=== PATIENT | male | born 1960 | race African-American/Black ===

== ENCOUNTER 2018-07-08 19:48 | Inpatient (IN) | payer OTHER ==
[~2018-07-08] VITALS: Ht 180.3 cm; Wt 84.8 kg
[2018-07-08 19:50] VITALS: BP 160/102
[2018-07-08] MEDS ORDERED: UNOBMED (19:56)
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
[2018-07-08 20:30] LABS: EOSINOPHILS % (AUTO) 2.3 % (0.0-3.0); HEMATOCRIT 28.1 % (42.0-52.0); HEMOGLOBIN 9.2 G/DL (14.2-18.0); LYMPHOCYTES % (AUTO) 11.8 % (20.0-45.0); MEAN CORPUSCULAR VOLUME 101 FL (80-99); MONOCYTES % (AUTO) 8.7 % (1.0-10.0); NEUTROPHILS % (AUTO) 74.2 % (45.0-75.0); PLATELET COUNT 239 K/UL (150-450); RED BLOOD COUNT 2.78 M/UL (4.70-6.10); RED CELL DISTRIBUTION WIDTH 12.7 % (11.6-14.8)
[2018-07-08] MEDS ORDERED: Nitroglycerin 2% oint pkt TOPIC ONE (21:00)
[2018-07-08 21:02] LABS: ANION GAP 20 mmol/L (5-15); BLOOD UREA NITROGEN 91 mg/dL (7-18); CALCIUM 7.4 MG/DL (8.5-10.1); CARBON DIOXIDE 20 MMOL/L (21-32); CHLORIDE 98 MMOL/L (98-107); CREATININE 9.3 MG/DL (0.55-1.30); SODIUM 138 MMOL/L (136-145)
[2018-07-08 21:15] LABS: ALANINE AMINOTRANSFERASE 42 U/L (12-78); ALBUMIN 3.6 G/DL (3.4-5.0); ALBUMIN/GLOBULIN RATIO 0.9 (1.0-2.7); ALKALINE PHOSPHATASE 101 U/L (46-116); ASPARTATE AMINO TRANSFERASE 35 U/L (15-37); BILIRUBIN,TOTAL 0.2 MG/DL (0.2-1.0); CREATINE KINASE 1287 U/L (26-308)
[2018-07-08] MEDS ORDERED: Enoxaparin 60mg Inj SUBQ ONE (21:30)
[2018-07-08] MEDS ORDERED: Aspirin Baby 81mg ORAL ONE (22:00)
[2018-07-08 22:39] VITALS: BP 150/129
[2018-07-08] MEDS ORDERED: Heparin 5000 units/ml inj IV SCH (23:15)
[2018-07-08] MEDS ORDERED: Heparin 25,000u/D5W 500ml 500 ML IV SCH (23:15)
[2018-07-08 23:48] LABS: INR 0.9 (0.9-1.1)
[2018-07-09] VITALS: BP 151/99
[2018-07-09] MEDS ORDERED: Heparin 5000 units/ml inj IV SCH
[2018-07-09 07:13] LABS: EOSINOPHILS % (AUTO) 4.4 % (0.0-3.0); HEMATOCRIT 26.8 % (42.0-52.0); HEMOGLOBIN 8.7 G/DL (14.2-18.0); LYMPHOCYTES % (AUTO) 16.6 % (20.0-45.0); MEAN CORPUSCULAR VOLUME 102 FL (80-99); PLATELET COUNT 237 K/UL (150-450); RED BLOOD COUNT 2.64 M/UL (4.70-6.10); RED CELL DISTRIBUTION WIDTH 12.4 % (11.6-14.8); WHITE BLOOD COUNT 5.7 K/UL (4.8-10.8)
[2018-07-09 07:28] LABS: ANION GAP 16 mmol/L (5-15); BLOOD UREA NITROGEN 88 mg/dL (7-18); CALCIUM 6.9 MG/DL (8.5-10.1); CARBON DIOXIDE 21 MMOL/L (21-32); CHLORIDE 99 MMOL/L (98-107); CHOLESTEROL 144 MG/DL (< 200); CREATININE 9.4 MG/DL (0.55-1.30); HDL CHOLESTEROL 89 MG/DL (40-60); POTASSIUM 2.9 MMOL/L (3.5-5.1); SODIUM 136 MMOL/L (136-145); TRIGLYCERIDES 64 MG/DL (30-150)
[2018-07-09 08:00] VITALS: BP 175/117
--- NOTE | 2018-07-09 09:03 | History and Physical ---
History & Physical (DB) History & Physical History & Physical DICT # [id number] Edgard Webb MD Jul 09, 2018 09:03
[2018-07-09] MEDS ORDERED: Heparin 25,000u/D5W 500ml 500 ML IV SCH ×2 (09:25)
--- NOTE | 2018-07-09 10:19 | Cardiac Electrophysiology PN ---
Subjective Subjective [id number] Objective Last 24 Hour Vital Signs Date Time Temp Pulse Resp B/P (MAP) Pulse Ox O2 Delivery O2 Flow Rate FiO2 07/09/18 04:00 111 07/09/18 00:00 98.0 115 22 151/99 (116) 96 07/09/18 00:00 111 07/08/18 23:34 Room Air 07/08/18 23:00 98.4 113 17 150/129 97 Room Air 07/08/18 22:39 98.4 113 17 150/129 97 Room Air 07/08/18 22:10 165/89 07/08/18 21:44 107 18 Room Air 07/08/18 21:13 165/89 07/08/18 19:51 98.6 107 18 177/95 97 Room Air 07/08/18 19:50 98.4 112 21 160/102 95 Room Air Intake and Output 07/08/18 07/09/18 19:00 07:00 Intake Total 17 ml Output Total 500 ml Balance -483 ml IV Total 17 ml Output Urine Total 500 ml # Voids 4 Laboratory Tests Test 07/08/18 20:20 07/08/18 20:30 07/09/18 01:05 07/09/18 04:00 White Blood Count 6.0 K/UL (4.8-10.8) 5.7 K/UL (4.8-10.8) Red Blood Count 2.78 M/UL (4.70-6.10) L 2.64 M/UL (4.70-6.10) L Hemoglobin 9.2 G/DL (14.2-18.0) L 8.7 G/DL (14.2-18.0) L Hematocrit 28.1 % (42.0-52.0) L 26.8 % (42.0-52.0) L Mean Corpuscular Volume 101 FL (80-99) H 102 FL (80-99) H Mean Corpuscular Hemoglobin 33.2 PG (27.0-31.0) H 32.8 PG (27.0-31.0) H Mean Corpuscular Hemoglobin Concent 32.8 G/DL (32.0-36.0) 32.3 G/DL (32.0-36.0) Red Cell Distribution Width 12.7 % (11.6-14.8) 12.4 % (11.6-14.8) Platelet Count 239 K/UL (150-450) 237 K/UL (150-450) Mean Platelet Volume 7.9 FL (6.5-10.1) 7.6 FL (6.5-10.1) Neutrophils (%) (Auto) 74.2 % (45.0-75.0) 65.0 % (45.0-75.0) Lymphocytes (%) (Auto) 11.8 % (20.0-45.0) L 16.6 % (20.0-45.0) L Monocytes (%) (Auto) 8.7 % (1.0-10.0) 12.0 % (1.0-10.0) H Eosinophils (%) (Auto) 2.3 % (0.0-3.0) 4.4 % (0.0-3.0) H Basophils (%) (Auto) 3.0 % (0.0-2.0) H 2.0 % (0.0-2.0) Sodium Level 138 MMOL/L (136-145) 136 MMOL/L (136-145) Potassium Level 3.0 MMOL/L (3.5-5.1) L 2.9 MMOL/L (3.5-5.1) L Chloride Level 98 MMOL/L (98-107) 99 MMOL/L (98-107) Carbon Dioxide Level 20 MMOL/L (21-32) L 21 MMOL/L (21-32) Anion Gap 20 mmol/L (5-15) H 16 mmol/L (5-15) H Blood Urea Nitrogen 91 mg/dL (7-18) H 88 mg/dL (7-18) H Creatinine 9.3 MG/DL (0.55-1.30) H 9.4 MG/DL (0.55-1.30) H Estimat Glomerular Filtration Rate 5.9 mL/min (>60) 7.0 mL/min (>60) Glucose Level 129 MG/DL (74-106) H 142 MG/DL (74-106) H Calcium Level 7.4 MG/DL (8.5-10.1) L 6.9 MG/DL (8.5-10.1) L Total Bilirubin 0.2 MG/DL (0.2-1.0) Aspartate Amino Transf (AST/SGOT) 35 U/L (15-37) Alanine Aminotransferase (ALT/SGPT) 42 U/L (12-78) Alkaline Phosphatase 101 U/L (46-116) Total Creatine Kinase 1287 U/L (26-308) H Creatine Kinase MB 5.0 NG/ML (0.0-3.6) H Creatine Kinase MB Relative Index 0.3 Troponin I 0.197 ng/mL (0.000-0.056) 0.222 ng/mL (0.000-0.056) Pro-B-Type Natriuretic Peptide > 63161 pg/mL (0-125) H Total Protein 7.4 G/DL (6.4-8.2) Albumin 3.6 G/DL (3.4-5.0) Globulin 3.8 g/dL Albumin/Globulin Ratio 0.9 (1.0-2.7) L Lipase 585 U/L (73-393) H Prothrombin Time 10.0 SEC (9.30-11.50) Prothromb Time International Ratio 0.9 (0.9-1.1) Activated Partial Thromboplast Time 30 SEC (23-33) Hemoglobin A1c 5.2 % (4.3-6.0) Thyroid Stimulating Hormone (TSH) 1.540 uiU/mL (0.358-3.740) Urine Opiates Screen Negative (NEGATIVE) Urine Barbiturates Screen Negative (NEGATIVE) Phencyclidine (PCP) Screen Negative (NEGATIVE) Urine Amphetamines Screen Negative (NEGATIVE) Urine Benzodiazepines Screen Negative (NEGATIVE) Urine Cocaine Screen Positive (NEGATIVE) H Urine Marijuana (THC) Screen Negative (NEGATIVE) Triglycerides Level 64 MG/DL (30-150) Cholesterol Level 144 MG/DL (< 200) LDL Cholesterol 51 mg/dL (<100) HDL Cholesterol 89 MG/DL (40-60) H Cholesterol/HDL Ratio 1.6 (3.3-4.4) L Test 07/09/18 07:20 Activated Partial Thromboplast Time 32 SEC (23-33) Troponin I 0.243 ng/mL (0.000-0.056) Microbiology Date/Time Source Procedure Growth Status 07/08/18 22:00 Rectum Received German Gray MD Jul 09, 2018 10:19
[2018-07-09] MEDS: Aspirin Baby 81mg ORAL SCH (10:25)
--- NOTE | 2018-07-09 10:35 | Consultation ---
Consult Note Consult Note asked to eval for renal failure Chief Complaint: Dyspnea/Respdistress Patient present with complaints of shortness of breath Patient reports that he was discharged from [facility] However comes here as he continues to feel short of breath patient reports that he has'kidney problems' Reports that he was supposed to be getting dialysis Also reports CHF Patient reports she also had a recent walking pneumonia diagnosed Patient reports recent epistaxis Denies any vomiting or diarrhea Complains of exertional dyspnea No Known Allergies (Unverified , 07/08/18) Past Medical History: No History, Except For Hx Cardiac Problems: Yes - CHF Hx Hypertension: Yes Hx COPD: Yes Hx Diabetes: No - RENAL FAILURE examined data reviewed discussed with publications distribution clerk/Plan Acute on Chronic renal failure Anemia Elevated troponin Hypertensive renal and heart disease Cocaine abuse Cardiomyopathy Simpson IV fluid 2D Echo BRIDGETT kidneys monitor renal parameters BP control Avoid nephrotoxics Richar Cm MD Jul 09, 2018 10:35
[2018-07-09 11:26] LABS: CREATINE KINASE 1044 U/L (26-308)
[2018-07-09 11:27] LABS: FERRITIN 221 NG/ML (8-388)
[2018-07-09] MEDS: Pantoprazole Inj IVP SCH (11:31)
--- NOTE | 2018-07-09 11:34 | Diagnostic Imaging Report ---
Indication: Chest pain Technique: XRAY Chest 1v Comparison: None Findings: Heart is enlarged. Mediastinal contours appear sharp. There is minimal likely atelectasis at the left base. Otherwise no definite focal airspace consolidation. No significant pleural effusion. No evidence of pneumothorax. No acute osseous abnormality. Impression: Cardiomegaly. Very mild left basilar likely subsegmental atelectasis
[2018-07-09] MEDS: Albuterol/Ipratropium 3ml neb HHN PRN ×3 (12:40→21:55)
--- NOTE | 2018-07-09 12:58 | Diagnostic Imaging Report ---
Indication: Abnormal renal function Technique: US Renal Comp Comparison: None Findings: Right kidney measures 9.1 cm in length. Left kidney measures 9.3 cm in length. Both kidneys demonstrate normal echogenicity. Mild fullness of the bilateral renal collecting systems noted. No sonographically appreciable renal stones. Simple appearing renal cysts are noted bilaterally. Bladder is mildly distended. Ureteral jets are noted bilaterally. There is mild bladder wall thickening. Imaged portions of the liver and inferior vena cava are grossly unremarkable. Bilateral pleural effusions incidentally identified. Impression: * Mild fullness of the bilateral renal collecting systems without radiographically appreciable stone and observed bilateral ureteral jets. Findings may be related to mild bladder distention. Consider repeat exam after bladder decompression. * Renal echogenicity appears within normal limits bilaterally. * Simple appearing renal cysts noted bilaterally. * Incidental note made of bilateral pleural effusions.
[2018-07-09 13:41] LABS: IRON 51 ug/dL (50-175); TOTAL IRON BINDING CAPACITY 227 ug/dL (250-450)
[2018-07-09 13:42] LABS: % IRON SATURATION 22 % (15-50)
--- NOTE | 2018-07-09 15:30 | History and Physical Report ---
DATE OF ADMISSION: 07/08/2018 REASON FOR ADMISSION: Shortness of breath. HISTORY OF PRESENT ILLNESS: The patient is a 58-year-old male with history of cocaine abuse, heart failure and renal insufficiency, recently discharged from [facility] with pneumonia and CHF. He was told that he needs dialysis, now presenting with shortness of breath and epistaxis in the setting of recent cocaine use. Upon arrival to the ER, he has been afebrile, but had sinus tachycardia and hypertensive urgency. He has been saturating well on room air. He has had elevated cardiac biomarkers and was started on Lovenox in the ER. His U-tox was positive for cocaine. Chest x-ray in the ER, per report, was consistent with heart failure, but is not available for review. PAST MEDICAL HISTORY: 1. CHF. 2. Renal disease. 3. Cocaine use. 4. Hypertension. PAST SURGICAL HISTORY: He denies. ALLERGIES: No known drug allergies. MEDICATIONS: Prior to admission medications, none. SOCIAL HISTORY: Tobacco and cocaine use. No alcohol. FAMILY HISTORY: Noncontributory. REVIEW OF SYSTEMS: Negative other than history of present illness. PHYSICAL EXAMINATION: VITAL SIGNS: Temperature 98, pulse 115, blood pressure 151/99, and respiratory rate 22. Saturating 96% on room air. GENERAL: He is a frail male, in no acute distress HEENT: Normocephalic and atraumatic. Oropharynx with moist mucous membranes. NECK: Supple without lymphadenopathy or JVD. CHEST: Clear with bibasilar rales. HEART: Regular rate and rhythm. ABDOMEN: Soft, nontender, and nondistended. EXTREMITIES: No cyanosis or clubbing. There is trace edema. ANCILLARY DATA: White count 5.7, hemoglobin 8.7, and platelet count 237. INR 0.9. Sodium 136, potassium 2.9, chloride 99, bicarb 21, BUN 98, and creatinine 9.4. Glucose 142. Calcium 6.9. A1c 5.2. Troponin 0.197, 0.222, 0.243. Total cholesterol 144, LDL 51, HDL 89. TSH 1.5. Urine toxicology is positive for cocaine. Chest x-ray per report, no acute findings but pending. ASSESSMENT: The patient is a 58-year-old male with history of cocaine and tobacco abuse, congestive heart failure, and renal impairment, presenting with decompensated heart failure and abnormal renal function with marked uremia. He has previously been told he needs dialysis. He is now being admitted for acute coronary syndrome and likely need for dialysis. PROBLEM LIST: 1. Congestive heart failure with acute decompensated heart failure. 2. Abnormal renal function, likely cardiorenal syndrome. 3. History of cocaine abuse with current positive tox screen. 4. Anemia. 5. Hypertension with hypertensive urgency. 6. Acute coronary syndrome/non-ST elevation myocardial infarction. TREATMENT PLAN: 1. Admit to telemetry. 2. Start IV unfractionated heparin. 3. Monitor for further bleeding. 4. Aspirin. 5. Nitroglycerin drip. 6. Lasix 40 mg IV daily for now and assess response. 7. Replete potassium. 8. Renal evaluation. 9. Likely will need dialysis. 10. Cardiology evaluation. 11. Echocardiogram. 12. Followup chest x-ray. 13. Cardiac diet. Edgard Webb M.D. DR: HANK JOB#: [id number] CC:
--- NOTE | 2018-07-09 15:45 | Consultation ---
DATE OF CONSULTATION: 07/09/2018 CARDIOLOGY CONSULTATION CONSULTING PHYSICIAN: German Gray M.D. REFERRING PHYSICIAN: Dr. Edgard Webb. REASON FOR CONSULTATION: Elevated troponin. HISTORY OF PRESENT ILLNESS: The patient is a 58-year-old gentleman with history of active cocaine use, was brought to the emergency room for shortness of breath. The patient apparently was recently discharged from [facility]. The patient continues to be short of breath. He also says he has kidney problems and he was supposed to get dialysis. The patient was admitted and a Cardiology consultation was requested. The patient also has had epistaxis and he admits to using cocaine. REVIEW OF SYSTEMS: Negative other than what was mentioned in the history of present illness. PAST MEDICAL HISTORY: 1. Hypertension. 2. Congestive heart failure. 3. COPD. 4. Chronic kidney disease. FAMILY HISTORY: Noncontributory. SOCIAL HISTORY: He continues to use cocaine actively. PHYSICAL EXAMINATION: VITAL SIGNS: Blood pressure 151/99, pulse 111, respirations 22, and temperature 98 degrees. HEAD AND NECK: Shows no JVD. LUNGS: Decreased breath sounds. CARDIOVASCULAR: Shows regular S1 and S2 with no gallop or murmur. ABDOMEN: Soft. EXTREMITIES: No pitting edema. LABORATORY AND DIAGNOSTIC DATA: His EKG showed sinus tachycardia at rate of 109 with nonspecific T-wave abnormalities. His labs show white count 5.7, hemoglobin 8.7, hematocrit 26.8, and platelet count 237,000. Sodium 136, potassium 2.9, BUN 88, and creatinine 9.4. Troponin 0.19, 0.22, and 0.24. ASSESSMENT AND PLAN: 1. Non-ST elevation myocardial infarction, likely type 2 in the setting of active cocaine use and renal failure. Troponin levels are flat at 0.2, 0.2 and 0.2. We will avoid beta-pablo in view of active cocaine use. Use aspirin and add Lipitor to his medical regimen. We will also get an echocardiogram to evaluate for ejection fraction and wall motion abnormality. 2. Hypertension. The patient is on Lasix 40 mg IV daily, likely will need dialysis under management Dr. Cm. Avoid ARMAND inhibitor and angiotensin-receptor pablo. Add Norvasc 5 mg daily to his medical regimen. 3. End-stage renal disease, has not been started on hemodialysis. Further evaluation by Dr. Fouladian. 4. Substance use with cocaine. Avoid beta-blockers. 5. Recent pneumonia. 6. Questionable congestive heart failure. Echocardiogram is pending. Thank you very much for allowing me to participate in the care of this patient. Please do not hesitate to contact me for any questions regarding my evaluation. German Gray M.D. DR: FEDERICO JOB#: [id number] CC:
[2018-07-09 16:00] VITALS: BP 183/123
[2018-07-09] MEDS: Docusate 100mg cap ORAL SCH (19:41)
[2018-07-09 20:00] VITALS: BP 161/102
[2018-07-10] VITALS: BP 162/104
[2018-07-10 04:00] VITALS: BP 173/107
[2018-07-10] MEDS: Albuterol/Ipratropium 3ml neb HHN PRN ×3 (05:10→18:51)
[2018-07-10 05:56] LABS: HEMATOCRIT 24.5 % (42.0-52.0); HEMOGLOBIN 7.9 G/DL (14.2-18.0); MEAN CORPUSCULAR VOLUME 103 FL (80-99); PLATELET COUNT 192 K/UL (150-450); RED BLOOD COUNT 2.39 M/UL (4.70-6.10); RED CELL DISTRIBUTION WIDTH 12.5 % (11.6-14.8); WHITE BLOOD COUNT 4.7 K/UL (4.8-10.8)
[2018-07-10 06:38] LABS: ALANINE AMINOTRANSFERASE 38 U/L (12-78); ALBUMIN/GLOBULIN RATIO 0.9 (1.0-2.7); ALKALINE PHOSPHATASE 82 U/L (46-116); ANION GAP 15 mmol/L (5-15); ASPARTATE AMINO TRANSFERASE 22 U/L (15-37); BILIRUBIN,TOTAL 0.2 MG/DL (0.2-1.0); BLOOD UREA NITROGEN 88 mg/dL (7-18); CALCIUM 6.6 MG/DL (8.5-10.1); CARBON DIOXIDE 20 MMOL/L (21-32); CHLORIDE 102 MMOL/L (98-107); CHOLESTEROL 135 MG/DL (< 200); CREATININE 8.9 MG/DL (0.55-1.30); HDL CHOLESTEROL 94 MG/DL (40-60); SODIUM 137 MMOL/L (136-145); TRIGLYCERIDES 28 MG/DL (30-150)
[2018-07-10 06:39] LABS: PHOSPHORUS 5.8 MG/DL (2.5-4.9)
[2018-07-10 08:00] VITALS: BP 167/100
[2018-07-10] MEDS: Docusate 100mg cap ORAL SCH ×3 (09:00→17:22)
[2018-07-10 10:28] LABS: CREATINE KINASE 790 U/L (26-308)
[2018-07-10] MEDS: Pantoprazole Inj IVP SCH (10:31)
[2018-07-10] MEDS: Aspirin Baby 81mg ORAL SCH (10:33)
[2018-07-10 12:00] VITALS: BP 181/105
--- NOTE | 2018-07-10 12:07 | Cardiac Electrophysiology PN ---
Assessment/Plan Assessment/Plan 1. Non-ST elevation myocardial infarction, likely type 2 in the setting of active cocaine use and renal failure. Troponin levels are flat at 0.2, 0.2 and 0.2.Avoid beta-pablo in view of active cocaine use. Use aspirin and Lipitor to his medical regimen. EF 45% 2. Hypertension. On Norvasc 5 mg bid and Clonidine patch Avoid ARMAND inhibitor and angiotensin-receptor pablo. 3. End-stage renal disease, has not been started on hemodialysis. Cr 8.[address] Cm. 4. Substance use with cocaine. Avoid beta-blockers. 5. Recent pneumonia. 6. Congestive heart failure. Echocardiogram EF 45% Subjective Subjective In sinus tach diuresing well on IV Lasix Objective Last 24 Hour Vital Signs Date Time Temp Pulse Resp B/P (MAP) Pulse Ox O2 Delivery O2 Flow Rate FiO2 07/10/18 11:19 99 22 100 Room Air 21 07/10/18 11:15 98 24 Room Air 07/10/18 11:14 98 24 99 Room Air 07/10/18 10:31 103 173/107 07/10/18 09:00 Room Air 07/10/18 08:00 102 07/10/18 08:00 96.8 102 20 167/100 (122) 98 07/10/18 05:25 103 20 100 Room Air 21 07/10/18 05:25 21 07/10/18 05:21 173/107 07/10/18 05:10 100 20 96 Room Air 21 07/10/18 04:00 104 07/10/18 04:00 98.0 19 173/107 (129) 95 07/10/18 00:00 104 07/10/18 00:00 98.0 98 19 162/104 (123) 97 07/09/18 22:05 99 20 99 Room Air 21 07/09/18 22:04 21 07/09/18 21:55 98 20 95 Room Air 21 07/09/18 21:00 Room Air 07/09/18 20:22 98 20 Room Air 21 07/09/18 20:08 181/114 07/09/18 20:00 97.9 100 20 161/102 (121) 96 07/09/18 20:00 101 07/09/18 19:43 102 181/114 12/27/18 16:18 183/123 07/09/18 16:00 107 07/09/18 16:00 98.8 105 22 183/123 (143) 92 07/09/18 15:56 101 20 100 Room Air 21 07/09/18 15:45 100 20 93 Room Air 21 07/09/18 15:45 21 07/09/18 12:49 100 20 100 Room Air 21 07/09/18 12:41 104 20 100 Room Air 21 07/09/18 12:41 21 Intake and Output 07/09/18 07/10/18 19:00 07:00 Intake Total 1340 ml Balance 1340 ml Intake Oral 1340 ml # Voids 8 3 # Bowel Movements 1 Laboratory Tests Test 07/09/18 15:34 07/09/18 15:42 07/10/18 01:14 07/10/18 04:00 C-Reactive Protein, Quantitative 1.7 mg/dL (0.00-0.90) H Activated Partial Thromboplast Time 30 SEC (23-33) Troponin I 0.150 ng/mL (0.000-0.056) 0.101 ng/mL (0.000-0.056) Total Creatine Kinase 790 U/L (26-308) H White Blood Count 4.7 K/UL (4.8-10.8) L Red Blood Count 2.39 M/UL (4.70-6.10) L Hemoglobin 7.9 G/DL (14.2-18.0) L Hematocrit 24.5 % (42.0-52.0) L Mean Corpuscular Volume 103 FL (80-99) H Mean Corpuscular Hemoglobin 33.2 PG (27.0-31.0) H Mean Corpuscular Hemoglobin Concent 32.4 G/DL (32.0-36.0) Red Cell Distribution Width 12.5 % (11.6-14.8) Platelet Count 192 K/UL (150-450) Mean Platelet Volume 7.0 FL (6.5-10.1) Neutrophils (%) (Auto) % (45.0-75.0) Lymphocytes (%) (Auto) % (20.0-45.0) Monocytes (%) (Auto) % (1.0-10.0) Eosinophils (%) (Auto) % (0.0-3.0) Basophils (%) (Auto) % (0.0-2.0) Erythrocyte Sedimentation Rate 81 MM/HR (0-20) H Urine Eosinophils Pending Sodium Level 137 MMOL/L (136-145) Potassium Level 4.0 MMOL/L (3.5-5.1) Chloride Level 102 MMOL/L (98-107) Carbon Dioxide Level 20 MMOL/L (21-32) L Anion Gap 15 mmol/L (5-15) Blood Urea Nitrogen 88 mg/dL (7-18) H Creatinine 8.9 MG/DL (0.55-1.30) H Estimat Glomerular Filtration Rate 7.5 mL/min (>60) Glucose Level 155 MG/DL (74-106) H Uric Acid 9.0 MG/DL (2.6-7.2) H Calcium Level 6.6 MG/DL (8.5-10.1) L Phosphorus Level 5.8 MG/DL (2.5-4.9) H Magnesium Level 1.6 MG/DL (1.8-2.4) L Total Bilirubin 0.2 MG/DL (0.2-1.0) Aspartate Amino Transf (AST/SGOT) 22 U/L (15-37) Alanine Aminotransferase (ALT/SGPT) 38 U/L (12-78) Alkaline Phosphatase 82 U/L (46-116) Pro-B-Type Natriuretic Peptide 50776 pg/mL (0-125) H Total Protein 6.4 G/DL (6.4-8.2) Albumin 3.0 G/DL (3.4-5.0) L Globulin 3.4 g/dL Albumin/Globulin Ratio 0.9 (1.0-2.7) L Triglycerides Level 28 MG/DL (30-150) L Cholesterol Level 135 MG/DL (< 200) LDL Cholesterol 48 mg/dL (<100) HDL Cholesterol 94 MG/DL (40-60) H Cholesterol/HDL Ratio 1.4 (3.3-4.4) L Test 07/10/18 09:10 Troponin I 0.090 ng/mL (0.000-0.056) Microbiology Date/Time Source Procedure Growth Status 07/08/18 22:00 Rectum - Preliminary Resulted 07/08/18 22:00 Rectum Received Objective HEAD AND NECK: No JVD. LUNGS: Decreased breath sounds. CARDIOVASCULAR: Regular S1 and S2 with no gallop or murmur. ABDOMEN: Soft. EXTREMITIES: No pitting edema. German Gray MD Jul 10, 2018 12:07
--- NOTE | 2018-07-10 12:56 | Nephrology Progress Note ---
Assessment/Plan Problem List: (1) ARF (acute renal failure) (2) Cocaine abuse (3) Acute exacerbation of CHF (congestive heart failure) (4) Hypertensive cardiomegaly with heart failure Assessment Acute on Chronic renal failure Anemia Elevated troponin Hypertensive renal and heart disease Cocaine abuse Cardiomyopathy Plan Simpson IV fluid slow BP control 2D Echo LV Hypokinesis 45% EJ Fx BRIDGETT kidneys * Mild fullness of the bilateral renal collecting systems without radiographically appreciable stone and observed bilateral ureteral jets. Findings may be related to mild bladder distention. Consider repeat exam after bladder decompression. monitor renal parameters Avoid nephrotoxics renal diet flomax Subjective ROS Limited/Unobtainable: No Constitutional: Reports: malaise Objective Objective Last 24 Hour Vital Signs Date Time Temp Pulse Resp B/P (MAP) Pulse Ox O2 Delivery O2 Flow Rate FiO2 07/10/18 11:19 99 22 100 Room Air 21 07/10/18 11:15 98 24 Room Air 21 07/10/18 11:14 98 24 99 Room Air 07/10/18 10:31 103 173/107 07/10/18 09:00 Room Air 07/10/18 08:00 102 07/10/18 08:00 96.8 102 20 167/100 (122) 98 07/10/18 05:25 103 20 100 Room Air 21 07/10/18 05:25 21 07/10/18 05:21 173/107 07/10/18 05:10 100 20 96 Room Air 21 07/10/18 04:00 104 07/10/18 04:00 98.0 19 173/107 (129) 95 07/10/18 00:00 104 07/10/18 00:00 98.0 98 19 162/104 (123) 97 07/09/18 22:05 99 20 99 Room Air 21 07/09/18 22:04 21 07/09/18 21:55 98 20 95 Room Air 21 07/09/18 21:00 Room Air 07/09/18 20:22 98 20 Room Air 21 07/09/18 20:08 181/114 07/09/18 20:00 97.9 100 20 161/102 (121) 96 07/09/18 20:00 101 07/09/18 19:43 102 181/114 07/09/18 16:18 183/123 12/27/18 16:00 107 07/09/18 16:00 98.8 105 22 183/123 (143) 92 07/09/18 15:56 101 20 100 Room Air 21 07/09/18 15:45 100 20 93 Room Air 21 07/09/18 15:45 21 Intake and Output 07/09/18 07/10/18 19:00 07:00 Intake Total 1340 ml Balance 1340 ml Intake Oral 1340 ml # Voids 8 3 # Bowel Movements 1 Laboratory Tests 07/09/18 15:34: C-Reactive Protein, Quantitative 1.7H 07/09/18 15:42: Activated Partial Thromboplast Time 30, Troponin I 0.150H 07/10/18 01:14: Troponin I 0.101H, Total Creatine Kinase 790H 07/10/18 04:00: White Blood Count 4.7L, Red Blood Count 2.39L, Hemoglobin 7.9L, Hematocrit 24.5L , Mean Corpuscular Volume 103H, Mean Corpuscular Hemoglobin 33.2H, Mean Corpuscular Hemoglobin Concent 32.4, Red Cell Distribution Width 12.5, Platelet Count 192, Mean Platelet Volume 7.0, Neutrophils (%) (Auto) , Lymphocytes (%) ( Auto) , Monocytes (%) (Auto) , Eosinophils (%) (Auto) , Basophils (%) (Auto) , Erythrocyte Sedimentation Rate 81H, Urine Eosinophils [Pending], Sodium Level 137, Potassium Level 4.0, Chloride Level 102, Carbon Dioxide Level 20L, Anion Gap 15, Blood Urea Nitrogen 88H, Creatinine 8.9H, Estimat Glomerular Filtration Rate 7.5, Glucose Level 155H, Uric Acid 9.0H, Calcium Level 6.6L, Phosphorus Level 5.8H, Magnesium Level 1.6L, Total Bilirubin 0.2, Aspartate Amino Transf ( AST/SGOT) 22, Alanine Aminotransferase (ALT/SGPT) 38, Alkaline Phosphatase 82, Pro-B-Type Natriuretic Peptide 52165P, Total Protein 6.4, Albumin 3.0L, Globulin 3.4, Albumin/Globulin Ratio 0.9L, Triglycerides Level 28L, Cholesterol Level 135, LDL Cholesterol 48, HDL Cholesterol 94H, Cholesterol/HDL Ratio 1.4L 07/10/18 09:10: Troponin I 0.090H Height (Feet): 5 Height (Inches): 11.00 Weight (Pounds): 162 General Appearance: no apparent distress Cardiovascular: tachycardia Respiratory/Chest: decreased breath sounds Abdomen: soft Richar Cm MD Jul 10, 2018 12:56
[2018-07-10] MEDS: Tamsulosin 0.4mg cap ORAL SCH ×2 (13:12→17:22)
[2018-07-10 16:00] VITALS: BP 174/114
--- NOTE | 2018-07-10 16:57 | Pulmonology Progress Note ---
Assessment/Plan Problems: (1) Epistaxis (2) Acute exacerbation of CHF (congestive heart failure) (3) Hypertensive cardiomegaly with heart failure (4) ACS (acute coronary syndrome) (5) Cocaine abuse (6) ARF (acute renal failure) Assessment/Plan ASSESSMENT: The patient is a 58-year-old male with history of cocaine and tobacco abuse, congestive heart failure, and renal impairment, presenting with decompensated heart failure and abnormal renal function with marked uremia. He has previously been told he needs dialysis. He is now being admitted for acute coronary syndrome and likely need for dialysis. PROBLEM LIST: 1. Congestive heart failure with acute decompensated heart failure. 2. Abnormal renal function, likely cardiorenal syndrome. 3. History of cocaine abuse with current positive tox screen. 4. Anemia. 5. Hypertension with hypertensive urgency. 6. Acute coronary syndrome/non-ST elevation myocardial infarction. TREATMENT PLAN: -Telemetry -Diuresis as able -BP recs -F/U cards and renal recs -Heparin held 2/2 bleeding -Cardiac diet -Needs OP cards F/U -Monitor HH, IV PPI, F/U FOBT, heme eval, should have GI eval at some point Subjective Allergies: Coded Allergies: No Known Allergies (Unverified , 07/08/18) Subjective AFVSS BP elevated on RA feels better still with epistaxis LVEF 45% Objective Last 24 Hour Vital Signs Date Time Temp Pulse Resp B/P (MAP) Pulse Ox O2 Delivery O2 Flow Rate FiO2 07/10/18 16:19 174/114 07/10/18 16:00 102 07/10/18 16:00 96.8 107 20 174/114 (134) 99 07/10/18 13:14 173/107 07/10/18 12:00 97.3 99 20 181/105 (130) 99 07/10/18 12:00 99 07/10/18 11:19 99 22 100 Room Air 21 07/10/18 11:15 98 24 Room Air 21 07/10/18 11:14 98 24 99 Room Air 21 07/10/18 10:31 103 173/107 07/10/18 09:00 Room Air 07/10/18 08:00 102 07/10/18 08:00 96.8 102 20 167/100 (122) 98 07/10/18 05:25 103 20 100 Room Air 21 07/10/18 05:25 21 07/10/18 05:21 173/107 07/10/18 05:10 100 20 96 Room Air 21 07/10/18 04:00 104 07/10/18 04:00 98.0 19 173/107 (129) 95 07/10/18 00:00 104 07/10/18 00:00 98.0 98 19 162/104 (123) 97 07/09/18 22:05 99 20 99 Room Air 21 07/09/18 22:04 21 07/09/18 21:55 98 20 95 Room Air 21 07/09/18 21:00 Room Air 07/09/18 20:22 98 20 Room Air 21 07/09/18 20:08 181/114 07/09/18 20:00 97.9 100 20 161/102 (121) 96 07/09/18 20:00 101 07/09/18 19:43 102 181/114 Intake and Output 07/09/18 07/10/18 19:00 07:00 Intake Total 1340 ml Balance 1340 ml Intake Oral 1340 ml # Voids 8 3 # Bowel Movements 1 General Appearance: WD/WN, no acute distress HEENT: normocephalic, atraumatic, anicteric, mucous membranes moist Respiratory/Chest: chest wall non-tender, lungs clear - but decreased @ bases, normal breath sounds, no respiratory distress Cardiovascular: normal peripheral pulses, normal rate, regular rhythm Abdomen: normal bowel sounds, soft, non tender, no organomegaly, non distended , no mass Extremities: no cyanosis, no clubbing, no edema Microbiology Date/Time Source Procedure Growth Status 07/08/18 22:00 Rectum - Preliminary Resulted 07/08/18 22:00 Rectum Received Laboratory Tests 07/10/18 01:14: Total Creatine Kinase 790H, Troponin I 0.101H 07/10/18 04:00: White Blood Count 4.7L, Red Blood Count 2.39L, Hemoglobin 7.9L, Hematocrit 24.5L , Mean Corpuscular Volume 103H, Mean Corpuscular Hemoglobin 33.2H, Mean Corpuscular Hemoglobin Concent 32.4, Red Cell Distribution Width 12.5, Platelet Count 192, Mean Platelet Volume 7.0, Neutrophils (%) (Auto) , Lymphocytes (%) ( Auto) , Monocytes (%) (Auto) , Eosinophils (%) (Auto) , Basophils (%) (Auto) , Erythrocyte Sedimentation Rate 81H, Urine Eosinophils [Pending], Sodium Level 137, Potassium Level 4.0, Chloride Level 102, Carbon Dioxide Level 20L, Anion Gap 15, Blood Urea Nitrogen 88H, Creatinine 8.9H, Estimat Glomerular Filtration Rate 7.5, Glucose Level 155H, Uric Acid 9.0H, Calcium Level 6.6L, Phosphorus Level 5.8H, Magnesium Level 1.6L, Total Bilirubin 0.2, Aspartate Amino Transf ( AST/SGOT) 22, Alanine Aminotransferase (ALT/SGPT) 38, Alkaline Phosphatase 82, Pro-B-Type Natriuretic Peptide 94062O, Total Protein 6.4, Albumin 3.0L, Globulin 3.4, Albumin/Globulin Ratio 0.9L, Triglycerides Level 28L, Cholesterol Level 135, LDL Cholesterol 48, HDL Cholesterol 94H, Cholesterol/HDL Ratio 1.4L 07/10/18 09:10: Troponin I 0.090H Current Medications Medications (Trade) Dose Ordered Sig/Harish Route PRN Reason Start Time Stop Time Status Last Admin Dose Admin Acetaminophen (Tylenol) 650 mg Q4H PRN ORAL Mild Pain/Temp > 100.5 07/08/18 23:15 08/07/18 23:14 07/10/18 00:43 Albuterol/ Ipratropium (Albuterol/ Ipratropium) 3 ml Q4H PRN HHN Shortness of Breath 07/09/18 12:30 07/14/18 12:29 07/10/18 11:12 Amlodipine Besylate (Norvasc) 5 mg BID ORAL 07/09/18 18:00 08/09/18 08:59 07/10/18 10:31 Aspirin (ASA) 81 mg DAILY ORAL 07/09/18 09:00 08/08/18 08:59 07/10/18 10:33 Clonidine HCl (Catapres Tab) 0.1 mg EVERY 8 HOURS ORAL 07/10/18 14:00 08/09/18 13:59 07/10/18 13:14 Clonidine HCl (Catapres Tab) 0.1 mg Q4H PRN ORAL BP over 165 syst 07/09/18 10:46 08/08/18 10:45 07/10/18 16:19 Dextrose (Dextrose 50%) 25 ml Q30M PRN IV Hypoglycemia 07/08/18 23:15 08/07/18 23:14 Dextrose (Dextrose 50%) 50 ml Q30M PRN IV Hypoglycemia 07/08/18 23:15 08/07/18 23:14 Diphenhydramine HCl (Benadryl) 25 mg Q6H PRN ORAL Itching/Pruritis 07/08/18 23:15 08/07/18 23:14 07/10/18 00:42 Docusate Sodium (Colace) 100 mg THREE TIMES A DAY ORAL 07/09/18 18:00 08/08/18 17:59 07/10/18 13:12 Pantoprazole (Protonix) 40 mg DAILY IVP 07/09/18 10:45 08/08/18 10:44 07/10/18 10:31 Sevelamer Carbonate (Renvela) 800 mg THREE TIMES A DAY ORAL 07/09/18 18:00 08/08/18 17:59 07/10/18 13:12 Sodium Chloride 1,000 ml @ 75 mls/hr [id number] IV 07/09/18 10:45 08/08/18 10:44 07/10/18 04:25 Tamsulosin HCl (Flomax) 0.4 mg BID ORAL 07/10/18 12:53 08/09/18 12:52 07/10/18 13:12 Edgard Webb MD Jul 10, 2018 16:57
[2018-07-10] MEDS ORDERED: HYDRALAZINE HCL50 MG ORAL (18:39)
[2018-07-10] MEDS ORDERED: FUROSEMIDE40 MG/5 ML ORAL (18:39)
[2018-07-10 20:00] VITALS: BP 174/110
[2018-07-11] VITALS (7 sets, daily range): BP systolic 136–185; BP diastolic 68–113
[2018-07-11] MEDS: Albuterol/Ipratropium 3ml neb HHN PRN ×4 (03:37→22:35)
--- NOTE | 2018-07-11 07:09 | Cardiology Report ---
APPROVED REPORT EXAM: Two-dimensional and M-mode echocardiogram with Doppler and color Doppler. INDICATION Chest Pain M-Mode DIMENSIONS IVSd0.9 (0.7-1.1cm)Left Atrium (MM)4.6 (1.6-4.0cm) LVDd5.1 (3.5-5.6cm)Aortic Root3.6 (2.0-3.7cm) PWd1.7 (0.7-1.1cm)Aortic Cusp Exc.2.1 (1.5-2.0cm) IVSs1.4 cm LVDs3.7 (2.5-4.0cm) PWs1.8 cm Normal left ventricular chamber size . Left ventricular ejection fraction estimated to be 55%. Mild left ventricular hypertrophy by 2-D. Trivial pericardial effusion . Mild bi-atrial enlargement. Right ventricular chamber sizes is within normal limits. Mild focal aortic valve sclerosis with adequate cusp excursion. Mildly thickened mitral valve leaflets with normal excursion. Mild mitral annulus and aortic root calcification. Pulmonic valve not well visualized. Normal tricuspid valve structure. IVC dilated at 2.7 cm with slightly physiologic collapse suggestive of increased RA pressure. A color flow and spectral Doppler study was performed and revealed: No aortic inssufiency . Moderate mitral regurgitation. Mitral inflow indicates restrictive pattern, implying severely elevated left atrial pressure (Grade III ). Mild tricuspid regurgitation. Tricuspid systolic velocities suggests peak right ventricular systolic pressure of 23 mmHg.
[2018-07-11] MEDS: Pantoprazole Inj IVP SCH (08:49)
[2018-07-11] MEDS: Tamsulosin 0.4mg cap ORAL SCH ×2 (08:50→17:09)
[2018-07-11] MEDS: Docusate 100mg cap ORAL SCH ×3 (08:51→17:15)
[2018-07-11] MEDS: Aspirin Baby 81mg ORAL SCH (08:51)
[2018-07-11 09:56] LABS: HEMATOCRIT 22.7 % (42.0-52.0); HEMOGLOBIN 7.3 G/DL (14.2-18.0); MEAN CORPUSCULAR VOLUME 102 FL (80-99); PLATELET COUNT 183 K/UL (150-450); RED BLOOD COUNT 2.24 M/UL (4.70-6.10); RED CELL DISTRIBUTION WIDTH 12.3 % (11.6-14.8); WHITE BLOOD COUNT 5.9 K/UL (4.8-10.8)
[2018-07-11 10:04] LABS: ANION GAP 14 mmol/L (5-15); BLOOD UREA NITROGEN 86 mg/dL (7-18); CALCIUM 7.4 MG/DL (8.5-10.1); CARBON DIOXIDE 19 MMOL/L (21-32); CHLORIDE 104 MMOL/L (98-107); CREATININE 8.4 MG/DL (0.55-1.30); POTASSIUM 4.1 MMOL/L (3.5-5.1); SODIUM 137 MMOL/L (136-145)
[2018-07-11 10:08] LABS: ALANINE AMINOTRANSFERASE 27 U/L (12-78); ALBUMIN 2.8 G/DL (3.4-5.0); ALBUMIN/GLOBULIN RATIO 0.8 (1.0-2.7); ALKALINE PHOSPHATASE 78 U/L (46-116); ASPARTATE AMINO TRANSFERASE 17 U/L (15-37); BILIRUBIN,TOTAL 0.2 MG/DL (0.2-1.0); PHOSPHORUS 5.2 MG/DL (2.5-4.9)
[2018-07-11] MEDS ORDERED: Allopurinol 100mg Tab ORAL SCH (13:45)
[2018-07-11] MEDS ORDERED: Minoxidil 2.5mg tab ORAL PRN (13:45)
[2018-07-11] MEDS ORDERED: Imdur 30mg tab ORAL SCH (13:45)
--- NOTE | 2018-07-11 13:49 | Nephrology Progress Note ---
Assessment/Plan Problem List: (1) ARF (acute renal failure) (2) Cocaine abuse (3) Acute exacerbation of CHF (congestive heart failure) (4) Hypertensive cardiomegaly with heart failure Assessment Acute on Chronic renal failure Anemia Elevated troponin Hypertensive renal and heart disease Cocaine abuse Cardiomyopathy Plan Simpson IV fluid slow BP control- adjust BP meds 2D Echo 55% ej fx BRIDGETT kidneys * Mild fullness of the bilateral renal collecting systems without radiographically appreciable stone and observed bilateral ureteral jets. Findings may be related to mild bladder distention. Consider repeat exam after bladder decompression. monitor renal parameters Avoid nephrotoxics renal diet flomax Subjective ROS Limited/Unobtainable: No Constitutional: Reports: malaise, weakness Objective Objective Last 24 Hour Vital Signs Date Time Temp Pulse Resp B/P (MAP) Pulse Ox O2 Delivery O2 Flow Rate FiO2 07/11/18 11:47 181/112 07/11/18 09:16 95 20 100 Room Air 21 07/11/18 09:10 98 24 98 Room Air 21 07/11/18 09:00 Nasal Cannula 2.0 07/11/18 08:50 105 183/113 07/11/18 08:00 97.3 103 18 185/113 (137) 98 07/11/18 08:00 105 07/11/18 07:42 88 18 Nasal Cannula 2.0 07/11/18 05:43 97.2 106 18 179/110 (133) 100 07/11/18 05:23 184/109 07/11/18 04:00 97.2 106 18 179/110 (133) 100 07/11/18 04:00 107 07/11/18 03:48 103 20 99 Nasal Cannula 28 07/11/18 03:39 101 24 97 Nasal Cannula 28 07/11/18 00:00 106 07/11/18 00:00 97.4 103 18 136/68 (90) 97 07/10/18 22:37 159/105 07/10/18 21:00 Nasal Cannula 2.0 07/10/18 20:00 104 07/10/18 20:00 97.7 108 20 174/110 (131) 96 07/10/18 19:09 84 18 Nasal Cannula 28 07/10/18 19:05 84 18 99 Nasal Cannula 28 07/10/18 18:54 80 22 98 Nasal Cannula 28 07/10/18 17:22 102 174/114 07/10/18 16:19 174/114 07/10/18 16:00 102 07/10/18 16:00 96.8 107 20 174/114 (134) 99 Intake and Output 07/10/18 07/11/18 19:00 07:00 Intake Total 1605 ml 945 ml Output Total 750 ml Balance 855 ml 945 ml Intake Oral 1230 ml IV Total 375 ml 945 ml Output Urine Total 750 ml # Voids 1 Laboratory Tests 07/10/18 16:54: Troponin I 0.078H 07/11/18 06:00: Urine Eosinophils None seen 07/11/18 09:20: White Blood Count 5.9, Red Blood Count 2.24L, Hemoglobin 7.3L, Hematocrit 22.7L , Mean Corpuscular Volume 102H, Mean Corpuscular Hemoglobin 32.4H, Mean Corpuscular Hemoglobin Concent 31.9L, Red Cell Distribution Width 12.3, Platelet Count 183, Mean Platelet Volume 7.3, Neutrophils (%) (Auto) , Lymphocytes (%) (Auto) , Monocytes (%) (Auto) , Eosinophils (%) (Auto) , Basophils (%) (Auto) , Differential Total Cells Counted 100, Neutrophils % ( Manual) 78H, Lymphocytes % (Manual) 8L, Monocytes % (Manual) 8, Eosinophils % ( Manual) 5H, Basophils % (Manual) 1, Band Neutrophils 0, Platelet Estimate Adequate, Platelet Morphology Normal, Red Blood Cell Morphology Normal, Sodium Level 137, Potassium Level 4.1, Chloride Level 104, Carbon Dioxide Level 19L, Anion Gap 14, Blood Urea Nitrogen 86H, Creatinine 8.4H, Estimat Glomerular Filtration Rate 8.0, Glucose Level 145H, Uric Acid 7.9H, Calcium Level 7.4L, Phosphorus Level 5.2H, Magnesium Level 1.7L, Total Bilirubin 0.2, Aspartate Amino Transf (AST/SGOT) 17, Alanine Aminotransferase (ALT/SGPT) 27, Alkaline Phosphatase 78, Pro-B-Type Natriuretic Peptide [id number], Total Protein 6.1L, Albumin 2.8L, Globulin 3.3, Albumin/Globulin Ratio 0.8L Height (Feet): 5 Height (Inches): 11.00 Weight (Pounds): 186 General Appearance: no apparent distress Cardiovascular: tachycardia Respiratory/Chest: decreased breath sounds Abdomen: distended Objective no change Richar Cm MD Jul 11, 2018 13:49
--- NOTE | 2018-07-11 14:21 | Cardiac Electrophysiology PN ---
Assessment/Plan Assessment/Plan 1. Non-ST elevation myocardial infarction, likely type 2 in the setting of active cocaine use and renal failure. Troponin levels are flat at 0.2, 0.2 and 0.2.Avoid beta-pablo in view of active cocaine use. Use aspirin and Lipitor to his medical regimen. EF 45% 2. Hypertension. On Norvasc 5 mg bid and Clonidine patch. Avoid beta- blockers. Avoid ARMAND inhibitor and angiotensin-receptor pablo. 3. End-stage renal disease, has not been started on hemodialysis. Cr 8.[address] Cm.Refusing HD! 4. Substance use with cocaine. Avoid beta-blockers. 5. Recent pneumonia. 6. Congestive heart failure. Echocardiogram EF 45% Subjective Subjective Diuresing well on IV Lasix. Still refusing HD Objective Last 24 Hour Vital Signs Date Time Temp Pulse Resp B/P (MAP) Pulse Ox O2 Delivery O2 Flow Rate FiO2 07/11/18 12:00 97.7 105 18 160/107 (124) 98 07/11/18 11:47 181/112 07/11/18 09:16 95 20 100 Room Air 21 07/11/18 09:10 98 24 98 Room Air 21 07/11/18 09:00 Nasal Cannula 2.0 07/11/18 08:50 105 183/113 07/11/18 08:00 97.3 103 18 185/113 (137) 98 07/11/18 08:00 105 07/11/18 07:42 88 18 Nasal Cannula 2.0 07/11/18 05:43 97.2 106 18 179/110 (133) 100 07/11/18 05:23 184/109 07/11/18 04:00 97.2 106 18 179/110 (133) 100 07/11/18 04:00 107 07/11/18 03:48 103 20 99 Nasal Cannula 28 07/11/18 03:39 101 24 97 Nasal Cannula 28 07/11/18 00:00 106 07/11/18 00:00 97.4 103 18 136/68 (90) 97 07/10/18 22:37 159/105 07/10/18 21:00 Nasal Cannula 2.0 07/10/18 20:00 104 07/10/18 20:00 97.7 108 20 174/110 (131) 96 07/10/18 19:09 84 18 Nasal Cannula 28 07/10/18 19:05 84 18 99 Nasal Cannula 28 07/10/18 18:54 80 22 98 Nasal Cannula 28 07/10/18 17:22 102 174/114 07/10/18 16:19 174/114 07/10/18 16:00 102 07/10/18 16:00 96.8 107 20 174/114 (134) 99 Intake and Output 07/10/18 07/11/18 19:00 07:00 Intake Total 1605 ml 945 ml Output Total 750 ml Balance 855 ml 945 ml Intake Oral 1230 ml IV Total 375 ml 945 ml Output Urine Total 750 ml # Voids 1 Laboratory Tests Test 07/10/18 16:54 07/11/18 06:00 07/11/18 09:20 Troponin I 0.078 ng/mL (0.000-0.056) Urine Eosinophils None seen (NONE SEEN) White Blood Count 5.9 K/UL (4.8-10.8) Red Blood Count 2.24 M/UL (4.70-6.10) L Hemoglobin 7.3 G/DL (14.2-18.0) L Hematocrit 22.7 % (42.0-52.0) L Mean Corpuscular Volume 102 FL (80-99) H Mean Corpuscular Hemoglobin 32.4 PG (27.0-31.0) H Mean Corpuscular Hemoglobin Concent 31.9 G/DL (32.0-36.0) L Red Cell Distribution Width 12.3 % (11.6-14.8) Platelet Count 183 K/UL (150-450) Mean Platelet Volume 7.3 FL (6.5-10.1) Neutrophils (%) (Auto) % (45.0-75.0) Lymphocytes (%) (Auto) % (20.0-45.0) Monocytes (%) (Auto) % (1.0-10.0) Eosinophils (%) (Auto) % (0.0-3.0) Basophils (%) (Auto) % (0.0-2.0) Differential Total Cells Counted 100 Neutrophils % (Manual) 78 % (45-75) H Lymphocytes % (Manual) 8 % (20-45) L Monocytes % (Manual) 8 % (1-10) Eosinophils % (Manual) 5 % (0-3) H Basophils % (Manual) 1 % (0-2) Band Neutrophils 0 % (0-8) Platelet Estimate Adequate Platelet Morphology Normal Red Blood Cell Morphology Normal Sodium Level 137 MMOL/L (136-145) Potassium Level 4.1 MMOL/L (3.5-5.1) Chloride Level 104 MMOL/L (98-107) Carbon Dioxide Level 19 MMOL/L (21-32) L Anion Gap 14 mmol/L (5-15) Blood Urea Nitrogen 86 mg/dL (7-18) H Creatinine 8.4 MG/DL (0.55-1.30) H Estimat Glomerular Filtration Rate 8.0 mL/min (>60) Glucose Level 145 MG/DL (74-106) H Uric Acid 7.9 MG/DL (2.6-7.2) H Calcium Level 7.4 MG/DL (8.5-10.1) L Phosphorus Level 5.2 MG/DL (2.5-4.9) H Magnesium Level 1.7 MG/DL (1.8-2.4) L Total Bilirubin 0.2 MG/DL (0.2-1.0) Aspartate Amino Transf (AST/SGOT) 17 U/L (15-37) Alanine Aminotransferase (ALT/SGPT) 27 U/L (12-78) Alkaline Phosphatase 78 U/L (46-116) C-Reactive Protein, Quantitative 1.8 mg/dL (0.00-0.90) H Pro-B-Type Natriuretic Peptide 91594 pg/mL (0-125) H Total Protein 6.1 G/DL (6.4-8.2) L Albumin 2.8 G/DL (3.4-5.0) L Globulin 3.3 g/dL Albumin/Globulin Ratio 0.8 (1.0-2.7) L Microbiology Date/Time Source Procedure Growth Status 07/08/18 22:00 Nose MRSA Culture - Final NO METHICILLIN RESISTANT STAPH AUREUS... Complete 07/08/18 22:00 Rectum - Final NO CARBAPENEM-RESISTANT ENTEROBACTERI... Complete 07/08/18 22:00 Rectum VRE Culture - Final NO VANCOMYCIN RESISTANT ENTEROCOCCUS ... Complete Objective HEAD AND NECK: No JVD. LUNGS: Decreased breath sounds. CARDIOVASCULAR: Regular S1 and S2 with no gallop or murmur. ABDOMEN: Soft. EXTREMITIES: 1 plus pitting edema. German Gray MD Jul 11, 2018 14:21
--- NOTE | 2018-07-11 14:30 | Consultation ---
Consult Note Consult Note HEMATOLOGY-ONCOLOGY CONSULTATION REFERRING PHYSICIAN: Edgard Webb REASON FOR CONSULT: Anemia DATE OF CONSULT: 07/11/2018 HISTORY OF PRESENT ILLNESS: The patient is a 58-year-old male with history of cocaine abuse, heart failure and renal insufficiency, recently discharged from [facility] with pneumonia and CHF. He was told that he needs dialysis, now presenting with shortness of breath and epistaxis in the setting of recent cocaine use. Upon arrival to the ER, he has been afebrile, but had sinus tachycardia and hypertensive urgency. He has been saturating well on room air. He has had elevated cardiac biomarkers and was started on Lovenox in the ER. His U-tox was positive for cocaine. Chest x-ray in the ER, per report, was consistent with heart failure, but is not available for review. Hematology service consutled for the evaluation of anemia. Current Hgb at 7.3. Anemia w/u has been ordered. PAST MEDICAL HISTORY: CHF, renal disease, cocaine use, hypertension. PAST SURGICAL HISTORY: He denies. ALLERGIES: No known drug allergies. MEDICATIONS: Prior to admission medications, none. SOCIAL HISTORY: Tobacco and cocaine use. No alcohol. FAMILY HISTORY: Noncontributory. REVIEW OF SYSTEMS: Negative other than history of present illness. PHYSICAL EXAMINATION: VITAL SIGNS: Have been reviewed GENERAL: He is a frail male, in no acute distress HEENT: Normocephalic and atraumatic. Oropharynx with moist mucous membranes. NECK: Supple without lymphadenopathy or JVD. CHEST: Clear with bibasilar rales. HEART: Regular rate and rhythm. ABDOMEN: Soft, nontender, and nondistended. EXTREMITIES: No cyanosis or clubbing. There is trace edema. LABS: White count 5.7, hemoglobin 8.7, and platelet count 237. INR 0.9. Sodium 136, potassium 2.9, chloride 99, bicarb 21, BUN 98, and creatinine 9.4. Glucose 142. Calcium 6.9. A1c 5.2. Troponin 0.197, 0.222, 0.243. Total cholesterol 144, LDL 51, HDL 89. TSH 1.5. Urine toxicology is positive for cocaine. Chest x-ray per report, no acute findings but pending. ASSESSMENT AND RECOMMENDATIONS # Anemia of chronic disease (or of iron deficiency) due to underlying chronic medical issues, multifactorial --> Anemia w/u has been ordered --> No evidence of hemolysis is noted, peripheral smear has been reviewed. --> Hgb goal >7. Transfuse prn. --> Epogen or iron at this time is not particularly indicated --> bone marrow biopsy is not indicated given the other more likely causes # Congestive heart failure with acute decompensated heart failure. --> In tele unit # Abnormal renal function, likely cardiorenal syndrome. --> Nephrology is following appreciate recs # History of cocaine abuse with current positive tox screen. # Hypertension with hypertensive urgency. # Acute coronary syndrome/non-ST elevation myocardial infarction. GREATLY APPRECIATE CONSULTATION. Date and time note entered does not reflect time and date patient was seen. Shane Mary MD Jul 11, 2018 14:29
[2018-07-11] MEDS: cloNIDine 0.2mg Tab ORAL SCH ×2 (14:33→22:33)
[2018-07-11] MEDS ORDERED: Iron Sucrose 200 MG in NS 110 ML IV ONE (16:00)
--- NOTE | 2018-07-11 19:59 | Pulmonology Progress Note ---
Assessment/Plan Assessment/Plan PROBLEM LIST: 1. Congestive heart failure with acute decompensated heart failure. 2. Abnormal renal function, likely cardiorenal syndrome. 3. History of cocaine abuse with current positive tox screen. 4. Anemia. 5. Hypertension with hypertensive urgency. 6. Acute coronary syndrome/non-ST elevation myocardial infarction. 7. pain back TREATMENT PLAN: -Telemetry -Diuresis as able -BP recs -cards recommendations reviewed -PRBC if less than 7 -Heparin held 2/2 bleeding -Cardiac diet -Needs OP cards F/U -IV PPI, F/U FOBT, heme eval, Subjective ROS Limited/Unobtainable: No Constitutional: Reports: no symptoms HEENT: Repors: visual change Respiratory: Reports: shortness of breath Cardiovascular: Reports: no symptoms Gastrointestinal/Abdominal: Reports: no symptoms Genitourinary: Reports: no symptoms Allergies: Coded Allergies: No Known Allergies (Unverified , 07/08/18) Subjective still wtih sob no cp nv or bleeding no fever not getting oob no nv noted complains of pain and meds not working Objective Last 24 Hour Vital Signs Date Time Temp Pulse Resp B/P (MAP) Pulse Ox O2 Delivery O2 Flow Rate FiO2 07/11/18 17:09 109 159/111 07/11/18 16:00 111 07/11/18 16:00 97.5 109 20 159/111 (127) 94 07/11/18 15:19 92 22 100 Room Air 21 07/11/18 15:10 88 22 97 Room Air 21 07/11/18 14:33 160/107 07/11/18 14:25 160/107 07/11/18 12:00 97.7 105 18 160/107 (124) 98 07/11/18 12:00 108 07/11/18 11:47 181/112 07/11/18 09:16 95 20 100 Room Air 21 07/11/18 09:10 98 24 98 Room Air 21 07/11/18 09:00 Nasal Cannula 2.0 07/11/18 08:50 105 183/113 07/11/18 08:00 97.3 103 18 185/113 (137) 98 07/11/18 08:00 105 07/11/18 07:42 88 18 Nasal Cannula 2.0 28 07/11/18 05:43 97.2 106 18 179/110 (133) 100 07/11/18 05:23 184/109 07/11/18 04:00 97.2 106 18 179/110 (133) 100 07/11/18 04:00 107 07/11/18 03:48 103 20 99 Nasal Cannula 28 07/11/18 03:39 101 24 97 Nasal Cannula 28 07/11/18 00:00 106 07/11/18 00:00 97.4 103 18 136/68 (90) 97 07/10/18 22:37 159/105 07/10/18 21:00 Nasal Cannula 2.0 07/10/18 20:00 104 07/10/18 20:00 97.7 108 20 174/110 (131) 96 Intake and Output 07/10/18 07/11/18 19:00 07:00 Intake Total 1605 ml 945 ml Output Total 750 ml Balance 855 ml 945 ml Intake Oral 1230 ml IV Total 375 ml 945 ml Output Urine Total 750 ml # Voids 1 General Appearance: cachetic HEENT: other - right eye occluded Respiratory/Chest: crackles/rales Cardiovascular: normal rate, regular rhythm Abdomen: soft, non tender, no organomegaly Neurologic/Psychiatric: alert, responsive Microbiology Date/Time Source Procedure Growth Status 07/08/18 22:00 Nose MRSA Culture - Final NO METHICILLIN RESISTANT STAPH AUREUS... Complete 07/08/18 22:00 Rectum - Final NO CARBAPENEM-RESISTANT ENTEROBACTERI... Complete 07/08/18 22:00 Rectum VRE Culture - Final NO VANCOMYCIN RESISTANT ENTEROCOCCUS ... Complete Laboratory Tests 07/11/18 06:00: Urine Eosinophils None seen 07/11/18 09:20: White Blood Count 5.9, Red Blood Count 2.24L, Hemoglobin 7.3L, Hematocrit 22.7L , Mean Corpuscular Volume 102H, Mean Corpuscular Hemoglobin 32.4H, Mean Corpuscular Hemoglobin Concent 31.9L, Red Cell Distribution Width 12.3, Platelet Count 183, Mean Platelet Volume 7.3, Neutrophils (%) (Auto) , Lymphocytes (%) (Auto) , Monocytes (%) (Auto) , Eosinophils (%) (Auto) , Basophils (%) (Auto) , Differential Total Cells Counted 100, Neutrophils % ( Manual) 78H, Lymphocytes % (Manual) 8L, Monocytes % (Manual) 8, Eosinophils % ( Manual) 5H, Basophils % (Manual) 1, Band Neutrophils 0, Platelet Estimate Adequate, Platelet Morphology Normal, Red Blood Cell Morphology Normal, Sodium Level 137, Potassium Level 4.1, Chloride Level 104, Carbon Dioxide Level 19L, Anion Gap 14, Blood Urea Nitrogen 86H, Creatinine 8.4H, Estimat Glomerular Filtration Rate 8.0, Glucose Level 145H, Uric Acid 7.9H, Calcium Level 7.4L, Phosphorus Level 5.2H, Magnesium Level 1.7L, Total Bilirubin 0.2, Aspartate Amino Transf (AST/SGOT) 17, Alanine Aminotransferase (ALT/SGPT) 27, Alkaline Phosphatase 78, C-Reactive Protein, Quantitative 1.8H, Pro-B-Type Natriuretic Peptide 76226V, Total Protein 6.1L, Albumin 2.8L, Globulin 3.3, Albumin/ Globulin Ratio 0.8L Current Medications Medications (Trade) Dose Ordered Sig/Harish Route PRN Reason Start Time Stop Time Status Last Admin Dose Admin Acetaminophen (Tylenol) 650 mg Q4H PRN ORAL Mild Pain/Temp > 100.5 07/08/18 23:15 08/07/18 23:14 07/10/18 00:43 Albuterol/ Ipratropium (Albuterol/ Ipratropium) 3 ml Q4H PRN HHN Shortness of Breath 07/09/18 12:30 07/14/18 12:29 07/11/18 15:19 Allopurinol (Zyloprim) 100 mg DAILY ORAL 07/12/18 09:00 08/11/18 08:59 Amlodipine Besylate (Norvasc) 5 mg BID ORAL 07/09/18 18:00 08/09/18 08:59 07/11/18 17:09 Aspirin (ASA) 81 mg DAILY ORAL 07/09/18 09:00 08/08/18 08:59 07/10/18 10:33 Clonidine HCl (Catapres tab) 0.2 mg EVERY 8 HOURS ORAL 07/11/18 14:00 08/09/18 13:59 07/11/18 14:33 Dextrose (Dextrose 50%) 25 ml Q30M PRN IV Hypoglycemia 07/08/18 23:15 08/07/18 23:14 Dextrose (Dextrose 50%) 50 ml Q30M PRN IV Hypoglycemia 07/08/18 23:15 08/07/18 23:14 Diphenhydramine HCl (Benadryl) 25 mg Q6H PRN ORAL Itching/Pruritis 07/08/18 23:15 08/07/18 23:14 07/10/18 22:37 Docusate Sodium (Colace) 100 mg THREE TIMES A DAY ORAL 07/09/18 18:00 08/08/18 17:59 07/10/18 17:22 Epoetin Juan Pablo (Procrit (for non ESRD use)) 10,000 units FRI-FRI-FRI SUBQ 07/13/18 21:00 08/12/18 20:59 Isosorbide Mononitrate (Imdur) 30 mg DAILY ORAL 07/12/18 09:00 08/11/18 08:59 Minoxidil (Loniten) 2.5 mg Q4H PRN ORAL bp over 165 syst 07/11/18 13:45 08/10/18 13:44 Pantoprazole (Protonix) 40 mg EVERY 12 HOURS ORAL 07/11/18 21:00 08/10/18 20:59 Sevelamer Carbonate (Renvela) 800 mg THREE TIMES A DAY ORAL 07/09/18 18:00 08/08/18 17:59 07/11/18 17:09 Sodium Chloride 1,000 ml @ 75 mls/hr [id number] IV 07/09/18 10:45 08/08/18 10:44 07/11/18 16:25 Tamsulosin HCl (Flomax) 0.4 mg BID ORAL 07/10/18 12:53 08/09/18 12:52 07/11/18 17:09 Diane Fink DO Jul 11, 2018 19:59
[2018-07-11] MEDS: Norco 5mg/325mg tab ORAL PRN (22:31)
[2018-07-12 00:47] VITALS: BP 163/115
[2018-07-12 04:00] VITALS: BP 155/99
[2018-07-12] MEDS: cloNIDine 0.2mg Tab ORAL SCH ×3 (06:17→21:31)
[2018-07-12] MEDS: Norco 5mg/325mg tab ORAL PRN ×2 (06:37→17:29)
[2018-07-12] MEDS: Albuterol/Ipratropium 3ml neb HHN PRN ×2 (06:46→17:42)
[2018-07-12 07:48] LABS: HEMATOCRIT 24.3 % (42.0-52.0); HEMOGLOBIN 7.8 G/DL (14.2-18.0); MEAN CORPUSCULAR VOLUME 101 FL (80-99); PLATELET COUNT 208 K/UL (150-450); RED BLOOD COUNT 2.41 M/UL (4.70-6.10); RED CELL DISTRIBUTION WIDTH 13.2 % (11.6-14.8); WHITE BLOOD COUNT 8.9 K/UL (4.8-10.8)
[2018-07-12 08:00] VITALS: BP 159/111
[2018-07-12 08:40] LABS: ALANINE AMINOTRANSFERASE 36 U/L (12-78); ALBUMIN 3.2 G/DL (3.4-5.0); ALBUMIN/GLOBULIN RATIO 0.8 (1.0-2.7); ALKALINE PHOSPHATASE 85 U/L (46-116); ANION GAP 14 mmol/L (5-15); ASPARTATE AMINO TRANSFERASE 20 U/L (15-37); BILIRUBIN,TOTAL 0.2 MG/DL (0.2-1.0); BLOOD UREA NITROGEN 91 mg/dL (7-18); CALCIUM 8.5 MG/DL (8.5-10.1); CARBON DIOXIDE 17 MMOL/L (21-32); CHLORIDE 105 MMOL/L (98-107); CREATINE KINASE 303 U/L (26-308); CREATININE 8.1 MG/DL (0.55-1.30); GAMMA GLUTAMYL TRANSPEPTIDASE 104 U/L (5-85); PHOSPHORUS 5.2 MG/DL (2.5-4.9); POTASSIUM 4.4 MMOL/L (3.5-5.1); SODIUM 136 MMOL/L (136-145)
[2018-07-12] MEDS: Docusate 100mg cap ORAL SCH ×3 (09:00→17:50)
[2018-07-12] MEDS: Tamsulosin 0.4mg cap ORAL SCH ×2 (09:24→17:49)
[2018-07-12] MEDS: Imdur 30mg tab ORAL SCH (09:24)
[2018-07-12] MEDS: Allopurinol 100mg Tab ORAL SCH (09:25)
[2018-07-12] MEDS: Aspirin Baby 81mg ORAL SCH (09:27)
--- NOTE | 2018-07-12 11:03 | Nephrology Progress Note ---
Assessment/Plan Problem List: (1) ARF (acute renal failure) (2) Cocaine abuse (3) Acute exacerbation of CHF (congestive heart failure) (4) Hypertensive cardiomegaly with heart failure Assessment Acute on Chronic renal failure Anemia Elevated troponin Hypertensive renal and heart disease Cocaine abuse Cardiomyopathy Plan Simpson IV fluid slow BP control- adjust BP meds add hydralazine 2D Echo 55% ej fx BRIDGETT kidneys * Mild fullness of the bilateral renal collecting systems without radiographically appreciable stone and observed bilateral ureteral jets. Findings may be related to mild bladder distention. Consider repeat exam after bladder decompression. monitor renal parameters Avoid nephrotoxics renal diet flomax Subjective ROS Limited/Unobtainable: No Constitutional: Reports: malaise Objective Objective Last 24 Hour Vital Signs Date Time Temp Pulse Resp B/P (MAP) Pulse Ox O2 Delivery O2 Flow Rate FiO2 07/12/18 09:24 159/117 07/12/18 09:24 107 159/117 07/12/18 09:00 Nasal Cannula 2.0 07/12/18 08:00 97.7 107 20 159/111 (127) 95 07/12/18 07:10 97.9 07/12/18 06:46 114 20 91 Nasal Cannula 2.0 28 07/12/18 06:45 114 20 Nasal Cannula 2.0 28 07/12/18 06:17 184/119 07/12/18 04:00 109 07/12/18 04:00 97.9 119 18 155/99 (117) 96 07/12/18 00:47 97.4 115 20 163/115 (131) 95 07/12/18 00:00 118 07/11/18 22:54 113 22 98 Room Air 21 07/11/18 22:35 113 24 Nasal Cannula 2.0 28 07/11/18 22:35 113 22 95 Room Air 21 07/11/18 22:33 193/121 07/11/18 21:00 Nasal Cannula 2.0 07/11/18 20:00 98.0 109 19 177/110 (132) 95 07/11/18 20:00 110 07/11/18 17:09 109 159/111 07/11/18 16:00 111 07/11/18 16:00 97.5 109 20 159/111 (127) 94 07/11/18 15:19 92 22 100 Room Air 21 07/11/18 15:10 88 22 97 Room Air 21 07/11/18 14:33 160/107 07/11/18 14:25 160/107 07/11/18 12:00 97.7 105 18 160/107 (124) 98 07/11/18 12:00 108 07/11/18 11:47 181/112 Intake and Output 07/11/18 07/12/18 19:00 07:00 Intake Total 800 ml 1035 ml Output Total 3400 ml Balance -2600 ml 1035 ml Intake Oral 800 ml 360 ml IV Total 675 ml Output Urine Total 3400 ml # Voids 12 5 Laboratory Tests 07/12/18 06:50: White Blood Count 8.9#, Red Blood Count 2.41L, Hemoglobin 7.8L, Hematocrit 24.3L , Mean Corpuscular Volume 101H, Mean Corpuscular Hemoglobin 32.5H, Mean Corpuscular Hemoglobin Concent 32.2, Red Cell Distribution Width 13.2, Platelet Count 208, Mean Platelet Volume 6.9, Neutrophils (%) (Auto) , Lymphocytes (%) ( Auto) , Monocytes (%) (Auto) , Eosinophils (%) (Auto) , Basophils (%) (Auto) , Differential Total Cells Counted 100, Neutrophils % (Manual) 89H, Lymphocytes % (Manual) 5L, Monocytes % (Manual) 4, Eosinophils % (Manual) 2, Basophils % ( Manual) 0, Band Neutrophils 0, Platelet Estimate DecreasedL, Platelet Morphology Normal, Hypochromasia 1+, Anisocytosis 1+, Macrocytosis 1+, Sodium Level 136, Potassium Level 4.4, Chloride Level 105, Carbon Dioxide Level 17L, Anion Gap 14, Blood Urea Nitrogen 91H, Creatinine 8.1H, Estimat Glomerular Filtration Rate 8.4, Glucose Level 109H, Uric Acid 7.1, Calcium Level 8.5, Phosphorus Level 5.2H, Magnesium Level 2.1, Total Bilirubin 0.2, Gamma Glutamyl Transpeptidase 104H, Aspartate Amino Transf (AST/SGOT) 20, Alanine Aminotransferase (ALT/SGPT) 36, Alkaline Phosphatase 85, Total Creatine Kinase 303, Troponin I 0.060H, Pro-B-Type Natriuretic Peptide [id number], Total Protein 7.1 , Albumin 3.2L, Globulin 3.9, Albumin/Globulin Ratio 0.8L 07/12/18 08:00: Urine Eosinophils None seen Height (Feet): 5 Height (Inches): 11.00 Weight (Pounds): 194 General Appearance: no apparent distress Cardiovascular: tachycardia Respiratory/Chest: decreased breath sounds Abdomen: soft, distended Objective no change Richar Cm MD Jul 12, 2018 11:03
[2018-07-12 12:00] VITALS: BP 156/109
--- NOTE | 2018-07-12 13:00 | General Progress Note ---
Assessment/Plan Assessment/Plan ASSESSMENT AND RECOMMENDATIONS # Anemia of chronic disease, multifactorial, grace on ckd --> Anemia w/u has been reviewed --> No evidence of hemolysis is noted, peripheral smear has been reviewed. --> Hgb goal >7. Transfuse prn. --> continue on epo # Congestive heart failure with acute decompensated heart failure. --> per cards management --> In tele unit # Abnormal renal function, likely cardiorenal syndrome. --> Nephrology is following appreciate recs # History of cocaine abuse with current positive tox screen. # Hypertension with hypertensive urgency. # Acute coronary syndrome/non-ST elevation myocardial infarction. GREATLY APPRECIATE CONSULTATION. Date and time note entered does not reflect time and date patient was seen. Subjective Constitutional: Denies: no symptoms, chills, diaphoresis, fever, malaise, weakness, other HEENT: Denies: no symptoms, eye pain, blurred vision, tearing, double vision, ear pain, ear discharge, nose pain, nose congestion, throat pain, throat swelling, mouth pain, mouth swelling, other Cardiovascular: Denies: no symptoms, chest pain, edema, irregular heart rate, lightheadedness, palpitations, syncope, other Respiratory: Denies: no symptoms, cough, orthopnea, shortness of breath, SOB with excertion, SOB at rest, sputum, stridor, wheezing, other Genitourinary: Denies: no symptoms, burning, discharge, frequency, flank pain, hematuria, incontinence, pain, urgency, other Neurologic/Psychiatric: Denies: no symptoms, anxiety, depressed, emotional problems, headache, numbness, paresthesia, pre-existing deficit, seizure, tingling, tremors, weakness, other Endocrine: Denies: no symptoms, excessive sweating, flushing, intolerance to cold, intolerance to heat, increased hunger, increased thirst, increased urine, unexplained weight gain, unexplained weight loss, other Hematologic/Lymphatic: Denies: no symptoms, anemia, easy bleeding, easy bruising, other Allergies: Coded Allergies: No Known Allergies (Unverified , 07/08/18) Subjective 07/12: no events, cr trending, h/h stable, on epo Objective Last 24 Hour Vital Signs Date Time Temp Pulse Resp B/P (MAP) Pulse Ox O2 Delivery O2 Flow Rate FiO2 07/12/18 09:24 159/117 07/12/18 09:24 107 159/117 07/12/18 09:00 Nasal Cannula 2.0 07/12/18 08:00 114 07/12/18 08:00 97.7 107 20 159/111 (127) 95 07/12/18 07:10 97.9 07/12/18 06:46 114 20 91 Nasal Cannula 2.0 28 07/12/18 06:45 114 20 Nasal Cannula 2.0 28 07/12/18 06:17 184/119 07/12/18 04:00 109 07/12/18 04:00 97.9 119 18 155/99 (117) 96 07/12/18 00:47 97.4 115 20 163/115 (131) 95 07/12/18 00:00 118 07/11/18 22:54 113 22 98 Room Air 21 07/11/18 22:35 113 24 Nasal Cannula 2.0 28 07/11/18 22:35 113 22 95 Room Air 21 07/11/18 22:33 193/121 07/11/18 21:00 Nasal Cannula 2.0 07/11/18 20:00 98.0 109 19 177/110 (132) 95 07/11/18 20:00 110 07/11/18 17:09 109 159/111 07/11/18 16:00 111 07/11/18 16:00 97.5 109 20 159/111 (127) 94 07/11/18 15:19 92 22 100 Room Air 07/11/18 15:10 88 22 97 Room Air 21 07/11/18 14:33 160/107 07/11/18 14:25 160/107 Intake and Output 07/11/18 07/12/18 19:00 07:00 Intake Total 800 ml 1035 ml Output Total 3400 ml Balance -2600 ml 1035 ml Intake Oral 800 ml 360 ml IV Total 675 ml Output Urine Total 3400 ml # Voids 12 5 Laboratory Tests 07/12/18 06:50: White Blood Count 8.9#, Red Blood Count 2.41L, Hemoglobin 7.8L, Hematocrit 24.3L , Mean Corpuscular Volume 101H, Mean Corpuscular Hemoglobin 32.5H, Mean Corpuscular Hemoglobin Concent 32.2, Red Cell Distribution Width 13.2, Platelet Count 208, Mean Platelet Volume 6.9, Neutrophils (%) (Auto) , Lymphocytes (%) ( Auto) , Monocytes (%) (Auto) , Eosinophils (%) (Auto) , Basophils (%) (Auto) , Differential Total Cells Counted 100, Neutrophils % (Manual) 89H, Lymphocytes % (Manual) 5L, Monocytes % (Manual) 4, Eosinophils % (Manual) 2, Basophils % ( Manual) 0, Band Neutrophils 0, Platelet Estimate DecreasedL, Platelet Morphology Normal, Hypochromasia 1+, Anisocytosis 1+, Macrocytosis 1+, Sodium Level 136, Potassium Level 4.4, Chloride Level 105, Carbon Dioxide Level 17L, Anion Gap 14, Blood Urea Nitrogen 91H, Creatinine 8.1H, Estimat Glomerular Filtration Rate 8.4, Glucose Level 109H, Uric Acid 7.1, Calcium Level 8.5, Phosphorus Level 5.2H, Magnesium Level 2.1, Total Bilirubin 0.2, Gamma Glutamyl Transpeptidase 104H, Aspartate Amino Transf (AST/SGOT) 20, Alanine Aminotransferase (ALT/SGPT) 36, Alkaline Phosphatase 85, Total Creatine Kinase 303, Troponin I 0.060H, C-Reactive Protein, Quantitative [Pending], Pro-B-Type Natriuretic Peptide 10136Q, Total Protein 7.1, Albumin 3.2L, Globulin 3.9, Albumin/Globulin Ratio 0.8L 07/12/18 08:00: Urine Eosinophils None seen Height (Feet): 5 Height (Inches): 11.00 Weight (Pounds): 194 Neck: normal alignment Cardiovascular: regular rhythm Abdomen: no organomegaly Extremities: normal range of motion Neurologic: alert Skin: warm/dry Shane Mary MD Jul 12, 2018 12:59
[2018-07-12] MEDS: HydrALAZINE 25mg tab ORAL SCH ×2 (13:38→21:30)
[2018-07-12] MEDS: Sodium Citrate 30ml ORAL SCH ×3 (13:39→23:18)
[2018-07-12 16:00] VITALS: BP 159/109
--- NOTE | 2018-07-12 18:32 | Pulmonology Progress Note ---
Assessment/Plan Assessment/Plan PROBLEM LIST: 1. Congestive heart failure with acute decompensated heart failure. 2. Abnormal renal function, likely cardiorenal syndrome. Cr 8.9 refusing HD 3. History of cocaine abuse with current positive tox screen. 4. Anemia. 5. Hypertension with hypertensive urgency. 6. Acute coronary syndrome/non-ST elevation myocardial infarction. 7. pain back TREATMENT PLAN: -Telemetry -Diuresis as able -BP recs -cards recommendations reviewed -FU wtih renal recs declining HD -PRBC if less than 7 -Heparin held 2/2 bleeding -Cardiac diet -Needs OP cards F/U - PPI Subjective Constitutional: Reports: no symptoms HEENT: Repors: no symptoms Cardiovascular: Reports: no symptoms Gastrointestinal/Abdominal: Reports: no symptoms Genitourinary: Reports: no symptoms Neurologic: Reports: no symptoms Allergies: Coded Allergies: No Known Allergies (Unverified , 07/08/18) Subjective states shortness of breath is associated with anxiety as well no cp nv or bleeding no fever not getting oob no nv noted pain better controlled today tolerating po Objective Last 24 Hour Vital Signs Date Time Temp Pulse Resp B/P (MAP) Pulse Ox O2 Delivery O2 Flow Rate FiO2 07/12/18 17:42 111 22 94 Nasal Cannula 2.0 28 07/12/18 17:29 110 159/109 07/12/18 16:00 97.0 111 20 159/109 (126) 95 07/12/18 16:00 109 07/12/18 13:38 156/109 07/12/18 13:38 156/109 07/12/18 12:00 105 07/12/18 12:00 97.2 105 20 156/109 (125) 95 07/12/18 09:24 159/117 07/12/18 09:24 107 159/117 07/12/18 09:00 Nasal Cannula 2.0 07/12/18 08:00 114 07/12/18 08:00 97.7 107 20 159/111 (127) 95 07/12/18 07:10 97.9 07/12/18 06:46 114 20 91 Nasal Cannula 2.0 28 07/12/18 06:45 114 20 Nasal Cannula 2.0 28 07/12/18 06:17 184/119 07/12/18 04:00 109 07/12/18 04:00 97.9 119 18 155/99 (117) 96 07/12/18 00:47 97.4 115 20 163/115 (131) 95 07/12/18 00:00 118 07/11/18 22:54 113 22 98 Room Air 21 07/11/18 22:35 113 24 Nasal Cannula 2.0 28 07/11/18 22:35 113 22 95 Room Air 21 07/11/18 22:33 193/121 07/11/18 21:00 Nasal Cannula 2.0 07/11/18 20:00 98.0 109 19 177/110 (132) 95 07/11/18 20:00 110 Intake and Output 07/11/18 07/12/18 18:59 06:59 Intake Total 875 ml 1035 ml Output Total 3400 ml Balance -2525 ml 1035 ml Intake Oral 800 ml 360 ml IV Total 75 ml 675 ml Output Urine Total 3400 ml # Voids 12 5 General Appearance: WD/WN Respiratory/Chest: rhonchi Cardiovascular: regular rhythm, murmur systolic, edema Abdomen: soft, non tender, no organomegaly Neurologic/Psychiatric: abnormal gait, oriented x 3, responsive Laboratory Tests 07/12/18 06:50: White Blood Count 8.9#, Red Blood Count 2.41L, Hemoglobin 7.8L, Hematocrit 24.3L , Mean Corpuscular Volume 101H, Mean Corpuscular Hemoglobin 32.5H, Mean Corpuscular Hemoglobin Concent 32.2, Red Cell Distribution Width 13.2, Platelet Count 208, Mean Platelet Volume 6.9, Neutrophils (%) (Auto) , Lymphocytes (%) ( Auto) , Monocytes (%) (Auto) , Eosinophils (%) (Auto) , Basophils (%) (Auto) , Differential Total Cells Counted 100, Neutrophils % (Manual) 89H, Lymphocytes % (Manual) 5L, Monocytes % (Manual) 4, Eosinophils % (Manual) 2, Basophils % ( Manual) 0, Band Neutrophils 0, Platelet Estimate DecreasedL, Platelet Morphology Normal, Hypochromasia 1+, Anisocytosis 1+, Macrocytosis 1+, Sodium Level 136, Potassium Level 4.4, Chloride Level 105, Carbon Dioxide Level 17L, Anion Gap 14, Blood Urea Nitrogen 91H, Creatinine 8.1H, Estimat Glomerular Filtration Rate 8.4, Glucose Level 109H, Uric Acid 7.1, Calcium Level 8.5, Phosphorus Level 5.2H, Magnesium Level 2.1, Total Bilirubin 0.2, Gamma Glutamyl Transpeptidase 104H, Aspartate Amino Transf (AST/SGOT) 20, Alanine Aminotransferase (ALT/SGPT) 36, Alkaline Phosphatase 85, Total Creatine Kinase 303, Troponin I 0.060H, C-Reactive Protein, Quantitative 4.2H, Pro-B-Type Natriuretic Peptide [id number], Total Protein 7.1, Albumin 3.2L, Globulin 3.9, Albumin/Globulin Ratio 0.8L 07/12/18 08:00: Urine Eosinophils None seen Current Medications Medications (Trade) Dose Ordered Sig/Harish Route PRN Reason Start Time Stop Time Status Last Admin Dose Admin Acetaminophen (Tylenol) 650 mg Q4H PRN ORAL Mild Pain/Temp > 100.5 07/08/18 23:15 08/07/18 23:14 07/11/18 20:02 Acetaminophen/ Hydrocodone Bitart ([place] 5/325) 1 tab Q4H PRN ORAL Moderate Pain (Pain Scale 4-6) 07/11/18 22:15 07/18/18 22:14 07/12/18 17:29 Albuterol/ Ipratropium (Albuterol/ Ipratropium) 3 ml Q4H PRN HHN Shortness of Breath 07/09/18 12:30 07/14/18 12:29 07/12/18 17:42 Allopurinol (Zyloprim) 100 mg DAILY ORAL 07/12/18 09:00 08/11/18 08:59 07/12/18 09:25 Amlodipine Besylate (Norvasc) 5 mg BID ORAL 07/09/18 18:00 08/09/18 08:59 07/12/18 17:29 Aspirin (ASA) 81 mg DAILY ORAL 07/09/18 09:00 08/08/18 08:59 07/12/18 09:27 Clonidine HCl (Catapres tab) 0.2 mg EVERY 8 HOURS ORAL 07/11/18 14:00 08/09/18 13:59 07/12/18 13:38 Dextrose (Dextrose 50%) 25 ml Q30M PRN IV Hypoglycemia 07/08/18 23:15 08/07/18 23:14 Dextrose (Dextrose 50%) 50 ml Q30M PRN IV Hypoglycemia 07/08/18 23:15 08/07/18 23:14 Diphenhydramine HCl (Benadryl) 25 mg Q6H PRN ORAL Itching/Pruritis 07/08/18 23:15 08/07/18 23:14 07/11/18 21:04 Docusate Sodium (Colace) 100 mg THREE TIMES A DAY ORAL 07/09/18 18:00 08/08/18 17:59 07/10/18 17:22 Epoetin Juan Pablo (Procrit (for non ESRD use)) 10,000 units FRI- SUBQ 07/13/18 21:00 08/12/18 20:59 Hydralazine HCl (Apresoline) 25 mg Q8HR ORAL 07/12/18 14:00 08/11/18 13:59 07/12/18 13:38 Isosorbide Mononitrate (Imdur) 30 mg DAILY ORAL 07/12/18 09:00 08/11/18 08:59 07/12/18 09:24 Minoxidil (Loniten) 2.5 mg Q4H PRN ORAL bp over 165 syst 07/11/18 13:45 08/10/18 13:44 Pantoprazole (Protonix) 40 mg EVERY 12 HOURS ORAL 07/11/18 21:00 08/10/18 20:59 07/12/18 09:23 Sevelamer Carbonate (Renvela) 800 mg THREE TIMES A DAY ORAL 07/09/18 18:00 08/08/18 17:59 07/12/18 17:27 Sodium Chloride 1,000 ml @ 75 mls/hr [id number] IV 07/09/18 10:45 08/08/18 10:44 07/12/18 05:21 Sodium Citrate (Bicitra) 30 ml EVERY 6 HOURS ORAL 07/12/18 12:00 08/11/18 11:59 07/12/18 17:27 Tamsulosin HCl (Flomax) 0.4 mg BID ORAL 07/10/18 12:53 08/09/18 12:52 07/12/18 17:49 Diane Fink DO Jul 12, 2018 18:32
[2018-07-12 20:00] VITALS: BP 152/100
[2018-07-13] VITALS (7 sets, daily range): BP systolic 137–165; BP diastolic 92–105
[2018-07-13] MEDS: Albuterol/Ipratropium 3ml neb HHN PRN ×4 (02:23→20:45)
[2018-07-13 05:42] LABS: HEMATOCRIT 23.4 % (42.0-52.0); HEMOGLOBIN 7.5 G/DL (14.2-18.0); MEAN CORPUSCULAR VOLUME 101 FL (80-99); PLATELET COUNT 184 K/UL (150-450); RED BLOOD COUNT 2.31 M/UL (4.70-6.10); RED CELL DISTRIBUTION WIDTH 13.2 % (11.6-14.8); WHITE BLOOD COUNT 6.1 K/UL (4.8-10.8)
[2018-07-13 06:10] LABS: ALANINE AMINOTRANSFERASE 27 U/L (12-78); ALBUMIN 2.9 G/DL (3.4-5.0); ALBUMIN/GLOBULIN RATIO 0.8 (1.0-2.7); ALKALINE PHOSPHATASE 79 U/L (46-116); ANION GAP 15 mmol/L (5-15); ASPARTATE AMINO TRANSFERASE 15 U/L (15-37); BILIRUBIN,TOTAL 0.3 MG/DL (0.2-1.0); BLOOD UREA NITROGEN 83 mg/dL (7-18); CALCIUM 8.4 MG/DL (8.5-10.1); CARBON DIOXIDE 18 MMOL/L (21-32); CHLORIDE 105 MMOL/L (98-107); CREATININE 7.9 MG/DL (0.55-1.30); PHOSPHORUS 5.8 MG/DL (2.5-4.9); POTASSIUM 4.8 MMOL/L (3.5-5.1); SODIUM 138 MMOL/L (136-145)
[2018-07-13] MEDS: Sodium Citrate 30ml ORAL SCH ×3 (06:33→17:48)
[2018-07-13] MEDS: HydrALAZINE 25mg tab ORAL SCH ×3 (06:33→20:50)
[2018-07-13] MEDS: cloNIDine 0.2mg Tab ORAL SCH ×3 (06:33→22:08)
[2018-07-13] MEDS: Norco 5mg/325mg tab ORAL PRN ×2 (06:37→20:55)
[2018-07-13] MEDS: Docusate 100mg cap ORAL SCH ×3 (09:00→17:43)
[2018-07-13] MEDS: Tamsulosin 0.4mg cap ORAL SCH ×2 (09:29→17:47)
[2018-07-13] MEDS: Aspirin Baby 81mg ORAL SCH (09:29)
[2018-07-13] MEDS: Imdur 30mg tab ORAL SCH (09:33)
[2018-07-13] MEDS: Allopurinol 100mg Tab ORAL SCH (09:33)
--- NOTE | 2018-07-13 10:16 | Cardiac Electrophysiology PN ---
Assessment/Plan Assessment/Plan 1. Non-ST elevation myocardial infarction, likely type 2 in the setting of active cocaine use and renal failure. Troponin levels are flat at 0.2, 0.2 and 0.2. Avoid beta-pablo in view of active cocaine use. Use aspirin and Lipitor to his medical regimen. EF 45% 2. Hypertension. On Norvasc 5 mg bid, Hydralazine,Imdur and Clonidine patch. Avoid beta-blockers. Off ARMAND inhibitor and angiotensin-receptor pablo. 3. End-stage renal disease, has not been started on hemodialysis. Cr 8.[address] Cm.Refusing HD! 4. Substance use with cocaine. Avoid beta-blockers. 5. Recent pneumonia. 6. Congestive heart failure. Echocardiogram EF 45% 7. Severe anemia getting PRBC today DW RN Subjective Subjective Diuresing on IV Lasix. Still refusing HD. No CP or SOB Objective Last 24 Hour Vital Signs Date Time Temp Pulse Resp B/P (MAP) Pulse Ox O2 Delivery O2 Flow Rate FiO2 07/13/18 09:59 Nasal Cannula 2.0 07/13/18 09:33 143/95 07/13/18 09:32 110 158/111 07/13/18 09:00 110 24 Nasal Cannula 2.0 28 07/13/18 09:00 110 24 96 Nasal Cannula 2.0 28 07/13/18 08:00 98.2 110 19 152/100 (117) 96 07/13/18 07:07 97.6 07/13/18 06:33 143/95 07/13/18 06:33 143/95 07/13/18 04:00 107 07/13/18 04:00 97.6 110 19 143/95 (111) 96 07/13/18 02:32 105 20 100 Nasal Cannula 28 07/13/18 02:23 109 22 94 Nasal Cannula 2.0 28 07/13/18 00:00 95 07/13/18 00:00 98.3 107 18 137/96 (110) 96 07/12/18 21:31 152/100 07/12/18 21:30 152/100 07/12/18 21:00 Nasal Cannula 2.0 07/12/18 20:00 97.7 110 19 152/100 (117) 95 07/12/18 19:30 109 20 Nasal Cannula 2.0 28 07/12/18 17:42 111 22 94 Nasal Cannula 2.0 28 07/12/18 17:29 110 159/109 07/12/18 16:00 97.0 111 20 159/109 (126) 95 07/12/18 16:00 109 07/12/18 13:38 156/109 07/12/18 13:38 156/109 07/12/18 12:00 105 07/12/18 12:00 97.2 105 20 156/109 (125) 95 Intake and Output 07/12/18 07/13/18 18:59 06:59 Intake Total 600 ml Output Total 1300 ml Balance -700 ml Intake Oral 600 ml Output Urine Total 1300 ml Laboratory Tests Test 07/13/18 04:00 White Blood Count 6.1 K/UL (4.8-10.8) Red Blood Count 2.31 M/UL (4.70-6.10) L Hemoglobin 7.5 G/DL (14.2-18.0) L Hematocrit 23.4 % (42.0-52.0) L Mean Corpuscular Volume 101 FL (80-99) H Mean Corpuscular Hemoglobin 32.4 PG (27.0-31.0) H Mean Corpuscular Hemoglobin Concent 32.0 G/DL (32.0-36.0) Red Cell Distribution Width 13.2 % (11.6-14.8) Platelet Count 184 K/UL (150-450) Mean Platelet Volume 6.9 FL (6.5-10.1) Neutrophils (%) (Auto) % (45.0-75.0) Lymphocytes (%) (Auto) % (20.0-45.0) Monocytes (%) (Auto) % (1.0-10.0) Eosinophils (%) (Auto) % (0.0-3.0) Basophils (%) (Auto) % (0.0-2.0) Sodium Level 138 MMOL/L (136-145) Potassium Level 4.8 MMOL/L (3.5-5.1) Chloride Level 105 MMOL/L (98-107) Carbon Dioxide Level 18 MMOL/L (21-32) L Anion Gap 15 mmol/L (5-15) Blood Urea Nitrogen 83 mg/dL (7-18) H Creatinine 7.9 MG/DL (0.55-1.30) H Estimat Glomerular Filtration Rate 8.6 mL/min (>60) Glucose Level 109 MG/DL (74-106) H Uric Acid 6.9 MG/DL (2.6-7.2) Calcium Level 8.4 MG/DL (8.5-10.1) L Phosphorus Level 5.8 MG/DL (2.5-4.9) H Magnesium Level 2.0 MG/DL (1.8-2.4) Total Bilirubin 0.3 MG/DL (0.2-1.0) Aspartate Amino Transf (AST/SGOT) 15 U/L (15-37) Alanine Aminotransferase (ALT/SGPT) 27 U/L (12-78) Alkaline Phosphatase 79 U/L (46-116) Troponin I 0.041 ng/mL (0.000-0.056) Pro-B-Type Natriuretic Peptide 50769 pg/mL (0-125) H Total Protein 6.6 G/DL (6.4-8.2) Albumin 2.9 G/DL (3.4-5.0) L Globulin 3.7 g/dL Albumin/Globulin Ratio 0.8 (1.0-2.7) L Objective HEAD AND NECK: No JVD. LUNGS: Decreased breath sounds. CARDIOVASCULAR: Regular S1 and S2 with no gallop or murmur. ABDOMEN: Soft. EXTREMITIES: 1 plus pitting edema. German Gray MD Jul 13, 2018 10:16
--- NOTE | 2018-07-13 10:46 | Nephrology Progress Note ---
Assessment/Plan Problem List: (1) ARF (acute renal failure) (2) Cocaine abuse (3) Acute exacerbation of CHF (congestive heart failure) (4) Hypertensive cardiomegaly with heart failure Assessment Acute on Chronic renal failure Anemia Elevated troponin Hypertensive renal and heart disease Cocaine abuse Cardiomyopathy Plan refused Simpson transfuse one unit today add cardura to bp meds IV fluid slow BP control- adjust BP meds add hydralazine 2D Echo 55% ej fx BRIDGETT kidneys * Mild fullness of the bilateral renal collecting systems without radiographically appreciable stone and observed bilateral ureteral jets. Findings may be related to mild bladder distention. Consider repeat exam after bladder decompression. monitor renal parameters Avoid nephrotoxics renal diet flomax Subjective ROS Limited/Unobtainable: No Constitutional: Reports: malaise, weakness Objective Objective Last 24 Hour Vital Signs Date Time Temp Pulse Resp B/P (MAP) Pulse Ox O2 Delivery O2 Flow Rate FiO2 07/13/18 09:59 Nasal Cannula 2.0 07/13/18 09:33 143/95 07/13/18 09:32 110 158/111 07/13/18 09:00 110 24 Nasal Cannula 2.0 28 07/13/18 09:00 110 24 96 Nasal Cannula 2.0 28 07/13/18 08:00 98.2 110 19 152/100 (117) 96 07/13/18 07:07 97.6 07/13/18 06:33 143/95 07/13/18 06:33 143/95 07/13/18 04:00 107 07/13/18 04:00 97.6 110 19 143/95 (111) 96 07/13/18 02:32 105 20 100 Nasal Cannula 28 07/13/18 02:23 109 22 94 Nasal Cannula 2.0 28 07/13/18 00:00 95 07/13/18 00:00 98.3 107 18 137/96 (110) 96 07/12/18 21:31 152/100 07/12/18 21:30 152/100 07/12/18 21:00 Nasal Cannula 2.0 07/12/18 20:00 97.7 110 19 152/100 (117) 95 07/12/18 19:30 109 20 Nasal Cannula 2.0 28 07/12/18 17:42 111 22 94 Nasal Cannula 2.0 28 12/30/18 17:29 110 159/109 07/12/18 16:00 97.0 111 20 159/109 (126) 95 07/12/18 16:00 109 07/12/18 13:38 156/109 07/12/18 13:38 156/109 07/12/18 12:00 105 07/12/18 12:00 97.2 105 20 156/109 (125) 95 Intake and Output 07/12/18 07/13/18 18:59 06:59 Intake Total 600 ml Output Total 1300 ml Balance -700 ml Intake Oral 600 ml Output Urine Total 1300 ml Laboratory Tests 07/13/18 04:00: White Blood Count 6.1, Red Blood Count 2.31L, Hemoglobin 7.5L, Hematocrit 23.4L , Mean Corpuscular Volume 101H, Mean Corpuscular Hemoglobin 32.4H, Mean Corpuscular Hemoglobin Concent 32.0, Red Cell Distribution Width 13.2, Platelet Count 184, Mean Platelet Volume 6.9, Neutrophils (%) (Auto) , Lymphocytes (%) ( Auto) , Monocytes (%) (Auto) , Eosinophils (%) (Auto) , Basophils (%) (Auto) , Sodium Level 138, Potassium Level 4.8, Chloride Level 105, Carbon Dioxide Level 18L, Anion Gap 15, Blood Urea Nitrogen 83H, Creatinine 7.9H, Estimat Glomerular Filtration Rate 8.6, Glucose Level 109H, Uric Acid 6.9, Calcium Level 8.4L, Phosphorus Level 5.8H, Magnesium Level 2.0, Total Bilirubin 0.3, Aspartate Amino Transf (AST/SGOT) 15, Alanine Aminotransferase (ALT/SGPT) 27, Alkaline Phosphatase 79, Troponin I 0.041, Pro-B-Type Natriuretic Peptide [id number], Total Protein 6.6, Albumin 2.9L, Globulin 3.7, Albumin/Globulin Ratio 0.8L Height (Feet): 5 Height (Inches): 11.00 Weight (Pounds): 200 General Appearance: no apparent distress Cardiovascular: tachycardia Respiratory/Chest: decreased breath sounds Abdomen: soft, distended Objective no change Richar Cm MD Jul 13, 2018 10:46
--- NOTE | 2018-07-13 10:49 | Pulmonology Progress Note ---
Assessment/Plan Assessment/Plan Pulmonary Progress Note Assessment/Plan Assessment/Plan PROBLEM LIST: 1. Congestive heart failure with acute decompensated heart failure. 2. Abnormal renal function, likely cardiorenal syndrome. 3. History of cocaine abuse with current positive tox screen. 4. Anemia. 5. Hypertension with hypertensive urgency. 6. Acute coronary syndrome/non-ST elevation myocardial infarction. 7. pain back TREATMENT PLAN: -Telemetry -Diuresis as able -BP recs -cards recommendations reviewed -PRBC if less than 7 -Heparin held 2/2 bleeding -Cardiac diet -Needs OP cards F/U -IV PPI, F/U FOBT, heme eval, Subjective ROS Limited/Unobtainable: No Constitutional: Reports: no symptoms HEENT: Repors: visual change Respiratory: Reports: shortness of breath Cardiovascular: Reports: no symptoms Gastrointestinal/Abdominal: Reports: no symptoms Genitourinary: Reports: no symptoms Allergies: Coded Allergies: No Known Allergies (Unverified , 07/08/18) Subjective still wtih sob no cp nv or bleeding no fever not getting oob no nv noted complains of pain and meds not working Objective Vital Signs Noted General Appearance: cachetic HEENT: other - right eye occluded Respiratory/Chest: crackles/rales Cardiovascular: normal rate, regular rhythm Abdomen: soft, non tender, no organomegaly Neurologic/Psychiatric: alert, responsive Microbiology Date/Time Source Procedure Growth Status 07/08/18 22:00 Nose MRSA Culture - Final NO METHICILLIN RESISTANT STAPH AUREUS... Complete 07/08/18 22:00 Rectum - Final NO CARBAPENEM-RESISTANT ENTEROBACTERI... Complete 07/08/18 22:00 Rectum VRE Culture - Final NO VANCOMYCIN RESISTANT ENTEROCOCCUS ... Complete Laboratory Tests 07/11/18 06:00: Urine Eosinophils None seen 07/11/18 09:20: White Blood Count 5.9, Red Blood Count 2.24L, Hemoglobin 7.3L, Hematocrit 22.7L , Mean Corpuscular Volume 102H, Mean Corpuscular Hemoglobin 32.4H, Mean Corpuscular Hemoglobin Concent 31.9L, Red Cell Distribution Width 12.3, Platelet Count 183, Mean Platelet Volume 7.3, Neutrophils (%) (Auto) , Lymphocytes (%) (Auto) , Monocytes (%) (Auto) , Eosinophils (%) (Auto) , Basophils (%) (Auto) , Differential Total Cells Counted 100, Neutrophils % ( Manual) 78H, Lymphocytes % (Manual) 8L, Monocytes % (Manual) 8, Eosinophils % ( Manual) 5H, Basophils % (Manual) 1, Band Neutrophils 0, Platelet Estimate Adequate, Platelet Morphology Normal, Red Blood Cell Morphology Normal, Sodium Level 137, Potassium Level 4.1, Chloride Level 104, Carbon Dioxide Level 19L, Anion Gap 14, Blood Urea Nitrogen 86H, Creatinine 8.4H, Estimat Glomerular Filtration Rate 8.0, Glucose Level 145H, Uric Acid 7.9H, Calcium Level 7.4L, Phosphorus Level 5.2H, Magnesium Level 1.7L, Total Bilirubin 0.2, Aspartate Amino Transf (AST/SGOT) 17, Alanine Aminotransferase (ALT/SGPT) 27, Alkaline Phosphatase 78, C-Reactive Protein, Quantitative 1.8H, Pro-B-Type Natriuretic Peptide [id number], Total Protein 6.1L, Albumin 2.8L, Globulin 3.3, Albumin/ Globulin Ratio 0.8L Current Medications Medications (Trade) Dose Ordered Sig/Harish Route PRN Reason Start Time Stop Time Status Last Admin Dose Admin Acetaminophen (Tylenol) 650 mg Q4H PRN ORAL Mild Pain/Temp > 100.5 07/08/18 23:15 08/07/18 23:14 07/10/18 00:43 Albuterol/ Ipratropium (Albuterol/ Ipratropium) 3 ml Q4H PRN HHN Shortness of Breath 07/09/18 12:30 07/14/18 12:29 07/11/18 15:19 Allopurinol (Zyloprim) 100 mg DAILY ORAL 07/12/18 09:00 08/11/18 08:59 Amlodipine Besylate (Norvasc) 5 mg BID ORAL 07/09/18 18:00 08/09/18 08:59 07/11/18 17:09 Aspirin (ASA) 81 mg DAILY ORAL 07/09/18 09:00 08/08/18 08:59 07/10/18 10:33 Clonidine HCl (Catapres tab) 0.2 mg EVERY 8 HOURS ORAL 07/11/18 14:00 08/09/18 13:59 07/11/18 14:33 Dextrose (Dextrose 50%) 25 ml Q30M PRN IV Hypoglycemia 07/08/18 23:15 08/07/18 23:14 Dextrose (Dextrose 50%) 50 ml Q30M PRN IV Hypoglycemia 07/08/18 23:15 08/07/18 23:14 Diphenhydramine HCl (Benadryl) 25 mg Q6H PRN ORAL Itching/Pruritis 07/08/18 23:15 08/07/18 23:14 07/10/18 22:37 Docusate Sodium (Colace) 100 mg THREE TIMES A DAY ORAL 07/09/18 18:00 08/08/18 17:59 07/10/18 17:22 Epoetin Juan Pablo (Procrit (for non ESRD use)) 10,000 units FRI-FRI-FRI SUBQ 07/13/18 21:00 08/12/18 20:59 Isosorbide Mononitrate (Imdur) 30 mg DAILY ORAL 07/12/18 09:00 08/11/18 08:59 Minoxidil (Loniten) 2.5 mg Q4H PRN ORAL bp over 165 syst 07/11/18 13:45 08/10/18 13:44 Pantoprazole (Protonix) 40 mg EVERY 12 HOURS ORAL 07/11/18 21:00 08/10/18 20:59 Sevelamer Carbonate (Renvela) 800 mg THREE TIMES A DAY ORAL 07/09/18 18:00 08/08/18 17:59 07/11/18 17:09 Sodium Chloride 1,000 ml @ 75 mls/hr [id number] IV 07/09/18 10:45 08/08/18 10:44 07/11/18 16:25 Tamsulosin HCl (Flomax) 0.4 mg BID ORAL 07/10/18 12:53 08/09/18 12:52 07/11/18 17:09 Subjective ROS Limited/Unobtainable: No Allergies: Coded Allergies: No Known Allergies (Unverified , 07/08/18) Objective Last 24 Hour Vital Signs Date Time Temp Pulse Resp B/P (MAP) Pulse Ox O2 Delivery O2 Flow Rate FiO2 07/13/18 09:59 Nasal Cannula 2.0 07/13/18 09:33 143/95 07/13/18 09:32 110 158/111 07/13/18 09:00 110 24 Nasal Cannula 2.0 28 07/13/18 09:00 110 24 96 Nasal Cannula 2.0 28 07/13/18 08:00 98.2 110 19 152/100 (117) 96 07/13/18 07:07 97.6 07/13/18 06:33 143/95 07/13/18 06:33 143/95 07/13/18 04:00 107 07/13/18 04:00 97.6 110 19 143/95 (111) 96 07/13/18 02:32 105 20 100 Nasal Cannula 28 07/13/18 02:23 109 22 94 Nasal Cannula 2.0 28 07/13/18 00:00 95 07/13/18 00:00 98.3 107 18 137/96 (110) 96 07/12/18 21:31 152/100 07/12/18 21:30 152/100 07/12/18 21:00 Nasal Cannula 2.0 07/12/18 20:00 97.7 110 19 152/100 (117) 95 07/12/18 19:30 109 20 Nasal Cannula 2.0 28 07/12/18 17:42 111 22 94 Nasal Cannula 2.0 28 07/12/18 17:29 110 159/109 07/12/18 16:00 97.0 111 20 159/109 (126) 95 07/12/18 16:00 109 07/12/18 13:38 156/109 07/12/18 13:38 156/109 07/12/18 12:00 105 07/12/18 12:00 97.2 105 20 156/109 (125) 95 Intake and Output 07/12/18 07/13/18 18:59 06:59 Intake Total 600 ml Output Total 1300 ml Balance -700 ml Intake Oral 600 ml Output Urine Total 1300 ml Laboratory Tests 07/13/18 04:00: White Blood Count 6.1, Red Blood Count 2.31L, Hemoglobin 7.5L, Hematocrit 23.4L , Mean Corpuscular Volume 101H, Mean Corpuscular Hemoglobin 32.4H, Mean Corpuscular Hemoglobin Concent 32.0, Red Cell Distribution Width 13.2, Platelet Count 184, Mean Platelet Volume 6.9, Neutrophils (%) (Auto) , Lymphocytes (%) ( Auto) , Monocytes (%) (Auto) , Eosinophils (%) (Auto) , Basophils (%) (Auto) , Sodium Level 138, Potassium Level 4.8, Chloride Level 105, Carbon Dioxide Level 18L, Anion Gap 15, Blood Urea Nitrogen 83H, Creatinine 7.9H, Estimat Glomerular Filtration Rate 8.6, Glucose Level 109H, Uric Acid 6.9, Calcium Level 8.4L, Phosphorus Level 5.8H, Magnesium Level 2.0, Total Bilirubin 0.3, Aspartate Amino Transf (AST/SGOT) 15, Alanine Aminotransferase (ALT/SGPT) 27, Alkaline Phosphatase 79, Troponin I 0.041, Pro-B-Type Natriuretic Peptide 23522O, Total Protein 6.6, Albumin 2.9L, Globulin 3.7, Albumin/Globulin Ratio 0.8L Current Medications Medications (Trade) Dose Ordered Sig/Harish Route PRN Reason Start Time Stop Time Status Last Admin Dose Admin Acetaminophen (Tylenol) 650 mg Q4H PRN ORAL Mild Pain/Temp > 100.5 07/08/18 23:15 08/07/18 23:14 07/11/18 20:02 Acetaminophen/ Hydrocodone Bitart ([place] 5/325) 1 tab Q4H PRN ORAL Moderate Pain (Pain Scale 4-6) 07/11/18 22:15 07/18/18 22:14 07/13/18 06:37 Albuterol/ Ipratropium (Albuterol/ Ipratropium) 3 ml Q4H PRN HHN Shortness of Breath 07/09/18 12:30 07/14/18 12:29 07/13/18 09:01 Allopurinol (Zyloprim) 100 mg DAILY ORAL 07/12/18 09:00 08/11/18 08:59 07/13/18 09:33 Amlodipine Besylate (Norvasc) 5 mg BID ORAL 07/09/18 18:00 08/09/18 08:59 07/13/18 09:32 Aspirin (ASA) 81 mg DAILY ORAL 07/09/18 09:00 08/08/18 08:59 07/13/18 09:29 Clonidine HCl (Catapres tab) 0.2 mg EVERY 8 HOURS ORAL 07/11/18 14:00 08/09/18 13:59 07/13/18 06:33 Dextrose (Dextrose 50%) 25 ml Q30M PRN IV Hypoglycemia 07/08/18 23:15 08/07/18 23:14 Dextrose (Dextrose 50%) 50 ml Q30M PRN IV Hypoglycemia 07/08/18 23:15 08/07/18 23:14 Diphenhydramine HCl (Benadryl) 25 mg Q6H PRN ORAL Itching/Pruritis 07/08/18 23:15 08/07/18 23:14 07/12/18 23:18 Docusate Sodium (Colace) 100 mg THREE TIMES A DAY ORAL 07/09/18 18:00 08/08/18 17:59 07/10/18 17:22 Doxazosin Mesylate (Cardura) 1 mg TID ORAL 07/13/18 10:45 08/12/18 10:44 UNV Epoetin Juan Pablo (Procrit (for non ESRD use)) 10,000 units FRI-FRI-FRI SUBQ 07/13/18 21:00 08/12/18 20:59 Hydralazine HCl (Apresoline) 25 mg Q8HR ORAL 07/12/18 14:00 08/11/18 13:59 07/13/18 06:33 Isosorbide Mononitrate (Imdur) 30 mg DAILY ORAL 07/12/18 09:00 08/11/18 08:59 07/13/18 09:33 Minoxidil (Loniten) 2.5 mg Q4H PRN ORAL bp over 165 syst 07/11/18 13:45 08/10/18 13:44 Pantoprazole (Protonix) 40 mg EVERY 12 HOURS ORAL 07/11/18 21:00 08/10/18 20:59 07/13/18 09:29 Sevelamer Carbonate (Renvela) 1,600 mg THREE TIMES A DAY ORAL 07/13/18 09:00 08/08/18 17:59 07/13/18 09:29 Sodium Chloride 1,000 ml @ 75 mls/hr [id number] IV 07/09/18 10:45 08/08/18 10:44 07/13/18 09:34 Sodium Citrate (Bicitra) 30 ml EVERY 6 HOURS ORAL 07/12/18 12:00 08/11/18 11:59 07/13/18 06:33 Tamsulosin HCl (Flomax) 0.4 mg BID ORAL 07/10/18 12:53 08/09/18 12:52 07/13/18 09:29 Pablito Mac MD Jul 13, 2018 10:49
[2018-07-13] MEDS ORDERED: Doxazosin 1mg Tab ORAL SCH (11:00)
[2018-07-13] MEDS: Doxazosin 1mg Tab ORAL SCH ×2 (13:00→17:48)
[2018-07-13 13:25] LABS: APPEARANCE,URINE CLEAR; BILIRUBIN, URINE NEGATIVE (NEGATIVE); COLOR,URINE PALE YELLOW; GLUCOSE, URINE (UA) NEGATIVE (NEGATIVE); KETONES,URINE NEGATIVE (NEGATIVE); LEUKOCYTE ESTERASE ,URINE NEGATIVE (NEGATIVE); NITRITE,URINE NEGATIVE (NEGATIVE); PH,URINE 5 (4.5-8.0); PROTEIN,URINE 3+ (NEGATIVE); UROBILINOGEN,URINE NORMAL MG/DL (0.0-1.0)
[2018-07-13] MEDS: Epogen (for non ESRD use) SUBQ SCH (20:48)
[2018-07-14] VITALS: BP 144/99
[2018-07-14] MEDS: Sodium Citrate 30ml ORAL SCH ×4 (00:05→18:19)
[2018-07-14] MEDS: Albuterol/Ipratropium 3ml neb HHN PRN ×2 (01:21→05:51)
[2018-07-14 04:00] VITALS: BP 147/95
[2018-07-14] MEDS: cloNIDine 0.2mg Tab ORAL SCH ×3 (06:49→21:37)
[2018-07-14] MEDS: HydrALAZINE 25mg tab ORAL SCH (06:50)
[2018-07-14 06:58] LABS: HEMATOCRIT 23.6 % (42.0-52.0); HEMOGLOBIN 7.8 G/DL (14.2-18.0); MEAN CORPUSCULAR VOLUME 100 FL (80-99); PLATELET COUNT 200 K/UL (150-450); RED BLOOD COUNT 2.37 M/UL (4.70-6.10); RED CELL DISTRIBUTION WIDTH 13.1 % (11.6-14.8); WHITE BLOOD COUNT 7.4 K/UL (4.8-10.8)
[2018-07-14 07:03] LABS: ALANINE AMINOTRANSFERASE 24 U/L (12-78); ALBUMIN 2.8 G/DL (3.4-5.0); ALBUMIN/GLOBULIN RATIO 0.7 (1.0-2.7); ALKALINE PHOSPHATASE 87 U/L (46-116); ANION GAP 15 mmol/L (5-15); ASPARTATE AMINO TRANSFERASE 15 U/L (15-37); BILIRUBIN,TOTAL 0.3 MG/DL (0.2-1.0); BLOOD UREA NITROGEN 89 mg/dL (7-18); CALCIUM 8.9 MG/DL (8.5-10.1); CARBON DIOXIDE 20 MMOL/L (21-32); CHLORIDE 103 MMOL/L (98-107); CREATININE 7.5 MG/DL (0.55-1.30); PHOSPHORUS 6.6 MG/DL (2.5-4.9); POTASSIUM 4.8 MMOL/L (3.5-5.1); SODIUM 138 MMOL/L (136-145)
[2018-07-14 08:00] VITALS: BP 150/102
[2018-07-14] MEDS: Tamsulosin 0.4mg cap ORAL SCH ×2 (09:17→18:20)
[2018-07-14] MEDS: Allopurinol 100mg Tab ORAL SCH (09:18)
[2018-07-14] MEDS: Imdur 30mg tab ORAL SCH (09:18)
[2018-07-14] MEDS: Aspirin Baby 81mg ORAL SCH (09:18)
[2018-07-14] MEDS: Docusate 100mg cap ORAL SCH ×3 (09:18→18:00)
[2018-07-14] MEDS: Doxazosin 1mg Tab ORAL SCH ×3 (09:18→18:19)
[2018-07-14] MEDS: Albuterol/Ipratropium 3ml neb HHN SCH ×4 (10:10→23:53)
[2018-07-14 12:00] VITALS: BP 156/99
--- NOTE | 2018-07-14 12:17 | Nephrology Progress Note ---
Assessment/Plan Problem List: (1) ARF (acute renal failure) (2) Cocaine abuse (3) Acute exacerbation of CHF (congestive heart failure) (4) Hypertensive cardiomegaly with heart failure Assessment Acute on Chronic renal failure Anemia Elevated troponin Hypertensive renal and heart disease Cocaine abuse Cardiomyopathy Plan refused Simpson stop IV fluid transfuse one unit 07/13 100mg Lasix and 10 mg Zaroxylin up cardura to bp meds IV fluid slow BP control- adjust BP meds up hydralazine 2D Echo 55% ej fx BRIDGETT kidneys * Mild fullness of the bilateral renal collecting systems without radiographically appreciable stone and observed bilateral ureteral jets. Findings may be related to mild bladder distention. Consider repeat exam after bladder decompression. monitor renal parameters Avoid nephrotoxics renal diet flomax Subjective ROS Limited/Unobtainable: No Objective Objective Last 24 Hour Vital Signs Date Time Temp Pulse Resp B/P (MAP) Pulse Ox O2 Delivery O2 Flow Rate FiO2 07/14/18 11:28 165/109 07/14/18 09:19 112 150/102 07/14/18 09:18 150/102 07/14/18 08:00 96.4 112 20 150/102 (118) 98 07/14/18 06:50 147/95 07/14/18 06:49 147/95 07/14/18 06:00 110 22 99 Nasal Cannula 2.0 28 07/14/18 05:51 105 22 95 Nasal Cannula 2.0 28 07/14/18 04:00 98.2 113 20 147/95 (112) 95 07/14/18 03:49 109 07/14/18 01:30 112 22 100 Nasal Cannula 2.0 28 07/14/18 01:20 111 22 95 Nasal Cannula 2.0 28 07/14/18 00:00 98.0 114 20 144/99 (114) 95 07/13/18 23:44 113 07/13/18 22:08 153/104 07/13/18 22:06 113 153/104 (120) 07/13/18 21:00 Nasal Cannula 2.0 07/13/18 20:54 105 22 99 Nasal Cannula 2.0 28 07/13/18 20:50 165/105 07/13/18 20:45 109 22 94 Nasal Cannula 2.0 28 07/13/18 20:00 98.0 116 19 165/105 (125) 96 07/13/18 19:41 106 22 Nasal Cannula 2.0 28 07/13/18 19:03 113 07/13/18 17:48 111 148/92 07/13/18 16:00 111 07/13/18 16:00 97.5 110 19 148/92 (110) 96 07/13/18 15:27 119 24 100 Nasal Cannula 2.0 28 07/13/18 15:17 114 23 94 Nasal Cannula 2.0 28 07/13/18 14:41 143/98 07/13/18 14:41 143/98 Intake and Output 07/13/18 07/14/18 18:59 06:59 Intake Total 720 ml 720 ml Output Total 120 ml 1000 ml Balance 600 ml -280 ml Other 720 ml 720 ml Output Urine Total 120 ml 1000 ml Laboratory Tests 07/13/18 13:00: Urine Color Pale yellow, Urine Appearance Clear, Urine pH 5, Urine Specific [place] 1.010, Urine Protein 3+H, Urine Glucose (UA) Negative, Urine Ketones Negative, Urine Blood 1+H, Urine Nitrite Negative, Urine Bilirubin Negative, Urine Urobilinogen Normal, Urine Leukocyte Esterase Negative, Urine RBC 0-2H, Urine WBC 0-2, Urine Squamous Epithelial Cells Occasional, Urine Bacteria Occasional, Urine Eosinophils None seen 07/14/18 05:40: White Blood Count 7.4, Red Blood Count 2.37L, Hemoglobin 7.8L, Hematocrit 23.6L , Mean Corpuscular Volume 100H, Mean Corpuscular Hemoglobin 32.9H, Mean Corpuscular Hemoglobin Concent 33.0, Red Cell Distribution Width 13.1, Platelet Count 200, Mean Platelet Volume 8.3, Neutrophils (%) (Auto) , Lymphocytes (%) ( Auto) , Monocytes (%) (Auto) , Eosinophils (%) (Auto) , Basophils (%) (Auto) , Differential Total Cells Counted 100, Neutrophils % (Manual) 78H, Lymphocytes % (Manual) 8L, Monocytes % (Manual) 13H, Eosinophils % (Manual) 1, Basophils % ( Manual) 0, Band Neutrophils 0, Platelet Estimate Adequate, Platelet Morphology Normal, Hypochromasia 1+, Sodium Level 138, Potassium Level 4.8, Chloride Level 103, Carbon Dioxide Level 20L, Anion Gap 15, Blood Urea Nitrogen 89H, Creatinine 7.5H, Estimat Glomerular Filtration Rate 9.1, Glucose Level 145H, Calcium Level 8.9, Phosphorus Level 6.6H, Magnesium Level 2.1, Total Bilirubin 0.3, Aspartate Amino Transf (AST/SGOT) 15, Alanine Aminotransferase (ALT/SGPT) 24, Alkaline Phosphatase 87, Pro-B-Type Natriuretic Peptide 77057G, Total Protein 6.6, Albumin 2.8L, Globulin 3.8, Albumin/Globulin Ratio 0.7L 07/14/18 10:55: Arterial Blood pH 7.357, Arterial Blood Partial Pressure CO2 33.2L, Arterial Blood Partial Pressure O2 81.4, Arterial Blood HCO3 18.2L, Arterial Blood Oxygen Saturation 94.8L, Arterial Blood Base Excess -6.6L, Enzo Test Positive Height (Feet): 5 Height (Inches): 11.00 Weight (Pounds): 206 General Appearance: mild distress Cardiovascular: tachycardia Respiratory/Chest: decreased breath sounds Abdomen: distended Objective no change Richar Cm MD Jul 14, 2018 12:17
[2018-07-14] MEDS ORDERED: HydrALAZINE 25mg tab ORAL SCH (14:00)
--- NOTE | 2018-07-14 15:35 | Cardiac Electrophysiology PN ---
Assessment/Plan Assessment/Plan 1. Non-ST elevation myocardial infarction, likely type 2 in the setting of active cocaine use and renal failure. Troponin levels are flat at 0.2, 0.2 and 0.2. Avoid beta-pablo in view of active cocaine use. Use aspirin and Lipitor to his medical regimen. EF 45% 2. Hypertension. On Norvasc 5 mg bid, Hydralazine,Imdur and Clonidine patch. Avoid beta-blockers. Off ARMAND inhibitor and angiotensin-receptor pablo. 3. End-stage renal disease, has not been started on hemodialysis. Cr 8.[address] Cm.Refusing HD! Iv fluid DCed and got Lasix 100 mg iv 4. Substance use with cocaine. Avoid beta-blockers. 5. Recent pneumonia. 6. Congestive heart failure. Echocardiogram EF 45% 7. Severe anemia s/p PRBC yesterday and today. JEANA RN Subjective Subjective Diuresing on IV Lasix. Still refusing HD. No CP or SOB. Getting blood transfusion Objective Last 24 Hour Vital Signs Date Time Temp Pulse Resp B/P (MAP) Pulse Ox O2 Delivery O2 Flow Rate FiO2 07/14/18 14:45 108 22 99 Nasal Cannula 2.0 28 07/14/18 14:36 113 22 94 Nasal Cannula 2.0 28 07/14/18 14:33 156/99 07/14/18 14:32 156/99 07/14/18 12:00 96.8 111 26 156/99 (118) 99 07/14/18 11:28 165/109 07/14/18 09:19 112 150/102 07/14/18 09:18 150/102 07/14/18 08:00 96.4 112 20 150/102 (118) 98 07/14/18 06:50 147/95 07/14/18 06:49 147/95 07/14/18 06:00 110 22 99 Nasal Cannula 2.0 28 07/14/18 05:51 105 22 95 Nasal Cannula 2.0 28 07/14/18 04:00 98.2 113 20 147/95 (112) 95 07/14/18 03:49 109 07/14/18 01:30 112 22 100 Nasal Cannula 2.0 28 07/14/18 01:20 111 22 95 Nasal Cannula 2.0 28 07/14/18 00:00 98.0 114 20 144/99 (114) 95 07/13/18 23:44 113 07/13/18 22:08 153/104 07/13/18 22:06 113 153/104 (120) 07/13/18 21:00 Nasal Cannula 2.0 07/13/18 20:54 105 22 99 Nasal Cannula 2.0 28 07/13/18 20:50 165/105 07/13/18 20:45 109 22 94 Nasal Cannula 2.0 28 07/13/18 20:00 98.0 116 19 165/105 (125) 96 07/13/18 19:41 106 22 Nasal Cannula 2.0 28 07/13/18 19:03 113 07/13/18 17:48 111 148/92 07/13/18 16:00 111 07/13/18 16:00 97.5 110 19 148/92 (110) 96 Intake and Output 07/13/18 07/14/18 18:59 06:59 Intake Total 720 ml 720 ml Output Total 120 ml 1000 ml Balance 600 ml -280 ml Other 720 ml 720 ml Output Urine Total 120 ml 1000 ml Laboratory Tests Test 07/14/18 05:10 07/14/18 05:40 07/14/18 10:55 C-Reactive Protein, Quantitative 8.1 mg/dL (0.00-0.90) H White Blood Count 7.4 K/UL (4.8-10.8) Red Blood Count 2.37 M/UL (4.70-6.10) L Hemoglobin 7.8 G/DL (14.2-18.0) L Hematocrit 23.6 % (42.0-52.0) L Mean Corpuscular Volume 100 FL (80-99) H Mean Corpuscular Hemoglobin 32.9 PG (27.0-31.0) H Mean Corpuscular Hemoglobin Concent 33.0 G/DL (32.0-36.0) Red Cell Distribution Width 13.1 % (11.6-14.8) Platelet Count 200 K/UL (150-450) Mean Platelet Volume 8.3 FL (6.5-10.1) Neutrophils (%) (Auto) % (45.0-75.0) Lymphocytes (%) (Auto) % (20.0-45.0) Monocytes (%) (Auto) % (1.0-10.0) Eosinophils (%) (Auto) % (0.0-3.0) Basophils (%) (Auto) % (0.0-2.0) Differential Total Cells Counted 100 Neutrophils % (Manual) 78 % (45-75) H Lymphocytes % (Manual) 8 % (20-45) L Monocytes % (Manual) 13 % (1-10) H Eosinophils % (Manual) 1 % (0-3) Basophils % (Manual) 0 % (0-2) Band Neutrophils 0 % (0-8) Platelet Estimate Adequate Platelet Morphology Normal Hypochromasia 1+ Sodium Level 138 MMOL/L (136-145) Potassium Level 4.8 MMOL/L (3.5-5.1) Chloride Level 103 MMOL/L (98-107) Carbon Dioxide Level 20 MMOL/L (21-32) L Anion Gap 15 mmol/L (5-15) Blood Urea Nitrogen 89 mg/dL (7-18) H Creatinine 7.5 MG/DL (0.55-1.30) H Estimat Glomerular Filtration Rate 9.1 mL/min (>60) Glucose Level 145 MG/DL (74-106) H Calcium Level 8.9 MG/DL (8.5-10.1) Phosphorus Level 6.6 MG/DL (2.5-4.9) H Magnesium Level 2.1 MG/DL (1.8-2.4) Total Bilirubin 0.3 MG/DL (0.2-1.0) Aspartate Amino Transf (AST/SGOT) 15 U/L (15-37) Alanine Aminotransferase (ALT/SGPT) 24 U/L (12-78) Alkaline Phosphatase 87 U/L (46-116) Pro-B-Type Natriuretic Peptide 65029 pg/mL (0-125) H Total Protein 6.6 G/DL (6.4-8.2) Albumin 2.8 G/DL (3.4-5.0) L Globulin 3.8 g/dL Albumin/Globulin Ratio 0.7 (1.0-2.7) L Arterial Blood pH 7.357 (7.350-7.450) Arterial Blood Partial Pressure CO2 33.2 mmHg (35.0-45.0) L Arterial Blood Partial Pressure O2 81.4 mmHg (75.0-100.0) Arterial Blood HCO3 18.2 mmol/L (22.0-26.0) L Arterial Blood Oxygen Saturation 94.8 % (95-100) L Arterial Blood Base Excess -6.6 (-2-2) L Enzo Test Positive Objective HEAD AND NECK: No JVD. LUNGS: Decreased breath sounds. CARDIOVASCULAR: Regular S1 and S2 with no gallop or murmur. ABDOMEN: Soft. EXTREMITIES: 1 plus pitting edema. German Gray MD Jul 14, 2018 15:35
[2018-07-14 16:00] VITALS: BP 149/99
--- NOTE | 2018-07-14 16:50 | Pulmonology Progress Note ---
Assessment/Plan Assessment/Plan Pulmonary Progress Note Assessment/Plan Assessment/Plan PROBLEM LIST: 1. Congestive heart failure with acute decompensated heart failure. 2. Abnormal renal function, likely cardiorenal syndrome. 3. History of cocaine abuse with current positive tox screen. 4. Anemia. 5. Hypertension with hypertensive urgency. 6. Acute coronary syndrome/non-ST elevation myocardial infarction. 7. pain back TREATMENT PLAN: -Telemetry -Diuresis as able -BP recs -cards recommendations reviewed -PRBC if less than 7 -Heparin held 2/2 bleeding -Cardiac diet -Needs OP cards F/U -IV PPI, F/U FOBT, heme eval, Subjective ROS Limited/Unobtainable: No Constitutional: Reports: no symptoms HEENT: Repors: visual change Respiratory: Reports: shortness of breath Cardiovascular: Reports: no symptoms Gastrointestinal/Abdominal: Reports: no symptoms Genitourinary: Reports: no symptoms Allergies: Coded Allergies: No Known Allergies (Unverified , 07/08/18) Subjective still wtih sob no cp nv or bleeding no fever not getting oob no nv noted complains of pain and meds not working Objective Vital Signs Noted General Appearance: cachetic HEENT: other - right eye occluded Respiratory/Chest: crackles/rales Cardiovascular: normal rate, regular rhythm Abdomen: soft, non tender, no organomegaly Neurologic/Psychiatric: alert, responsive Microbiology Date/Time Source Procedure Growth Status 07/08/18 22:00 Nose MRSA Culture - Final NO METHICILLIN RESISTANT STAPH AUREUS... Complete 07/08/18 22:00 Rectum - Final NO CARBAPENEM-RESISTANT ENTEROBACTERI... Complete 07/08/18 22:00 Rectum VRE Culture - Final NO VANCOMYCIN RESISTANT ENTEROCOCCUS ... Complete Laboratory Tests 07/11/18 06:00: Urine Eosinophils None seen 07/11/18 09:20: White Blood Count 5.9, Red Blood Count 2.24L, Hemoglobin 7.3L, Hematocrit 22.7L , Mean Corpuscular Volume 102H, Mean Corpuscular Hemoglobin 32.4H, Mean Corpuscular Hemoglobin Concent 31.9L, Red Cell Distribution Width 12.3, Platelet Count 183, Mean Platelet Volume 7.3, Neutrophils (%) (Auto) , Lymphocytes (%) (Auto) , Monocytes (%) (Auto) , Eosinophils (%) (Auto) , Basophils (%) (Auto) , Differential Total Cells Counted 100, Neutrophils % ( Manual) 78H, Lymphocytes % (Manual) 8L, Monocytes % (Manual) 8, Eosinophils % ( Manual) 5H, Basophils % (Manual) 1, Band Neutrophils 0, Platelet Estimate Adequate, Platelet Morphology Normal, Red Blood Cell Morphology Normal, Sodium Level 137, Potassium Level 4.1, Chloride Level 104, Carbon Dioxide Level 19L, Anion Gap 14, Blood Urea Nitrogen 86H, Creatinine 8.4H, Estimat Glomerular Filtration Rate 8.0, Glucose Level 145H, Uric Acid 7.9H, Calcium Level 7.4L, Phosphorus Level 5.2H, Magnesium Level 1.7L, Total Bilirubin 0.2, Aspartate Amino Transf (AST/SGOT) 17, Alanine Aminotransferase (ALT/SGPT) 27, Alkaline Phosphatase 78, C-Reactive Protein, Quantitative 1.8H, Pro-B-Type Natriuretic Peptide 65956M, Total Protein 6.1L, Albumin 2.8L, Globulin 3.3, Albumin/ Globulin Ratio 0.8L Current Medications Medications (Trade) Dose Ordered Sig/Harish Route PRN Reason Start Time Stop Time Status Last Admin Dose Admin Acetaminophen (Tylenol) 650 mg Q4H PRN ORAL Mild Pain/Temp > 100.5 07/08/18 23:15 08/07/18 23:14 07/10/18 00:43 Albuterol/ Ipratropium (Albuterol/ Ipratropium) 3 ml Q4H PRN HHN Shortness of Breath 07/09/18 12:30 07/14/18 12:29 07/11/18 15:19 Allopurinol (Zyloprim) 100 mg DAILY ORAL 07/12/18 09:00 08/11/18 08:59 Amlodipine Besylate (Norvasc) 5 mg BID ORAL 07/09/18 18:00 08/09/18 08:59 07/11/18 17:09 Aspirin (ASA) 81 mg DAILY ORAL 07/09/18 09:00 08/08/18 08:59 07/10/18 10:33 Clonidine HCl (Catapres tab) 0.2 mg EVERY 8 HOURS ORAL 07/11/18 14:00 08/09/18 13:59 07/11/18 14:33 Dextrose (Dextrose 50%) 25 ml Q30M PRN IV Hypoglycemia 07/08/18 23:15 08/07/18 23:14 Dextrose (Dextrose 50%) 50 ml Q30M PRN IV Hypoglycemia 07/08/18 23:15 08/07/18 23:14 Diphenhydramine HCl (Benadryl) 25 mg Q6H PRN ORAL Itching/Pruritis 07/08/18 23:15 08/07/18 23:14 07/10/18 22:37 Docusate Sodium (Colace) 100 mg THREE TIMES A DAY ORAL 07/09/18 18:00 08/08/18 17:59 07/10/18 17:22 Epoetin Juan Pablo (Procrit (for non ESRD use)) 10,000 units FRI-FRI-FRI SUBQ 07/13/18 21:00 08/12/18 20:59 Isosorbide Mononitrate (Imdur) 30 mg DAILY ORAL 07/12/18 09:00 08/11/18 08:59 Minoxidil (Loniten) 2.5 mg Q4H PRN ORAL bp over 165 syst 07/11/18 13:45 08/10/18 13:44 Pantoprazole (Protonix) 40 mg EVERY 12 HOURS ORAL 07/11/18 21:00 08/10/18 20:59 Sevelamer Carbonate (Renvela) 800 mg THREE TIMES A DAY ORAL 07/09/18 18:00 08/08/18 17:59 07/11/18 17:09 Sodium Chloride 1,000 ml @ 75 mls/hr [id number] IV 07/09/18 10:45 08/08/18 10:44 07/11/18 16:25 Tamsulosin HCl (Flomax) 0.4 mg BID ORAL 07/10/18 12:53 08/09/18 12:52 07/11/18 17:09 Subjective ROS Limited/Unobtainable: No Allergies: Coded Allergies: No Known Allergies (Unverified , 07/08/18) Objective Last 24 Hour Vital Signs Date Time Temp Pulse Resp B/P (MAP) Pulse Ox O2 Delivery O2 Flow Rate FiO2 07/14/18 14:45 108 22 99 Nasal Cannula 2.0 28 07/14/18 14:36 113 22 94 Nasal Cannula 2.0 28 07/14/18 14:33 156/99 07/14/18 14:32 156/99 07/14/18 12:00 96.8 111 26 156/99 (118) 99 07/14/18 11:52 114 07/14/18 11:28 165/109 07/14/18 09:19 112 150/102 07/14/18 09:18 150/102 07/14/18 08:30 Nasal Cannula 2.0 07/14/18 08:09 112 07/14/18 08:00 96.4 112 20 150/102 (118) 98 07/14/18 06:50 147/95 07/14/18 06:49 147/95 07/14/18 06:00 110 22 99 Nasal Cannula 2.0 28 07/14/18 05:51 105 22 95 Nasal Cannula 2.0 28 07/14/18 04:00 98.2 113 20 147/95 (112) 95 07/14/18 03:49 109 07/14/18 01:30 112 22 100 Nasal Cannula 2.0 28 07/14/18 01:20 111 22 95 Nasal Cannula 2.0 28 07/14/18 00:00 98.0 114 20 144/99 (114) 95 07/13/18 23:44 113 07/13/18 22:08 153/104 07/13/18 22:06 113 153/104 (120) 07/13/18 21:00 Nasal Cannula 2.0 07/13/18 20:54 105 22 99 Nasal Cannula 2.0 28 07/13/18 20:50 165/105 07/13/18 20:45 109 22 94 Nasal Cannula 2.0 28 07/13/18 20:00 98.0 116 19 165/105 (125) 96 07/13/18 19:41 106 22 Nasal Cannula 2.0 28 07/13/18 19:03 113 07/13/18 17:48 111 148/92 Intake and Output 07/13/18 07/14/18 19:00 07:00 Intake Total 720 ml 720 ml Output Total 120 ml 1000 ml Balance 600 ml -280 ml Other 720 ml 720 ml Output Urine Total 120 ml 1000 ml Laboratory Tests 07/14/18 05:10: C-Reactive Protein, Quantitative 8.1H 07/14/18 05:40: White Blood Count 7.4, Red Blood Count 2.37L, Hemoglobin 7.8L, Hematocrit 23.6L , Mean Corpuscular Volume 100H, Mean Corpuscular Hemoglobin 32.9H, Mean Corpuscular Hemoglobin Concent 33.0, Red Cell Distribution Width 13.1, Platelet Count 200, Mean Platelet Volume 8.3, Neutrophils (%) (Auto) , Lymphocytes (%) ( Auto) , Monocytes (%) (Auto) , Eosinophils (%) (Auto) , Basophils (%) (Auto) , Differential Total Cells Counted 100, Neutrophils % (Manual) 78H, Lymphocytes % (Manual) 8L, Monocytes % (Manual) 13H, Eosinophils % (Manual) 1, Basophils % ( Manual) 0, Band Neutrophils 0, Platelet Estimate Adequate, Platelet Morphology Normal, Hypochromasia 1+, Sodium Level 138, Potassium Level 4.8, Chloride Level 103, Carbon Dioxide Level 20L, Anion Gap 15, Blood Urea Nitrogen 89H, Creatinine 7.5H, Estimat Glomerular Filtration Rate 9.1, Glucose Level 145H, Calcium Level 8.9, Phosphorus Level 6.6H, Magnesium Level 2.1, Total Bilirubin 0.3, Aspartate Amino Transf (AST/SGOT) 15, Alanine Aminotransferase (ALT/SGPT) 24, Alkaline Phosphatase 87, Pro-B-Type Natriuretic Peptide 13760U, Total Protein 6.6, Albumin 2.8L, Globulin 3.8, Albumin/Globulin Ratio 0.7L 07/14/18 10:55: Arterial Blood pH 7.357, Arterial Blood Partial Pressure CO2 33.2L, Arterial Blood Partial Pressure O2 81.4, Arterial Blood HCO3 18.2L, Arterial Blood Oxygen Saturation 94.8L, Arterial Blood Base Excess -6.6L, Enzo Test Positive Current Medications Medications (Trade) Dose Ordered Sig/Harish Route PRN Reason Start Time Stop Time Status Last Admin Dose Admin Acetaminophen (Tylenol) 650 mg Q4H PRN ORAL Mild Pain/Temp > 100.5 07/08/18 23:15 08/07/18 23:14 07/11/18 20:02 Acetaminophen/ Hydrocodone Bitart ([place] 5/325) 1 tab Q4H PRN ORAL Moderate Pain (Pain Scale 4-6) 07/11/18 22:15 07/18/18 22:14 07/13/18 20:55 Albuterol/ Ipratropium (Albuterol/ Ipratropium) 3 ml Q4HRT HHN 07/14/18 11:00 07/19/18 10:59 07/14/18 14:35 Allopurinol (Zyloprim) 100 mg DAILY ORAL 07/12/18 09:00 08/11/18 08:59 07/14/18 09:18 Amlodipine Besylate (Norvasc) 5 mg BID ORAL 07/09/18 18:00 08/09/18 08:59 07/14/18 09:19 Aspirin (ASA) 81 mg DAILY ORAL 07/09/18 09:00 08/08/18 08:59 07/14/18 09:18 Clonidine HCl (Catapres tab) 0.2 mg EVERY 8 HOURS ORAL 07/11/18 14:00 08/09/18 13:59 07/14/18 14:33 Dextrose (Dextrose 50%) 25 ml Q30M PRN IV Hypoglycemia 07/08/18 23:15 08/07/18 23:14 Dextrose (Dextrose 50%) 50 ml Q30M PRN IV Hypoglycemia 07/08/18 23:15 08/07/18 23:14 Diphenhydramine HCl (Benadryl) 25 mg Q6H PRN ORAL Itching/Pruritis 07/08/18 23:15 08/07/18 23:14 07/14/18 00:08 Docusate Sodium (Colace) 100 mg THREE TIMES A DAY ORAL 07/09/18 18:00 08/08/18 17:59 07/14/18 09:18 Doxazosin Mesylate (Cardura) 2 mg TID ORAL 07/14/18 13:00 08/12/18 12:59 07/14/18 14:32 Epoetin Juan Pablo (Procrit (for non ESRD use)) 10,000 units FRI-FRI-FRI SUBQ 07/13/18 21:00 08/12/18 20:59 07/13/18 20:48 Hydralazine HCl (Apresoline) 50 mg Q8HR ORAL 07/14/18 14:00 08/11/18 13:59 07/14/18 14:32 Isosorbide Mononitrate (Imdur) 60 mg DAILY ORAL 07/15/18 09:00 08/11/18 08:59 Minoxidil (Loniten) 2.5 mg Q4H PRN ORAL bp over 165 syst 07/11/18 13:45 08/10/18 13:44 07/14/18 11:28 Pantoprazole (Protonix) 40 mg EVERY 12 HOURS ORAL 07/11/18 21:00 08/10/18 20:59 07/14/18 09:17 Sevelamer Carbonate (Renvela) 2,400 mg THREE TIMES A DAY ORAL 07/14/18 13:00 08/08/18 17:59 07/14/18 14:56 Sodium Citrate (Bicitra) 30 ml EVERY 6 HOURS ORAL 07/12/18 12:00 08/11/18 11:59 07/14/18 11:29 Tamsulosin HCl (Flomax) 0.4 mg BID ORAL 07/10/18 12:53 08/09/18 12:52 07/14/18 09:17 Pablito Mac MD Jul 14, 2018 16:50
[2018-07-14 20:00] VITALS: BP 142/93
--- NOTE | 2018-07-14 20:51 | General Progress Note ---
Assessment/Plan Assessment/Plan ASSESSMENT AND RECS # Anemia of chronic disease, multifactorial, grace on ckd --> Anemia w/u has been reviewed --> No evidence of hemolysis is noted, peripheral smear has been reviewed. --> Hgb goal >7. Transfuse prn. --> continue on epo # Congestive heart failure with acute decompensated heart failure. --> per cards management --> In tele unit --> on diuresis # Abnormal renal function, likely cardiorenal syndrome. --> Nephrology is following appreciate recs # History of cocaine abuse with current positive tox screen. # Hypertension with hypertensive urgency. # Acute coronary syndrome/non-ST elevation myocardial infarction. GREATLY APPRECIATE CONSULTATION. Date and time note entered does not reflect time and date patient was seen. Subjective Constitutional: Denies: no symptoms, chills, diaphoresis, fever, malaise, weakness, other HEENT: Denies: no symptoms, eye pain, blurred vision, tearing, double vision, ear pain, ear discharge, nose pain, nose congestion, throat pain, throat swelling, mouth pain, mouth swelling, other Cardiovascular: Denies: no symptoms, chest pain, edema, irregular heart rate, lightheadedness, palpitations, syncope, other Genitourinary: Denies: no symptoms, burning, discharge, frequency, flank pain, hematuria, incontinence, pain, urgency, other Endocrine: Denies: no symptoms, excessive sweating, flushing, intolerance to cold, intolerance to heat, increased hunger, increased thirst, increased urine, unexplained weight gain, unexplained weight loss, other Hematologic/Lymphatic: Denies: no symptoms, anemia, easy bleeding, easy bruising, other Allergies: Coded Allergies: No Known Allergies (Unverified , 07/08/18) Subjective 07/12: no events, cr trending, h/h stable, on epo 07/14: transfuse one unit 07/13, diruresed, refused mendez, seen by cards, bp better Objective Last 24 Hour Vital Signs Date Time Temp Pulse Resp B/P (MAP) Pulse Ox O2 Delivery O2 Flow Rate FiO2 07/14/18 19:44 111 24 98 Nasal Cannula 2.0 28 07/14/18 19:33 115 24 96 Nasal Cannula 2.0 28 07/14/18 19:31 113 24 Nasal Cannula 2.0 28 07/14/18 18:20 113 149/99 1/1/19 16:00 96.7 113 24 149/99 (116) 99 07/14/18 15:49 109 07/14/18 14:45 108 22 99 Nasal Cannula 2.0 28 07/14/18 14:36 113 22 94 Nasal Cannula 2.0 28 07/14/18 14:33 156/99 07/14/18 14:32 156/99 07/14/18 12:00 96.8 111 26 156/99 (118) 99 07/14/18 11:52 114 07/14/18 11:28 165/109 07/14/18 09:19 112 150/102 07/14/18 09:18 150/102 07/14/18 08:30 Nasal Cannula 2.0 07/14/18 08:09 112 07/14/18 08:00 96.4 112 20 150/102 (118) 98 07/14/18 06:50 147/95 07/14/18 06:49 147/95 07/14/18 06:00 110 22 99 Nasal Cannula 2.0 28 07/14/18 05:51 105 22 95 Nasal Cannula 2.0 28 07/14/18 04:00 98.2 113 20 147/95 (112) 95 07/14/18 03:49 109 07/14/18 01:30 112 22 100 Nasal Cannula 2.0 28 07/14/18 01:20 111 22 95 Nasal Cannula 2.0 28 07/14/18 00:00 98.0 114 20 144/99 (114) 95 07/13/18 23:44 113 07/13/18 22:08 153/104 07/13/18 22:06 113 153/104 (120) 07/13/18 21:00 Nasal Cannula 2.0 07/13/18 20:54 105 22 99 Nasal Cannula 2.0 28 07/13/18 20:50 165/105 Intake and Output 07/13/18 07/14/18 19:00 07:00 Intake Total 720 ml 720 ml Output Total 120 ml 1000 ml Balance 600 ml -280 ml Other 720 ml 720 ml Output Urine Total 120 ml 1000 ml Laboratory Tests 07/14/18 05:10: C-Reactive Protein, Quantitative 8.1H 07/14/18 05:40: White Blood Count 7.4, Red Blood Count 2.37L, Hemoglobin 7.8L, Hematocrit 23.6L , Mean Corpuscular Volume 100H, Mean Corpuscular Hemoglobin 32.9H, Mean Corpuscular Hemoglobin Concent 33.0, Red Cell Distribution Width 13.1, Platelet Count 200, Mean Platelet Volume 8.3, Neutrophils (%) (Auto) , Lymphocytes (%) ( Auto) , Monocytes (%) (Auto) , Eosinophils (%) (Auto) , Basophils (%) (Auto) , Differential Total Cells Counted 100, Neutrophils % (Manual) 78H, Lymphocytes % (Manual) 8L, Monocytes % (Manual) 13H, Eosinophils % (Manual) 1, Basophils % ( Manual) 0, Band Neutrophils 0, Platelet Estimate Adequate, Platelet Morphology Normal, Hypochromasia 1+, Sodium Level 138, Potassium Level 4.8, Chloride Level 103, Carbon Dioxide Level 20L, Anion Gap 15, Blood Urea Nitrogen 89H, Creatinine 7.5H, Estimat Glomerular Filtration Rate 9.1, Glucose Level 145H, Calcium Level 8.9, Phosphorus Level 6.6H, Magnesium Level 2.1, Total Bilirubin 0.3, Aspartate Amino Transf (AST/SGOT) 15, Alanine Aminotransferase (ALT/SGPT) 24, Alkaline Phosphatase 87, Pro-B-Type Natriuretic Peptide [id number], Total Protein 6.6, Albumin 2.8L, Globulin 3.8, Albumin/Globulin Ratio 0.7L 07/14/18 10:55: Arterial Blood pH 7.357, Arterial Blood Partial Pressure CO2 33.2L, Arterial Blood Partial Pressure O2 81.4, Arterial Blood HCO3 18.2L, Arterial Blood Oxygen Saturation 94.8L, Arterial Blood Base Excess -6.6L, Enzo Test Positive Height (Feet): 5 Height (Inches): 11.00 Weight (Pounds): 206 General Appearance: lethargic EENT: pharynx normal Neck: supple Cardiovascular: regular rhythm Respiratory/Chest: no accessory muscle use Abdomen: no mass Extremities: non-tender Edema: mild edema Neurologic: alert Skin: normal pigmentation Shane Mary MD Jul 14, 2018 20:50
[2018-07-14] MEDS: HydrALAZINE 50mg tab ORAL SCH (21:49)
[2018-07-15] VITALS: BP 120/62
[2018-07-15] MEDS: Sodium Citrate 30ml ORAL SCH ×4 (00:03→17:27)
[2018-07-15 04:00] VITALS: BP 141/85
[2018-07-15] MEDS: cloNIDine 0.2mg Tab ORAL SCH ×3 (05:46→21:49)
[2018-07-15] MEDS: HydrALAZINE 50mg tab ORAL SCH (05:47)
[2018-07-15] MEDS: Albuterol/Ipratropium 3ml neb HHN SCH ×5 (05:54→20:26)
[2018-07-15 06:55] LABS: EOSINOPHILS % (AUTO) 3.7 % (0.0-3.0); HEMATOCRIT 24.7 % (42.0-52.0); HEMOGLOBIN 8.1 G/DL (14.2-18.0); LYMPHOCYTES % (AUTO) 7.2 % (20.0-45.0); MEAN CORPUSCULAR VOLUME 99 FL (80-99); MONOCYTES % (AUTO) 14.7 % (1.0-10.0); NEUTROPHILS % (AUTO) 72.4 % (45.0-75.0); PLATELET COUNT 203 K/UL (150-450); WHITE BLOOD COUNT 7.3 K/UL (4.8-10.8)
[2018-07-15 07:06] LABS: INR 0.9 (0.9-1.1)
[2018-07-15 07:26] LABS: ALANINE AMINOTRANSFERASE 25 U/L (12-78); ALBUMIN 2.9 G/DL (3.4-5.0); ALBUMIN/GLOBULIN RATIO 0.9 (1.0-2.7); ALKALINE PHOSPHATASE 95 U/L (46-116); ANION GAP 15 mmol/L (5-15); ASPARTATE AMINO TRANSFERASE 16 U/L (15-37); BILIRUBIN,TOTAL 0.3 MG/DL (0.2-1.0); BLOOD UREA NITROGEN 102 mg/dL (7-18); CALCIUM 8.5 MG/DL (8.5-10.1); CARBON DIOXIDE 20 MMOL/L (21-32); CHLORIDE 103 MMOL/L (98-107); CREATININE 7.7 MG/DL (0.55-1.30); POTASSIUM 5.1 MMOL/L (3.5-5.1); SODIUM 138 MMOL/L (136-145)
[2018-07-15 08:00] VITALS: BP 148/95
[2018-07-15] MEDS: Tamsulosin 0.4mg cap ORAL SCH ×2 (08:15→17:27)
[2018-07-15] MEDS: Imdur 30mg tab ORAL SCH (08:16)
[2018-07-15] MEDS: Aspirin Baby 81mg ORAL SCH (08:17)
[2018-07-15] MEDS: Allopurinol 100mg Tab ORAL SCH (08:17)
[2018-07-15] MEDS: Doxazosin 1mg Tab ORAL SCH (08:17)
[2018-07-15] MEDS: Docusate 100mg cap ORAL SCH ×3 (08:18→17:28)
--- NOTE | 2018-07-15 10:44 | Pulmonology Progress Note ---
Assessment/Plan Problems: (1) Epistaxis (2) Acute exacerbation of CHF (congestive heart failure) (3) Hypertensive cardiomegaly with heart failure (4) ACS (acute coronary syndrome) (5) Cocaine abuse (6) ARF (acute renal failure) Assessment/Plan ASSESSMENT: The patient is a 58-year-old male with history of cocaine and tobacco abuse, congestive heart failure, and renal impairment, presenting with decompensated heart failure and abnormal renal function with marked uremia. He has previously been told he needs dialysis. He is now being admitted for acute coronary syndrome and likely need for dialysis. PROBLEM LIST: 1. Congestive heart failure with acute decompensated heart failure. 2. Abnormal renal function, likely cardiorenal syndrome. 3. History of cocaine abuse with current positive tox screen. 4. Anemia. 5. Hypertension with hypertensive urgency. 6. Acute coronary syndrome/non-ST elevation myocardial infarction. TREATMENT PLAN: -Telemetry -Trial at diuresis per renal -Continue to decline HD -Control BP -F/U cards and renal recs -Cardiac diet -F/U heme recs, needs GI eval at some point but currently unstable for endoscopy -DVT Px: hep SQ Subjective Allergies: Coded Allergies: No Known Allergies (Unverified , 07/08/18) Subjective AFVSS BP elevated on 2L Refused HD S/P trial of diuretics Renal function worse + SOB no cough no wheezing no F/C Objective Last 24 Hour Vital Signs Date Time Temp Pulse Resp B/P (MAP) Pulse Ox O2 Delivery O2 Flow Rate FiO2 07/15/18 08:18 110 148/95 07/15/18 08:16 148/95 07/15/18 08:00 108 07/15/18 08:00 98.1 108 21 148/95 (112) 97 07/15/18 07:36 98 20 Nasal Cannula 2.0 07/15/18 07:27 Nasal Cannula 2.0 28 07/15/18 07:27 Nasal Cannula 2.0 07/15/18 05:47 141/85 07/15/18 05:46 141/85 07/15/18 04:00 108 07/15/18 04:00 99.0 112 23 141/85 (103) 95 07/15/18 03:28 Nasal Cannula 2.0 07/15/18 03:25 108 24 97 Nasal Cannula 2.0 07/15/18 03:15 110 24 95 Nasal Cannula 2.0 28 07/15/18 00:00 106 24 97 Nasal Cannula 2.0 28 07/15/18 00:00 110 07/15/18 00:00 97.0 62 20 120/62 (81) 98 07/14/18 23:51 111 24 95 Nasal Cannula 2.0 28 07/14/18 21:49 142/93 07/14/18 21:37 142/93 07/14/18 21:00 Nasal Cannula 2.0 07/14/18 20:00 112 07/14/18 20:00 97.2 111 20 142/93 (109) 98 07/14/18 19:44 111 24 98 Nasal Cannula 2.0 28 07/14/18 19:33 115 24 96 Nasal Cannula 2.0 28 07/14/18 19:31 113 24 Nasal Cannula 2.0 28 07/14/18 18:20 113 149/99 07/14/18 16:00 96.7 113 24 149/99 (116) 99 07/14/18 15:49 109 07/14/18 14:45 108 22 99 Nasal Cannula 2.0 28 07/14/18 14:36 113 22 94 Nasal Cannula 2.0 28 07/14/18 14:33 156/99 07/14/18 14:32 156/99 07/14/18 12:00 96.8 111 26 156/99 (118) 99 07/14/18 11:52 114 07/14/18 11:28 165/109 Intake and Output 07/14/18 07/15/18 19:00 07:00 Intake Total 890 ml 1270 ml Output Total 1300 ml 1050 ml Balance -410 ml 220 ml Intake Oral 890 ml 550 ml Other 720 ml Output Urine Total 1300 ml 1050 ml # Voids 2 # Bowel Movements 1 General Appearance: cachetic HEENT: normocephalic, atraumatic, anicteric, mucous membranes moist Respiratory/Chest: crackles/rales Cardiovascular: normal peripheral pulses, regular rhythm, tachycardia Abdomen: normal bowel sounds, soft, non tender, no organomegaly, non distended , no mass Extremities: no cyanosis, no clubbing, other - 1+ edema Laboratory Tests 07/14/18 10:55: Arterial Blood pH 7.357, Arterial Blood Partial Pressure CO2 33.2L, Arterial Blood Partial Pressure O2 81.4, Arterial Blood HCO3 18.2L, Arterial Blood Oxygen Saturation 94.8L, Arterial Blood Base Excess -6.6L, Enzo Test Positive 07/15/18 05:39: White Blood Count 7.3, Red Blood Count 2.50L, Hemoglobin 8.1L, Hematocrit 24.7L , Mean Corpuscular Volume 99, Mean Corpuscular Hemoglobin 32.6H, Mean Corpuscular Hemoglobin Concent 33.0, Red Cell Distribution Width 14.0, Platelet Count 203, Mean Platelet Volume 6.8, Neutrophils (%) (Auto) 72.4, Lymphocytes (% ) (Auto) 7.2L, Monocytes (%) (Auto) 14.7H, Eosinophils (%) (Auto) 3.7H, Basophils (%) (Auto) 2.0, Prothrombin Time 10.0, Prothromb Time International Ratio 0.9, Activated Partial Thromboplast Time 32, Sodium Level 138, Potassium Level 5.1, Chloride Level 103, Carbon Dioxide Level 20L, Anion Gap 15, Blood Urea Nitrogen 102H, Creatinine 7.7H, Estimat Glomerular Filtration Rate 8.8, Glucose Level 106, Uric Acid 7.0, Calcium Level 8.5, Phosphorus Level 7.0H, Magnesium Level 2.1, Total Bilirubin 0.3, Aspartate Amino Transf (AST/SGOT) 16, Alanine Aminotransferase (ALT/SGPT) 25, Alkaline Phosphatase 95, Troponin I 0.062H, Pro-B-Type Natriuretic Peptide [id number], Total Protein 6.0L, Albumin 2.9L , Globulin 3.1, Albumin/Globulin Ratio 0.9L Current Medications Medications (Trade) Dose Ordered Sig/Harish Route PRN Reason Start Time Stop Time Status Last Admin Dose Admin Acetaminophen (Tylenol) 650 mg Q4H PRN ORAL Mild Pain/Temp > 100.5 07/08/18 23:15 08/07/18 23:14 07/11/18 20:02 Acetaminophen/ Hydrocodone Bitart ([place] 5/325) 1 tab Q4H PRN ORAL Moderate Pain (Pain Scale 4-6) 07/11/18 22:15 07/18/18 22:14 07/13/18 20:55 Albuterol/ Ipratropium (Albuterol/ Ipratropium) 3 ml Q4HRT HHN 07/14/18 11:00 07/19/18 10:59 07/15/18 05:54 Allopurinol (Zyloprim) 100 mg DAILY ORAL 07/12/18 09:00 08/11/18 08:59 07/15/18 08:17 Amlodipine Besylate (Norvasc) 5 mg BID ORAL 07/09/18 18:00 08/09/18 08:59 07/15/18 08:18 Aspirin (ASA) 81 mg DAILY ORAL 07/09/18 09:00 08/08/18 08:59 07/15/18 08:17 Clonidine HCl (Catapres tab) 0.2 mg EVERY 8 HOURS ORAL 07/11/18 14:00 08/09/18 13:59 07/15/18 05:46 Dextrose (Dextrose 50%) 25 ml Q30M PRN IV Hypoglycemia 07/08/18 23:15 08/07/18 23:14 Dextrose (Dextrose 50%) 50 ml Q30M PRN IV Hypoglycemia 07/08/18 23:15 08/07/18 23:14 Diphenhydramine HCl (Benadryl) 25 mg Q6H PRN ORAL Itching/Pruritis 07/08/18 23:15 08/07/18 23:14 07/14/18 22:08 Docusate Sodium (Colace) 100 mg THREE TIMES A DAY ORAL 07/09/18 18:00 08/08/18 17:59 07/15/18 08:18 Doxazosin Mesylate (Cardura) 2 mg TID ORAL 07/14/18 13:00 08/12/18 12:59 07/15/18 08:17 Epoetin Juan Pablo (Procrit (for non ESRD use)) 10,000 units FRI-FRI-FRI SUBQ 07/13/18 21:00 08/12/18 20:59 07/13/18 20:48 Hydralazine HCl (Apresoline) 50 mg Q8HR ORAL 07/14/18 22:00 08/11/18 13:59 07/15/18 05:47 Isosorbide Mononitrate (Imdur) 60 mg DAILY ORAL 07/15/18 09:00 08/11/18 08:59 07/15/18 08:16 Minoxidil (Loniten) 2.5 mg Q4H PRN ORAL bp over 165 syst 07/11/18 13:45 08/10/18 13:44 07/14/18 11:28 Pantoprazole (Protonix) 40 mg EVERY 12 HOURS ORAL 07/11/18 21:00 08/10/18 20:59 07/15/18 08:14 Sevelamer Carbonate (Renvela) 2,400 mg THREE TIMES A DAY ORAL 07/14/18 13:00 08/08/18 17:59 07/15/18 08:15 Sodium Citrate (Bicitra) 30 ml EVERY 6 HOURS ORAL 07/12/18 12:00 08/11/18 11:59 07/15/18 05:46 Tamsulosin HCl (Flomax) 0.4 mg BID ORAL 07/10/18 12:53 08/09/18 12:52 07/15/18 08:15 Edgard Webb MD Jul 15, 2018 10:44
[2018-07-15 12:00] VITALS: BP 136/87
--- NOTE | 2018-07-15 12:14 | Consultation ---
History of Present Illness General Chief Complaint: Dyspnea/Respdistress Present Illness HPI 58-year-old male with history of depression, anxiety and cocaine and tobacco abuse, congestive heart failure, htn presenting with dyspnea and abnormal renal function. the pt was angry and irritable. the pt yelled at his nurse earlier. the pt stated that he does not want to go on dalasis yet. he stated "i would like to think about it another day. people fast on this sh*t" the pt was able to understand, process and appreciate the info given to him. the pt has capacity. He is reluctant to take psychotropic meds. Allergies: Coded Allergies: No Known Allergies (Unverified , 07/08/18) Medication History Scheduled Furosemide (Furosemide), 80 MG ORAL DAILY, (Reported) Hydralazine Hcl* (Hydralazine Hcl*), 50 MG ORAL EVERY 8 HOURS, (Reported) Miscellaneous Medications Unable to Obtain Medications (Unable To Obtain Meds), (Reported) Patient History History Provided By: Patient, Medical Record, PMD Healthcare decision maker N Resuscitation status Full Code Advanced Directive on File Past Medical/Surgical History Past Medical/Surgical History: (1) ARF (acute renal failure) (2) Cocaine abuse (3) Acute exacerbation of CHF (congestive heart failure) (4) Hypertensive cardiomegaly with heart failure (5) Epistaxis (6) ACS (acute coronary syndrome) Review of Systems Psychiatric: Reports: prior hx, anxiety, depressed feelings, emotional problems Physical Exam General Appearance: alert, moderate distress, agitated Neurologic: oriented x 3, responsive, depressed affect Last 24 Hour Vital Signs Date Time Temp Pulse Resp B/P (MAP) Pulse Ox O2 Delivery O2 Flow Rate FiO2 07/15/18 10:58 104 26 97 Nasal Cannula 2.0 07/15/18 10:52 109 22 96 Nasal Cannula 2.0 28 07/15/18 08:18 110 148/95 07/15/18 08:16 148/95 07/15/18 08:00 108 07/15/18 08:00 98.1 108 21 148/95 (112) 97 07/15/18 07:36 98 20 Nasal Cannula 2.0 28 07/15/18 07:27 Nasal Cannula 2.0 28 07/15/18 07:27 Nasal Cannula 2.0 28 07/15/18 05:47 141/85 07/15/18 05:46 141/85 07/15/18 04:00 108 07/15/18 04:00 99.0 112 23 141/85 (103) 95 07/15/18 03:28 Nasal Cannula 2.0 28 07/15/18 03:25 108 24 97 Nasal Cannula 2.0 28 07/15/18 03:15 110 24 95 Nasal Cannula 2.0 28 07/15/18 00:00 106 24 97 Nasal Cannula 2.0 28 07/15/18 00:00 110 07/15/18 00:00 97.0 62 20 120/62 (81) 98 07/14/18 23:51 111 24 95 Nasal Cannula 2.0 28 07/14/18 21:49 142/93 07/14/18 21:37 142/93 07/14/18 21:00 Nasal Cannula 2.0 07/14/18 20:00 112 07/14/18 20:00 97.2 111 20 142/93 (109) 98 07/14/18 19:44 111 24 98 Nasal Cannula 2.0 28 07/14/18 19:33 115 24 96 Nasal Cannula 2.0 28 07/14/18 19:31 113 24 Nasal Cannula 2.0 28 07/14/18 18:20 113 149/99 07/14/18 16:00 96.7 113 24 149/99 (116) 99 07/14/18 15:49 109 07/14/18 14:45 108 22 99 Nasal Cannula 2.0 28 07/14/18 14:36 113 22 94 Nasal Cannula 2.0 28 07/14/18 14:33 156/99 07/14/18 14:32 156/99 Intake and Output 07/14/18 07/15/18 19:00 07:00 Intake Total 890 ml 1270 ml Output Total 1300 ml 1050 ml Balance -410 ml 220 ml Intake Oral 890 ml 550 ml Other 720 ml Output Urine Total 1300 ml 1050 ml # Voids 2 # Bowel Movements 1 Laboratory Tests Test 07/15/18 05:39 White Blood Count 7.3 K/UL (4.8-10.8) Red Blood Count 2.50 M/UL (4.70-6.10) L Hemoglobin 8.1 G/DL (14.2-18.0) L Hematocrit 24.7 % (42.0-52.0) L Mean Corpuscular Volume 99 FL (80-99) Mean Corpuscular Hemoglobin 32.6 PG (27.0-31.0) H Mean Corpuscular Hemoglobin Concent 33.0 G/DL (32.0-36.0) Red Cell Distribution Width 14.0 % (11.6-14.8) Platelet Count 203 K/UL (150-450) Mean Platelet Volume 6.8 FL (6.5-10.1) Neutrophils (%) (Auto) 72.4 % (45.0-75.0) Lymphocytes (%) (Auto) 7.2 % (20.0-45.0) L Monocytes (%) (Auto) 14.7 % (1.0-10.0) H Eosinophils (%) (Auto) 3.7 % (0.0-3.0) H Basophils (%) (Auto) 2.0 % (0.0-2.0) Prothrombin Time 10.0 SEC (9.30-11.50) Prothromb Time International Ratio 0.9 (0.9-1.1) Activated Partial Thromboplast Time 32 SEC (23-33) Sodium Level 138 MMOL/L (136-145) Potassium Level 5.1 MMOL/L (3.5-5.1) Chloride Level 103 MMOL/L (98-107) Carbon Dioxide Level 20 MMOL/L (21-32) L Anion Gap 15 mmol/L (5-15) Blood Urea Nitrogen 102 mg/dL (7-18) H Creatinine 7.7 MG/DL (0.55-1.30) H Estimat Glomerular Filtration Rate 8.8 mL/min (>60) Glucose Level 106 MG/DL (74-106) Uric Acid 7.0 MG/DL (2.6-7.2) Calcium Level 8.5 MG/DL (8.5-10.1) Phosphorus Level 7.0 MG/DL (2.5-4.9) H Magnesium Level 2.1 MG/DL (1.8-2.4) Total Bilirubin 0.3 MG/DL (0.2-1.0) Aspartate Amino Transf (AST/SGOT) 16 U/L (15-37) Alanine Aminotransferase (ALT/SGPT) 25 U/L (12-78) Alkaline Phosphatase 95 U/L (46-116) Troponin I 0.062 ng/mL (0.000-0.056) Pro-B-Type Natriuretic Peptide 16538 pg/mL (0-125) H Total Protein 6.0 G/DL (6.4-8.2) L Albumin 2.9 G/DL (3.4-5.0) L Globulin 3.1 g/dL Albumin/Globulin Ratio 0.9 (1.0-2.7) L Height (Feet): 5 Height (Inches): 11.00 Weight (Pounds): 205 Medications Current Medications Medications (Trade) Dose Ordered Sig/Harish Route PRN Reason Start Time Stop Time Status Last Admin Dose Admin Acetaminophen (Tylenol) 650 mg Q4H PRN ORAL Mild Pain/Temp > 100.5 07/08/18 23:15 08/07/18 23:14 07/11/18 20:02 Acetaminophen/ Hydrocodone Bitart ([place] 5/325) 1 tab Q4H PRN ORAL Moderate Pain (Pain Scale 4-6) 07/11/18 22:15 07/18/18 22:14 07/13/18 20:55 Albuterol/ Ipratropium (Albuterol/ Ipratropium) 3 ml Q4HRT HHN 07/14/18 11:00 07/19/18 10:59 07/15/18 10:58 Allopurinol (Zyloprim) 100 mg DAILY ORAL 07/12/18 09:00 08/11/18 08:59 07/15/18 08:17 Amlodipine Besylate (Norvasc) 5 mg BID ORAL 07/09/18 18:00 08/09/18 08:59 07/15/18 08:18 Aspirin (ASA) 81 mg DAILY ORAL 07/09/18 09:00 08/08/18 08:59 07/15/18 08:17 Clonidine HCl (Catapres tab) 0.2 mg EVERY 8 HOURS ORAL 07/11/18 14:00 08/09/18 13:59 07/15/18 05:46 Dextrose (Dextrose 50%) 25 ml Q30M PRN IV Hypoglycemia 07/08/18 23:15 08/07/18 23:14 Dextrose (Dextrose 50%) 50 ml Q30M PRN IV Hypoglycemia 07/08/18 23:15 08/07/18 23:14 Diphenhydramine HCl (Benadryl) 25 mg Q6H PRN ORAL Itching/Pruritis 07/08/18 23:15 08/07/18 23:14 07/14/18 22:08 Docusate Sodium (Colace) 100 mg THREE TIMES A DAY ORAL 07/09/18 18:00 08/08/18 17:59 07/15/18 08:18 Doxazosin Mesylate (Cardura) 2 mg TID ORAL 07/14/18 13:00 08/12/18 12:59 07/15/18 08:17 Epoetin Juan Pablo (Procrit (for non ESRD use)) 10,000 units FRI-FRI-FRI SUBQ 07/13/18 21:00 08/12/18 20:59 07/13/18 20:48 Heparin Sodium (Porcine) (Heparin 5000 units/ml) 5,000 units EVERY 12 HOURS SUBQ 07/15/18 21:00 08/14/18 20:59 Hydralazine HCl (Apresoline) 50 mg Q8HR ORAL 07/14/18 22:00 08/11/18 13:59 07/15/18 05:47 Isosorbide Mononitrate (Imdur) 60 mg DAILY ORAL 07/15/18 09:00 08/11/18 08:59 07/15/18 08:16 Minoxidil (Loniten) 2.5 mg Q4H PRN ORAL bp over 165 syst 07/11/18 13:45 08/10/18 13:44 07/14/18 11:28 Pantoprazole (Protonix) 40 mg EVERY 12 HOURS ORAL 07/11/18 21:00 08/10/18 20:59 07/15/18 08:14 Sevelamer Carbonate (Renvela) 2,400 mg THREE TIMES A DAY ORAL 07/14/18 13:00 08/08/18 17:59 07/15/18 08:15 Sodium Citrate (Bicitra) 30 ml EVERY 6 HOURS ORAL 07/12/18 12:00 08/11/18 11:59 07/15/18 05:46 Tamsulosin HCl (Flomax) 0.4 mg BID ORAL 07/10/18 12:53 08/09/18 12:52 07/15/18 08:15 Assessment/Plan Problem List: (1) Cocaine abuse ICD Codes: F14.10 - Cocaine abuse, uncomplicated SNOMED: 23293686 (2) MDD (major depressive disorder) ICD Codes: F32.9 - Major depressive disorder, single episode, unspecified SNOMED: 271363634 (3) Cluster B personality disorder ICD Codes: F60.9 - Personality disorder, unspecified SNOMED: 4951218 Status: stable Assessment/Plan the pt has capacity to refuse meds the pt may leave ama the pt refuses meds the pt refuses dialysis Jakob Trent MD Jul 15, 2018 12:14
--- NOTE | 2018-07-15 12:39 | Nephrology Progress Note ---
Assessment/Plan Problem List: (1) ARF (acute renal failure) (2) Cocaine abuse (3) Acute exacerbation of CHF (congestive heart failure) (4) Hypertensive cardiomegaly with heart failure Assessment Acute on Chronic renal failure Anemia Elevated troponin Hypertensive renal and heart disease Cocaine abuse Cardiomyopathy Plan refused Simpson refuses HD today despite of long discussion with sister yesterday who was agreeable off IV fluid transfuse one unit 07/13 10 mg Zaroxylin today Estiven Skinner, [place] coreg BP control- adjust BP meds up hydralazine attempt to get dialysis consent 2D Echo 55% ej fx BRIDGETT kidneys * Mild fullness of the bilateral renal collecting systems without radiographically appreciable stone and observed bilateral ureteral jets. Findings may be related to mild bladder distention. Consider repeat exam after bladder decompression. monitor renal parameters Avoid nephrotoxics renal diet flomax Subjective ROS Limited/Unobtainable: No Objective Objective Last 24 Hour Vital Signs Date Time Temp Pulse Resp B/P (MAP) Pulse Ox O2 Delivery O2 Flow Rate FiO2 07/15/18 10:58 104 26 97 Nasal Cannula 2.0 07/15/18 10:52 109 22 96 Nasal Cannula 2.0 07/15/18 08:18 110 148/95 07/15/18 08:16 148/95 07/15/18 08:00 108 07/15/18 08:00 98.1 108 21 148/95 (112) 97 07/15/18 07:36 98 20 Nasal Cannula 2.0 28 07/15/18 07:27 Nasal Cannula 2.0 28 07/15/18 07:27 Nasal Cannula 2.0 07/15/18 05:47 141/85 07/15/18 05:46 141/85 07/15/18 04:00 108 07/15/18 04:00 99.0 112 23 141/85 (103) 95 07/15/18 03:28 Nasal Cannula 2.0 07/15/18 03:25 108 24 97 Nasal Cannula 2.0 07/15/18 03:15 110 24 95 Nasal Cannula 2.0 07/15/18 00:00 106 24 97 Nasal Cannula 2.0 07/15/18 00:00 110 07/15/18 00:00 97.0 62 20 120/62 (81) 98 07/14/18 23:51 111 24 95 Nasal Cannula 2.0 28 07/14/18 21:49 142/93 07/14/18 21:37 142/93 07/14/18 21:00 Nasal Cannula 2.0 07/14/18 20:00 112 07/14/18 20:00 97.2 111 20 142/93 (109) 98 07/14/18 19:44 111 24 98 Nasal Cannula 2.0 28 07/14/18 19:33 115 24 96 Nasal Cannula 2.0 28 07/14/18 19:31 113 24 Nasal Cannula 2.0 28 07/14/18 18:20 113 149/99 07/14/18 16:00 96.7 113 24 149/99 (116) 99 07/14/18 15:49 109 07/14/18 14:45 108 22 99 Nasal Cannula 2.0 28 07/14/18 14:36 113 22 94 Nasal Cannula 2.0 28 07/14/18 14:33 156/99 07/14/18 14:32 156/99 Intake and Output 07/14/18 07/15/18 18:59 06:59 Intake Total 890 ml 1270 ml Output Total 1300 ml 1050 ml Balance -410 ml 220 ml Intake Oral 890 ml 550 ml Other 720 ml Output Urine Total 1300 ml 1050 ml # Voids 2 # Bowel Movements 1 Laboratory Tests 07/15/18 05:39: White Blood Count 7.3, Red Blood Count 2.50L, Hemoglobin 8.1L, Hematocrit 24.7L , Mean Corpuscular Volume 99, Mean Corpuscular Hemoglobin 32.6H, Mean Corpuscular Hemoglobin Concent 33.0, Red Cell Distribution Width 14.0, Platelet Count 203, Mean Platelet Volume 6.8, Neutrophils (%) (Auto) 72.4, Lymphocytes (% ) (Auto) 7.2L, Monocytes (%) (Auto) 14.7H, Eosinophils (%) (Auto) 3.7H, Basophils (%) (Auto) 2.0, Prothrombin Time 10.0, Prothromb Time International Ratio 0.9, Activated Partial Thromboplast Time 32, Sodium Level 138, Potassium Level 5.1, Chloride Level 103, Carbon Dioxide Level 20L, Anion Gap 15, Blood Urea Nitrogen 102H, Creatinine 7.7H, Estimat Glomerular Filtration Rate 8.8, Glucose Level 106, Uric Acid 7.0, Calcium Level 8.5, Phosphorus Level 7.0H, Magnesium Level 2.1, Total Bilirubin 0.3, Aspartate Amino Transf (AST/SGOT) 16, Alanine Aminotransferase (ALT/SGPT) 25, Alkaline Phosphatase 95, Troponin I 0.062H, Pro-B-Type Natriuretic Peptide [id number], Total Protein 6.0L, Albumin 2.9L , Globulin 3.1, Albumin/Globulin Ratio 0.9L Height (Feet): 5 Height (Inches): 11.00 Weight (Pounds): 205 General Appearance: no apparent distress, lethargic Cardiovascular: tachycardia Respiratory/Chest: decreased breath sounds Abdomen: distended Objective no change Richar Cm MD Jul 15, 2018 12:39
[2018-07-15] MEDS ORDERED: Carvedilol 12.5mg tab ORAL SCH (12:45)
--- NOTE | 2018-07-15 12:51 | Cardiac Electrophysiology PN ---
Assessment/Plan Assessment/Plan 1. Non-ST elevation myocardial infarction, likely type 2 in the setting of active cocaine use and renal failure. Troponin levels are flat at 0.2, 0.2 and 0.2. Avoid beta-pablo in view of active cocaine use. Use aspirin and Lipitor to his medical regimen. EF 45% 2. Hypertension. On Norvasc 5 mg bid, Hydralazine,Imdur and Clonidine patch. Avoid beta-blockers. Off ARMAND inhibitor and angiotensin-receptor pablo. 3. End-stage renal disease, has not been started on hemodialysis. Cr 8.[address] Cm.Still refusing HD! 4. Substance use with cocaine. Avoid beta-blockers. 5. Recent pneumonia. 6. Congestive heart failure. Echocardiogram EF 45% 7. Severe anemia s/p PRBCs . 8. Nopncomliant, removing the monitor patches. DC tele DW RN Subjective Subjective Diuresing on IV Lasix. No CP or SOB. S/P blood transfusion. Still refusing HD. Removed the telemetry. Objective Last 24 Hour Vital Signs Date Time Temp Pulse Resp B/P (MAP) Pulse Ox O2 Delivery O2 Flow Rate FiO2 07/15/18 12:46 155/82 07/15/18 10:58 104 26 97 Nasal Cannula 2.0 07/15/18 10:52 109 22 96 Nasal Cannula 2.0 07/15/18 08:18 110 148/95 07/15/18 08:16 148/95 07/15/18 08:00 108 07/15/18 08:00 98.1 108 21 148/95 (112) 97 07/15/18 07:36 98 20 Nasal Cannula 2.0 07/15/18 07:27 Nasal Cannula 2.0 07/15/18 07:27 Nasal Cannula 2.0 07/15/18 05:47 141/85 07/15/18 05:46 141/85 07/15/18 04:00 108 07/15/18 04:00 99.0 112 23 141/85 (103) 95 07/15/18 03:28 Nasal Cannula 2.0 07/15/18 03:25 108 24 97 Nasal Cannula 2.0 07/15/18 03:15 110 24 95 Nasal Cannula 2.0 07/15/18 00:00 106 24 97 Nasal Cannula 2.0 28 07/15/18 00:00 110 07/15/18 00:00 97.0 62 20 120/62 (81) 98 07/14/18 23:51 111 24 95 Nasal Cannula 2.0 28 07/14/18 21:49 142/93 07/14/18 21:37 142/93 07/14/18 21:00 Nasal Cannula 2.0 07/14/18 20:00 112 07/14/18 20:00 97.2 111 20 142/93 (109) 98 07/14/18 19:44 111 24 98 Nasal Cannula 2.0 28 07/14/18 19:33 115 24 96 Nasal Cannula 2.0 28 07/14/18 19:31 113 24 Nasal Cannula 2.0 28 07/14/18 18:20 113 149/99 07/14/18 16:00 96.7 113 24 149/99 (116) 99 07/14/18 15:49 109 07/14/18 14:45 108 22 99 Nasal Cannula 2.0 28 07/14/18 14:36 113 22 94 Nasal Cannula 2.0 28 07/14/18 14:33 156/99 07/14/18 14:32 156/99 Intake and Output 07/14/18 07/15/18 18:59 06:59 Intake Total 890 ml 1270 ml Output Total 1300 ml 1050 ml Balance -410 ml 220 ml Intake Oral 890 ml 550 ml Other 720 ml Output Urine Total 1300 ml 1050 ml # Voids 2 # Bowel Movements 1 Laboratory Tests Test 07/15/18 05:39 White Blood Count 7.3 K/UL (4.8-10.8) Red Blood Count 2.50 M/UL (4.70-6.10) L Hemoglobin 8.1 G/DL (14.2-18.0) L Hematocrit 24.7 % (42.0-52.0) L Mean Corpuscular Volume 99 FL (80-99) Mean Corpuscular Hemoglobin 32.6 PG (27.0-31.0) H Mean Corpuscular Hemoglobin Concent 33.0 G/DL (32.0-36.0) Red Cell Distribution Width 14.0 % (11.6-14.8) Platelet Count 203 K/UL (150-450) Mean Platelet Volume 6.8 FL (6.5-10.1) Neutrophils (%) (Auto) 72.4 % (45.0-75.0) Lymphocytes (%) (Auto) 7.2 % (20.0-45.0) L Monocytes (%) (Auto) 14.7 % (1.0-10.0) H Eosinophils (%) (Auto) 3.7 % (0.0-3.0) H Basophils (%) (Auto) 2.0 % (0.0-2.0) Prothrombin Time 10.0 SEC (9.30-11.50) Prothromb Time International Ratio 0.9 (0.9-1.1) Activated Partial Thromboplast Time 32 SEC (23-33) Sodium Level 138 MMOL/L (136-145) Potassium Level 5.1 MMOL/L (3.5-5.1) Chloride Level 103 MMOL/L (98-107) Carbon Dioxide Level 20 MMOL/L (21-32) L Anion Gap 15 mmol/L (5-15) Blood Urea Nitrogen 102 mg/dL (7-18) H Creatinine 7.7 MG/DL (0.55-1.30) H Estimat Glomerular Filtration Rate 8.8 mL/min (>60) Glucose Level 106 MG/DL (74-106) Uric Acid 7.0 MG/DL (2.6-7.2) Calcium Level 8.5 MG/DL (8.5-10.1) Phosphorus Level 7.0 MG/DL (2.5-4.9) H Magnesium Level 2.1 MG/DL (1.8-2.4) Total Bilirubin 0.3 MG/DL (0.2-1.0) Aspartate Amino Transf (AST/SGOT) 16 U/L (15-37) Alanine Aminotransferase (ALT/SGPT) 25 U/L (12-78) Alkaline Phosphatase 95 U/L (46-116) Troponin I 0.062 ng/mL (0.000-0.056) Pro-B-Type Natriuretic Peptide 42595 pg/mL (0-125) H Total Protein 6.0 G/DL (6.4-8.2) L Albumin 2.9 G/DL (3.4-5.0) L Globulin 3.1 g/dL Albumin/Globulin Ratio 0.9 (1.0-2.7) L Objective HEAD AND NECK: No JVD. LUNGS: Decreased breath sounds. CARDIOVASCULAR: Regular S1 and S2 with no gallop or murmur. ABDOMEN: Soft. EXTREMITIES: 1 plus pitting edema. German Gray MD Jul 15, 2018 12:51
[2018-07-15] MEDS ORDERED: Minoxidil 2.5mg tab ORAL PRN (13:45)
[2018-07-15] MEDS: HydrALAZINE 25mg tab ORAL SCH ×2 (15:40→21:49)
[2018-07-15 16:00] VITALS: BP 148/96
[2018-07-15 20:00] VITALS: BP 143/91
[2018-07-15] MEDS: Heparin 5000 units/ml inj SUBQ SCH ×2 (21:00→21:51)
--- NOTE | 2018-07-15 21:49 | General Progress Note ---
Assessment/Plan Assessment/Plan ASSESSMENT AND RECS # Anemia of chronic disease, multifactorial, grace on ckd --> Anemia w/u has been reviewed --> No evidence of hemolysis is noted, peripheral smear has been reviewed. --> Hgb goal >7. Transfuse prn. --> continue on epo # Congestive heart failure with acute decompensated heart failure. --> per cards management --> In tele unit --> on diuresis # Abnormal renal function, likely cardiorenal syndrome. --> Nephrology is following appreciate recs # History of cocaine abuse with current positive tox screen. # Hypertension with hypertensive urgency. # Acute coronary syndrome/non-ST elevation myocardial infarction. GREATLY APPRECIATE CONSULTATION. Date and time note entered does not reflect time and date patient was seen. Subjective HEENT: Denies: no symptoms, eye pain, blurred vision, tearing, double vision, ear pain, ear discharge, nose pain, nose congestion, throat pain, throat swelling, mouth pain, mouth swelling, other Cardiovascular: Denies: no symptoms, chest pain, edema, irregular heart rate, lightheadedness, palpitations, syncope, other Respiratory: Denies: no symptoms, cough, orthopnea, shortness of breath, SOB with excertion, SOB at rest, sputum, stridor, wheezing, other Gastrointestinal/Abdominal: Denies: no symptoms, abdomen distended, abdominal pain, black stools, tarry stools, blood in stool, constipated, diarrhea, difficulty swallowing, nausea, poor appetite, poor fluid intake, rectal bleeding , vomiting, other Genitourinary: Denies: no symptoms, burning, discharge, frequency, flank pain, hematuria, incontinence, pain, urgency, other Neurologic/Psychiatric: Denies: no symptoms, anxiety, depressed, emotional problems, headache, numbness, paresthesia, pre-existing deficit, seizure, tingling, tremors, weakness, other Endocrine: Denies: no symptoms, excessive sweating, flushing, intolerance to cold, intolerance to heat, increased hunger, increased thirst, increased urine, unexplained weight gain, unexplained weight loss, other Hematologic/Lymphatic: Denies: no symptoms, anemia, easy bleeding, easy bruising, other Allergies: Coded Allergies: No Known Allergies (Unverified , 07/08/18) Subjective 07/12: no events, cr trending, h/h stable, on epo 07/14: transfuse one unit 07/13, diruresed, refused mendez, seen by cards, bp better 07/15 : Pt is seen in the room, awake and alert, S/P blood transfusion, refusing HD Objective Last 24 Hour Vital Signs Date Time Temp Pulse Resp B/P (MAP) Pulse Ox O2 Delivery O2 Flow Rate FiO2 07/15/18 20:26 110 22 21 07/15/18 20:26 110 22 91 Room Air 07/15/18 17:28 110 155/82 07/15/18 16:00 97.9 101 20 148/96 (113) 95 07/15/18 16:00 106 07/15/18 15:40 155/82 07/15/18 15:29 Nasal Cannula 2.0 07/15/18 15:29 Nasal Cannula 2.0 07/15/18 12:46 155/82 07/15/18 12:00 98.1 110 20 136/87 (103) 94 07/15/18 10:58 104 26 97 Nasal Cannula 2.0 07/15/18 10:52 109 22 96 Nasal Cannula 2.0 07/15/18 09:00 Nasal Cannula 2.0 07/15/18 08:18 110 148/95 07/15/18 08:16 148/95 07/15/18 08:00 108 07/15/18 08:00 98.1 108 21 148/95 (112) 97 07/15/18 07:36 98 20 Nasal Cannula 2.0 07/15/18 07:27 Nasal Cannula 2.0 07/15/18 07:27 Nasal Cannula 2.0 07/15/18 05:47 141/85 07/15/18 05:46 141/85 07/15/18 04:00 108 07/15/18 04:00 99.0 112 23 141/85 (103) 95 07/15/18 03:28 Nasal Cannula 2.0 07/15/18 03:25 108 24 97 Nasal Cannula 2.0 07/15/18 03:15 110 24 95 Nasal Cannula 2.0 07/15/18 00:00 106 24 97 Nasal Cannula 2.0 07/15/18 00:00 110 07/15/18 00:00 97.0 62 20 120/62 (81) 98 07/14/18 23:51 111 24 95 Nasal Cannula 2.0 28 07/14/18 21:49 142/93 Intake and Output 07/14/18 07/15/18 19:00 07:00 Intake Total 890 ml 1270 ml Output Total 1300 ml 1050 ml Balance -410 ml 220 ml Intake Oral 890 ml 550 ml Other 720 ml Output Urine Total 1300 ml 1050 ml # Voids 2 # Bowel Movements 1 Laboratory Tests 07/15/18 05:39: White Blood Count 7.3, Red Blood Count 2.50L, Hemoglobin 8.1L, Hematocrit 24.7L , Mean Corpuscular Volume 99, Mean Corpuscular Hemoglobin 32.6H, Mean Corpuscular Hemoglobin Concent 33.0, Red Cell Distribution Width 14.0, Platelet Count 203, Mean Platelet Volume 6.8, Neutrophils (%) (Auto) 72.4, Lymphocytes (% ) (Auto) 7.2L, Monocytes (%) (Auto) 14.7H, Eosinophils (%) (Auto) 3.7H, Basophils (%) (Auto) 2.0, Prothrombin Time 10.0, Prothromb Time International Ratio 0.9, Activated Partial Thromboplast Time 32, Sodium Level 138, Potassium Level 5.1, Chloride Level 103, Carbon Dioxide Level 20L, Anion Gap 15, Blood Urea Nitrogen 102H, Creatinine 7.7H, Estimat Glomerular Filtration Rate 8.8, Glucose Level 106, Uric Acid 7.0, Calcium Level 8.5, Phosphorus Level 7.0H, Magnesium Level 2.1, Total Bilirubin 0.3, Aspartate Amino Transf (AST/SGOT) 16, Alanine Aminotransferase (ALT/SGPT) 25, Alkaline Phosphatase 95, Troponin I 0.062H, Pro-B-Type Natriuretic Peptide 08528C, Total Protein 6.0L, Albumin 2.9L , Globulin 3.1, Albumin/Globulin Ratio 0.9L Height (Feet): 5 Height (Inches): 11.00 Weight (Pounds): 205 Shane Mary MD Jul 15, 2018 21:49
[2018-07-15] MEDS: Epogen (for non ESRD use) SUBQ SCH (21:50)
[2018-07-15] MEDS: Carvedilol 12.5mg tab ORAL SCH (22:11)
[2018-07-16] VITALS: BP 145/89
[2018-07-16] MEDS: Sodium Citrate 30ml ORAL SCH ×4 (00:04→18:44)
[2018-07-16] MEDS: Albuterol/Ipratropium 3ml neb HHN SCH ×7 (00:31→23:16)
[2018-07-16 04:00] VITALS: BP 145/77
[2018-07-16] MEDS: HydrALAZINE 25mg tab ORAL SCH ×3 (05:36→22:58)
[2018-07-16] MEDS: cloNIDine 0.2mg Tab ORAL SCH ×3 (05:36→22:58)
[2018-07-16 06:38] LABS: EOSINOPHILS % (AUTO) 5.1 % (0.0-3.0); HEMATOCRIT 24.6 % (42.0-52.0); HEMOGLOBIN 8.2 G/DL (14.2-18.0); LYMPHOCYTES % (AUTO) 8.1 % (20.0-45.0); MEAN CORPUSCULAR VOLUME 97 FL (80-99); MONOCYTES % (AUTO) 13.7 % (1.0-10.0); NEUTROPHILS % (AUTO) 71.1 % (45.0-75.0); PLATELET COUNT 222 K/UL (150-450); RED BLOOD COUNT 2.52 M/UL (4.70-6.10); RED CELL DISTRIBUTION WIDTH 13.2 % (11.6-14.8)
[2018-07-16 07:05] LABS: ALANINE AMINOTRANSFERASE 23 U/L (12-78); ALBUMIN 2.8 G/DL (3.4-5.0); ALBUMIN/GLOBULIN RATIO 0.7 (1.0-2.7); ALKALINE PHOSPHATASE 98 U/L (46-116); ANION GAP 13 mmol/L (5-15); ASPARTATE AMINO TRANSFERASE 16 U/L (15-37); BILIRUBIN,TOTAL 0.2 MG/DL (0.2-1.0); BLOOD UREA NITROGEN 103 mg/dL (7-18); CALCIUM 8.8 MG/DL (8.5-10.1); CARBON DIOXIDE 23 MMOL/L (21-32); CHLORIDE 102 MMOL/L (98-107); CREATININE 7.6 MG/DL (0.55-1.30); PHOSPHORUS 6.2 MG/DL (2.5-4.9); POTASSIUM 4.7 MMOL/L (3.5-5.1); SODIUM 138 MMOL/L (136-145)
[2018-07-16 08:00] VITALS: BP 141/87
[2018-07-16] MEDS: Aspirin Baby 81mg ORAL SCH (08:36)
[2018-07-16] MEDS: Imdur 30mg tab ORAL SCH (08:36)
[2018-07-16] MEDS: Carvedilol 12.5mg tab ORAL SCH ×2 (08:36→21:09)
[2018-07-16] MEDS: Docusate 100mg cap ORAL SCH ×3 (08:38→18:45)
[2018-07-16] MEDS: Allopurinol 100mg Tab ORAL SCH (08:38)
[2018-07-16] MEDS: Tamsulosin 0.4mg cap ORAL SCH ×2 (08:38→18:44)
[2018-07-16] MEDS: Heparin 5000 units/ml inj SUBQ SCH ×3 (08:40→21:10)
--- NOTE | 2018-07-16 10:37 | Cardiac Electrophysiology PN ---
Assessment/Plan Assessment/Plan 1. Non-ST elevation myocardial infarction, likely type 2 in the setting of active cocaine use and renal failure. Troponin levels are flat at 0.2, 0.2 and 0.2. Avoid beta-pablo in view of active cocaine use. Use aspirin and Lipitor to his medical regimen. EF 45% 2. Hypertension. On Norvasc 5 mg bid, Hydralazine,Imdur and Clonidine patch. Avoid beta-blockers. Off ARMAND inhibitor and angiotensin-receptor pablo. 3. End-stage renal disease, has not been started on hemodialysis. Cr 8.[address] Cm.Still debating re HD! 4. Substance use with cocaine. Avoid beta-blockers. 5. Recent pneumonia. 6. Congestive heart failure. Echocardiogram EF 45% 7. Severe anemia s/p PRBCs . 8. Noncompliant, removing the monitor patches. JEANA RN Subjective Subjective No CP or SOB. S/P blood transfusion. Awaiting his sister to make decision re HD. Objective Last 24 Hour Vital Signs Date Time Temp Pulse Resp B/P (MAP) Pulse Ox O2 Delivery O2 Flow Rate FiO2 07/16/18 09:00 Nasal Cannula 2.0 07/16/18 08:39 109 141/87 07/16/18 08:36 109 141/87 07/16/18 08:36 141/87 07/16/18 08:00 111 07/16/18 08:00 97.9 109 21 141/87 (105) 95 07/16/18 07:55 110 22 96 Nasal Cannula 3.0 32 07/16/18 07:43 108 21 95 Nasal Cannula 3.0 32 07/16/18 05:36 145/77 07/16/18 05:36 145/77 07/16/18 04:20 103 24 96 Nasal Cannula 2.0 28 07/16/18 04:00 105 07/16/18 04:00 98.2 83 19 145/77 (99) 94 07/16/18 03:52 105 24 95 Nasal Cannula 2.0 28 07/16/18 00:44 100 24 95 Nasal Cannula 2.0 28 07/16/18 00:39 107 24 96 Nasal Cannula 2.0 28 07/16/18 00:29 101 24 94 Nasal Cannula 2.0 28 07/16/18 00:00 109 07/16/18 00:00 97.7 109 18 145/89 (107) 95 07/15/18 22:11 112 143/89 07/15/18 21:49 143/89 07/15/18 21:49 143/89 07/15/18 21:00 Nasal Cannula 2.0 07/15/18 20:36 114 24 93 Nasal Cannula 2.0 28 07/15/18 20:26 110 22 21 07/15/18 20:26 110 22 91 Room Air 21 07/15/18 20:00 111 07/15/18 20:00 97.0 112 18 143/91 (108) 96 07/15/18 17:28 110 155/82 07/15/18 16:00 97.9 101 20 148/96 (113) 95 07/15/18 16:00 106 07/15/18 15:40 155/82 07/15/18 15:29 Nasal Cannula 2.0 28 07/15/18 15:29 Nasal Cannula 2.0 28 07/15/18 12:46 155/82 07/15/18 12:00 98.1 110 20 136/87 (103) 94 07/15/18 10:58 104 26 97 Nasal Cannula 2.0 28 07/15/18 10:52 109 22 96 Nasal Cannula 2.0 28 Intake and Output 07/15/18 07/16/18 19:00 07:00 Intake Total 700 ml Output Total 1700 ml Balance -1000 ml Intake Oral 700 ml Output Urine Total 1700 ml Laboratory Tests Test 07/16/18 06:00 White Blood Count 7.0 K/UL (4.8-10.8) Red Blood Count 2.52 M/UL (4.70-6.10) L Hemoglobin 8.2 G/DL (14.2-18.0) L Hematocrit 24.6 % (42.0-52.0) L Mean Corpuscular Volume 97 FL (80-99) Mean Corpuscular Hemoglobin 32.4 PG (27.0-31.0) H Mean Corpuscular Hemoglobin Concent 33.2 G/DL (32.0-36.0) Red Cell Distribution Width 13.2 % (11.6-14.8) Platelet Count 222 K/UL (150-450) Mean Platelet Volume 6.9 FL (6.5-10.1) Neutrophils (%) (Auto) 71.1 % (45.0-75.0) Lymphocytes (%) (Auto) 8.1 % (20.0-45.0) L Monocytes (%) (Auto) 13.7 % (1.0-10.0) H Eosinophils (%) (Auto) 5.1 % (0.0-3.0) H Basophils (%) (Auto) 2.0 % (0.0-2.0) Sodium Level 138 MMOL/L (136-145) Potassium Level 4.7 MMOL/L (3.5-5.1) Chloride Level 102 MMOL/L (98-107) Carbon Dioxide Level 23 MMOL/L (21-32) Anion Gap 13 mmol/L (5-15) Blood Urea Nitrogen 103 mg/dL (7-18) H Creatinine 7.6 MG/DL (0.55-1.30) H Estimat Glomerular Filtration Rate 9.0 mL/min (>60) Glucose Level 112 MG/DL (74-106) H Uric Acid 6.9 MG/DL (2.6-7.2) Calcium Level 8.8 MG/DL (8.5-10.1) Phosphorus Level 6.2 MG/DL (2.5-4.9) H Magnesium Level 2.1 MG/DL (1.8-2.4) Total Bilirubin 0.2 MG/DL (0.2-1.0) Aspartate Amino Transf (AST/SGOT) 16 U/L (15-37) Alanine Aminotransferase (ALT/SGPT) 23 U/L (12-78) Alkaline Phosphatase 98 U/L (46-116) Troponin I 0.076 ng/mL (0.000-0.056) C-Reactive Protein, Quantitative 5.1 mg/dL (0.00-0.90) H Pro-B-Type Natriuretic Peptide 54643 pg/mL (0-125) H Total Protein 6.7 G/DL (6.4-8.2) Albumin 2.8 G/DL (3.4-5.0) L Globulin 3.9 g/dL Albumin/Globulin Ratio 0.7 (1.0-2.7) L Objective HEAD AND NECK: No JVD. LUNGS: Decreased breath sounds. CARDIOVASCULAR: Regular S1 and S2 with no gallop or murmur. ABDOMEN: Soft. EXTREMITIES: 1 plus pitting edema. German Gray MD Jul 16, 2018 10:37
[2018-07-16 11:52] VITALS: BP 137/82
--- NOTE | 2018-07-16 13:35 | Nephrology Progress Note ---
Assessment/Plan Problem List: (1) ARF (acute renal failure) (2) Cocaine abuse (3) Acute exacerbation of CHF (congestive heart failure) (4) Hypertensive cardiomegaly with heart failure Assessment Acute on Chronic renal failure Anemia Elevated troponin Hypertensive renal and heart disease Cocaine abuse Cardiomyopathy Plan refused Simpson refuses HD today despite of long discussion with sister 07/14/18who was agreeable off IV fluid transfuse one unit 07/13 10 mg Zaroxylin today Estiven Skinner, Uche coreg BP control- adjust BP meds up hydralazine attempt to get dialysis consent 2D Echo 55% ej fx BRIDGETT kidneys * Mild fullness of the bilateral renal collecting systems without radiographically appreciable stone and observed bilateral ureteral jets. Findings may be related to mild bladder distention. Consider repeat exam after bladder decompression. monitor renal parameters Avoid nephrotoxics renal diet flomax Subjective ROS Limited/Unobtainable: No Constitutional: Reports: malaise Objective Objective Last 24 Hour Vital Signs Date Time Temp Pulse Resp B/P (MAP) Pulse Ox O2 Delivery O2 Flow Rate FiO2 07/16/18 12:00 98 07/16/18 11:52 97.5 100 20 137/82 (100) 95 07/16/18 09:00 Nasal Cannula 2.0 07/16/18 08:39 109 141/87 07/16/18 08:36 109 141/87 07/16/18 08:36 141/87 07/16/18 08:00 111 07/16/18 08:00 97.9 109 21 141/87 (105) 95 07/16/18 07:55 110 22 96 Nasal Cannula 3.0 32 07/16/18 07:43 108 21 95 Nasal Cannula 3.0 32 07/16/18 05:36 145/77 07/16/18 05:36 145/77 07/16/18 04:20 103 24 96 Nasal Cannula 2.0 28 07/16/18 04:00 105 07/16/18 04:00 98.2 83 19 145/77 (99) 94 07/16/18 03:52 105 24 95 Nasal Cannula 2.0 28 07/16/18 00:44 100 24 95 Nasal Cannula 2.0 28 07/16/18 00:39 107 24 96 Nasal Cannula 2.0 28 07/16/18 00:29 101 24 94 Nasal Cannula 2.0 28 07/16/18 00:00 109 07/16/18 00:00 97.7 109 18 145/89 (107) 95 07/15/18 22:11 112 143/89 07/15/18 21:49 143/89 07/15/18 21:49 143/89 07/15/18 21:00 Nasal Cannula 2.0 07/15/18 20:36 114 24 93 Nasal Cannula 2.0 28 07/15/18 20:26 110 22 21 07/15/18 20:26 110 22 91 Room Air 21 07/15/18 20:00 111 07/15/18 20:00 97.0 112 18 143/91 (108) 96 07/15/18 17:28 110 155/82 07/15/18 16:00 97.9 101 20 148/96 (113) 95 07/15/18 16:00 106 07/15/18 15:40 155/82 07/15/18 15:29 Nasal Cannula 2.0 28 07/15/18 15:29 Nasal Cannula 2.0 28 Intake and Output 07/15/18 07/16/18 19:00 07:00 Intake Total 700 ml Output Total 1700 ml Balance -1000 ml Intake Oral 700 ml Output Urine Total 1700 ml Laboratory Tests 07/16/18 06:00: White Blood Count 7.0, Red Blood Count 2.52L, Hemoglobin 8.2L, Hematocrit 24.6L , Mean Corpuscular Volume 97, Mean Corpuscular Hemoglobin 32.4H, Mean Corpuscular Hemoglobin Concent 33.2, Red Cell Distribution Width 13.2, Platelet Count 222, Mean Platelet Volume 6.9, Neutrophils (%) (Auto) 71.1, Lymphocytes (% ) (Auto) 8.1L, Monocytes (%) (Auto) 13.7H, Eosinophils (%) (Auto) 5.1H, Basophils (%) (Auto) 2.0, Sodium Level 138, Potassium Level 4.7, Chloride Level 102, Carbon Dioxide Level 23, Anion Gap 13, Blood Urea Nitrogen 103H, Creatinine 7.6H, Estimat Glomerular Filtration Rate 9.0, Glucose Level 112H, Uric Acid 6.9, Calcium Level 8.8, Phosphorus Level 6.2H, Magnesium Level 2.1, Total Bilirubin 0.2, Aspartate Amino Transf (AST/SGOT) 16, Alanine Aminotransferase (ALT/SGPT) 23, Alkaline Phosphatase 98, Troponin I 0.076H, C- Reactive Protein, Quantitative 5.1H, Pro-B-Type Natriuretic Peptide 12523Y, Total Protein 6.7, Albumin 2.8L, Globulin 3.9, Albumin/Globulin Ratio 0.7L Height (Feet): 5 Height (Inches): 11.00 Weight (Pounds): 210 General Appearance: no apparent distress Objective no change Richar Cm MD Jul 16, 2018 13:35
--- NOTE | 2018-07-16 14:17 | Pulmonology Progress Note ---
Assessment/Plan Problems: (1) Epistaxis (2) Acute exacerbation of CHF (congestive heart failure) (3) Hypertensive cardiomegaly with heart failure (4) ACS (acute coronary syndrome) (5) Cocaine abuse (6) ARF (acute renal failure) Assessment/Plan ASSESSMENT: The patient is a 58-year-old male with history of cocaine and tobacco abuse, congestive heart failure, and renal impairment, presenting with decompensated heart failure and abnormal renal function with marked uremia. He has previously been told he needs dialysis. He is now being admitted for acute coronary syndrome and likely need for dialysis. PROBLEM LIST: 1. Congestive heart failure with acute decompensated heart failure. 2. Abnormal renal function, likely cardiorenal syndrome. 3. History of cocaine abuse with current positive tox screen. 4. Anemia. 5. Hypertension with hypertensive urgency. 6. Acute coronary syndrome/non-ST elevation myocardial infarction. TREATMENT PLAN: -D/C Telemetry -Continue to decline HD -Control BP -F/U cards and renal recs -Cardiac diet -F/U heme recs, needs GI eval at some point but currently unstable for endoscopy -DVT Px: hep SQ -Appreciate psych eval, has capacity, F/U recs -SW assistance in placement Subjective Allergies: Coded Allergies: No Known Allergies (Unverified , 07/08/18) Subjective AFVSS on 2L Refusing HD Seen by psych, has capacity Renal function worse + SOB no cough no wheezing no F/C Objective Last 24 Hour Vital Signs Date Time Temp Pulse Resp B/P (MAP) Pulse Ox O2 Delivery O2 Flow Rate FiO2 07/16/18 12:00 98 07/16/18 11:52 97.5 100 20 137/82 (100) 95 07/16/18 09:00 Nasal Cannula 2.0 07/16/18 08:39 109 141/87 07/16/18 08:36 109 141/87 07/16/18 08:36 141/87 07/16/18 08:00 111 07/16/18 08:00 97.9 109 21 141/87 (105) 95 07/16/18 07:55 110 22 96 Nasal Cannula 3.0 32 07/16/18 07:43 108 21 95 Nasal Cannula 3.0 32 07/16/18 05:36 145/77 07/16/18 05:36 145/77 07/16/18 04:20 103 24 96 Nasal Cannula 2.0 28 07/16/18 04:00 105 07/16/18 04:00 98.2 83 19 145/77 (99) 94 07/16/18 03:52 105 24 95 Nasal Cannula 2.0 28 07/16/18 00:44 100 24 95 Nasal Cannula 2.0 28 07/16/18 00:39 107 24 96 Nasal Cannula 2.0 28 07/16/18 00:29 101 24 94 Nasal Cannula 2.0 28 07/16/18 00:00 109 07/16/18 00:00 97.7 109 18 145/89 (107) 95 07/15/18 22:11 112 143/89 07/15/18 21:49 143/89 07/15/18 21:49 143/89 07/15/18 21:00 Nasal Cannula 2.0 07/15/18 20:36 114 24 93 Nasal Cannula 2.0 28 07/15/18 20:26 110 22 21 07/15/18 20:26 110 22 91 Room Air 07/15/18 20:00 111 07/15/18 20:00 97.0 112 18 143/91 (108) 96 07/15/18 17:28 110 155/82 07/15/18 16:00 97.9 101 20 148/96 (113) 95 07/15/18 16:00 106 07/15/18 15:40 155/82 07/15/18 15:29 Nasal Cannula 2.0 28 07/15/18 15:29 Nasal Cannula 2.0 28 Intake and Output 07/15/18 07/16/18 19:00 07:00 Intake Total 700 ml Output Total 1700 ml Balance -1000 ml Intake Oral 700 ml Output Urine Total 1700 ml General Appearance: no acute distress, cachetic HEENT: normocephalic, atraumatic, anicteric, mucous membranes moist Respiratory/Chest: lungs clear, crackles/rales - at base Cardiovascular: normal peripheral pulses, normal rate, regular rhythm Abdomen: normal bowel sounds, soft, non tender, no organomegaly, non distended , no mass Extremities: no cyanosis, no clubbing, no edema Laboratory Tests 07/16/18 06:00: White Blood Count 7.0, Red Blood Count 2.52L, Hemoglobin 8.2L, Hematocrit 24.6L , Mean Corpuscular Volume 97, Mean Corpuscular Hemoglobin 32.4H, Mean Corpuscular Hemoglobin Concent 33.2, Red Cell Distribution Width 13.2, Platelet Count 222, Mean Platelet Volume 6.9, Neutrophils (%) (Auto) 71.1, Lymphocytes (% ) (Auto) 8.1L, Monocytes (%) (Auto) 13.7H, Eosinophils (%) (Auto) 5.1H, Basophils (%) (Auto) 2.0, Sodium Level 138, Potassium Level 4.7, Chloride Level 102, Carbon Dioxide Level 23, Anion Gap 13, Blood Urea Nitrogen 103H, Creatinine 7.6H, Estimat Glomerular Filtration Rate 9.0, Glucose Level 112H, Uric Acid 6.9, Calcium Level 8.8, Phosphorus Level 6.2H, Magnesium Level 2.1, Total Bilirubin 0.2, Aspartate Amino Transf (AST/SGOT) 16, Alanine Aminotransferase (ALT/SGPT) 23, Alkaline Phosphatase 98, Troponin I 0.076H, C- Reactive Protein, Quantitative 5.1H, Pro-B-Type Natriuretic Peptide 73941A, Total Protein 6.7, Albumin 2.8L, Globulin 3.9, Albumin/Globulin Ratio 0.7L Current Medications Medications (Trade) Dose Ordered Sig/Harish Route PRN Reason Start Time Stop Time Status Last Admin Dose Admin Acetaminophen (Tylenol) 650 mg Q4H PRN ORAL Mild Pain/Temp > 100.5 07/08/18 23:15 08/07/18 23:14 07/11/18 20:02 Acetaminophen/ Hydrocodone Bitart (Polaris 5/325) 1 tab Q4H PRN ORAL Moderate Pain (Pain Scale 4-6) 07/11/18 22:15 07/18/18 22:14 07/13/18 20:55 Albuterol/ Ipratropium (Albuterol/ Ipratropium) 3 ml Q4HRT HHN 07/14/18 11:00 07/19/18 10:59 07/16/18 12:04 Allopurinol (Zyloprim) 200 mg DAILY ORAL 07/16/18 09:00 08/11/18 08:59 07/16/18 08:38 Amlodipine Besylate (Norvasc) 5 mg BID ORAL 07/09/18 18:00 08/09/18 08:59 07/16/18 08:39 Aspirin (ASA) 81 mg DAILY ORAL 07/09/18 09:00 08/08/18 08:59 07/16/18 08:36 Carvedilol (Coreg) 12.5 mg EVERY 12 HOURS ORAL 07/15/18 21:00 08/14/18 20:59 07/16/18 08:36 Clonidine HCl (Catapres tab) 0.2 mg EVERY 8 HOURS ORAL 07/11/18 14:00 08/09/18 13:59 07/16/18 05:36 Dextrose (Dextrose 50%) 25 ml Q30M PRN IV Hypoglycemia 07/08/18 23:15 08/07/18 23:14 Dextrose (Dextrose 50%) 50 ml Q30M PRN IV Hypoglycemia 07/08/18 23:15 08/07/18 23:14 Diphenhydramine HCl (Benadryl) 25 mg Q6H PRN ORAL Itching/Pruritis 07/08/18 23:15 08/07/18 23:14 07/16/18 00:04 Docusate Sodium (Colace) 100 mg THREE TIMES A DAY ORAL 07/09/18 18:00 08/08/18 17:59 07/16/18 12:54 Epoetin Juan Pablo (Procrit (for non ESRD use)) 10,000 units FRI-FRI-FRI SUBQ 07/13/18 21:00 08/12/18 20:59 07/15/18 21:50 Heparin Sodium (Porcine) (Heparin 5000 units/ml) 5,000 units EVERY 12 HOURS SUBQ 07/15/18 21:00 08/14/18 20:59 07/16/18 08:40 Hydralazine HCl (Apresoline) 75 mg Q8HR ORAL 07/15/18 14:00 08/11/18 13:59 07/16/18 05:36 Isosorbide Mononitrate (Imdur) 60 mg DAILY ORAL 07/15/18 09:00 08/11/18 08:59 07/16/18 08:36 Metolazone (Zaroxolyn) 10 mg DAILY ORAL 07/17/18 09:00 08/16/18 08:59 Metolazone (Zaroxolyn) 10 mg ONCE ORAL 07/16/18 14:00 07/16/18 15:00 Minoxidil (Loniten) 5 mg Q4H PRN ORAL bp over 165 syst 07/15/18 13:45 08/10/18 13:44 Pantoprazole (Protonix) 40 mg EVERY 12 HOURS ORAL 07/11/18 21:00 08/10/18 20:59 07/16/18 08:36 Sevelamer Carbonate (Renvela) 2,400 mg THREE TIMES A DAY ORAL 07/14/18 13:00 08/08/18 17:59 07/16/18 12:53 Sodium Citrate (Bicitra) 30 ml EVERY 6 HOURS ORAL 07/12/18 12:00 08/11/18 11:59 07/16/18 12:54 Tamsulosin HCl (Flomax) 0.4 mg BID ORAL 07/10/18 12:53 08/09/18 12:52 07/16/18 08:38 Edgard Webb MD Jul 16, 2018 14:17
[2018-07-16] MEDS: Norco 5mg/325mg tab ORAL PRN (15:16)
[2018-07-16 16:00] VITALS: BP 146/93
[2018-07-16] MEDS: HYDROcodone/Acetamin 10/325 tab ORAL PRN ×2 (18:45→22:57)
[2018-07-16 20:00] VITALS: BP 157/92
--- NOTE | 2018-07-16 23:09 | General Progress Note ---
Assessment/Plan Assessment/Plan ASSESSMENT AND RECS # Anemia of chronic disease, multifactorial, grace on ckd --> Anemia w/u has been reviewed --> No evidence of hemolysis is noted, peripheral smear has been reviewed. --> Hgb goal >7. Transfuse prn. --> continue on epo # Congestive heart failure with acute decompensated heart failure. --> per cards management --> In tele unit --> on diuresis # Abnormal renal function, likely cardiorenal syndrome. --> Nephrology is following appreciate recs # History of cocaine abuse with current positive tox screen. # Hypertension with hypertensive urgency. # Acute coronary syndrome/non-ST elevation myocardial infarction. GREATLY APPRECIATE CONSULTATION. Date and time note entered does not reflect time and date patient was seen. Subjective Constitutional: Denies: no symptoms, chills, diaphoresis, fever, malaise, weakness, other HEENT: Denies: no symptoms, eye pain, blurred vision, tearing, double vision, ear pain, ear discharge, nose pain, nose congestion, throat pain, throat swelling, mouth pain, mouth swelling, other Cardiovascular: Denies: no symptoms, chest pain, edema, irregular heart rate, lightheadedness, palpitations, syncope, other Respiratory: Denies: no symptoms, cough, orthopnea, shortness of breath, SOB with excertion, SOB at rest, sputum, stridor, wheezing, other Gastrointestinal/Abdominal: Denies: no symptoms, abdomen distended, abdominal pain, black stools, tarry stools, blood in stool, constipated, diarrhea, difficulty swallowing, nausea, poor appetite, poor fluid intake, rectal bleeding , vomiting, other Genitourinary: Denies: no symptoms, burning, discharge, frequency, flank pain, hematuria, incontinence, pain, urgency, other Neurologic/Psychiatric: Denies: no symptoms, anxiety, depressed, emotional problems, headache, numbness, paresthesia, pre-existing deficit, seizure, tingling, tremors, weakness, other Endocrine: Denies: no symptoms, excessive sweating, flushing, intolerance to cold, intolerance to heat, increased hunger, increased thirst, increased urine, unexplained weight gain, unexplained weight loss, other Hematologic/Lymphatic: Denies: no symptoms, anemia, easy bleeding, easy bruising, other Allergies: Coded Allergies: No Known Allergies (Unverified , 07/08/18) Subjective 07/12: no events, cr trending, h/h stable, on epo 07/14: transfuse one unit 07/13, diruresed, refused mendez, seen by cards, bp better 07/15 : Pt is seen in the room, awake and alert, S/P blood transfusion, refusing HD 07/16 : Pt is awake and resting in bed. waiting on sister to make HD decision, no events Objective Last 24 Hour Vital Signs Date Time Temp Pulse Resp B/P (MAP) Pulse Ox O2 Delivery O2 Flow Rate FiO2 07/16/18 22:58 155/89 07/16/18 22:58 155/89 07/16/18 21:09 108 157/92 07/16/18 20:07 106 20 94 Nasal Cannula 2.0 28 07/16/18 19:57 105 16 93 Nasal Cannula 2.0 28 07/16/18 18:44 107 146/93 07/16/18 16:00 109 07/16/18 16:00 107 18 96 Nasal Cannula 2.0 28 07/16/18 16:00 97.5 106 19 146/93 (110) 95 07/16/18 15:46 97.5 07/16/18 15:42 105 18 97 Nasal Cannula 3.0 32 07/16/18 14:21 128/83 07/16/18 14:00 128/83 07/16/18 12:20 111 22 99 Nasal Cannula 3.0 32 07/16/18 12:04 110 16 97 Nasal Cannula 3.0 32 07/16/18 12:00 98 07/16/18 11:52 97.5 100 20 137/82 (100) 95 07/16/18 09:00 Nasal Cannula 2.0 07/16/18 08:39 109 141/87 07/16/18 08:36 109 141/87 07/16/18 08:36 141/87 07/16/18 08:00 111 07/16/18 08:00 97.9 109 21 141/87 (105) 95 07/16/18 07:55 110 22 96 Nasal Cannula 3.0 32 07/16/18 07:43 108 21 95 Nasal Cannula 3.0 32 07/16/18 05:36 145/77 07/16/18 05:36 145/77 07/16/18 04:20 103 24 96 Nasal Cannula 2.0 28 07/16/18 04:00 105 07/16/18 04:00 98.2 83 19 145/77 (99) 94 07/16/18 03:52 105 24 95 Nasal Cannula 2.0 28 07/16/18 00:44 100 24 95 Nasal Cannula 2.0 28 07/16/18 00:39 107 24 96 Nasal Cannula 2.0 28 07/16/18 00:29 101 24 94 Nasal Cannula 2.0 28 07/16/18 00:00 109 07/16/18 00:00 97.7 109 18 145/89 (107) 95 Intake and Output 07/15/18 07/16/18 19:00 07:00 Intake Total 700 ml Output Total 1700 ml Balance -1000 ml Intake Oral 700 ml Output Urine Total 1700 ml Laboratory Tests 07/16/18 06:00: White Blood Count 7.0, Red Blood Count 2.52L, Hemoglobin 8.2L, Hematocrit 24.6L , Mean Corpuscular Volume 97, Mean Corpuscular Hemoglobin 32.4H, Mean Corpuscular Hemoglobin Concent 33.2, Red Cell Distribution Width 13.2, Platelet Count 222, Mean Platelet Volume 6.9, Neutrophils (%) (Auto) 71.1, Lymphocytes (% ) (Auto) 8.1L, Monocytes (%) (Auto) 13.7H, Eosinophils (%) (Auto) 5.1H, Basophils (%) (Auto) 2.0, Sodium Level 138, Potassium Level 4.7, Chloride Level 102, Carbon Dioxide Level 23, Anion Gap 13, Blood Urea Nitrogen 103H, Creatinine 7.6H, Estimat Glomerular Filtration Rate 9.0, Glucose Level 112H, Uric Acid 6.9, Calcium Level 8.8, Phosphorus Level 6.2H, Magnesium Level 2.1, Total Bilirubin 0.2, Aspartate Amino Transf (AST/SGOT) 16, Alanine Aminotransferase (ALT/SGPT) 23, Alkaline Phosphatase 98, Troponin I 0.076H, C- Reactive Protein, Quantitative 5.1H, Pro-B-Type Natriuretic Peptide 49208T, Total Protein 6.7, Albumin 2.8L, Globulin 3.9, Albumin/Globulin Ratio 0.7L Height (Feet): 5 Height (Inches): 11.00 Weight (Pounds): 210 Shane Mary MD Jul 16, 2018 23:09
[2018-07-17] VITALS (14 sets, daily range): BP systolic 134–155; BP diastolic 76–101
--- NOTE | 2018-07-17 00:17 | General Progress Note ---
Assessment/Plan Problem List: (1) Cocaine abuse ICD Codes: F14.10 - Cocaine abuse, uncomplicated SNOMED: 88760356 (2) MDD (major depressive disorder) ICD Codes: F32.9 - Major depressive disorder, single episode, unspecified SNOMED: 851405805 (3) Cluster B personality disorder ICD Codes: F60.9 - Personality disorder, unspecified SNOMED: 6353118 Status: stable Assessment/Plan the pt has capacity to refuse meds the pt may leave ama the pt refuses psych meds the pt refuses dialysis Subjective Date patient seen: Jul 16, 2018 Neurologic/Psychiatric: Reports: anxiety, depressed Allergies: Coded Allergies: No Known Allergies (Unverified , 07/08/18) Subjective the pt was educated in regards to hd the pt cont to refuse the pt understands the risks. he has dw family Objective Last 24 Hour Vital Signs Date Time Temp Pulse Resp B/P (MAP) Pulse Ox O2 Delivery O2 Flow Rate FiO2 07/16/18 23:26 110 20 96 Nasal Cannula 2.0 28 07/16/18 23:16 110 20 32 Nasal Cannula 2.0 28 07/16/18 22:58 155/89 07/16/18 22:58 155/89 07/16/18 21:09 108 157/92 07/16/18 21:00 Nasal Cannula 2.0 07/16/18 20:07 106 20 94 Nasal Cannula 2.0 28 07/16/18 19:57 105 16 93 Nasal Cannula 2.0 28 07/16/18 18:44 107 146/93 07/16/18 16:00 109 07/16/18 16:00 107 18 96 Nasal Cannula 2.0 28 07/16/18 16:00 97.5 106 19 146/93 (110) 95 07/16/18 15:46 97.5 07/16/18 15:42 105 18 97 Nasal Cannula 3.0 32 07/16/18 14:21 128/83 07/16/18 14:00 128/83 07/16/18 12:20 111 22 99 Nasal Cannula 3.0 32 07/16/18 12:04 110 16 97 Nasal Cannula 3.0 32 07/16/18 12:00 98 07/16/18 11:52 97.5 100 20 137/82 (100) 95 07/16/18 09:00 Nasal Cannula 2.0 07/16/18 08:39 109 141/87 07/16/18 08:36 109 141/87 07/16/18 08:36 141/87 07/16/18 08:00 111 07/16/18 08:00 97.9 109 21 141/87 (105) 95 07/16/18 07:55 110 22 96 Nasal Cannula 3.0 32 07/16/18 07:43 108 21 95 Nasal Cannula 3.0 32 07/16/18 05:36 145/77 07/16/18 05:36 145/77 07/16/18 04:20 103 24 96 Nasal Cannula 2.0 28 07/16/18 04:00 105 07/16/18 04:00 98.2 83 19 145/77 (99) 94 07/16/18 03:52 105 24 95 Nasal Cannula 2.0 28 07/16/18 00:44 100 24 95 Nasal Cannula 2.0 28 07/16/18 00:39 107 24 96 Nasal Cannula 2.0 28 07/16/18 00:29 101 24 94 Nasal Cannula 2.0 28 Intake and Output 07/16/18 07/17/18 19:00 07:00 Intake Total 800 ml Output Total 625 ml Balance 175 ml Intake Oral 800 ml Output Urine Total 625 ml Laboratory Tests 07/16/18 06:00: White Blood Count 7.0, Red Blood Count 2.52L, Hemoglobin 8.2L, Hematocrit 24.6L , Mean Corpuscular Volume 97, Mean Corpuscular Hemoglobin 32.4H, Mean Corpuscular Hemoglobin Concent 33.2, Red Cell Distribution Width 13.2, Platelet Count 222, Mean Platelet Volume 6.9, Neutrophils (%) (Auto) 71.1, Lymphocytes (% ) (Auto) 8.1L, Monocytes (%) (Auto) 13.7H, Eosinophils (%) (Auto) 5.1H, Basophils (%) (Auto) 2.0, Sodium Level 138, Potassium Level 4.7, Chloride Level 102, Carbon Dioxide Level 23, Anion Gap 13, Blood Urea Nitrogen 103H, Creatinine 7.6H, Estimat Glomerular Filtration Rate 9.0, Glucose Level 112H, Uric Acid 6.9, Calcium Level 8.8, Phosphorus Level 6.2H, Magnesium Level 2.1, Total Bilirubin 0.2, Aspartate Amino Transf (AST/SGOT) 16, Alanine Aminotransferase (ALT/SGPT) 23, Alkaline Phosphatase 98, Troponin I 0.076H, C- Reactive Protein, Quantitative 5.1H, Pro-B-Type Natriuretic Peptide 22355L, Total Protein 6.7, Albumin 2.8L, Globulin 3.9, Albumin/Globulin Ratio 0.7L Height (Feet): 5 Height (Inches): 11.00 Weight (Pounds): 210 General Appearance: no apparent distress, alert Neurologic: oriented x 3, responsive Jakob Trent MD Jul 17, 2018 00:17
[2018-07-17] MEDS: Sodium Citrate 30ml ORAL SCH ×4 (00:33→17:28)
[2018-07-17] MEDS: Albuterol/Ipratropium 3ml neb HHN SCH ×6 (02:00→19:49)
[2018-07-17] MEDS: HYDROcodone/Acetamin 10/325 tab ORAL PRN ×5 (04:29→23:19)
[2018-07-17] MEDS: HydrALAZINE 25mg tab ORAL SCH ×3 (06:04→22:21)
[2018-07-17] MEDS: cloNIDine 0.2mg Tab ORAL SCH ×3 (06:04→22:22)
[2018-07-17] MEDS: Heparin 5000 units/ml inj SUBQ SCH ×3 (09:00→22:31)
[2018-07-17] MEDS: Aspirin Baby 81mg ORAL SCH (09:00)
[2018-07-17] MEDS: Docusate 100mg cap ORAL SCH ×3 (10:32→17:28)
[2018-07-17] MEDS: Imdur 30mg tab ORAL SCH (10:32)
[2018-07-17] MEDS: Allopurinol 100mg Tab ORAL SCH (10:33)
[2018-07-17] MEDS: Tamsulosin 0.4mg cap ORAL SCH ×2 (10:33→17:28)
[2018-07-17] MEDS: Carvedilol 12.5mg tab ORAL SCH (10:33)
[2018-07-17] MEDS ORDERED: Heparin Sod 1000 units/ml 10ml INJ SCH (12:15)
[2018-07-17] MEDS ORDERED: Heparin 2000 units/Ns 1000ml INJ SCH (12:15)
[2018-07-17] MEDS ORDERED: Lidocaine 2% 20mg/ml/Epi 0.005mg/ml 20ml vial INJ SCH (12:15)
--- NOTE | 2018-07-17 13:17 | Pre-Procedure Note/Attestation ---
Pre-Procedure Note/Attestation Complete Prior to Procedure Planned Procedure: right Procedure Narrative: right jugular permacath placement for renal failure, requirement of hemodialysis Indications for Procedure Pre-Operative Diagnosis: renal failure Attestation I attest that I discussed the nature of the procedure; its benefits; risks and complications; and alternatives (and the risks and benefits of such alternatives ), prior to the procedure, with the patient (or the patient's legal liability claims representative). I attest that, if there was a reasonable possibility of needing a blood transfusion, the patient (or the patient's legal liability claims representative) was given the [facility] standardized written summary, pursuant to the Jarvis Nguyen Blood Safety Act ([place] Health and Safety Code # 1645, as amended). I attest that I re-evaluated the patient just prior to the surgery and that there has been no change in the patient's H&P, except as documented below: Hemanth Gomes MD Jul 17, 2018 13:17
--- NOTE | 2018-07-17 13:26 | Nephrology Progress Note ---
Assessment/Plan Problem List: (1) ARF (acute renal failure) (2) Cocaine abuse (3) Acute exacerbation of CHF (congestive heart failure) (4) Hypertensive cardiomegaly with heart failure Assessment Acute on Chronic renal failure Anemia Elevated troponin Hypertensive renal and heart disease Cocaine abuse Cardiomyopathy Plan appears to be agreeable for placement of dialysis cath and dialysis now ! orders given transfuse one unit 07/13 10 mg Zaroxylin today Dc Cardura, Add coreg BP control- adjust BP meds up hydralazine attempt to get dialysis consent 2D Echo 55% ej fx BRIDGETT kidneys * Mild fullness of the bilateral renal collecting systems without radiographically appreciable stone and observed bilateral ureteral jets. Findings may be related to mild bladder distention. Consider repeat exam after bladder decompression. monitor renal parameters Avoid nephrotoxics renal diet flomax Subjective ROS Limited/Unobtainable: No Constitutional: Reports: malaise Objective Objective Last 24 Hour Vital Signs Date Time Temp Pulse Resp B/P (MAP) Pulse Ox O2 Delivery O2 Flow Rate FiO2 07/17/18 12:33 102 22 4.0 07/17/18 12:00 98.4 100 20 141/87 (105) 94 07/17/18 10:33 99 134/83 07/17/18 10:32 134/83 07/17/18 10:31 99 134/83 07/17/18 09:37 99 18 97 Nasal Cannula 2.0 28 07/17/18 09:27 104 20 92 Nasal Cannula 2.0 28 07/17/18 09:00 Nasal Cannula 2.0 07/17/18 08:00 111 07/17/18 08:00 98.1 83 20 134/83 (100) 95 07/17/18 06:04 158/95 07/17/18 06:04 158/95 07/17/18 04:00 105 07/17/18 04:00 99.0 104 18 143/85 (104) 98 07/17/18 02:08 105 18 95 Nasal Cannula 2.0 28 07/17/18 02:00 105 20 93 Nasal Cannula 2.0 28 07/17/18 00:00 110 07/17/18 00:00 98.6 110 20 155/89 (111) 95 07/16/18 23:26 110 20 96 Nasal Cannula 2.0 28 07/16/18 23:16 110 20 92 Nasal Cannula 2.0 28 07/16/18 22:58 155/89 07/16/18 22:58 155/89 07/16/18 21:09 108 157/92 07/16/18 21:00 Nasal Cannula 2.0 07/16/18 20:07 106 20 94 Nasal Cannula 2.0 28 07/16/18 20:00 108 07/16/18 20:00 98.1 108 19 157/92 (113) 93 07/16/18 19:57 105 16 93 Nasal Cannula 2.0 28 07/16/18 18:44 107 146/93 07/16/18 16:00 109 07/16/18 16:00 107 18 96 Nasal Cannula 2.0 28 07/16/18 16:00 97.5 106 19 146/93 (110) 95 07/16/18 15:46 97.5 07/16/18 15:42 105 18 97 Nasal Cannula 3.0 32 07/16/18 14:21 128/83 07/16/18 14:00 128/83 Intake and Output 07/16/18 07/17/18 19:00 07:00 Intake Total 800 ml Output Total 625 ml 700 ml Balance 175 ml -700 ml Intake Oral 800 ml Output Urine Total 625 ml 700 ml Height (Feet): 5 Height (Inches): 11.00 Weight (Pounds): 214 General Appearance: no apparent distress Objective no change Richar Cm MD Jul 17, 2018 13:26
--- NOTE | 2018-07-17 14:19 | Cardiac Electrophysiology PN ---
Assessment/Plan Assessment/Plan 1. Non-ST elevation myocardial infarction, likely type 2 in the setting of active cocaine use and renal failure. Troponin levels are flat at 0.2, 0.2 and 0.2. Avoid beta-pablo in view of active cocaine use. On aspirin and Lipitor EF 45% 2. Hypertension. On Norvasc 5 mg bid, Hydralazine,Imdur and Clonidine patch. Avoid beta-blockers for active cocaine use Off ARMAND inhibitor and angiotensin-receptor pablo. 3. End-stage renal disease, has not been started on hemodialysis. Cr 8.9 Just got his dialysis catheter. HD by Dr. Cm pending 4. Substance use with cocaine. Avoid beta-blockers. 5. Recent pneumonia. 6. Congestive heart failure. Echocardiogram EF 45% 7. Severe anemia s/p PRBCs . 8. Noncompliant, removing the monitor patches.Off tele DW RN Subjective Subjective No CP or SOB. OFF tle as refusing the monitor. Objective Last 24 Hour Vital Signs Date Time Temp Pulse Resp B/P (MAP) Pulse Ox O2 Delivery O2 Flow Rate FiO2 07/17/18 13:50 103 22 143/101 (115) 93 07/17/18 13:45 102 22 141/98 (112) 93 07/17/18 13:40 103 22 150/95 (113) 93 07/17/18 13:35 102 22 148/96 (113) 93 07/17/18 13:30 102 22 150/100 (117) 95 07/17/18 13:25 101 22 151/98 (115) 97 07/17/18 12:33 102 22 4.0 07/17/18 12:00 98.4 100 20 141/87 (105) 94 07/17/18 10:33 99 134/83 07/17/18 10:32 134/83 07/17/18 10:31 99 134/83 07/17/18 09:37 99 18 97 Nasal Cannula 2.0 28 07/17/18 09:27 104 20 92 Nasal Cannula 2.0 28 07/17/18 09:00 Nasal Cannula 2.0 07/17/18 08:00 111 07/17/18 08:00 98.1 83 20 134/83 (100) 95 07/17/18 06:04 158/95 07/17/18 06:04 158/95 07/17/18 04:00 105 07/17/18 04:00 99.0 104 18 143/85 (104) 98 07/17/18 02:08 105 18 95 Nasal Cannula 2.0 28 07/17/18 02:00 105 20 93 Nasal Cannula 2.0 28 07/17/18 00:00 110 07/17/18 00:00 98.6 110 20 155/89 (111) 95 07/16/18 23:26 110 20 96 Nasal Cannula 2.0 28 07/16/18 23:16 110 20 92 Nasal Cannula 2.0 28 07/16/18 22:58 155/89 07/16/18 22:58 155/89 07/16/18 21:09 108 157/92 07/16/18 21:00 Nasal Cannula 2.0 07/16/18 20:07 106 20 94 Nasal Cannula 2.0 28 07/16/18 20:00 108 07/16/18 20:00 98.1 108 19 157/92 (113) 93 07/16/18 19:57 105 16 93 Nasal Cannula 2.0 28 07/16/18 18:44 107 146/93 07/16/18 16:00 109 07/16/18 16:00 107 18 96 Nasal Cannula 2.0 28 07/16/18 16:00 97.5 106 19 146/93 (110) 95 07/16/18 15:46 97.5 07/16/18 15:42 105 18 97 Nasal Cannula 3.0 32 07/16/18 14:21 128/83 Intake and Output 07/16/18 07/17/18 19:00 07:00 Intake Total 800 ml Output Total 625 ml 700 ml Balance 175 ml -700 ml Intake Oral 800 ml Output Urine Total 625 ml 700 ml Objective HEAD AND NECK: No JVD. LUNGS: Decreased breath sounds. CARDIOVASCULAR: Regular S1 and S2 with no gallop or murmur. ABDOMEN: Soft. EXTREMITIES: 1 plus pitting edema. German Gray MD Jul 17, 2018 14:19
--- NOTE | 2018-07-17 17:58 | Pulmonology Progress Note ---
Assessment/Plan Problems: (1) Epistaxis (2) Acute exacerbation of CHF (congestive heart failure) (3) Hypertensive cardiomegaly with heart failure (4) ACS (acute coronary syndrome) (5) Cocaine abuse (6) ARF (acute renal failure) Assessment/Plan ASSESSMENT: The patient is a 58-year-old male with history of cocaine and tobacco abuse, congestive heart failure, and renal impairment, presenting with decompensated heart failure and abnormal renal function with marked uremia. He has previously been told he needs dialysis. He is now being admitted for acute coronary syndrome and likely need for dialysis. PROBLEM LIST: 1. Congestive heart failure with acute decompensated heart failure. 2. Abnormal renal function, likely cardiorenal syndrome. 3. History of cocaine abuse with current positive tox screen. 4. Anemia. 5. Hypertension with hypertensive urgency. 6. Acute coronary syndrome/non-ST elevation myocardial infarction. TREATMENT PLAN: -HD per renal - to start this evening -Control BP -F/U cards and renal recs -Cardiac diet -F/U heme recs, needs GI eval at some point but currently unstable for endoscopy -DVT Px: hep SQ -Pain control/supportive care -Appreciate psych eval, has capacity, F/U recs -SW assistance in placement Subjective Allergies: Coded Allergies: No Known Allergies (Unverified , 07/08/18) Subjective AFVSS on 2L S/P HD cath, awaiting start of HD Feels swollen + chronic back pain, feels muscles are tight No SOB, no CP, no F/C Objective Last 24 Hour Vital Signs Date Time Temp Pulse Resp B/P (MAP) Pulse Ox O2 Delivery O2 Flow Rate FiO2 07/17/18 17:28 104 148/95 07/17/18 16:00 97.5 104 20 148/95 (112) 94 07/17/18 15:26 98.4 07/17/18 15:07 98 18 97 Nasal Cannula 2.0 28 07/17/18 14:59 98 20 95 Nasal Cannula 2.0 28 07/17/18 14:56 147/99 07/17/18 14:56 147/99 07/17/18 14:54 104 147/99 (115) 07/17/18 13:50 103 22 143/101 (115) 93 07/17/18 13:45 102 22 141/98 (112) 93 07/17/18 13:40 103 22 150/95 (113) 93 07/17/18 13:35 102 22 148/96 (113) 93 07/17/18 13:30 102 22 150/100 (117) 95 07/17/18 13:25 101 22 151/98 (115) 97 07/17/18 12:33 102 22 4.0 07/17/18 12:00 98.4 100 20 141/87 (105) 94 07/17/18 10:33 99 134/83 07/17/18 10:32 134/83 07/17/18 10:31 99 134/83 07/17/18 09:37 99 18 97 Nasal Cannula 2.0 28 07/17/18 09:27 104 20 92 Nasal Cannula 2.0 28 07/17/18 09:00 Nasal Cannula 2.0 07/17/18 08:00 111 07/17/18 08:00 98.1 83 20 134/83 (100) 95 07/17/18 06:04 158/95 07/17/18 06:04 158/95 07/17/18 04:00 105 07/17/18 04:00 99.0 104 18 143/85 (104) 98 07/17/18 02:08 105 18 95 Nasal Cannula 2.0 28 07/17/18 02:00 105 20 93 Nasal Cannula 2.0 28 07/17/18 00:00 110 07/17/18 00:00 98.6 110 20 155/89 (111) 95 07/16/18 23:26 110 20 96 Nasal Cannula 2.0 28 07/16/18 23:16 110 20 92 Nasal Cannula 2.0 28 07/16/18 22:58 155/89 07/16/18 22:58 155/89 07/16/18 21:09 108 157/92 07/16/18 21:00 Nasal Cannula 2.0 07/16/18 20:07 106 20 94 Nasal Cannula 2.0 28 07/16/18 20:00 108 07/16/18 20:00 98.1 108 19 157/92 (113) 93 07/16/18 19:57 105 16 93 Nasal Cannula 2.0 28 07/16/18 18:44 107 146/93 Intake and Output 07/16/18 07/17/18 19:00 07:00 Intake Total 800 ml Output Total 625 ml 700 ml Balance 175 ml -700 ml Intake Oral 800 ml Output Urine Total 625 ml 700 ml General Appearance: no acute distress, cachetic HEENT: normocephalic, atraumatic, anicteric, mucous membranes moist Respiratory/Chest: chest wall non-tender, lungs clear, normal breath sounds, crackles/rales - BiB, other - HD cath Cardiovascular: normal peripheral pulses, normal rate, regular rhythm Abdomen: normal bowel sounds, soft, non tender, no organomegaly, non distended , no mass Extremities: no cyanosis, no clubbing, other - 1+ edema x 4 Laboratory Tests 07/17/18 17:40: Hepatitis B Surface Antigen [Pending], Hepatitis B Surface Antibody, Quant [ Pending], Hepatitis C Antibody [Pending] Current Medications Medications (Trade) Dose Ordered Sig/Harish Route PRN Reason Start Time Stop Time Status Last Admin Dose Admin Acetaminophen (Tylenol) 650 mg Q4H PRN ORAL Mild Pain/Temp > 100.5 07/08/18 23:15 08/07/18 23:14 07/17/18 06:04 Acetaminophen/ Hydrocodone Bitart ([place] 10/325) 1 tab Q4H PRN ORAL Severe Pain (Pain Scale 7-10) 07/16/18 18:45 07/23/18 18:44 07/17/18 14:56 Albuterol/ Ipratropium (Albuterol/ Ipratropium) 3 ml Q4HRT HHN 07/14/18 11:00 07/19/18 10:59 07/17/18 15:00 Allopurinol (Zyloprim) 200 mg DAILY ORAL 07/16/18 09:00 08/11/18 08:59 07/17/18 10:33 Amlodipine Besylate (Norvasc) 5 mg BID ORAL 07/09/18 18:00 08/09/18 08:59 07/17/18 17:28 Aspirin (ASA) 81 mg DAILY ORAL 07/09/18 09:00 08/08/18 08:59 07/16/18 08:36 Clonidine HCl (Catapres tab) 0.2 mg EVERY 8 HOURS ORAL 07/11/18 14:00 08/09/18 13:59 07/17/18 14:56 Dextrose (Dextrose 50%) 25 ml Q30M PRN IV Hypoglycemia 07/08/18 23:15 08/07/18 23:14 Dextrose (Dextrose 50%) 50 ml Q30M PRN IV Hypoglycemia 07/08/18 23:15 08/07/18 23:14 Diphenhydramine HCl (Benadryl) 25 mg Q6H PRN ORAL Itching/Pruritis 07/08/18 23:15 08/07/18 23:14 07/16/18 22:57 Docusate Sodium (Colace) 100 mg THREE TIMES A DAY ORAL 07/09/18 18:00 08/08/18 17:59 07/17/18 17:28 Epoetin Juan Pablo (Procrit (for non ESRD use)) 10,000 units FRI-FRI-FRI SUBQ 07/13/18 21:00 08/12/18 20:59 07/15/18 21:50 Heparin Sodium (Porcine) (Heparin 5000 units/ml) 5,000 units EVERY 12 HOURS SUBQ 07/15/18 21:00 08/14/18 20:59 07/16/18 08:40 Heparin Sodium (Porcine) (Heparin Sod 1000 units/ml 10ml) 2,000 unit ONCE INJ 07/17/18 12:15 07/19/18 12:14 Heparin Sodium/ Sodium Chloride (Heparin 2000 units/Ns 1000ml premix) 2,000 unit ONCE INJ 07/17/18 12:15 07/19/18 12:14 Hydralazine HCl (Apresoline) 75 mg Q8HR ORAL 07/15/18 14:00 08/11/18 13:59 07/17/18 14:56 Isosorbide Mononitrate (Imdur) 60 mg DAILY ORAL 07/15/18 09:00 08/11/18 08:59 07/17/18 10:32 Lidocaine/ Epinephrine (Xylocaine 2%/ Epi MPF) 40 ml ONCE INJ 07/17/18 12:15 07/19/18 12:14 Metolazone (Zaroxolyn) 10 mg DAILY ORAL 07/17/18 09:00 08/16/18 08:59 07/17/18 10:41 Minoxidil (Loniten) 5 mg Q4H PRN ORAL bp over 165 syst 07/15/18 13:45 08/10/18 13:44 Pantoprazole (Protonix) 40 mg EVERY 12 HOURS ORAL 07/11/18 21:00 08/10/18 20:59 07/17/18 10:33 Sevelamer Carbonate (Renvela) 2,400 mg THREE TIMES A DAY ORAL 07/14/18 13:00 08/08/18 17:59 07/17/18 17:28 Sodium Citrate (Bicitra) 30 ml EVERY 6 HOURS ORAL 07/12/18 12:00 08/11/18 11:59 07/17/18 17:28 Tamsulosin HCl (Flomax) 0.4 mg BID ORAL 07/10/18 12:53 08/09/18 12:52 07/17/18 17:28 Edgard Webb MD Jul 17, 2018 17:58
[2018-07-17] MEDS ORDERED: Cyclobenzaprine 10mg Tab ORAL PRN (18:00)
[2018-07-17] MEDS ORDERED: Heparin 2000 units/Ns 1000ml INJ ONE (21:00)
[2018-07-17] MEDS ORDERED: Heparin Sod 1000 units/ml 10ml INJ ONE (21:00)
[2018-07-17] MEDS ORDERED: Lidocaine 2% 20mg/ml/Epi 0.005mg/ml 20ml vial INJ ONE (21:00)
[2018-07-17] MEDS ORDERED: Minoxidil 2.5mg tab ORAL PRN (21:45)
--- NOTE | 2018-07-17 22:11 | General Progress Note ---
Assessment/Plan Problem List: (1) Cocaine abuse ICD Codes: F14.10 - Cocaine abuse, uncomplicated SNOMED: 10375601 (2) MDD (major depressive disorder) ICD Codes: F32.9 - Major depressive disorder, single episode, unspecified SNOMED: 593267534 (3) Cluster B personality disorder ICD Codes: F60.9 - Personality disorder, unspecified SNOMED: 9723692 Status: unchanged Assessment/Plan the pt has capacity to refuse meds the pt may leave ama the pt refuses psych meds the pt refuses dialysis Subjective Neurologic/Psychiatric: Reports: anxiety, depressed Allergies: Coded Allergies: No Known Allergies (Unverified , 07/08/18) Subjective the pt is irritable. inappropriate outburst of anger. rude to staff. borderline personality. ambivalent about hd Objective Last 24 Hour Vital Signs Date Time Temp Pulse Resp B/P (MAP) Pulse Ox O2 Delivery O2 Flow Rate FiO2 07/17/18 21:00 Nasal Cannula 2.0 07/17/18 20:00 98.3 100 18 135/76 (95) 94 07/17/18 19:58 101 20 97 Nasal Cannula 2.0 28 07/17/18 19:47 100 20 97 Nasal Cannula 2.0 28 07/17/18 17:28 104 148/95 07/17/18 16:00 97.5 104 20 148/95 (112) 94 07/17/18 15:26 98.4 07/17/18 15:07 98 18 97 Nasal Cannula 2.0 28 07/17/18 14:59 98 20 95 Nasal Cannula 2.0 28 07/17/18 14:56 147/99 07/17/18 14:56 147/99 07/17/18 14:54 104 147/99 (115) 07/17/18 13:50 103 22 143/101 (115) 93 07/17/18 13:45 102 22 141/98 (112) 93 07/17/18 13:40 103 22 150/95 (113) 93 07/17/18 13:35 102 22 148/96 (113) 93 07/17/18 13:30 102 22 150/100 (117) 95 07/17/18 13:25 101 22 151/98 (115) 97 07/17/18 12:33 102 22 4.0 07/17/18 12:00 98.4 100 20 141/87 (105) 94 07/17/18 10:33 99 134/83 07/17/18 10:32 134/83 07/17/18 10:31 99 134/83 07/17/18 09:37 99 18 97 Nasal Cannula 2.0 28 07/17/18 09:27 104 20 92 Nasal Cannula 2.0 28 07/17/18 09:00 Nasal Cannula 2.0 07/17/18 08:00 111 07/17/18 08:00 98.1 83 20 134/83 (100) 95 07/17/18 06:04 158/95 07/17/18 06:04 158/95 07/17/18 04:00 105 07/17/18 04:00 99.0 104 18 143/85 (104) 98 07/17/18 02:08 105 18 95 Nasal Cannula 2.0 28 07/17/18 02:00 105 20 93 Nasal Cannula 2.0 28 07/17/18 00:00 110 07/17/18 00:00 98.6 110 20 155/89 (111) 95 07/16/18 23:26 110 20 96 Nasal Cannula 2.0 28 07/16/18 23:16 110 20 92 Nasal Cannula 2.0 28 07/16/18 22:58 155/89 07/16/18 22:58 155/89 Intake and Output 07/16/18 07/17/18 18:59 06:59 Intake Total 800 ml Output Total 625 ml 700 ml Balance 175 ml -700 ml Intake Oral 800 ml Output Urine Total 625 ml 700 ml Laboratory Tests 07/17/18 17:40: Hepatitis B Surface Antigen [Pending], Hepatitis B Surface Antibody, Quant [ Pending], Hepatitis C Antibody [Pending] Height (Feet): 5 Height (Inches): 11.00 Weight (Pounds): 214 General Appearance: alert, agitated Neurologic: oriented x 3, responsive, depressed affect Jakob Trent MD Jul 17, 2018 22:11
[2018-07-17] MEDS: Epogen (for non ESRD use) SUBQ SCH (22:30)
--- NOTE | 2018-07-17 23:00 | General Progress Note ---
Assessment/Plan Assessment/Plan ASSESSMENT AND RECS # Anemia of chronic disease, multifactorial, grace on ckd --> Anemia w/u has been reviewed --> No evidence of hemolysis is noted, peripheral smear has been reviewed. --> Hgb goal >7. Transfuse prn. --> continue on epo # Congestive heart failure with acute decompensated heart failure. --> per cards management --> In tele unit --> on diuresis # Abnormal renal function, likely cardiorenal syndrome. --> Nephrology is following appreciate recs # History of cocaine abuse with current positive tox screen. # Hypertension with hypertensive urgency. --> On Norvasc 5 mg bid, Hydralazine,Imdur and Clonidine patch. Avoid beta-blockers for active cocaine use Off ARMAND inhibitor and angiotensin-receptor pablo. # Acute coronary syndrome/non-ST elevation myocardial infarction. GREATLY APPRECIATE CONSULTATION. Date and time note entered does not reflect time and date patient was seen. Subjective Constitutional: Denies: no symptoms, chills, diaphoresis, fever, malaise, weakness, other HEENT: Denies: no symptoms, eye pain, blurred vision, tearing, double vision, ear pain, ear discharge, nose pain, nose congestion, throat pain, throat swelling, mouth pain, mouth swelling, other Cardiovascular: Denies: no symptoms, chest pain, edema, irregular heart rate, lightheadedness, palpitations, syncope, other Respiratory: Denies: no symptoms, cough, orthopnea, shortness of breath, SOB with excertion, SOB at rest, sputum, stridor, wheezing, other Gastrointestinal/Abdominal: Denies: no symptoms, abdomen distended, abdominal pain, black stools, tarry stools, blood in stool, constipated, diarrhea, difficulty swallowing, nausea, poor appetite, poor fluid intake, rectal bleeding , vomiting, other Genitourinary: Denies: no symptoms, burning, discharge, frequency, flank pain, hematuria, incontinence, pain, urgency, other Neurologic/Psychiatric: Denies: no symptoms, anxiety, depressed, emotional problems, headache, numbness, paresthesia, pre-existing deficit, seizure, tingling, tremors, weakness, other Endocrine: Denies: no symptoms, excessive sweating, flushing, intolerance to cold, intolerance to heat, increased hunger, increased thirst, increased urine, unexplained weight gain, unexplained weight loss, other Hematologic/Lymphatic: Denies: no symptoms, anemia, easy bleeding, easy bruising, other Allergies: Coded Allergies: No Known Allergies (Unverified , 07/08/18) Subjective 07/12: no events, cr trending, h/h stable, on epo 07/14: transfuse one unit 07/13, diruresed, refused mendez, seen by cards, bp better 07/15 : Pt is seen in the room, awake and alert, S/P blood transfusion, refusing HD 07/16 : Pt is awake and resting in bed. waiting on sister to make HD decision, no events 07/17 Pt is seen in the room,awake and alert, appears to be agreeable for placement of dialysis cath and dialysis . Objective Last 24 Hour Vital Signs Date Time Temp Pulse Resp B/P (MAP) Pulse Ox O2 Delivery O2 Flow Rate FiO2 07/17/18 22:22 147/86 07/17/18 22:21 147/86 07/17/18 21:00 Nasal Cannula 2.0 07/17/18 20:00 98.3 100 18 135/76 (95) 94 07/17/18 19:58 101 20 97 Nasal Cannula 2.0 28 07/17/18 19:47 100 20 97 Nasal Cannula 2.0 28 07/17/18 17:28 104 148/95 07/17/18 16:00 97.5 104 20 148/95 (112) 94 07/17/18 15:26 98.4 07/17/18 15:07 98 18 97 Nasal Cannula 2.0 28 07/17/18 14:59 98 20 95 Nasal Cannula 2.0 28 07/17/18 14:56 147/99 07/17/18 14:56 147/99 07/17/18 14:54 104 147/99 (115) 07/17/18 13:50 103 22 143/101 (115) 93 07/17/18 13:45 102 22 141/98 (112) 93 07/17/18 13:40 103 22 150/95 (113) 93 07/17/18 13:35 102 22 148/96 (113) 93 07/17/18 13:30 102 22 150/100 (117) 95 07/17/18 13:25 101 22 151/98 (115) 97 07/17/18 12:33 102 22 4.0 07/17/18 12:00 98.4 100 20 141/87 (105) 94 07/17/18 10:33 99 134/83 07/17/18 10:32 134/83 07/17/18 10:31 99 134/83 07/17/18 09:37 99 18 97 Nasal Cannula 2.0 28 07/17/18 09:27 104 20 92 Nasal Cannula 2.0 28 07/17/18 09:00 Nasal Cannula 2.0 07/17/18 08:00 111 07/17/18 08:00 98.1 83 20 134/83 (100) 95 07/17/18 06:04 158/95 07/17/18 06:04 158/95 07/17/18 04:00 105 07/17/18 04:00 99.0 104 18 143/85 (104) 98 07/17/18 02:08 105 18 95 Nasal Cannula 2.0 28 07/17/18 02:00 105 20 93 Nasal Cannula 2.0 28 07/17/18 00:00 110 07/17/18 00:00 98.6 110 20 155/89 (111) 95 07/16/18 23:26 110 20 96 Nasal Cannula 2.0 28 07/16/18 23:16 110 20 92 Nasal Cannula 2.0 28 07/16/18 22:58 155/89 07/16/18 22:58 155/89 Intake and Output 07/16/18 07/17/18 18:59 06:59 Intake Total 800 ml Output Total 625 ml 700 ml Balance 175 ml -700 ml Intake Oral 800 ml Output Urine Total 625 ml 700 ml Laboratory Tests 07/17/18 17:40: Hepatitis B Surface Antigen [Pending], Hepatitis B Surface Antibody, Quant [ Pending], Hepatitis C Antibody [Pending] Height (Feet): 5 Height (Inches): 11.00 Weight (Pounds): 214 Shane Mary MD Jul 17, 2018 23:00
[2018-07-18] VITALS: BP 147/96
[2018-07-18] MEDS: Sodium Citrate 30ml ORAL SCH ×3 (00:13→12:24)
[2018-07-18] MEDS: Albuterol/Ipratropium 3ml neb HHN SCH ×7 (00:18→23:46)
[2018-07-18] MEDS: HYDROcodone/Acetamin 10/325 tab ORAL PRN ×4 (03:23→20:55)
[2018-07-18 04:00] VITALS: BP 134/76
[2018-07-18 05:40] LABS: BASOPHILS % (AUTO) 2.1 % (0.0-2.0); EOSINOPHILS % (AUTO) 2.8 % (0.0-3.0); HEMATOCRIT 25.6 % (42.0-52.0); HEMOGLOBIN 8.3 G/DL (14.2-18.0); LYMPHOCYTES % (AUTO) 7.8 % (20.0-45.0); MEAN CORPUSCULAR VOLUME 99 FL (80-99); MONOCYTES % (AUTO) 15.9 % (1.0-10.0); NEUTROPHILS % (AUTO) 71.4 % (45.0-75.0); PLATELET COUNT 248 K/UL (150-450); RED BLOOD COUNT 2.58 M/UL (4.70-6.10); RED CELL DISTRIBUTION WIDTH 13.4 % (11.6-14.8); WHITE BLOOD COUNT 8.3 K/UL (4.8-10.8)
[2018-07-18 06:02] LABS: % IRON SATURATION 6 % (15-50); IRON 13 ug/dL (50-175); TOTAL IRON BINDING CAPACITY 231 ug/dL (250-450)
[2018-07-18 06:16] LABS: ALANINE AMINOTRANSFERASE 21 U/L (12-78); ALBUMIN 2.9 G/DL (3.4-5.0); ALBUMIN/GLOBULIN RATIO 0.7 (1.0-2.7); ALKALINE PHOSPHATASE 86 U/L (46-116); ANION GAP 14 mmol/L (5-15); ASPARTATE AMINO TRANSFERASE 12 U/L (15-37); BILIRUBIN,TOTAL 0.2 MG/DL (0.2-1.0); BLOOD UREA NITROGEN 113 mg/dL (7-18); CALCIUM 9.1 MG/DL (8.5-10.1); CARBON DIOXIDE 26 MMOL/L (21-32); CHLORIDE 98 MMOL/L (98-107); CREATININE 8.1 MG/DL (0.55-1.30); FERRITIN 285 NG/ML (8-388); GAMMA GLUTAMYL TRANSPEPTIDASE 79 U/L (5-85); PHOSPHORUS 6.8 MG/DL (2.5-4.9); POTASSIUM 4.2 MMOL/L (3.5-5.1); SODIUM 138 MMOL/L (136-145)
[2018-07-18] MEDS: cloNIDine 0.2mg Tab ORAL SCH ×3 (07:34→22:16)
[2018-07-18] MEDS: HydrALAZINE 25mg tab ORAL SCH ×3 (07:34→22:17)
[2018-07-18 08:00] VITALS: BP 152/95
[2018-07-18] MEDS: Docusate 100mg cap ORAL SCH ×3 (08:23→17:14)
[2018-07-18] MEDS: Aspirin Baby 81mg ORAL SCH (08:24)
[2018-07-18] MEDS: Imdur 30mg tab ORAL SCH (08:24)
[2018-07-18] MEDS: Allopurinol 100mg Tab ORAL SCH (08:26)
[2018-07-18] MEDS: Heparin 5000 units/ml inj SUBQ SCH ×2 (08:28→20:54)
[2018-07-18] MEDS ORDERED: Tamsulosin 0.4mg cap ORAL SCH (09:00)
--- NOTE | 2018-07-18 10:44 | Pulmonology Progress Note ---
Assessment/Plan Problems: (1) Epistaxis (2) Acute exacerbation of CHF (congestive heart failure) (3) Hypertensive cardiomegaly with heart failure (4) ACS (acute coronary syndrome) (5) Cocaine abuse (6) ARF (acute renal failure) Assessment/Plan ASSESSMENT: The patient is a 58-year-old male with history of cocaine and tobacco abuse, congestive heart failure, and renal impairment, presenting with decompensated heart failure and abnormal renal function with marked uremia. He has previously been told he needs dialysis. He is now being admitted for acute coronary syndrome and likely need for dialysis. PROBLEM LIST: 1. Congestive heart failure with acute decompensated heart failure. 2. Abnormal renal function, likely cardiorenal syndrome. 3. History of cocaine abuse with current positive tox screen. 4. Anemia. 5. Hypertension with hypertensive urgency. 6. Acute coronary syndrome/non-ST elevation myocardial infarction. 7. Acute on chronic LBP with radiculopathy TREATMENT PLAN: -HD per renal -Control BP -F/U cards and renal recs -Cardiac diet -F/U heme recs, needs GI eval at some point but currently unstable for endoscopy -DVT Px: hep SQ -Pain control/supportive care -MRI LS no contrast -Pain management evaluation -Appreciate psych eval, has capacity, F/U recs -SW assistance in placement Subjective Allergies: Coded Allergies: No Known Allergies (Unverified , 07/08/18) Subjective AFVSS stable O2 needs Starting HD Feels swollen + chronic back pain, feels muscles are tight No SOB, no CP, no F/C Objective Last 24 Hour Vital Signs Date Time Temp Pulse Resp B/P (MAP) Pulse Ox O2 Delivery O2 Flow Rate FiO2 07/18/18 09:00 Nasal Cannula 2.0 07/18/18 08:25 100 152/95 07/18/18 08:24 152/95 07/18/18 08:00 98.4 100 19 152/95 (114) 98 07/18/18 07:39 104 18 98 Nasal Cannula 2.0 28 07/18/18 07:34 147/96 07/18/18 07:34 141/89 07/18/18 07:25 103 18 96 Nasal Cannula 2.0 28 07/18/18 04:13 98 20 98 Nasal Cannula 2.0 28 07/18/18 04:01 103 20 96 Nasal Cannula 2.0 28 07/18/18 04:00 97.3 99 20 134/76 (95) 97 07/18/18 03:53 97.7 07/18/18 00:20 104 20 96 Nasal Cannula 2.0 28 07/18/18 00:16 103 20 93 Nasal Cannula 2.0 28 07/18/18 00:00 97.7 102 20 147/96 (113) 98 07/17/18 22:22 147/86 07/17/18 22:21 147/86 07/17/18 21:00 Nasal Cannula 2.0 07/17/18 20:00 98.3 100 18 135/76 (95) 94 07/17/18 19:58 101 20 97 Nasal Cannula 2.0 28 07/17/18 19:47 100 20 97 Nasal Cannula 2.0 28 07/17/18 17:28 104 148/95 07/17/18 16:00 97.5 104 20 148/95 (112) 94 07/17/18 15:26 98.4 07/17/18 15:07 98 18 97 Nasal Cannula 2.0 28 07/17/18 14:59 98 20 95 Nasal Cannula 2.0 28 07/17/18 14:56 147/99 07/17/18 14:56 147/99 07/17/18 14:54 104 147/99 (115) 07/17/18 13:50 103 22 143/101 (115) 93 07/17/18 13:45 102 22 141/98 (112) 93 07/17/18 13:40 103 22 150/95 (113) 93 07/17/18 13:35 102 22 148/96 (113) 93 07/17/18 13:30 102 22 150/100 (117) 95 07/17/18 13:25 101 22 151/98 (115) 97 07/17/18 12:33 102 22 4.0 07/17/18 12:00 98.4 100 20 141/87 (105) 94 Intake and Output 07/17/18 07/18/18 19:00 07:00 Intake Total 600 ml 360 ml Output Total 600 ml Balance 0 ml 360 ml Intake Oral 600 ml 360 ml Output Urine Total 600 ml General Appearance: no acute distress, cachetic HEENT: normocephalic, atraumatic, anicteric, mucous membranes moist, other - opacified eye Respiratory/Chest: chest wall non-tender, lungs clear, normal breath sounds, no respiratory distress, other - HD cath Cardiovascular: normal peripheral pulses, normal rate, regular rhythm Abdomen: normal bowel sounds, soft, non tender, no organomegaly, non distended , no mass Extremities: no cyanosis, no clubbing, other - 1+ edema Skin: other - burn on chest and trunk Laboratory Tests 07/17/18 17:40: Hepatitis B Surface Antigen [Pending], Hepatitis B Surface Antibody, Quant [ Pending], Hepatitis C Antibody [Pending] 07/18/18 05:10: White Blood Count 8.3, Red Blood Count 2.58L, Hemoglobin 8.3L, Hematocrit 25.6L , Mean Corpuscular Volume 99, Mean Corpuscular Hemoglobin 32.3H, Mean Corpuscular Hemoglobin Concent 32.6, Red Cell Distribution Width 13.4, Platelet Count 248, Mean Platelet Volume 7.0, Neutrophils (%) (Auto) 71.4, Lymphocytes (% ) (Auto) 7.8L, Monocytes (%) (Auto) 15.9H, Eosinophils (%) (Auto) 2.8, Basophils (%) (Auto) 2.1H, Sodium Level 138, Potassium Level 4.2, Chloride Level 98, Carbon Dioxide Level 26, Anion Gap 14, Blood Urea Nitrogen 113H, Creatinine 8.1H, Estimat Glomerular Filtration Rate 8.4, Glucose Level 139H, Calcium Level 9.1, Phosphorus Level 6.8H, Magnesium Level 1.9, Iron Level 13L, Total Iron Binding Capacity 231L, Percent Iron Saturation 6L, Unsaturated Iron Binding 218, Ferritin 285, Total Bilirubin 0.2, Gamma Glutamyl Transpeptidase 79 , Aspartate Amino Transf (AST/SGOT) 12L, Alanine Aminotransferase (ALT/SGPT) 21 , Alkaline Phosphatase 86, C-Reactive Protein, Quantitative 18.0H, Pro-B-Type Natriuretic Peptide 86471T, Total Protein 7.1, Albumin 2.9L, Globulin 4.2, Albumin/Globulin Ratio 0.7L Current Medications Medications (Trade) Dose Ordered Sig/Harish Route PRN Reason Start Time Stop Time Status Last Admin Dose Admin Acetaminophen (Tylenol) 650 mg Q4H PRN ORAL Mild Pain/Temp > 100.5 07/17/18 23:15 08/07/18 23:14 Acetaminophen/ Hydrocodone Bitart ([place] 10/325) 1 tab Q4H PRN ORAL Severe Pain (Pain Scale 7-10) 07/17/18 22:45 07/23/18 18:44 07/18/18 08:25 Albuterol/ Ipratropium (Albuterol/ Ipratropium) 3 ml Q4HRT HHN 07/17/18 23:00 07/19/18 10:59 07/18/18 07:25 Allopurinol (Zyloprim) 200 mg DAILY ORAL 07/18/18 09:00 08/11/18 08:59 07/18/18 08:26 Amlodipine Besylate (Norvasc) 5 mg BID ORAL 07/18/18 09:00 08/09/18 08:59 07/18/18 08:25 Aspirin (ASA) 81 mg DAILY ORAL 07/18/18 09:00 08/08/18 08:59 07/18/18 08:24 Clonidine HCl (Catapres tab) 0.2 mg EVERY 8 HOURS ORAL 07/17/18 22:00 08/09/18 13:59 07/18/18 07:34 Cyclobenzaprine HCl (Flexeril) 10 mg TIDPRN PRN ORAL Muscle Spasm 07/18/18 18:00 08/16/18 17:59 Dextrose (Dextrose 50%) 25 ml Q30M PRN IV Hypoglycemia 07/17/18 21:15 08/07/18 23:14 Dextrose (Dextrose 50%) 50 ml Q30M PRN IV Hypoglycemia 07/17/18 21:15 08/07/18 23:14 Diphenhydramine HCl (Benadryl) 25 mg Q6H PRN ORAL Itching/Pruritis 07/17/18 23:15 08/07/18 23:14 07/18/18 01:40 Docusate Sodium (Colace) 100 mg THREE TIMES A DAY ORAL 07/18/18 09:00 08/08/18 17:59 07/18/18 08:23 Epoetin Juan Pablo (Procrit (for non ESRD use)) 10,000 units FRI-WED-FRI SUBQ 07/17/18 22:00 08/12/18 21:59 07/17/18 22:30 Heparin Sodium (Porcine) (Heparin 5000 units/ml) 5,000 units EVERY 12 HOURS SUBQ 07/17/18 22:00 08/14/18 21:59 07/18/18 08:28 Hydralazine HCl (Apresoline) 75 mg Q8HR ORAL 07/17/18 22:00 08/11/18 13:59 07/18/18 07:34 Isosorbide Mononitrate (Imdur) 60 mg DAILY ORAL 07/18/18 09:00 08/11/18 08:59 07/18/18 08:24 Metolazone (Zaroxolyn) 10 mg DAILY ORAL 07/18/18 09:00 08/16/18 08:59 07/18/18 08:37 Minoxidil (Loniten) 5 mg Q4H PRN ORAL bp over 165 syst 07/17/18 21:45 08/10/18 13:44 Pantoprazole (Protonix) 40 mg EVERY 12 HOURS ORAL 07/17/18 22:00 08/10/18 21:59 07/18/18 08:24 Sevelamer Carbonate (Renvela) 2,400 mg THREE TIMES A DAY ORAL 07/18/18 09:00 08/08/18 17:59 07/18/18 08:23 Sodium Citrate (Bicitra) 30 ml EVERY 6 HOURS ORAL 07/18/18 00:00 08/11/18 11:59 07/18/18 07:33 Tamsulosin HCl (Flomax) 0.4 mg BID ORAL 07/18/18 09:00 08/09/18 12:52 07/18/18 08:24 Edgard Webb MD Jul 18, 2018 10:44
[2018-07-18 12:02] VITALS: BP 110/70
[2018-07-18] MEDS: Cyclobenzaprine 10mg Tab ORAL PRN (12:25)
--- NOTE | 2018-07-18 13:14 | Nephrology Progress Note ---
Assessment/Plan Problem List: (1) ARF (acute renal failure) (2) Cocaine abuse (3) Acute exacerbation of CHF (congestive heart failure) (4) Hypertensive cardiomegaly with heart failure Assessment Acute on Chronic renal failure Anemia Elevated troponin Hypertensive renal and heart disease Cocaine abuse Cardiomyopathy Plan currently on HD via left chest permacath transfuse one unit 07/13 Add coreg BP control- adjust BP meds up hydralazine attempt to get dialysis consent discussed with Dr Moura 2D Echo 55% ej fx BRIDGETT kidneys * Mild fullness of the bilateral renal collecting systems without radiographically appreciable stone and observed bilateral ureteral jets. Findings may be related to mild bladder distention. Consider repeat exam after bladder decompression. monitor renal parameters Avoid nephrotoxics renal diet flomax Subjective ROS Limited/Unobtainable: No Constitutional: Reports: malaise Objective Objective Last 24 Hour Vital Signs Date Time Temp Pulse Resp B/P (MAP) Pulse Ox O2 Delivery O2 Flow Rate FiO2 07/18/18 13:02 Nasal Cannula 2.0 07/18/18 12:57 Nasal Cannula 2.0 07/18/18 12:55 97.6 07/18/18 12:02 97.6 98 18 110/70 (83) 98 07/18/18 11:39 101 18 97 Nasal Cannula 2.0 28 07/18/18 11:31 89 18 95 Nasal Cannula 2.0 28 07/18/18 09:00 Nasal Cannula 2.0 07/18/18 08:55 97.3 07/18/18 08:25 100 152/95 07/18/18 08:24 152/95 07/18/18 08:00 98.4 100 19 152/95 (114) 98 07/18/18 07:39 104 18 98 Nasal Cannula 2.0 28 07/18/18 07:34 147/96 07/18/18 07:34 141/89 07/18/18 07:25 103 18 96 Nasal Cannula 2.0 28 07/18/18 04:13 98 20 98 Nasal Cannula 2.0 28 07/18/18 04:01 103 20 96 Nasal Cannula 2.0 28 07/18/18 04:00 97.3 99 20 134/76 (95) 97 07/18/18 00:20 104 20 96 Nasal Cannula 2.0 28 07/18/18 00:16 103 20 93 Nasal Cannula 2.0 28 07/18/18 00:00 97.7 102 20 147/96 (113) 98 07/17/18 22:22 147/86 07/17/18 22:21 147/86 07/17/18 21:00 Nasal Cannula 2.0 07/17/18 20:00 98.3 100 18 135/76 (95) 94 07/17/18 19:58 101 20 97 Nasal Cannula 2.0 28 07/17/18 19:47 100 20 97 Nasal Cannula 2.0 28 07/17/18 17:28 104 148/95 07/17/18 16:00 97.5 104 20 148/95 (112) 94 07/17/18 15:26 98.4 07/17/18 15:07 98 18 97 Nasal Cannula 2.0 28 07/17/18 14:59 98 20 95 Nasal Cannula 2.0 28 07/17/18 14:56 147/99 07/17/18 14:56 147/99 07/17/18 14:54 104 147/99 (115) 07/17/18 13:50 103 22 143/101 (115) 93 07/17/18 13:45 102 22 141/98 (112) 93 07/17/18 13:40 103 22 150/95 (113) 93 07/17/18 13:35 102 22 148/96 (113) 93 07/17/18 13:30 102 22 150/100 (117) 95 07/17/18 13:25 101 22 151/98 (115) 97 Intake and Output 07/17/18 07/18/18 19:00 07:00 Intake Total 600 ml 360 ml Output Total 600 ml Balance 0 ml 360 ml Intake Oral 600 ml 360 ml Output Urine Total 600 ml Laboratory Tests 07/17/18 17:40: Hepatitis B Surface Antigen [Pending], Hepatitis B Surface Antibody, Quant [ Pending], Hepatitis C Antibody [Pending] 07/18/18 05:10: White Blood Count 8.3, Red Blood Count 2.58L, Hemoglobin 8.3L, Hematocrit 25.6L , Mean Corpuscular Volume 99, Mean Corpuscular Hemoglobin 32.3H, Mean Corpuscular Hemoglobin Concent 32.6, Red Cell Distribution Width 13.4, Platelet Count 248, Mean Platelet Volume 7.0, Neutrophils (%) (Auto) 71.4, Lymphocytes (% ) (Auto) 7.8L, Monocytes (%) (Auto) 15.9H, Eosinophils (%) (Auto) 2.8, Basophils (%) (Auto) 2.1H, Sodium Level 138, Potassium Level 4.2, Chloride Level 98, Carbon Dioxide Level 26, Anion Gap 14, Blood Urea Nitrogen 113H, Creatinine 8.1H, Estimat Glomerular Filtration Rate 8.4, Glucose Level 139H, Calcium Level 9.1, Phosphorus Level 6.8H, Magnesium Level 1.9, Iron Level 13L, Total Iron Binding Capacity 231L, Percent Iron Saturation 6L, Unsaturated Iron Binding 218, Ferritin 285, Total Bilirubin 0.2, Gamma Glutamyl Transpeptidase 79 , Aspartate Amino Transf (AST/SGOT) 12L, Alanine Aminotransferase (ALT/SGPT) 21 , Alkaline Phosphatase 86, C-Reactive Protein, Quantitative 18.0H, Pro-B-Type Natriuretic Peptide 26059Z, Total Protein 7.1, Albumin 2.9L, Globulin 4.2, Albumin/Globulin Ratio 0.7L Height (Feet): 5 Height (Inches): 11.00 Weight (Pounds): 223 General Appearance: no apparent distress Cardiovascular: tachycardia Respiratory/Chest: decreased breath sounds Abdomen: soft Objective no change Richar Cm MD Jul 18, 2018 13:14
[2018-07-18] MEDS ORDERED: Carvedilol 6.25mg Tab ORAL SCH ×2 (13:15→21:00)
--- NOTE | 2018-07-18 13:33 | Cardiac Electrophysiology PN ---
Assessment/Plan Assessment/Plan 1. Non-ST elevation myocardial infarction, likely type 2 in the setting of active cocaine use and renal failure. Troponin levels are flat at 0.2, 0.2 and 0.2. Avoid beta-pablo in view of active cocaine use. On aspirin and Lipitor EF 45% 2. Hypertension. On Norvasc 5 mg bid, Hydralazine,Imdur and Clonidine patch. Avoid custodial beta-blockers for active cocaine use OK to use Coreg 6.25 bid now while in hospital since last use was more than 10 days ago. Off ARMAND inhibitor and angiotensin-receptor pablo for renal failure. 3. End-stage renal disease, has not been started on hemodialysis. Cr 8.9 Just got his dialysis catheter. HD by Dr. Cm today 4. Substance use with cocaine. Avoid beta-blockers. 5. Recent pneumonia. 6. Congestive heart failure. Echocardiogram EF 45% 7. Severe anemia s/p PRBCs . DW RN and Dr Cm Subjective Subjective No CP or SOB. Had HD today. Objective Last 24 Hour Vital Signs Date Time Temp Pulse Resp B/P (MAP) Pulse Ox O2 Delivery O2 Flow Rate FiO2 07/18/18 13:02 Nasal Cannula 2.0 07/18/18 12:57 Nasal Cannula 2.0 07/18/18 12:55 97.6 07/18/18 12:02 97.6 98 18 110/70 (83) 98 07/18/18 11:39 101 18 97 Nasal Cannula 2.0 28 07/18/18 11:31 89 18 95 Nasal Cannula 2.0 28 07/18/18 09:00 Nasal Cannula 2.0 07/18/18 08:55 97.3 07/18/18 08:25 100 152/95 07/18/18 08:24 152/95 07/18/18 08:00 98.4 100 19 152/95 (114) 98 07/18/18 07:39 104 18 98 Nasal Cannula 2.0 28 07/18/18 07:34 147/96 07/18/18 07:34 141/89 07/18/18 07:25 103 18 96 Nasal Cannula 2.0 28 07/18/18 04:13 98 20 98 Nasal Cannula 2.0 28 07/18/18 04:01 103 20 96 Nasal Cannula 2.0 28 07/18/18 04:00 97.3 99 20 134/76 (95) 97 07/18/18 00:20 104 20 96 Nasal Cannula 2.0 28 07/18/18 00:16 103 20 93 Nasal Cannula 2.0 28 07/18/18 00:00 97.7 102 20 147/96 (113) 98 07/17/18 22:22 147/86 07/17/18 22:21 147/86 07/17/18 21:00 Nasal Cannula 2.0 07/17/18 20:00 98.3 100 18 135/76 (95) 94 07/17/18 19:58 101 20 97 Nasal Cannula 2.0 28 07/17/18 19:47 100 20 97 Nasal Cannula 2.0 28 07/17/18 17:28 104 148/95 07/17/18 16:00 97.5 104 20 148/95 (112) 94 07/17/18 15:26 98.4 07/17/18 15:07 98 18 97 Nasal Cannula 2.0 28 07/17/18 14:59 98 20 95 Nasal Cannula 2.0 28 07/17/18 14:56 147/99 07/17/18 14:56 147/99 07/17/18 14:54 104 147/99 (115) 07/17/18 13:50 103 22 143/101 (115) 93 07/17/18 13:45 102 22 141/98 (112) 93 07/17/18 13:40 103 22 150/95 (113) 93 07/17/18 13:35 102 22 148/96 (113) 93 07/17/18 13:30 102 22 150/100 (117) 95 Intake and Output 07/17/18 07/18/18 19:00 07:00 Intake Total 600 ml 360 ml Output Total 600 ml Balance 0 ml 360 ml Intake Oral 600 ml 360 ml Output Urine Total 600 ml Laboratory Tests Test 07/17/18 17:40 07/18/18 05:10 Hepatitis B Surface Antigen Pending Hepatitis B Surface Antibody, Quant Pending Hepatitis C Antibody Pending White Blood Count 8.3 K/UL (4.8-10.8) Red Blood Count 2.58 M/UL (4.70-6.10) L Hemoglobin 8.3 G/DL (14.2-18.0) L Hematocrit 25.6 % (42.0-52.0) L Mean Corpuscular Volume 99 FL (80-99) Mean Corpuscular Hemoglobin 32.3 PG (27.0-31.0) H Mean Corpuscular Hemoglobin Concent 32.6 G/DL (32.0-36.0) Red Cell Distribution Width 13.4 % (11.6-14.8) Platelet Count 248 K/UL (150-450) Mean Platelet Volume 7.0 FL (6.5-10.1) Neutrophils (%) (Auto) 71.4 % (45.0-75.0) Lymphocytes (%) (Auto) 7.8 % (20.0-45.0) L Monocytes (%) (Auto) 15.9 % (1.0-10.0) H Eosinophils (%) (Auto) 2.8 % (0.0-3.0) Basophils (%) (Auto) 2.1 % (0.0-2.0) H Sodium Level 138 MMOL/L (136-145) Potassium Level 4.2 MMOL/L (3.5-5.1) Chloride Level 98 MMOL/L (98-107) Carbon Dioxide Level 26 MMOL/L (21-32) Anion Gap 14 mmol/L (5-15) Blood Urea Nitrogen 113 mg/dL (7-18) H Creatinine 8.1 MG/DL (0.55-1.30) H Estimat Glomerular Filtration Rate 8.4 mL/min (>60) Glucose Level 139 MG/DL (74-106) H Calcium Level 9.1 MG/DL (8.5-10.1) Phosphorus Level 6.8 MG/DL (2.5-4.9) H Magnesium Level 1.9 MG/DL (1.8-2.4) Iron Level 13 ug/dL (50-175) L Total Iron Binding Capacity 231 ug/dL (250-450) L Percent Iron Saturation 6 % (15-50) L Unsaturated Iron Binding 218 ug/dL (112-346) Ferritin 285 NG/ML (8-388) Total Bilirubin 0.2 MG/DL (0.2-1.0) Gamma Glutamyl Transpeptidase 79 U/L (5-85) Aspartate Amino Transf (AST/SGOT) 12 U/L (15-37) L Alanine Aminotransferase (ALT/SGPT) 21 U/L (12-78) Alkaline Phosphatase 86 U/L (46-116) C-Reactive Protein, Quantitative 18.0 mg/dL (0.00-0.90) H Pro-B-Type Natriuretic Peptide 57096 pg/mL (0-125) H Total Protein 7.1 G/DL (6.4-8.2) Albumin 2.9 G/DL (3.4-5.0) L Globulin 4.2 g/dL Albumin/Globulin Ratio 0.7 (1.0-2.7) L Objective HEAD AND NECK: No JVD. LUNGS: Decreased breath sounds.Right IJ PermCath in place CARDIOVASCULAR: Regular S1 and S2 with no gallop or murmur. ABDOMEN: Soft. EXTREMITIES: 1 plus pitting edema. German Gray MD Jul 18, 2018 13:33
[2018-07-18] MEDS ORDERED: Iron Sucrose 200 MG in NS 110 ML IV SCH (14:00)
--- NOTE | 2018-07-18 15:49 | Cardiology Report ---
APPROVED REPORT EKG Measurement Heart [id number] [id number] Sinus tachycardia LVH by voltage Possible Left atrial enlargement Abnormal ECG
--- NOTE | 2018-07-18 15:49 | Diagnostic Imaging Report ---
Indication: Patient requires long-term hemodialysis. Findings: After the indications, procedure, risks, complications, and alternatives of the procedure were explained, written informed consent was obtained. Patient was brought to the angio-fluoroscopic suite and placed supine on the table. All elements of maximum sterile barrier technique were followed including use of a cap and mask, sterile gown, sterile gloves, and a large sterile sheet. Alcohol used to prep the skin. 1% lidocaine was used to anesthetize the skin and subcutaneous tissue. Sonographic evaluation of the the right jugular vein was performed demonstrating a patent and compressible vein. Access using an 18 gauge needle was obtained under real-time ultrasound guidance and digital image was saved in archive. An 035 wire was then advanced into the vein and negotiated fluoroscopically into the inferior vena cava. Lidocaine infiltration of the right anterior chest wall was then performed followed by dermatotomy. A tunnel of lidocaine was then made between this site and the venous puncture site. A 14.5 [place] 23 cm dual-lumen catheter was then tunneled through the tract. The wire within the jugular vein was then exchanged for a dilator. Serial dilatations were performed. The catheter was then inserted into the last dilator/peel-away sheath such that the tip resides in the SVC. The dilator/peel-away sheath and wire were removed and the catheter was completely buried under the skin. Proximal portion of the catheter was secured to the skin using 2-0 Prolene suture. Both ports aspirate and flush easily. Both dermatotomy sites were closed with Dermabond. Total fluoroscopic time: 87 seconds Impression: Successful placement of tunneled right jugular hemodialysis catheter. No complications.
--- NOTE | 2018-07-18 15:50 | Cardiology Report ---
APPROVED REPORT EKG Measurement Heart [id number] Sinus tachycardia Possible Left atrial enlargement Nonspecific T wave abnormality Abnormal ECG
--- NOTE | 2018-07-18 15:50 | Cardiology Report ---
APPROVED REPORT EKG Measurement Heart [id number] ID [id number] Sinus tachycardia Biatrial enlargement Abnormal ECG
[2018-07-18 15:53] VITALS: BP 143/90
[2018-07-18 20:00] VITALS: BP 134/94
[2018-07-18] MEDS ORDERED: Albuterol/Ipratropium 3ml neb ONE (20:37)
[2018-07-18] MEDS: Tamsulosin 0.4mg cap ORAL SCH (20:54)
--- NOTE | 2018-07-18 21:17 | General Progress Note ---
Assessment/Plan Assessment/Plan ASSESSMENT AND RECS # Anemia of chronic disease, multifactorial, grace on ckd --> Anemia w/u has been reviewed --> No evidence of hemolysis is noted, peripheral smear has been reviewed. --> Hgb goal >7. Transfuse prn. --> continue on epo # Congestive heart failure with acute decompensated heart failure. --> per cards management --> In tele unit --> on diuresis # Abnormal renal function, likely cardiorenal syndrome. --> Nephrology is following appreciate recs -->BRIDGETT kidneys * Mild fullness of the bilateral renal collecting systems without radiographically appreciable stone and observed bilateral ureteral jets. Findings may be related to mild bladder distention. Consider repeat exam after bladder decompression. # History of cocaine abuse with current positive tox screen. # Hypertension with hypertensive urgency. --> On Norvasc 5 mg bid, Hydralazine,Imdur and Clonidine patch. Avoid beta-blockers for active cocaine use Off ARMAND inhibitor and angiotensin-receptor pablo. # Acute coronary syndrome/non-ST elevation myocardial infarction. GREATLY APPRECIATE CONSULTATION. Date and time note entered does not reflect time and date patient was seen. Subjective Constitutional: Denies: no symptoms, chills, diaphoresis, fever, malaise, weakness, other HEENT: Denies: no symptoms, eye pain, blurred vision, tearing, double vision, ear pain, ear discharge, nose pain, nose congestion, throat pain, throat swelling, mouth pain, mouth swelling, other Cardiovascular: Denies: no symptoms, chest pain, edema, irregular heart rate, lightheadedness, palpitations, syncope, other Respiratory: Denies: no symptoms, cough, orthopnea, shortness of breath, SOB with excertion, SOB at rest, sputum, stridor, wheezing, other Gastrointestinal/Abdominal: Denies: no symptoms, abdomen distended, abdominal pain, black stools, tarry stools, blood in stool, constipated, diarrhea, difficulty swallowing, nausea, poor appetite, poor fluid intake, rectal bleeding , vomiting, other Genitourinary: Denies: no symptoms, burning, discharge, frequency, flank pain, hematuria, incontinence, pain, urgency, other Neurologic/Psychiatric: Denies: no symptoms, anxiety, depressed, emotional problems, headache, numbness, paresthesia, pre-existing deficit, seizure, tingling, tremors, weakness, other Hematologic/Lymphatic: Denies: no symptoms, anemia, easy bleeding, easy bruising, other Allergies: Coded Allergies: No Known Allergies (Unverified , 07/08/18) Subjective 07/12: no events, cr trending, h/h stable, on epo 07/14: transfuse one unit 07/13, diruresed, refused mendez, seen by cards, bp better 07/15 : Pt is seen in the room, awake and alert, S/P blood transfusion, refusing HD 07/16 : Pt is awake and resting in bed. waiting on sister to make HD decision, no events 07/17 Pt is seen in the room,awake and alert, appears to be agreeable for placement of dialysis cath and dialysis . 07/18: Pt is seen in the room, No CP or SOB. Had HD today. Objective Last 24 Hour Vital Signs Date Time Temp Pulse Resp B/P (MAP) Pulse Ox O2 Delivery O2 Flow Rate FiO2 07/18/18 20:59 96 18 95 Nasal Cannula 3.0 32 07/18/18 20:53 98 134/94 07/18/18 20:50 91 20 94 Nasal Cannula 3.0 32 07/18/18 20:00 98.0 98 20 134/94 (107) 96 07/18/18 16:52 97.6 07/18/18 16:20 99 18 98 Nasal Cannula 2.0 28 07/18/18 16:10 92 18 96 Nasal Cannula 2.0 28 07/18/18 15:53 97.6 98 19 143/90 (107) 96 07/18/18 14:59 98 149/91 07/18/18 14:47 149/91 07/18/18 14:47 149/91 07/18/18 13:02 Nasal Cannula 2.0 07/18/18 12:57 Nasal Cannula 2.0 07/18/18 12:55 97.6 07/18/18 12:02 97.6 98 18 110/70 (83) 98 07/18/18 11:39 101 18 97 Nasal Cannula 2.0 28 07/18/18 11:31 89 18 95 Nasal Cannula 2.0 28 07/18/18 09:00 Nasal Cannula 2.0 07/18/18 08:25 100 152/95 07/18/18 08:24 152/95 07/18/18 08:00 98.4 100 19 152/95 (114) 98 07/18/18 07:39 104 18 98 Nasal Cannula 2.0 28 07/18/18 07:34 147/96 07/18/18 07:34 141/89 07/18/18 07:25 103 18 96 Nasal Cannula 2.0 28 07/18/18 04:13 98 20 98 Nasal Cannula 2.0 28 07/18/18 04:01 103 20 96 Nasal Cannula 2.0 28 07/18/18 04:00 97.3 99 20 134/76 (95) 97 07/18/18 00:20 104 20 96 Nasal Cannula 2.0 28 07/18/18 00:16 103 20 93 Nasal Cannula 2.0 28 07/18/18 00:00 97.7 102 20 147/96 (113) 98 07/17/18 22:22 147/86 07/17/18 22:21 147/86 Intake and Output 07/17/18 07/18/18 19:00 07:00 Intake Total 600 ml 360 ml Output Total 600 ml Balance 0 ml 360 ml Intake Oral 600 ml 360 ml Output Urine Total 600 ml Laboratory Tests 07/18/18 05:10: White Blood Count 8.3, Red Blood Count 2.58L, Hemoglobin 8.3L, Hematocrit 25.6L , Mean Corpuscular Volume 99, Mean Corpuscular Hemoglobin 32.3H, Mean Corpuscular Hemoglobin Concent 32.6, Red Cell Distribution Width 13.4, Platelet Count 248, Mean Platelet Volume 7.0, Neutrophils (%) (Auto) 71.4, Lymphocytes (% ) (Auto) 7.8L, Monocytes (%) (Auto) 15.9H, Eosinophils (%) (Auto) 2.8, Basophils (%) (Auto) 2.1H, Sodium Level 138, Potassium Level 4.2, Chloride Level 98, Carbon Dioxide Level 26, Anion Gap 14, Blood Urea Nitrogen 113H, Creatinine 8.1H, Estimat Glomerular Filtration Rate 8.4, Glucose Level 139H, Calcium Level 9.1, Phosphorus Level 6.8H, Magnesium Level 1.9, Iron Level 13L, Total Iron Binding Capacity 231L, Percent Iron Saturation 6L, Unsaturated Iron Binding 218, Ferritin 285, Total Bilirubin 0.2, Gamma Glutamyl Transpeptidase 79 , Aspartate Amino Transf (AST/SGOT) 12L, Alanine Aminotransferase (ALT/SGPT) 21 , Alkaline Phosphatase 86, C-Reactive Protein, Quantitative 18.0H, Pro-B-Type Natriuretic Peptide 77654K, Total Protein 7.1, Albumin 2.9L, Globulin 4.2, Albumin/Globulin Ratio 0.7L Height (Feet): 5 Height (Inches): 11.00 Weight (Pounds): 223 Shane Mary MD Jul 18, 2018 21:17
[2018-07-19] VITALS: BP 137/89
[2018-07-19] MEDS: HYDROcodone/Acetamin 10/325 tab ORAL PRN ×3 (02:37→22:19)
[2018-07-19] MEDS: Albuterol/Ipratropium 3ml neb HHN SCH ×2 (02:54→07:52)
[2018-07-19 04:00] VITALS: BP 139/92
[2018-07-19] MEDS: HydrALAZINE 25mg tab ORAL SCH (05:56)
[2018-07-19] MEDS: cloNIDine 0.2mg Tab ORAL SCH ×3 (05:56→22:18)
[2018-07-19 08:00] VITALS: BP 143/90
[2018-07-19] MEDS: Imdur 30mg tab ORAL SCH (08:41)
[2018-07-19] MEDS: Cyclobenzaprine 10mg Tab ORAL PRN (08:41)
[2018-07-19] MEDS: Allopurinol 100mg Tab ORAL SCH (08:42)
[2018-07-19] MEDS: Docusate 100mg cap ORAL SCH ×3 (08:42→17:39)
[2018-07-19] MEDS: Aspirin Baby 81mg ORAL SCH (08:42)
[2018-07-19] MEDS: Heparin 5000 units/ml inj SUBQ SCH ×2 (08:47→20:59)
[2018-07-19] MEDS: Carvedilol 12.5mg tab ORAL SCH ×2 (08:48→20:58)
--- NOTE | 2018-07-19 10:57 | Nephrology Progress Note ---
Assessment/Plan Problem List: (1) ARF (acute renal failure) (2) Cocaine abuse (3) Acute exacerbation of CHF (congestive heart failure) (4) Hypertensive cardiomegaly with heart failure Assessment Acute on Chronic renal failure Anemia Elevated troponin Hypertensive renal and heart disease Cocaine abuse Cardiomyopathy Plan dialysed 07/18 next HD 07/20 aim to UF 3 liters transfuse one unit 07/13 adjust coreg dose BP control- adjust BP meds DC hydralazine add Zestril discussed with Dr Moura 2D Echo 55% ej fx BRIDGETT kidneys * Mild fullness of the bilateral renal collecting systems without radiographically appreciable stone and observed bilateral ureteral jets. Findings may be related to mild bladder distention. Consider repeat exam after bladder decompression. monitor renal parameters Avoid nephrotoxics renal diet flomax Subjective ROS Limited/Unobtainable: No Objective Objective Last 24 Hour Vital Signs Date Time Temp Pulse Resp B/P (MAP) Pulse Ox O2 Delivery O2 Flow Rate FiO2 07/19/18 09:11 98.1 07/19/18 08:56 Nasal Cannula 2.0 07/19/18 08:48 93 143/90 07/19/18 08:41 143/90 07/19/18 08:39 93 143/90 07/19/18 08:00 97.1 93 19 143/90 (107) 97 07/19/18 08:00 92 18 99 Nasal Cannula 2.0 28 07/19/18 07:50 94 20 97 Nasal Cannula 3.0 32 07/19/18 05:56 139/92 07/19/18 05:56 139/92 07/19/18 04:00 98.1 96 19 139/92 (108) 95 07/19/18 03:04 100 18 96 Nasal Cannula 3.0 32 07/19/18 02:54 99 22 96 Nasal Cannula 3.0 32 07/19/18 00:00 98.2 94 19 137/89 (105) 96 07/18/18 23:55 101 18 98 Nasal Cannula 3.0 32 07/18/18 23:46 100 20 96 Nasal Cannula 3.0 32 07/18/18 22:17 137/91 07/18/18 22:16 137/91 07/18/18 21:00 Nasal Cannula 2.0 07/18/18 20:59 96 18 95 Nasal Cannula 3.0 32 07/18/18 20:53 98 134/94 07/18/18 20:50 91 20 94 Nasal Cannula 3.0 32 07/18/18 20:00 98.0 98 20 134/94 (107) 96 07/18/18 16:52 97.6 07/18/18 16:20 99 18 98 Nasal Cannula 2.0 28 07/18/18 16:10 92 18 96 Nasal Cannula 2.0 28 07/18/18 15:53 97.6 98 19 143/90 (107) 96 07/18/18 14:59 98 149/91 07/18/18 14:47 149/91 07/18/18 14:47 149/91 07/18/18 13:02 Nasal Cannula 2.0 07/18/18 12:57 Nasal Cannula 2.0 07/18/18 12:02 97.6 98 18 110/70 (83) 98 07/18/18 11:39 101 18 97 Nasal Cannula 2.0 28 07/18/18 11:31 89 18 95 Nasal Cannula 2.0 28 Intake and Output 07/18/18 07/19/18 19:00 07:00 Intake Total 360 ml 1000 ml Output Total 1000 ml 200 ml Balance -640 ml 800 ml Intake Oral 120 ml 1000 ml IV Total 240 ml Output Urine Total 200 ml Hemodialysis UF 1000 ml # Voids 6 # Bowel Movements 1 Laboratory Tests 07/19/18 10:35: C-Reactive Protein, Quantitative [Pending] Height (Feet): 5 Height (Inches): 11.00 Weight (Pounds): 216 General Appearance: no apparent distress Cardiovascular: normal rate Respiratory/Chest: decreased breath sounds Abdomen: soft Extremities: other - 3+ edema Objective no change Richar Cm MD Jul 19, 2018 10:57
[2018-07-19] MEDS ORDERED: Lisinopril 10mg tab ORAL SCH (11:00)
--- NOTE | 2018-07-19 11:06 | Pulmonology Progress Note ---
Assessment/Plan Problems: (1) Epistaxis (2) Acute exacerbation of CHF (congestive heart failure) (3) Hypertensive cardiomegaly with heart failure (4) ACS (acute coronary syndrome) (5) Cocaine abuse (6) ARF (acute renal failure) Assessment/Plan ASSESSMENT: The patient is a 58-year-old male with history of cocaine and tobacco abuse, congestive heart failure, and renal impairment, presenting with decompensated heart failure and abnormal renal function with marked uremia. He has previously been told he needs dialysis. He is now being admitted for acute coronary syndrome and likely need for dialysis. PROBLEM LIST: 1. Congestive heart failure with acute decompensated heart failure. 2. Abnormal renal function, likely cardiorenal syndrome. 3. History of cocaine abuse with current positive tox screen. 4. Anemia. 5. Hypertension with hypertensive urgency. 6. Acute coronary syndrome/non-ST elevation myocardial infarction. 7. Acute on chronic LBP with radiculopathy TREATMENT PLAN: -HD per renal, increase UF as able -F/U Duplex -Control BP -F/U cards and renal recs -Cardiac diet -F/U heme recs, needs GI eval at some point but currently unstable for endoscopy -DVT Px: hep SQ -Pain control/supportive care -MRI LS no contrast -Pain management evaluation -Appreciate psych eval, has capacity, F/U recs -SW assistance in placement Subjective Allergies: Coded Allergies: No Known Allergies (Unverified , 07/08/18) Subjective AFVSS stable O2 needs S/P HD - 1L Still swollen No change in chronic back pain, feels muscles are tight No SOB, no CP, no F/C Objective Last 24 Hour Vital Signs Date Time Temp Pulse Resp B/P (MAP) Pulse Ox O2 Delivery O2 Flow Rate FiO2 07/19/18 09:11 98.1 07/19/18 08:56 Nasal Cannula 2.0 07/19/18 08:48 93 143/90 07/19/18 08:41 143/90 07/19/18 08:39 93 143/90 07/19/18 08:00 97.1 93 19 143/90 (107) 97 07/19/18 08:00 92 18 99 Nasal Cannula 2.0 28 07/19/18 07:50 94 20 97 Nasal Cannula 3.0 32 07/19/18 05:56 139/92 07/19/18 05:56 139/92 07/19/18 04:00 98.1 96 19 139/92 (108) 95 07/19/18 03:04 100 18 96 Nasal Cannula 3.0 32 07/19/18 02:54 99 22 96 Nasal Cannula 3.0 32 07/19/18 00:00 98.2 94 19 137/89 (105) 96 07/18/18 23:55 101 18 98 Nasal Cannula 3.0 32 07/18/18 23:46 100 20 96 Nasal Cannula 3.0 32 07/18/18 22:17 137/91 07/18/18 22:16 137/91 07/18/18 21:00 Nasal Cannula 2.0 07/18/18 20:59 96 18 95 Nasal Cannula 3.0 32 07/18/18 20:53 98 134/94 07/18/18 20:50 91 20 94 Nasal Cannula 3.0 32 07/18/18 20:00 98.0 98 20 134/94 (107) 96 07/18/18 16:52 97.6 07/18/18 16:20 99 18 98 Nasal Cannula 2.0 28 07/18/18 16:10 92 18 96 Nasal Cannula 2.0 28 07/18/18 15:53 97.6 98 19 143/90 (107) 96 07/18/18 14:59 98 149/91 07/18/18 14:47 149/91 07/18/18 14:47 149/91 07/18/18 13:02 Nasal Cannula 2.0 07/18/18 12:57 Nasal Cannula 2.0 07/18/18 12:02 97.6 98 18 110/70 (83) 98 07/18/18 11:39 101 18 97 Nasal Cannula 2.0 28 07/18/18 11:31 89 18 95 Nasal Cannula 2.0 28 Intake and Output 07/18/18 07/19/18 19:00 07:00 Intake Total 360 ml 1000 ml Output Total 1000 ml 200 ml Balance -640 ml 800 ml Intake Oral 120 ml 1000 ml IV Total 240 ml Output Urine Total 200 ml Hemodialysis UF 1000 ml # Voids 6 # Bowel Movements 1 General Appearance: WD/WN, no acute distress HEENT: normocephalic, atraumatic, anicteric, mucous membranes moist Respiratory/Chest: chest wall non-tender, lungs clear - with BiB rales, no respiratory distress, no accessory muscle use Cardiovascular: normal peripheral pulses, normal rate, regular rhythm Abdomen: normal bowel sounds, soft, non tender, no organomegaly, non distended , no mass Extremities: no cyanosis, no clubbing, other - 1-2+ edema Laboratory Tests 07/19/18 10:35: C-Reactive Protein, Quantitative [Pending] Current Medications Medications (Trade) Dose Ordered Sig/Harish Route PRN Reason Start Time Stop Time Status Last Admin Dose Admin Acetaminophen (Tylenol) 650 mg Q4H PRN ORAL Mild Pain/Temp > 100.5 07/17/18 23:15 08/07/18 23:14 07/19/18 05:02 Acetaminophen/ Hydrocodone Bitart (Magnolia 10/325) 1 tab Q4H PRN ORAL Severe Pain (Pain Scale 7-10) 07/17/18 22:45 07/23/18 18:44 07/19/18 06:42 Allopurinol (Zyloprim) 200 mg DAILY ORAL 07/18/18 09:00 08/11/18 08:59 07/19/18 08:42 Amlodipine Besylate (Norvasc) 10 mg DAILY ORAL 07/19/18 09:00 08/18/18 08:59 07/19/18 08:39 Aspirin (ASA) 81 mg DAILY ORAL 07/18/18 09:00 08/08/18 08:59 07/19/18 08:42 Carvedilol (Coreg) 12.5 mg EVERY 12 HOURS ORAL 07/19/18 09:00 08/17/18 20:59 07/19/18 08:48 Clonidine HCl (Catapres tab) 0.2 mg EVERY 8 HOURS ORAL 07/17/18 22:00 08/09/18 13:59 07/19/18 05:56 Cyclobenzaprine HCl (Flexeril) 10 mg TIDPRN PRN ORAL Muscle Spasm 07/18/18 12:15 08/16/18 12:14 07/19/18 08:41 Dextrose (Dextrose 50%) 25 ml Q30M PRN IV Hypoglycemia 07/17/18 21:15 08/07/18 23:14 Dextrose (Dextrose 50%) 50 ml Q30M PRN IV Hypoglycemia 07/17/18 21:15 08/07/18 23:14 Diphenhydramine HCl (Benadryl) 25 mg Q6H PRN ORAL Itching/Pruritis 07/17/18 23:15 08/07/18 23:14 07/18/18 01:40 Docusate Sodium (Colace) 100 mg THREE TIMES A DAY ORAL 07/18/18 09:00 08/08/18 17:59 07/19/18 08:42 Epoetin Juan Pablo (Procrit (for non ESRD use)) 10,000 units FRI-FRI-FRI SUBQ 07/17/18 22:00 08/12/18 21:59 07/17/18 22:30 Gabapentin (Neurontin) 200 mg THREE TIMES A DAY ORAL 07/18/18 18:00 08/17/18 17:59 07/19/18 08:41 Heparin Sodium (Porcine) (Heparin 5000 units/ml) 5,000 units EVERY 12 HOURS SUBQ 07/17/18 22:00 08/14/18 21:59 07/19/18 08:47 Isosorbide Mononitrate (Imdur) 60 mg DAILY ORAL 07/18/18 09:00 08/11/18 08:59 07/19/18 08:41 Lisinopril (Zestril) 10 mg DAILY ORAL 07/20/18 09:00 08/19/18 08:59 Lisinopril (Zestril) 10 mg ONCE ORAL 07/19/18 11:00 07/19/18 12:00 Minoxidil (Loniten) 5 mg Q4H PRN ORAL bp over 165 syst 07/17/18 21:45 08/10/18 13:44 Pantoprazole (Protonix) 40 mg EVERY 12 HOURS ORAL 07/17/18 22:00 08/10/18 21:59 07/19/18 08:42 Sevelamer Carbonate (Renvela) 2,400 mg THREE TIMES A DAY ORAL 07/18/18 09:00 08/08/18 17:59 07/19/18 08:42 Tamsulosin HCl (Flomax) 0.4 mg QHS ORAL 07/18/18 21:00 08/09/18 12:52 07/18/18 20:54 Edgard Webb MD Jul 19, 2018 11:06
--- NOTE | 2018-07-19 11:27 | Consultation ---
History of Present Illness General Date patient seen: Jul 19, 2018 Chief Complaint: Present Illness Allergies: Coded Allergies: No Known Allergies (Unverified , 07/08/18) Medication History Scheduled Furosemide (Furosemide), 80 MG ORAL DAILY, (Reported) Hydralazine Hcl* (Hydralazine Hcl*), 50 MG ORAL EVERY 8 HOURS, (Reported) Miscellaneous Medications Unable to Obtain Medications (Unable To Obtain Meds), (Reported) Patient History Healthcare decision maker N Resuscitation status Full Code Advanced Directive on File Physical Exam Last 24 Hour Vital Signs Date Time Temp Pulse Resp B/P (MAP) Pulse Ox O2 Delivery O2 Flow Rate FiO2 07/19/18 09:11 98.1 07/19/18 08:56 Nasal Cannula 2.0 07/19/18 08:48 93 143/90 07/19/18 08:41 143/90 07/19/18 08:39 93 143/90 07/19/18 08:00 97.1 93 19 143/90 (107) 97 07/19/18 08:00 92 18 99 Nasal Cannula 2.0 28 07/19/18 07:50 94 20 97 Nasal Cannula 3.0 32 07/19/18 05:56 139/92 07/19/18 05:56 139/92 07/19/18 04:00 98.1 96 19 139/92 (108) 95 07/19/18 03:04 100 18 96 Nasal Cannula 3.0 32 07/19/18 02:54 99 22 96 Nasal Cannula 3.0 32 07/19/18 00:00 98.2 94 19 137/89 (105) 96 07/18/18 23:55 101 18 98 Nasal Cannula 3.0 32 07/18/18 23:46 100 20 96 Nasal Cannula 3.0 32 07/18/18 22:17 137/91 07/18/18 22:16 137/91 07/18/18 21:00 Nasal Cannula 2.0 07/18/18 20:59 96 18 95 Nasal Cannula 3.0 32 07/18/18 20:53 98 134/94 07/18/18 20:50 91 20 94 Nasal Cannula 3.0 32 07/18/18 20:00 98.0 98 20 134/94 (107) 96 07/18/18 16:52 97.6 07/18/18 16:20 99 18 98 Nasal Cannula 2.0 28 07/18/18 16:10 92 18 96 Nasal Cannula 2.0 28 07/18/18 15:53 97.6 98 19 143/90 (107) 96 07/18/18 14:59 98 149/91 07/18/18 14:47 149/91 07/18/18 14:47 149/91 07/18/18 13:02 Nasal Cannula 2.0 07/18/18 12:57 Nasal Cannula 2.0 07/18/18 12:02 97.6 98 18 110/70 (83) 98 07/18/18 11:39 101 18 97 Nasal Cannula 2.0 28 07/18/18 11:31 89 18 95 Nasal Cannula 2.0 28 Intake and Output 07/18/18 07/19/18 19:00 07:00 Intake Total 360 ml 1000 ml Output Total 1000 ml 200 ml Balance -640 ml 800 ml Intake Oral 120 ml 1000 ml IV Total 240 ml Output Urine Total 200 ml Hemodialysis UF 1000 ml # Voids 6 # Bowel Movements 1 Laboratory Tests Test 07/19/18 10:35 C-Reactive Protein, Quantitative 18.0 mg/dL (0.00-0.90) H Height (Feet): 5 Height (Inches): 11.00 Weight (Pounds): 216 Medications Current Medications Medications (Trade) Dose Ordered Sig/Harish Route PRN Reason Start Time Stop Time Status Last Admin Dose Admin Acetaminophen (Tylenol) 650 mg Q4H PRN ORAL Mild Pain/Temp > 100.5 07/17/18 23:15 08/07/18 23:14 07/19/18 05:02 Acetaminophen/ Hydrocodone Bitart (Ruth 10/325) 1 tab Q4H PRN ORAL Severe Pain (Pain Scale 7-10) 07/17/18 22:45 07/23/18 18:44 07/19/18 06:42 Allopurinol (Zyloprim) 200 mg DAILY ORAL 07/18/18 09:00 08/11/18 08:59 07/19/18 08:42 Amlodipine Besylate (Norvasc) 10 mg DAILY ORAL 07/19/18 09:00 08/18/18 08:59 07/19/18 08:39 Aspirin (ASA) 81 mg DAILY ORAL 07/18/18 09:00 08/08/18 08:59 07/19/18 08:42 Carvedilol (Coreg) 12.5 mg EVERY 12 HOURS ORAL 07/19/18 09:00 08/17/18 20:59 07/19/18 08:48 Clonidine HCl (Catapres tab) 0.2 mg EVERY 8 HOURS ORAL 07/17/18 22:00 08/09/18 13:59 07/19/18 05:56 Cyclobenzaprine HCl (Flexeril) 10 mg TIDPRN PRN ORAL Muscle Spasm 07/18/18 12:15 08/16/18 12:14 07/19/18 08:41 Dextrose (Dextrose 50%) 25 ml Q30M PRN IV Hypoglycemia 07/17/18 21:15 08/07/18 23:14 Dextrose (Dextrose 50%) 50 ml Q30M PRN IV Hypoglycemia 07/17/18 21:15 08/07/18 23:14 Diphenhydramine HCl (Benadryl) 25 mg Q6H PRN ORAL Itching/Pruritis 07/17/18 23:15 08/07/18 23:14 07/18/18 01:40 Docusate Sodium (Colace) 100 mg THREE TIMES A DAY ORAL 07/18/18 09:00 08/08/18 17:59 07/19/18 08:42 Epoetin Juan Pablo (Procrit (for non ESRD use)) 10,000 units -FRI SUBQ 07/17/18 22:00 08/12/18 21:59 07/17/18 22:30 Gabapentin (Neurontin) 200 mg THREE TIMES A DAY ORAL 07/18/18 18:00 08/17/18 17:59 07/19/18 08:41 Heparin Sodium (Porcine) (Heparin 5000 units/ml) 5,000 units EVERY 12 HOURS SUBQ 07/17/18 22:00 08/14/18 21:59 07/19/18 08:47 Isosorbide Mononitrate (Imdur) 60 mg DAILY ORAL 07/18/18 09:00 08/11/18 08:59 07/19/18 08:41 Lisinopril (Zestril) 10 mg DAILY ORAL 07/20/18 09:00 08/19/18 08:59 Lisinopril (Zestril) 10 mg ONCE ORAL 07/19/18 11:00 07/19/18 12:00 Minoxidil (Loniten) 5 mg Q4H PRN ORAL bp over 165 syst 07/17/18 21:45 08/10/18 13:44 Pantoprazole (Protonix) 40 mg EVERY 12 HOURS ORAL 07/17/18 22:00 08/10/18 21:59 07/19/18 08:42 Sevelamer Carbonate (Renvela) 2,400 mg THREE TIMES A DAY ORAL 07/18/18 09:00 08/08/18 17:59 07/19/18 08:42 Tamsulosin HCl (Flomax) 0.4 mg QHS ORAL 07/18/18 21:00 08/09/18 12:52 07/18/18 20:54 Assessment/Plan Assessment/Plan (1) Lumbar DDD (2) Lumbar Spondylosis (3) Cocaine Abuse seen dictated James Ramirez Jul 19, 2018 11:27
[2018-07-19 12:00] VITALS: BP 137/73
--- NOTE | 2018-07-19 12:38 | Diagnostic Imaging Report ---
EXAM: US Duplex Bilateral Lower Extremity Veins CLINICAL HISTORY: Bilateral lower extremity swelling. TECHNIQUE: Real-time duplex ultrasound scan of the bilateral lower extremity veins integrating B-mode two-dimensional vascular structure, Doppler spectral analysis, color flow Doppler imaging and compression. COMPARISON: No relevant prior studies available. FINDINGS: Right deep veins: Unremarkable. No DVT in the right common femoral, femoral, proximal deep femoral or popliteal veins. The veins demonstrate normal color flow, are normally compressible, with normal phasic flow and/or augmentation response. Right superficial veins: Unremarkable. No thrombus in the visualized right great saphenous vein. Left deep veins: Unremarkable. No DVT in the left common femoral, femoral, proximal deep femoral or popliteal veins. The veins demonstrate normal color flow, are normally compressible, with normal phasic flow and/or augmentation response. Left superficial veins: Unremarkable. No thrombus in the visualized left great saphenous vein. Soft tissues: No popliteal cyst. IMPRESSION: Unremarkable bilateral lower extremity duplex venous ultrasound.
--- NOTE | 2018-07-19 13:00 | Consultation ---
DATE OF CONSULTATION: 07/19/2018 PAIN MANAGEMENT CONSULTATION CONSULTING PHYSICIAN: Jazzy Rosado M.D. REFERRING PHYSICIAN: dEgard Webb M.D. PHYSICIAN ASSOCIATE MUSIC PROFESSOR: Kaya Stone CHIEF COMPLAINT: Low back pain. HISTORY OF PRESENT ILLNESS: This is a 58-year-old male, who is being seen on the Med/Surg floor of [facility] for initial pain management consultation. The patient has been having pain in his lower back for the past year. It is a chronic, constant, aching, throbbing pain in his lower back, which he rates at 10/10, which gets worse with movement, and has been reduced with Dover 10/325. Upon admission, found to have cocaine in his urine and at this time, Pt will be getting MRI of lumbar spine as per registered nurse bone marrow transplant. We were consulted so that the patient would have adequate pain control while here in the hospital. PAST MEDICAL HISTORY: CHF, renal disease, cocaine use, and hypertension. PAST SURGICAL HISTORY: Denies. SOCIAL HISTORY: He is a smoker of tobacco and cocaine use. Denies alcohol abuse and no IV drug abuse. ALLERGIES: No known drug allergies. MEDICATIONS: Furosemide and hydralazine. REVIEW OF SYSTEMS: Denies rash, fever, chills, sweating, dizziness, drowsiness, blurred vision, or change in weight. No shortness of breath or chest pain. No nausea, vomiting, diarrhea, or blood in the stool or urine. No bowel or bladder incontinence. He is complaining of low back pain. PHYSICAL EXAMINATION: GENERAL: Alert, awake, and oriented. VITAL SIGNS: Blood pressure 143/90, heart rate 93, oxygen saturation 97%, respiratory rate 19, and temperature is 98.1 degrees Fahrenheit. 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 NECK: Range of motion is decreased due to the patient's condition. No tenderness. No adenopathy. LUNGS: Decreased breath sounds bilaterally. HEART: S1 and S2 regular. ABDOMEN: Soft, nontender. BACK: Range of motion is decreased in flexion and extension with tenderness to paraspinal muscles. No tenderness to trapezius or rhomboid muscles. EXTREMITIES: Upper and lower extremity motion is decreased due to the patient's condition. Sensory is reduced. Reflexes are not obtainable. No adenopathy. ASSESSMENT AND PLAN: This is a 58-year-old male with lumbar degenerative disc disease, lumbar spondylosis, cocaine abuse. The patient will continue on Dover 10/325 one tablet every four hours as needed for severe pain. MRI of lumbar spine pending results. The patient was discussed with Dr. Rosado and Dr. Rosado concurred. We will follow the patient. Thank you very much for the courtesy of this consultation. Jazzy Rosado M.D. ROSE MARIE Stone DR: AMY JOB#: [id number] CC: WING
[2018-07-19] MEDS ORDERED: HydrALAZINE 50mg tab ORAL SCH (14:00)
[2018-07-19 15:57] VITALS: BP 135/93
--- NOTE | 2018-07-19 16:04 | Cardiac Electrophysiology PN ---
Assessment/Plan Assessment/Plan 1. Non-ST elevation myocardial infarction, likely type 2 in the setting of active cocaine use and renal failure. Troponin levels are flat at 0.2, 0.2 and 0.2. Avoid beta-pablo in view of active cocaine use. On aspirin and Lipitor EF 45% 2. Hypertension. On Norvasc 5 mg bid, Hydralazine,Imdur and Clonidine patch and HD now Avoid half-way beta-blockers for active cocaine use OK to use Coreg 6.25 bid now while in hospital since last use was more than 10 days ago. Off ARMAND inhibitor and angiotensin-receptor pablo for renal failure. 3. End-stage renal disease, has not been started on hemodialysis. Cr 8.9 Just got his dialysis catheter. HD by Dr. Cm today 4. Substance use with cocaine. Avoid beta-blockers. 5. Recent pneumonia. 6. Congestive heart failure. Echocardiogram EF 45% 7. Severe anemia s/p PRBCs . JEANA RN and Dr Cm Subjective Subjective No CP or SOB. Had HD yesterday. Walking in his room. Objective Last 24 Hour Vital Signs Date Time Temp Pulse Resp B/P (MAP) Pulse Ox O2 Delivery O2 Flow Rate FiO2 07/19/18 15:57 97.3 91 20 135/93 (107) 99 07/19/18 15:15 139/92 07/19/18 12:56 137/73 07/19/18 12:00 98.3 81 18 137/73 (94) 97 07/19/18 09:11 98.1 07/19/18 08:56 Nasal Cannula 2.0 07/19/18 08:48 93 143/90 07/19/18 08:41 143/90 07/19/18 08:39 93 143/90 07/19/18 08:00 97.1 93 19 143/90 (107) 97 07/19/18 08:00 92 18 99 Nasal Cannula 2.0 28 07/19/18 07:50 94 20 97 Nasal Cannula 3.0 32 07/19/18 05:56 139/92 07/19/18 05:56 139/92 07/19/18 04:00 98.1 96 19 139/92 (108) 95 07/19/18 03:04 100 18 96 Nasal Cannula 3.0 32 07/19/18 02:54 99 22 96 Nasal Cannula 3.0 32 07/19/18 00:00 98.2 94 19 137/89 (105) 96 07/18/18 23:55 101 18 98 Nasal Cannula 3.0 32 07/18/18 23:46 100 20 96 Nasal Cannula 3.0 32 07/18/18 22:17 137/91 07/18/18 22:16 137/91 07/18/18 21:00 Nasal Cannula 2.0 07/18/18 20:59 96 18 95 Nasal Cannula 3.0 32 07/18/18 20:53 98 134/94 07/18/18 20:50 91 20 94 Nasal Cannula 3.0 32 07/18/18 20:00 98.0 98 20 134/94 (107) 96 07/18/18 16:52 97.6 07/18/18 16:20 99 18 98 Nasal Cannula 2.0 28 07/18/18 16:10 92 18 96 Nasal Cannula 2.0 28 Intake and Output 07/18/18 07/19/18 19:00 07:00 Intake Total 360 ml 1000 ml Output Total 1000 ml 200 ml Balance -640 ml 800 ml Intake Oral 120 ml 1000 ml IV Total 240 ml Output Urine Total 200 ml Hemodialysis UF 1000 ml # Voids 6 # Bowel Movements 1 Laboratory Tests Test 07/19/18 10:35 C-Reactive Protein, Quantitative 18.0 mg/dL (0.00-0.90) H Objective HEAD AND NECK: No JVD. LUNGS: Decreased breath sounds.Right IJ PermCath in place CARDIOVASCULAR: Regular S1 and S2 with no gallop or murmur. ABDOMEN: Soft. EXTREMITIES: 1 plus pitting edema. German Gray MD Jul 19, 2018 16:04
[2018-07-19 20:00] VITALS: BP 146/87
[2018-07-19] MEDS: Tamsulosin 0.4mg cap ORAL SCH (20:58)
--- NOTE | 2018-07-19 21:51 | General Progress Note ---
Assessment/Plan Assessment/Plan ASSESSMENT AND RECS # Anemia of chronic disease, multifactorial, grace on ckd --> Anemia w/u has been reviewed --> No evidence of hemolysis is noted, peripheral smear has been reviewed. --> Hgb goal >7. Transfuse prn. --> continue on epo # Congestive heart failure with acute decompensated heart failure. --> per cards management --> In tele unit --> on diuresis # Abnormal renal function, likely cardiorenal syndrome. --> Nephrology is following appreciate recs -->BRIDGETT kidneys * Mild fullness of the bilateral renal collecting systems without radiographically appreciable stone and observed bilateral ureteral jets. Findings may be related to mild bladder distention. Consider repeat exam after bladder decompression. # History of cocaine abuse with current positive tox screen. # Hypertension with hypertensive urgency. --> On Norvasc 5 mg bid, Hydralazine,Imdur and Clonidine patch. Avoid beta-blockers for active cocaine use Off ARMAND inhibitor and angiotensin-receptor pablo. # Acute coronary syndrome/non-ST elevation myocardial infarction. GREATLY APPRECIATE CONSULTATION. Date and time note entered does not reflect time and date patient was seen. Subjective Constitutional: Denies: no symptoms, chills, diaphoresis, fever, malaise, weakness, other HEENT: Denies: no symptoms, eye pain, blurred vision, tearing, double vision, ear pain, ear discharge, nose pain, nose congestion, throat pain, throat swelling, mouth pain, mouth swelling, other Cardiovascular: Denies: no symptoms, chest pain, edema, irregular heart rate, lightheadedness, palpitations, syncope, other Respiratory: Denies: no symptoms, cough, orthopnea, shortness of breath, SOB with excertion, SOB at rest, sputum, stridor, wheezing, other Gastrointestinal/Abdominal: Denies: no symptoms, abdomen distended, abdominal pain, black stools, tarry stools, blood in stool, constipated, diarrhea, difficulty swallowing, nausea, poor appetite, poor fluid intake, rectal bleeding , vomiting, other Genitourinary: Denies: no symptoms, burning, discharge, frequency, flank pain, hematuria, incontinence, pain, urgency, other Neurologic/Psychiatric: Denies: no symptoms, anxiety, depressed, emotional problems, headache, numbness, paresthesia, pre-existing deficit, seizure, tingling, tremors, weakness, other Endocrine: Denies: no symptoms, excessive sweating, flushing, intolerance to cold, intolerance to heat, increased hunger, increased thirst, increased urine, unexplained weight gain, unexplained weight loss, other Hematologic/Lymphatic: Denies: no symptoms, anemia, easy bleeding, easy bruising, other Allergies: Coded Allergies: No Known Allergies (Unverified , 07/08/18) Subjective 07/12: no events, cr trending, h/h stable, on epo 07/14: transfuse one unit 07/13, diruresed, refused mendez, seen by cards, bp better 07/15 : Pt is seen in the room, awake and alert, S/P blood transfusion, refusing HD 07/16 : Pt is awake and resting in bed. waiting on sister to make HD decision, no events 07/17 Pt is seen in the room,awake and alert, appears to be agreeable for placement of dialysis cath and dialysis . 07/18: Pt is seen in the room, No CP or SOB. Had HD today. 07/19: Pt is awake and resting in bed. Denies pain, SOB or fevers and chills. Has HD scheduled for 07/20/18, currently stable. Objective Last 24 Hour Vital Signs Date Time Temp Pulse Resp B/P (MAP) Pulse Ox O2 Delivery O2 Flow Rate FiO2 07/19/18 20:58 104 146/87 07/19/18 15:57 97.3 91 20 135/93 (107) 99 07/19/18 15:15 139/92 07/19/18 12:56 137/73 07/19/18 12:00 98.3 81 18 137/73 (94) 97 07/19/18 09:11 98.1 07/19/18 08:56 Nasal Cannula 2.0 07/19/18 08:48 93 143/90 07/19/18 08:41 143/90 07/19/18 08:39 93 143/90 07/19/18 08:00 97.1 93 19 143/90 (107) 97 07/19/18 08:00 92 18 99 Nasal Cannula 2.0 28 07/19/18 07:50 94 20 97 Nasal Cannula 3.0 32 07/19/18 05:56 139/92 07/19/18 05:56 139/92 07/19/18 04:00 98.1 96 19 139/92 (108) 95 07/19/18 03:04 100 18 96 Nasal Cannula 3.0 32 07/19/18 02:54 99 22 96 Nasal Cannula 3.0 32 07/19/18 00:00 98.2 94 19 137/89 (105) 96 07/18/18 23:55 101 18 98 Nasal Cannula 3.0 32 07/18/18 23:46 100 20 96 Nasal Cannula 3.0 32 07/18/18 22:17 137/91 07/18/18 22:16 137/91 Intake and Output 07/18/18 07/19/18 19:00 07:00 Intake Total 360 ml 1000 ml Output Total 1000 ml 200 ml Balance -640 ml 800 ml Intake Oral 120 ml 1000 ml IV Total 240 ml Output Urine Total 200 ml Hemodialysis UF 1000 ml # Voids 6 # Bowel Movements 1 Laboratory Tests 07/19/18 10:35: C-Reactive Protein, Quantitative 18.0H Height (Feet): 5 Height (Inches): 11.00 Weight (Pounds): 216 Objective Physical Exam General Appearance: A+O x2 NAD HEENT: normocephalic, atraumatic Neck: non-tender, normal alignment Respiratory/Chest: chest wall non-tender, lungs clear Cardiovascular/Chest: normal peripheral pulses, normal rate Abdomen: normal bowel sounds, non tender Extremities: normal range of motion Shane Mary MD Jul 19, 2018 21:51
[2018-07-20] VITALS: BP 127/81
[2018-07-20] MEDS: Albuterol/Ipratropium 3ml neb HHN SCH ×6 (00:58→23:55)
[2018-07-20 04:00] VITALS: BP 133/79
[2018-07-20] MEDS: HYDROcodone/Acetamin 10/325 tab ORAL PRN ×2 (05:33→15:37)
[2018-07-20] MEDS: cloNIDine 0.2mg Tab ORAL SCH (05:34)
[2018-07-20 06:32] LABS: HEMATOCRIT 24.3 % (42.0-52.0); HEMOGLOBIN 7.7 G/DL (14.2-18.0); MEAN CORPUSCULAR VOLUME 100 FL (80-99); PLATELET COUNT 254 K/UL (150-450); RED BLOOD COUNT 2.44 M/UL (4.70-6.10); RED CELL DISTRIBUTION WIDTH 13.2 % (11.6-14.8); WHITE BLOOD COUNT 6.8 K/UL (4.8-10.8)
[2018-07-20 07:11] LABS: ALANINE AMINOTRANSFERASE 14 U/L (12-78); ALBUMIN 2.4 G/DL (3.4-5.0); ALBUMIN/GLOBULIN RATIO 0.6 (1.0-2.7); ALKALINE PHOSPHATASE 79 U/L (46-116); ANION GAP 11 mmol/L (5-15); ASPARTATE AMINO TRANSFERASE 9 U/L (15-37); BILIRUBIN,TOTAL 0.2 MG/DL (0.2-1.0); BLOOD UREA NITROGEN 79 mg/dL (7-18); CALCIUM 8.6 MG/DL (8.5-10.1); CARBON DIOXIDE 27 MMOL/L (21-32); CHLORIDE 97 MMOL/L (98-107); CREATININE 6.7 MG/DL (0.55-1.30); PHOSPHORUS 5.8 MG/DL (2.5-4.9); POTASSIUM 3.8 MMOL/L (3.5-5.1); SODIUM 135 MMOL/L (136-145)
[2018-07-20 08:00] VITALS: BP 130/91
--- NOTE | 2018-07-20 08:14 | General Progress Note ---
Assessment/Plan Assessment/Plan # Anemia of chronic disease, multifactorial, grace on ckd --> Anemia w/u has been reviewed --> No evidence of hemolysis is noted, peripheral smear has been reviewed. --> Hgb goal >7. Transfuse prn. --> continue on epo sq # Congestive heart failure with acute decompensated heart failure. --> per cards management --> In tele unit --> on diuresis # Abnormal renal function, likely cardiorenal syndrome. --> Nephrology is following appreciate recs --> BRIDGETT kidneys with minimal fullness, seen by renal, echogenicity is wnl # History of cocaine abuse with current positive tox screen. --> recommend cessation # Hypertension with hypertensive urgency. --> On Norvasc 5 mg bid, Hydralazine,Imdur and Clonidine patch. Avoid beta-blockers for active cocaine use Off ARMAND inhibitor and angiotensin-receptor pablo. # Acute coronary syndrome/non-ST elevation myocardial infarction. GREATLY APPRECIATE CONSULTATION. Date and time note entered does not reflect time and date patient was seen. Subjective Constitutional: Denies: no symptoms, chills, diaphoresis, fever, malaise, weakness, other HEENT: Denies: no symptoms, eye pain, blurred vision, tearing, double vision, ear pain, ear discharge, nose pain, nose congestion, throat pain, throat swelling, mouth pain, mouth swelling, other Cardiovascular: Denies: no symptoms, chest pain, edema, irregular heart rate, lightheadedness, palpitations, syncope, other Respiratory: Denies: no symptoms, cough, orthopnea, shortness of breath, SOB with excertion, SOB at rest, sputum, stridor, wheezing, other Gastrointestinal/Abdominal: Denies: no symptoms, abdomen distended, abdominal pain, black stools, tarry stools, blood in stool, constipated, diarrhea, difficulty swallowing, nausea, poor appetite, poor fluid intake, rectal bleeding , vomiting, other Genitourinary: Denies: no symptoms, burning, discharge, frequency, flank pain, hematuria, incontinence, pain, urgency, other Neurologic/Psychiatric: Denies: no symptoms, anxiety, depressed, emotional problems, headache, numbness, paresthesia, pre-existing deficit, seizure, tingling, tremors, weakness, other Endocrine: Denies: no symptoms, excessive sweating, flushing, intolerance to cold, intolerance to heat, increased hunger, increased thirst, increased urine, unexplained weight gain, unexplained weight loss, other Allergies: Coded Allergies: No Known Allergies (Unverified , 07/08/18) Subjective 07/12: no events, cr trending, h/h stable, on epo 07/14: transfuse one unit 07/13, diruresed, refused mendez, seen by cards, bp better 07/15 : Pt is seen in the room, awake and alert, S/P blood transfusion, refusing HD 07/16 : Pt is awake and resting in bed. waiting on sister to make HD decision, no events 07/17 Pt is seen in the room,awake and alert, appears to be agreeable for placement of dialysis cath and dialysis . 07/18: Pt is seen in the room, No CP or SOB. Had HD today. 07/19: Pt is awake and resting in bed. Denies pain, SOB or fevers and chills. Has HD scheduled for 07/20/18, currently stable. 07/20: received hand held nebulizer, no other events, no f.c Objective Last 24 Hour Vital Signs Date Time Temp Pulse Resp B/P (MAP) Pulse Ox O2 Delivery O2 Flow Rate FiO2 07/20/18 08:03 95 14 100 Nasal Cannula 2.0 28 07/20/18 07:56 97 12 Nasal Cannula 2.0 28 07/20/18 07:56 95 12 100 Nasal Cannula 2.0 28 07/20/18 05:34 133/79 07/20/18 04:00 98.0 99 18 133/79 (97) 98 07/20/18 00:57 92 20 96 Nasal Cannula 2.0 32 07/20/18 00:00 98.0 97 18 127/81 (96) 96 07/19/18 22:18 149/93 07/19/18 21:00 Nasal Cannula 2.0 07/19/18 20:58 104 146/87 07/19/18 20:00 97.4 104 20 146/87 (106) 95 07/19/18 15:57 97.3 91 20 135/93 (107) 99 07/19/18 15:15 139/92 07/19/18 12:56 137/73 07/19/18 12:00 98.3 81 18 137/73 (94) 97 07/19/18 09:11 98.1 07/19/18 08:56 Nasal Cannula 2.0 07/19/18 08:48 93 143/90 07/19/18 08:41 143/90 07/19/18 08:39 93 143/90 Intake and Output 07/19/18 07/20/18 19:00 07:00 Intake Total 720 ml Balance 720 ml Intake Oral 720 ml Laboratory Tests 07/19/18 10:35: C-Reactive Protein, Quantitative 18.0H 07/20/18 04:45: White Blood Count 6.8, Red Blood Count 2.44L, Hemoglobin 7.7L, Hematocrit 24.3L , Mean Corpuscular Volume 100H, Mean Corpuscular Hemoglobin 31.7H, Mean Corpuscular Hemoglobin Concent 31.7L, Red Cell Distribution Width 13.2, Platelet Count 254, Mean Platelet Volume 6.9, Neutrophils (%) (Auto) , Lymphocytes (%) (Auto) , Monocytes (%) (Auto) , Eosinophils (%) (Auto) , Basophils (%) (Auto) , Neutrophils % (Manual) [Pending], Lymphocytes % (Manual) [Pending], Platelet Estimate [Pending], Platelet Morphology [Pending], Sodium Level 135L, Potassium Level 3.8, Chloride Level 97L, Carbon Dioxide Level 27, Anion Gap 11, Blood Urea Nitrogen 79H, Creatinine 6.7H, Estimat Glomerular Filtration Rate 10.4, Glucose Level 132H, Uric Acid 5.2, Calcium Level 8.6, Phosphorus Level 5.8H, Magnesium Level 2.1, Total Bilirubin 0.2, Aspartate Amino Transf (AST/SGOT) 9L, Alanine Aminotransferase (ALT/SGPT) 14, Alkaline Phosphatase 79, Pro-B-Type Natriuretic Peptide 8077H, Total Protein 6.4, Albumin 2.4L, Globulin 4.0, Albumin/Globulin Ratio 0.6L Height (Feet): 5 Height (Inches): 11.00 Weight (Pounds): 223 General Appearance: no apparent distress EENT: TMs normal Neck: supple Cardiovascular: regular rhythm Respiratory/Chest: lungs clear Extremities: normal inspection Neurologic: alert Skin: normal pigmentation Objective Physical Exam General Appearance: A+O x2 NAD HEENT: normocephalic, atraumatic Neck: non-tender, normal alignment Respiratory/Chest: chest wall non-tender, lungs clear Cardiovascular/Chest: normal peripheral pulses, normal rate Abdomen: normal bowel sounds, non tender Extremities: normal range of motion Shane Mary MD Jul 20, 2018 08:14
[2018-07-20] MEDS: Carvedilol 12.5mg tab ORAL SCH (09:06)
[2018-07-20] MEDS: Aspirin Baby 81mg ORAL SCH (09:06)
[2018-07-20] MEDS: Docusate 100mg cap ORAL SCH ×3 (09:07→17:44)
[2018-07-20] MEDS: Lisinopril 10mg tab ORAL SCH (09:07)
[2018-07-20] MEDS: Imdur 30mg tab ORAL SCH (09:07)
[2018-07-20] MEDS: Heparin 5000 units/ml inj SUBQ SCH ×2 (09:12→22:01)
[2018-07-20] MEDS: Allopurinol 100mg Tab ORAL SCH (09:17)
--- NOTE | 2018-07-20 11:20 | Nephrology Progress Note ---
Assessment/Plan Problem List: (1) ARF (acute renal failure) (2) Cocaine abuse (3) Acute exacerbation of CHF (congestive heart failure) (4) Hypertensive cardiomegaly with heart failure Assessment Acute on Chronic renal failure Anemia Elevated troponin Hypertensive renal and heart disease Cocaine abuse Cardiomyopathy Plan dialysed 07/18 next HD 07/20 aim to UF 3 liters adjust bp meds transfuse one unit 07/[address] Moura 2D Echo 55% ej fx BRIDGETT kidneys * Mild fullness of the bilateral renal collecting systems without radiographically appreciable stone and observed bilateral ureteral jets. Findings may be related to mild bladder distention. Consider repeat exam after bladder decompression. monitor renal parameters Avoid nephrotoxics renal diet flomax Subjective ROS Limited/Unobtainable: No Constitutional: Reports: malaise Objective Objective Last 24 Hour Vital Signs Date Time Temp Pulse Resp B/P (MAP) Pulse Ox O2 Delivery O2 Flow Rate FiO2 07/20/18 09:07 133/79 07/20/18 09:07 133/79 07/20/18 09:06 95 133/79 07/20/18 09:06 95 133/79 07/20/18 08:03 95 14 100 Nasal Cannula 2.0 28 07/20/18 08:00 97.2 100 20 130/91 (104) 98 07/20/18 07:56 97 12 Nasal Cannula 2.0 28 07/20/18 07:56 95 12 100 Nasal Cannula 2.0 28 07/20/18 05:34 133/79 07/20/18 04:00 98.0 99 18 133/79 (97) 98 07/20/18 00:57 92 20 96 Nasal Cannula 2.0 32 07/20/18 00:00 98.0 97 18 127/81 (96) 96 07/19/18 22:18 149/93 07/19/18 21:00 Nasal Cannula 2.0 07/19/18 20:58 104 146/87 07/19/18 20:00 97.4 104 20 146/87 (106) 95 07/19/18 15:57 97.3 91 20 135/93 (107) 99 07/19/18 15:15 139/92 07/19/18 12:56 137/73 07/19/18 12:00 98.3 81 18 137/73 (94) 97 Intake and Output 07/19/18 07/20/18 19:00 07:00 Intake Total 720 ml Balance 720 ml Intake Oral 720 ml Laboratory Tests 07/20/18 04:45: White Blood Count 6.8, Red Blood Count 2.44L, Hemoglobin 7.7L, Hematocrit 24.3L , Mean Corpuscular Volume 100H, Mean Corpuscular Hemoglobin 31.7H, Mean Corpuscular Hemoglobin Concent 31.7L, Red Cell Distribution Width 13.2, Platelet Count 254, Mean Platelet Volume 6.9, Neutrophils (%) (Auto) , Lymphocytes (%) (Auto) , Monocytes (%) (Auto) , Eosinophils (%) (Auto) , Basophils (%) (Auto) , Differential Total Cells Counted 100, Neutrophils % ( Manual) 81H, Lymphocytes % (Manual) 7L, Monocytes % (Manual) 10, Eosinophils % ( Manual) 2, Basophils % (Manual) 0, Band Neutrophils 0, Platelet Estimate Adequate, Platelet Morphology Normal, Hypochromasia 1+, Macrocytosis 1+, Sodium Level 135L, Potassium Level 3.8, Chloride Level 97L, Carbon Dioxide Level 27, Anion Gap 11, Blood Urea Nitrogen 79H, Creatinine 6.7H, Estimat Glomerular Filtration Rate 10.4, Glucose Level 132H, Uric Acid 5.2, Calcium Level 8.6, Phosphorus Level 5.8H, Magnesium Level 2.1, Total Bilirubin 0.2, Aspartate Amino Transf (AST/SGOT) 9L, Alanine Aminotransferase (ALT/SGPT) 14, Alkaline Phosphatase 79, Pro-B-Type Natriuretic Peptide 8077H, Total Protein 6.4, Albumin 2.4L, Globulin 4.0, Albumin/Globulin Ratio 0.6L Height (Feet): 5 Height (Inches): 11.00 Weight (Pounds): 223 General Appearance: no apparent distress Objective no change Richar Cm MD Jul 20, 2018 11:19
[2018-07-20 12:00] VITALS: BP 128/70
--- NOTE | 2018-07-20 12:11 | General Progress Note ---
Assessment/Plan Problem List: (1) Cocaine abuse ICD Codes: F14.10 - Cocaine abuse, uncomplicated SNOMED: 91625726 (2) MDD (major depressive disorder) ICD Codes: F32.9 - Major depressive disorder, single episode, unspecified SNOMED: 392329910 (3) Cluster B personality disorder ICD Codes: F60.9 - Personality disorder, unspecified SNOMED: 5818729 Status: stable Assessment/Plan the pt has capacity to refuse meds the pt may leave ama the pt refuses psych meds the pt was provided with ro/st/educate about the compliance Subjective Neurologic/Psychiatric: Reports: anxiety, depressed Allergies: Coded Allergies: No Known Allergies (Unverified , 07/08/18) Subjective the pt is more cooperative no behavioral issues at this time. Objective Last 24 Hour Vital Signs Date Time Temp Pulse Resp B/P (MAP) Pulse Ox O2 Delivery O2 Flow Rate FiO2 07/20/18 09:07 133/79 07/20/18 09:07 133/79 07/20/18 09:06 95 133/79 07/20/18 09:06 95 133/79 07/20/18 09:00 Nasal Cannula 2.0 07/20/18 08:03 95 14 100 Nasal Cannula 2.0 28 07/20/18 08:00 97.2 100 20 130/91 (104) 98 07/20/18 07:56 97 12 Nasal Cannula 2.0 28 07/20/18 07:56 95 12 100 Nasal Cannula 2.0 28 07/20/18 05:34 133/79 07/20/18 04:00 98.0 99 18 133/79 (97) 98 07/20/18 00:57 92 20 96 Nasal Cannula 2.0 32 07/20/18 00:00 98.0 97 18 127/81 (96) 96 07/19/18 22:18 149/93 07/19/18 21:00 Nasal Cannula 2.0 07/19/18 20:58 104 146/87 07/19/18 20:00 97.4 104 20 146/87 (106) 95 07/19/18 15:57 97.3 91 20 135/93 (107) 99 07/19/18 15:15 139/92 07/19/18 12:56 137/73 Intake and Output 07/19/18 07/20/18 19:00 07:00 Intake Total 720 ml Balance 720 ml Intake Oral 720 ml Laboratory Tests 07/20/18 04:45: White Blood Count 6.8, Red Blood Count 2.44L, Hemoglobin 7.7L, Hematocrit 24.3L , Mean Corpuscular Volume 100H, Mean Corpuscular Hemoglobin 31.7H, Mean Corpuscular Hemoglobin Concent 31.7L, Red Cell Distribution Width 13.2, Platelet Count 254, Mean Platelet Volume 6.9, Neutrophils (%) (Auto) , Lymphocytes (%) (Auto) , Monocytes (%) (Auto) , Eosinophils (%) (Auto) , Basophils (%) (Auto) , Differential Total Cells Counted 100, Neutrophils % ( Manual) 81H, Lymphocytes % (Manual) 7L, Monocytes % (Manual) 10, Eosinophils % ( Manual) 2, Basophils % (Manual) 0, Band Neutrophils 0, Platelet Estimate Adequate, Platelet Morphology Normal, Hypochromasia 1+, Macrocytosis 1+, Sodium Level 135L, Potassium Level 3.8, Chloride Level 97L, Carbon Dioxide Level 27, Anion Gap 11, Blood Urea Nitrogen 79H, Creatinine 6.7H, Estimat Glomerular Filtration Rate 10.4, Glucose Level 132H, Uric Acid 5.2, Calcium Level 8.6, Phosphorus Level 5.8H, Magnesium Level 2.1, Total Bilirubin 0.2, Aspartate Amino Transf (AST/SGOT) 9L, Alanine Aminotransferase (ALT/SGPT) 14, Alkaline Phosphatase 79, C-Reactive Protein, Quantitative 14.3H, Pro-B-Type Natriuretic Peptide 8077H, Total Protein 6.4, Albumin 2.4L, Globulin 4.0, Albumin/Globulin Ratio 0.6L Height (Feet): 5 Height (Inches): 11.00 Weight (Pounds): 223 General Appearance: no apparent distress, alert Neurologic: oriented x 3, responsive, depressed affect Jakob Trent MD Jul 20, 2018 12:11
--- NOTE | 2018-07-20 13:29 | Pulmonology Progress Note ---
Assessment/Plan Problems: (1) Epistaxis (2) Acute exacerbation of CHF (congestive heart failure) (3) Hypertensive cardiomegaly with heart failure (4) ACS (acute coronary syndrome) (5) Cocaine abuse (6) ARF (acute renal failure) Assessment/Plan ASSESSMENT: The patient is a 58-year-old male with history of cocaine and tobacco abuse, congestive heart failure, and renal impairment, presenting with decompensated heart failure and abnormal renal function with marked uremia. He has previously been told he needs dialysis. He is now being admitted for acute coronary syndrome and likely need for dialysis. PROBLEM LIST: 1. Congestive heart failure with acute decompensated heart failure. 2. Abnormal renal function, likely cardiorenal syndrome. 3. History of cocaine abuse with current positive tox screen. 4. Anemia. 5. Hypertension with hypertensive urgency. 6. Acute coronary syndrome/non-ST elevation myocardial infarction. 7. Acute on chronic LBP with radiculopathy TREATMENT PLAN: -HD per renal, increase UF as able -F/U Duplex -Control BP -F/U cards and renal recs -Cardiac diet -F/U heme recs, needs GI eval at some point but currently unstable for endoscopy -DVT Px: hep SQ -Pain control/supportive care -MRI LS no contrast - RESULTS PENDING -F/U pain management recs -Appreciate psych eval, has capacity, F/U recs -SW assistance in placement Subjective Allergies: Coded Allergies: No Known Allergies (Unverified , 07/08/18) Subjective AFVSS stable O2 needs Still swollen No change in chronic back pain, feels muscles are tight No SOB, no CP, no F/C Objective Last 24 Hour Vital Signs Date Time Temp Pulse Resp B/P (MAP) Pulse Ox O2 Delivery O2 Flow Rate FiO2 07/20/18 12:00 98.1 90 20 128/70 (89) 98 07/20/18 09:07 133/79 07/20/18 09:07 133/79 07/20/18 09:06 95 133/79 07/20/18 09:06 95 133/79 07/20/18 09:00 Nasal Cannula 2.0 07/20/18 08:03 95 14 100 Nasal Cannula 2.0 28 07/20/18 08:00 97.2 100 20 130/91 (104) 98 07/20/18 07:56 97 12 Nasal Cannula 2.0 28 07/20/18 07:56 95 12 100 Nasal Cannula 2.0 28 07/20/18 05:34 133/79 07/20/18 04:00 98.0 99 18 133/79 (97) 98 07/20/18 00:57 92 20 96 Nasal Cannula 2.0 32 07/20/18 00:00 98.0 97 18 127/81 (96) 96 07/19/18 22:18 149/93 07/19/18 21:00 Nasal Cannula 2.0 07/19/18 20:58 104 146/87 07/19/18 20:00 97.4 104 20 146/87 (106) 95 07/19/18 15:57 97.3 91 20 135/93 (107) 99 07/19/18 15:15 139/92 Intake and Output 07/19/18 07/20/18 19:00 07:00 Intake Total 720 ml Balance 720 ml Intake Oral 720 ml General Appearance: no acute distress, cachetic HEENT: normocephalic, atraumatic, anicteric, mucous membranes moist Respiratory/Chest: chest wall non-tender, lungs clear, normal breath sounds, no respiratory distress, no accessory muscle use Cardiovascular: normal peripheral pulses, normal rate, regular rhythm Abdomen: normal bowel sounds, soft, non tender, no organomegaly, non distended , no mass Extremities: no cyanosis, no clubbing, no edema Laboratory Tests 07/20/18 04:45: White Blood Count 6.8, Red Blood Count 2.44L, Hemoglobin 7.7L, Hematocrit 24.3L , Mean Corpuscular Volume 100H, Mean Corpuscular Hemoglobin 31.7H, Mean Corpuscular Hemoglobin Concent 31.7L, Red Cell Distribution Width 13.2, Platelet Count 254, Mean Platelet Volume 6.9, Neutrophils (%) (Auto) , Lymphocytes (%) (Auto) , Monocytes (%) (Auto) , Eosinophils (%) (Auto) , Basophils (%) (Auto) , Differential Total Cells Counted 100, Neutrophils % ( Manual) 81H, Lymphocytes % (Manual) 7L, Monocytes % (Manual) 10, Eosinophils % ( Manual) 2, Basophils % (Manual) 0, Band Neutrophils 0, Platelet Estimate Adequate, Platelet Morphology Normal, Hypochromasia 1+, Macrocytosis 1+, Sodium Level 135L, Potassium Level 3.8, Chloride Level 97L, Carbon Dioxide Level 27, Anion Gap 11, Blood Urea Nitrogen 79H, Creatinine 6.7H, Estimat Glomerular Filtration Rate 10.4, Glucose Level 132H, Uric Acid 5.2, Calcium Level 8.6, Phosphorus Level 5.8H, Magnesium Level 2.1, Total Bilirubin 0.2, Aspartate Amino Transf (AST/SGOT) 9L, Alanine Aminotransferase (ALT/SGPT) 14, Alkaline Phosphatase 79, C-Reactive Protein, Quantitative 14.3H, Pro-B-Type Natriuretic Peptide 8077H, Total Protein 6.4, Albumin 2.4L, Globulin 4.0, Albumin/Globulin Ratio 0.6L Current Medications Medications (Trade) Dose Ordered Sig/Harish Route PRN Reason Start Time Stop Time Status Last Admin Dose Admin Acetaminophen (Tylenol) 650 mg Q4H PRN ORAL Mild Pain/Temp > 100.5 07/17/18 23:15 08/07/18 23:14 07/20/18 09:17 Acetaminophen/ Hydrocodone Bitart ([place] 10/325) 1 tab Q4H PRN ORAL Severe Pain (Pain Scale 7-10) 07/17/18 22:45 07/23/18 18:44 07/20/18 05:33 Albuterol/ Ipratropium (Albuterol/ Ipratropium) 3 ml Q4HRT HHN 07/19/18 23:00 07/24/18 22:59 07/20/18 07:56 Allopurinol (Zyloprim) 200 mg DAILY ORAL 07/18/18 09:00 08/11/18 08:59 07/20/18 09:17 Amlodipine Besylate (Norvasc) 10 mg DAILY ORAL 07/19/18 09:00 08/18/18 08:59 07/20/18 09:06 Aspirin (ASA) 81 mg DAILY ORAL 07/18/18 09:00 08/08/18 08:59 07/20/18 09:06 Carvedilol (Coreg) 25 mg EVERY 12 HOURS ORAL 07/20/18 21:00 08/19/18 20:59 Clonidine HCl (Catapres Tab) 0.1 mg Q8HR ORAL 07/20/18 14:00 08/19/18 13:59 Cyclobenzaprine HCl (Flexeril) 10 mg TIDPRN PRN ORAL Muscle Spasm 07/18/18 12:15 08/16/18 12:14 07/19/18 08:41 Dextrose (Dextrose 50%) 25 ml Q30M PRN IV Hypoglycemia 07/17/18 21:15 08/07/18 23:14 Dextrose (Dextrose 50%) 50 ml Q30M PRN IV Hypoglycemia 07/17/18 21:15 08/07/18 23:14 Diphenhydramine HCl (Benadryl) 25 mg Q6H PRN ORAL Itching/Pruritis 07/17/18 23:15 08/07/18 23:14 07/18/18 01:40 Docusate Sodium (Colace) 100 mg THREE TIMES A DAY ORAL 07/18/18 09:00 08/08/18 17:59 07/20/18 09:07 Epoetin [place] (Procrit (for non ESRD use)) 10,000 units FRI-FRI-FRI SUBQ 07/17/18 22:00 08/12/18 21:59 07/17/18 22:30 Gabapentin (Neurontin) 200 mg THREE TIMES A DAY ORAL 07/18/18 18:00 08/17/18 17:59 07/20/18 09:07 Heparin Sodium (Porcine) (Heparin 5000 units/ml) 5,000 units EVERY 12 HOURS SUBQ 07/17/18 22:00 08/14/18 21:59 07/20/18 09:12 Iron Sucrose 200 mg/Sodium Chloride 120 ml @ 240 mls/hr ONCE IV 07/20/18 21:00 07/20/18 22:00 Isosorbide Mononitrate (Imdur) 60 mg DAILY ORAL 07/18/18 09:00 08/11/18 08:59 07/20/18 09:07 Lisinopril (Zestril) 10 mg DAILY ORAL 07/20/18 09:00 08/19/18 08:59 07/20/18 09:07 Minoxidil (Loniten) 5 mg Q4H PRN ORAL bp over 165 syst 07/17/18 21:45 08/10/18 13:44 Pantoprazole (Protonix) 40 mg EVERY 12 HOURS ORAL 07/17/18 22:00 08/10/18 21:59 07/20/18 09:06 Sevelamer Carbonate (Renvela) 2,400 mg THREE TIMES A DAY ORAL 07/18/18 09:00 08/08/18 17:59 07/20/18 09:05 Tamsulosin HCl (Flomax) 0.4 mg QHS ORAL 07/18/18 21:00 08/09/18 12:52 07/19/18 20:58 Edgard Webb MD Jul 20, 2018 13:29
[2018-07-20 16:00] VITALS: BP 140/80
--- NOTE | 2018-07-20 16:16 | Cardiac Electrophysiology PN ---
Assessment/Plan Assessment/Plan 1. Non-ST elevation myocardial infarction, likely type 2 in the setting of active cocaine use and renal failure. Troponin levels are flat at 0.2, 0.2 and 0.2. Avoid beta-pablo in view of active cocaine use. On aspirin and Lipitor EF 45% 2. Hypertension. On Norvasc 10 daily, Imdur 60, Lisinopril 10 daily, Clonidine 0.1 tid and HD Avoid m[facility]p beta-blockers for active cocaine use 3. End-stage renal disease, has not been started on hemodialysis. Cr 8.9 Just got his dialysis catheter. HD by Dr. Cm today 4. Substance use with cocaine. Avoid beta-blockers. 5. Recent pneumonia. 6. Congestive heart failure. Echocardiogram EF 45% 7. Severe anemia s/p PRBCs . JEANA RN and Dr Cm Subjective Subjective No CP or SOB. Had HD today again. Objective Last 24 Hour Vital Signs Date Time Temp Pulse Resp B/P (MAP) Pulse Ox O2 Delivery O2 Flow Rate FiO2 07/20/18 14:00 128/70 07/20/18 12:00 98.1 90 20 128/70 (89) 98 07/20/18 09:07 133/79 07/20/18 09:07 133/79 07/20/18 09:06 95 133/79 07/20/18 09:06 95 133/79 07/20/18 09:00 Nasal Cannula 2.0 07/20/18 08:03 95 14 100 Nasal Cannula 2.0 28 07/20/18 08:00 97.2 100 20 130/91 (104) 98 07/20/18 07:56 97 12 Nasal Cannula 2.0 28 07/20/18 07:56 95 12 100 Nasal Cannula 2.0 28 07/20/18 05:34 133/79 07/20/18 04:00 98.0 99 18 133/79 (97) 98 07/20/18 00:57 92 20 96 Nasal Cannula 2.0 32 07/20/18 00:00 98.0 97 18 127/81 (96) 96 07/19/18 22:18 149/93 07/19/18 21:00 Nasal Cannula 2.0 07/19/18 20:58 104 146/87 07/19/18 20:00 97.4 104 20 146/87 (106) 95 Intake and Output 07/19/18 07/20/18 19:00 07:00 Intake Total 720 ml Balance 720 ml Intake Oral 720 ml Laboratory Tests Test 07/20/18 04:45 White Blood Count 6.8 K/UL (4.8-10.8) Red Blood Count 2.44 M/UL (4.70-6.10) L Hemoglobin 7.7 G/DL (14.2-18.0) L Hematocrit 24.3 % (42.0-52.0) L Mean Corpuscular Volume 100 FL (80-99) H Mean Corpuscular Hemoglobin 31.7 PG (27.0-31.0) H Mean Corpuscular Hemoglobin Concent 31.7 G/DL (32.0-36.0) L Red Cell Distribution Width 13.2 % (11.6-14.8) Platelet Count 254 K/UL (150-450) Mean Platelet Volume 6.9 FL (6.5-10.1) Neutrophils (%) (Auto) % (45.0-75.0) Lymphocytes (%) (Auto) % (20.0-45.0) Monocytes (%) (Auto) % (1.0-10.0) Eosinophils (%) (Auto) % (0.0-3.0) Basophils (%) (Auto) % (0.0-2.0) Differential Total Cells Counted 100 Neutrophils % (Manual) 81 % (45-75) H Lymphocytes % (Manual) 7 % (20-45) L Monocytes % (Manual) 10 % (1-10) Eosinophils % (Manual) 2 % (0-3) Basophils % (Manual) 0 % (0-2) Band Neutrophils 0 % (0-8) Platelet Estimate Adequate Platelet Morphology Normal Hypochromasia 1+ Macrocytosis 1+ Sodium Level 135 MMOL/L (136-145) L Potassium Level 3.8 MMOL/L (3.5-5.1) Chloride Level 97 MMOL/L (98-107) L Carbon Dioxide Level 27 MMOL/L (21-32) Anion Gap 11 mmol/L (5-15) Blood Urea Nitrogen 79 mg/dL (7-18) H Creatinine 6.7 MG/DL (0.55-1.30) H Estimat Glomerular Filtration Rate 10.4 mL/min (>60) Glucose Level 132 MG/DL (74-106) H Uric Acid 5.2 MG/DL (2.6-7.2) Calcium Level 8.6 MG/DL (8.5-10.1) Phosphorus Level 5.8 MG/DL (2.5-4.9) H Magnesium Level 2.1 MG/DL (1.8-2.4) Total Bilirubin 0.2 MG/DL (0.2-1.0) Aspartate Amino Transf (AST/SGOT) 9 U/L (15-37) L Alanine Aminotransferase (ALT/SGPT) 14 U/L (12-78) Alkaline Phosphatase 79 U/L (46-116) C-Reactive Protein, Quantitative 14.3 mg/dL (0.00-0.90) H Pro-B-Type Natriuretic Peptide 8077 pg/mL (0-125) H Total Protein 6.4 G/DL (6.4-8.2) Albumin 2.4 G/DL (3.4-5.0) L Globulin 4.0 g/dL Albumin/Globulin Ratio 0.6 (1.0-2.7) L Objective HEAD AND NECK: No JVD. LUNGS: Decreased breath sounds.Right IJ PermCath in place CARDIOVASCULAR: Regular S1 and S2 with no gallop or murmur. ABDOMEN: Soft. EXTREMITIES: 1 plus pitting edema. German Gray MD Jul 20, 2018 16:16
--- NOTE | 2018-07-20 16:34 | Diagnostic Imaging Report ---
Indication: Low back pain with radiculopathy Technique: Sagittal T1 and T2 fast spin echo, sagittal STIR, axial T1 and T2 fast spin-echo images of the lumbar spine Comparison: none Findings: Images are somewhat degraded due to considerable image noise. Bony alignment is normal. Vertebral body heights are preserved. There is increased T1 and T2 signal within the bilateral L4 pedicles, increased T2 signal and T1 signal within the bilateral L5 pedicles. Suspected this represents reactive change related to adjacent facet arthrosis. Vertebral body marrow signal is otherwise normal. The conus medullaris terminates at the L1 level. At L3-4, there is mild circumferential annular bulge which does not significant compromise the spinal canal. May result in slight compromise of the bilateral neural foramina. The disc space is preserved. At L4-5, there is mild degenerative disc narrowing. There is circumferential annular bulge, which, in combination with facet and ligament flavum hypertrophy results in moderate narrowing of the spinal canal. There is also mild to moderate narrowing of the bilateral neural foramina, due to the bulging disc as well as to facet hypertrophy. There is facet arthrosis with some fluid within the facets bilaterally. And L5-S1, there is circumferential annular bulge which does not significantly compromise the spinal canal. The bulging disc and facet hypertrophy does result in mild to moderate bilateral neural foraminal stenosis. There is facet arthrosis with some fluid within the bilateral facets. At the remaining disc levels, no significant disc bulge or protrusion, spinal stenosis, or neural foraminal stenosis. The included extra spinal soft tissues are unremarkable. Impression: Degenerative changes as detailed on a level by level basis above, including moderate spinal stenosis at L4-5 and multilevel neural foraminal stenosis No acute abnormality
--- NOTE | 2018-07-20 17:46 | General Progress Note ---
Assessment/Plan Assessment/Plan (1) Lumbar DDD (2) Lumbar Spondylosis (3) Cocaine Abuse Patient will be continued on [place] as needed. D/w Dr. Rosado and he concurred. Subjective Date patient seen: Jul 20, 2018 Time patient seen: 05:30 - pm Allergies: Coded Allergies: No Known Allergies (Unverified , 07/08/18) Subjective REVIEW OF SYSTEMS: Denies rash, fever, chills, sweating, dizziness, drowsiness, blurred vision, or change in weight. No shortness of breath or chest pain. No nausea, vomiting, diarrhea, or blood in the stool or urine. No bowel or bladder incontinence. He is complaining of low back pain. SUBJECTIVE: Patient is in bed and showing no signs of pain or distress. Pain has been well tolerated on the [place]. MRI was reviewed. He has no new complaints at this time. Objective Last 24 Hour Vital Signs Date Time Temp Pulse Resp B/P (MAP) Pulse Ox O2 Delivery O2 Flow Rate FiO2 07/20/18 14:00 128/70 07/20/18 12:00 98.1 90 20 128/70 (89) 98 07/20/18 09:07 133/79 07/20/18 09:07 133/79 07/20/18 09:06 95 133/79 07/20/18 09:06 95 133/79 07/20/18 09:00 Nasal Cannula 2.0 07/20/18 08:03 95 14 100 Nasal Cannula 2.0 28 07/20/18 08:00 97.2 100 20 130/91 (104) 98 07/20/18 07:56 97 12 Nasal Cannula 2.0 28 07/20/18 07:56 95 12 100 Nasal Cannula 2.0 28 07/20/18 05:34 133/79 07/20/18 04:00 98.0 99 18 133/79 (97) 98 07/20/18 00:57 92 20 96 Nasal Cannula 2.0 32 07/20/18 00:00 98.0 97 18 127/81 (96) 96 07/19/18 22:18 149/93 07/19/18 21:00 Nasal Cannula 2.0 07/19/18 20:58 104 146/87 07/19/18 20:00 97.4 104 20 146/87 (106) 95 Intake and Output 07/19/18 07/20/18 19:00 07:00 Intake Total 720 ml Balance 720 ml Intake Oral 720 ml Laboratory Tests 07/20/18 04:45: White Blood Count 6.8, Red Blood Count 2.44L, Hemoglobin 7.7L, Hematocrit 24.3L , Mean Corpuscular Volume 100H, Mean Corpuscular Hemoglobin 31.7H, Mean Corpuscular Hemoglobin Concent 31.7L, Red Cell Distribution Width 13.2, Platelet Count 254, Mean Platelet Volume 6.9, Neutrophils (%) (Auto) , Lymphocytes (%) (Auto) , Monocytes (%) (Auto) , Eosinophils (%) (Auto) , Basophils (%) (Auto) , Differential Total Cells Counted 100, Neutrophils % ( Manual) 81H, Lymphocytes % (Manual) 7L, Monocytes % (Manual) 10, Eosinophils % ( Manual) 2, Basophils % (Manual) 0, Band Neutrophils 0, Platelet Estimate Adequate, Platelet Morphology Normal, Hypochromasia 1+, Macrocytosis 1+, Sodium Level 135L, Potassium Level 3.8, Chloride Level 97L, Carbon Dioxide Level 27, Anion Gap 11, Blood Urea Nitrogen 79H, Creatinine 6.7H, Estimat Glomerular Filtration Rate 10.4, Glucose Level 132H, Uric Acid 5.2, Calcium Level 8.6, Phosphorus Level 5.8H, Magnesium Level 2.1, Total Bilirubin 0.2, Aspartate Amino Transf (AST/SGOT) 9L, Alanine Aminotransferase (ALT/SGPT) 14, Alkaline Phosphatase 79, C-Reactive Protein, Quantitative 14.3H, Pro-B-Type Natriuretic Peptide 8077H, Total Protein 6.4, Albumin 2.4L, Globulin 4.0, Albumin/Globulin Ratio 0.6L Height (Feet): 5 Height (Inches): 11.00 Weight (Pounds): 223 Objective GENERAL: Alert, awake, and oriented. LUNGS: Decreased breath sounds bilaterally. HEART: S1 and S2 regular. ABDOMEN: Soft, nontender. EXTREMITIES: No CCE NEURO: No changes. Procedure: MRI L Spine no Contrast Indication: Low back pain with radiculopathy Bony alignment is normal. Vertebral body heights are preserved. There is increased T1 and T2 signal within the bilateral L4 pedicles, increased T2 signal and T1 signal within the bilateral L5 pedicles. Suspected this represents reactive change related to adjacent facet arthrosis. Vertebral body marrow signal is otherwise normal. The conus medullaris terminates at the L1 level. At L3-4, there is mild circumferential annular bulge which does not significant compromise the spinal canal. May result in slight compromise of the bilateral neural foramina. The disc space is preserved. At L4-5, there is mild degenerative disc narrowing. There is circumferential annular bulge, which, in combination with facet and ligament flavum hypertrophy results in moderate narrowing of the spinal canal. There is also mild to moderate narrowing of the bilateral neural foramina, due to the bulging disc as well as to facet hypertrophy. There is facet arthrosis with some fluid within the facets bilaterally. And L5-S1, there is circumferential annular bulge which does not significantly compromise the spinal canal. The bulging disc and facet hypertrophy does result in mild to moderate bilateral neural foraminal stenosis. There is facet arthrosis with some fluid within the bilateral facets. At the remaining disc levels, no significant disc bulge or protrusion, spinal stenosis, or neural foraminal stenosis. The included extra spinal soft tissues are unremarkable. Impression: Degenerative changes as detailed on a level by level basis above, including moderate spinal stenosis at L4-5 and multilevel neural foraminal stenosis No acute abnormality James Ramirez Jul 20, 2018 17:46
[2018-07-20] MEDS: Cyclobenzaprine 10mg Tab ORAL PRN (17:55)
[2018-07-20 20:00] VITALS: BP 141/95
[2018-07-20] MEDS ORDERED: Iron Sucrose 200 MG in NS 110 ML IV SCH (21:00)
[2018-07-20] MEDS: Tamsulosin 0.4mg cap ORAL SCH (21:58)
[2018-07-20] MEDS: Epogen (for non ESRD use) SUBQ SCH (21:58)
[2018-07-20] MEDS: Carvedilol 25mg Tab ORAL SCH (21:58)
[2018-07-21] VITALS: BP 147/84
[2018-07-21] MEDS: Albuterol/Ipratropium 3ml neb HHN SCH ×6 (03:00→23:11)
[2018-07-21 04:00] VITALS: BP 142/67
[2018-07-21 06:13] LABS: BASOPHILS % (AUTO) 1.3 % (0.0-2.0); EOSINOPHILS % (AUTO) 4.9 % (0.0-3.0); HEMATOCRIT 26.2 % (42.0-52.0); HEMOGLOBIN 8.3 G/DL (14.2-18.0); LYMPHOCYTES % (AUTO) 4.3 % (20.0-45.0); MEAN CORPUSCULAR VOLUME 100 FL (80-99); NEUTROPHILS % (AUTO) 74.4 % (45.0-75.0); PLATELET COUNT 266 K/UL (150-450); RED BLOOD COUNT 2.63 M/UL (4.70-6.10); RED CELL DISTRIBUTION WIDTH 13.2 % (11.6-14.8); WHITE BLOOD COUNT 5.7 K/UL (4.8-10.8)
[2018-07-21 07:04] LABS: ALANINE AMINOTRANSFERASE 14 U/L (12-78); ALBUMIN 2.5 G/DL (3.4-5.0); ALBUMIN/GLOBULIN RATIO 0.6 (1.0-2.7); ALKALINE PHOSPHATASE 79 U/L (46-116); ANION GAP 9 mmol/L (5-15); ASPARTATE AMINO TRANSFERASE 10 U/L (15-37); BILIRUBIN,TOTAL 0.2 MG/DL (0.2-1.0); BLOOD UREA NITROGEN 54 mg/dL (7-18); CALCIUM 8.5 MG/DL (8.5-10.1); CARBON DIOXIDE 28 MMOL/L (21-32); CHLORIDE 100 MMOL/L (98-107); CREATININE 5.4 MG/DL (0.55-1.30); PHOSPHORUS 4.3 MG/DL (2.5-4.9); POTASSIUM 4.1 MMOL/L (3.5-5.1); SODIUM 137 MMOL/L (136-145)
[2018-07-21 08:00] VITALS: BP 132/80
[2018-07-21] MEDS: Docusate 100mg cap ORAL SCH ×3 (08:21→18:00)
[2018-07-21] MEDS: Allopurinol 100mg Tab ORAL SCH (08:22)
[2018-07-21] MEDS: Imdur 30mg tab ORAL SCH (08:22)
[2018-07-21] MEDS: Lisinopril 10mg tab ORAL SCH (08:23)
[2018-07-21] MEDS: Carvedilol 25mg Tab ORAL SCH ×2 (08:23→20:42)
[2018-07-21] MEDS: Aspirin Baby 81mg ORAL SCH (08:23)
[2018-07-21] MEDS: Heparin 5000 units/ml inj SUBQ SCH ×2 (08:25→20:45)
--- NOTE | 2018-07-21 08:44 | General Progress Note ---
Assessment/Plan Assessment/Plan (1) Lumbar DDD (2) Lumbar Spondylosis (3) Cocaine Abuse Patient will be continued on [place] as needed. D/w Dr. Rosado and he concurred. Subjective Date patient seen: Jul 21, 2018 Time patient seen: 07:15 - am Allergies: Coded Allergies: No Known Allergies (Unverified , 07/08/18) Subjective REVIEW OF SYSTEMS: Denies rash, fever, chills, sweating, dizziness, drowsiness, blurred vision, or change in weight. No shortness of breath or chest pain. No nausea, vomiting, diarrhea, or blood in the stool or urine. No bowel or bladder incontinence. He is complaining of low back pain. SUBJECTIVE: Patient is in bed reports that the pain is reducing and has been tolerated on the [place]. He has no new complaints. Objective Last 24 Hour Vital Signs Date Time Temp Pulse Resp B/P (MAP) Pulse Ox O2 Delivery O2 Flow Rate FiO2 07/21/18 08:23 106 132/80 07/21/18 08:23 132/80 07/21/18 08:23 106 132/80 07/21/18 08:22 132/80 07/21/18 08:00 96.7 106 18 132/80 (97) 97 07/21/18 07:38 107 16 95 Room Air 21 07/21/18 06:28 142/67 07/21/18 04:05 Nasal Cannula 2.0 28 07/21/18 04:00 96.7 87 18 142/67 (92) 94 07/21/18 04:00 Nasal Cannula 2.0 28 07/21/18 00:00 96.4 104 17 147/84 (105) 94 07/20/18 23:57 92 18 98 Nasal Cannula 2.0 28 07/20/18 23:40 90 18 94 Nasal Cannula 2.0 28 07/20/18 21:58 141/95 07/20/18 21:58 103 141/95 07/20/18 21:00 Nasal Cannula 2.0 07/20/18 20:00 96 Nasal Cannula 2.0 28 07/20/18 20:00 Nasal Cannula 2.0 28 07/20/18 20:00 96.8 103 18 141/95 (110) 94 07/20/18 16:00 97.7 52 20 140/80 (100) 97 07/20/18 14:00 128/70 07/20/18 12:00 98.1 90 20 128/70 (89) 98 07/20/18 09:07 133/79 07/20/18 09:07 133/79 07/20/18 09:06 95 133/79 07/20/18 09:06 95 133/79 07/20/18 09:00 Nasal Cannula 2.0 Intake and Output 07/20/18 07/21/18 18:59 06:59 Intake Total 1550 ml Output Total 6301 ml 1000 ml Balance -4751 ml -1000 ml Intake Oral 1550 ml Output Urine Total 5300 ml 1000 ml Stool Total 1 ml Hemodialysis UF 1000 ml Laboratory Tests 07/21/18 05:36: White Blood Count 5.7, Red Blood Count 2.63L, Hemoglobin 8.3L, Hematocrit 26.2L , Mean Corpuscular Volume 100H, Mean Corpuscular Hemoglobin 31.6H, Mean Corpuscular Hemoglobin Concent 31.7L, Red Cell Distribution Width 13.2, Platelet Count 266, Mean Platelet Volume 7.0, Neutrophils (%) (Auto) 74.4, Lymphocytes (%) (Auto) 4.3L, Monocytes (%) (Auto) 15.0H, Eosinophils (%) (Auto) 4.9H, Basophils (%) (Auto) 1.3, Sodium Level 137, Potassium Level 4.1, Chloride Level 100, Carbon Dioxide Level 28, Anion Gap 9, Blood Urea Nitrogen 54H, Creatinine 5.4H, Estimat Glomerular Filtration Rate 13.3, Glucose Level 133H, Uric Acid 4.1, Calcium Level 8.5, Phosphorus Level 4.3, Total Bilirubin 0.2, Aspartate Amino Transf (AST/SGOT) 10L, Alanine Aminotransferase (ALT/SGPT) 14, Alkaline Phosphatase 79, Pro-B-Type Natriuretic Peptide 9762H, Total Protein 6.5 , Albumin 2.5L, Globulin 4.0, Albumin/Globulin Ratio 0.6L Height (Feet): 5 Height (Inches): 11.00 Weight (Pounds): 222 Objective GENERAL: Alert, awake, and oriented. LUNGS: Decreased breath sounds bilaterally. HEART: S1 and S2 regular. ABDOMEN: Soft, nontender. EXTREMITIES: No CCE NEURO: No changes. James Ramirez Jul 21, 2018 08:44
--- NOTE | 2018-07-21 11:23 | Cardiac Electrophysiology PN ---
Assessment/Plan Assessment/Plan 1. Non-ST elevation myocardial infarction, likely type 2 in the setting of active cocaine use and renal failure. Troponin levels are flat at 0.2, 0.2 and 0.2. Avoid beta-pablo in view of active cocaine use. On aspirin and Lipitor EF 45%. No CP 2. Hypertension. On Norvasc 10 daily, Imdur 60, Lisinopril 10 daily, Clonidine 0.1 tid and HD per Dr Cm Avoid buttermaker beta-blockers for active cocaine use 3. End-stage renal disease, has not been started on hemodialysis. Cr 8.9 Just got his dialysis catheter. HD by Dr. Cm 4. Substance use with cocaine. Avoid beta-blockers. 5. Recent pneumonia. 6. Congestive heart failure. Echocardiogram EF 45% 7. Severe anemia s/p PRBCs . JEANA RN Subjective Subjective No CP or SOB. Had HD yesterday. Objective Last 24 Hour Vital Signs Date Time Temp Pulse Resp B/P (MAP) Pulse Ox O2 Delivery O2 Flow Rate FiO2 07/21/18 09:00 Nasal Cannula 2.0 07/21/18 08:23 106 132/80 07/21/18 08:23 132/80 07/21/18 08:23 106 132/80 07/21/18 08:22 132/80 07/21/18 08:00 96.7 106 18 132/80 (97) 97 07/21/18 07:48 93 16 97 Room Air 21 07/21/18 07:38 107 16 95 Room Air 21 07/21/18 06:28 142/67 07/21/18 04:05 Nasal Cannula 2.0 28 07/21/18 04:00 96.7 87 18 142/67 (92) 94 07/21/18 04:00 Nasal Cannula 2.0 28 07/21/18 00:00 96.4 104 17 147/84 (105) 94 07/20/18 23:57 92 18 98 Nasal Cannula 2.0 28 07/20/18 23:40 90 18 94 Nasal Cannula 2.0 28 07/20/18 21:58 141/95 07/20/18 21:58 103 141/95 07/20/18 21:00 Nasal Cannula 2.0 07/20/18 20:00 96 Nasal Cannula 2.0 28 07/20/18 20:00 Nasal Cannula 2.0 28 07/20/18 20:00 96.8 103 18 141/95 (110) 94 07/20/18 16:00 97.7 52 20 140/80 (100) 97 07/20/18 14:00 128/70 07/20/18 12:00 98.1 90 20 128/70 (89) 98 Intake and Output 07/20/18 07/21/18 18:59 06:59 Intake Total 1550 ml Output Total 6301 ml 1000 ml Balance -4751 ml -1000 ml Intake Oral 1550 ml Output Urine Total 5300 ml 1000 ml Stool Total 1 ml Hemodialysis UF 1000 ml Laboratory Tests Test 07/21/18 05:36 White Blood Count 5.7 K/UL (4.8-10.8) Red Blood Count 2.63 M/UL (4.70-6.10) L Hemoglobin 8.3 G/DL (14.2-18.0) L Hematocrit 26.2 % (42.0-52.0) L Mean Corpuscular Volume 100 FL (80-99) H Mean Corpuscular Hemoglobin 31.6 PG (27.0-31.0) H Mean Corpuscular Hemoglobin Concent 31.7 G/DL (32.0-36.0) L Red Cell Distribution Width 13.2 % (11.6-14.8) Platelet Count 266 K/UL (150-450) Mean Platelet Volume 7.0 FL (6.5-10.1) Neutrophils (%) (Auto) 74.4 % (45.0-75.0) Lymphocytes (%) (Auto) 4.3 % (20.0-45.0) L Monocytes (%) (Auto) 15.0 % (1.0-10.0) H Eosinophils (%) (Auto) 4.9 % (0.0-3.0) H Basophils (%) (Auto) 1.3 % (0.0-2.0) Sodium Level 137 MMOL/L (136-145) Potassium Level 4.1 MMOL/L (3.5-5.1) Chloride Level 100 MMOL/L (98-107) Carbon Dioxide Level 28 MMOL/L (21-32) Anion Gap 9 mmol/L (5-15) Blood Urea Nitrogen 54 mg/dL (7-18) H Creatinine 5.4 MG/DL (0.55-1.30) H Estimat Glomerular Filtration Rate 13.3 mL/min (>60) Glucose Level 133 MG/DL (74-106) H Uric Acid 4.1 MG/DL (2.6-7.2) Calcium Level 8.5 MG/DL (8.5-10.1) Phosphorus Level 4.3 MG/DL (2.5-4.9) Total Bilirubin 0.2 MG/DL (0.2-1.0) Aspartate Amino Transf (AST/SGOT) 10 U/L (15-37) L Alanine Aminotransferase (ALT/SGPT) 14 U/L (12-78) Alkaline Phosphatase 79 U/L (46-116) Pro-B-Type Natriuretic Peptide 9762 pg/mL (0-125) H Total Protein 6.5 G/DL (6.4-8.2) Albumin 2.5 G/DL (3.4-5.0) L Globulin 4.0 g/dL Albumin/Globulin Ratio 0.6 (1.0-2.7) L Objective HEAD AND NECK: No JVD. LUNGS: Decreased breath sounds.Right IJ PermCath in place CARDIOVASCULAR: Regular S1 and S2 with no gallop or murmur. ABDOMEN: Soft. EXTREMITIES: 1 plus pitting edema. German Gray MD Jul 21, 2018 11:23
--- NOTE | 2018-07-21 11:48 | General Progress Note ---
Assessment/Plan Problem List: (1) Cocaine abuse ICD Codes: F14.10 - Cocaine abuse, uncomplicated SNOMED: 75391582 (2) MDD (major depressive disorder) ICD Codes: F32.9 - Major depressive disorder, single episode, unspecified SNOMED: 486788534 (3) Cluster B personality disorder ICD Codes: F60.9 - Personality disorder, unspecified SNOMED: 3447859 Assessment/Plan the pt has capacity to refuse meds the pt may leave ama the pt is reluctant to take psych meds the pt was provided with ro/st/educate about the compliance Subjective Neurologic/Psychiatric: Reports: anxiety, depressed Allergies: Coded Allergies: No Known Allergies (Unverified , 07/08/18) Subjective the pt is more cooperative agreeing to HD and compliant with meds Objective Last 24 Hour Vital Signs Date Time Temp Pulse Resp B/P (MAP) Pulse Ox O2 Delivery O2 Flow Rate FiO2 07/21/18 09:00 Nasal Cannula 2.0 07/21/18 08:23 106 132/80 07/21/18 08:23 132/80 07/21/18 08:23 106 132/80 07/21/18 08:22 132/80 07/21/18 08:00 96.7 106 18 132/80 (97) 97 07/21/18 07:48 93 16 97 Room Air 21 07/21/18 07:38 107 16 95 Room Air 21 07/21/18 06:28 142/67 07/21/18 04:05 Nasal Cannula 2.0 28 07/21/18 04:00 96.7 87 18 142/67 (92) 94 07/21/18 04:00 Nasal Cannula 2.0 28 07/21/18 00:00 96.4 104 17 147/84 (105) 94 07/20/18 23:57 92 18 98 Nasal Cannula 2.0 28 07/20/18 23:40 90 18 94 Nasal Cannula 2.0 28 07/20/18 21:58 141/95 07/20/18 21:58 103 141/95 07/20/18 21:00 Nasal Cannula 2.0 07/20/18 20:00 96 Nasal Cannula 2.0 28 07/20/18 20:00 Nasal Cannula 2.0 28 07/20/18 20:00 96.8 103 18 141/95 (110) 94 07/20/18 16:00 97.7 52 20 140/80 (100) 97 07/20/18 14:00 128/70 07/20/18 12:00 98.1 90 20 128/70 (89) 98 Intake and Output 07/20/18 07/21/18 19:00 07:00 Intake Total 1550 ml Output Total 6301 ml 1000 ml Balance -4751 ml -1000 ml Intake Oral 1550 ml Output Urine Total 5300 ml 1000 ml Stool Total 1 ml Hemodialysis UF 1000 ml Laboratory Tests 07/21/18 05:36: White Blood Count 5.7, Red Blood Count 2.63L, Hemoglobin 8.3L, Hematocrit 26.2L , Mean Corpuscular Volume 100H, Mean Corpuscular Hemoglobin 31.6H, Mean Corpuscular Hemoglobin Concent 31.7L, Red Cell Distribution Width 13.2, Platelet Count 266, Mean Platelet Volume 7.0, Neutrophils (%) (Auto) 74.4, Lymphocytes (%) (Auto) 4.3L, Monocytes (%) (Auto) 15.0H, Eosinophils (%) (Auto) 4.9H, Basophils (%) (Auto) 1.3, Sodium Level 137, Potassium Level 4.1, Chloride Level 100, Carbon Dioxide Level 28, Anion Gap 9, Blood Urea Nitrogen 54H, Creatinine 5.4H, Estimat Glomerular Filtration Rate 13.3, Glucose Level 133H, Uric Acid 4.1, Calcium Level 8.5, Phosphorus Level 4.3, Total Bilirubin 0.2, Aspartate Amino Transf (AST/SGOT) 10L, Alanine Aminotransferase (ALT/SGPT) 14, Alkaline Phosphatase 79, Pro-B-Type Natriuretic Peptide 9762H, Total Protein 6.5 , Albumin 2.5L, Globulin 4.0, Albumin/Globulin Ratio 0.6L Height (Feet): 5 Height (Inches): 11.00 Weight (Pounds): 222 General Appearance: alert Neurologic: oriented x 3, responsive, depressed affect Jakob Trent MD Jul 21, 2018 11:48
[2018-07-21 12:00] VITALS: BP 137/78
--- NOTE | 2018-07-21 13:17 | Nephrology Progress Note ---
Assessment/Plan Problem List: (1) ARF (acute renal failure) (2) Cocaine abuse (3) Acute exacerbation of CHF (congestive heart failure) (4) Hypertensive cardiomegaly with heart failure Assessment Acute on Chronic renal failure Anemia Elevated troponin Hypertensive renal and heart disease Cocaine abuse Cardiomyopathy Plan dialysed 07/18 next HD 07/22 aim to UF 3 liters adjust bp meds transfuse one unit 07/[address] Moura 2D Echo 55% ej fx BRIDGETT kidneys * Mild fullness of the bilateral renal collecting systems without radiographically appreciable stone and observed bilateral ureteral jets. Findings may be related to mild bladder distention. Consider repeat exam after bladder decompression. monitor renal parameters Avoid nephrotoxics renal diet flomax Subjective ROS Limited/Unobtainable: No Constitutional: Reports: malaise Objective Objective Last 24 Hour Vital Signs Date Time Temp Pulse Resp B/P (MAP) Pulse Ox O2 Delivery O2 Flow Rate FiO2 07/21/18 12:01 90 20 Nasal Cannula 2.0 28 07/21/18 12:01 95 Nasal Cannula 2.0 28 07/21/18 12:01 Nasal Cannula 2.0 28 07/21/18 12:00 98.2 70 18 137/78 (97) 97 07/21/18 11:58 90 18 95 Nasal Cannula 2.0 28 07/21/18 09:00 Nasal Cannula 2.0 07/21/18 08:23 106 132/80 07/21/18 08:23 132/80 07/21/18 08:23 106 132/80 07/21/18 08:22 132/80 07/21/18 08:00 96.7 106 18 132/80 (97) 97 07/21/18 07:48 93 16 97 Room Air 21 07/21/18 07:38 107 16 95 Room Air 21 07/21/18 06:28 142/67 07/21/18 04:05 Nasal Cannula 2.0 28 07/21/18 04:00 96.7 87 18 142/67 (92) 94 07/21/18 04:00 Nasal Cannula 2.0 28 07/21/18 00:00 96.4 104 17 147/84 (105) 94 07/20/18 23:57 92 18 98 Nasal Cannula 2.0 28 07/20/18 23:40 90 18 94 Nasal Cannula 2.0 28 07/20/18 21:58 141/95 07/20/18 21:58 103 141/95 07/20/18 21:00 Nasal Cannula 2.0 07/20/18 20:00 96 Nasal Cannula 2.0 28 07/20/18 20:00 Nasal Cannula 2.0 28 07/20/18 20:00 96.8 103 18 141/95 (110) 94 07/20/18 16:00 97.7 52 20 140/80 (100) 97 07/20/18 14:00 128/70 Intake and Output 07/20/18 07/21/18 19:00 07:00 Intake Total 1550 ml Output Total 6301 ml 1000 ml Balance -4751 ml -1000 ml Intake Oral 1550 ml Output Urine Total 5300 ml 1000 ml Stool Total 1 ml Hemodialysis UF 1000 ml Current Medications Medications (Trade) Dose Ordered Sig/Harish Route PRN Reason Start Time Stop Time Status Last Admin Dose Admin Acetaminophen (Tylenol) 650 mg Q4H PRN ORAL Mild Pain/Temp > 100.5 07/17/18 23:15 08/07/18 23:14 07/20/18 09:17 Acetaminophen/ Hydrocodone Bitart ([place] 10/325) 1 tab Q4H PRN ORAL Severe Pain (Pain Scale 7-10) 07/21/18 08:54 07/27/18 08:53 Albuterol/ Ipratropium (Albuterol/ Ipratropium) 3 ml Q4HRT HHN 07/19/18 23:00 07/24/18 22:59 07/21/18 11:57 Allopurinol (Zyloprim) 200 mg DAILY ORAL 07/18/18 09:00 08/11/18 08:59 07/21/18 08:22 Amlodipine Besylate (Norvasc) 10 mg DAILY ORAL 07/19/18 09:00 08/18/18 08:59 07/21/18 08:23 Aspirin (ASA) 81 mg DAILY ORAL 07/18/18 09:00 08/08/18 08:59 07/21/18 08:23 Carvedilol (Coreg) 25 mg EVERY 12 HOURS ORAL 07/20/18 21:00 08/19/18 20:59 07/21/18 08:23 Clonidine HCl (Catapres Tab) 0.1 mg Q8HR ORAL 07/20/18 14:00 08/19/18 13:59 07/21/18 06:28 Cyclobenzaprine HCl (Flexeril) 10 mg TIDPRN PRN ORAL Muscle Spasm 07/18/18 12:15 08/16/18 12:14 07/20/18 17:55 Dextrose (Dextrose 50%) 25 ml Q30M PRN IV Hypoglycemia 07/17/18 21:15 08/07/18 23:14 Dextrose (Dextrose 50%) 50 ml Q30M PRN IV Hypoglycemia 07/17/18 21:15 08/07/18 23:14 Diphenhydramine HCl (Benadryl) 25 mg Q6H PRN ORAL Itching/Pruritis 07/17/18 23:15 08/07/18 23:14 07/18/18 01:40 Docusate Sodium (Colace) 100 mg THREE TIMES A DAY ORAL 07/18/18 09:00 08/08/18 17:59 07/20/18 17:44 Epoetin Juan Pablo (Procrit (for non ESRD use)) 10,000 units FRI-FRI-FRI SUBQ 07/17/18 22:00 08/12/18 21:59 07/20/18 21:58 Gabapentin (Neurontin) 200 mg THREE TIMES A DAY ORAL 07/18/18 18:00 08/17/18 17:59 07/21/18 08:23 Heparin Sodium (Porcine) (Heparin 5000 units/ml) 5,000 units EVERY 12 HOURS SUBQ 07/17/18 22:00 08/14/18 21:59 07/21/18 08:25 Isosorbide Mononitrate (Imdur) 60 mg DAILY ORAL 07/18/18 09:00 08/11/18 08:59 07/21/18 08:22 Lisinopril (Zestril) 10 mg DAILY ORAL 07/20/18 09:00 08/19/18 08:59 07/21/18 08:23 Minoxidil (Loniten) 5 mg Q4H PRN ORAL bp over 165 syst 07/17/18 21:45 08/10/18 13:44 Pantoprazole (Protonix) 40 mg EVERY 12 HOURS ORAL 07/17/18 22:00 08/10/18 21:59 07/21/18 08:23 Sevelamer Carbonate (Renvela) 2,400 mg THREE TIMES A DAY ORAL 07/18/18 09:00 08/08/18 17:59 07/21/18 08:22 Tamsulosin HCl (Flomax) 0.4 mg QHS ORAL 07/18/18 21:00 08/09/18 12:52 07/20/18 21:58 Laboratory Tests 07/21/18 05:36: White Blood Count 5.7, Red Blood Count 2.63L, Hemoglobin 8.3L, Hematocrit 26.2L , Mean Corpuscular Volume 100H, Mean Corpuscular Hemoglobin 31.6H, Mean Corpuscular Hemoglobin Concent 31.7L, Red Cell Distribution Width 13.2, Platelet Count 266, Mean Platelet Volume 7.0, Neutrophils (%) (Auto) 74.4, Lymphocytes (%) (Auto) 4.3L, Monocytes (%) (Auto) 15.0H, Eosinophils (%) (Auto) 4.9H, Basophils (%) (Auto) 1.3, Sodium Level 137, Potassium Level 4.1, Chloride Level 100, Carbon Dioxide Level 28, Anion Gap 9, Blood Urea Nitrogen 54H, Creatinine 5.4H, Estimat Glomerular Filtration Rate 13.3, Glucose Level 133H, Uric Acid 4.1, Calcium Level 8.5, Phosphorus Level 4.3, Total Bilirubin 0.2, Aspartate Amino Transf (AST/SGOT) 10L, Alanine Aminotransferase (ALT/SGPT) 14, Alkaline Phosphatase 79, Pro-B-Type Natriuretic Peptide 9762H, Total Protein 6.5 , Albumin 2.5L, Globulin 4.0, Albumin/Globulin Ratio 0.6L Height (Feet): 5 Height (Inches): 11.00 Weight (Pounds): 222 General Appearance: no apparent distress Cardiovascular: normal rate Respiratory/Chest: lungs clear Abdomen: soft Objective no change Richar Cm MD Jul 21, 2018 13:17
[2018-07-21] MEDS: HYDROcodone/Acetamin 10/325 tab ORAL PRN (14:26)
--- NOTE | 2018-07-21 14:52 | Pulmonology Progress Note ---
Assessment/Plan Problems: (1) Epistaxis (2) Acute exacerbation of CHF (congestive heart failure) (3) Hypertensive cardiomegaly with heart failure (4) ACS (acute coronary syndrome) (5) Cocaine abuse (6) ARF (acute renal failure) (7) DDD (degenerative disc disease) Assessment/Plan ASSESSMENT: The patient is a 58-year-old male with history of cocaine and tobacco abuse, congestive heart failure, and renal impairment, presenting with decompensated heart failure and abnormal renal function with marked uremia. He has previously been told he needs dialysis. He is now being admitted for acute coronary syndrome and likely need for dialysis. PROBLEM LIST: 1. Congestive heart failure with acute decompensated heart failure. 2. Abnormal renal function, likely cardiorenal syndrome. 3. History of cocaine abuse with current positive tox screen. 4. Anemia. 5. Hypertension with hypertensive urgency. 6. Acute coronary syndrome/non-ST elevation myocardial infarction. 7. Acute on chronic LBP with radiculopathy ---> DDD/SS TREATMENT PLAN: -HD per renal, increase UF as able -Control BP -F/U cards and renal recs -Cardiac diet -F/U heme recs -GI eval -DVT Px: hep SQ -Pain control/supportive care -F/U pain management recs -Appreciate psych eval, has capacity, F/U recs -SW assistance in placement Subjective Allergies: Coded Allergies: No Known Allergies (Unverified , 07/08/18) Subjective AFVSS stable O2 needs Edema better Bleeding @ permacath site, resolved No change in chronic back pain, feels muscles are tight No SOB, no CP, no F/C MRI DONE: Impression: Degenerative changes as detailed on a level by level basis above, including moderate spinal stenosis at L4-5 and multilevel neural foraminal stenosis Objective Last 24 Hour Vital Signs Date Time Temp Pulse Resp B/P (MAP) Pulse Ox O2 Delivery O2 Flow Rate FiO2 07/21/18 14:26 137/78 07/21/18 12:01 90 20 Nasal Cannula 2.0 28 07/21/18 12:01 95 Nasal Cannula 2.0 28 07/21/18 12:01 Nasal Cannula 2.0 28 07/21/18 12:00 98.2 70 18 137/78 (97) 97 07/21/18 11:58 90 18 95 Nasal Cannula 2.0 28 07/21/18 09:00 Nasal Cannula 2.0 07/21/18 08:23 106 132/80 07/21/18 08:23 132/80 07/21/18 08:23 106 132/80 07/21/18 08:22 132/80 07/21/18 08:00 96.7 106 18 132/80 (97) 97 07/21/18 07:48 93 16 97 Room Air 21 07/21/18 07:38 107 16 95 Room Air 21 07/21/18 06:28 142/67 07/21/18 04:05 Nasal Cannula 2.0 28 07/21/18 04:00 96.7 87 18 142/67 (92) 94 07/21/18 04:00 Nasal Cannula 2.0 28 07/21/18 00:00 96.4 104 17 147/84 (105) 94 07/20/18 23:57 92 18 98 Nasal Cannula 2.0 28 07/20/18 23:40 90 18 94 Nasal Cannula 2.0 28 07/20/18 21:58 141/95 07/20/18 21:58 103 141/95 07/20/18 21:00 Nasal Cannula 2.0 07/20/18 20:00 96 Nasal Cannula 2.0 28 07/20/18 20:00 Nasal Cannula 2.0 28 07/20/18 20:00 96.8 103 18 141/95 (110) 94 07/20/18 16:00 97.7 52 20 140/80 (100) 97 Intake and Output 07/20/18 07/21/18 19:00 07:00 Intake Total 1550 ml Output Total 6301 ml 1000 ml Balance -4751 ml -1000 ml Intake Oral 1550 ml Output Urine Total 5300 ml 1000 ml Stool Total 1 ml Hemodialysis UF 1000 ml General Appearance: no acute distress, cachetic HEENT: normocephalic, atraumatic, anicteric, mucous membranes moist Respiratory/Chest: chest wall non-tender, lungs clear, normal breath sounds, no respiratory distress, no accessory muscle use Cardiovascular: normal peripheral pulses, normal rate, regular rhythm Abdomen: normal bowel sounds, soft, non tender, no organomegaly, non distended , no mass Extremities: no cyanosis, no clubbing, no edema Laboratory Tests 07/21/18 05:36: White Blood Count 5.7, Red Blood Count 2.63L, Hemoglobin 8.3L, Hematocrit 26.2L , Mean Corpuscular Volume 100H, Mean Corpuscular Hemoglobin 31.6H, Mean Corpuscular Hemoglobin Concent 31.7L, Red Cell Distribution Width 13.2, Platelet Count 266, Mean Platelet Volume 7.0, Neutrophils (%) (Auto) 74.4, Lymphocytes (%) (Auto) 4.3L, Monocytes (%) (Auto) 15.0H, Eosinophils (%) (Auto) 4.9H, Basophils (%) (Auto) 1.3, Sodium Level 137, Potassium Level 4.1, Chloride Level 100, Carbon Dioxide Level 28, Anion Gap 9, Blood Urea Nitrogen 54H, Creatinine 5.4H, Estimat Glomerular Filtration Rate 13.3, Glucose Level 133H, Uric Acid 4.1, Calcium Level 8.5, Phosphorus Level 4.3, Total Bilirubin 0.2, Aspartate Amino Transf (AST/SGOT) 10L, Alanine Aminotransferase (ALT/SGPT) 14, Alkaline Phosphatase 79, Pro-B-Type Natriuretic Peptide 9762H, Total Protein 6.5 , Albumin 2.5L, Globulin 4.0, Albumin/Globulin Ratio 0.6L Current Medications Medications (Trade) Dose Ordered Sig/Harish Route PRN Reason Start Time Stop Time Status Last Admin Dose Admin Acetaminophen (Tylenol) 650 mg Q4H PRN ORAL Mild Pain/Temp > 100.5 07/17/18 23:15 08/07/18 23:14 07/20/18 09:17 Acetaminophen/ Hydrocodone Bitart ([place] 10/325) 1 tab Q4H PRN ORAL Severe Pain (Pain Scale 7-10) 07/21/18 08:54 07/27/18 08:53 07/21/18 14:26 Albuterol/ Ipratropium (Albuterol/ Ipratropium) 3 ml Q4HRT HHN 07/19/18 23:00 07/24/18 22:59 07/21/18 11:57 Allopurinol (Zyloprim) 200 mg DAILY ORAL 07/18/18 09:00 08/11/18 08:59 07/21/18 08:22 Amlodipine Besylate (Norvasc) 10 mg DAILY ORAL 07/19/18 09:00 2/5/19 08:59 07/21/18 08:23 Aspirin (ASA) 81 mg DAILY ORAL 07/18/18 09:00 08/08/18 08:59 07/21/18 08:23 Carvedilol (Coreg) 25 mg EVERY 12 HOURS ORAL 07/20/18 21:00 08/19/18 20:59 07/21/18 08:23 Clonidine HCl (Catapres Tab) 0.1 mg Q8HR ORAL 07/20/18 14:00 08/19/18 13:59 07/21/18 14:26 Cyclobenzaprine HCl (Flexeril) 10 mg TIDPRN PRN ORAL Muscle Spasm 07/18/18 12:15 08/16/18 12:14 07/20/18 17:55 Dextrose (Dextrose 50%) 25 ml Q30M PRN IV Hypoglycemia 07/17/18 21:15 08/07/18 23:14 Dextrose (Dextrose 50%) 50 ml Q30M PRN IV Hypoglycemia 07/17/18 21:15 08/07/18 23:14 Diphenhydramine HCl (Benadryl) 25 mg Q6H PRN ORAL Itching/Pruritis 07/17/18 23:15 08/07/18 23:14 07/18/18 01:40 Docusate Sodium (Colace) 100 mg THREE TIMES A DAY ORAL 07/18/18 09:00 08/08/18 17:59 07/20/18 17:44 Epoetin [place] (Procrit (for non ESRD use)) 10,000 units FRI-FRI-FRI SUBQ 07/17/18 22:00 08/12/18 21:59 07/20/18 21:58 Gabapentin (Neurontin) 200 mg THREE TIMES A DAY ORAL 07/18/18 18:00 08/17/18 17:59 07/21/18 14:26 Heparin Sodium (Porcine) (Heparin 5000 units/ml) 5,000 units EVERY 12 HOURS SUBQ 07/17/18 22:00 08/14/18 21:59 07/21/18 08:25 Isosorbide Mononitrate (Imdur) 60 mg DAILY ORAL 07/18/18 09:00 08/11/18 08:59 07/21/18 08:22 Lisinopril (Zestril) 10 mg DAILY ORAL 07/20/18 09:00 2/6/19 08:59 07/21/18 08:23 Minoxidil (Loniten) 5 mg Q4H PRN ORAL bp over 165 syst 07/17/18 21:45 08/10/18 13:44 Pantoprazole (Protonix) 40 mg EVERY 12 HOURS ORAL 07/17/18 22:00 08/10/18 21:59 07/21/18 08:23 Sevelamer Carbonate (Renvela) 2,400 mg THREE TIMES A DAY ORAL 07/18/18 09:00 08/08/18 17:59 07/21/18 14:26 Tamsulosin HCl (Flomax) 0.4 mg QHS ORAL 07/18/18 21:00 08/09/18 12:52 07/20/18 21:58 Edgard Webb MD Jul 21, 2018 14:52
[2018-07-21 16:00] VITALS: BP 139/78
--- NOTE | 2018-07-21 17:13 | GI Initial Consult Note ---
History of Present Illness General Date patient seen: Jul 21, 2018 Time patient seen: 17:06 Reason for Hospitalization: Dyspnea/Respdistress Referring physician: SILVIA BOBBY Reason for Consultation: Anemia Present Illness HPI The patient is a 58-year-old male with history of cocaine and tobacco abuse, congestive heart failure, and renal impairment, presenting with decompensated heart failure and abnormal renal function with marked uremia. He has previously been told he needs dialysis. He is now being admitted for acute coronary syndrome and likely need for dialysis. GI consulted for anemia. ROS limited, the patient was seen to be very lethargic. Was able to answer questions, however would fall in and out of sleep. The patient complained of constipation, stating that he had a small bowel movement yesterday. The patient denied any history of endoscopic or colonoscopy. It was difficult to obtain any other information from the patient. Labs reviewed; the patient presents today with microcytic anemia, history of iron deficiency, end-stage renal disease. Patient is currently on a renal diet, no reported signs of aspiration. Hepatitis panel is pending. Home Meds Reported Medications Hydralazine Hcl* (HYDRALAZINE HCL*) 50 Mg Tablet, 50 MG ORAL EVERY 8 HOURS, TAB 07/10/18 Furosemide (FUROSEMIDE) 40 Mg/5 Ml Solution, 80 MG ORAL DAILY, ML 07/10/18 Unable to Obtain Medications (UNABLE TO OBTAIN MEDS) 1 Ea Ea 07/08/18 Med list reviewed/reconciled: Yes Allergies: Coded Allergies: No Known Allergies (Unverified , 07/08/18) Patient History Limited by: medical condition History Provided By: Patient, Medical Record Review of Systems All Other Systems: limited Physical Exam Vital Signs Date Time Temp Pulse Resp B/P (MAP) Pulse Ox O2 Delivery O2 Flow Rate FiO2 07/17/18 08:00 98.1 83 20 134/83 (100) 95 07/17/18 09:00 Nasal Cannula 2.0 07/17/18 09:27 28 Sp02 EP Interpretation: reviewed, normal Labs Laboratory Tests Test 07/21/18 05:36 White Blood Count 5.7 K/UL (4.8-10.8) Red Blood Count 2.63 M/UL (4.70-6.10) L Hemoglobin 8.3 G/DL (14.2-18.0) L Hematocrit 26.2 % (42.0-52.0) L Mean Corpuscular Volume 100 FL (80-99) H Mean Corpuscular Hemoglobin 31.6 PG (27.0-31.0) H Mean Corpuscular Hemoglobin Concent 31.7 G/DL (32.0-36.0) L Red Cell Distribution Width 13.2 % (11.6-14.8) Platelet Count 266 K/UL (150-450) Mean Platelet Volume 7.0 FL (6.5-10.1) Neutrophils (%) (Auto) 74.4 % (45.0-75.0) Lymphocytes (%) (Auto) 4.3 % (20.0-45.0) L Monocytes (%) (Auto) 15.0 % (1.0-10.0) H Eosinophils (%) (Auto) 4.9 % (0.0-3.0) H Basophils (%) (Auto) 1.3 % (0.0-2.0) Sodium Level 137 MMOL/L (136-145) Potassium Level 4.1 MMOL/L (3.5-5.1) Chloride Level 100 MMOL/L (98-107) Carbon Dioxide Level 28 MMOL/L (21-32) Anion Gap 9 mmol/L (5-15) Blood Urea Nitrogen 54 mg/dL (7-18) H Creatinine 5.4 MG/DL (0.55-1.30) H Estimat Glomerular Filtration Rate 13.3 mL/min (>60) Glucose Level 133 MG/DL (74-106) H Uric Acid 4.1 MG/DL (2.6-7.2) Calcium Level 8.5 MG/DL (8.5-10.1) Phosphorus Level 4.3 MG/DL (2.5-4.9) Total Bilirubin 0.2 MG/DL (0.2-1.0) Aspartate Amino Transf (AST/SGOT) 10 U/L (15-37) L Alanine Aminotransferase (ALT/SGPT) 14 U/L (12-78) Alkaline Phosphatase 79 U/L (46-116) Pro-B-Type Natriuretic Peptide 9762 pg/mL (0-125) H Total Protein 6.5 G/DL (6.4-8.2) Albumin 2.5 G/DL (3.4-5.0) L Globulin 4.0 g/dL Albumin/Globulin Ratio 0.6 (1.0-2.7) L General Appearance: well appearing, no apparent distress, alert Head: normocephalic EENT: PERRL/EOMI, normal ENT inspection Neck: supple Respiratory: normal breath sounds, no respiratory distress Cardiovascular: normal rate Gastrointestinal: normal inspection, non tender, soft, normal bowel sounds, non -distended Rectal: deferred Genitourinary: deferred Musculoskeletal: normal inspection, back normal Neurologic: alert, responsive Skin: normal inspection, normal color, no rash, warm/dry, palpation normal, well hydrated Lymphatic: normal inspection, no adenopathy Current Medications Current Medications Medications (Trade) Dose Ordered Sig/Harish Route PRN Reason Start Time Stop Time Status Last Admin Dose Admin Acetaminophen (Tylenol) 650 mg Q4H PRN ORAL Mild Pain/Temp > 100.5 07/17/18 23:15 08/07/18 23:14 07/20/18 09:17 Acetaminophen/ Hydrocodone Bitart ([place] 10/325) 1 tab Q4H PRN ORAL Severe Pain (Pain Scale 7-10) 07/21/18 08:54 07/27/18 08:53 07/21/18 14:26 Albuterol/ Ipratropium (Albuterol/ Ipratropium) 3 ml Q4HRT HHN 07/19/18 23:00 07/24/18 22:59 07/21/18 15:00 Allopurinol (Zyloprim) 200 mg DAILY ORAL 07/18/18 09:00 08/11/18 08:59 07/21/18 08:22 Amlodipine Besylate (Norvasc) 10 mg DAILY ORAL 07/19/18 09:00 08/18/18 08:59 07/21/18 08:23 Aspirin (ASA) 81 mg DAILY ORAL 07/18/18 09:00 08/08/18 08:59 07/21/18 08:23 Carvedilol (Coreg) 25 mg EVERY 12 HOURS ORAL 07/20/18 21:00 08/19/18 20:59 07/21/18 08:23 Clonidine HCl (Catapres Tab) 0.1 mg Q8HR ORAL 07/20/18 14:00 08/19/18 13:59 07/21/18 14:26 Cyclobenzaprine HCl (Flexeril) 10 mg TIDPRN PRN ORAL Muscle Spasm 07/18/18 12:15 08/16/18 12:14 07/20/18 17:55 Dextrose (Dextrose 50%) 25 ml Q30M PRN IV Hypoglycemia 07/17/18 21:15 08/07/18 23:14 Dextrose (Dextrose 50%) 50 ml Q30M PRN IV Hypoglycemia 07/17/18 21:15 08/07/18 23:14 Diphenhydramine HCl (Benadryl) 25 mg Q6H PRN ORAL Itching/Pruritis 07/17/18 23:15 08/07/18 23:14 07/18/18 01:40 Docusate Sodium (Colace) 100 mg THREE TIMES A DAY ORAL 07/18/18 09:00 08/08/18 17:59 07/20/18 17:44 Epoetin Juan Pablo (Procrit (for non ESRD use)) 10,000 units FRI-FRI-FRI SUBQ 07/17/18 22:00 08/12/18 21:59 07/20/18 21:58 Gabapentin (Neurontin) 200 mg THREE TIMES A DAY ORAL 07/18/18 18:00 08/17/18 17:59 07/21/18 14:26 Heparin Sodium (Porcine) (Heparin 5000 units/ml) 5,000 units EVERY 12 HOURS SUBQ 07/17/18 22:00 08/14/18 21:59 07/21/18 08:25 Isosorbide Mononitrate (Imdur) 60 mg DAILY ORAL 07/18/18 09:00 08/11/18 08:59 07/21/18 08:22 Lisinopril (Zestril) 10 mg DAILY ORAL 07/20/18 09:00 08/19/18 08:59 07/21/18 08:23 Minoxidil (Loniten) 5 mg Q4H PRN ORAL bp over 165 syst 07/17/18 21:45 08/10/18 13:44 Pantoprazole (Protonix) 40 mg EVERY 12 HOURS ORAL 07/17/18 22:00 08/10/18 21:59 07/21/18 08:23 Sevelamer Carbonate (Renvela) 2,400 mg THREE TIMES A DAY ORAL 07/18/18 09:00 08/08/18 17:59 07/21/18 14:26 Tamsulosin HCl (Flomax) 0.4 mg QHS ORAL 07/18/18 21:00 08/09/18 12:52 07/20/18 21:58 GI: Plan Problems: (1) Iron deficiency (2) Macrocytic anemia (3) Constipation (4) Cocaine abuse (5) Pancreatitis Plan Patient will require cardiac clearance prior to any GI procedures anemia work up OB stool r/o GI bleed monitor H&H, prn transfusions bowel regime ppi venofer renal diet fu labs, lipase levels, hepatitis panel Discussed with Dr. Shea. Thank you for this patient referral, we will follow. The patient was seen and examined at bedside and all new and available data was reviewed in the patients chart. I agree with the above findings, impression and plan. (Patient seen earlier today. Signature stamp does not reflect patient encounter time.). - MD Collette Nelson AnhJose KENNEDY Jul 21, 2018 17:13
--- NOTE | 2018-07-21 17:35 | General Progress Note ---
Assessment/Plan Assessment/Plan # Anemia of chronic disease, multifactorial, grace on ckd --> Anemia w/u has been reviewed --> No evidence of hemolysis is noted, peripheral smear has been reviewed. --> Hgb goal >7. Transfuse prn. --> continue on epo sq # Congestive heart failure with acute decompensated heart failure. --> per cards management --> In tele unit --> on diuresis # Abnormal renal function, likely cardiorenal syndrome. --> Nephrology is following appreciate recs --> BRIDGETT kidneys with minimal fullness, seen by renal, echogenicity is wnl # History of cocaine abuse with current positive tox screen. --> recommend cessation # Hypertension with hypertensive urgency. --> On Norvasc 5 mg bid, Hydralazine,Imdur and Clonidine patch. Avoid beta-blockers for active cocaine use Off ARMAND inhibitor and angiotensin-receptor pablo. # Acute coronary syndrome/non-ST elevation myocardial infarction. GREATLY APPRECIATE CONSULTATION. Date and time note entered does not reflect time and date patient was seen. Subjective Constitutional: Denies: no symptoms, chills, diaphoresis, fever, malaise, weakness, other HEENT: Denies: no symptoms, eye pain, blurred vision, tearing, double vision, ear pain, ear discharge, nose pain, nose congestion, throat pain, throat swelling, mouth pain, mouth swelling, other Cardiovascular: Denies: no symptoms, chest pain, edema, irregular heart rate, lightheadedness, palpitations, syncope, other Respiratory: Denies: no symptoms, cough, orthopnea, shortness of breath, SOB with excertion, SOB at rest, sputum, stridor, wheezing, other Gastrointestinal/Abdominal: Denies: no symptoms, abdomen distended, abdominal pain, black stools, tarry stools, blood in stool, constipated, diarrhea, difficulty swallowing, nausea, poor appetite, poor fluid intake, rectal bleeding , vomiting, other Genitourinary: Denies: no symptoms, burning, discharge, frequency, flank pain, hematuria, incontinence, pain, urgency, other Neurologic/Psychiatric: Denies: no symptoms, anxiety, depressed, emotional problems, headache, numbness, paresthesia, pre-existing deficit, seizure, tingling, tremors, weakness, other Hematologic/Lymphatic: Denies: no symptoms, anemia, easy bleeding, easy bruising, other Allergies: Coded Allergies: No Known Allergies (Unverified , 07/08/18) Subjective 07/12: no events, cr trending, h/h stable, on epo 07/14: transfuse one unit 07/13, diruresed, refused mendez, seen by cards, bp better 07/15 : Pt is seen in the room, awake and alert, S/P blood transfusion, refusing HD 07/16 : Pt is awake and resting in bed. waiting on sister to make HD decision, no events 07/17 Pt is seen in the room,awake and alert, appears to be agreeable for placement of dialysis cath and dialysis . 07/18: Pt is seen in the room, No CP or SOB. Had HD today. 07/19: Pt is awake and resting in bed. Denies pain, SOB or fevers and chills. Has HD scheduled for 07/20/18, currently stable. 07/20: received hand held nebulizer, no other events, no f.c 07/21 : Pt seen by bedside, continues on breathing treatment, HD 07/22/18, no events Objective Last 24 Hour Vital Signs Date Time Temp Pulse Resp B/P (MAP) Pulse Ox O2 Delivery O2 Flow Rate FiO2 07/21/18 16:00 98.7 100 18 139/78 (98) 97 07/21/18 15:08 Nasal Cannula 2.0 28 07/21/18 15:05 105 16 93 Nasal Cannula 2.0 28 07/21/18 14:26 137/78 07/21/18 12:09 92 18 95 Nasal Cannula 2.0 28 07/21/18 12:01 90 20 Nasal Cannula 2.0 28 07/21/18 12:01 95 Nasal Cannula 2.0 28 07/21/18 12:01 Nasal Cannula 2.0 28 07/21/18 12:00 98.2 70 18 137/78 (97) 97 07/21/18 11:58 90 18 95 Nasal Cannula 2.0 28 07/21/18 09:00 Nasal Cannula 2.0 07/21/18 08:23 106 132/80 07/21/18 08:23 132/80 07/21/18 08:23 106 132/80 07/21/18 08:22 132/80 07/21/18 08:00 96.7 106 18 132/80 (97) 97 07/21/18 07:48 93 16 97 Room Air 21 07/21/18 07:38 107 16 95 Room Air 21 07/21/18 06:28 142/67 07/21/18 04:05 Nasal Cannula 2.0 28 07/21/18 04:00 96.7 87 18 142/67 (92) 94 07/21/18 04:00 Nasal Cannula 2.0 28 07/21/18 00:00 96.4 104 17 147/84 (105) 94 07/20/18 23:57 92 18 98 Nasal Cannula 2.0 28 07/20/18 23:40 90 18 94 Nasal Cannula 2.0 28 07/20/18 21:58 141/95 07/20/18 21:58 103 141/95 07/20/18 21:00 Nasal Cannula 2.0 07/20/18 20:00 96 Nasal Cannula 2.0 28 07/20/18 20:00 Nasal Cannula 2.0 28 07/20/18 20:00 96.8 103 18 141/95 (110) 94 Intake and Output 07/20/18 07/21/18 19:00 07:00 Intake Total 1550 ml Output Total 6301 ml 1000 ml Balance -4751 ml -1000 ml Intake Oral 1550 ml Output Urine Total 5300 ml 1000 ml Stool Total 1 ml Hemodialysis UF 1000 ml Laboratory Tests 07/21/18 05:36: White Blood Count 5.7, Red Blood Count 2.63L, Hemoglobin 8.3L, Hematocrit 26.2L , Mean Corpuscular Volume 100H, Mean Corpuscular Hemoglobin 31.6H, Mean Corpuscular Hemoglobin Concent 31.7L, Red Cell Distribution Width 13.2, Platelet Count 266, Mean Platelet Volume 7.0, Neutrophils (%) (Auto) 74.4, Lymphocytes (%) (Auto) 4.3L, Monocytes (%) (Auto) 15.0H, Eosinophils (%) (Auto) 4.9H, Basophils (%) (Auto) 1.3, Sodium Level 137, Potassium Level 4.1, Chloride Level 100, Carbon Dioxide Level 28, Anion Gap 9, Blood Urea Nitrogen 54H, Creatinine 5.4H, Estimat Glomerular Filtration Rate 13.3, Glucose Level 133H, Uric Acid 4.1, Calcium Level 8.5, Phosphorus Level 4.3, Total Bilirubin 0.2, Aspartate Amino Transf (AST/SGOT) 10L, Alanine Aminotransferase (ALT/SGPT) 14, Alkaline Phosphatase 79, Pro-B-Type Natriuretic Peptide 9762H, Total Protein 6.5 , Albumin 2.5L, Globulin 4.0, Albumin/Globulin Ratio 0.6L Height (Feet): 5 Height (Inches): 11.00 Weight (Pounds): 222 Objective Physical Exam General Appearance: A+O x2 NAD HEENT: normocephalic, atraumatic Neck: non-tender, normal alignment Respiratory/Chest: chest wall non-tender, lungs clear Cardiovascular/Chest: normal peripheral pulses, normal rate Abdomen: normal bowel sounds, non tender Extremities: normal range of motion Shane Mary MD Jul 21, 2018 17:35
[2018-07-21 20:00] VITALS: BP 140/88
[2018-07-21] MEDS: Miralax 17gm pkt ORAL SCH (20:43)
[2018-07-21] MEDS: Tamsulosin 0.4mg cap ORAL SCH (22:02)
[2018-07-22] VITALS (8 sets, daily range): BP systolic 114–167; BP diastolic 61–113
[2018-07-22] MEDS: Albuterol/Ipratropium 3ml neb HHN SCH ×6 (02:46→23:28)
[2018-07-22] MEDS: Aspirin Baby 81mg ORAL SCH (08:48)
--- NOTE | 2018-07-22 08:48 | General Progress Note ---
Assessment/Plan Assessment/Plan (1) Lumbar DDD (2) Lumbar Spondylosis (3) Cocaine Abuse Patient will be continued on [place] as needed. D/w Dr. Rosado and he concurred. Subjective Date patient seen: Jul 22, 2018 Time patient seen: 07:15 - am Allergies: Coded Allergies: No Known Allergies (Unverified , 07/08/18) Subjective REVIEW OF SYSTEMS: Denies rash, fever, chills, sweating, dizziness, drowsiness, blurred vision, or change in weight. No shortness of breath or chest pain. No nausea, vomiting, diarrhea, or blood in the stool or urine. No bowel or bladder incontinence. He is complaining of low back pain. SUBJECTIVE: Patient is in bed he has continued pain which has been tolerated on the Stedman. Objective Last 24 Hour Vital Signs Date Time Temp Pulse Resp B/P (MAP) Pulse Ox O2 Delivery O2 Flow Rate FiO2 07/22/18 08:00 110 22 95 Nasal Cannula 2.0 28 07/22/18 07:50 Room Air 07/22/18 07:50 115 18 90 Room Air 21 07/22/18 07:50 90 Room Air 21 07/22/18 06:00 98.7 110 19 140/93 (109) 91 07/22/18 05:55 165/97 07/22/18 04:00 98.7 114 19 165/97 (119) 96 07/22/18 02:56 116 20 96 Nasal Cannula 2.0 28 07/22/18 02:46 115 18 94 Nasal Cannula 2.0 28 07/22/18 00:00 99.1 110 19 164/106 (125) 97 07/21/18 23:21 113 18 96 Nasal Cannula 2.0 28 07/21/18 23:11 111 20 94 Nasal Cannula 2.0 28 07/21/18 22:03 139/78 07/21/18 21:00 Nasal Cannula 2.0 07/21/18 20:42 106 139/78 07/21/18 20:00 98.5 105 19 140/88 (105) 98 07/21/18 19:59 104 18 95 Nasal Cannula 2.0 28 07/21/18 19:59 Nasal Cannula 2.0 28 07/21/18 19:59 95 Nasal Cannula 2.0 28 07/21/18 19:59 106 20 97 Nasal Cannula 2.0 28 07/21/18 16:00 98.7 100 18 139/78 (98) 97 07/21/18 15:08 Nasal Cannula 2.0 28 07/21/18 15:05 105 16 93 Nasal Cannula 2.0 28 07/21/18 14:26 137/78 07/21/18 12:09 92 18 95 Nasal Cannula 2.0 28 07/21/18 12:01 90 20 Nasal Cannula 2.0 28 07/21/18 12:01 95 Nasal Cannula 2.0 28 07/21/18 12:01 Nasal Cannula 2.0 28 07/21/18 12:00 98.2 70 18 137/78 (97) 97 07/21/18 11:58 90 18 95 Nasal Cannula 2.0 28 07/21/18 09:00 Nasal Cannula 2.0 Intake and Output 07/21/18 07/22/18 18:59 06:59 Intake Total 1200 ml 400 ml Output Total 1100 ml Balance 1200 ml -700 ml Intake Oral 1200 ml 400 ml Output Urine Total 1100 ml Height (Feet): 5 Height (Inches): 11.00 Weight (Pounds): 188 Objective GENERAL: Alert, awake, and oriented. LUNGS: Decreased breath sounds bilaterally. HEART: S1 and S2 regular. ABDOMEN: Soft, nontender. EXTREMITIES: No CCE NEURO: No changes. James Ramirez Jul 22, 2018 08:48
[2018-07-22] MEDS: Allopurinol 100mg Tab ORAL SCH (08:49)
[2018-07-22] MEDS: Carvedilol 25mg Tab ORAL SCH ×2 (08:49→21:00)
[2018-07-22] MEDS: Lisinopril 10mg tab ORAL SCH (08:50)
[2018-07-22] MEDS: Docusate 100mg cap ORAL SCH ×3 (08:51→18:20)
[2018-07-22] MEDS: Imdur 30mg tab ORAL SCH (08:51)
[2018-07-22] MEDS: HYDROcodone/Acetamin 10/325 tab ORAL PRN ×2 (08:52→18:26)
[2018-07-22] MEDS: Heparin 5000 units/ml inj SUBQ SCH ×2 (08:54→21:00)
[2018-07-22 09:00] LABS: BASOPHILS % (AUTO) 2.6 % (0.0-2.0); EOSINOPHILS % (AUTO) 8.3 % (0.0-3.0); HEMATOCRIT 27.5 % (42.0-52.0); HEMOGLOBIN 8.5 G/DL (14.2-18.0); LYMPHOCYTES % (AUTO) 8.6 % (20.0-45.0); MEAN CORPUSCULAR VOLUME 101 FL (80-99); MONOCYTES % (AUTO) 13.3 % (1.0-10.0); NEUTROPHILS % (AUTO) 67.2 % (45.0-75.0); PLATELET COUNT 263 K/UL (150-450); RED BLOOD COUNT 2.73 M/UL (4.70-6.10); RED CELL DISTRIBUTION WIDTH 13.7 % (11.6-14.8); WHITE BLOOD COUNT 6.6 K/UL (4.8-10.8)
[2018-07-22 09:25] LABS: ANION GAP 9 mmol/L (5-15); BLOOD UREA NITROGEN 57 mg/dL (7-18); CALCIUM 8.7 MG/DL (8.5-10.1); CARBON DIOXIDE 28 MMOL/L (21-32); CHLORIDE 98 MMOL/L (98-107); CREATININE 6.4 MG/DL (0.55-1.30); PHOSPHORUS 3.4 MG/DL (2.5-4.9); POTASSIUM 4.5 MMOL/L (3.5-5.1); SODIUM 135 MMOL/L (136-145)
--- NOTE | 2018-07-22 11:30 | GI Progress Note ---
Assessment/Plan Problems: (1) Macrocytic anemia ICD Codes: D53.9 - Nutritional anemia, unspecified SNOMED: 01696320 (2) Iron deficiency ICD Codes: E61.1 - Iron deficiency SNOMED: 60438894 (3) Constipation ICD Codes: K59.00 - Constipation, unspecified SNOMED: 08465242 (4) Cocaine abuse ICD Codes: F14.10 - Cocaine abuse, uncomplicated SNOMED: 41853530 (5) Pancreatitis ICD Codes: K85.90 - Acute pancreatitis without necrosis or infection, unspecified SNOMED: 39589862 Status: stable Status Narrative Discussed with Dr. Shea Assessment/Plan Pancreatitis now resolved Hepatitis panel still pending Patient will require cardiac clearance prior to any GI procedures OB stool r/o GI bleed monitor H&H, prn transfusions bowel regime ppi venofer renal diet fu labs Outpatient GI procedures The patient was seen and examined at bedside and all new and available data was reviewed in the patients chart. I agree with the above findings, impression and plan. (Patient seen earlier today. Signature stamp does not reflect patient encounter time.). - Nikolas Shea MD Subjective Gastrointestinal/Abdominal: Reports: no symptoms Subjective Stated he had a bowel movement yesterday Objective Last 24 Hour Vital Signs Date Time Temp Pulse Resp B/P (MAP) Pulse Ox O2 Delivery O2 Flow Rate FiO2 07/22/18 09:30 98.2 108 20 114/61 (78) 92 07/22/18 09:00 Nasal Cannula 2.0 07/22/18 08:51 167/113 07/22/18 08:50 167/113 07/22/18 08:49 116 167/113 07/22/18 08:49 116 167/113 07/22/18 08:00 100.3 116 23 167/113 (131) 93 07/22/18 08:00 110 22 95 Nasal Cannula 2.0 28 07/22/18 07:50 Room Air 21 07/22/18 07:50 115 18 90 Room Air 21 07/22/18 07:50 90 Room Air 21 07/22/18 06:00 98.7 110 19 140/93 (109) 91 07/22/18 05:55 165/97 07/22/18 04:00 98.7 114 19 165/97 (119) 96 07/22/18 02:56 116 20 96 Nasal Cannula 2.0 28 07/22/18 02:46 115 18 94 Nasal Cannula 2.0 28 07/22/18 00:00 99.1 110 19 164/106 (125) 97 07/21/18 23:21 113 18 96 Nasal Cannula 2.0 28 07/21/18 23:11 111 20 94 Nasal Cannula 2.0 28 07/21/18 22:03 139/78 07/21/18 21:00 Nasal Cannula 2.0 07/21/18 20:42 106 139/78 07/21/18 20:00 98.5 105 19 140/88 (105) 98 07/21/18 19:59 104 18 95 Nasal Cannula 2.0 28 07/21/18 19:59 Nasal Cannula 2.0 28 07/21/18 19:59 95 Nasal Cannula 2.0 28 07/21/18 19:59 106 20 97 Nasal Cannula 2.0 28 07/21/18 16:00 98.7 100 18 139/78 (98) 97 07/21/18 15:08 Nasal Cannula 2.0 28 07/21/18 15:05 105 16 93 Nasal Cannula 2.0 28 07/21/18 14:26 137/78 07/21/18 12:09 92 18 95 Nasal Cannula 2.0 28 07/21/18 12:01 90 20 Nasal Cannula 2.0 28 07/21/18 12:01 95 Nasal Cannula 2.0 28 07/21/18 12:01 Nasal Cannula 2.0 28 07/21/18 12:00 98.2 70 18 137/78 (97) 97 07/21/18 11:58 90 18 95 Nasal Cannula 2.0 28 Intake and Output 07/21/18 07/22/18 18:59 06:59 Intake Total 1200 ml 400 ml Output Total 1100 ml Balance 1200 ml -700 ml Intake Oral 1200 ml 400 ml Output Urine Total 1100 ml Laboratory Tests Test 07/22/18 08:25 White Blood Count 6.6 K/UL (4.8-10.8) Red Blood Count 2.73 M/UL (4.70-6.10) L Hemoglobin 8.5 G/DL (14.2-18.0) L Hematocrit 27.5 % (42.0-52.0) L Mean Corpuscular Volume 101 FL (80-99) H Mean Corpuscular Hemoglobin 31.0 PG (27.0-31.0) Mean Corpuscular Hemoglobin Concent 30.7 G/DL (32.0-36.0) L Red Cell Distribution Width 13.7 % (11.6-14.8) Platelet Count 263 K/UL (150-450) Mean Platelet Volume 6.7 FL (6.5-10.1) Neutrophils (%) (Auto) 67.2 % (45.0-75.0) Lymphocytes (%) (Auto) 8.6 % (20.0-45.0) L Monocytes (%) (Auto) 13.3 % (1.0-10.0) H Eosinophils (%) (Auto) 8.3 % (0.0-3.0) H Basophils (%) (Auto) 2.6 % (0.0-2.0) H Sodium Level 135 MMOL/L (136-145) L Potassium Level 4.5 MMOL/L (3.5-5.1) Chloride Level 98 MMOL/L (98-107) Carbon Dioxide Level 28 MMOL/L (21-32) Anion Gap 9 mmol/L (5-15) Blood Urea Nitrogen 57 mg/dL (7-18) H Creatinine 6.4 MG/DL (0.55-1.30) H Estimat Glomerular Filtration Rate 10.9 mL/min (>60) Glucose Level 137 MG/DL (74-106) H Calcium Level 8.7 MG/DL (8.5-10.1) Phosphorus Level 3.4 MG/DL (2.5-4.9) Magnesium Level 1.7 MG/DL (1.8-2.4) L Lipase 124 U/L (73-393) Height (Feet): 5 Height (Inches): 11.00 Weight (Pounds): 188 General Appearance: WD/WN, no apparent distress, alert Cardiovascular: normal rate Respiratory/Chest: normal breath sounds, no respiratory distress Abdominal Exam: normal bowel sounds, non tender, soft Extremities: normal range of motion, non-tender Daja Murdock NP Jul 22, 2018 11:30
--- NOTE | 2018-07-22 12:59 | Diagnostic Imaging Report ---
APPROVED REPORT CPT Code: 34939 Present Symptoms Comments: Swelling LEFT UPPER EXTREMY: Venous imaging reveals patency of the internal jugular, subclavian, axillary and brachial veins. The cephalic and basilic veins are also patent. Doppler indicates normal spontaneous flow within these venous segments.
--- NOTE | 2018-07-22 15:31 | Nephrology Progress Note ---
Assessment/Plan Problem List: (1) ARF (acute renal failure) (2) Cocaine abuse (3) Acute exacerbation of CHF (congestive heart failure) (4) Hypertensive cardiomegaly with heart failure Assessment Acute on Chronic renal failure Anemia Elevated troponin Hypertensive renal and heart disease Cocaine abuse Cardiomyopathy Plan next HD 07/22 aim to UF 3 liters adjust bp meds Dc planning transfuse one unit 07/[address] Moura 2D Echo 55% ej fx BRIDGETT kidneys * Mild fullness of the bilateral renal collecting systems without radiographically appreciable stone and observed bilateral ureteral jets. Findings may be related to mild bladder distention. Consider repeat exam after bladder decompression. monitor renal parameters Avoid nephrotoxics renal diet flomax Subjective ROS Limited/Unobtainable: No Constitutional: Reports: malaise Objective Objective Last 24 Hour Vital Signs Date Time Temp Pulse Resp B/P (MAP) Pulse Ox O2 Delivery O2 Flow Rate FiO2 07/22/18 13:46 115/65 07/22/18 12:00 97.9 108 20 115/65 (82) 95 07/22/18 11:40 109 21 97 Nasal Cannula 2.0 28 07/22/18 11:27 112 22 91 Room Air 21 07/22/18 09:30 98.2 108 20 114/61 (78) 92 07/22/18 09:00 Nasal Cannula 2.0 07/22/18 08:51 167/113 07/22/18 08:50 167/113 07/22/18 08:49 116 167/113 07/22/18 08:49 116 167/113 07/22/18 08:00 100.3 116 23 167/113 (131) 93 07/22/18 08:00 110 22 95 Nasal Cannula 2.0 28 07/22/18 07:50 Room Air 21 07/22/18 07:50 115 18 90 Room Air 21 07/22/18 07:50 90 Room Air 21 07/22/18 06:00 98.7 110 19 140/93 (109) 91 07/22/18 05:55 165/97 07/22/18 04:00 98.7 114 19 165/97 (119) 96 07/22/18 02:56 116 20 96 Nasal Cannula 2.0 28 07/22/18 02:46 115 18 94 Nasal Cannula 2.0 28 07/22/18 00:00 99.1 110 19 164/106 (125) 97 07/21/18 23:21 113 18 96 Nasal Cannula 2.0 28 07/21/18 23:11 111 20 94 Nasal Cannula 2.0 28 07/21/18 22:03 139/78 07/21/18 21:00 Nasal Cannula 2.0 07/21/18 20:42 106 139/78 07/21/18 20:00 98.5 105 19 140/88 (105) 98 07/21/18 19:59 104 18 95 Nasal Cannula 2.0 28 07/21/18 19:59 Nasal Cannula 2.0 28 07/21/18 19:59 95 Nasal Cannula 2.0 28 07/21/18 19:59 106 20 97 Nasal Cannula 2.0 28 07/21/18 16:00 98.7 100 18 139/78 (98) 97 Intake and Output 07/21/18 07/22/18 19:00 07:00 Intake Total 1200 ml 400 ml Output Total 1100 ml Balance 1200 ml -700 ml Intake Oral 1200 ml 400 ml Output Urine Total 1100 ml Laboratory Tests 07/22/18 08:25: White Blood Count 6.6, Red Blood Count 2.73L, Hemoglobin 8.5L, Hematocrit 27.5L , Mean Corpuscular Volume 101H, Mean Corpuscular Hemoglobin 31.0, Mean Corpuscular Hemoglobin Concent 30.7L, Red Cell Distribution Width 13.7, Platelet Count 263, Mean Platelet Volume 6.7, Neutrophils (%) (Auto) 67.2, Lymphocytes (%) (Auto) 8.6L, Monocytes (%) (Auto) 13.3H, Eosinophils (%) (Auto) 8.3H, Basophils (%) (Auto) 2.6H, Sodium Level 135L, Potassium Level 4.5, Chloride Level 98, Carbon Dioxide Level 28, Anion Gap 9, Blood Urea Nitrogen 57H , Creatinine 6.4H, Estimat Glomerular Filtration Rate 10.9, Glucose Level 137H, Calcium Level 8.7, Phosphorus Level 3.4, Magnesium Level 1.7L, Lipase 124 Height (Feet): 5 Height (Inches): 11.00 Weight (Pounds): 188 General Appearance: no apparent distress Extremities: other - 3+ edema Objective no change Richar Cm MD Jul 22, 2018 15:31
--- NOTE | 2018-07-22 17:31 | Cardiac Electrophysiology PN ---
Assessment/Plan Assessment/Plan 1. Troponin leak in the setting of active cocaine use and renal failure. Troponin levels are flat at 0.2, 0.2 and 0.2. Avoid beta-pablo in view of active cocaine use. On aspirin and Lipitor EF 45%. No CP 2. Hypertension. On Norvasc 10 daily, Imdur 60, Lisinopril 10 daily, Clonidine 0.1 tid and HD per Dr Cm Avoid [facility] beta-blockers for active cocaine use 3. End-stage renal disease, has not been started on hemodialysis. Cr 8.[address] Cm 4. Substance use with cocaine. Avoid beta-blockers. 5. Recent pneumonia. 6. Congestive heart failure. Echocardiogram EF 45% 7. Severe anemia s/p PRBCs . DW RN Subjective Subjective No CP or SOB. Had HD Objective Last 24 Hour Vital Signs Date Time Temp Pulse Resp B/P (MAP) Pulse Ox O2 Delivery O2 Flow Rate FiO2 07/22/18 15:45 99 20 100 Nasal Cannula 2.0 28 07/22/18 15:33 98 20 96 Nasal Cannula 2.0 28 07/22/18 13:46 115/65 07/22/18 12:00 97.9 108 20 115/65 (82) 95 07/22/18 11:40 109 21 97 Nasal Cannula 2.0 28 07/22/18 11:27 112 22 91 Room Air 21 07/22/18 09:30 98.2 108 20 114/61 (78) 92 07/22/18 09:00 Nasal Cannula 2.0 07/22/18 08:51 167/113 07/22/18 08:50 167/113 07/22/18 08:49 116 167/113 07/22/18 08:49 116 167/113 07/22/18 08:00 100.3 116 23 167/113 (131) 93 07/22/18 08:00 110 22 95 Nasal Cannula 2.0 28 07/22/18 07:50 Room Air 21 07/22/18 07:50 115 18 90 Room Air 21 07/22/18 07:50 90 Room Air 21 07/22/18 06:00 98.7 110 19 140/93 (109) 91 07/22/18 05:55 165/97 07/22/18 04:00 98.7 114 19 165/97 (119) 96 1/9/19 02:56 116 20 96 Nasal Cannula 2.0 28 07/22/18 02:46 115 18 94 Nasal Cannula 2.0 28 07/22/18 00:00 99.1 110 19 164/106 (125) 97 07/21/18 23:21 113 18 96 Nasal Cannula 2.0 28 07/21/18 23:11 111 20 94 Nasal Cannula 2.0 28 07/21/18 22:03 139/78 07/21/18 21:00 Nasal Cannula 2.0 07/21/18 20:42 106 139/78 07/21/18 20:00 98.5 105 19 140/88 (105) 98 07/21/18 19:59 104 18 95 Nasal Cannula 2.0 28 07/21/18 19:59 Nasal Cannula 2.0 28 07/21/18 19:59 95 Nasal Cannula 2.0 28 07/21/18 19:59 106 20 97 Nasal Cannula 2.0 28 Intake and Output 07/21/18 07/22/18 19:00 07:00 Intake Total 1200 ml 400 ml Output Total 1100 ml Balance 1200 ml -700 ml Intake Oral 1200 ml 400 ml Output Urine Total 1100 ml Laboratory Tests Test 07/22/18 08:25 White Blood Count 6.6 K/UL (4.8-10.8) Red Blood Count 2.73 M/UL (4.70-6.10) L Hemoglobin 8.5 G/DL (14.2-18.0) L Hematocrit 27.5 % (42.0-52.0) L Mean Corpuscular Volume 101 FL (80-99) H Mean Corpuscular Hemoglobin 31.0 PG (27.0-31.0) Mean Corpuscular Hemoglobin Concent 30.7 G/DL (32.0-36.0) L Red Cell Distribution Width 13.7 % (11.6-14.8) Platelet Count 263 K/UL (150-450) Mean Platelet Volume 6.7 FL (6.5-10.1) Neutrophils (%) (Auto) 67.2 % (45.0-75.0) Lymphocytes (%) (Auto) 8.6 % (20.0-45.0) L Monocytes (%) (Auto) 13.3 % (1.0-10.0) H Eosinophils (%) (Auto) 8.3 % (0.0-3.0) H Basophils (%) (Auto) 2.6 % (0.0-2.0) H Sodium Level 135 MMOL/L (136-145) L Potassium Level 4.5 MMOL/L (3.5-5.1) Chloride Level 98 MMOL/L (98-107) Carbon Dioxide Level 28 MMOL/L (21-32) Anion Gap 9 mmol/L (5-15) Blood Urea Nitrogen 57 mg/dL (7-18) H Creatinine 6.4 MG/DL (0.55-1.30) H Estimat Glomerular Filtration Rate 10.9 mL/min (>60) Glucose Level 137 MG/DL (74-106) H Calcium Level 8.7 MG/DL (8.5-10.1) Phosphorus Level 3.4 MG/DL (2.5-4.9) Magnesium Level 1.7 MG/DL (1.8-2.4) L Lipase 124 U/L (73-393) Objective HEAD AND NECK: No JVD. LUNGS: Decreased breath sounds.Right IJ PermCath in place CARDIOVASCULAR: Regular S1 and S2 with no gallop or murmur. ABDOMEN: Soft. EXTREMITIES: 1 plus pitting edema. German Gray MD Jul 22, 2018 17:31
[2018-07-22] MEDS ORDERED: Minoxidil 2.5mg tab ORAL PRN (17:45)
--- NOTE | 2018-07-22 19:16 | Pulmonology Progress Note ---
Assessment/Plan Problems: (1) Epistaxis (2) Acute exacerbation of CHF (congestive heart failure) (3) Hypertensive cardiomegaly with heart failure (4) ACS (acute coronary syndrome) (5) Cocaine abuse (6) ARF (acute renal failure) (7) DDD (degenerative disc disease) Assessment/Plan ASSESSMENT: The patient is a 58-year-old male with history of cocaine and tobacco abuse, congestive heart failure, and renal impairment, presenting with decompensated heart failure and abnormal renal function with marked uremia. He has previously been told he needs dialysis. He is now being admitted for acute coronary syndrome and likely need for dialysis. PROBLEM LIST: 1. Congestive heart failure with acute decompensated heart failure. 2. Abnormal renal function, likely cardiorenal syndrome. 3. History of cocaine abuse with current positive tox screen. 4. Anemia. 5. Hypertension with hypertensive urgency. 6. Acute coronary syndrome/non-ST elevation myocardial infarction. 7. Acute on chronic LBP with radiculopathy ---> DDD/SS TREATMENT PLAN: -HD per renal, UF as able -Control BP -F/U cards and renal recs -Cardiac diet -F/U heme recs -F/U GI recs ---> plan for OP EGD/colo -DVT Px: hep SQ -Pain control/supportive care -F/U pain management recs -Appreciate psych eval, has capacity, F/U recs -SW assistance in placement Subjective Allergies: Coded Allergies: No Known Allergies (Unverified , 07/08/18) Subjective AFVSS stable O2 needs Edema better GI eval noted No change in chronic back pain, feels muscles are tight No SOB, no CP, no F/C Objective Last 24 Hour Vital Signs Date Time Temp Pulse Resp B/P (MAP) Pulse Ox O2 Delivery O2 Flow Rate FiO2 07/22/18 16:00 98.1 102 20 137/82 (100) 98 07/22/18 15:45 99 20 100 Nasal Cannula 2.0 28 07/22/18 15:33 98 20 96 Nasal Cannula 2.0 28 07/22/18 13:46 115/65 07/22/18 12:00 97.9 108 20 115/65 (82) 95 07/22/18 11:40 109 21 97 Nasal Cannula 2.0 28 07/22/18 11:27 112 22 91 Room Air 21 07/22/18 09:30 98.2 108 20 114/61 (78) 92 07/22/18 09:00 Nasal Cannula 2.0 07/22/18 08:51 167/113 07/22/18 08:50 167/113 07/22/18 08:49 116 167/113 07/22/18 08:49 116 167/113 07/22/18 08:00 100.3 116 23 167/113 (131) 93 07/22/18 08:00 110 22 95 Nasal Cannula 2.0 28 07/22/18 07:50 Room Air 21 07/22/18 07:50 115 18 90 Room Air 21 07/22/18 07:50 90 Room Air 21 07/22/18 06:00 98.7 110 19 140/93 (109) 91 07/22/18 05:55 165/97 07/22/18 04:00 98.7 114 19 165/97 (119) 96 07/22/18 02:56 116 20 96 Nasal Cannula 2.0 28 07/22/18 02:46 115 18 94 Nasal Cannula 2.0 28 07/22/18 00:00 99.1 110 19 164/106 (125) 97 07/21/18 23:21 113 18 96 Nasal Cannula 2.0 28 07/21/18 23:11 111 20 94 Nasal Cannula 2.0 28 07/21/18 22:03 139/78 07/21/18 21:00 Nasal Cannula 2.0 07/21/18 20:42 106 139/78 07/21/18 20:00 98.5 105 19 140/88 (105) 98 07/21/18 19:59 104 18 95 Nasal Cannula 2.0 28 07/21/18 19:59 Nasal Cannula 2.0 28 07/21/18 19:59 95 Nasal Cannula 2.0 28 07/21/18 19:59 106 20 97 Nasal Cannula 2.0 28 Intake and Output 07/21/18 07/22/18 19:00 07:00 Intake Total 1200 ml 400 ml Output Total 1100 ml Balance 1200 ml -700 ml Intake Oral 1200 ml 400 ml Output Urine Total 1100 ml General Appearance: no acute distress HEENT: normocephalic, atraumatic, anicteric, mucous membranes moist Respiratory/Chest: chest wall non-tender, lungs clear, normal breath sounds, no respiratory distress, no accessory muscle use Cardiovascular: normal peripheral pulses, normal rate, regular rhythm Abdomen: normal bowel sounds, soft, non tender, no organomegaly, non distended , no mass Extremities: no cyanosis, no clubbing, other - 1+ edema Laboratory Tests 07/22/18 08:25: White Blood Count 6.6, Red Blood Count 2.73L, Hemoglobin 8.5L, Hematocrit 27.5L , Mean Corpuscular Volume 101H, Mean Corpuscular Hemoglobin 31.0, Mean Corpuscular Hemoglobin Concent 30.7L, Red Cell Distribution Width 13.7, Platelet Count 263, Mean Platelet Volume 6.7, Neutrophils (%) (Auto) 67.2, Lymphocytes (%) (Auto) 8.6L, Monocytes (%) (Auto) 13.3H, Eosinophils (%) (Auto) 8.3H, Basophils (%) (Auto) 2.6H, Sodium Level 135L, Potassium Level 4.5, Chloride Level 98, Carbon Dioxide Level 28, Anion Gap 9, Blood Urea Nitrogen 57H , Creatinine 6.4H, Estimat Glomerular Filtration Rate 10.9, Glucose Level 137H, Calcium Level 8.7, Phosphorus Level 3.4, Magnesium Level 1.7L, Lipase 124 Current Medications Medications (Trade) Dose Ordered Sig/Harish Route PRN Reason Start Time Stop Time Status Last Admin Dose Admin Acetaminophen (Tylenol) 650 mg Q4H PRN ORAL Mild Pain/Temp > 100.5 07/17/18 23:15 08/07/18 23:14 07/20/18 09:17 Acetaminophen/ Hydrocodone Bitart ([place] 10/325) 1 tab Q4H PRN ORAL Severe Pain (Pain Scale 7-10) 07/21/18 08:54 07/27/18 08:53 07/22/18 18:26 Albuterol/ Ipratropium (Albuterol/ Ipratropium) 3 ml Q4HRT HHN 07/19/18 23:00 07/24/18 22:59 07/22/18 15:33 Allopurinol (Zyloprim) 200 mg DAILY ORAL 07/18/18 09:00 08/11/18 08:59 07/22/18 08:49 Amlodipine Besylate (Norvasc) 2.5 mg DAILY ORAL 07/23/18 09:00 08/18/18 08:59 Aspirin (ASA) 81 mg DAILY ORAL 07/18/18 09:00 08/08/18 08:59 07/22/18 08:48 Carvedilol (Coreg) 25 mg EVERY 12 HOURS ORAL 07/20/18 21:00 08/19/18 20:59 07/22/18 08:49 Clonidine HCl (Catapres Tab) 0.1 mg Q12HR ORAL 07/22/18 21:00 08/19/18 13:59 Dextrose (Dextrose 50%) 25 ml Q30M PRN IV Hypoglycemia 07/17/18 21:15 08/07/18 23:14 Dextrose (Dextrose 50%) 50 ml Q30M PRN IV Hypoglycemia 07/17/18 21:15 08/07/18 23:14 Diphenhydramine HCl (Benadryl) 25 mg Q6H PRN ORAL Itching/Pruritis 07/17/18 23:15 08/07/18 23:14 07/21/18 22:10 Docusate Sodium (Colace) 100 mg THREE TIMES A DAY ORAL 07/21/18 18:00 08/20/18 17:59 07/22/18 18:20 Epoetin [place] (Procrit (for non ESRD use)) 10,000 units FRI-FRI-FRI SUBQ 07/17/18 22:00 08/12/18 21:59 07/20/18 21:58 Gabapentin (Neurontin) 200 mg THREE TIMES A DAY ORAL 07/18/18 18:00 08/17/18 17:59 07/22/18 18:20 Heparin Sodium (Porcine) (Heparin 5000 units/ml) 5,000 units EVERY 12 HOURS SUBQ 07/17/18 22:00 08/14/18 21:59 07/22/18 08:54 Isosorbide Mononitrate (Imdur) 60 mg DAILY ORAL 07/18/18 09:00 08/11/18 08:59 07/22/18 08:51 Lisinopril (Zestril) 10 mg DAILY ORAL 07/20/18 09:00 08/19/18 08:59 07/22/18 08:50 Minoxidil (Loniten) 2.5 mg Q4H PRN ORAL bp over 165 syst 07/22/18 17:45 08/10/18 13:44 Pantoprazole (Protonix) 40 mg DAILY ORAL 07/23/18 09:00 08/10/18 21:59 Polyethylene Glycol (Miralax) 17 gm BEDTIME ORAL 07/21/18 21:00 08/20/18 20:59 07/21/18 20:43 Sevelamer Carbonate (Renvela) 2,400 mg THREE TIMES A DAY ORAL 07/18/18 09:00 08/08/18 17:59 07/22/18 18:20 Tamsulosin HCl (Flomax) 0.4 mg QHS ORAL 07/18/18 21:00 08/09/18 12:52 07/21/18 22:02 Edgard Webb MD Jul 22, 2018 19:16
--- NOTE | 2018-07-22 20:28 | General Progress Note ---
Assessment/Plan Assessment/Plan # Anemia of chronic disease, multifactorial, grace on ckd --> Anemia w/u has been reviewed --> No evidence of hemolysis is noted, peripheral smear has been reviewed. --> Hgb goal >7. Transfuse prn. --> continue on epo sq # Congestive heart failure with acute decompensated heart failure. --> per cards management --> In tele unit --> on diuresis # Abnormal renal function, likely cardiorenal syndrome. --> Nephrology is following appreciate recs --> BRIDGETT kidneys with minimal fullness, seen by renal, echogenicity is wnl # History of cocaine abuse with current positive tox screen. --> recommend cessation # Hypertension with hypertensive urgency. --> On Norvasc 5 mg bid, Hydralazine,Imdur and Clonidine patch. --> Avoid beta-blockers for active cocaine # Acute coronary syndrome/non-ST elevation myocardial infarction. --> per cards GREATLY APPRECIATE CONSULTATION. Date and time note entered does not reflect time and date patient was seen. Subjective Constitutional: Denies: no symptoms, chills, diaphoresis, fever, malaise, weakness, other HEENT: Denies: no symptoms, eye pain, blurred vision, tearing, double vision, ear pain, ear discharge, nose pain, nose congestion, throat pain, throat swelling, mouth pain, mouth swelling, other Cardiovascular: Denies: no symptoms, chest pain, edema, irregular heart rate, lightheadedness, palpitations, syncope, other Respiratory: Denies: no symptoms, cough, orthopnea, shortness of breath, SOB with excertion, SOB at rest, sputum, stridor, wheezing, other Gastrointestinal/Abdominal: Denies: no symptoms, abdomen distended, abdominal pain, black stools, tarry stools, blood in stool, constipated, diarrhea, difficulty swallowing, nausea, poor appetite, poor fluid intake, rectal bleeding , vomiting, other Genitourinary: Denies: no symptoms, burning, discharge, frequency, flank pain, hematuria, incontinence, pain, urgency, other Neurologic/Psychiatric: Denies: no symptoms, anxiety, depressed, emotional problems, headache, numbness, paresthesia, pre-existing deficit, seizure, tingling, tremors, weakness, other Endocrine: Denies: no symptoms, excessive sweating, flushing, intolerance to cold, intolerance to heat, increased hunger, increased thirst, increased urine, unexplained weight gain, unexplained weight loss, other Hematologic/Lymphatic: Denies: no symptoms, anemia, easy bleeding, easy bruising, other Allergies: Coded Allergies: No Known Allergies (Unverified , 07/08/18) Subjective 07/12: no events, cr trending, h/h stable, on epo 07/14: transfuse one unit 07/13, diruresed, refused mendez, seen by cards, bp better 07/15 : Pt is seen in the room, awake and alert, S/P blood transfusion, refusing HD 07/16 : Pt is awake and resting in bed. waiting on sister to make HD decision, no events 07/17 Pt is seen in the room,awake and alert, appears to be agreeable for placement of dialysis cath and dialysis . 07/18: Pt is seen in the room, No CP or SOB. Had HD today. 07/19: Pt is awake and resting in bed. Denies pain, SOB or fevers and chills. Has HD scheduled for 07/20/18, currently stable. 07/20: received hand held nebulizer, no other events, no f.c 07/21 : Pt seen by bedside, continues on breathing treatment, HD 07/22/18, no events 07/22: pending snf placement and outpatient hd Objective Last 24 Hour Vital Signs Date Time Temp Pulse Resp B/P (MAP) Pulse Ox O2 Delivery O2 Flow Rate FiO2 07/22/18 20:09 109 20 99 Nasal Cannula 2.0 28 07/22/18 19:59 94 Nasal Cannula 2.0 28 07/22/18 19:59 106 20 94 Nasal Cannula 2.0 28 07/22/18 19:59 Nasal Cannula 2.0 28 07/22/18 16:00 98.1 102 20 137/82 (100) 98 07/22/18 15:45 99 20 100 Nasal Cannula 2.0 28 07/22/18 15:33 98 20 96 Nasal Cannula 2.0 28 07/22/18 13:46 115/65 07/22/18 12:00 97.9 108 20 115/65 (82) 95 07/22/18 11:40 109 21 97 Nasal Cannula 2.0 28 07/22/18 11:27 112 22 91 Room Air 21 07/22/18 09:30 98.2 108 20 114/61 (78) 92 07/22/18 09:00 Nasal Cannula 2.0 07/22/18 08:51 167/113 07/22/18 08:50 167/113 07/22/18 08:49 116 167/113 07/22/18 08:49 116 167/113 07/22/18 08:00 100.3 116 23 167/113 (131) 93 07/22/18 08:00 110 22 95 Nasal Cannula 2.0 28 07/22/18 07:50 Room Air 21 07/22/18 07:50 115 18 90 Room Air 21 07/22/18 07:50 90 Room Air 21 07/22/18 06:00 98.7 110 19 140/93 (109) 91 07/22/18 05:55 165/97 07/22/18 04:00 98.7 114 19 165/97 (119) 96 07/22/18 02:56 116 20 96 Nasal Cannula 2.0 28 07/22/18 02:46 115 18 94 Nasal Cannula 2.0 28 07/22/18 00:00 99.1 110 19 164/106 (125) 97 07/21/18 23:21 113 18 96 Nasal Cannula 2.0 28 07/21/18 23:11 111 20 94 Nasal Cannula 2.0 28 07/21/18 22:03 139/78 07/21/18 21:00 Nasal Cannula 2.0 07/21/18 20:42 106 139/78 Intake and Output 07/21/18 07/22/18 19:00 07:00 Intake Total 1200 ml 400 ml Output Total 1100 ml Balance 1200 ml -700 ml Intake Oral 1200 ml 400 ml Output Urine Total 1100 ml Laboratory Tests 07/22/18 08:25: White Blood Count 6.6, Red Blood Count 2.73L, Hemoglobin 8.5L, Hematocrit 27.5L , Mean Corpuscular Volume 101H, Mean Corpuscular Hemoglobin 31.0, Mean Corpuscular Hemoglobin Concent 30.7L, Red Cell Distribution Width 13.7, Platelet Count 263, Mean Platelet Volume 6.7, Neutrophils (%) (Auto) 67.2, Lymphocytes (%) (Auto) 8.6L, Monocytes (%) (Auto) 13.3H, Eosinophils (%) (Auto) 8.3H, Basophils (%) (Auto) 2.6H, Sodium Level 135L, Potassium Level 4.5, Chloride Level 98, Carbon Dioxide Level 28, Anion Gap 9, Blood Urea Nitrogen 57H , Creatinine 6.4H, Estimat Glomerular Filtration Rate 10.9, Glucose Level 137H, Calcium Level 8.7, Phosphorus Level 3.4, Magnesium Level 1.7L, Lipase 124 Height (Feet): 5 Height (Inches): 11.00 Weight (Pounds): 188 Objective Physical Exam General Appearance: A+O x2 NAD HEENT: normocephalic, atraumatic Neck: non-tender, normal alignment Respiratory/Chest: chest wall non-tender, lungs clear Cardiovascular/Chest: normal peripheral pulses, normal rate Abdomen: normal bowel sounds, non tender Extremities: normal range of motion Shane Mary MD Jul 22, 2018 20:28
[2018-07-22] MEDS: Epogen (for non ESRD use) SUBQ SCH (21:00)
[2018-07-22] MEDS: Tamsulosin 0.4mg cap ORAL SCH (21:00)
[2018-07-22] MEDS: Miralax 17gm pkt ORAL SCH (21:00)
[2018-07-23] VITALS (8 sets, daily range): BP systolic 124–148; BP diastolic 79–97
[2018-07-23] MEDS: Albuterol/Ipratropium 3ml neb HHN SCH ×4 (03:20→20:04)
[2018-07-23 07:53] LABS: EOSINOPHILS % (AUTO) 10.8 % (0.0-3.0); HEMATOCRIT 28.8 % (42.0-52.0); HEMOGLOBIN 8.8 G/DL (14.2-18.0); LYMPHOCYTES % (AUTO) 14.2 % (20.0-45.0); MEAN CORPUSCULAR VOLUME 100 FL (80-99); MONOCYTES % (AUTO) 13.9 % (1.0-10.0); NEUTROPHILS % (AUTO) 58.1 % (45.0-75.0); PLATELET COUNT 236 K/UL (150-450); RED BLOOD COUNT 2.87 M/UL (4.70-6.10); RED CELL DISTRIBUTION WIDTH 13.7 % (11.6-14.8); WHITE BLOOD COUNT 4.7 K/UL (4.8-10.8)
[2018-07-23 08:30] LABS: ANION GAP 10 mmol/L (5-15); BLOOD UREA NITROGEN 49 mg/dL (7-18); CALCIUM 8.9 MG/DL (8.5-10.1); CARBON DIOXIDE 28 MMOL/L (21-32); CHLORIDE 99 MMOL/L (98-107); CREATININE 5.7 MG/DL (0.55-1.30); POTASSIUM 4.5 MMOL/L (3.5-5.1); SODIUM 137 MMOL/L (136-145)
[2018-07-23] MEDS: Imdur 30mg tab ORAL SCH (08:47)
[2018-07-23] MEDS: Allopurinol 100mg Tab ORAL SCH (08:47)
[2018-07-23] MEDS: Docusate 100mg cap ORAL SCH ×3 (08:48→17:51)
[2018-07-23] MEDS: Lisinopril 10mg tab ORAL SCH ×2 (08:48→17:50)
[2018-07-23] MEDS: Aspirin Baby 81mg ORAL SCH (08:49)
[2018-07-23] MEDS: Carvedilol 25mg Tab ORAL SCH (08:49)
[2018-07-23] MEDS: HYDROcodone/Acetamin 10/325 tab ORAL PRN ×2 (08:50→17:55)
--- NOTE | 2018-07-23 08:50 | General Progress Note ---
Assessment/Plan Assessment/Plan (1) Lumbar DDD (2) Lumbar Spondylosis (3) Cocaine Abuse Patient will be continued on [place] as needed. D/w Dr. Rosado and he concurred. Subjective Date patient seen: Jul 23, 2018 Time patient seen: 07:15 - am Allergies: Coded Allergies: No Known Allergies (Unverified , 07/08/18) Subjective REVIEW OF SYSTEMS: Denies rash, fever, chills, sweating, dizziness, drowsiness, blurred vision, or change in weight. No shortness of breath or chest pain. No nausea, vomiting, diarrhea, or blood in the stool or urine. No bowel or bladder incontinence. He is complaining of low back pain. SUBJECTIVE: Patient has been doing well and reports that the pain has been stable on the [place] 2 doses in the last 24hrs. He has no new complaints at this time. Objective Last 24 Hour Vital Signs Date Time Temp Pulse Resp B/P (MAP) Pulse Ox O2 Delivery O2 Flow Rate FiO2 07/23/18 08:00 98.2 106 20 148/91 (110) 07/23/18 07:13 103 20 99 Nasal Cannula 2.0 28 07/23/18 07:05 105 20 95 Nasal Cannula 2.0 28 07/23/18 07:02 95 Nasal Cannula 2.0 28 07/23/18 07:02 Nasal Cannula 2.0 28 07/23/18 05:19 98.8 110 20 148/97 (114) 07/23/18 04:00 98.8 110 20 148/97 (114) 07/23/18 03:30 111 20 98 Nasal Cannula 2.0 28 07/23/18 03:20 111 20 95 Nasal Cannula 2.0 28 07/23/18 01:17 98.7 102 20 124/84 (97) 100 07/23/18 00:00 97.5 20 140/89 (106) 98 07/22/18 23:40 108 20 98 Nasal Cannula 2.0 28 07/22/18 23:28 108 20 95 Nasal Cannula 2.0 28 07/22/18 21:00 Nasal Cannula 2.0 07/22/18 21:00 140/89 07/22/18 21:00 106 140/89 07/22/18 20:09 109 20 99 Nasal Cannula 2.0 28 07/22/18 20:00 97.5 106 19 140/89 (106) 96 07/22/18 19:59 94 Nasal Cannula 2.0 28 07/22/18 19:59 106 20 94 Nasal Cannula 2.0 28 07/22/18 19:59 Nasal Cannula 2.0 28 07/22/18 16:00 98.1 102 20 137/82 (100) 98 07/22/18 15:45 99 20 100 Nasal Cannula 2.0 28 07/22/18 15:33 98 20 96 Nasal Cannula 2.0 28 07/22/18 13:46 115/65 07/22/18 12:00 97.9 108 20 115/65 (82) 95 07/22/18 11:40 109 21 97 Nasal Cannula 2.0 28 07/22/18 11:27 112 22 91 Room Air 21 07/22/18 09:30 98.2 108 20 114/61 (78) 92 07/22/18 09:00 Nasal Cannula 2.0 07/22/18 08:51 167/113 Intake and Output 07/22/18 07/23/18 19:00 07:00 Intake Total 1120 ml Output Total 3000 ml 4101 ml Balance -3000 ml -2981 ml Intake Oral 400 ml Other 720 ml Output Urine Total 1100 ml Stool Total 1 ml Hemodialysis UF 3000 ml 3000 ml # Voids 5 # Bowel Movements 1 Laboratory Tests 07/23/18 04:00: Uric Acid [Pending], Phosphorus Level [Pending], Magnesium Level [Pending], Total Bilirubin [Pending], Direct Bilirubin [Pending], Aspartate Amino Transf ( AST/SGOT) [Pending], Alanine Aminotransferase (ALT/SGPT) [Pending], Alkaline Phosphatase [Pending], Total Protein [Pending], Albumin [Pending] 07/23/18 07:27: White Blood Count 4.7L, Red Blood Count 2.87L, Hemoglobin 8.8L, Hematocrit 28.8L , Mean Corpuscular Volume 100H, Mean Corpuscular Hemoglobin 30.8, Mean Corpuscular Hemoglobin Concent 30.6L, Red Cell Distribution Width 13.7, Platelet Count 236, Mean Platelet Volume 6.9, Neutrophils (%) (Auto) 58.1, Lymphocytes (%) (Auto) 14.2L, Monocytes (%) (Auto) 13.9H, Eosinophils (%) (Auto ) 10.8H, Basophils (%) (Auto) 3.0H, Sodium Level 137, Potassium Level 4.5, Chloride Level 99, Carbon Dioxide Level 28, Anion Gap 10, Blood Urea Nitrogen 49H, Creatinine 5.7H, Estimat Glomerular Filtration Rate 12.5, Glucose Level 105 , Calcium Level 8.9 Height (Feet): 5 Height (Inches): 11.00 Weight (Pounds): 188 Objective GENERAL: Alert, awake, and oriented. LUNGS: Decreased breath sounds bilaterally. HEART: S1 and S2 regular. ABDOMEN: Soft, nontender. EXTREMITIES: No CCE NEURO: No changes. James Ramirez Jul 23, 2018 08:50
[2018-07-23 08:54] LABS: ALANINE AMINOTRANSFERASE 23 U/L (12-78); ALBUMIN 2.7 G/DL (3.4-5.0); ALKALINE PHOSPHATASE 113 U/L (46-116); ASPARTATE AMINO TRANSFERASE 19 U/L (15-37); BILIRUBIN,DIRECT < 0.1 MG/DL (0.0-0.3); BILIRUBIN,TOTAL 0.2 MG/DL (0.2-1.0); PHOSPHORUS 3.4 MG/DL (2.5-4.9)
[2018-07-23] MEDS: Heparin 5000 units/ml inj SUBQ SCH ×2 (08:55→21:09)
--- NOTE | 2018-07-23 11:09 | Nephrology Progress Note ---
Assessment/Plan Problem List: (1) ARF (acute renal failure) (2) Cocaine abuse (3) Acute exacerbation of CHF (congestive heart failure) (4) Hypertensive cardiomegaly with heart failure Assessment Acute on Chronic renal failure Anemia Elevated troponin Hypertensive renal and heart disease Cocaine abuse Cardiomyopathy Plan next HD 07/24 aim to UF 3 liters readjust bp meds Dc planning in am after HD transfuse one unit 07/[address] Moura 2D Echo 55% ej fx BRIDGETT kidneys * Mild fullness of the bilateral renal collecting systems without radiographically appreciable stone and observed bilateral ureteral jets. Findings may be related to mild bladder distention. Consider repeat exam after bladder decompression. monitor renal parameters Avoid nephrotoxics renal diet flomax Subjective ROS Limited/Unobtainable: No Constitutional: Reports: malaise Objective Objective Last 24 Hour Vital Signs Date Time Temp Pulse Resp B/P (MAP) Pulse Ox O2 Delivery O2 Flow Rate FiO2 07/23/18 11:02 94 20 100 Nasal Cannula 2.0 28 07/23/18 10:52 99 20 99 Nasal Cannula 2.0 28 07/23/18 09:04 106 148/91 07/23/18 09:00 Nasal Cannula 2.0 07/23/18 08:49 106 148/91 07/23/18 08:48 148/91 07/23/18 08:48 148/91 07/23/18 08:47 148/91 07/23/18 08:00 98.2 106 20 148/91 (110) 07/23/18 07:13 103 20 99 Nasal Cannula 2.0 28 07/23/18 07:05 105 20 95 Nasal Cannula 2.0 28 07/23/18 07:02 95 Nasal Cannula 2.0 28 07/23/18 07:02 Nasal Cannula 2.0 28 07/23/18 05:19 98.8 110 20 148/97 (114) 07/23/18 04:00 98.8 110 20 148/97 (114) 07/23/18 03:30 111 20 98 Nasal Cannula 2.0 28 07/23/18 03:20 111 20 95 Nasal Cannula 2.0 28 07/23/18 01:17 98.7 102 20 124/84 (97) 100 07/23/18 00:00 97.5 20 140/89 (106) 98 07/22/18 23:40 108 20 98 Nasal Cannula 2.0 28 07/22/18 23:28 108 20 95 Nasal Cannula 2.0 28 07/22/18 21:00 Nasal Cannula 2.0 07/22/18 21:00 140/89 07/22/18 21:00 106 140/89 07/22/18 20:09 109 20 99 Nasal Cannula 2.0 28 07/22/18 20:00 97.5 106 19 140/89 (106) 96 07/22/18 19:59 94 Nasal Cannula 2.0 28 07/22/18 19:59 106 20 94 Nasal Cannula 2.0 28 07/22/18 19:59 Nasal Cannula 2.0 28 07/22/18 16:00 98.1 102 20 137/82 (100) 98 07/22/18 15:45 99 20 100 Nasal Cannula 2.0 28 07/22/18 15:33 98 20 96 Nasal Cannula 2.0 28 07/22/18 13:46 115/65 07/22/18 12:00 97.9 108 20 115/65 (82) 95 07/22/18 11:40 109 21 97 Nasal Cannula 2.0 28 07/22/18 11:27 112 22 91 Room Air 21 Intake and Output 07/22/18 07/23/18 19:00 07:00 Intake Total 1120 ml Output Total 3000 ml 4101 ml Balance -3000 ml -2981 ml Intake Oral 400 ml Other 720 ml Output Urine Total 1100 ml Stool Total 1 ml Hemodialysis UF 3000 ml 3000 ml # Voids 5 # Bowel Movements 1 Laboratory Tests 07/23/18 07:27: White Blood Count 4.7L, Red Blood Count 2.87L, Hemoglobin 8.8L, Hematocrit 28.8L , Mean Corpuscular Volume 100H, Mean Corpuscular Hemoglobin 30.8, Mean Corpuscular Hemoglobin Concent 30.6L, Red Cell Distribution Width 13.7, Platelet Count 236, Mean Platelet Volume 6.9, Neutrophils (%) (Auto) 58.1, Lymphocytes (%) (Auto) 14.2L, Monocytes (%) (Auto) 13.9H, Eosinophils (%) (Auto ) 10.8H, Basophils (%) (Auto) 3.0H, Sodium Level 137, Potassium Level 4.5, Chloride Level 99, Carbon Dioxide Level 28, Anion Gap 10, Blood Urea Nitrogen 49H, Creatinine 5.7H, Estimat Glomerular Filtration Rate 12.5, Glucose Level 105 , Uric Acid 4.2, Calcium Level 8.9, Phosphorus Level 3.4, Magnesium Level 1.7L, Total Bilirubin 0.2, Direct Bilirubin < 0.1, Aspartate Amino Transf (AST/SGOT) 19, Alanine Aminotransferase (ALT/SGPT) 23, Alkaline Phosphatase 113, Total Protein 6.4, Albumin 2.7L Height (Feet): 5 Height (Inches): 11.00 Weight (Pounds): 188 General Appearance: no apparent distress Cardiovascular: tachycardia Objective no change Richar Cm MD Jul 23, 2018 11:09
--- NOTE | 2018-07-23 11:30 | GI Progress Note ---
Assessment/Plan Problems: (1) Macrocytic anemia ICD Codes: D53.9 - Nutritional anemia, unspecified SNOMED: 41966296 (2) Iron deficiency ICD Codes: E61.1 - Iron deficiency SNOMED: 46953253 (3) Constipation ICD Codes: K59.00 - Constipation, unspecified SNOMED: 39457542 (4) Cocaine abuse ICD Codes: F14.10 - Cocaine abuse, uncomplicated SNOMED: 45280776 (5) Pancreatitis ICD Codes: K85.90 - Acute pancreatitis without necrosis or infection, unspecified SNOMED: 37834314 Status: stable, unchanged Status Narrative Discussed with Dr. Shea. Assessment/Plan Pancreatitis now resolved Hepatitis panel negative history of hernia repair Patient will require cardiac clearance prior to any GI procedures OB stool r/o GI bleed monitor H&H, prn transfusions bowel regime ppi venofer renal diet fu labs Outpatient GI procedures The patient was seen and examined at bedside and all new and available data was reviewed in the patients chart. I agree with the above findings, impression and plan. (Patient seen earlier today. Signature stamp does not reflect patient encounter time.). - Nikolas Shea MD Subjective Subjective Stated he had a bowel movement yesterday has complaint of lower abdominal pain, believes there is problem with his hernia mesh Objective Last 24 Hour Vital Signs Date Time Temp Pulse Resp B/P (MAP) Pulse Ox O2 Delivery O2 Flow Rate FiO2 07/23/18 11:02 94 20 100 Nasal Cannula 2.0 28 07/23/18 10:52 99 20 99 Nasal Cannula 2.0 28 07/23/18 09:04 106 148/91 07/23/18 09:00 Nasal Cannula 2.0 07/23/18 08:49 106 148/91 07/23/18 08:48 148/91 07/23/18 08:48 148/91 07/23/18 08:47 148/91 07/23/18 08:00 98.2 106 20 148/91 (110) 07/23/18 07:13 103 20 99 Nasal Cannula 2.0 28 07/23/18 07:05 105 20 95 Nasal Cannula 2.0 28 07/23/18 07:02 95 Nasal Cannula 2.0 28 07/23/18 07:02 Nasal Cannula 2.0 28 07/23/18 05:19 98.8 110 20 148/97 (114) 07/23/18 04:00 98.8 110 20 148/97 (114) 07/23/18 03:30 111 20 98 Nasal Cannula 2.0 28 07/23/18 03:20 111 20 95 Nasal Cannula 2.0 28 07/23/18 01:17 98.7 102 20 124/84 (97) 100 07/23/18 00:00 97.5 20 140/89 (106) 98 07/22/18 23:40 108 20 98 Nasal Cannula 2.0 28 07/22/18 23:28 108 20 95 Nasal Cannula 2.0 28 07/22/18 21:00 Nasal Cannula 2.0 07/22/18 21:00 140/89 07/22/18 21:00 106 140/89 07/22/18 20:09 109 20 99 Nasal Cannula 2.0 28 07/22/18 20:00 97.5 106 19 140/89 (106) 96 07/22/18 19:59 94 Nasal Cannula 2.0 28 07/22/18 19:59 106 20 94 Nasal Cannula 2.0 28 07/22/18 19:59 Nasal Cannula 2.0 28 07/22/18 16:00 98.1 102 20 137/82 (100) 98 07/22/18 15:45 99 20 100 Nasal Cannula 2.0 28 07/22/18 15:33 98 20 96 Nasal Cannula 2.0 28 07/22/18 13:46 115/65 07/22/18 12:00 97.9 108 20 115/65 (82) 95 07/22/18 11:40 109 21 97 Nasal Cannula 2.0 28 Intake and Output 07/22/18 07/23/18 19:00 07:00 Intake Total 1120 ml Output Total 3000 ml 4101 ml Balance -3000 ml -2981 ml Intake Oral 400 ml Other 720 ml Output Urine Total 1100 ml Stool Total 1 ml Hemodialysis UF 3000 ml 3000 ml # Voids 5 # Bowel Movements 1 Laboratory Tests Test 07/23/18 07:27 White Blood Count 4.7 K/UL (4.8-10.8) L Red Blood Count 2.87 M/UL (4.70-6.10) L Hemoglobin 8.8 G/DL (14.2-18.0) L Hematocrit 28.8 % (42.0-52.0) L Mean Corpuscular Volume 100 FL (80-99) H Mean Corpuscular Hemoglobin 30.8 PG (27.0-31.0) Mean Corpuscular Hemoglobin Concent 30.6 G/DL (32.0-36.0) L Red Cell Distribution Width 13.7 % (11.6-14.8) Platelet Count 236 K/UL (150-450) Mean Platelet Volume 6.9 FL (6.5-10.1) Neutrophils (%) (Auto) 58.1 % (45.0-75.0) Lymphocytes (%) (Auto) 14.2 % (20.0-45.0) L Monocytes (%) (Auto) 13.9 % (1.0-10.0) H Eosinophils (%) (Auto) 10.8 % (0.0-3.0) H Basophils (%) (Auto) 3.0 % (0.0-2.0) H Sodium Level 137 MMOL/L (136-145) Potassium Level 4.5 MMOL/L (3.5-5.1) Chloride Level 99 MMOL/L (98-107) Carbon Dioxide Level 28 MMOL/L (21-32) Anion Gap 10 mmol/L (5-15) Blood Urea Nitrogen 49 mg/dL (7-18) H Creatinine 5.7 MG/DL (0.55-1.30) H Estimat Glomerular Filtration Rate 12.5 mL/min (>60) Glucose Level 105 MG/DL (74-106) Uric Acid 4.2 MG/DL (2.6-7.2) Calcium Level 8.9 MG/DL (8.5-10.1) Phosphorus Level 3.4 MG/DL (2.5-4.9) Magnesium Level 1.7 MG/DL (1.8-2.4) L Total Bilirubin 0.2 MG/DL (0.2-1.0) Direct Bilirubin < 0.1 MG/DL (0.0-0.3) Aspartate Amino Transf (AST/SGOT) 19 U/L (15-37) Alanine Aminotransferase (ALT/SGPT) 23 U/L (12-78) Alkaline Phosphatase 113 U/L (46-116) C-Reactive Protein, Quantitative Pending Total Protein 6.4 G/DL (6.4-8.2) Albumin 2.7 G/DL (3.4-5.0) L Height (Feet): 5 Height (Inches): 11.00 Weight (Pounds): 188 General Appearance: WD/WN, no apparent distress, alert Cardiovascular: normal rate Respiratory/Chest: normal breath sounds, no respiratory distress Abdominal Exam: normal bowel sounds, non tender, soft Extremities: normal range of motion, non-tender Daja Murdock NP Jul 23, 2018 11:30
[2018-07-23] MEDS ORDERED: Iron Sucrose 200 MG in NS 50 ML IV SCH (13:00)
--- NOTE | 2018-07-23 13:58 | Pulmonology Progress Note ---
Assessment/Plan Problems: (1) Epistaxis (2) Acute exacerbation of CHF (congestive heart failure) (3) Hypertensive cardiomegaly with heart failure (4) ACS (acute coronary syndrome) (5) Cocaine abuse (6) ARF (acute renal failure) (7) DDD (degenerative disc disease) Assessment/Plan ASSESSMENT: The patient is a 58-year-old male with history of cocaine and tobacco abuse, congestive heart failure, and renal impairment, presenting with decompensated heart failure and abnormal renal function with marked uremia. He has previously been told he needs dialysis. He is now being admitted for acute coronary syndrome and likely need for dialysis. PROBLEM LIST: 1. Congestive heart failure with acute decompensated heart failure. 2. Abnormal renal function, likely cardiorenal syndrome. 3. History of cocaine abuse with current positive tox screen. 4. Anemia. 5. Hypertension with hypertensive urgency. 6. Acute coronary syndrome/non-ST elevation myocardial infarction. 7. Acute on chronic LBP with radiculopathy ---> DDD/SS TREATMENT PLAN: -HD per renal, UF as able -Control BP -F/U cards and renal recs -Cardiac diet -F/U heme recs -F/U GI recs ---> plan for OP EGD/colo -DVT Px: hep SQ -Pain control/supportive care -F/U pain management recs -Appreciate psych eval, has capacity, F/U recs -SW assistance in placement Subjective Allergies: Coded Allergies: No Known Allergies (Unverified , 07/08/18) Subjective AFVSS stable O2 needs Edema unchange No change in chronic back pain No SOB, no CP, no F/C Objective Last 24 Hour Vital Signs Date Time Temp Pulse Resp B/P (MAP) Pulse Ox O2 Delivery O2 Flow Rate FiO2 07/23/18 12:00 98.2 93 20 128/82 (97) 95 07/23/18 11:02 94 20 100 Nasal Cannula 2.0 28 07/23/18 10:52 99 20 99 Nasal Cannula 2.0 28 07/23/18 09:04 106 148/91 07/23/18 09:00 Nasal Cannula 2.0 07/23/18 08:49 106 148/91 07/23/18 08:48 148/91 07/23/18 08:48 148/91 07/23/18 08:47 148/91 07/23/18 08:00 98.2 106 20 148/91 (110) 07/23/18 07:13 103 20 99 Nasal Cannula 2.0 28 07/23/18 07:05 105 20 95 Nasal Cannula 2.0 28 07/23/18 07:02 95 Nasal Cannula 2.0 28 07/23/18 07:02 Nasal Cannula 2.0 28 07/23/18 05:19 98.8 110 20 148/97 (114) 07/23/18 04:00 98.8 110 20 148/97 (114) 07/23/18 03:30 111 20 98 Nasal Cannula 2.0 28 07/23/18 03:20 111 20 95 Nasal Cannula 2.0 28 07/23/18 01:17 98.7 102 20 124/84 (97) 100 07/23/18 00:00 97.5 20 140/89 (106) 98 07/22/18 23:40 108 20 98 Nasal Cannula 2.0 28 07/22/18 23:28 108 20 95 Nasal Cannula 2.0 28 07/22/18 21:00 Nasal Cannula 2.0 07/22/18 21:00 140/89 07/22/18 21:00 106 140/89 07/22/18 20:09 109 20 99 Nasal Cannula 2.0 28 07/22/18 20:00 97.5 106 19 140/89 (106) 96 07/22/18 19:59 94 Nasal Cannula 2.0 28 07/22/18 19:59 106 20 94 Nasal Cannula 2.0 28 07/22/18 19:59 Nasal Cannula 2.0 28 07/22/18 16:00 98.1 102 20 137/82 (100) 98 07/22/18 15:45 99 20 100 Nasal Cannula 2.0 28 07/22/18 15:33 98 20 96 Nasal Cannula 2.0 28 Intake and Output 07/22/18 07/23/18 18:59 06:59 Intake Total 1120 ml Output Total 3000 ml 4101 ml Balance -3000 ml -2981 ml Intake Oral 400 ml Other 720 ml Output Urine Total 1100 ml Stool Total 1 ml Hemodialysis UF 3000 ml 3000 ml # Voids 5 # Bowel Movements 1 General Appearance: WD/WN, no acute distress HEENT: normocephalic, atraumatic, anicteric, mucous membranes moist Respiratory/Chest: chest wall non-tender, lungs clear, normal breath sounds, no respiratory distress, no accessory muscle use Cardiovascular: normal peripheral pulses, normal rate, regular rhythm Abdomen: normal bowel sounds, soft, non tender, no organomegaly, non distended , no mass Extremities: no cyanosis, no clubbing, other - 2+ STEPHANI Laboratory Tests 07/23/18 07:27: White Blood Count 4.7L, Red Blood Count 2.87L, Hemoglobin 8.8L, Hematocrit 28.8L , Mean Corpuscular Volume 100H, Mean Corpuscular Hemoglobin 30.8, Mean Corpuscular Hemoglobin Concent 30.6L, Red Cell Distribution Width 13.7, Platelet Count 236, Mean Platelet Volume 6.9, Neutrophils (%) (Auto) 58.1, Lymphocytes (%) (Auto) 14.2L, Monocytes (%) (Auto) 13.9H, Eosinophils (%) (Auto ) 10.8H, Basophils (%) (Auto) 3.0H, Sodium Level 137, Potassium Level 4.5, Chloride Level 99, Carbon Dioxide Level 28, Anion Gap 10, Blood Urea Nitrogen 49H, Creatinine 5.7H, Estimat Glomerular Filtration Rate 12.5, Glucose Level 105 , Uric Acid 4.2, Calcium Level 8.9, Phosphorus Level 3.4, Magnesium Level 1.7L, Total Bilirubin 0.2, Direct Bilirubin < 0.1, Aspartate Amino Transf (AST/SGOT) 19, Alanine Aminotransferase (ALT/SGPT) 23, Alkaline Phosphatase 113, C- Reactive Protein, Quantitative 9.4H, Total Protein 6.4, Albumin 2.7L Current Medications Medications (Trade) Dose Ordered Sig/Harish Route PRN Reason Start Time Stop Time Status Last Admin Dose Admin Acetaminophen (Tylenol) 650 mg Q4H PRN ORAL Mild Pain/Temp > 100.5 07/17/18 23:15 08/07/18 23:14 07/20/18 09:17 Acetaminophen/ Hydrocodone Bitart ([place] 10/325) 1 tab Q4H PRN ORAL Severe Pain (Pain Scale 7-10) 07/21/18 08:54 07/27/18 08:53 07/23/18 08:50 Albuterol/ Ipratropium (Albuterol/ Ipratropium) 3 ml Q4HRT HHN 07/19/18 23:00 1/11/19 22:59 07/23/18 10:51 Amlodipine Besylate (Norvasc) 10 mg DAILY ORAL 07/24/18 09:00 08/18/18 08:59 Aspirin (ASA) 81 mg DAILY ORAL 07/18/18 09:00 08/08/18 08:59 07/23/18 08:49 Clonidine HCl (Catapres Tab) 0.1 mg Q4H PRN ORAL bp over 165 syst 07/23/18 11:15 08/22/18 11:14 Dextrose (Dextrose 50%) 25 ml Q30M PRN IV Hypoglycemia 07/17/18 21:15 08/07/18 23:14 Dextrose (Dextrose 50%) 50 ml Q30M PRN IV Hypoglycemia 07/17/18 21:15 08/07/18 23:14 Diphenhydramine HCl (Benadryl) 25 mg Q6H PRN ORAL Itching/Pruritis 07/17/18 23:15 08/07/18 23:14 07/23/18 03:17 Docusate Sodium (Colace) 100 mg THREE TIMES A DAY ORAL 07/21/18 18:00 08/20/18 17:59 07/23/18 08:48 Epoetin Juan Pablo (Procrit (for non ESRD use)) 10,000 units FRI-FRI-FRI SUBQ 07/17/18 22:00 08/12/18 21:59 07/22/18 21:00 Gabapentin (Neurontin) 200 mg THREE TIMES A DAY ORAL 07/18/18 18:00 08/17/18 17:59 07/23/18 13:35 Heparin Sodium (Porcine) (Heparin 5000 units/ml) 5,000 units EVERY 12 HOURS SUBQ 07/17/18 22:00 08/14/18 21:59 07/23/18 08:55 Iron Sucrose 200 mg/Sodium Chloride 60 ml @ 200 mls/hr ONCE IV 07/23/18 13:00 07/23/18 15:00 07/23/18 13:35 Isosorbide Mononitrate (Imdur) 60 mg DAILY ORAL 07/18/18 09:00 08/11/18 08:59 07/23/18 08:47 Lisinopril (Zestril) 10 mg BID ORAL 07/23/18 18:00 08/19/18 08:59 Metoprolol Tartrate (Lopressor) 50 mg Q12HR ORAL 07/23/18 21:00 08/22/18 20:59 Pantoprazole (Protonix) 40 mg DAILY ORAL 07/23/18 09:00 08/10/18 21:59 07/23/18 08:48 Polyethylene Glycol (Miralax) 17 gm BEDTIME ORAL 07/21/18 21:00 08/20/18 20:59 07/22/18 21:00 Sevelamer Carbonate (Renvela) 800 mg THREE TIMES A DAY ORAL 07/23/18 13:00 08/08/18 17:59 07/23/18 13:35 Tamsulosin HCl (Flomax) 0.4 mg QHS ORAL 07/18/18 21:00 08/09/18 12:52 07/22/18 21:00 Edgard Webb MD Jul 23, 2018 13:58
--- NOTE | 2018-07-23 16:58 | Cardiac Electrophysiology PN ---
Assessment/Plan Assessment/Plan 1. Troponin leak in the setting of active cocaine use and renal failure. Troponin levels are flat at 0.2, 0.2 and 0.2. Avoid beta-pablo in view of active cocaine use. On aspirin and Lipitor EF 45%. No CP 2. Hypertension. On Norvasc 10 daily, Imdur 60, Lisinopril 10 daily, Clonidine 0.1 tid and HD per Dr Cm 3. End-stage renal disease, has not been started on hemodialysis. Cr 8.[address] Cm 4. Substance use with cocaine. Avoid beta-blockers. 5. Recent pneumonia. 6. Congestive heart failure. Echocardiogram EF 45% 7. Severe anemia s/p PRBCs . DW RN Subjective Subjective No CP or SOB. Had HD Objective Last 24 Hour Vital Signs Date Time Temp Pulse Resp B/P (MAP) Pulse Ox O2 Delivery O2 Flow Rate FiO2 07/23/18 12:00 98.2 93 20 128/82 (97) 95 07/23/18 11:02 94 20 100 Nasal Cannula 2.0 28 07/23/18 10:52 99 20 99 Nasal Cannula 2.0 28 07/23/18 09:04 106 148/91 07/23/18 09:00 Nasal Cannula 2.0 07/23/18 08:49 106 148/91 07/23/18 08:48 148/91 07/23/18 08:48 148/91 07/23/18 08:47 148/91 07/23/18 08:00 98.2 106 20 148/91 (110) 07/23/18 07:13 103 20 99 Nasal Cannula 2.0 28 07/23/18 07:05 105 20 95 Nasal Cannula 2.0 28 07/23/18 07:02 95 Nasal Cannula 2.0 28 07/23/18 07:02 Nasal Cannula 2.0 28 07/23/18 05:19 98.8 110 20 148/97 (114) 07/23/18 04:00 98.8 110 20 148/97 (114) 07/23/18 03:30 111 20 98 Nasal Cannula 2.0 28 07/23/18 03:20 111 20 95 Nasal Cannula 2.0 28 07/23/18 01:17 98.7 102 20 124/84 (97) 100 07/23/18 00:00 97.5 20 140/89 (106) 98 07/22/18 23:40 108 20 98 Nasal Cannula 2.0 28 07/22/18 23:28 108 20 95 Nasal Cannula 2.0 28 07/22/18 21:00 Nasal Cannula 2.0 07/22/18 21:00 140/89 07/22/18 21:00 106 140/89 07/22/18 20:09 109 20 99 Nasal Cannula 2.0 28 07/22/18 20:00 97.5 106 19 140/89 (106) 96 07/22/18 19:59 94 Nasal Cannula 2.0 28 07/22/18 19:59 106 20 94 Nasal Cannula 2.0 28 07/22/18 19:59 Nasal Cannula 2.0 28 Intake and Output 07/22/18 07/23/18 18:59 06:59 Intake Total 1120 ml Output Total 3000 ml 4101 ml Balance -3000 ml -2981 ml Intake Oral 400 ml Other 720 ml Output Urine Total 1100 ml Stool Total 1 ml Hemodialysis UF 3000 ml 3000 ml # Voids 5 # Bowel Movements 1 Laboratory Tests Test 07/23/18 07:27 White Blood Count 4.7 K/UL (4.8-10.8) L Red Blood Count 2.87 M/UL (4.70-6.10) L Hemoglobin 8.8 G/DL (14.2-18.0) L Hematocrit 28.8 % (42.0-52.0) L Mean Corpuscular Volume 100 FL (80-99) H Mean Corpuscular Hemoglobin 30.8 PG (27.0-31.0) Mean Corpuscular Hemoglobin Concent 30.6 G/DL (32.0-36.0) L Red Cell Distribution Width 13.7 % (11.6-14.8) Platelet Count 236 K/UL (150-450) Mean Platelet Volume 6.9 FL (6.5-10.1) Neutrophils (%) (Auto) 58.1 % (45.0-75.0) Lymphocytes (%) (Auto) 14.2 % (20.0-45.0) L Monocytes (%) (Auto) 13.9 % (1.0-10.0) H Eosinophils (%) (Auto) 10.8 % (0.0-3.0) H Basophils (%) (Auto) 3.0 % (0.0-2.0) H Sodium Level 137 MMOL/L (136-145) Potassium Level 4.5 MMOL/L (3.5-5.1) Chloride Level 99 MMOL/L (98-107) Carbon Dioxide Level 28 MMOL/L (21-32) Anion Gap 10 mmol/L (5-15) Blood Urea Nitrogen 49 mg/dL (7-18) H Creatinine 5.7 MG/DL (0.55-1.30) H Estimat Glomerular Filtration Rate 12.5 mL/min (>60) Glucose Level 105 MG/DL (74-106) Uric Acid 4.2 MG/DL (2.6-7.2) Calcium Level 8.9 MG/DL (8.5-10.1) Phosphorus Level 3.4 MG/DL (2.5-4.9) Magnesium Level 1.7 MG/DL (1.8-2.4) L Total Bilirubin 0.2 MG/DL (0.2-1.0) Direct Bilirubin < 0.1 MG/DL (0.0-0.3) Aspartate Amino Transf (AST/SGOT) 19 U/L (15-37) Alanine Aminotransferase (ALT/SGPT) 23 U/L (12-78) Alkaline Phosphatase 113 U/L (46-116) C-Reactive Protein, Quantitative 9.4 mg/dL (0.00-0.90) H Total Protein 6.4 G/DL (6.4-8.2) Albumin 2.7 G/DL (3.4-5.0) L Objective HEAD AND NECK: No JVD. LUNGS: Decreased breath sounds. Right IJ PermCath in place CARDIOVASCULAR: Regular S1 and S2 with no gallop or murmur. ABDOMEN: Soft. EXTREMITIES: 1 plus pitting edema. German Gray MD Jul 23, 2018 16:58
--- NOTE | 2018-07-23 20:29 | General Progress Note ---
Assessment/Plan Assessment/Plan # Anemia of chronic disease, multifactorial, grace on ckd --> Anemia w/u has been reviewed --> No evidence of hemolysis is noted, peripheral smear has been reviewed. --> Hgb goal >7. Transfuse prn. --> continue on epo sq # Congestive heart failure with acute decompensated heart failure. --> per cards management --> In tele unit --> on diuresis # Abnormal renal function, likely cardiorenal syndrome. --> Nephrology is following appreciate recs --> BRIDGETT kidneys with minimal fullness, seen by renal, echogenicity is wnl # History of cocaine abuse with current positive tox screen. --> recommend cessation # Hypertension with hypertensive urgency. --> On Norvasc 5 mg bid, Hydralazine,Imdur and Clonidine patch. --> Avoid beta-blockers for active cocaine # Acute coronary syndrome/non-ST elevation myocardial infarction. --> per cards The date and time note entered does not reflect time and date patient was seen. GREATLY APPRECIATE CONSULTATION. Subjective ROS Limited/Unobtainable: No Constitutional: Denies: no symptoms, chills, diaphoresis, fever, malaise, weakness, other HEENT: Denies: no symptoms, eye pain, blurred vision, tearing, double vision, ear pain, ear discharge, nose pain, nose congestion, throat pain, throat swelling, mouth pain, mouth swelling, other Cardiovascular: Denies: no symptoms, chest pain, edema, irregular heart rate, lightheadedness, palpitations, syncope, other Respiratory: Denies: no symptoms, cough, orthopnea, shortness of breath, SOB with excertion, SOB at rest, sputum, stridor, wheezing, other Gastrointestinal/Abdominal: Denies: no symptoms, abdomen distended, abdominal pain, black stools, tarry stools, blood in stool, constipated, diarrhea, difficulty swallowing, nausea, poor appetite, poor fluid intake, rectal bleeding , vomiting, other Genitourinary: Denies: no symptoms, burning, discharge, frequency, flank pain, hematuria, incontinence, pain, urgency, other Endocrine: Denies: no symptoms, excessive sweating, flushing, intolerance to cold, intolerance to heat, increased hunger, increased thirst, increased urine, unexplained weight gain, unexplained weight loss, other Hematologic/Lymphatic: Denies: no symptoms, anemia, easy bleeding, easy bruising, other Allergies: Coded Allergies: No Known Allergies (Unverified , 07/08/18) Subjective 07/12: no events, cr trending, h/h stable, on epo 07/14: transfuse one unit 07/13, diruresed, refused mendez, seen by cards, bp better 07/15 : Pt is seen in the room, awake and alert, S/P blood transfusion, refusing HD 07/16 : Pt is awake and resting in bed. waiting on sister to make HD decision, no events 07/17 Pt is seen in the room,awake and alert, appears to be agreeable for placement of dialysis cath and dialysis . 07/18: Pt is seen in the room, No CP or SOB. Had HD today. 07/19: Pt is awake and resting in bed. Denies pain, SOB or fevers and chills. Has HD scheduled for 07/20/18, currently stable. 07/20: received hand held nebulizer, no other events, no f.c 07/21 : Pt seen by bedside, continues on breathing treatment, HD 07/22/18, no events 07/22: pending snf placement and outpatient hd 07/23: awake and resting in bed. no acute events, waiting placement and outpatient HD Objective Last 24 Hour Vital Signs Date Time Temp Pulse Resp B/P (MAP) Pulse Ox O2 Delivery O2 Flow Rate FiO2 07/23/18 17:50 132/74 07/23/18 16:00 98.4 99 20 142/79 (100) 95 07/23/18 12:00 98.2 93 20 128/82 (97) 95 07/23/18 11:02 94 20 100 Nasal Cannula 2.0 28 07/23/18 10:52 99 20 99 Nasal Cannula 2.0 28 07/23/18 09:04 106 148/91 07/23/18 09:00 Nasal Cannula 2.0 07/23/18 08:49 106 148/91 07/23/18 08:48 148/91 07/23/18 08:48 148/91 07/23/18 08:47 148/91 07/23/18 08:00 98.2 106 20 148/91 (110) 07/23/18 07:13 103 20 99 Nasal Cannula 2.0 28 07/23/18 07:05 105 20 95 Nasal Cannula 2.0 28 07/23/18 07:02 95 Nasal Cannula 2.0 28 07/23/18 07:02 Nasal Cannula 2.0 28 07/23/18 05:19 98.8 110 20 148/97 (114) 07/23/18 04:00 98.8 110 20 148/97 (114) 07/23/18 03:30 111 20 98 Nasal Cannula 2.0 28 07/23/18 03:20 111 20 95 Nasal Cannula 2.0 28 07/23/18 01:17 98.7 102 20 124/84 (97) 100 07/23/18 00:00 97.5 20 140/89 (106) 98 07/22/18 23:40 108 20 98 Nasal Cannula 2.0 28 07/22/18 23:28 108 20 95 Nasal Cannula 2.0 28 07/22/18 21:00 Nasal Cannula 2.0 07/22/18 21:00 140/89 07/22/18 21:00 106 140/89 Intake and Output 07/22/18 07/23/18 19:00 07:00 Intake Total 1120 ml Output Total 3000 ml 4101 ml Balance -3000 ml -2981 ml Intake Oral 400 ml Other 720 ml Output Urine Total 1100 ml Stool Total 1 ml Hemodialysis UF 3000 ml 3000 ml # Voids 5 # Bowel Movements 1 Laboratory Tests 07/23/18 07:27: White Blood Count 4.7L, Red Blood Count 2.87L, Hemoglobin 8.8L, Hematocrit 28.8L , Mean Corpuscular Volume 100H, Mean Corpuscular Hemoglobin 30.8, Mean Corpuscular Hemoglobin Concent 30.6L, Red Cell Distribution Width 13.7, Platelet Count 236, Mean Platelet Volume 6.9, Neutrophils (%) (Auto) 58.1, Lymphocytes (%) (Auto) 14.2L, Monocytes (%) (Auto) 13.9H, Eosinophils (%) (Auto ) 10.8H, Basophils (%) (Auto) 3.0H, Sodium Level 137, Potassium Level 4.5, Chloride Level 99, Carbon Dioxide Level 28, Anion Gap 10, Blood Urea Nitrogen 49H, Creatinine 5.7H, Estimat Glomerular Filtration Rate 12.5, Glucose Level 105 , Uric Acid 4.2, Calcium Level 8.9, Phosphorus Level 3.4, Magnesium Level 1.7L, Total Bilirubin 0.2, Direct Bilirubin < 0.1, Aspartate Amino Transf (AST/SGOT) 19, Alanine Aminotransferase (ALT/SGPT) 23, Alkaline Phosphatase 113, C- Reactive Protein, Quantitative 9.4H, Total Protein 6.4, Albumin 2.7L Height (Feet): 5 Height (Inches): 11.00 Weight (Pounds): 188 Objective Physical Exam General Appearance: A+O x2 NAD HEENT: normocephalic, atraumatic Neck: non-tender, normal alignment Respiratory/Chest: chest wall non-tender, lungs clear Cardiovascular/Chest: normal peripheral pulses, normal rate Abdomen: normal bowel sounds, non tender Extremities: normal range of motion Shane Mary MD Jul 23, 2018 20:29
[2018-07-23] MEDS: Miralax 17gm pkt ORAL SCH (21:04)
[2018-07-23] MEDS: Tamsulosin 0.4mg cap ORAL SCH (21:04)
[2018-07-23] MEDS: Metoprolol Tartrate 50mg tab ORAL SCH (21:05)
--- NOTE | 2018-07-23 23:44 | General Progress Note ---
Assessment/Plan Problem List: (1) Cocaine abuse ICD Codes: F14.10 - Cocaine abuse, uncomplicated SNOMED: 19243675 (2) MDD (major depressive disorder) ICD Codes: F32.9 - Major depressive disorder, single episode, unspecified SNOMED: 923001036 (3) Cluster B personality disorder ICD Codes: F60.9 - Personality disorder, unspecified SNOMED: 8347343 Assessment/Plan the pt has capacity to refuse meds the pt may leave ama the pt is reluctant to take psych meds the pt was provided with ro/st/educate about the compliance Subjective Neurologic/Psychiatric: Reports: anxiety, depressed, emotional problems Allergies: Coded Allergies: No Known Allergies (Unverified , 07/08/18) Subjective the pt is more cooperative agreeing to HD and compliant with meds Objective Last 24 Hour Vital Signs Date Time Temp Pulse Resp B/P (MAP) Pulse Ox O2 Delivery O2 Flow Rate FiO2 07/23/18 21:05 92 138/95 07/23/18 20:14 98 20 99 Nasal Cannula 2.0 28 07/23/18 20:09 97 Nasal Cannula 2.0 28 07/23/18 20:09 Nasal Cannula 2.0 28 07/23/18 20:07 96 20 98 Nasal Cannula 2.0 28 07/23/18 17:50 132/74 07/23/18 16:00 98.4 99 20 142/79 (100) 95 07/23/18 12:00 98.2 93 20 128/82 (97) 95 07/23/18 11:02 94 20 100 Nasal Cannula 2.0 28 07/23/18 10:52 99 20 99 Nasal Cannula 2.0 28 07/23/18 09:04 106 148/91 07/23/18 09:00 Nasal Cannula 2.0 07/23/18 08:49 106 148/91 07/23/18 08:48 148/91 07/23/18 08:48 148/91 07/23/18 08:47 148/91 07/23/18 08:00 98.2 106 20 148/91 (110) 07/23/18 07:13 103 20 99 Nasal Cannula 2.0 28 07/23/18 07:05 105 20 95 Nasal Cannula 2.0 28 07/23/18 07:02 95 Nasal Cannula 2.0 28 07/23/18 07:02 Nasal Cannula 2.0 28 07/23/18 05:19 98.8 110 20 148/97 (114) 07/23/18 04:00 98.8 110 20 148/97 (114) 07/23/18 03:30 111 20 98 Nasal Cannula 2.0 28 07/23/18 03:20 111 20 95 Nasal Cannula 2.0 28 07/23/18 01:17 98.7 102 20 124/84 (97) 100 07/23/18 00:00 97.5 20 140/89 (106) 98 Intake and Output 07/22/18 07/23/18 19:00 07:00 Intake Total 1120 ml Output Total 3000 ml 4101 ml Balance -3000 ml -2981 ml Intake Oral 400 ml Other 720 ml Output Urine Total 1100 ml Stool Total 1 ml Hemodialysis UF 3000 ml 3000 ml # Voids 5 # Bowel Movements 1 Laboratory Tests 07/23/18 07:27: White Blood Count 4.7L, Red Blood Count 2.87L, Hemoglobin 8.8L, Hematocrit 28.8L , Mean Corpuscular Volume 100H, Mean Corpuscular Hemoglobin 30.8, Mean Corpuscular Hemoglobin Concent 30.6L, Red Cell Distribution Width 13.7, Platelet Count 236, Mean Platelet Volume 6.9, Neutrophils (%) (Auto) 58.1, Lymphocytes (%) (Auto) 14.2L, Monocytes (%) (Auto) 13.9H, Eosinophils (%) (Auto ) 10.8H, Basophils (%) (Auto) 3.0H, Sodium Level 137, Potassium Level 4.5, Chloride Level 99, Carbon Dioxide Level 28, Anion Gap 10, Blood Urea Nitrogen 49H, Creatinine 5.7H, Estimat Glomerular Filtration Rate 12.5, Glucose Level 105 , Uric Acid 4.2, Calcium Level 8.9, Phosphorus Level 3.4, Magnesium Level 1.7L, Total Bilirubin 0.2, Direct Bilirubin < 0.1, Aspartate Amino Transf (AST/SGOT) 19, Alanine Aminotransferase (ALT/SGPT) 23, Alkaline Phosphatase 113, C- Reactive Protein, Quantitative 9.4H, Total Protein 6.4, Albumin 2.7L Height (Feet): 5 Height (Inches): 11.00 Weight (Pounds): 188 Jakob Trent MD Jul 23, 2018 23:44
[2018-07-24] VITALS: BP 145/90
[2018-07-24 04:00] VITALS: BP 130/77
[2018-07-24 06:03] LABS: BASOPHILS % (AUTO) 1.8 % (0.0-2.0); EOSINOPHILS % (AUTO) 12.3 % (0.0-3.0); HEMOGLOBIN 9.3 G/DL (14.2-18.0); LYMPHOCYTES % (AUTO) 19.2 % (20.0-45.0); MEAN CORPUSCULAR VOLUME 100 FL (80-99); MONOCYTES % (AUTO) 14.7 % (1.0-10.0); PLATELET COUNT 232 K/UL (150-450); RED CELL DISTRIBUTION WIDTH 13.4 % (11.6-14.8)
[2018-07-24 06:39] LABS: ALANINE AMINOTRANSFERASE 23 U/L (12-78); ALBUMIN 2.7 G/DL (3.4-5.0); ALBUMIN/GLOBULIN RATIO 0.6 (1.0-2.7); ALKALINE PHOSPHATASE 120 U/L (46-116); ANION GAP 7 mmol/L (5-15); ASPARTATE AMINO TRANSFERASE 24 U/L (15-37); BILIRUBIN,TOTAL 0.2 MG/DL (0.2-1.0); BLOOD UREA NITROGEN 57 mg/dL (7-18); CALCIUM 8.9 MG/DL (8.5-10.1); CARBON DIOXIDE 29 MMOL/L (21-32); CHLORIDE 99 MMOL/L (98-107); CREATININE 6.4 MG/DL (0.55-1.30); PHOSPHORUS 3.6 MG/DL (2.5-4.9); SODIUM 135 MMOL/L (136-145)
[2018-07-24] MEDS: Albuterol/Ipratropium 3ml neb HHN SCH ×3 (07:43→21:37)
[2018-07-24 08:00] VITALS: BP 148/88
--- NOTE | 2018-07-24 08:53 | General Progress Note ---
Assessment/Plan Assessment/Plan (1) Lumbar DDD (2) Lumbar Spondylosis (3) Cocaine Abuse Patient will be continued on [place] as needed. D/w Dr. Rosado and he concurred. Subjective Date patient seen: Jul 24, 2018 Time patient seen: 07:00 - am Allergies: Coded Allergies: No Known Allergies (Unverified , 07/08/18) Subjective REVIEW OF SYSTEMS: Denies rash, fever, chills, sweating, dizziness, drowsiness, blurred vision, or change in weight. No shortness of breath or chest pain. No nausea, vomiting, diarrhea, or blood in the stool or urine. No bowel or bladder incontinence. He is complaining of low back pain. SUBJECTIVE: Patient showing no signs of pain or distress. Is in bed and pain is tolerated on the [place] which he has used 4 doses of in the last 24hrs. Objective Last 24 Hour Vital Signs Date Time Temp Pulse Resp B/P (MAP) Pulse Ox O2 Delivery O2 Flow Rate FiO2 07/24/18 07:43 96 Nasal Cannula 2.0 28 07/24/18 07:43 93 22 99 Nasal Cannula 2.0 28 07/24/18 07:43 Nasal Cannula 2.0 28 07/24/18 07:35 97 22 96 Nasal Cannula 2.0 28 07/24/18 04:00 97.1 95 18 130/77 (94) 97 07/24/18 00:00 97.9 88 17 145/90 (108) 95 07/23/18 21:35 Nasal Cannula 2.0 07/23/18 21:05 92 138/95 07/23/18 20:14 98 20 99 Nasal Cannula 2.0 28 07/23/18 20:09 97 Nasal Cannula 2.0 28 07/23/18 20:09 Nasal Cannula 2.0 28 07/23/18 20:07 96 20 98 Nasal Cannula 2.0 28 07/23/18 20:00 98.4 95 19 133/93 (106) 94 07/23/18 17:50 132/74 07/23/18 16:00 98.4 99 20 142/79 (100) 95 07/23/18 12:00 98.2 93 20 128/82 (97) 95 07/23/18 11:02 94 20 100 Nasal Cannula 2.0 28 07/23/18 10:52 99 20 99 Nasal Cannula 2.0 28 07/23/18 09:04 106 148/91 07/23/18 09:00 Nasal Cannula 2.0 Intake and Output 07/23/18 07/24/18 19:00 07:00 Intake Total 720 ml 480 ml Output Total 300 ml 1050 ml Balance 420 ml -570 ml Intake Oral 720 ml 480 ml Output Urine Total 300 ml 1050 ml # Voids 2 Laboratory Tests 07/24/18 04:55: White Blood Count 4.0L, Red Blood Count 3.00L, Hemoglobin 9.3L, Hematocrit 30.0L , Mean Corpuscular Volume 100H, Mean Corpuscular Hemoglobin 31.1H, Mean Corpuscular Hemoglobin Concent 31.1L, Red Cell Distribution Width 13.4, Platelet Count 232, Mean Platelet Volume 6.8, Neutrophils (%) (Auto) 52.0, Lymphocytes (%) (Auto) 19.2L, Monocytes (%) (Auto) 14.7H, Eosinophils (%) (Auto ) 12.3H, Basophils (%) (Auto) 1.8, Sodium Level 135L, Potassium Level 5.0, Chloride Level 99, Carbon Dioxide Level 29, Anion Gap 7, Blood Urea Nitrogen 57H , Creatinine 6.4H, Estimat Glomerular Filtration Rate 10.9, Glucose Level 78, Calcium Level 8.9, Phosphorus Level 3.6, Total Bilirubin 0.2, Aspartate Amino Transf (AST/SGOT) 24, Alanine Aminotransferase (ALT/SGPT) 23, Alkaline Phosphatase 120H, Pro-B-Type Natriuretic Peptide 9162H, Total Protein 7.1, Albumin 2.7L, Globulin 4.4, Albumin/Globulin Ratio 0.6L Height (Feet): 5 Height (Inches): 11.00 Weight (Pounds): 219 Objective GENERAL: Alert, awake, and oriented. LUNGS: Decreased breath sounds bilaterally. HEART: S1 and S2 regular. ABDOMEN: Soft, nontender. EXTREMITIES: No CCE NEURO: No changes. James Ramirez Jul 24, 2018 08:52
[2018-07-24] MEDS: Lisinopril 10mg tab ORAL SCH ×2 (08:56→17:35)
[2018-07-24] MEDS: Aspirin Baby 81mg ORAL SCH (08:57)
[2018-07-24] MEDS: Imdur 30mg tab ORAL SCH (08:57)
[2018-07-24] MEDS: Metoprolol Tartrate 50mg tab ORAL SCH (08:58)
[2018-07-24] MEDS: HYDROcodone/Acetamin 10/325 tab ORAL PRN ×2 (08:58→17:36)
[2018-07-24] MEDS: Docusate 100mg cap ORAL SCH ×3 (09:00→17:36)
[2018-07-24] MEDS: Heparin 5000 units/ml inj SUBQ SCH ×2 (09:05→20:34)
--- NOTE | 2018-07-24 10:28 | Nephrology Progress Note ---
Assessment/Plan Problem List: (1) ARF (acute renal failure) (2) Cocaine abuse (3) Acute exacerbation of CHF (congestive heart failure) (4) Hypertensive cardiomegaly with heart failure Assessment Acute on Chronic renal failure Anemia Elevated troponin Hypertensive renal and heart disease Cocaine abuse Cardiomyopathy Plan next HD 07/24 aim to UF 3 liters readjust bp meds Dc planning in am after HD increase Neurontin transfuse one unit 07/[address] Moura 2D Echo 55% ej fx BRIDGETT kidneys * Mild fullness of the bilateral renal collecting systems without radiographically appreciable stone and observed bilateral ureteral jets. Findings may be related to mild bladder distention. Consider repeat exam after bladder decompression. monitor renal parameters Avoid nephrotoxics renal diet flomax Subjective ROS Limited/Unobtainable: No Constitutional: Reports: other - occ twitching Objective Objective Last 24 Hour Vital Signs Date Time Temp Pulse Resp B/P (MAP) Pulse Ox O2 Delivery O2 Flow Rate FiO2 07/24/18 09:28 97.1 07/24/18 08:59 98 148/88 07/24/18 08:58 98 148/88 07/24/18 08:57 148/88 07/24/18 08:56 148/88 07/24/18 08:00 97.4 98 21 148/88 (108) 96 07/24/18 07:43 96 Nasal Cannula 2.0 28 07/24/18 07:43 93 22 99 Nasal Cannula 2.0 28 07/24/18 07:43 Nasal Cannula 2.0 28 07/24/18 07:35 97 22 96 Nasal Cannula 2.0 28 07/24/18 04:00 97.1 95 18 130/77 (94) 97 07/24/18 00:00 97.9 88 17 145/90 (108) 95 07/23/18 21:35 Nasal Cannula 2.0 07/23/18 21:05 92 138/95 07/23/18 20:14 98 20 99 Nasal Cannula 2.0 28 07/23/18 20:09 97 Nasal Cannula 2.0 28 07/23/18 20:09 Nasal Cannula 2.0 28 07/23/18 20:07 96 20 98 Nasal Cannula 2.0 28 07/23/18 20:00 98.4 95 19 133/93 (106) 94 07/23/18 17:50 132/74 07/23/18 16:00 98.4 99 20 142/79 (100) 95 07/23/18 12:00 98.2 93 20 128/82 (97) 95 07/23/18 11:02 94 20 100 Nasal Cannula 2.0 28 07/23/18 10:52 99 20 99 Nasal Cannula 2.0 28 Intake and Output 07/23/18 07/24/18 19:00 07:00 Intake Total 720 ml 480 ml Output Total 300 ml 1050 ml Balance 420 ml -570 ml Intake Oral 720 ml 480 ml Output Urine Total 300 ml 1050 ml # Voids 2 Current Medications Medications (Trade) Dose Ordered Sig/Harish Route PRN Reason Start Time Stop Time Status Last Admin Dose Admin Acetaminophen (Tylenol) 650 mg Q4H PRN ORAL Mild Pain/Temp > 100.5 07/17/18 23:15 08/07/18 23:14 07/20/18 09:17 Acetaminophen/ Hydrocodone Bitart ([place] 10/325) 1 tab Q4H PRN ORAL Severe Pain (Pain Scale 7-10) 07/21/18 08:54 07/27/18 08:53 07/24/18 08:58 Albuterol/ Ipratropium (Albuterol/ Ipratropium) 3 ml TIDRT HHN 07/23/18 19:00 07/28/18 18:59 07/24/18 07:43 Amlodipine Besylate (Norvasc) 10 mg DAILY ORAL 07/24/18 09:00 08/18/18 08:59 07/24/18 08:59 Aspirin (ASA) 81 mg DAILY ORAL 07/18/18 09:00 08/08/18 08:59 07/24/18 08:57 Clonidine HCl (Catapres Tab) 0.1 mg Q4H PRN ORAL bp over 165 syst 07/23/18 11:15 08/22/18 11:14 Dextrose (Dextrose 50%) 25 ml Q30M PRN IV Hypoglycemia 07/17/18 21:15 08/07/18 23:14 Dextrose (Dextrose 50%) 50 ml Q30M PRN IV Hypoglycemia 07/17/18 21:15 08/07/18 23:14 Diphenhydramine HCl (Benadryl) 25 mg Q6H PRN ORAL Itching/Pruritis 07/17/18 23:15 08/07/18 23:14 07/24/18 00:24 Docusate Sodium (Colace) 100 mg THREE TIMES A DAY ORAL 07/21/18 18:00 08/20/18 17:59 07/23/18 08:48 Epoetin Juan Pablo (Procrit (for non ESRD use)) 10,000 units FRI-FRI-FRI SUBQ 07/17/18 22:00 08/12/18 21:59 07/22/18 21:00 Gabapentin (Neurontin) 200 mg THREE TIMES A DAY ORAL 07/18/18 18:00 08/17/18 17:59 07/24/18 08:58 Heparin Sodium (Porcine) (Heparin 5000 units/ml) 5,000 units EVERY 12 HOURS SUBQ 07/17/18 22:00 08/14/18 21:59 07/24/18 09:05 Isosorbide Mononitrate (Imdur) 60 mg DAILY ORAL 07/18/18 09:00 08/11/18 08:59 07/24/18 08:57 Lisinopril (Zestril) 10 mg BID ORAL 07/23/18 18:00 08/19/18 08:59 07/24/18 08:56 Metoprolol Tartrate (Lopressor) 50 mg Q12HR ORAL 07/23/18 21:00 08/22/18 20:59 07/24/18 08:58 Pantoprazole (Protonix) 40 mg DAILY ORAL 07/23/18 09:00 08/10/18 21:59 07/24/18 08:58 Polyethylene Glycol (Miralax) 17 gm BEDTIME ORAL 07/21/18 21:00 08/20/18 20:59 07/23/18 21:04 Sevelamer Carbonate (Renvela) 800 mg THREE TIMES A DAY ORAL 07/23/18 13:00 08/08/18 17:59 07/24/18 08:59 Tamsulosin HCl (Flomax) 0.4 mg QHS ORAL 07/18/18 21:00 08/09/18 12:52 07/23/18 21:04 Vancomycin HCl 1 gm/Dextrose 275 ml @ 183.708 mls/hr ONCE IVPB 07/24/18 11:00 07/24/18 13:00 Laboratory Tests 07/24/18 04:55: White Blood Count 4.0L, Red Blood Count 3.00L, Hemoglobin 9.3L, Hematocrit 30.0L , Mean Corpuscular Volume 100H, Mean Corpuscular Hemoglobin 31.1H, Mean Corpuscular Hemoglobin Concent 31.1L, Red Cell Distribution Width 13.4, Platelet Count 232, Mean Platelet Volume 6.8, Neutrophils (%) (Auto) 52.0, Lymphocytes (%) (Auto) 19.2L, Monocytes (%) (Auto) 14.7H, Eosinophils (%) (Auto ) 12.3H, Basophils (%) (Auto) 1.8, Sodium Level 135L, Potassium Level 5.0, Chloride Level 99, Carbon Dioxide Level 29, Anion Gap 7, Blood Urea Nitrogen 57H , Creatinine 6.4H, Estimat Glomerular Filtration Rate 10.9, Glucose Level 78, Calcium Level 8.9, Phosphorus Level 3.6, Total Bilirubin 0.2, Aspartate Amino Transf (AST/SGOT) 24, Alanine Aminotransferase (ALT/SGPT) 23, Alkaline Phosphatase 120H, Pro-B-Type Natriuretic Peptide 9162H, Total Protein 7.1, Albumin 2.7L, Globulin 4.4, Albumin/Globulin Ratio 0.6L Height (Feet): 5 Height (Inches): 11.00 Weight (Pounds): 219 General Appearance: no apparent distress Cardiovascular: normal rate Respiratory/Chest: chest wall non-tender Abdomen: soft Extremities: other - 2+ edema Objective no change Richar Cm MD Jul 24, 2018 10:28
[2018-07-24] MEDS ORDERED: Vancomycin 1 GM in D5W 275 ML IVPB SCH (11:00)
[2018-07-24 12:00] VITALS: BP 145/79
--- NOTE | 2018-07-24 13:47 | GI Progress Note ---
Assessment/Plan Problems: (1) Macrocytic anemia ICD Codes: D53.9 - Nutritional anemia, unspecified SNOMED: 24891513 (2) Iron deficiency ICD Codes: E61.1 - Iron deficiency SNOMED: 85046510 (3) Constipation ICD Codes: K59.00 - Constipation, unspecified SNOMED: 08385826 (4) Cocaine abuse ICD Codes: F14.10 - Cocaine abuse, uncomplicated SNOMED: 11040571 (5) Pancreatitis ICD Codes: K85.90 - Acute pancreatitis without necrosis or infection, unspecified SNOMED: 24155019 Status: unchanged Status Narrative Discussed with Dr. Shea. Assessment/Plan Pancreatitis now resolved Hepatitis panel negative history of hernia repair Patient will require cardiac clearance prior to any GI procedures OB stool r/o GI bleed monitor H&H, prn transfusions bowel regime ppi venofer renal diet fu labs Outpatient GI procedures The patient was seen and examined at bedside and all new and available data was reviewed in the patients chart. I agree with the above findings, impression and plan. (Patient seen earlier today. Signature stamp does not reflect patient encounter time.). - Nikolas Shea MD Subjective Subjective Stated he had a bowel movement yesterday has complaint of lower abdominal pain, believes there is problem with his hernia mesh Objective Last 24 Hour Vital Signs Date Time Temp Pulse Resp B/P (MAP) Pulse Ox O2 Delivery O2 Flow Rate FiO2 07/24/18 09:28 97.1 07/24/18 09:00 Nasal Cannula 2.0 07/24/18 08:59 98 148/88 07/24/18 08:58 98 148/88 07/24/18 08:57 148/88 07/24/18 08:56 148/88 07/24/18 08:00 97.4 98 21 148/88 (108) 96 07/24/18 07:43 96 Nasal Cannula 2.0 28 07/24/18 07:43 93 22 99 Nasal Cannula 2.0 28 07/24/18 07:43 Nasal Cannula 2.0 28 07/24/18 07:35 97 22 96 Nasal Cannula 2.0 28 07/24/18 04:00 97.1 95 18 130/77 (94) 97 07/24/18 00:00 97.9 88 17 145/90 (108) 95 07/23/18 21:35 Nasal Cannula 2.0 1/10/19 21:05 92 138/95 07/23/18 20:14 98 20 99 Nasal Cannula 2.0 28 07/23/18 20:09 97 Nasal Cannula 2.0 28 07/23/18 20:09 Nasal Cannula 2.0 28 07/23/18 20:07 96 20 98 Nasal Cannula 2.0 28 07/23/18 20:00 98.4 95 19 133/93 (106) 94 07/23/18 17:50 132/74 07/23/18 16:00 98.4 99 20 142/79 (100) 95 Intake and Output 07/23/18 07/24/18 18:59 06:59 Intake Total 720 ml 480 ml Output Total 300 ml 1050 ml Balance 420 ml -570 ml Intake Oral 720 ml 480 ml Output Urine Total 300 ml 1050 ml # Voids 2 Laboratory Tests Test 07/24/18 04:55 White Blood Count 4.0 K/UL (4.8-10.8) L Red Blood Count 3.00 M/UL (4.70-6.10) L Hemoglobin 9.3 G/DL (14.2-18.0) L Hematocrit 30.0 % (42.0-52.0) L Mean Corpuscular Volume 100 FL (80-99) H Mean Corpuscular Hemoglobin 31.1 PG (27.0-31.0) H Mean Corpuscular Hemoglobin Concent 31.1 G/DL (32.0-36.0) L Red Cell Distribution Width 13.4 % (11.6-14.8) Platelet Count 232 K/UL (150-450) Mean Platelet Volume 6.8 FL (6.5-10.1) Neutrophils (%) (Auto) 52.0 % (45.0-75.0) Lymphocytes (%) (Auto) 19.2 % (20.0-45.0) L Monocytes (%) (Auto) 14.7 % (1.0-10.0) H Eosinophils (%) (Auto) 12.3 % (0.0-3.0) H Basophils (%) (Auto) 1.8 % (0.0-2.0) Sodium Level 135 MMOL/L (136-145) L Potassium Level 5.0 MMOL/L (3.5-5.1) Chloride Level 99 MMOL/L (98-107) Carbon Dioxide Level 29 MMOL/L (21-32) Anion Gap 7 mmol/L (5-15) Blood Urea Nitrogen 57 mg/dL (7-18) H Creatinine 6.4 MG/DL (0.55-1.30) H Estimat Glomerular Filtration Rate 10.9 mL/min (>60) Glucose Level 78 MG/DL (74-106) Calcium Level 8.9 MG/DL (8.5-10.1) Phosphorus Level 3.6 MG/DL (2.5-4.9) Total Bilirubin 0.2 MG/DL (0.2-1.0) Aspartate Amino Transf (AST/SGOT) 24 U/L (15-37) Alanine Aminotransferase (ALT/SGPT) 23 U/L (12-78) Alkaline Phosphatase 120 U/L (46-116) H Pro-B-Type Natriuretic Peptide 9162 pg/mL (0-125) H Total Protein 7.1 G/DL (6.4-8.2) Albumin 2.7 G/DL (3.4-5.0) L Globulin 4.4 g/dL Albumin/Globulin Ratio 0.6 (1.0-2.7) L Height (Feet): 5 Height (Inches): 11.00 Weight (Pounds): 219 General Appearance: WD/WN, no apparent distress, alert Cardiovascular: normal rate Respiratory/Chest: normal breath sounds, no respiratory distress Abdominal Exam: normal bowel sounds, non tender, soft Extremities: non-tender Daja Murdock NP Jul 24, 2018 13:47
--- NOTE | 2018-07-24 14:35 | General Progress Note ---
Assessment/Plan Assessment/Plan # Anemia of chronic disease, multifactorial, grace on ckd --> Anemia w/u has been reviewed, no eric noted --> No evidence of hemolysis is noted, peripheral smear is wnl --> Hgb goal >7. Transfuse prn. --> continue on epo sq # Congestive heart failure with acute decompensated heart failure. --> per cards management --> In tele unit --> on diuresis # Abnormal renal function, likely cardiorenal syndrome. --> Nephrology is following appreciate recs --> BRIDGETT kidneys with minimal fullness, seen by renal, echogenicity is wnl # History of cocaine abuse with current positive tox screen. --> recommend cessation # Hypertension with hypertensive urgency. --> On Norvasc 5 mg bid, Hydralazine,Imdur and Clonidine patch. --> Avoid beta-blockers for active cocaine # Acute coronary syndrome/non-ST elevation myocardial infarction. --> per cards The date and time note entered does not reflect time and date patient was seen. GREATLY APPRECIATE CONSULTATION. Subjective Constitutional: Denies: no symptoms, chills, diaphoresis, fever, malaise, weakness, other HEENT: Denies: no symptoms, eye pain, blurred vision, tearing, double vision, ear pain, ear discharge, nose pain, nose congestion, throat pain, throat swelling, mouth pain, mouth swelling, other Cardiovascular: Denies: no symptoms, chest pain, edema, irregular heart rate, lightheadedness, palpitations, syncope, other Respiratory: Denies: no symptoms, cough, orthopnea, shortness of breath, SOB with excertion, SOB at rest, sputum, stridor, wheezing, other Gastrointestinal/Abdominal: Denies: no symptoms, abdomen distended, abdominal pain, black stools, tarry stools, blood in stool, constipated, diarrhea, difficulty swallowing, nausea, poor appetite, poor fluid intake, rectal bleeding , vomiting, other Genitourinary: Denies: no symptoms, burning, discharge, frequency, flank pain, hematuria, incontinence, pain, urgency, other Neurologic/Psychiatric: Denies: no symptoms, anxiety, depressed, emotional problems, headache, numbness, paresthesia, pre-existing deficit, seizure, tingling, tremors, weakness, other Endocrine: Denies: no symptoms, excessive sweating, flushing, intolerance to cold, intolerance to heat, increased hunger, increased thirst, increased urine, unexplained weight gain, unexplained weight loss, other Allergies: Coded Allergies: No Known Allergies (Unverified , 07/08/18) Subjective 07/12: no events, cr trending, h/h stable, on epo 07/14: transfuse one unit 07/13, diruresed, refused mendez, seen by cards, bp better 07/15 : Pt is seen in the room, awake and alert, S/P blood transfusion, refusing HD 07/16 : Pt is awake and resting in bed. waiting on sister to make HD decision, no events 07/17 Pt is seen in the room,awake and alert, appears to be agreeable for placement of dialysis cath and dialysis . 07/18: Pt is seen in the room, No CP or SOB. Had HD today. 07/19: Pt is awake and resting in bed. Denies pain, SOB or fevers and chills. Has HD scheduled for 07/20/18, currently stable. 07/20: received hand held nebulizer, no other events, no f.c 07/21 : Pt seen by bedside, continues on breathing treatment, HD 07/22/18, no events 07/22: pending snf placement and outpatient hd 07/23: awake and resting in bed. no acute events, waiting placement and outpatient HD 07/24: no major events, waiting placement, seen by gi, recs reviewed, no complaints, on epo Objective Last 24 Hour Vital Signs Date Time Temp Pulse Resp B/P (MAP) Pulse Ox O2 Delivery O2 Flow Rate FiO2 07/24/18 13:30 Nasal Cannula 2.0 28 07/24/18 13:30 Nasal Cannula 2.0 28 07/24/18 09:28 97.1 07/24/18 09:00 Nasal Cannula 2.0 07/24/18 08:59 98 148/88 07/24/18 08:58 98 148/88 07/24/18 08:57 148/88 07/24/18 08:56 148/88 07/24/18 08:00 97.4 98 21 148/88 (108) 96 07/24/18 07:43 96 Nasal Cannula 2.0 28 07/24/18 07:43 93 22 99 Nasal Cannula 2.0 28 07/24/18 07:43 Nasal Cannula 2.0 28 07/24/18 07:35 97 22 96 Nasal Cannula 2.0 28 07/24/18 04:00 97.1 95 18 130/77 (94) 97 07/24/18 00:00 97.9 88 17 145/90 (108) 95 07/23/18 21:35 Nasal Cannula 2.0 07/23/18 21:05 92 138/95 07/23/18 20:14 98 20 99 Nasal Cannula 2.0 28 07/23/18 20:09 97 Nasal Cannula 2.0 28 07/23/18 20:09 Nasal Cannula 2.0 28 07/23/18 20:07 96 20 98 Nasal Cannula 2.0 28 07/23/18 20:00 98.4 95 19 133/93 (106) 94 07/23/18 17:50 132/74 07/23/18 16:00 98.4 99 20 142/79 (100) 95 Intake and Output 07/23/18 07/24/18 18:59 06:59 Intake Total 720 ml 480 ml Output Total 300 ml 1050 ml Balance 420 ml -570 ml Intake Oral 720 ml 480 ml Output Urine Total 300 ml 1050 ml # Voids 2 Laboratory Tests 07/24/18 04:55: White Blood Count 4.0L, Red Blood Count 3.00L, Hemoglobin 9.3L, Hematocrit 30.0L , Mean Corpuscular Volume 100H, Mean Corpuscular Hemoglobin 31.1H, Mean Corpuscular Hemoglobin Concent 31.1L, Red Cell Distribution Width 13.4, Platelet Count 232, Mean Platelet Volume 6.8, Neutrophils (%) (Auto) 52.0, Lymphocytes (%) (Auto) 19.2L, Monocytes (%) (Auto) 14.7H, Eosinophils (%) (Auto ) 12.3H, Basophils (%) (Auto) 1.8, Sodium Level 135L, Potassium Level 5.0, Chloride Level 99, Carbon Dioxide Level 29, Anion Gap 7, Blood Urea Nitrogen 57H , Creatinine 6.4H, Estimat Glomerular Filtration Rate 10.9, Glucose Level 78, Calcium Level 8.9, Phosphorus Level 3.6, Total Bilirubin 0.2, Aspartate Amino Transf (AST/SGOT) 24, Alanine Aminotransferase (ALT/SGPT) 23, Alkaline Phosphatase 120H, Pro-B-Type Natriuretic Peptide 9162H, Total Protein 7.1, Albumin 2.7L, Globulin 4.4, Albumin/Globulin Ratio 0.6L Height (Feet): 5 Height (Inches): 11.00 Weight (Pounds): 219 Objective Physical Exam General Appearance: A+O x2 NAD HEENT: normocephalic, atraumatic Neck: non-tender, normal alignment Respiratory/Chest: chest wall non-tender, lungs clear Cardiovascular/Chest: normal peripheral pulses, normal rate Abdomen: normal bowel sounds, non tender Extremities: normal range of motion Shane Mary MD Jul 24, 2018 14:35
--- NOTE | 2018-07-24 14:38 | Pulmonology Progress Note ---
Assessment/Plan Problems: (1) Epistaxis (2) Acute exacerbation of CHF (congestive heart failure) (3) Hypertensive cardiomegaly with heart failure (4) ACS (acute coronary syndrome) (5) Cocaine abuse (6) ARF (acute renal failure) (7) DDD (degenerative disc disease) Assessment/Plan ASSESSMENT: The patient is a 58-year-old male with history of cocaine and tobacco abuse, congestive heart failure, and renal impairment, presenting with decompensated heart failure and abnormal renal function with marked uremia. He has previously been told he needs dialysis. He is now being admitted for acute coronary syndrome and likely need for dialysis. PROBLEM LIST: 1. Congestive heart failure with acute decompensated heart failure. 2. Abnormal renal function, likely cardiorenal syndrome. 3. History of cocaine abuse with current positive tox screen. 4. Anemia. 5. Hypertension with hypertensive urgency. 6. Acute coronary syndrome/non-ST elevation myocardial infarction. 7. Acute on chronic LBP with radiculopathy ---> DDD/SS TREATMENT PLAN: -HD per renal, UF as able -Control BP -F/U cards and renal recs -Cardiac diet -F/U heme recs -F/U GI recs ---> plan for OP EGD/colo -DVT Px: hep SQ -Pain control/supportive care -F/U pain management recs -Appreciate psych eval, has capacity, F/U recs -SW assistance in placement Subjective Allergies: Coded Allergies: No Known Allergies (Unverified , 07/08/18) Subjective AFVSS stable O2 needs Edema better, S/P HD -6L No change in chronic back pain No SOB, no CP, no F/C Objective Last 24 Hour Vital Signs Date Time Temp Pulse Resp B/P (MAP) Pulse Ox O2 Delivery O2 Flow Rate FiO2 07/24/18 13:30 Nasal Cannula 2.0 28 07/24/18 13:30 Nasal Cannula 2.0 28 07/24/18 09:28 97.1 07/24/18 09:00 Nasal Cannula 2.0 07/24/18 08:59 98 148/88 07/24/18 08:58 98 148/88 07/24/18 08:57 148/88 07/24/18 08:56 148/88 07/24/18 08:00 97.4 98 21 148/88 (108) 96 07/24/18 07:43 96 Nasal Cannula 2.0 28 07/24/18 07:43 93 22 99 Nasal Cannula 2.0 28 07/24/18 07:43 Nasal Cannula 2.0 28 07/24/18 07:35 97 22 96 Nasal Cannula 2.0 28 07/24/18 04:00 97.1 95 18 130/77 (94) 97 07/24/18 00:00 97.9 88 17 145/90 (108) 95 07/23/18 21:35 Nasal Cannula 2.0 07/23/18 21:05 92 138/95 07/23/18 20:14 98 20 99 Nasal Cannula 2.0 28 07/23/18 20:09 97 Nasal Cannula 2.0 28 07/23/18 20:09 Nasal Cannula 2.0 28 07/23/18 20:07 96 20 98 Nasal Cannula 2.0 28 07/23/18 20:00 98.4 95 19 133/93 (106) 94 07/23/18 17:50 132/74 07/23/18 16:00 98.4 99 20 142/79 (100) 95 Intake and Output 07/23/18 07/24/18 18:59 06:59 Intake Total 720 ml 480 ml Output Total 300 ml 1050 ml Balance 420 ml -570 ml Intake Oral 720 ml 480 ml Output Urine Total 300 ml 1050 ml # Voids 2 General Appearance: no acute distress HEENT: normocephalic, atraumatic, anicteric, mucous membranes moist Respiratory/Chest: chest wall non-tender, lungs clear, normal breath sounds, no respiratory distress, no accessory muscle use Cardiovascular: normal peripheral pulses, normal rate, regular rhythm Abdomen: normal bowel sounds, soft, non tender, no organomegaly, non distended , no mass Extremities: no cyanosis, no clubbing, other - trace edema Laboratory Tests 07/24/18 04:55: White Blood Count 4.0L, Red Blood Count 3.00L, Hemoglobin 9.3L, Hematocrit 30.0L , Mean Corpuscular Volume 100H, Mean Corpuscular Hemoglobin 31.1H, Mean Corpuscular Hemoglobin Concent 31.1L, Red Cell Distribution Width 13.4, Platelet Count 232, Mean Platelet Volume 6.8, Neutrophils (%) (Auto) 52.0, Lymphocytes (%) (Auto) 19.2L, Monocytes (%) (Auto) 14.7H, Eosinophils (%) (Auto ) 12.3H, Basophils (%) (Auto) 1.8, Sodium Level 135L, Potassium Level 5.0, Chloride Level 99, Carbon Dioxide Level 29, Anion Gap 7, Blood Urea Nitrogen 57H , Creatinine 6.4H, Estimat Glomerular Filtration Rate 10.9, Glucose Level 78, Calcium Level 8.9, Phosphorus Level 3.6, Total Bilirubin 0.2, Aspartate Amino Transf (AST/SGOT) 24, Alanine Aminotransferase (ALT/SGPT) 23, Alkaline Phosphatase 120H, Pro-B-Type Natriuretic Peptide 9162H, Total Protein 7.1, Albumin 2.7L, Globulin 4.4, Albumin/Globulin Ratio 0.6L Current Medications Medications (Trade) Dose Ordered Sig/Harish Route PRN Reason Start Time Stop Time Status Last Admin Dose Admin Acetaminophen (Tylenol) 650 mg Q4H PRN ORAL Mild Pain/Temp > 100.5 07/17/18 23:15 08/07/18 23:14 07/20/18 09:17 Acetaminophen/ Hydrocodone Bitart ([place] 10/325) 1 tab Q4H PRN ORAL Severe Pain (Pain Scale 7-10) 07/21/18 08:54 07/27/18 08:53 07/24/18 08:58 Albuterol/ Ipratropium (Albuterol/ Ipratropium) 3 ml TIDRT HHN 07/23/18 19:00 07/28/18 18:59 07/24/18 07:43 Amlodipine Besylate (Norvasc) 10 mg DAILY ORAL 07/24/18 09:00 08/18/18 08:59 07/24/18 08:59 Aspirin (ASA) 81 mg DAILY ORAL 07/18/18 09:00 08/08/18 08:59 07/24/18 08:57 Clonidine HCl (Catapres Tab) 0.1 mg Q4H PRN ORAL bp over 165 syst 07/23/18 11:15 08/22/18 11:14 Dextrose (Dextrose 50%) 25 ml Q30M PRN IV Hypoglycemia 07/17/18 21:15 08/07/18 23:14 Dextrose (Dextrose 50%) 50 ml Q30M PRN IV Hypoglycemia 07/17/18 21:15 08/07/18 23:14 Diphenhydramine HCl (Benadryl) 25 mg Q6H PRN ORAL Itching/Pruritis 07/17/18 23:15 08/07/18 23:14 07/24/18 00:24 Docusate Sodium (Colace) 100 mg THREE TIMES A DAY ORAL 07/21/18 18:00 08/20/18 17:59 07/23/18 08:48 Epoetin Juan Pablo (Procrit (for non ESRD use)) 10,000 units FRI-FRI-FRI SUBQ 07/17/18 22:00 08/12/18 21:59 07/22/18 21:00 Gabapentin (Neurontin) 300 mg THREE TIMES A DAY ORAL 07/24/18 13:00 08/17/18 17:59 Heparin Sodium (Porcine) (Heparin 5000 units/ml) 5,000 units EVERY 12 HOURS SUBQ 07/17/18 22:00 08/14/18 21:59 07/24/18 09:05 Isosorbide Mononitrate (Imdur) 60 mg DAILY ORAL 07/18/18 09:00 08/11/18 08:59 07/24/18 08:57 Lisinopril (Zestril) 10 mg BID ORAL 07/23/18 18:00 08/19/18 08:59 07/24/18 08:56 Metoprolol Tartrate (Lopressor) 100 mg Q12HR ORAL 07/24/18 21:00 08/22/18 20:59 Pantoprazole (Protonix) 40 mg DAILY ORAL 07/23/18 09:00 08/10/18 21:59 07/24/18 08:58 Polyethylene Glycol (Miralax) 17 gm BEDTIME ORAL 07/21/18 21:00 08/20/18 20:59 07/23/18 21:04 Sevelamer Carbonate (Renvela) 800 mg THREE TIMES A DAY ORAL 07/23/18 13:00 08/08/18 17:59 07/24/18 08:59 Tamsulosin HCl (Flomax) 0.4 mg QHS ORAL 07/18/18 21:00 08/09/18 12:52 07/23/18 21:04 Edgard Webb MD Jul 24, 2018 14:38
--- NOTE | 2018-07-24 15:15 | Cardiac Electrophysiology PN ---
Assessment/Plan Assessment/Plan 1. Troponin leak in the setting of active cocaine use and renal failure. Levels are flat at 0.2, 0.2 and 0.2. Avoid beta-pablo in view of active cocaine use. On aspirin and Lipitor EF 45%. No CP 2. Hypertension. On Norvasc 10 daily, Imdur 60, Lisinopril 10 daily, Clonidine 0.1 tid and HD per Dr Cm 3. End-stage renal disease, has not been started on hemodialysis. Cr 8.[address] Cm 4. Substance use with cocaine. Avoid beta-blockers. 5. Recent pneumonia. 6. Congestive heart failure. Echocardiogram EF 45% 7. Severe anemia s/p PRBCs . DW RN Subjective Subjective No CP or SOB. Getting HD Objective Last 24 Hour Vital Signs Date Time Temp Pulse Resp B/P (MAP) Pulse Ox O2 Delivery O2 Flow Rate FiO2 07/24/18 14:47 Nasal Cannula 07/24/18 14:45 Nasal Cannula 07/24/18 13:30 Nasal Cannula 2.0 28 07/24/18 13:30 Nasal Cannula 2.0 28 07/24/18 09:28 97.1 07/24/18 09:00 Nasal Cannula 2.0 07/24/18 08:59 98 148/88 07/24/18 08:58 98 148/88 07/24/18 08:57 148/88 07/24/18 08:56 148/88 07/24/18 08:00 97.4 98 21 148/88 (108) 96 07/24/18 07:43 96 Nasal Cannula 2.0 28 07/24/18 07:43 93 22 99 Nasal Cannula 2.0 28 07/24/18 07:43 Nasal Cannula 2.0 28 07/24/18 07:35 97 22 96 Nasal Cannula 2.0 28 07/24/18 04:00 97.1 95 18 130/77 (94) 97 07/24/18 00:00 97.9 88 17 145/90 (108) 95 07/23/18 21:35 Nasal Cannula 2.0 07/23/18 21:05 92 138/95 07/23/18 20:14 98 20 99 Nasal Cannula 2.0 28 07/23/18 20:09 97 Nasal Cannula 2.0 28 1/10/19 20:09 Nasal Cannula 2.0 28 07/23/18 20:07 96 20 98 Nasal Cannula 2.0 28 07/23/18 20:00 98.4 95 19 133/93 (106) 94 07/23/18 17:50 132/74 07/23/18 16:00 98.4 99 20 142/79 (100) 95 Intake and Output 07/23/18 07/24/18 19:00 07:00 Intake Total 720 ml 480 ml Output Total 300 ml 1050 ml Balance 420 ml -570 ml Intake Oral 720 ml 480 ml Output Urine Total 300 ml 1050 ml # Voids 2 Laboratory Tests Test 07/24/18 04:55 White Blood Count 4.0 K/UL (4.8-10.8) L Red Blood Count 3.00 M/UL (4.70-6.10) L Hemoglobin 9.3 G/DL (14.2-18.0) L Hematocrit 30.0 % (42.0-52.0) L Mean Corpuscular Volume 100 FL (80-99) H Mean Corpuscular Hemoglobin 31.1 PG (27.0-31.0) H Mean Corpuscular Hemoglobin Concent 31.1 G/DL (32.0-36.0) L Red Cell Distribution Width 13.4 % (11.6-14.8) Platelet Count 232 K/UL (150-450) Mean Platelet Volume 6.8 FL (6.5-10.1) Neutrophils (%) (Auto) 52.0 % (45.0-75.0) Lymphocytes (%) (Auto) 19.2 % (20.0-45.0) L Monocytes (%) (Auto) 14.7 % (1.0-10.0) H Eosinophils (%) (Auto) 12.3 % (0.0-3.0) H Basophils (%) (Auto) 1.8 % (0.0-2.0) Sodium Level 135 MMOL/L (136-145) L Potassium Level 5.0 MMOL/L (3.5-5.1) Chloride Level 99 MMOL/L (98-107) Carbon Dioxide Level 29 MMOL/L (21-32) Anion Gap 7 mmol/L (5-15) Blood Urea Nitrogen 57 mg/dL (7-18) H Creatinine 6.4 MG/DL (0.55-1.30) H Estimat Glomerular Filtration Rate 10.9 mL/min (>60) Glucose Level 78 MG/DL (74-106) Calcium Level 8.9 MG/DL (8.5-10.1) Phosphorus Level 3.6 MG/DL (2.5-4.9) Total Bilirubin 0.2 MG/DL (0.2-1.0) Aspartate Amino Transf (AST/SGOT) 24 U/L (15-37) Alanine Aminotransferase (ALT/SGPT) 23 U/L (12-78) Alkaline Phosphatase 120 U/L (46-116) H Pro-B-Type Natriuretic Peptide 9162 pg/mL (0-125) H Total Protein 7.1 G/DL (6.4-8.2) Albumin 2.7 G/DL (3.4-5.0) L Globulin 4.4 g/dL Albumin/Globulin Ratio 0.6 (1.0-2.7) L Objective HEAD AND NECK: No JVD. LUNGS: Decreased breath sounds. Right IJ PermCath in place CARDIOVASCULAR: Regular S1 and S2 with no gallop or murmur. ABDOMEN: Soft. EXTREMITIES: 1 plus pitting edema. German Gray MD Jul 24, 2018 15:15
--- NOTE | 2018-07-24 15:28 | General Progress Note ---
Assessment/Plan Problem List: (1) Cocaine abuse ICD Codes: F14.10 - Cocaine abuse, uncomplicated SNOMED: 28779277 (2) MDD (major depressive disorder) ICD Codes: F32.9 - Major depressive disorder, single episode, unspecified SNOMED: 426186201 (3) Cluster B personality disorder ICD Codes: F60.9 - Personality disorder, unspecified SNOMED: 8501267 Status: stable, progressing Assessment/Plan the pt has capacity to refuse meds the pt may leave ama the pt is reluctant to take psych meds the pt was provided with ro/st/educate about the compliance Subjective Neurologic/Psychiatric: Reports: anxiety, depressed, emotional problems Allergies: Coded Allergies: No Known Allergies (Unverified , 07/08/18) Subjective the pt was pleasant and smiling. in denial about the substance use and mental illness Objective Last 24 Hour Vital Signs Date Time Temp Pulse Resp B/P (MAP) Pulse Ox O2 Delivery O2 Flow Rate FiO2 07/24/18 14:47 Nasal Cannula 07/24/18 14:45 Nasal Cannula 07/24/18 13:30 Nasal Cannula 2.0 28 07/24/18 13:30 Nasal Cannula 2.0 28 07/24/18 09:28 97.1 07/24/18 09:00 Nasal Cannula 2.0 07/24/18 08:59 98 148/88 07/24/18 08:58 98 148/88 07/24/18 08:57 148/88 07/24/18 08:56 148/88 07/24/18 08:00 97.4 98 21 148/88 (108) 96 07/24/18 07:43 96 Nasal Cannula 2.0 28 07/24/18 07:43 93 22 99 Nasal Cannula 2.0 28 07/24/18 07:43 Nasal Cannula 2.0 28 07/24/18 07:35 97 22 96 Nasal Cannula 2.0 28 07/24/18 04:00 97.1 95 18 130/77 (94) 97 07/24/18 00:00 97.9 88 17 145/90 (108) 95 07/23/18 21:35 Nasal Cannula 2.0 07/23/18 21:05 92 138/95 07/23/18 20:14 98 20 99 Nasal Cannula 2.0 28 07/23/18 20:09 97 Nasal Cannula 2.0 28 07/23/18 20:09 Nasal Cannula 2.0 28 07/23/18 20:07 96 20 98 Nasal Cannula 2.0 28 07/23/18 20:00 98.4 95 19 133/93 (106) 94 07/23/18 17:50 132/74 07/23/18 16:00 98.4 99 20 142/79 (100) 95 Intake and Output 07/23/18 07/24/18 18:59 06:59 Intake Total 720 ml 480 ml Output Total 300 ml 1050 ml Balance 420 ml -570 ml Intake Oral 720 ml 480 ml Output Urine Total 300 ml 1050 ml # Voids 2 Laboratory Tests 07/24/18 04:55: White Blood Count 4.0L, Red Blood Count 3.00L, Hemoglobin 9.3L, Hematocrit 30.0L , Mean Corpuscular Volume 100H, Mean Corpuscular Hemoglobin 31.1H, Mean Corpuscular Hemoglobin Concent 31.1L, Red Cell Distribution Width 13.4, Platelet Count 232, Mean Platelet Volume 6.8, Neutrophils (%) (Auto) 52.0, Lymphocytes (%) (Auto) 19.2L, Monocytes (%) (Auto) 14.7H, Eosinophils (%) (Auto ) 12.3H, Basophils (%) (Auto) 1.8, Sodium Level 135L, Potassium Level 5.0, Chloride Level 99, Carbon Dioxide Level 29, Anion Gap 7, Blood Urea Nitrogen 57H , Creatinine 6.4H, Estimat Glomerular Filtration Rate 10.9, Glucose Level 78, Calcium Level 8.9, Phosphorus Level 3.6, Total Bilirubin 0.2, Aspartate Amino Transf (AST/SGOT) 24, Alanine Aminotransferase (ALT/SGPT) 23, Alkaline Phosphatase 120H, Pro-B-Type Natriuretic Peptide 9162H, Total Protein 7.1, Albumin 2.7L, Globulin 4.4, Albumin/Globulin Ratio 0.6L Height (Feet): 5 Height (Inches): 11.00 Weight (Pounds): 219 General Appearance: alert Neurologic: oriented x 3, responsive, depressed affect Jakob Trent MD Jul 24, 2018 15:28
[2018-07-24 16:00] VITALS: BP 144/82
[2018-07-24 20:00] VITALS: BP 142/86
[2018-07-24] MEDS: Tamsulosin 0.4mg cap ORAL SCH (20:33)
[2018-07-24] MEDS: Miralax 17gm pkt ORAL SCH (20:34)
[2018-07-24] MEDS: Epogen (for non ESRD use) SUBQ SCH (20:39)
[2018-07-25] VITALS: BP 118/79
[2018-07-25 04:00] VITALS: BP 130/84
[2018-07-25] MEDS: Albuterol/Ipratropium 3ml neb HHN SCH ×3 (07:41→19:57)
[2018-07-25 08:00] VITALS: BP 143/92
[2018-07-25] MEDS: Lisinopril 10mg tab ORAL SCH (08:25)
[2018-07-25] MEDS: Imdur 30mg tab ORAL SCH (08:26)
[2018-07-25] MEDS: Docusate 100mg cap ORAL SCH ×3 (08:27→17:29)
[2018-07-25] MEDS: Aspirin Baby 81mg ORAL SCH (08:27)
[2018-07-25] MEDS: Heparin 5000 units/ml inj SUBQ SCH ×2 (08:34→21:40)
[2018-07-25 08:37] LABS: BASOPHILS % (AUTO) 1.3 % (0.0-2.0); EOSINOPHILS % (AUTO) 10.9 % (0.0-3.0); HEMATOCRIT 28.8 % (42.0-52.0); HEMOGLOBIN 8.9 G/DL (14.2-18.0); LYMPHOCYTES % (AUTO) 16.4 % (20.0-45.0); MEAN CORPUSCULAR VOLUME 102 FL (80-99); MONOCYTES % (AUTO) 13.4 % (1.0-10.0); PLATELET COUNT 225 K/UL (150-450); RED BLOOD COUNT 2.83 M/UL (4.70-6.10); RED CELL DISTRIBUTION WIDTH 13.8 % (11.6-14.8); WHITE BLOOD COUNT 5.4 K/UL (4.8-10.8)
[2018-07-25 09:04] LABS: ANION GAP 9 mmol/L (5-15); BLOOD UREA NITROGEN 45 mg/dL (7-18); CALCIUM 8.8 MG/DL (8.5-10.1); CARBON DIOXIDE 27 MMOL/L (21-32); CHLORIDE 100 MMOL/L (98-107); CREATININE 5.4 MG/DL (0.55-1.30); POTASSIUM 4.9 MMOL/L (3.5-5.1); SODIUM 135 MMOL/L (136-145)
[2018-07-25 12:09] VITALS: BP 144/74
[2018-07-25] MEDS ORDERED: dilTIAZem HCl CD 120mg cap ORAL SCH (12:10)
--- NOTE | 2018-07-25 12:12 | Nephrology Progress Note ---
Assessment/Plan Problem List: (1) ARF (acute renal failure) (2) Cocaine abuse (3) Acute exacerbation of CHF (congestive heart failure) (4) Hypertensive cardiomegaly with heart failure Assessment Acute on Chronic renal failure Anemia Elevated troponin Hypertensive renal and heart disease Cocaine abuse Cardiomyopathy Plan next HD 07/26 aim to UF 3 liters readjust bp meds Dc planning increase Neurontin transfuse one unit 07/[address] Moura 2D Echo 55% ej fx BRIDGETT kidneys * Mild fullness of the bilateral renal collecting systems without radiographically appreciable stone and observed bilateral ureteral jets. Findings may be related to mild bladder distention. Consider repeat exam after bladder decompression. monitor renal parameters Avoid nephrotoxics renal diet flomax Subjective ROS Limited/Unobtainable: No Constitutional: Reports: malaise Objective Objective Last 24 Hour Vital Signs Date Time Temp Pulse Resp B/P (MAP) Pulse Ox O2 Delivery O2 Flow Rate FiO2 07/25/18 12:09 98.2 89 20 144/74 (97) 96 07/25/18 08:27 93 143/92 07/25/18 08:26 93 143/92 07/25/18 08:26 143/92 07/25/18 08:25 143/92 07/25/18 08:00 97.7 93 20 143/92 (109) 92 07/25/18 07:49 94 20 99 Nasal Cannula 2.0 28 07/25/18 07:41 92 18 97 Nasal Cannula 2.0 28 07/25/18 07:41 97 Nasal Cannula 2.0 28 07/25/18 07:41 Nasal Cannula 2.0 28 07/25/18 04:00 97.6 90 20 130/84 (99) 96 07/25/18 00:14 98.6 07/25/18 00:00 97.0 88 20 118/79 (92) 96 07/24/18 21:00 Nasal Cannula 2.0 07/24/18 20:33 97 155/93 07/24/18 20:00 98.6 103 20 142/86 (104) 100 07/24/18 19:25 92 20 99 Nasal Cannula 2.0 28 07/24/18 19:15 95 Nasal Cannula 2.0 28 07/24/18 19:15 Nasal Cannula 2.0 28 07/24/18 19:15 90 18 95 Nasal Cannula 2.0 28 07/24/18 18:06 98.4 07/24/18 17:35 144/82 07/24/18 16:00 98.4 98 20 144/82 (102) 97 07/24/18 14:47 Nasal Cannula 07/24/18 14:45 Nasal Cannula 07/24/18 13:30 Nasal Cannula 2.0 28 07/24/18 13:30 Nasal Cannula 2.0 28 Intake and Output 07/24/18 07/25/18 19:00 07:00 Intake Total 600 ml 720 ml Output Total 4400 ml 700 ml Balance -3800 ml 20 ml Intake Oral 600 ml 720 ml Output Urine Total 1400 ml 700 ml Hemodialysis UF 3000 ml # Bowel Movements 2 Laboratory Tests 07/25/18 07:58: White Blood Count 5.4, Red Blood Count 2.83L, Hemoglobin 8.9L, Hematocrit 28.8L , Mean Corpuscular Volume 102H, Mean Corpuscular Hemoglobin 31.4H, Mean Corpuscular Hemoglobin Concent 30.9L, Red Cell Distribution Width 13.8, Platelet Count 225, Mean Platelet Volume 6.5, Neutrophils (%) (Auto) 58.0, Lymphocytes (%) (Auto) 16.4L, Monocytes (%) (Auto) 13.4H, Eosinophils (%) (Auto ) 10.9H, Basophils (%) (Auto) 1.3, Sodium Level 135L, Potassium Level 4.9, Chloride Level 100, Carbon Dioxide Level 27, Anion Gap 9, Blood Urea Nitrogen 45H, Creatinine 5.4H, Estimat Glomerular Filtration Rate 13.3, Glucose Level 104 , Calcium Level 8.8 Height (Feet): 5 Height (Inches): 11.00 Weight (Pounds): 221 General Appearance: no apparent distress Cardiovascular: tachycardia Respiratory/Chest: decreased breath sounds Abdomen: soft Objective no change Richar Cm MD Jul 25, 2018 12:12
--- NOTE | 2018-07-25 12:37 | Diagnostic Imaging Report ---
EXAM: XR Chest, 1 View CLINICAL HISTORY: Shortness of breath TECHNIQUE: Frontal view of the chest. COMPARISON: Chest x-ray dated 07/08/18 FINDINGS: Lungs: Left lung base/retrocardiac consolidation may represent subsegmental atelectasis versus infiltrate. Diffusely increased interstitial markings, likely representing pulmonary interstitial edema. Pleural space: Small left pleural effusion. No visible pneumothorax. Heart: Cardiomegaly. Mediastinum: Unremarkable. Bones/joints: Unremarkable. Tubes, lines and devices: Interval placement of a right-sided dual- lumen central venous catheter with the tip in the region of the SVC. IMPRESSION: 1. Findings suggesting CHF, with pulmonary interstitial edema, small left pleural effusion, and cardiomegaly. 2. Left lung base/retrocardiac consolidation may represent subsegmental atelectasis versus infiltrate.
--- NOTE | 2018-07-25 13:00 | Cardiac Electrophysiology PN ---
Assessment/Plan Assessment/Plan 1. Troponin leak in the setting of active cocaine use and renal failure. Levels are flat at 0.2, 0.2 and 0.2. Avoid beta-pablo in view of active cocaine use. On aspirin and Lipitor EF 45%. No CP 2. Hypertension. Changed to Cardizem 240 daily,Metoprolol 100 bid, Imdur 60 , Clonidine 0.1 tid, Lisinopril 20 bid and HD per Dr Cm 3. End-stage renal disease, has not been started on hemodialysis. Cr 8.[address] Cm 4. Substance use with cocaine. Avoid beta-blockers. 5. Recent pneumonia. 6. Congestive heart failure. Echocardiogram EF 45% 7. Severe anemia s/p PRBCs . JEANA RN Subjective Subjective No CP or SOB. Had HD yesterday. Has BIPAP on Objective Last 24 Hour Vital Signs Date Time Temp Pulse Resp B/P (MAP) Pulse Ox O2 Delivery O2 Flow Rate FiO2 07/25/18 12:25 89 144/74 07/25/18 12:09 98.2 89 20 144/74 (97) 96 07/25/18 12:00 88 16 100 Facial 40 07/25/18 09:00 Nasal Cannula 2.0 07/25/18 08:27 93 143/92 07/25/18 08:26 93 143/92 07/25/18 08:26 143/92 07/25/18 08:25 143/92 07/25/18 08:00 97.7 93 20 143/92 (109) 92 07/25/18 07:49 94 20 99 Nasal Cannula 2.0 28 07/25/18 07:41 92 18 97 Nasal Cannula 2.0 28 07/25/18 07:41 97 Nasal Cannula 2.0 28 07/25/18 07:41 Nasal Cannula 2.0 28 07/25/18 04:00 97.6 90 20 130/84 (99) 96 07/25/18 00:14 98.6 07/25/18 00:00 97.0 88 20 118/79 (92) 96 07/24/18 21:00 Nasal Cannula 2.0 07/24/18 20:33 97 155/93 07/24/18 20:00 98.6 103 20 142/86 (104) 100 07/24/18 19:25 92 20 99 Nasal Cannula 2.0 28 07/24/18 19:15 95 Nasal Cannula 2.0 28 07/24/18 19:15 Nasal Cannula 2.0 28 07/24/18 19:15 90 18 95 Nasal Cannula 2.0 28 07/24/18 18:06 98.4 07/24/18 17:35 144/82 07/24/18 16:00 98.4 98 20 144/82 (102) 97 07/24/18 14:47 Nasal Cannula 07/24/18 14:45 Nasal Cannula 07/24/18 13:30 Nasal Cannula 2.0 28 07/24/18 13:30 Nasal Cannula 2.0 28 Intake and Output 07/24/18 07/25/18 19:00 07:00 Intake Total 600 ml 720 ml Output Total 4400 ml 700 ml Balance -3800 ml 20 ml Intake Oral 600 ml 720 ml Output Urine Total 1400 ml 700 ml Hemodialysis UF 3000 ml # Bowel Movements 2 Laboratory Tests Test 07/25/18 07:58 White Blood Count 5.4 K/UL (4.8-10.8) Red Blood Count 2.83 M/UL (4.70-6.10) L Hemoglobin 8.9 G/DL (14.2-18.0) L Hematocrit 28.8 % (42.0-52.0) L Mean Corpuscular Volume 102 FL (80-99) H Mean Corpuscular Hemoglobin 31.4 PG (27.0-31.0) H Mean Corpuscular Hemoglobin Concent 30.9 G/DL (32.0-36.0) L Red Cell Distribution Width 13.8 % (11.6-14.8) Platelet Count 225 K/UL (150-450) Mean Platelet Volume 6.5 FL (6.5-10.1) Neutrophils (%) (Auto) 58.0 % (45.0-75.0) Lymphocytes (%) (Auto) 16.4 % (20.0-45.0) L Monocytes (%) (Auto) 13.4 % (1.0-10.0) H Eosinophils (%) (Auto) 10.9 % (0.0-3.0) H Basophils (%) (Auto) 1.3 % (0.0-2.0) Sodium Level 135 MMOL/L (136-145) L Potassium Level 4.9 MMOL/L (3.5-5.1) Chloride Level 100 MMOL/L (98-107) Carbon Dioxide Level 27 MMOL/L (21-32) Anion Gap 9 mmol/L (5-15) Blood Urea Nitrogen 45 mg/dL (7-18) H Creatinine 5.4 MG/DL (0.55-1.30) H Estimat Glomerular Filtration Rate 13.3 mL/min (>60) Glucose Level 104 MG/DL (74-106) Calcium Level 8.8 MG/DL (8.5-10.1) C-Reactive Protein, Quantitative 6.0 mg/dL (0.00-0.90) H Objective HEAD AND NECK: No JVD. LUNGS: Decreased breath sounds. Right IJ PermCath in place CARDIOVASCULAR: Regular S1 and S2 with no gallop or murmur. ABDOMEN: Soft. EXTREMITIES: 1 plus pitting edema. German Gray MD Jul 25, 2018 13:00
--- NOTE | 2018-07-25 15:52 | General Progress Note ---
Assessment/Plan Assessment/Plan # Anemia of chronic disease, multifactorial, grace on ckd --> Anemia w/u has been reviewed, no eric noted --> No evidence of hemolysis is noted, peripheral smear is wnl --> Hgb goal >7. Transfuse prn. --> continue on epo sq --> on iron # Congestive heart failure with acute decompensated heart failure. --> per cards management --> In tele unit --> on diuresis # Abnormal renal function, likely cardiorenal syndrome. --> Nephrology is following appreciate recs --> BRIDGETT kidneys with minimal fullness, seen by renal, echogenicity is wnl # History of cocaine abuse with current positive tox screen. --> recommend cessation # Hypertension with hypertensive urgency. --> On Norvasc 5 mg bid, Hydralazine,Imdur and Clonidine patch as needed --> Avoid beta-blockers for active cocaine us # Acute coronary syndrome/non-ST elevation myocardial infarction. --> per cards The date and time note entered does not reflect time and date patient was seen. GREATLY APPRECIATE CONSULTATION. Subjective Constitutional: Denies: no symptoms, chills, diaphoresis, fever, malaise, weakness, other HEENT: Denies: no symptoms, eye pain, blurred vision, tearing, double vision, ear pain, ear discharge, nose pain, nose congestion, throat pain, throat swelling, mouth pain, mouth swelling, other Cardiovascular: Denies: no symptoms, chest pain, edema, irregular heart rate, lightheadedness, palpitations, syncope, other Respiratory: Denies: no symptoms, cough, orthopnea, shortness of breath, SOB with excertion, SOB at rest, sputum, stridor, wheezing, other Gastrointestinal/Abdominal: Denies: no symptoms, abdomen distended, abdominal pain, black stools, tarry stools, blood in stool, constipated, diarrhea, difficulty swallowing, nausea, poor appetite, poor fluid intake, rectal bleeding , vomiting, other Neurologic/Psychiatric: Denies: no symptoms, anxiety, depressed, emotional problems, headache, numbness, paresthesia, pre-existing deficit, seizure, tingling, tremors, weakness, other Endocrine: Denies: no symptoms, excessive sweating, flushing, intolerance to cold, intolerance to heat, increased hunger, increased thirst, increased urine, unexplained weight gain, unexplained weight loss, other Hematologic/Lymphatic: Denies: no symptoms, anemia, easy bleeding, easy bruising, other Allergies: Coded Allergies: No Known Allergies (Unverified , 07/08/18) Subjective 07/12: no events, cr trending, h/h stable, on epo 07/14: transfuse one unit 07/13, diruresed, refused mendez, seen by cards, bp better 07/15 : Pt is seen in the room, awake and alert, S/P blood transfusion, refusing HD 07/16 : Pt is awake and resting in bed. waiting on sister to make HD decision, no events 07/17 Pt is seen in the room,awake and alert, appears to be agreeable for placement of dialysis cath and dialysis . 07/18: Pt is seen in the room, No CP or SOB. Had HD today. 07/19: Pt is awake and resting in bed. Denies pain, SOB or fevers and chills. Has HD scheduled for 07/20/18, currently stable. 07/20: received hand held nebulizer, no other events, no f.c 07/21 : Pt seen by bedside, continues on breathing treatment, HD 07/22/18, no events 07/22: pending snf placement and outpatient hd 07/23: awake and resting in bed. no acute events, waiting placement and outpatient HD 07/24: no major events, waiting placement, seen by gi, recs reviewed, no complaints, on epo 07/25: CXR for patient c/o sob. O2 2L via NC administered. patient is A/A/Ox4. patient BLE edematous Objective Last 24 Hour Vital Signs Date Time Temp Pulse Resp B/P (MAP) Pulse Ox O2 Delivery O2 Flow Rate FiO2 07/25/18 14:05 82 16 99 Facial 40 07/25/18 12:25 89 144/74 07/25/18 12:09 98.2 89 20 144/74 (97) 96 07/25/18 12:00 88 16 100 Facial 40 07/25/18 11:39 91 20 99 Nasal Cannula 2.0 28 07/25/18 11:29 88 18 96 Nasal Cannula 2.0 28 07/25/18 09:00 Nasal Cannula 2.0 07/25/18 08:27 93 143/92 07/25/18 08:26 93 143/92 07/25/18 08:26 143/92 07/25/18 08:25 143/92 07/25/18 08:00 97.7 93 20 143/92 (109) 92 07/25/18 07:49 94 20 99 Nasal Cannula 2.0 28 07/25/18 07:41 92 18 97 Nasal Cannula 2.0 28 07/25/18 07:41 97 Nasal Cannula 2.0 28 07/25/18 07:41 Nasal Cannula 2.0 28 07/25/18 04:00 97.6 90 20 130/84 (99) 96 07/25/18 00:14 98.6 07/25/18 00:00 97.0 88 20 118/79 (92) 96 07/24/18 21:00 Nasal Cannula 2.0 07/24/18 20:33 97 155/93 07/24/18 20:00 98.6 103 20 142/86 (104) 100 07/24/18 19:25 92 20 99 Nasal Cannula 2.0 28 07/24/18 19:15 95 Nasal Cannula 2.0 28 07/24/18 19:15 Nasal Cannula 2.0 28 07/24/18 19:15 90 18 95 Nasal Cannula 2.0 28 07/24/18 18:06 98.4 07/24/18 17:35 144/82 07/24/18 16:00 98.4 98 20 144/82 (102) 97 Intake and Output 07/24/18 07/25/18 19:00 07:00 Intake Total 600 ml 720 ml Output Total 4400 ml 700 ml Balance -3800 ml 20 ml Intake Oral 600 ml 720 ml Output Urine Total 1400 ml 700 ml Hemodialysis UF 3000 ml # Bowel Movements 2 Laboratory Tests 07/25/18 07:58: White Blood Count 5.4, Red Blood Count 2.83L, Hemoglobin 8.9L, Hematocrit 28.8L , Mean Corpuscular Volume 102H, Mean Corpuscular Hemoglobin 31.4H, Mean Corpuscular Hemoglobin Concent 30.9L, Red Cell Distribution Width 13.8, Platelet Count 225, Mean Platelet Volume 6.5, Neutrophils (%) (Auto) 58.0, Lymphocytes (%) (Auto) 16.4L, Monocytes (%) (Auto) 13.4H, Eosinophils (%) (Auto ) 10.9H, Basophils (%) (Auto) 1.3, Sodium Level 135L, Potassium Level 4.9, Chloride Level 100, Carbon Dioxide Level 27, Anion Gap 9, Blood Urea Nitrogen 45H, Creatinine 5.4H, Estimat Glomerular Filtration Rate 13.3, Glucose Level 104 , Calcium Level 8.8, C-Reactive Protein, Quantitative 6.0H 07/25/18 14:05: Arterial Blood pH 7.346L, Arterial Blood Partial Pressure CO2 50.1H, Arterial Blood Partial Pressure O2 79.3, Arterial Blood HCO3 26.8H, Arterial Blood Oxygen Saturation 95.2, Arterial Blood Base Excess 0.7, Enzo Test Positive Height (Feet): 5 Height (Inches): 11.00 Weight (Pounds): 221 Objective Physical Exam General Appearance: A+O x2 NAD HEENT: normocephalic, atraumatic Neck: non-tender, normal alignment Respiratory/Chest: chest wall non-tender, lungs clear Cardiovascular/Chest: normal peripheral pulses, normal rate Abdomen: normal bowel sounds, non tender Extremities: normal range of motion Shane Mary MD Jul 25, 2018 15:52
[2018-07-25 16:00] VITALS: BP 125/79
--- NOTE | 2018-07-25 16:25 | Pulmonology Progress Note ---
Assessment/Plan Problems: (1) Acute exacerbation of CHF (congestive heart failure) (2) Hypertensive cardiomegaly with heart failure (3) ACS (acute coronary syndrome) (4) Cocaine abuse (5) ARF (acute renal failure) (6) DDD (degenerative disc disease) (7) Epistaxis (8) Hypercapnic respiratory failure Assessment/Plan ASSESSMENT: The patient is a 58-year-old male with history of cocaine and tobacco abuse, congestive heart failure, and renal impairment, presenting with decompensated heart failure and abnormal renal function with marked uremia. He has previously been told he needs dialysis. He is now being admitted for acute coronary syndrome and likely need for dialysis. PROBLEM LIST: 1. Congestive heart failure with acute decompensated heart failure. 2. Abnormal renal function, likely cardiorenal syndrome now on HD 3. History of cocaine abuse with current positive tox screen. 4. Anemia/DARSHANA 5. Hypertension with hypertensive urgency. 6. Acute coronary syndrome/non-ST elevation myocardial infarction. 7. Acute on chronic LBP with radiculopathy ---> DDD/SS TREATMENT PLAN: -Tx to [facility] -NPO -BiPAP 06/17 -Titrate FiO2 -RTC and PRN DUOnebs -HD per renal with UF as able -Control BP -F/U cards and renal recs -F/U heme recs -F/U GI recs ---> plan for outpatient EGD/colo -DVT Px: hep SQ -Pain control/supportive care - minimize narcotics/sedatives -F/U pain management recs -Appreciate psych eval, has capacity, F/U recs -SW assistance in placement Subjective Allergies: Coded Allergies: No Known Allergies (Unverified , 07/08/18) Subjective -3.2L AFVSS inc WOB CXR with PVC 7.36/50/79/26/95 Less edematous Txd to [facility] on BiPAP No change in chronic back pain No SOB, no CP, no F/C Objective Last 24 Hour Vital Signs Date Time Temp Pulse Resp B/P (MAP) Pulse Ox O2 Delivery O2 Flow Rate FiO2 07/25/18 14:05 82 16 99 Facial 40 07/25/18 12:25 89 144/74 07/25/18 12:09 98.2 89 20 144/74 (97) 96 07/25/18 12:00 88 16 100 Facial 40 07/25/18 11:39 91 20 99 Nasal Cannula 2.0 28 07/25/18 11:29 88 18 96 Nasal Cannula 2.0 28 07/25/18 09:00 Nasal Cannula 2.0 07/25/18 08:27 93 143/92 07/25/18 08:26 93 143/92 07/25/18 08:26 143/92 07/25/18 08:25 143/92 07/25/18 08:00 97.7 93 20 143/92 (109) 92 07/25/18 07:49 94 20 99 Nasal Cannula 2.0 28 07/25/18 07:41 92 18 97 Nasal Cannula 2.0 28 07/25/18 07:41 97 Nasal Cannula 2.0 28 07/25/18 07:41 Nasal Cannula 2.0 28 07/25/18 04:00 97.6 90 20 130/84 (99) 96 07/25/18 00:14 98.6 07/25/18 00:00 97.0 88 20 118/79 (92) 96 07/24/18 21:00 Nasal Cannula 2.0 07/24/18 20:33 97 155/93 07/24/18 20:00 98.6 103 20 142/86 (104) 100 07/24/18 19:25 92 20 99 Nasal Cannula 2.0 28 07/24/18 19:15 95 Nasal Cannula 2.0 28 07/24/18 19:15 Nasal Cannula 2.0 28 07/24/18 19:15 90 18 95 Nasal Cannula 2.0 28 07/24/18 18:06 98.4 07/24/18 17:35 144/82 Intake and Output 07/24/18 07/25/18 19:00 07:00 Intake Total 600 ml 720 ml Output Total 4400 ml 700 ml Balance -3800 ml 20 ml Intake Oral 600 ml 720 ml Output Urine Total 1400 ml 700 ml Hemodialysis UF 3000 ml # Bowel Movements 2 General Appearance: other - Inc WOB on BiPAP HEENT: normocephalic, atraumatic, anicteric, mucous membranes moist, other - BiPAP Respiratory/Chest: crackles/rales Cardiovascular: normal peripheral pulses, normal rate, regular rhythm Abdomen: normal bowel sounds, soft, non tender, no organomegaly, non distended , no mass Extremities: no cyanosis, no clubbing, other - 2+ STEPHANI Laboratory Tests 07/25/18 07:58: White Blood Count 5.4, Red Blood Count 2.83L, Hemoglobin 8.9L, Hematocrit 28.8L , Mean Corpuscular Volume 102H, Mean Corpuscular Hemoglobin 31.4H, Mean Corpuscular Hemoglobin Concent 30.9L, Red Cell Distribution Width 13.8, Platelet Count 225, Mean Platelet Volume 6.5, Neutrophils (%) (Auto) 58.0, Lymphocytes (%) (Auto) 16.4L, Monocytes (%) (Auto) 13.4H, Eosinophils (%) (Auto ) 10.9H, Basophils (%) (Auto) 1.3, Sodium Level 135L, Potassium Level 4.9, Chloride Level 100, Carbon Dioxide Level 27, Anion Gap 9, Blood Urea Nitrogen 45H, Creatinine 5.4H, Estimat Glomerular Filtration Rate 13.3, Glucose Level 104 , Calcium Level 8.8, C-Reactive Protein, Quantitative 6.0H 07/25/18 14:05: Arterial Blood pH 7.346L, Arterial Blood Partial Pressure CO2 50.1H, Arterial Blood Partial Pressure O2 79.3, Arterial Blood HCO3 26.8H, Arterial Blood Oxygen Saturation 95.2, Arterial Blood Base Excess 0.7, Enzo Test Positive Current Medications Medications (Trade) Dose Ordered Sig/Harish Route PRN Reason Start Time Stop Time Status Last Admin Dose Admin Acetaminophen (Tylenol) 650 mg Q4H PRN ORAL Mild Pain/Temp > 100.5 07/17/18 23:15 08/07/18 23:14 07/24/18 23:44 Acetaminophen/ Hydrocodone Bitart ([place] 10/325) 1 tab Q4H PRN ORAL Severe Pain (Pain Scale 7-10) 07/21/18 08:54 07/27/18 08:53 07/24/18 17:36 Albuterol/ Ipratropium (Albuterol/ Ipratropium) 3 ml TIDRT HHN 07/23/18 19:00 07/28/18 18:59 07/25/18 11:29 Aspirin (ASA) 81 mg DAILY ORAL 07/18/18 09:00 08/08/18 08:59 07/25/18 08:27 Clonidine HCl (Catapres Tab) 0.1 mg Q4H PRN ORAL bp over 165 syst 07/23/18 11:15 08/22/18 11:14 Dextrose (Dextrose 50%) 25 ml Q30M PRN IV Hypoglycemia 07/17/18 21:15 08/07/18 23:14 Dextrose (Dextrose 50%) 50 ml Q30M PRN IV Hypoglycemia 07/17/18 21:15 08/07/18 23:14 Diltiazem HCl (Cardizem CD) 240 mg DAILY ORAL 07/26/18 09:00 08/25/18 08:59 Diphenhydramine HCl (Benadryl) 25 mg Q6H PRN ORAL Itching/Pruritis 07/17/18 23:15 08/07/18 23:14 07/24/18 23:43 Docusate Sodium (Colace) 100 mg THREE TIMES A DAY ORAL 07/21/18 18:00 08/20/18 17:59 07/23/18 08:48 Epoetin Juan Pablo (Procrit (for non ESRD use)) 10,000 units FRI-FRI-FRI SUBQ 07/17/18 22:00 08/12/18 21:59 07/24/18 20:39 Gabapentin (Neurontin) 300 mg THREE TIMES A DAY ORAL 07/24/18 13:00 08/17/18 17:59 07/25/18 12:26 Heparin Sodium (Porcine) (Heparin 5000 units/ml) 5,000 units EVERY 12 HOURS SUBQ 07/17/18 22:00 08/14/18 21:59 07/25/18 08:34 Isosorbide Mononitrate (Imdur) 60 mg DAILY ORAL 07/18/18 09:00 08/11/18 08:59 07/25/18 08:26 Lisinopril (Prinivil) 20 mg BID ORAL 07/25/18 18:00 08/19/18 08:59 Metoprolol Tartrate (Lopressor) 100 mg Q12HR ORAL 07/24/18 21:00 08/22/18 20:59 07/25/18 08:26 Pantoprazole (Protonix) 40 mg DAILY ORAL 07/23/18 09:00 08/10/18 21:59 07/25/18 08:26 Polyethylene Glycol (Miralax) 17 gm BEDTIME ORAL 07/21/18 21:00 08/20/18 20:59 07/23/18 21:04 Sevelamer Carbonate (Renvela) 800 mg THREE TIMES A DAY ORAL 07/23/18 13:00 08/08/18 17:59 07/25/18 12:26 Tamsulosin HCl (Flomax) 0.4 mg QHS ORAL 07/18/18 21:00 08/09/18 12:52 07/24/18 20:33 Edgard Webb MD Jul 25, 2018 16:25
[2018-07-25] MEDS ORDERED: Albuterol/Ipratropium 3ml neb HHN PRN (16:30)
[2018-07-25] MEDS: Lisinopril 20mg tab ORAL SCH (17:32)
[2018-07-25] MEDS: HYDROcodone/Acetamin 10/325 tab ORAL PRN ×2 (17:41→21:33)
[2018-07-25] MEDS ORDERED: Lisinopril 20mg tab ORAL SCH (18:00)
[2018-07-25 20:00] VITALS: BP 143/90
[2018-07-25] MEDS: Tamsulosin 0.4mg cap ORAL SCH (21:33)
[2018-07-25] MEDS: Miralax 17gm pkt ORAL SCH (21:47)
[2018-07-26] VITALS (7 sets, daily range): BP systolic 128–157; BP diastolic 83–95
[2018-07-26 05:37] LABS: BASOPHILS % (AUTO) 0.5 % (0.0-2.0); EOSINOPHILS % (AUTO) 6.6 % (0.0-3.0); HEMATOCRIT 28.6 % (42.0-52.0); HEMOGLOBIN 8.7 G/DL (14.2-18.0); LYMPHOCYTES % (AUTO) 19.6 % (20.0-45.0); MEAN CORPUSCULAR VOLUME 101 FL (80-99); MONOCYTES % (AUTO) 12.2 % (1.0-10.0); NEUTROPHILS % (AUTO) 61.1 % (45.0-75.0); PLATELET COUNT 240 K/UL (150-450); RED BLOOD COUNT 2.83 M/UL (4.70-6.10); RED CELL DISTRIBUTION WIDTH 13.7 % (11.6-14.8); WHITE BLOOD COUNT 4.9 K/UL (4.8-10.8)
[2018-07-26 06:06] LABS: ALANINE AMINOTRANSFERASE 37 U/L (12-78); ALBUMIN 2.6 G/DL (3.4-5.0); ALBUMIN/GLOBULIN RATIO 0.6 (1.0-2.7); ALKALINE PHOSPHATASE 153 U/L (46-116); ANION GAP 7 mmol/L (5-15); ASPARTATE AMINO TRANSFERASE 25 U/L (15-37); BILIRUBIN,TOTAL 0.2 MG/DL (0.2-1.0); BLOOD UREA NITROGEN 52 mg/dL (7-18); CALCIUM 8.8 MG/DL (8.5-10.1); CARBON DIOXIDE 28 MMOL/L (21-32); CHLORIDE 102 MMOL/L (98-107); CREATININE 6.3 MG/DL (0.55-1.30); GAMMA GLUTAMYL TRANSPEPTIDASE 118 U/L (5-85); PHOSPHORUS 3.9 MG/DL (2.5-4.9); SODIUM 137 MMOL/L (136-145)
[2018-07-26] MEDS: Albuterol/Ipratropium 3ml neb HHN SCH ×3 (07:06→20:59)
[2018-07-26] MEDS: Lisinopril 20mg tab ORAL SCH ×2 (08:19→17:17)
[2018-07-26] MEDS: Heparin 5000 units/ml inj SUBQ SCH ×2 (08:22→20:23)
[2018-07-26] MEDS: Docusate 100mg cap ORAL SCH ×3 (08:23→17:17)
[2018-07-26] MEDS: HYDROcodone/Acetamin 10/325 tab ORAL PRN ×2 (08:30→20:24)
[2018-07-26] MEDS ORDERED: dilTIAZem HCl CD 240mg cap ORAL SCH ×2 (09:00)
[2018-07-26] MEDS ORDERED: Imdur 30mg tab ORAL SCH (09:00)
[2018-07-26] MEDS ORDERED: Aspirin Baby 81mg ORAL SCH (09:00)
--- NOTE | 2018-07-26 12:41 | General Progress Note ---
Assessment/Plan Assessment/Plan (1) Lumbar DDD (2) Lumbar Spondylosis (3) Cocaine Abuse Patient will be continued on [place] as needed. D/w Dr. Rosado and he concurred. Subjective Date patient seen: Jul 26, 2018 Time patient seen: 11:30 - am Allergies: Coded Allergies: No Known Allergies (Unverified , 07/08/18) Subjective REVIEW OF SYSTEMS: Denies rash, fever, chills, sweating, dizziness, drowsiness, blurred vision, or change in weight. No chest pain. No nausea, vomiting, diarrhea, or blood in the stool or urine. No bowel or bladder incontinence. He is complaining of low back pain. SUBJECTIVE: Patient was transferred to [facility] started on Bipap. At this time in bed eating and conversing. Pain is tolerated on the [place]. He has no new complaints. Objective Last 24 Hour Vital Signs Date Time Temp Pulse Resp B/P (MAP) Pulse Ox O2 Delivery O2 Flow Rate FiO2 07/26/18 12:00 Nasal Cannula 3.0 07/26/18 09:00 Nasal Cannula 3.0 07/26/18 08:18 97.8 88 21 154/95 (114) 93 07/26/18 07:37 85 07/26/18 07:18 80 20 99 Nasal Cannula 2.0 28 07/26/18 07:08 88 18 96 Nasal Cannula 2.0 28 07/26/18 07:08 Nasal Cannula 2.0 28 07/26/18 07:08 97 Nasal Cannula 2.0 28 07/26/18 07:06 88 20 Nasal Cannula 2.0 28 07/26/18 05:12 80 18 98 Facial 40 07/26/18 04:00 98.2 80 16 144/91 (108) 100 07/26/18 03:14 84 18 98 Facial 40 07/26/18 01:51 80 23 96 Facial 40 07/26/18 00:00 98.9 87 18 128/83 (98) 100 07/25/18 22:33 87 18 98 Facial 40 07/25/18 21:45 87 125/79 07/25/18 21:00 Nasal Cannula 3.0 07/25/18 20:10 87 16 98 Bi-pap 40 07/25/18 20:00 97.9 87 16 143/90 (107) 99 07/25/18 19:57 Bi-pap 40 07/25/18 19:57 98 Bi-pap 40 07/25/18 19:57 83 16 98 Facial 40 07/25/18 19:57 83 21 98 Bi-pap 40 07/25/18 17:32 125/79 07/25/18 16:30 Nasal Cannula 3.0 07/25/18 16:00 98.4 86 20 125/79 (94) 93 07/25/18 15:55 86 07/25/18 14:05 82 16 99 Facial 40 Intake and Output 07/25/18 07/26/18 19:00 07:00 Intake Total 1280 ml 220 ml Output Total 1700 ml 400 ml Balance -420 ml -180 ml Intake Oral 1280 ml 220 ml Output Urine Total 1700 ml 400 ml # Voids 2 Laboratory Tests 07/25/18 14:05: Arterial Blood pH 7.346L, Arterial Blood Partial Pressure CO2 50.1H, Arterial Blood Partial Pressure O2 79.3, Arterial Blood HCO3 26.8H, Arterial Blood Oxygen Saturation 95.2, Arterial Blood Base Excess 0.7, Enzo Test Positive 07/25/18 18:00: Troponin I 0.033 07/26/18 03:25: Troponin I 0.032, White Blood Count 4.9, Red Blood Count 2.83L, Hemoglobin 8.7L , Hematocrit 28.6L, Mean Corpuscular Volume 101H, Mean Corpuscular Hemoglobin 30.8, Mean Corpuscular Hemoglobin Concent 30.6L, Red Cell Distribution Width 13.7, Platelet Count 240, Mean Platelet Volume 6.7, Neutrophils (%) (Auto) 61.1 , Lymphocytes (%) (Auto) 19.6L, Monocytes (%) (Auto) 12.2H, Eosinophils (%) ( Auto) 6.6H, Basophils (%) (Auto) 0.5, Sodium Level 137, Potassium Level 5.0, Chloride Level 102, Carbon Dioxide Level 28, Anion Gap 7, Blood Urea Nitrogen 52H, Creatinine 6.3H, Estimat Glomerular Filtration Rate 11.2, Glucose Level 108H, Uric Acid 5.2, Calcium Level 8.8, Phosphorus Level 3.9, Magnesium Level 1.7L, Total Bilirubin 0.2, Gamma Glutamyl Transpeptidase 118H, Aspartate Amino Transf (AST/SGOT) 25, Alanine Aminotransferase (ALT/SGPT) 37, Alkaline Phosphatase 153H, Pro-B-Type Natriuretic Peptide 87470L, Total Protein 6.8, Albumin 2.6L, Globulin 4.2, Albumin/Globulin Ratio 0.6L Height (Feet): 5 Height (Inches): 11.00 Weight (Pounds): 221 Objective GENERAL: Alert, awake, and oriented. LUNGS: Decreased breath sounds bilaterally. HEART: S1 and S2 regular. ABDOMEN: Soft, nontender. EXTREMITIES: No CCE NEURO: No changes. James Ramirez Jul 26, 2018 12:41
--- NOTE | 2018-07-26 12:42 | Pulmonology Progress Note ---
Assessment/Plan Problems: (1) Acute exacerbation of CHF (congestive heart failure) (2) Hypertensive cardiomegaly with heart failure (3) ACS (acute coronary syndrome) (4) Cocaine abuse (5) ARF (acute renal failure) (6) DDD (degenerative disc disease) (7) Epistaxis (8) Hypercapnic respiratory failure Assessment/Plan ASSESSMENT: The patient is a 58-year-old male with history of cocaine and tobacco abuse, congestive heart failure, and renal impairment, presenting with decompensated heart failure and abnormal renal function with marked uremia. He has previously been told he needs dialysis. He is now being admitted for acute coronary syndrome and likely need for dialysis. PROBLEM LIST: 1. Congestive heart failure with acute decompensated heart failure. 2. Abnormal renal function, likely cardiorenal syndrome now on HD 3. History of cocaine abuse with current positive tox screen. 4. Anemia/DARSHANA 5. Hypertension with hypertensive urgency. 6. Acute coronary syndrome/non-ST elevation myocardial infarction. 7. Acute on chronic LBP with radiculopathy ---> DDD/SS TREATMENT PLAN: -D/C [facility] -Change BiPAP to 12/5 qHS and PRN -Titrate FiO2 -RTC and PRN DUOnebs -HD per renal with UF as able -Control BP -F/U cards and renal recs -F/U heme recs -F/U GI recs ---> plan for outpatient EGD/colo -DVT Px: hep SQ -Pain control/supportive care - minimize narcotics/sedatives -F/U pain management recs -Appreciate psych eval, has capacity, F/U recs -SW assistance in placement Subjective Allergies: Coded Allergies: No Known Allergies (Unverified , 07/08/18) Subjective -600 AFVSS, used BiPAP ON now on 2-3L Feels better, less SOB, no CP, no F/C Objective Last 24 Hour Vital Signs Date Time Temp Pulse Resp B/P (MAP) Pulse Ox O2 Delivery O2 Flow Rate FiO2 07/26/18 12:00 Nasal Cannula 3.0 07/26/18 09:00 Nasal Cannula 3.0 07/26/18 08:18 97.8 88 21 154/95 (114) 93 07/26/18 07:37 85 07/26/18 07:18 80 20 99 Nasal Cannula 2.0 28 07/26/18 07:08 88 18 96 Nasal Cannula 2.0 28 07/26/18 07:08 Nasal Cannula 2.0 28 07/26/18 07:08 97 Nasal Cannula 2.0 28 07/26/18 07:06 88 20 Nasal Cannula 2.0 28 07/26/18 05:12 80 18 98 Facial 40 07/26/18 04:00 98.2 80 16 144/91 (108) 100 07/26/18 03:14 84 18 98 Facial 40 07/26/18 01:51 80 23 96 Facial 40 07/26/18 00:00 98.9 87 18 128/83 (98) 100 07/25/18 22:33 87 18 98 Facial 40 07/25/18 21:45 87 125/79 07/25/18 21:00 Nasal Cannula 3.0 07/25/18 20:10 87 16 98 Bi-pap 40 07/25/18 20:00 97.9 87 16 143/90 (107) 99 07/25/18 19:57 Bi-pap 40 07/25/18 19:57 98 Bi-pap 40 07/25/18 19:57 83 16 98 Facial 40 07/25/18 19:57 83 21 98 Bi-pap 40 07/25/18 17:32 125/79 07/25/18 16:30 Nasal Cannula 3.0 07/25/18 16:00 98.4 86 20 125/79 (94) 93 07/25/18 15:55 86 07/25/18 14:05 82 16 99 Facial 40 Intake and Output 07/25/18 07/26/18 19:00 07:00 Intake Total 1280 ml 220 ml Output Total 1700 ml 400 ml Balance -420 ml -180 ml Intake Oral 1280 ml 220 ml Output Urine Total 1700 ml 400 ml # Voids 2 General Appearance: WD/WN, no acute distress HEENT: normocephalic, atraumatic, anicteric, mucous membranes moist Respiratory/Chest: chest wall non-tender, lungs clear, normal breath sounds, no respiratory distress, no accessory muscle use Cardiovascular: normal peripheral pulses, normal rate, regular rhythm Abdomen: normal bowel sounds, soft, non tender, no organomegaly, non distended , no mass Extremities: no cyanosis, no clubbing, no edema Laboratory Tests 07/25/18 14:05: Arterial Blood pH 7.346L, Arterial Blood Partial Pressure CO2 50.1H, Arterial Blood Partial Pressure O2 79.3, Arterial Blood HCO3 26.8H, Arterial Blood Oxygen Saturation 95.2, Arterial Blood Base Excess 0.7, Enzo Test Positive 07/25/18 18:00: Troponin I 0.033 07/26/18 03:25: Troponin I 0.032, White Blood Count 4.9, Red Blood Count 2.83L, Hemoglobin 8.7L , Hematocrit 28.6L, Mean Corpuscular Volume 101H, Mean Corpuscular Hemoglobin 30.8, Mean Corpuscular Hemoglobin Concent 30.6L, Red Cell Distribution Width 13.7, Platelet Count 240, Mean Platelet Volume 6.7, Neutrophils (%) (Auto) 61.1 , Lymphocytes (%) (Auto) 19.6L, Monocytes (%) (Auto) 12.2H, Eosinophils (%) ( Auto) 6.6H, Basophils (%) (Auto) 0.5, Sodium Level 137, Potassium Level 5.0, Chloride Level 102, Carbon Dioxide Level 28, Anion Gap 7, Blood Urea Nitrogen 52H, Creatinine 6.3H, Estimat Glomerular Filtration Rate 11.2, Glucose Level 108H, Uric Acid 5.2, Calcium Level 8.8, Phosphorus Level 3.9, Magnesium Level 1.7L, Total Bilirubin 0.2, Gamma Glutamyl Transpeptidase 118H, Aspartate Amino Transf (AST/SGOT) 25, Alanine Aminotransferase (ALT/SGPT) 37, Alkaline Phosphatase 153H, Pro-B-Type Natriuretic Peptide 84443Q, Total Protein 6.8, Albumin 2.6L, Globulin 4.2, Albumin/Globulin Ratio 0.6L Current Medications Medications (Trade) Dose Ordered Sig/Harish Route PRN Reason Start Time Stop Time Status Last Admin Dose Admin Acetaminophen (Tylenol) 650 mg Q4H PRN ORAL Mild Pain/Temp > 100.5 07/25/18 16:30 08/07/18 16:29 Acetaminophen/ Hydrocodone Bitart ([place] 10/325) 1 tab Q4H PRN ORAL Severe Pain (Pain Scale 7-10) 07/25/18 16:30 07/27/18 16:29 07/26/18 08:30 Albuterol/ Ipratropium (Albuterol/ Ipratropium) 3 ml Q4H PRN HHN Shortness of Breath 07/25/18 16:30 07/30/18 16:29 Albuterol/ Ipratropium (Albuterol/ Ipratropium) 3 ml TIDRT HHN 07/25/18 19:00 07/28/18 18:59 07/26/18 07:06 Aspirin (ASA) 81 mg DAILY ORAL 07/26/18 09:00 08/08/18 08:59 07/26/18 08:23 Chlorhexidine Gluconate ([place]-Hex 2%) 1 applic DAILY@2000 TOPIC 07/26/18 20:00 08/25/18 19:59 Clonidine HCl (Catapres Tab) 0.1 mg Q4H PRN ORAL bp over 165 syst 07/25/18 16:30 08/22/18 16:29 Dextrose (Dextrose 50%) 25 ml Q30M PRN IV Hypoglycemia 07/25/18 16:30 08/07/18 16:29 Dextrose (Dextrose 50%) 50 ml Q30M PRN IV Hypoglycemia 07/25/18 16:30 08/07/18 16:29 Diltiazem HCl (Cardizem CD) 240 mg DAILY ORAL 07/26/18 09:00 08/25/18 08:59 Diphenhydramine HCl (Benadryl) 25 mg Q6H PRN ORAL Itching/Pruritis 07/25/18 16:30 08/07/18 16:29 07/25/18 21:54 Docusate Sodium (Colace) 100 mg THREE TIMES A DAY ORAL 07/25/18 18:00 08/20/18 17:59 07/26/18 08:23 Epoetin [place] (Procrit (for non ESRD use)) 10,000 units FRI-FRI-FRI SUBQ 07/27/18 21:00 08/12/18 21:59 Gabapentin (Neurontin) 300 mg THREE TIMES A DAY ORAL 07/25/18 18:00 08/17/18 17:59 07/26/18 08:24 Heparin Sodium (Porcine) (Heparin 5000 units/ml) 5,000 units EVERY 12 HOURS SUBQ 07/25/18 21:00 08/14/18 21:59 07/26/18 08:22 Isosorbide Mononitrate (Imdur) 60 mg DAILY ORAL 07/26/18 09:00 08/11/18 08:59 Lisinopril (Prinivil) 20 mg BID ORAL 07/25/18 18:00 08/19/18 08:59 07/25/18 17:32 Metoprolol Tartrate (Lopressor) 100 mg Q12HR ORAL 07/25/18 21:00 08/22/18 20:59 07/25/18 21:45 Pantoprazole (Protonix) 40 mg DAILY ORAL 07/26/18 09:00 08/10/18 21:59 07/26/18 08:23 Polyethylene Glycol (Miralax) 17 gm BEDTIME ORAL 07/25/18 21:00 08/20/18 20:59 Sevelamer Carbonate (Renvela) 800 mg THREE TIMES A DAY ORAL 07/25/18 18:00 08/08/18 17:59 07/26/18 08:22 Tamsulosin HCl (Flomax) 0.4 mg QHS ORAL 07/25/18 21:00 08/09/18 12:52 07/25/18 21:33 Edgard Webb MD Jul 26, 2018 12:42
--- NOTE | 2018-07-26 13:27 | Cardiac Electrophysiology PN ---
Assessment/Plan Assessment/Plan 1. Troponin leak in the setting of active cocaine use and renal failure. Levels are flat at 0.2, 0.2 and 0.2. Avoid beta-pablo in view of active cocaine use. On aspirin and Lipitor EF 45%. No CP 2. Hypertension. On Cardizem 240 daily,Metoprolol 100 bid, Imdur 60, Clonidine 0.1 tid, Lisinopril 20 bid [address] HD per Dr Cm 3. End-stage renal disease, has not been started on hemodialysis. Cr 8.[address] Cm 4. Substance use with cocaine. Avoid beta-blockers. 5. Recent pneumonia. 6. Congestive heart failure. Echocardiogram EF 45% 7. Severe anemia s/p PRBCs . JEANA RN Subjective Subjective Was SOB. Getting HD. Transferred to [facility] Objective Last 24 Hour Vital Signs Date Time Temp Pulse Resp B/P (MAP) Pulse Ox O2 Delivery O2 Flow Rate FiO2 07/26/18 12:47 82 20 99 Nasal Cannula 2.0 28 07/26/18 12:41 84 18 96 Nasal Cannula 2.0 28 07/26/18 12:00 97.3 94 24 157/86 (109) 94 07/26/18 12:00 92 07/26/18 12:00 Nasal Cannula 3.0 07/26/18 09:00 Nasal Cannula 3.0 07/26/18 08:18 97.8 88 21 154/95 (114) 93 07/26/18 07:37 85 07/26/18 07:18 80 20 99 Nasal Cannula 2.0 28 07/26/18 07:08 88 18 96 Nasal Cannula 2.0 28 07/26/18 07:08 Nasal Cannula 2.0 28 07/26/18 07:08 97 Nasal Cannula 2.0 28 07/26/18 07:06 88 20 Nasal Cannula 2.0 28 07/26/18 05:12 80 18 98 Facial 40 07/26/18 04:00 98.2 80 16 144/91 (108) 100 07/26/18 03:14 84 18 98 Facial 40 07/26/18 01:51 80 23 96 Facial 40 07/26/18 00:00 98.9 87 18 128/83 (98) 100 07/25/18 22:33 87 18 98 Facial 40 07/25/18 21:45 87 125/79 07/25/18 21:00 Nasal Cannula 3.0 07/25/18 20:10 87 16 98 Bi-pap 40 07/25/18 20:00 97.9 87 16 143/90 (107) 99 07/25/18 19:57 Bi-pap 40 07/25/18 19:57 98 Bi-pap 40 07/25/18 19:57 83 16 98 Facial 40 07/25/18 19:57 83 21 98 Bi-pap 40 07/25/18 17:32 125/79 07/25/18 16:30 Nasal Cannula 3.0 07/25/18 16:00 98.4 86 20 125/79 (94) 93 07/25/18 15:55 86 07/25/18 14:05 82 16 99 Facial 40 Intake and Output 07/25/18 07/26/18 19:00 07:00 Intake Total 1280 ml 220 ml Output Total 1700 ml 400 ml Balance -420 ml -180 ml Intake Oral 1280 ml 220 ml Output Urine Total 1700 ml 400 ml # Voids 2 Laboratory Tests Test 07/25/18 14:05 07/25/18 18:00 07/26/18 03:25 Arterial Blood pH 7.346 (7.350-7.450) Arterial Blood Partial Pressure CO2 50.1 mmHg (35.0-45.0) H Arterial Blood Partial Pressure O2 79.3 mmHg (75.0-100.0) Arterial Blood HCO3 26.8 mmol/L (22.0-26.0) H Arterial Blood Oxygen Saturation 95.2 % (95-100) Arterial Blood Base Excess 0.7 (-2-2) Enzo Test Positive Troponin I 0.033 ng/mL (0.000-0.056) 0.032 ng/mL (0.000-0.056) White Blood Count 4.9 K/UL (4.8-10.8) Red Blood Count 2.83 M/UL (4.70-6.10) L Hemoglobin 8.7 G/DL (14.2-18.0) L Hematocrit 28.6 % (42.0-52.0) L Mean Corpuscular Volume 101 FL (80-99) H Mean Corpuscular Hemoglobin 30.8 PG (27.0-31.0) Mean Corpuscular Hemoglobin Concent 30.6 G/DL (32.0-36.0) L Red Cell Distribution Width 13.7 % (11.6-14.8) Platelet Count 240 K/UL (150-450) Mean Platelet Volume 6.7 FL (6.5-10.1) Neutrophils (%) (Auto) 61.1 % (45.0-75.0) Lymphocytes (%) (Auto) 19.6 % (20.0-45.0) L Monocytes (%) (Auto) 12.2 % (1.0-10.0) H Eosinophils (%) (Auto) 6.6 % (0.0-3.0) H Basophils (%) (Auto) 0.5 % (0.0-2.0) Sodium Level 137 MMOL/L (136-145) Potassium Level 5.0 MMOL/L (3.5-5.1) Chloride Level 102 MMOL/L (98-107) Carbon Dioxide Level 28 MMOL/L (21-32) Anion Gap 7 mmol/L (5-15) Blood Urea Nitrogen 52 mg/dL (7-18) H Creatinine 6.3 MG/DL (0.55-1.30) H Estimat Glomerular Filtration Rate 11.2 mL/min (>60) Glucose Level 108 MG/DL (74-106) H Uric Acid 5.2 MG/DL (2.6-7.2) Calcium Level 8.8 MG/DL (8.5-10.1) Phosphorus Level 3.9 MG/DL (2.5-4.9) Magnesium Level 1.7 MG/DL (1.8-2.4) L Total Bilirubin 0.2 MG/DL (0.2-1.0) Gamma Glutamyl Transpeptidase 118 U/L (5-85) H Aspartate Amino Transf (AST/SGOT) 25 U/L (15-37) Alanine Aminotransferase (ALT/SGPT) 37 U/L (12-78) Alkaline Phosphatase 153 U/L (46-116) H Pro-B-Type Natriuretic Peptide 41481 pg/mL (0-125) H Total Protein 6.8 G/DL (6.4-8.2) Albumin 2.6 G/DL (3.4-5.0) L Globulin 4.2 g/dL Albumin/Globulin Ratio 0.6 (1.0-2.7) L Objective HEAD AND NECK: No JVD. LUNGS: Decreased breath sounds. Right IJ PermCath CARDIOVASCULAR: Regular S1 and S2 with no gallop or murmur. ABDOMEN: Soft. EXTREMITIES: 1 plus pitting edema. German Gray MD Jul 26, 2018 13:27
--- NOTE | 2018-07-26 15:24 | General Progress Note ---
Assessment/Plan Assessment/Plan # Anemia of chronic disease, multifactorial, grace on ckd --> Anemia w/u has been reviewed, no eric noted --> No evidence of hemolysis is noted, peripheral smear is wnl --> Hgb goal >7. Transfuse prn. --> continue on epo sq --> on iron # Congestive heart failure with acute decompensated heart failure. --> per cards management --> In tele unit --> on diuresis # Abnormal renal function, likely cardiorenal syndrome. --> Nephrology is following appreciate recs --> BRIDGETT kidneys with minimal fullness, seen by renal, echogenicity is wnl # History of cocaine abuse with current positive tox screen. --> recommend cessation # Hypertension with hypertensive urgency. --> On Norvasc 5 mg bid, Hydralazine,Imdur and Clonidine patch as needed --> Avoid beta-blockers for active cocaine us # Acute coronary syndrome/non-ST elevation myocardial infarction. --> per cards The date and time note entered does not reflect time and date patient was seen. GREATLY APPRECIATE CONSULTATION. Subjective Constitutional: Denies: no symptoms, chills, diaphoresis, fever, malaise, weakness, other HEENT: Denies: no symptoms, eye pain, blurred vision, tearing, double vision, ear pain, ear discharge, nose pain, nose congestion, throat pain, throat swelling, mouth pain, mouth swelling, other Cardiovascular: Denies: no symptoms, chest pain, edema, irregular heart rate, lightheadedness, palpitations, syncope, other Respiratory: Denies: no symptoms, cough, orthopnea, shortness of breath, SOB with excertion, SOB at rest, sputum, stridor, wheezing, other Gastrointestinal/Abdominal: Denies: no symptoms, abdomen distended, abdominal pain, black stools, tarry stools, blood in stool, constipated, diarrhea, difficulty swallowing, nausea, poor appetite, poor fluid intake, rectal bleeding , vomiting, other Genitourinary: Denies: no symptoms, burning, discharge, frequency, flank pain, hematuria, incontinence, pain, urgency, other Neurologic/Psychiatric: Denies: no symptoms, anxiety, depressed, emotional problems, headache, numbness, paresthesia, pre-existing deficit, seizure, tingling, tremors, weakness, other Endocrine: Denies: no symptoms, excessive sweating, flushing, intolerance to cold, intolerance to heat, increased hunger, increased thirst, increased urine, unexplained weight gain, unexplained weight loss, other Allergies: Coded Allergies: No Known Allergies (Unverified , 07/08/18) Subjective 07/12: no events, cr trending, h/h stable, on epo 07/14: transfuse one unit 07/13, diruresed, refused mendez, seen by cards, bp better 07/15 : Pt is seen in the room, awake and alert, S/P blood transfusion, refusing HD 07/16 : Pt is awake and resting in bed. waiting on sister to make HD decision, no events 07/17 Pt is seen in the room,awake and alert, appears to be agreeable for placement of dialysis cath and dialysis . 07/18: Pt is seen in the room, No CP or SOB. Had HD today. 07/19: Pt is awake and resting in bed. Denies pain, SOB or fevers and chills. Has HD scheduled for 07/20/18, currently stable. 07/20: received hand held nebulizer, no other events, no f.c 07/21 : Pt seen by bedside, continues on breathing treatment, HD 07/22/18, no events 07/22: pending snf placement and outpatient hd 07/23: awake and resting in bed. no acute events, waiting placement and outpatient HD 07/24: no major events, waiting placement, seen by gi, recs reviewed, no complaints, on epo 07/25: CXR for patient c/o sob. O2 2L via NC administered. patient is A/A/Ox4. patient BLE edematous 07/26: Continues on oxygen of 3L/min via N/C. no acute respiratory distress is noted. Permacath to right chest for HD is intact Objective Last 24 Hour Vital Signs Date Time Temp Pulse Resp B/P (MAP) Pulse Ox O2 Delivery O2 Flow Rate FiO2 07/26/18 12:47 82 20 99 Nasal Cannula 2.0 28 07/26/18 12:41 84 18 96 Nasal Cannula 2.0 28 07/26/18 12:00 97.3 94 24 157/86 (109) 94 07/26/18 12:00 92 07/26/18 12:00 Nasal Cannula 3.0 07/26/18 09:00 Nasal Cannula 3.0 07/26/18 08:18 97.8 88 21 154/95 (114) 93 07/26/18 07:37 85 07/26/18 07:18 80 20 99 Nasal Cannula 2.0 28 07/26/18 07:08 88 18 96 Nasal Cannula 2.0 28 07/26/18 07:08 Nasal Cannula 2.0 28 07/26/18 07:08 97 Nasal Cannula 2.0 28 07/26/18 07:06 88 20 Nasal Cannula 2.0 28 07/26/18 05:12 80 18 98 Facial 40 07/26/18 04:00 98.2 80 16 144/91 (108) 100 07/26/18 03:14 84 18 98 Facial 40 07/26/18 01:51 80 23 96 Facial 40 07/26/18 00:00 98.9 87 18 128/83 (98) 100 07/25/18 22:33 87 18 98 Facial 40 07/25/18 21:45 87 125/79 07/25/18 21:00 Nasal Cannula 3.0 07/25/18 20:10 87 16 98 Bi-pap 40 07/25/18 20:00 97.9 87 16 143/90 (107) 99 07/25/18 19:57 Bi-pap 40 07/25/18 19:57 98 Bi-pap 40 07/25/18 19:57 83 16 98 Facial 40 07/25/18 19:57 83 21 98 Bi-pap 40 07/25/18 17:32 125/79 07/25/18 16:30 Nasal Cannula 3.0 07/25/18 16:00 98.4 86 20 125/79 (94) 93 07/25/18 15:55 86 Intake and Output 07/25/18 07/26/18 19:00 07:00 Intake Total 1280 ml 220 ml Output Total 1700 ml 400 ml Balance -420 ml -180 ml Intake Oral 1280 ml 220 ml Output Urine Total 1700 ml 400 ml # Voids 2 Laboratory Tests 07/25/18 18:00: Troponin I 0.033 07/26/18 03:25: Troponin I 0.032, White Blood Count 4.9, Red Blood Count 2.83L, Hemoglobin 8.7L , Hematocrit 28.6L, Mean Corpuscular Volume 101H, Mean Corpuscular Hemoglobin 30.8, Mean Corpuscular Hemoglobin Concent 30.6L, Red Cell Distribution Width 13.7, Platelet Count 240, Mean Platelet Volume 6.7, Neutrophils (%) (Auto) 61.1 , Lymphocytes (%) (Auto) 19.6L, Monocytes (%) (Auto) 12.2H, Eosinophils (%) ( Auto) 6.6H, Basophils (%) (Auto) 0.5, Sodium Level 137, Potassium Level 5.0, Chloride Level 102, Carbon Dioxide Level 28, Anion Gap 7, Blood Urea Nitrogen 52H, Creatinine 6.3H, Estimat Glomerular Filtration Rate 11.2, Glucose Level 108H, Uric Acid 5.2, Calcium Level 8.8, Phosphorus Level 3.9, Magnesium Level 1.7L, Total Bilirubin 0.2, Gamma Glutamyl Transpeptidase 118H, Aspartate Amino Transf (AST/SGOT) 25, Alanine Aminotransferase (ALT/SGPT) 37, Alkaline Phosphatase 153H, Pro-B-Type Natriuretic Peptide 34623W, Total Protein 6.8, Albumin 2.6L, Globulin 4.2, Albumin/Globulin Ratio 0.6L Height (Feet): 5 Height (Inches): 11.00 Weight (Pounds): 221 Objective Physical Exam General Appearance: A+O x2 NAD HEENT: normocephalic, atraumatic Neck: non-tender, normal alignment Respiratory/Chest: chest wall non-tender, lungs clear Cardiovascular/Chest: normal peripheral pulses, normal rate Abdomen: normal bowel sounds, non tender Extremities: normal range of motion Shane Mary MD Jul 26, 2018 15:24
--- NOTE | 2018-07-26 16:00 | Nephrology Progress Note ---
Assessment/Plan Problem List: (1) Renal failure (ARF), acute on chronic (2) Cocaine abuse (3) Acute exacerbation of CHF (congestive heart failure) (4) Hypertensive cardiomegaly with heart failure (5) Volume overload Assessment Acute on Chronic renal failure Anemia Elevated troponin Hypertensive renal and heart disease Cocaine abuse Cardiomyopathy Plan next HD 07/26 currently in process aim to UF 3 liters readjust bp meds Dc planning increase Neurontin transfuse one unit 07/[address] Moura 2D Echo 55% ej fx BRIDGETT kidneys * Mild fullness of the bilateral renal collecting systems without radiographically appreciable stone and observed bilateral ureteral jets. Findings may be related to mild bladder distention. Consider repeat exam after bladder decompression. monitor renal parameters Avoid nephrotoxics renal diet flomax Subjective ROS Limited/Unobtainable: No Constitutional: Reports: other - to [facility] for SOB Objective Objective Last 24 Hour Vital Signs Date Time Temp Pulse Resp B/P (MAP) Pulse Ox O2 Delivery O2 Flow Rate FiO2 07/26/18 12:47 82 20 99 Nasal Cannula 2.0 28 07/26/18 12:41 84 18 96 Nasal Cannula 2.0 28 07/26/18 12:00 97.3 94 24 157/86 (109) 94 07/26/18 12:00 92 07/26/18 12:00 Nasal Cannula 3.0 07/26/18 09:00 Nasal Cannula 3.0 07/26/18 08:18 97.8 88 21 154/95 (114) 93 07/26/18 07:37 85 07/26/18 07:18 80 20 99 Nasal Cannula 2.0 28 07/26/18 07:08 88 18 96 Nasal Cannula 2.0 28 07/26/18 07:08 Nasal Cannula 2.0 28 07/26/18 07:08 97 Nasal Cannula 2.0 28 07/26/18 07:06 88 20 Nasal Cannula 2.0 28 07/26/18 05:12 80 18 98 Facial 40 07/26/18 04:00 98.2 80 16 144/91 (108) 100 07/26/18 03:14 84 18 98 Facial 40 07/26/18 01:51 80 23 96 Facial 40 07/26/18 00:00 98.9 87 18 128/83 (98) 100 07/25/18 22:33 87 18 98 Facial 40 07/25/18 21:45 87 125/79 07/25/18 21:00 Nasal Cannula 3.0 07/25/18 20:10 87 16 98 Bi-pap 40 07/25/18 20:00 97.9 87 16 143/90 (107) 99 07/25/18 19:57 Bi-pap 40 07/25/18 19:57 98 Bi-pap 40 07/25/18 19:57 83 16 98 Facial 40 07/25/18 19:57 83 21 98 Bi-pap 40 07/25/18 17:32 125/79 07/25/18 16:30 Nasal Cannula 3.0 07/25/18 16:00 98.4 86 20 125/79 (94) 93 Intake and Output 07/25/18 07/26/18 19:00 07:00 Intake Total 1280 ml 220 ml Output Total 1700 ml 400 ml Balance -420 ml -180 ml Intake Oral 1280 ml 220 ml Output Urine Total 1700 ml 400 ml # Voids 2 Laboratory Tests 07/25/18 18:00: Troponin I 0.033 07/26/18 03:25: Troponin I 0.032, White Blood Count 4.9, Red Blood Count 2.83L, Hemoglobin 8.7L , Hematocrit 28.6L, Mean Corpuscular Volume 101H, Mean Corpuscular Hemoglobin 30.8, Mean Corpuscular Hemoglobin Concent 30.6L, Red Cell Distribution Width 13.7, Platelet Count 240, Mean Platelet Volume 6.7, Neutrophils (%) (Auto) 61.1 , Lymphocytes (%) (Auto) 19.6L, Monocytes (%) (Auto) 12.2H, Eosinophils (%) ( Auto) 6.6H, Basophils (%) (Auto) 0.5, Sodium Level 137, Potassium Level 5.0, Chloride Level 102, Carbon Dioxide Level 28, Anion Gap 7, Blood Urea Nitrogen 52H, Creatinine 6.3H, Estimat Glomerular Filtration Rate 11.2, Glucose Level 108H, Uric Acid 5.2, Calcium Level 8.8, Phosphorus Level 3.9, Magnesium Level 1.7L, Total Bilirubin 0.2, Gamma Glutamyl Transpeptidase 118H, Aspartate Amino Transf (AST/SGOT) 25, Alanine Aminotransferase (ALT/SGPT) 37, Alkaline Phosphatase 153H, Pro-B-Type Natriuretic Peptide 55524S, Total Protein 6.8, Albumin 2.6L, Globulin 4.2, Albumin/Globulin Ratio 0.6L Height (Feet): 5 Height (Inches): 11.00 Weight (Pounds): 221 Objective no change Richar Cm MD Jul 26, 2018 16:00
[2018-07-26] MEDS ORDERED: Tubing IV Secondary IV ONE (16:29)
[2018-07-26] MEDS ORDERED: Dyna-Hex 2% Top Sol 2oz TOPIC SCH (20:00)
[2018-07-26] MEDS: Tamsulosin 0.4mg cap ORAL SCH (20:20)
[2018-07-26] MEDS: Miralax 17gm pkt ORAL SCH (20:20)
[2018-07-27] MEDS: HYDROcodone/Acetamin 10/325 tab ORAL PRN ×4 (00:37→22:10)
[2018-07-27 04:00] VITALS: BP 148/76
[2018-07-27 06:34] LABS: BASOPHILS % (AUTO) 0.8 % (0.0-2.0); EOSINOPHILS % (AUTO) 5.8 % (0.0-3.0); HEMATOCRIT 28.8 % (42.0-52.0); LYMPHOCYTES % (AUTO) 14.8 % (20.0-45.0); MEAN CORPUSCULAR VOLUME 101 FL (80-99); MONOCYTES % (AUTO) 13.2 % (1.0-10.0); NEUTROPHILS % (AUTO) 65.4 % (45.0-75.0); PLATELET COUNT 216 K/UL (150-450); RED BLOOD COUNT 2.85 M/UL (4.70-6.10); RED CELL DISTRIBUTION WIDTH 14.1 % (11.6-14.8)
[2018-07-27 06:56] LABS: ALANINE AMINOTRANSFERASE 34 U/L (12-78); ALBUMIN 2.8 G/DL (3.4-5.0); ALBUMIN/GLOBULIN RATIO 0.7 (1.0-2.7); ALKALINE PHOSPHATASE 159 U/L (46-116); ANION GAP 8 mmol/L (5-15); ASPARTATE AMINO TRANSFERASE 20 U/L (15-37); BILIRUBIN,TOTAL 0.2 MG/DL (0.2-1.0); BLOOD UREA NITROGEN 38 mg/dL (7-18); CALCIUM 8.8 MG/DL (8.5-10.1); CARBON DIOXIDE 29 MMOL/L (21-32); CHLORIDE 101 MMOL/L (98-107); CREATININE 5.4 MG/DL (0.55-1.30); PHOSPHORUS 3.3 MG/DL (2.5-4.9); POTASSIUM 4.3 MMOL/L (3.5-5.1); SODIUM 138 MMOL/L (136-145)
[2018-07-27] MEDS: Albuterol/Ipratropium 3ml neb HHN SCH ×3 (07:00→21:51)
[2018-07-27 08:00] VITALS: BP 155/96
[2018-07-27] MEDS: dilTIAZem HCl CD 240mg cap ORAL SCH (09:09)
[2018-07-27] MEDS: Imdur 30mg tab ORAL SCH (09:09)
[2018-07-27] MEDS: Aspirin Baby 81mg ORAL SCH (09:09)
[2018-07-27] MEDS: Docusate 100mg cap ORAL SCH ×3 (09:09→17:29)
[2018-07-27] MEDS: Lisinopril 20mg tab ORAL SCH ×2 (09:10→17:29)
[2018-07-27] MEDS: Heparin 5000 units/ml inj SUBQ SCH ×2 (09:16→21:10)
--- NOTE | 2018-07-27 11:34 | Nephrology Progress Note ---
Assessment/Plan Problem List: (1) Renal failure (ARF), acute on chronic (2) Cocaine abuse (3) Acute exacerbation of CHF (congestive heart failure) (4) Hypertensive cardiomegaly with heart failure (5) Volume overload Assessment Acute on Chronic renal failure Anemia Elevated troponin Hypertensive renal and heart disease Cocaine abuse Cardiomyopathy Plan next HD 07/28 readjust bp meds Dc planning increase Neurontin transfuse one unit 07/[address] Moura 2D Echo 55% ej fx BRIDGETT kidneys * Mild fullness of the bilateral renal collecting systems without radiographically appreciable stone and observed bilateral ureteral jets. Findings may be related to mild bladder distention. Consider repeat exam after bladder decompression. monitor renal parameters Avoid nephrotoxics renal diet flomax Subjective ROS Limited/Unobtainable: No Constitutional: Reports: malaise Objective Objective Last 24 Hour Vital Signs Date Time Temp Pulse Resp B/P (MAP) Pulse Ox O2 Delivery O2 Flow Rate FiO2 07/27/18 09:10 96 155/96 07/27/18 09:10 155/96 07/27/18 09:09 155/96 07/27/18 09:09 96 155/96 07/27/18 09:00 Room Air 07/27/18 08:00 97.7 96 18 155/96 (115) 98 07/27/18 07:00 98 Nasal Cannula 2.0 28 07/27/18 07:00 Nasal Cannula 2.0 28 07/27/18 07:00 Nasal Cannula 2.0 28 07/27/18 07:00 Nasal Cannula 2.0 28 07/27/18 04:00 98.1 90 18 148/76 (100) 98 07/26/18 23:57 98.6 95 18 134/87 (103) 97 07/26/18 21:11 73 22 99 Nasal Cannula 2.0 28 07/26/18 20:59 71 16 97 Nasal Cannula 2.0 28 07/26/18 20:59 Nasal Cannula 2.0 28 07/26/18 20:59 71 16 97 Facial 40 07/26/18 20:59 97 Nasal Cannula 2.0 28 07/26/18 20:20 95 155/75 07/26/18 20:00 104 07/26/18 20:00 97.7 104 20 155/90 (111) 95 07/26/18 20:00 100 07/26/18 20:00 Room Air 07/26/18 17:33 Nasal Cannula 07/26/18 17:30 Nasal Cannula 3.0 07/26/18 17:17 140/86 07/26/18 16:24 2.0 28 07/26/18 16:24 Room Air 2.0 07/26/18 16:18 89 22 99 Nasal Cannula 2.0 28 07/26/18 16:08 81 19 97 Nasal Cannula 2.0 28 07/26/18 16:00 Nasal Cannula 3.0 07/26/18 16:00 96 07/26/18 16:00 97.3 97 20 140/86 (104) 97 07/26/18 12:47 82 20 99 Nasal Cannula 2.0 28 07/26/18 12:41 84 18 96 Nasal Cannula 2.0 28 07/26/18 12:00 97.3 94 24 157/86 (109) 94 07/26/18 12:00 92 07/26/18 12:00 Nasal Cannula 3.0 Intake and Output 07/26/18 07/27/18 19:00 07:00 Intake Total 3440 ml 480 ml Output Total 3550 ml 250 ml Balance -110 ml 230 ml Intake Oral 440 ml 480 ml Hemodialysis 3000 ml Output Urine Total 550 ml 250 ml Hemodialysis UF 3000 ml # Voids 3 # Bowel Movements 1 Laboratory Tests 07/27/18 04:40: White Blood Count 7.0, Red Blood Count 2.85L, Hemoglobin 9.0L, Hematocrit 28.8L , Mean Corpuscular Volume 101H, Mean Corpuscular Hemoglobin 31.6H, Mean Corpuscular Hemoglobin Concent 31.3L, Red Cell Distribution Width 14.1, Platelet Count 216, Mean Platelet Volume 6.4L, Neutrophils (%) (Auto) 65.4, Lymphocytes (%) (Auto) 14.8L, Monocytes (%) (Auto) 13.2H, Eosinophils (%) (Auto ) 5.8H, Basophils (%) (Auto) 0.8, Sodium Level 138, Potassium Level 4.3, Chloride Level 101, Carbon Dioxide Level 29, Anion Gap 8, Blood Urea Nitrogen 38H, Creatinine 5.4H, Estimat Glomerular Filtration Rate 13.3, Glucose Level 116H, Uric Acid 4.1, Calcium Level 8.8, Phosphorus Level 3.3, Magnesium Level 1.5L, Total Bilirubin 0.2, Aspartate Amino Transf (AST/SGOT) 20, Alanine Aminotransferase (ALT/SGPT) 34, Alkaline Phosphatase 159H, Troponin I 0.047, C- Reactive Protein, Quantitative 5.3H, Pro-B-Type Natriuretic Peptide 9881H, Total Protein 7.1, Albumin 2.8L, Globulin 4.3, Albumin/Globulin Ratio 0.7L Height (Feet): 5 Height (Inches): 11.00 Weight (Pounds): 204 General Appearance: no apparent distress Respiratory/Chest: decreased breath sounds Abdomen: soft Objective no change Richar Cm MD Jul 27, 2018 11:34
[2018-07-27 12:00] VITALS: BP 146/97
--- NOTE | 2018-07-27 12:04 | Pulmonology Progress Note ---
Assessment/Plan Problems: (1) Acute exacerbation of CHF (congestive heart failure) (2) Hypertensive cardiomegaly with heart failure (3) ACS (acute coronary syndrome) (4) Cocaine abuse (5) ARF (acute renal failure) (6) DDD (degenerative disc disease) (7) Epistaxis (8) Hypercapnic respiratory failure Assessment/Plan ASSESSMENT: The patient is a 58-year-old male with history of cocaine and tobacco abuse, congestive heart failure, and renal impairment, presenting with decompensated heart failure and abnormal renal function with marked uremia. He has previously been told he needs dialysis. He is now being admitted for acute coronary syndrome and likely need for dialysis. PROBLEM LIST: 1. Congestive heart failure with acute decompensated heart failure. 2. Abnormal renal function, likely cardiorenal syndrome now on HD 3. History of cocaine abuse with current positive tox screen. 4. Anemia/DARSHANA 5. Hypertension with hypertensive urgency. 6. Acute coronary syndrome/non-ST elevation myocardial infarction. 7. Acute on chronic LBP with radiculopathy ---> DDD/SS TREATMENT PLAN: -BiPAP 12/5 qHS and PRN - ENCOURAGE COMPLIANCE -Titrate FiO2 -RTC and PRN DUOnebs -HD per renal with UF as able -Control BP -F/U cards and renal recs -F/U heme recs -F/U GI recs ---> plan for outpatient EGD/colo -DVT Px: hep SQ -Pain control/supportive care - minimize narcotics/sedatives -F/U pain management recs -Appreciate psych eval, has capacity, F/U recs -SW assistance in placement Subjective Allergies: Coded Allergies: No Known Allergies (Unverified , 07/08/18) Subjective ROHINI AFVSS, stable O2 needs Feels better, less SOB, no CP, no F/C Objective Last 24 Hour Vital Signs Date Time Temp Pulse Resp B/P (MAP) Pulse Ox O2 Delivery O2 Flow Rate FiO2 07/27/18 09:10 96 155/96 07/27/18 09:10 155/96 07/27/18 09:09 155/96 07/27/18 09:09 96 155/96 07/27/18 09:00 Room Air 07/27/18 08:00 97.7 96 18 155/96 (115) 98 07/27/18 07:00 98 Nasal Cannula 2.0 28 1/14/19 07:00 Nasal Cannula 2.0 28 07/27/18 07:00 Nasal Cannula 2.0 28 07/27/18 07:00 Nasal Cannula 2.0 28 07/27/18 04:00 98.1 90 18 148/76 (100) 98 07/26/18 23:57 98.6 95 18 134/87 (103) 97 07/26/18 21:11 73 22 99 Nasal Cannula 2.0 28 07/26/18 20:59 71 16 97 Nasal Cannula 2.0 28 07/26/18 20:59 Nasal Cannula 2.0 28 07/26/18 20:59 71 16 97 Facial 40 07/26/18 20:59 97 Nasal Cannula 2.0 28 07/26/18 20:20 95 155/75 07/26/18 20:00 104 07/26/18 20:00 97.7 104 20 155/90 (111) 95 07/26/18 20:00 100 07/26/18 20:00 Room Air 07/26/18 17:33 Nasal Cannula 07/26/18 17:30 Nasal Cannula 3.0 07/26/18 17:17 140/86 07/26/18 16:24 2.0 28 07/26/18 16:24 Room Air 2.0 07/26/18 16:18 89 22 99 Nasal Cannula 2.0 28 07/26/18 16:08 81 19 97 Nasal Cannula 2.0 28 07/26/18 16:00 Nasal Cannula 3.0 07/26/18 16:00 96 07/26/18 16:00 97.3 97 20 140/86 (104) 97 07/26/18 12:47 82 20 99 Nasal Cannula 2.0 28 07/26/18 12:41 84 18 96 Nasal Cannula 2.0 28 Intake and Output 07/26/18 07/27/18 19:00 07:00 Intake Total 3440 ml 480 ml Output Total 3550 ml 250 ml Balance -110 ml 230 ml Intake Oral 440 ml 480 ml Hemodialysis 3000 ml Output Urine Total 550 ml 250 ml Hemodialysis UF 3000 ml # Voids 3 # Bowel Movements 1 General Appearance: no acute distress, cachetic HEENT: normocephalic, atraumatic, anicteric, mucous membranes moist Respiratory/Chest: chest wall non-tender, lungs clear, normal breath sounds, no respiratory distress, no accessory muscle use Cardiovascular: normal peripheral pulses, normal rate, regular rhythm Abdomen: normal bowel sounds, soft, non tender, no organomegaly, non distended , no mass Extremities: no cyanosis, no clubbing, other - 1+ STEPHANI Laboratory Tests 07/27/18 04:40: White Blood Count 7.0, Red Blood Count 2.85L, Hemoglobin 9.0L, Hematocrit 28.8L , Mean Corpuscular Volume 101H, Mean Corpuscular Hemoglobin 31.6H, Mean Corpuscular Hemoglobin Concent 31.3L, Red Cell Distribution Width 14.1, Platelet Count 216, Mean Platelet Volume 6.4L, Neutrophils (%) (Auto) 65.4, Lymphocytes (%) (Auto) 14.8L, Monocytes (%) (Auto) 13.2H, Eosinophils (%) (Auto ) 5.8H, Basophils (%) (Auto) 0.8, Sodium Level 138, Potassium Level 4.3, Chloride Level 101, Carbon Dioxide Level 29, Anion Gap 8, Blood Urea Nitrogen 38H, Creatinine 5.4H, Estimat Glomerular Filtration Rate 13.3, Glucose Level 116H, Uric Acid 4.1, Calcium Level 8.8, Phosphorus Level 3.3, Magnesium Level 1.5L, Total Bilirubin 0.2, Aspartate Amino Transf (AST/SGOT) 20, Alanine Aminotransferase (ALT/SGPT) 34, Alkaline Phosphatase 159H, Troponin I 0.047, C- Reactive Protein, Quantitative 5.3H, Pro-B-Type Natriuretic Peptide 9881H, Total Protein 7.1, Albumin 2.8L, Globulin 4.3, Albumin/Globulin Ratio 0.7L Current Medications Medications (Trade) Dose Ordered Sig/Harish Route PRN Reason Start Time Stop Time Status Last Admin Dose Admin Acetaminophen (Tylenol) 650 mg Q4H PRN ORAL Mild Pain/Temp > 100.5 07/26/18 22:00 08/25/18 21:59 07/27/18 02:11 Acetaminophen/ Hydrocodone Bitart ([place] 10/325) 1 tab Q4H PRN ORAL Severe Pain (Pain Scale 7-10) 07/27/18 00:30 07/27/18 16:29 07/27/18 05:35 Albuterol/ Ipratropium (Albuterol/ Ipratropium) 3 ml Q4H PRN HHN Shortness of Breath 07/26/18 22:00 07/31/18 21:59 Albuterol/ Ipratropium (Albuterol/ Ipratropium) 3 ml TIDRT HHN 07/27/18 07:00 07/28/18 18:59 Aspirin (ASA) 81 mg DAILY ORAL 07/27/18 09:00 08/08/18 08:59 07/27/18 09:09 Chlorhexidine Gluconate (Laurel-Hex 2%) 1 applic DAILY@2000 TOPIC 07/27/18 20:00 08/25/18 19:59 Clonidine HCl (Catapres Tab) 0.1 mg Q4H PRN ORAL bp over 165 syst 07/26/18 22:00 08/25/18 21:59 Dextrose (Dextrose 50%) 25 ml Q30M PRN IV Hypoglycemia 07/26/18 22:00 08/07/18 16:29 Dextrose (Dextrose 50%) 50 ml Q30M PRN IV Hypoglycemia 07/26/18 22:00 08/07/18 16:29 Diltiazem HCl (Cardizem CD) 240 mg DAILY ORAL 07/27/18 09:00 08/25/18 08:59 07/27/18 09:09 Diphenhydramine HCl (Benadryl) 25 mg Q6H PRN ORAL Itching/Pruritis 07/26/18 22:30 08/07/18 16:29 Docusate Sodium (Colace) 100 mg THREE TIMES A DAY ORAL 07/27/18 09:00 08/20/18 17:59 07/27/18 09:09 Epoetin Juan Pablo (Procrit (for non ESRD use)) 10,000 units FRI-FRI-FRI SUBQ 07/27/18 21:00 08/12/18 21:59 Gabapentin (Neurontin) 300 mg THREE TIMES A DAY ORAL 07/27/18 09:00 08/17/18 17:59 07/27/18 09:10 Heparin Sodium (Porcine) (Heparin 5000 units/ml) 5,000 units EVERY 12 HOURS SUBQ 07/27/18 09:00 08/14/18 21:59 07/27/18 09:16 Isosorbide Mononitrate (Imdur) 60 mg DAILY ORAL 07/27/18 09:00 08/11/18 08:59 07/27/18 09:09 Lisinopril (Prinivil) 20 mg BID ORAL 07/27/18 09:00 08/19/18 08:59 07/27/18 09:10 Metoprolol Tartrate (Lopressor) 100 mg Q12HR ORAL 07/27/18 09:00 08/22/18 20:59 07/27/18 09:10 Pantoprazole (Protonix) 40 mg DAILY ORAL 07/27/18 09:00 08/10/18 21:59 07/27/18 09:09 Polyethylene Glycol (Miralax) 17 gm BEDTIME ORAL 07/27/18 21:00 08/20/18 20:59 Sevelamer Carbonate (Renvela) 800 mg THREE TIMES A DAY ORAL 07/27/18 09:00 08/08/18 17:59 07/27/18 09:09 Tamsulosin HCl (Flomax) 0.4 mg QHS ORAL 07/27/18 21:00 08/09/18 12:52 Edgard Webb MD Jul 27, 2018 12:04
--- NOTE | 2018-07-27 12:37 | GI Progress Note ---
Assessment/Plan Problems: (1) Macrocytic anemia ICD Codes: D53.9 - Nutritional anemia, unspecified SNOMED: 24067396 (2) Iron deficiency ICD Codes: E61.1 - Iron deficiency SNOMED: 45522432 (3) Constipation ICD Codes: K59.00 - Constipation, unspecified SNOMED: 51820467 (4) Cocaine abuse ICD Codes: F14.10 - Cocaine abuse, uncomplicated SNOMED: 14638038 (5) Pancreatitis ICD Codes: K85.90 - Acute pancreatitis without necrosis or infection, unspecified SNOMED: 61204188 Status: stable, unchanged Status Narrative Discussed with Dr. Shea. Assessment/Plan Pancreatitis now resolved Hepatitis panel negative history of hernia repair Patient will require cardiac clearance prior to any GI procedures, will consider pending work up OB stool r/o GI bleed monitor H&H, prn transfusions bowel regime ppi venofer renal diet fu labs Outpatient GI procedures The patient was seen and examined at bedside and all new and available data was reviewed in the patients chart. I agree with the above findings, impression and plan. (Patient seen earlier today. Signature stamp does not reflect patient encounter time.). - Nikolas Shea MD Subjective Subjective had BM has complaint of lower abdominal pain, believes there is problem with his hernia mesh Objective Last 24 Hour Vital Signs Date Time Temp Pulse Resp B/P (MAP) Pulse Ox O2 Delivery O2 Flow Rate FiO2 07/27/18 09:10 96 155/96 07/27/18 09:10 155/96 07/27/18 09:09 155/96 07/27/18 09:09 96 155/96 07/27/18 09:00 Room Air 07/27/18 08:00 97.7 96 18 155/96 (115) 98 07/27/18 07:00 98 Nasal Cannula 2.0 28 07/27/18 07:00 Nasal Cannula 2.0 28 07/27/18 07:00 Nasal Cannula 2.0 28 07/27/18 07:00 Nasal Cannula 2.0 28 07/27/18 04:00 98.1 90 18 148/76 (100) 98 07/26/18 23:57 98.6 95 18 134/87 (103) 97 07/26/18 21:11 73 22 99 Nasal Cannula 2.0 28 07/26/18 20:59 71 16 97 Nasal Cannula 2.0 28 07/26/18 20:59 Nasal Cannula 2.0 28 07/26/18 20:59 71 16 97 Facial 40 07/26/18 20:59 97 Nasal Cannula 2.0 28 07/26/18 20:20 95 155/75 07/26/18 20:00 104 07/26/18 20:00 97.7 104 20 155/90 (111) 95 07/26/18 20:00 100 07/26/18 20:00 Room Air 07/26/18 17:33 Nasal Cannula 07/26/18 17:30 Nasal Cannula 3.0 07/26/18 17:17 140/86 07/26/18 16:24 2.0 28 07/26/18 16:24 Room Air 2.0 07/26/18 16:18 89 22 99 Nasal Cannula 2.0 28 07/26/18 16:08 81 19 97 Nasal Cannula 2.0 28 07/26/18 16:00 Nasal Cannula 3.0 07/26/18 16:00 96 07/26/18 16:00 97.3 97 20 140/86 (104) 97 07/26/18 12:47 82 20 99 Nasal Cannula 2.0 28 07/26/18 12:41 84 18 96 Nasal Cannula 2.0 28 Intake and Output 07/26/18 07/27/18 19:00 07:00 Intake Total 3440 ml 480 ml Output Total 3550 ml 250 ml Balance -110 ml 230 ml Intake Oral 440 ml 480 ml Hemodialysis 3000 ml Output Urine Total 550 ml 250 ml Hemodialysis UF 3000 ml # Voids 3 # Bowel Movements 1 Laboratory Tests Test 07/27/18 04:40 White Blood Count 7.0 K/UL (4.8-10.8) Red Blood Count 2.85 M/UL (4.70-6.10) L Hemoglobin 9.0 G/DL (14.2-18.0) L Hematocrit 28.8 % (42.0-52.0) L Mean Corpuscular Volume 101 FL (80-99) H Mean Corpuscular Hemoglobin 31.6 PG (27.0-31.0) H Mean Corpuscular Hemoglobin Concent 31.3 G/DL (32.0-36.0) L Red Cell Distribution Width 14.1 % (11.6-14.8) Platelet Count 216 K/UL (150-450) Mean Platelet Volume 6.4 FL (6.5-10.1) L Neutrophils (%) (Auto) 65.4 % (45.0-75.0) Lymphocytes (%) (Auto) 14.8 % (20.0-45.0) L Monocytes (%) (Auto) 13.2 % (1.0-10.0) H Eosinophils (%) (Auto) 5.8 % (0.0-3.0) H Basophils (%) (Auto) 0.8 % (0.0-2.0) Sodium Level 138 MMOL/L (136-145) Potassium Level 4.3 MMOL/L (3.5-5.1) Chloride Level 101 MMOL/L (98-107) Carbon Dioxide Level 29 MMOL/L (21-32) Anion Gap 8 mmol/L (5-15) Blood Urea Nitrogen 38 mg/dL (7-18) H Creatinine 5.4 MG/DL (0.55-1.30) H Estimat Glomerular Filtration Rate 13.3 mL/min (>60) Glucose Level 116 MG/DL (74-106) H Uric Acid 4.1 MG/DL (2.6-7.2) Calcium Level 8.8 MG/DL (8.5-10.1) Phosphorus Level 3.3 MG/DL (2.5-4.9) Magnesium Level 1.5 MG/DL (1.8-2.4) L Total Bilirubin 0.2 MG/DL (0.2-1.0) Aspartate Amino Transf (AST/SGOT) 20 U/L (15-37) Alanine Aminotransferase (ALT/SGPT) 34 U/L (12-78) Alkaline Phosphatase 159 U/L (46-116) H Troponin I 0.047 ng/mL (0.000-0.056) C-Reactive Protein, Quantitative 5.3 mg/dL (0.00-0.90) H Pro-B-Type Natriuretic Peptide 9881 pg/mL (0-125) H Total Protein 7.1 G/DL (6.4-8.2) Albumin 2.8 G/DL (3.4-5.0) L Globulin 4.3 g/dL Albumin/Globulin Ratio 0.7 (1.0-2.7) L Height (Feet): 5 Height (Inches): 11.00 Weight (Pounds): 204 General Appearance: WD/WN, no apparent distress, alert Cardiovascular: normal rate Respiratory/Chest: normal breath sounds, no respiratory distress Abdominal Exam: normal bowel sounds, non tender, soft Extremities: normal range of motion, non-tender Daja Murdock NP Jul 27, 2018 12:37
--- NOTE | 2018-07-27 14:59 | General Progress Note ---
Assessment/Plan Assessment/Plan # Anemia of chronic disease, multifactorial, grace on ckd --> Anemia w/u has been reviewed, no eric noted --> No evidence of hemolysis is noted, peripheral smear is wnl --> Hgb goal >7. Transfuse prn. --> continue on epo sq --> on iron # Congestive heart failure with acute decompensated heart failure. --> per cards management --> In tele unit --> on diuresis # Abnormal renal function, likely cardiorenal syndrome. --> Nephrology is following appreciate recs --> BRIDGETT kidneys with minimal fullness, seen by renal, echogenicity is wnl # History of cocaine abuse with current positive tox screen. --> recommend cessation # Hypertension with hypertensive urgency. --> On Norvasc 5 mg bid, Hydralazine,Imdur and Clonidine patch as needed --> Avoid beta-blockers for active cocaine us # Acute coronary syndrome/non-ST elevation myocardial infarction. --> per cards The date and time note entered does not reflect time and date patient was seen. GREATLY APPRECIATE CONSULTATION. Subjective ROS Limited/Unobtainable: No Constitutional: Denies: no symptoms, chills, diaphoresis, fever, malaise, weakness, other HEENT: Denies: no symptoms, eye pain, blurred vision, tearing, double vision, ear pain, ear discharge, nose pain, nose congestion, throat pain, throat swelling, mouth pain, mouth swelling, other Cardiovascular: Denies: no symptoms, chest pain, edema, irregular heart rate, lightheadedness, palpitations, syncope, other Respiratory: Denies: no symptoms, cough, orthopnea, shortness of breath, SOB with excertion, SOB at rest, sputum, stridor, wheezing, other Gastrointestinal/Abdominal: Denies: no symptoms, abdomen distended, abdominal pain, black stools, tarry stools, blood in stool, constipated, diarrhea, difficulty swallowing, nausea, poor appetite, poor fluid intake, rectal bleeding , vomiting, other Genitourinary: Denies: no symptoms, burning, discharge, frequency, flank pain, hematuria, incontinence, pain, urgency, other Neurologic/Psychiatric: Denies: no symptoms, anxiety, depressed, emotional problems, headache, numbness, paresthesia, pre-existing deficit, seizure, tingling, tremors, weakness, other Endocrine: Denies: no symptoms, excessive sweating, flushing, intolerance to cold, intolerance to heat, increased hunger, increased thirst, increased urine, unexplained weight gain, unexplained weight loss, other Hematologic/Lymphatic: Denies: no symptoms, anemia, easy bleeding, easy bruising, other Allergies: Coded Allergies: No Known Allergies (Unverified , 07/08/18) Subjective 07/12: no events, cr trending, h/h stable, on epo 07/14: transfuse one unit 07/13, diruresed, refused mendez, seen by cards, bp better 07/15 : Pt is seen in the room, awake and alert, S/P blood transfusion, refusing HD 07/16 : Pt is awake and resting in bed. waiting on sister to make HD decision, no events 07/17 Pt is seen in the room,awake and alert, appears to be agreeable for placement of dialysis cath and dialysis . 07/18: Pt is seen in the room, No CP or SOB. Had HD today. 07/19: Pt is awake and resting in bed. Denies pain, SOB or fevers and chills. Has HD scheduled for 07/20/18, currently stable. 07/20: received hand held nebulizer, no other events, no f.c 07/21 : Pt seen by bedside, continues on breathing treatment, HD 07/22/18, no events 07/22: pending snf placement and outpatient hd 07/23: awake and resting in bed. no acute events, waiting placement and outpatient HD 07/24: no major events, waiting placement, seen by gi, recs reviewed, no complaints, on epo 07/25: CXR for patient c/o sob. O2 2L via NC administered. patient is A/A/Ox4. patient BLE edematous 07/26: Continues on oxygen of 3L/min via N/C. no acute respiratory distress is noted. Permacath to right chest for HD is intact 07/27: awake and comfortable, alert and oriented , next HD 07/28 Objective Last 24 Hour Vital Signs Date Time Temp Pulse Resp B/P (MAP) Pulse Ox O2 Delivery O2 Flow Rate FiO2 07/27/18 13:04 86 20 100 Nasal Cannula 2.0 28 07/27/18 12:56 83 20 95 Nasal Cannula 2.0 28 07/27/18 12:00 98.9 79 18 146/97 (113) 97 07/27/18 09:10 96 155/96 07/27/18 09:10 155/96 07/27/18 09:09 155/96 07/27/18 09:09 96 155/96 07/27/18 09:00 Room Air 07/27/18 08:00 97.7 96 18 155/96 (115) 98 07/27/18 07:00 98 Nasal Cannula 2.0 28 07/27/18 07:00 Nasal Cannula 2.0 28 07/27/18 07:00 Nasal Cannula 2.0 28 07/27/18 07:00 Nasal Cannula 2.0 28 07/27/18 04:00 98.1 90 18 148/76 (100) 98 07/26/18 23:57 98.6 95 18 134/87 (103) 97 07/26/18 21:11 73 22 99 Nasal Cannula 2.0 28 07/26/18 20:59 71 16 97 Nasal Cannula 2.0 28 07/26/18 20:59 Nasal Cannula 2.0 28 07/26/18 20:59 71 16 97 Facial 40 07/26/18 20:59 97 Nasal Cannula 2.0 28 07/26/18 20:20 95 155/75 07/26/18 20:00 104 07/26/18 20:00 97.7 104 20 155/90 (111) 95 07/26/18 20:00 100 07/26/18 20:00 Room Air 07/26/18 17:33 Nasal Cannula 07/26/18 17:30 Nasal Cannula 3.0 07/26/18 17:17 140/86 07/26/18 16:24 2.0 28 07/26/18 16:24 Room Air 2.0 07/26/18 16:18 89 22 99 Nasal Cannula 2.0 28 07/26/18 16:08 81 19 97 Nasal Cannula 2.0 28 07/26/18 16:00 Nasal Cannula 3.0 07/26/18 16:00 96 07/26/18 16:00 97.3 97 20 140/86 (104) 97 Intake and Output 07/26/18 07/27/18 19:00 07:00 Intake Total 3440 ml 480 ml Output Total 3550 ml 250 ml Balance -110 ml 230 ml Intake Oral 440 ml 480 ml Hemodialysis 3000 ml Output Urine Total 550 ml 250 ml Hemodialysis UF 3000 ml # Voids 3 # Bowel Movements 1 Laboratory Tests 07/27/18 04:40: White Blood Count 7.0, Red Blood Count 2.85L, Hemoglobin 9.0L, Hematocrit 28.8L , Mean Corpuscular Volume 101H, Mean Corpuscular Hemoglobin 31.6H, Mean Corpuscular Hemoglobin Concent 31.3L, Red Cell Distribution Width 14.1, Platelet Count 216, Mean Platelet Volume 6.4L, Neutrophils (%) (Auto) 65.4, Lymphocytes (%) (Auto) 14.8L, Monocytes (%) (Auto) 13.2H, Eosinophils (%) (Auto ) 5.8H, Basophils (%) (Auto) 0.8, Sodium Level 138, Potassium Level 4.3, Chloride Level 101, Carbon Dioxide Level 29, Anion Gap 8, Blood Urea Nitrogen 38H, Creatinine 5.4H, Estimat Glomerular Filtration Rate 13.3, Glucose Level 116H, Uric Acid 4.1, Calcium Level 8.8, Phosphorus Level 3.3, Magnesium Level 1.5L, Total Bilirubin 0.2, Aspartate Amino Transf (AST/SGOT) 20, Alanine Aminotransferase (ALT/SGPT) 34, Alkaline Phosphatase 159H, Troponin I 0.047, C- Reactive Protein, Quantitative 5.3H, Pro-B-Type Natriuretic Peptide 9881H, Total Protein 7.1, Albumin 2.8L, Globulin 4.3, Albumin/Globulin Ratio 0.7L Height (Feet): 5 Height (Inches): 11.00 Weight (Pounds): 204 Objective Physical Exam General Appearance: A+O x2 NAD HEENT: normocephalic, atraumatic Neck: non-tender, normal alignment Respiratory/Chest: chest wall non-tender, lungs clear Cardiovascular/Chest: normal peripheral pulses, normal rate Abdomen: normal bowel sounds, non tender Extremities: normal range of motion Shane Mary MD Jul 27, 2018 14:59
[2018-07-27 16:00] VITALS: BP 132/84
--- NOTE | 2018-07-27 16:10 | Cardiac Electrophysiology PN ---
Assessment/Plan Assessment/Plan 1. Troponin leak in the setting of active cocaine use and renal failure. Levels are flat Avoid beta-pablo in view of active cocaine use. On aspirin and Lipitor EF 45%. No CP 2. Hypertension. On Cardizem 240 daily,Metoprolol 100 bid, Imdur 60, Clonidine 0.1 tid, Lisinopril 20 bid [address] HD per Dr Cm 3. End-stage renal disease, has not been started on hemodialysis. Cr 8.[address] Cm 4. Substance use with cocaine. Avoid beta-blockers. 5. Recent pneumonia. 6. Congestive heart failure. Echocardiogram EF 45% 7. Severe anemia s/p PRBCs . DW RN Subjective Subjective Feeling better. Objective Last 24 Hour Vital Signs Date Time Temp Pulse Resp B/P (MAP) Pulse Ox O2 Delivery O2 Flow Rate FiO2 07/27/18 13:04 86 20 100 Nasal Cannula 2.0 28 07/27/18 12:56 83 20 95 Nasal Cannula 2.0 28 07/27/18 12:00 98.9 79 18 146/97 (113) 97 07/27/18 09:10 96 155/96 07/27/18 09:10 155/96 07/27/18 09:09 155/96 07/27/18 09:09 96 155/96 07/27/18 09:00 Room Air 07/27/18 08:00 97.7 96 18 155/96 (115) 98 07/27/18 07:00 98 Nasal Cannula 2.0 28 07/27/18 07:00 Nasal Cannula 2.0 28 07/27/18 07:00 Nasal Cannula 2.0 28 07/27/18 07:00 Nasal Cannula 2.0 28 07/27/18 04:00 98.1 90 18 148/76 (100) 98 07/26/18 23:57 98.6 95 18 134/87 (103) 97 07/26/18 21:11 73 22 99 Nasal Cannula 2.0 28 07/26/18 20:59 71 16 97 Nasal Cannula 2.0 28 07/26/18 20:59 Nasal Cannula 2.0 28 07/26/18 20:59 71 16 97 Facial 40 07/26/18 20:59 97 Nasal Cannula 2.0 28 07/26/18 20:20 95 155/75 07/26/18 20:00 104 07/26/18 20:00 97.7 104 20 155/90 (111) 95 07/26/18 20:00 100 07/26/18 20:00 Room Air 07/26/18 17:33 Nasal Cannula 07/26/18 17:30 Nasal Cannula 3.0 07/26/18 17:17 140/86 07/26/18 16:24 2.0 28 07/26/18 16:24 Room Air 2.0 07/26/18 16:18 89 22 99 Nasal Cannula 2.0 28 Intake and Output 07/26/18 07/27/18 19:00 07:00 Intake Total 3440 ml 480 ml Output Total 3550 ml 250 ml Balance -110 ml 230 ml Intake Oral 440 ml 480 ml Hemodialysis 3000 ml Output Urine Total 550 ml 250 ml Hemodialysis UF 3000 ml # Voids 3 # Bowel Movements 1 Laboratory Tests Test 07/27/18 04:40 White Blood Count 7.0 K/UL (4.8-10.8) Red Blood Count 2.85 M/UL (4.70-6.10) L Hemoglobin 9.0 G/DL (14.2-18.0) L Hematocrit 28.8 % (42.0-52.0) L Mean Corpuscular Volume 101 FL (80-99) H Mean Corpuscular Hemoglobin 31.6 PG (27.0-31.0) H Mean Corpuscular Hemoglobin Concent 31.3 G/DL (32.0-36.0) L Red Cell Distribution Width 14.1 % (11.6-14.8) Platelet Count 216 K/UL (150-450) Mean Platelet Volume 6.4 FL (6.5-10.1) L Neutrophils (%) (Auto) 65.4 % (45.0-75.0) Lymphocytes (%) (Auto) 14.8 % (20.0-45.0) L Monocytes (%) (Auto) 13.2 % (1.0-10.0) H Eosinophils (%) (Auto) 5.8 % (0.0-3.0) H Basophils (%) (Auto) 0.8 % (0.0-2.0) Sodium Level 138 MMOL/L (136-145) Potassium Level 4.3 MMOL/L (3.5-5.1) Chloride Level 101 MMOL/L (98-107) Carbon Dioxide Level 29 MMOL/L (21-32) Anion Gap 8 mmol/L (5-15) Blood Urea Nitrogen 38 mg/dL (7-18) H Creatinine 5.4 MG/DL (0.55-1.30) H Estimat Glomerular Filtration Rate 13.3 mL/min (>60) Glucose Level 116 MG/DL (74-106) H Uric Acid 4.1 MG/DL (2.6-7.2) Calcium Level 8.8 MG/DL (8.5-10.1) Phosphorus Level 3.3 MG/DL (2.5-4.9) Magnesium Level 1.5 MG/DL (1.8-2.4) L Total Bilirubin 0.2 MG/DL (0.2-1.0) Aspartate Amino Transf (AST/SGOT) 20 U/L (15-37) Alanine Aminotransferase (ALT/SGPT) 34 U/L (12-78) Alkaline Phosphatase 159 U/L (46-116) H Troponin I 0.047 ng/mL (0.000-0.056) C-Reactive Protein, Quantitative 5.3 mg/dL (0.00-0.90) H Pro-B-Type Natriuretic Peptide 9881 pg/mL (0-125) H Total Protein 7.1 G/DL (6.4-8.2) Albumin 2.8 G/DL (3.4-5.0) L Globulin 4.3 g/dL Albumin/Globulin Ratio 0.7 (1.0-2.7) L Objective HEAD AND NECK: No JVD. LUNGS: Decreased breath sounds. Right IJ PermCath CARDIOVASCULAR: Regular S1 and S2 with no gallop or murmur. ABDOMEN: Soft. EXTREMITIES: 1 plus pitting edema. German Gray MD Jul 27, 2018 16:10
--- NOTE | 2018-07-27 17:51 | General Progress Note ---
Assessment/Plan Assessment/Plan (1) Lumbar DDD (2) Lumbar Spondylosis (3) Cocaine Abuse Patient will be continued on [place] as needed. D/w Dr. Rosado and he concurred. Subjective Date patient seen: Jul 27, 2018 Time patient seen: 05:15 - pm Allergies: Coded Allergies: No Known Allergies (Unverified , 07/08/18) Subjective REVIEW OF SYSTEMS: Denies rash, fever, chills, sweating, dizziness, drowsiness, blurred vision, or change in weight. No chest pain. No nausea, vomiting, diarrhea, or blood in the stool or urine. No bowel or bladder incontinence. He is complaining of low back pain. SUBJECTIVE: Patient is in bed on Med/surge floor tolerating the pain on [place]. Objective Last 24 Hour Vital Signs Date Time Temp Pulse Resp B/P (MAP) Pulse Ox O2 Delivery O2 Flow Rate FiO2 07/27/18 17:29 132/84 07/27/18 16:00 98.8 74 19 132/84 (100) 99 07/27/18 13:04 86 20 100 Nasal Cannula 2.0 28 07/27/18 12:56 83 20 95 Nasal Cannula 2.0 28 07/27/18 12:00 98.9 79 18 146/97 (113) 97 07/27/18 09:10 96 155/96 07/27/18 09:10 155/96 07/27/18 09:09 155/96 07/27/18 09:09 96 155/96 07/27/18 09:00 Room Air 07/27/18 08:00 97.7 96 18 155/96 (115) 98 07/27/18 07:00 98 Nasal Cannula 2.0 28 07/27/18 07:00 Nasal Cannula 2.0 28 07/27/18 07:00 Nasal Cannula 2.0 28 07/27/18 07:00 Nasal Cannula 2.0 28 07/27/18 04:00 98.1 90 18 148/76 (100) 98 07/26/18 23:57 98.6 95 18 134/87 (103) 97 07/26/18 21:11 73 22 99 Nasal Cannula 2.0 28 07/26/18 20:59 71 16 97 Nasal Cannula 2.0 28 07/26/18 20:59 Nasal Cannula 2.0 28 07/26/18 20:59 71 16 97 Facial 40 07/26/18 20:59 97 Nasal Cannula 2.0 28 07/26/18 20:20 95 155/75 07/26/18 20:00 104 07/26/18 20:00 97.7 104 20 155/90 (111) 95 07/26/18 20:00 100 07/26/18 20:00 Room Air Intake and Output 07/26/18 07/27/18 19:00 07:00 Intake Total 3440 ml 480 ml Output Total 3550 ml 250 ml Balance -110 ml 230 ml Intake Oral 440 ml 480 ml Hemodialysis 3000 ml Output Urine Total 550 ml 250 ml Hemodialysis UF 3000 ml # Voids 3 # Bowel Movements 1 Laboratory Tests 07/27/18 04:40: White Blood Count 7.0, Red Blood Count 2.85L, Hemoglobin 9.0L, Hematocrit 28.8L , Mean Corpuscular Volume 101H, Mean Corpuscular Hemoglobin 31.6H, Mean Corpuscular Hemoglobin Concent 31.3L, Red Cell Distribution Width 14.1, Platelet Count 216, Mean Platelet Volume 6.4L, Neutrophils (%) (Auto) 65.4, Lymphocytes (%) (Auto) 14.8L, Monocytes (%) (Auto) 13.2H, Eosinophils (%) (Auto ) 5.8H, Basophils (%) (Auto) 0.8, Sodium Level 138, Potassium Level 4.3, Chloride Level 101, Carbon Dioxide Level 29, Anion Gap 8, Blood Urea Nitrogen 38H, Creatinine 5.4H, Estimat Glomerular Filtration Rate 13.3, Glucose Level 116H, Uric Acid 4.1, Calcium Level 8.8, Phosphorus Level 3.3, Magnesium Level 1.5L, Total Bilirubin 0.2, Aspartate Amino Transf (AST/SGOT) 20, Alanine Aminotransferase (ALT/SGPT) 34, Alkaline Phosphatase 159H, Troponin I 0.047, C- Reactive Protein, Quantitative 5.3H, Pro-B-Type Natriuretic Peptide 9881H, Total Protein 7.1, Albumin 2.8L, Globulin 4.3, Albumin/Globulin Ratio 0.7L Height (Feet): 5 Height (Inches): 11.00 Weight (Pounds): 204 Objective GENERAL: Alert, awake, and oriented. LUNGS: Decreased breath sounds bilaterally. HEART: S1 and S2 regular. ABDOMEN: Soft, nontender. EXTREMITIES: No CCE NEURO: No changes. James Ramirez Jul 27, 2018 17:50
[2018-07-27 20:00] VITALS: BP 125/92
[2018-07-27] MEDS ORDERED: Epogen (for non ESRD use) SUBQ SCH ×2 (21:00)
[2018-07-27] MEDS: Tamsulosin 0.4mg cap ORAL SCH (21:08)
[2018-07-27] MEDS: Dyna-Hex 2% Top Sol 2oz TOPIC SCH (21:08)
[2018-07-27] MEDS: Miralax 17gm pkt ORAL SCH (21:09)
[2018-07-27 23:39] VITALS: BP 121/88
[2018-07-28 04:18] VITALS: BP 127/85
[2018-07-28 06:03] LABS: BASOPHILS % (AUTO) 1.4 % (0.0-2.0); EOSINOPHILS % (AUTO) 5.8 % (0.0-3.0); HEMATOCRIT 32.3 % (42.0-52.0); LYMPHOCYTES % (AUTO) 12.4 % (20.0-45.0); MEAN CORPUSCULAR VOLUME 101 FL (80-99); NEUTROPHILS % (AUTO) 68.4 % (45.0-75.0); PLATELET COUNT 223 K/UL (150-450); RED CELL DISTRIBUTION WIDTH 14.1 % (11.6-14.8); WHITE BLOOD COUNT 7.2 K/UL (4.8-10.8)
[2018-07-28 06:14] LABS: ANION GAP 8 mmol/L (5-15); BLOOD UREA NITROGEN 44 mg/dL (7-18); CALCIUM 9.2 MG/DL (8.5-10.1); CARBON DIOXIDE 28 MMOL/L (21-32); CHLORIDE 99 MMOL/L (98-107); CREATININE 6.1 MG/DL (0.55-1.30); POTASSIUM 5.1 MMOL/L (3.5-5.1); SODIUM 135 MMOL/L (136-145)
[2018-07-28 08:00] VITALS: BP 145/93
[2018-07-28] MEDS: Albuterol/Ipratropium 3ml neb HHN SCH ×2 (08:02→13:58)
--- NOTE | 2018-07-28 08:51 | General Progress Note ---
Assessment/Plan Assessment/Plan (1) Lumbar DDD (2) Lumbar Spondylosis (3) Cocaine Abuse Patient will be continued on [place] as needed. D/w Dr. Rosado and he concurred. Subjective Date patient seen: Jul 28, 2018 Time patient seen: 08:30 - am Allergies: Coded Allergies: No Known Allergies (Unverified , 07/08/18) Subjective REVIEW OF SYSTEMS: Denies rash, fever, chills, sweating, dizziness, drowsiness, blurred vision, or change in weight. No chest pain. No nausea, vomiting, diarrhea, or blood in the stool or urine. No bowel or bladder incontinence. He is complaining of low back pain. SUBJECTIVE: Patient is in bed c/o pain which he reports has been tolerated on the norco. He has no new complaints at this time. Objective Last 24 Hour Vital Signs Date Time Temp Pulse Resp B/P (MAP) Pulse Ox O2 Delivery O2 Flow Rate FiO2 07/28/18 08:09 69 22 99 Nasal Cannula 2.0 28 07/28/18 08:04 69 22 97 Nasal Cannula 2.0 28 07/28/18 08:04 97 Nasal Cannula 2.0 28 07/28/18 08:04 Nasal Cannula 2.0 28 07/28/18 04:18 97.9 75 18 127/85 (99) 96 07/27/18 23:39 97.9 68 18 121/88 (99) 99 07/27/18 22:41 98.0 07/27/18 21:56 89 20 99 Nasal Cannula 2.0 28 07/27/18 21:48 85 20 97 Nasal Cannula 2.0 28 07/27/18 21:47 97 Nasal Cannula 2.0 28 07/27/18 21:47 Nasal Cannula 2.0 28 07/27/18 21:09 79 125/92 07/27/18 20:09 Room Air 07/27/18 20:00 98.0 79 20 125/92 (103) 96 07/27/18 17:29 132/84 07/27/18 16:00 98.8 74 19 132/84 (100) 99 07/27/18 13:04 86 20 100 Nasal Cannula 2.0 28 07/27/18 12:56 83 20 95 Nasal Cannula 2.0 28 07/27/18 12:00 98.9 79 18 146/97 (113) 97 1/14/19 09:10 96 155/96 07/27/18 09:10 155/96 07/27/18 09:09 155/96 07/27/18 09:09 96 155/96 07/27/18 09:00 Room Air Intake and Output 07/27/18 07/28/18 19:00 07:00 Intake Total 920 ml 250 ml Output Total 850 ml Balance 920 ml -600 ml Intake Oral 720 ml 250 ml IV Total 200 ml Output Urine Total 850 ml Laboratory Tests 07/28/18 05:10: White Blood Count 7.2, Red Blood Count 3.20L, Hemoglobin 10.0L, Hematocrit 32.3L , Mean Corpuscular Volume 101H, Mean Corpuscular Hemoglobin 31.3H, Mean Corpuscular Hemoglobin Concent 31.0L, Red Cell Distribution Width 14.1, Platelet Count 223, Mean Platelet Volume 6.9, Neutrophils (%) (Auto) 68.4, Lymphocytes (%) (Auto) 12.4L, Monocytes (%) (Auto) 12.0H, Eosinophils (%) (Auto ) 5.8H, Basophils (%) (Auto) 1.4, Sodium Level 135L, Potassium Level 5.1, Chloride Level 99, Carbon Dioxide Level 28, Anion Gap 8, Blood Urea Nitrogen 44H , Creatinine 6.1H, Estimat Glomerular Filtration Rate 11.6, Glucose Level 104, Calcium Level 9.2 Height (Feet): 5 Height (Inches): 11.00 Weight (Pounds): 203 Objective GENERAL: Alert, awake, and oriented. LUNGS: Decreased breath sounds bilaterally. HEART: S1 and S2 regular. ABDOMEN: Soft, nontender. EXTREMITIES: No CCE NEURO: No changes. James Ramirez Jul 28, 2018 08:51
[2018-07-28] MEDS: Docusate 100mg cap ORAL SCH ×2 (09:00→09:20)
[2018-07-28] MEDS: Imdur 30mg tab ORAL SCH (09:19)
[2018-07-28] MEDS: dilTIAZem HCl CD 240mg cap ORAL SCH (09:20)
[2018-07-28] MEDS: Aspirin Baby 81mg ORAL SCH (09:20)
[2018-07-28] MEDS: Lisinopril 20mg tab ORAL SCH ×2 (09:20→17:55)
[2018-07-28] MEDS: Heparin 5000 units/ml inj SUBQ SCH ×2 (09:59→20:53)
--- NOTE | 2018-07-28 10:46 | Cardiac Electrophysiology PN ---
Assessment/Plan Assessment/Plan 1. Troponin leak in the setting of active cocaine use and renal failure. Levels are flat Avoid beta-pablo in view of active cocaine use. On aspirin and Lipitor EF 45%. No CP 2. Hypertension. On Cardizem 240 daily,Metoprolol 100 bid, Imdur 60, Clonidine 0.1 tid, Lisinopril 20 bid and HD per Dr Cm 3. End-stage renal disease, on HD by Dr. Cm 4. Substance use with cocaine. 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 5. Recent pneumonia. 6. Congestive heart failure. EF 45% 7. Severe anemia s/p PRBCs . JEANA RN Subjective Subjective Feeling better. Objective Last 24 Hour Vital Signs Date Time Temp Pulse Resp B/P (MAP) Pulse Ox O2 Delivery O2 Flow Rate FiO2 07/28/18 09:20 145/93 07/28/18 09:20 86 145/93 07/28/18 09:19 86 145/93 07/28/18 09:19 145/93 07/28/18 09:00 Room Air 07/28/18 08:09 69 22 99 Nasal Cannula 2.0 28 07/28/18 08:04 69 22 97 Nasal Cannula 2.0 28 07/28/18 08:04 97 Nasal Cannula 2.0 28 07/28/18 08:04 Nasal Cannula 2.0 28 07/28/18 08:00 97.9 86 18 145/93 (110) 97 07/28/18 04:18 97.9 75 18 127/85 (99) 96 07/27/18 23:39 97.9 68 18 121/88 (99) 99 07/27/18 22:41 98.0 07/27/18 21:56 89 20 99 Nasal Cannula 2.0 28 07/27/18 21:48 85 20 97 Nasal Cannula 2.0 28 07/27/18 21:47 97 Nasal Cannula 2.0 28 07/27/18 21:47 Nasal Cannula 2.0 28 07/27/18 21:09 79 125/92 07/27/18 20:09 Room Air 07/27/18 20:00 98.0 79 20 125/92 (103) 96 07/27/18 17:29 132/84 07/27/18 16:00 98.8 74 19 132/84 (100) 99 07/27/18 13:04 86 20 100 Nasal Cannula 2.0 28 07/27/18 12:56 83 20 95 Nasal Cannula 2.0 28 07/27/18 12:00 98.9 79 18 146/97 (113) 97 Intake and Output 07/27/18 07/28/18 19:00 07:00 Intake Total 920 ml 250 ml Output Total 850 ml Balance 920 ml -600 ml Intake Oral 720 ml 250 ml IV Total 200 ml Output Urine Total 850 ml Laboratory Tests Test 07/28/18 05:10 White Blood Count 7.2 K/UL (4.8-10.8) Red Blood Count 3.20 M/UL (4.70-6.10) L Hemoglobin 10.0 G/DL (14.2-18.0) L Hematocrit 32.3 % (42.0-52.0) L Mean Corpuscular Volume 101 FL (80-99) H Mean Corpuscular Hemoglobin 31.3 PG (27.0-31.0) H Mean Corpuscular Hemoglobin Concent 31.0 G/DL (32.0-36.0) L Red Cell Distribution Width 14.1 % (11.6-14.8) Platelet Count 223 K/UL (150-450) Mean Platelet Volume 6.9 FL (6.5-10.1) Neutrophils (%) (Auto) 68.4 % (45.0-75.0) Lymphocytes (%) (Auto) 12.4 % (20.0-45.0) L Monocytes (%) (Auto) 12.0 % (1.0-10.0) H Eosinophils (%) (Auto) 5.8 % (0.0-3.0) H Basophils (%) (Auto) 1.4 % (0.0-2.0) Sodium Level 135 MMOL/L (136-145) L Potassium Level 5.1 MMOL/L (3.5-5.1) Chloride Level 99 MMOL/L (98-107) Carbon Dioxide Level 28 MMOL/L (21-32) Anion Gap 8 mmol/L (5-15) Blood Urea Nitrogen 44 mg/dL (7-18) H Creatinine 6.1 MG/DL (0.55-1.30) H Estimat Glomerular Filtration Rate 11.6 mL/min (>60) Glucose Level 104 MG/DL (74-106) Calcium Level 9.2 MG/DL (8.5-10.1) Objective HEAD AND NECK: No JVD. LUNGS: Decreased breath sounds. Right IJ PermCath CARDIOVASCULAR: Regular S1 and S2 with no gallop or murmur. ABDOMEN: Soft. EXTREMITIES: 1 plus pitting edema. German Gray MD Jul 28, 2018 10:46
[2018-07-28 12:00] VITALS: BP 136/88
--- NOTE | 2018-07-28 12:26 | Nephrology Progress Note ---
Assessment/Plan Problem List: (1) Renal failure (ARF), acute on chronic (2) Cocaine abuse (3) Acute exacerbation of CHF (congestive heart failure) (4) Hypertensive cardiomegaly with heart failure (5) Volume overload Assessment Acute on Chronic renal failure Anemia Elevated troponin Hypertensive renal and heart disease Cocaine abuse Cardiomyopathy Plan next HD 07/28 readjust bp meds Dc planning increase Neurontin transfuse one unit 07/[address] Moura 2D Echo 55% ej fx BRIDGETT kidneys * Mild fullness of the bilateral renal collecting systems without radiographically appreciable stone and observed bilateral ureteral jets. Findings may be related to mild bladder distention. Consider repeat exam after bladder decompression. monitor renal parameters Avoid nephrotoxics renal diet flomax Subjective ROS Limited/Unobtainable: No Constitutional: Reports: malaise Objective Objective Last 24 Hour Vital Signs Date Time Temp Pulse Resp B/P (MAP) Pulse Ox O2 Delivery O2 Flow Rate FiO2 07/28/18 09:20 145/93 07/28/18 09:20 86 145/93 07/28/18 09:19 86 145/93 07/28/18 09:19 145/93 07/28/18 09:00 Room Air 07/28/18 08:09 69 22 99 Nasal Cannula 2.0 28 07/28/18 08:04 69 22 97 Nasal Cannula 2.0 28 07/28/18 08:04 97 Nasal Cannula 2.0 28 07/28/18 08:04 Nasal Cannula 2.0 28 07/28/18 08:00 97.9 86 18 145/93 (110) 97 07/28/18 04:18 97.9 75 18 127/85 (99) 96 07/27/18 23:39 97.9 68 18 121/88 (99) 99 07/27/18 22:41 98.0 07/27/18 21:56 89 20 99 Nasal Cannula 2.0 28 07/27/18 21:48 85 20 97 Nasal Cannula 2.0 28 07/27/18 21:47 97 Nasal Cannula 2.0 28 07/27/18 21:47 Nasal Cannula 2.0 28 07/27/18 21:09 79 125/92 07/27/18 20:09 Room Air 07/27/18 20:00 98.0 79 20 125/92 (103) 96 07/27/18 17:29 132/84 07/27/18 16:00 98.8 74 19 132/84 (100) 99 07/27/18 13:04 86 20 100 Nasal Cannula 2.0 28 07/27/18 12:56 83 20 95 Nasal Cannula 2.0 28 Intake and Output 07/27/18 07/28/18 19:00 07:00 Intake Total 920 ml 250 ml Output Total 850 ml Balance 920 ml -600 ml Intake Oral 720 ml 250 ml IV Total 200 ml Output Urine Total 850 ml Laboratory Tests 07/28/18 05:10: White Blood Count 7.2, Red Blood Count 3.20L, Hemoglobin 10.0L, Hematocrit 32.3L , Mean Corpuscular Volume 101H, Mean Corpuscular Hemoglobin 31.3H, Mean Corpuscular Hemoglobin Concent 31.0L, Red Cell Distribution Width 14.1, Platelet Count 223, Mean Platelet Volume 6.9, Neutrophils (%) (Auto) 68.4, Lymphocytes (%) (Auto) 12.4L, Monocytes (%) (Auto) 12.0H, Eosinophils (%) (Auto ) 5.8H, Basophils (%) (Auto) 1.4, Sodium Level 135L, Potassium Level 5.1, Chloride Level 99, Carbon Dioxide Level 28, Anion Gap 8, Blood Urea Nitrogen 44H , Creatinine 6.1H, Estimat Glomerular Filtration Rate 11.6, Glucose Level 104, Calcium Level 9.2 Height (Feet): 5 Height (Inches): 11.00 Weight (Pounds): 203 General Appearance: no apparent distress Objective no change Richar Cm MD Jul 28, 2018 12:26
--- NOTE | 2018-07-28 14:03 | GI Progress Note ---
Assessment/Plan Problems: (1) Macrocytic anemia ICD Codes: D53.9 - Nutritional anemia, unspecified SNOMED: 28921063 (2) Iron deficiency ICD Codes: E61.1 - Iron deficiency SNOMED: 91870198 (3) Constipation ICD Codes: K59.00 - Constipation, unspecified SNOMED: 43188521 (4) Cocaine abuse ICD Codes: F14.10 - Cocaine abuse, uncomplicated SNOMED: 70191355 (5) Pancreatitis ICD Codes: K85.90 - Acute pancreatitis without necrosis or infection, unspecified SNOMED: 25505633 Status: stable Status Narrative Discussed with Dr. Shea Assessment/Plan Pancreatitis now resolved Hepatitis panel negative history of hernia repair Stable H&H Patient will require cardiac clearance prior to any GI procedures, will consider pending work up OB stool r/o GI bleed not collected monitor H&H, prn transfusions bowel regime ppi venofer renal diet fu labs Otherwise outpatient GI procedures The patient was seen and examined at bedside and all new and available data was reviewed in the patients chart. I agree with the above findings, impression and plan. (Patient seen earlier today. Signature stamp does not reflect patient encounter time.). - Nikolas Shea MD Subjective Subjective had BM has complaint of lower abdominal pain, believes there is problem with his hernia mesh Objective Last 24 Hour Vital Signs Date Time Temp Pulse Resp B/P (MAP) Pulse Ox O2 Delivery O2 Flow Rate FiO2 07/28/18 13:59 83 22 97 Nasal Cannula 2.0 28 07/28/18 12:00 97.9 88 20 136/88 (104) 96 07/28/18 09:20 145/93 07/28/18 09:20 86 145/93 07/28/18 09:19 86 145/93 07/28/18 09:19 145/93 07/28/18 09:00 Room Air 07/28/18 08:09 69 22 99 Nasal Cannula 2.0 28 07/28/18 08:04 69 22 97 Nasal Cannula 2.0 28 07/28/18 08:04 97 Nasal Cannula 2.0 28 07/28/18 08:04 Nasal Cannula 2.0 28 07/28/18 08:00 97.9 86 18 145/93 (110) 97 07/28/18 04:18 97.9 75 18 127/85 (99) 96 07/27/18 23:39 97.9 68 18 121/88 (99) 99 07/27/18 22:41 98.0 07/27/18 21:56 89 20 99 Nasal Cannula 2.0 28 07/27/18 21:48 85 20 97 Nasal Cannula 2.0 28 07/27/18 21:47 97 Nasal Cannula 2.0 28 07/27/18 21:47 Nasal Cannula 2.0 28 07/27/18 21:09 79 125/92 07/27/18 20:09 Room Air 07/27/18 20:00 98.0 79 20 125/92 (103) 96 07/27/18 17:29 132/84 07/27/18 16:00 98.8 74 19 132/84 (100) 99 Intake and Output 07/27/18 07/28/18 19:00 07:00 Intake Total 920 ml 250 ml Output Total 850 ml Balance 920 ml -600 ml Intake Oral 720 ml 250 ml IV Total 200 ml Output Urine Total 850 ml Laboratory Tests Test 07/28/18 05:10 White Blood Count 7.2 K/UL (4.8-10.8) Red Blood Count 3.20 M/UL (4.70-6.10) L Hemoglobin 10.0 G/DL (14.2-18.0) L Hematocrit 32.3 % (42.0-52.0) L Mean Corpuscular Volume 101 FL (80-99) H Mean Corpuscular Hemoglobin 31.3 PG (27.0-31.0) H Mean Corpuscular Hemoglobin Concent 31.0 G/DL (32.0-36.0) L Red Cell Distribution Width 14.1 % (11.6-14.8) Platelet Count 223 K/UL (150-450) Mean Platelet Volume 6.9 FL (6.5-10.1) Neutrophils (%) (Auto) 68.4 % (45.0-75.0) Lymphocytes (%) (Auto) 12.4 % (20.0-45.0) L Monocytes (%) (Auto) 12.0 % (1.0-10.0) H Eosinophils (%) (Auto) 5.8 % (0.0-3.0) H Basophils (%) (Auto) 1.4 % (0.0-2.0) Sodium Level 135 MMOL/L (136-145) L Potassium Level 5.1 MMOL/L (3.5-5.1) Chloride Level 99 MMOL/L (98-107) Carbon Dioxide Level 28 MMOL/L (21-32) Anion Gap 8 mmol/L (5-15) Blood Urea Nitrogen 44 mg/dL (7-18) H Creatinine 6.1 MG/DL (0.55-1.30) H Estimat Glomerular Filtration Rate 11.6 mL/min (>60) Glucose Level 104 MG/DL (74-106) Calcium Level 9.2 MG/DL (8.5-10.1) Height (Feet): 5 Height (Inches): 11.00 Weight (Pounds): 203 General Appearance: WD/WN, no apparent distress, alert Cardiovascular: normal rate Respiratory/Chest: normal breath sounds, no respiratory distress Abdominal Exam: normal bowel sounds, non tender, soft Extremities: normal range of motion, non-tender Daja Murdock NP Jul 28, 2018 14:03
[2018-07-28 16:00] VITALS: BP 130/80
--- NOTE | 2018-07-28 16:35 | Pulmonology Progress Note ---
Assessment/Plan Problems: (1) Acute exacerbation of CHF (congestive heart failure) (2) Hypertensive cardiomegaly with heart failure (3) ACS (acute coronary syndrome) (4) Cocaine abuse (5) ARF (acute renal failure) (6) DDD (degenerative disc disease) (7) Epistaxis (8) Hypercapnic respiratory failure Assessment/Plan ASSESSMENT: The patient is a 58-year-old male with history of cocaine and tobacco abuse, congestive heart failure, and renal impairment, presenting with decompensated heart failure and abnormal renal function with marked uremia. He has previously been told he needs dialysis. He is now being admitted for acute coronary syndrome and likely need for dialysis. PROBLEM LIST: 1. Congestive heart failure with acute decompensated heart failure. 2. Abnormal renal function, likely cardiorenal syndrome now on HD 3. History of cocaine abuse with current positive tox screen. 4. Anemia/DARSHANA 5. Hypertension with hypertensive urgency. 6. Acute coronary syndrome/non-ST elevation myocardial infarction. 7. Acute on chronic LBP with radiculopathy ---> DDD/SS TREATMENT PLAN: -BiPAP 12/5 qHS and PRN - ENCOURAGE COMPLIANCE -Titrate FiO2 -RTC and PRN DUOnebs -HD per renal with UF as able -Control BP -F/U cards and renal recs -F/U heme recs -F/U GI recs ---> plan for outpatient EGD/colo -DVT Px: hep SQ -Pain control/supportive care - minimize narcotics/sedatives -F/U pain management recs -Appreciate psych eval, has capacity, F/U recs -SW assistance in placement Subjective Allergies: Coded Allergies: No Known Allergies (Unverified , 07/08/18) Subjective ROHINI AFVSS, stable O2 needs Seen during HD Feels better, less SOB, no CP, no F/C Objective Last 24 Hour Vital Signs Date Time Temp Pulse Resp B/P (MAP) Pulse Ox O2 Delivery O2 Flow Rate FiO2 07/28/18 16:18 Nasal Cannula 07/28/18 14:06 84 22 99 Nasal Cannula 2.0 28 07/28/18 13:59 83 22 97 Nasal Cannula 2.0 28 07/28/18 12:00 97.9 88 20 136/88 (104) 96 07/28/18 09:20 145/93 1/15/19 09:20 86 145/93 07/28/18 09:19 86 145/93 07/28/18 09:19 145/93 07/28/18 09:00 Room Air 07/28/18 08:09 69 22 99 Nasal Cannula 2.0 28 07/28/18 08:04 69 22 97 Nasal Cannula 2.0 28 07/28/18 08:04 97 Nasal Cannula 2.0 28 07/28/18 08:04 Nasal Cannula 2.0 28 07/28/18 08:00 97.9 86 18 145/93 (110) 97 07/28/18 04:18 97.9 75 18 127/85 (99) 96 07/27/18 23:39 97.9 68 18 121/88 (99) 99 07/27/18 22:41 98.0 07/27/18 21:56 89 20 99 Nasal Cannula 2.0 28 07/27/18 21:48 85 20 97 Nasal Cannula 2.0 28 07/27/18 21:47 97 Nasal Cannula 2.0 28 07/27/18 21:47 Nasal Cannula 2.0 28 07/27/18 21:09 79 125/92 07/27/18 20:09 Room Air 07/27/18 20:00 98.0 79 20 125/92 (103) 96 07/27/18 17:29 132/84 Intake and Output 07/27/18 07/28/18 19:00 07:00 Intake Total 920 ml 250 ml Output Total 850 ml Balance 920 ml -600 ml Intake Oral 720 ml 250 ml IV Total 200 ml Output Urine Total 850 ml General Appearance: WD/WN, no acute distress HEENT: normocephalic, atraumatic, anicteric, mucous membranes moist Respiratory/Chest: chest wall non-tender, lungs clear, normal breath sounds, no respiratory distress, no accessory muscle use Cardiovascular: normal peripheral pulses, normal rate, regular rhythm Abdomen: normal bowel sounds, soft, non tender, no organomegaly, non distended , no mass Extremities: no cyanosis, no clubbing, other - 1+ STEPHANI Laboratory Tests 07/28/18 05:10: White Blood Count 7.2, Red Blood Count 3.20L, Hemoglobin 10.0L, Hematocrit 32.3L , Mean Corpuscular Volume 101H, Mean Corpuscular Hemoglobin 31.3H, Mean Corpuscular Hemoglobin Concent 31.0L, Red Cell Distribution Width 14.1, Platelet Count 223, Mean Platelet Volume 6.9, Neutrophils (%) (Auto) 68.4, Lymphocytes (%) (Auto) 12.4L, Monocytes (%) (Auto) 12.0H, Eosinophils (%) (Auto ) 5.8H, Basophils (%) (Auto) 1.4, Sodium Level 135L, Potassium Level 5.1, Chloride Level 99, Carbon Dioxide Level 28, Anion Gap 8, Blood Urea Nitrogen 44H , Creatinine 6.1H, Estimat Glomerular Filtration Rate 11.6, Glucose Level 104, Calcium Level 9.2 Current Medications Medications (Trade) Dose Ordered Sig/Harish Route PRN Reason Start Time Stop Time Status Last Admin Dose Admin Acetaminophen (Tylenol) 650 mg Q4H PRN ORAL Mild Pain/Temp > 100.5 07/26/18 22:00 08/25/18 21:59 07/27/18 02:11 Acetaminophen/ Hydrocodone Bitart ([place] 10/325) 1 tab Q4H PRN ORAL SEVERE Pain 07/27/18 17:51 08/03/18 17:50 07/27/18 22:10 Albuterol/ Ipratropium (Albuterol/ Ipratropium) 3 ml Q4H PRN HHN Shortness of Breath 07/26/18 22:00 07/31/18 21:59 Albuterol/ Ipratropium (Albuterol/ Ipratropium) 3 ml TIDRT HHN 07/27/18 07:00 07/28/18 18:59 07/28/18 13:58 Aspirin (ASA) 81 mg DAILY ORAL 07/27/18 09:00 08/08/18 08:59 07/28/18 09:20 Chlorhexidine Gluconate ([place]-Hex 2%) 1 applic DAILY@1999 TOPIC 07/27/18 20:00 08/25/18 19:59 07/27/18 21:08 Clonidine HCl (Catapres Tab) 0.1 mg Q4H PRN ORAL bp over 165 syst 07/26/18 22:00 08/25/18 21:59 Dextrose (Dextrose 50%) 25 ml Q30M PRN IV Hypoglycemia 07/26/18 22:00 08/07/18 16:29 Dextrose (Dextrose 50%) 50 ml Q30M PRN IV Hypoglycemia 07/26/18 22:00 08/07/18 16:29 Diltiazem HCl (Cardizem CD) 240 mg DAILY ORAL 07/27/18 09:00 08/25/18 08:59 07/28/18 09:20 Diphenhydramine HCl (Benadryl) 25 mg Q6H PRN ORAL Itching/Pruritis 07/26/18 22:30 08/07/18 16:29 07/27/18 21:18 Docusate Sodium (Colace) 100 mg THREE TIMES A DAY ORAL 07/27/18 09:00 08/20/18 17:59 07/27/18 17:29 Epoetin [place] (Procrit (for non ESRD use)) 10,000 units FRI-FRI-FRI SUBQ 07/27/18 21:00 08/12/18 21:59 07/27/18 21:10 Gabapentin (Neurontin) 300 mg THREE TIMES A DAY ORAL 07/27/18 09:00 08/17/18 17:59 07/28/18 14:10 Heparin Sodium (Porcine) (Heparin 5000 units/ml) 5,000 units EVERY 12 HOURS SUBQ 07/27/18 09:00 08/14/18 21:59 07/28/18 09:59 Isosorbide Mononitrate (Imdur) 60 mg DAILY ORAL 07/27/18 09:00 08/11/18 08:59 07/28/18 09:19 Lisinopril (Prinivil) 20 mg BID ORAL 07/27/18 09:00 08/19/18 08:59 07/28/18 09:20 Metoprolol Tartrate (Lopressor) 100 mg Q12HR ORAL 07/27/18 09:00 08/22/18 20:59 07/28/18 09:19 Pantoprazole (Protonix) 40 mg DAILY ORAL 07/27/18 09:00 08/10/18 21:59 07/28/18 09:21 Polyethylene Glycol (Miralax) 17 gm BEDTIME ORAL 07/27/18 21:00 08/20/18 20:59 07/27/18 21:09 Sevelamer Carbonate (Renvela) 800 mg THREE TIMES A DAY ORAL 07/27/18 09:00 08/08/18 17:59 07/28/18 14:10 Tamsulosin HCl (Flomax) 0.4 mg QHS ORAL 07/27/18 21:00 08/09/18 12:52 07/27/18 21:08 Edgard Webb MD Jul 28, 2018 16:35
--- NOTE | 2018-07-28 16:56 | General Progress Note ---
Assessment/Plan Assessment/Plan # Anemia of chronic disease, multifactorial, grace on ckd --> Anemia w/u has been reviewed, no eric noted --> No evidence of hemolysis is noted, peripheral smear is wnl --> Hgb goal >7. Transfuse prn. --> continue on epo sq --> on iron # Congestive heart failure with acute decompensated heart failure. --> per cards management --> In tele unit --> on diuresis # Abnormal renal function, likely cardiorenal syndrome. --> Nephrology is following appreciate recs --> HD 07/28/18 --> BRIDGETT kidneys with minimal fullness, seen by renal, echogenicity is wnl # History of cocaine abuse with current positive tox screen. --> recommend cessation # Hypertension with hypertensive urgency. --> On Norvasc 5 mg bid, Hydralazine,Imdur and Clonidine patch as needed --> Avoid beta-blockers for active cocaine # Acute coronary syndrome/non-ST elevation myocardial infarction. --> per cards The date and time note entered does not reflect time and date patient was seen. GREATLY APPRECIATE CONSULTATION. Subjective Constitutional: Denies: no symptoms, chills, diaphoresis, fever, malaise, weakness, other HEENT: Denies: no symptoms, eye pain, blurred vision, tearing, double vision, ear pain, ear discharge, nose pain, nose congestion, throat pain, throat swelling, mouth pain, mouth swelling, other Cardiovascular: Denies: no symptoms, chest pain, edema, irregular heart rate, lightheadedness, palpitations, syncope, other Respiratory: Denies: no symptoms, cough, orthopnea, shortness of breath, SOB with excertion, SOB at rest, sputum, stridor, wheezing, other Gastrointestinal/Abdominal: Denies: no symptoms, abdomen distended, abdominal pain, black stools, tarry stools, blood in stool, constipated, diarrhea, difficulty swallowing, nausea, poor appetite, poor fluid intake, rectal bleeding , vomiting, other Genitourinary: Denies: no symptoms, burning, discharge, frequency, flank pain, hematuria, incontinence, pain, urgency, other Neurologic/Psychiatric: Denies: no symptoms, anxiety, depressed, emotional problems, headache, numbness, paresthesia, pre-existing deficit, seizure, tingling, tremors, weakness, other Endocrine: Denies: no symptoms, excessive sweating, flushing, intolerance to cold, intolerance to heat, increased hunger, increased thirst, increased urine, unexplained weight gain, unexplained weight loss, other Hematologic/Lymphatic: Denies: no symptoms, anemia, easy bleeding, easy bruising, other Allergies: Coded Allergies: No Known Allergies (Unverified , 07/08/18) Subjective 07/12: no events, cr trending, h/h stable, on epo 07/14: transfuse one unit 07/13, diruresed, refused mendez, seen by cards, bp better 07/15 : Pt is seen in the room, awake and alert, S/P blood transfusion, refusing HD 07/16 : Pt is awake and resting in bed. waiting on sister to make HD decision, no events 07/17 Pt is seen in the room,awake and alert, appears to be agreeable for placement of dialysis cath and dialysis . 07/18: Pt is seen in the room, No CP or SOB. Had HD today. 07/19: Pt is awake and resting in bed. Denies pain, SOB or fevers and chills. Has HD scheduled for 07/20/18, currently stable. 07/20: received hand held nebulizer, no other events, no f.c 07/21 : Pt seen by bedside, continues on breathing treatment, HD 07/22/18, no events 07/22: pending snf placement and outpatient hd 07/23: awake and resting in bed. no acute events, waiting placement and outpatient HD 07/24: no major events, waiting placement, seen by gi, recs reviewed, no complaints, on epo 07/25: CXR for patient c/o sob. O2 2L via NC administered. patient is A/A/Ox4. patient BLE edematous 07/26: Continues on oxygen of 3L/min via N/C. no acute respiratory distress is noted. Permacath to right chest for HD is intact 07/27: awake and comfortable, alert and oriented , next HD 07/28 07/28: Pt is seen by bedside, bipap is D/C, HD scheduled today, no events Objective Last 24 Hour Vital Signs Date Time Temp Pulse Resp B/P (MAP) Pulse Ox O2 Delivery O2 Flow Rate FiO2 07/28/18 16:18 Nasal Cannula 07/28/18 16:00 97.9 77 18 130/80 (97) 96 07/28/18 14:06 84 22 99 Nasal Cannula 2.0 28 07/28/18 13:59 83 22 97 Nasal Cannula 2.0 28 07/28/18 12:00 97.9 88 20 136/88 (104) 96 07/28/18 09:20 145/93 07/28/18 09:20 86 145/93 07/28/18 09:19 86 145/93 07/28/18 09:19 145/93 07/28/18 09:00 Room Air 07/28/18 08:09 69 22 99 Nasal Cannula 2.0 28 07/28/18 08:04 69 22 97 Nasal Cannula 2.0 28 07/28/18 08:04 97 Nasal Cannula 2.0 28 07/28/18 08:04 Nasal Cannula 2.0 28 07/28/18 08:00 97.9 86 18 145/93 (110) 97 07/28/18 04:18 97.9 75 18 127/85 (99) 96 07/27/18 23:39 97.9 68 18 121/88 (99) 99 07/27/18 22:41 98.0 07/27/18 21:56 89 20 99 Nasal Cannula 2.0 28 07/27/18 21:48 85 20 97 Nasal Cannula 2.0 28 07/27/18 21:47 97 Nasal Cannula 2.0 28 07/27/18 21:47 Nasal Cannula 2.0 28 07/27/18 21:09 79 125/92 07/27/18 20:09 Room Air 07/27/18 20:00 98.0 79 20 125/92 (103) 96 07/27/18 17:29 132/84 Intake and Output 07/27/18 07/28/18 18:59 06:59 Intake Total 920 ml 250 ml Output Total 850 ml Balance 920 ml -600 ml Intake Oral 720 ml 250 ml IV Total 200 ml Output Urine Total 850 ml Laboratory Tests 07/28/18 05:10: White Blood Count 7.2, Red Blood Count 3.20L, Hemoglobin 10.0L, Hematocrit 32.3L , Mean Corpuscular Volume 101H, Mean Corpuscular Hemoglobin 31.3H, Mean Corpuscular Hemoglobin Concent 31.0L, Red Cell Distribution Width 14.1, Platelet Count 223, Mean Platelet Volume 6.9, Neutrophils (%) (Auto) 68.4, Lymphocytes (%) (Auto) 12.4L, Monocytes (%) (Auto) 12.0H, Eosinophils (%) (Auto ) 5.8H, Basophils (%) (Auto) 1.4, Sodium Level 135L, Potassium Level 5.1, Chloride Level 99, Carbon Dioxide Level 28, Anion Gap 8, Blood Urea Nitrogen 44H , Creatinine 6.1H, Estimat Glomerular Filtration Rate 11.6, Glucose Level 104, Calcium Level 9.2 Height (Feet): 5 Height (Inches): 11.00 Weight (Pounds): 203 Objective Physical Exam General Appearance: A+O x2 NAD HEENT: normocephalic, atraumatic Neck: non-tender, normal alignment Respiratory/Chest: chest wall non-tender, lungs clear Cardiovascular/Chest: normal peripheral pulses, normal rate Abdomen: normal bowel sounds, non tender Extremities: normal range of motion Sahne Mary MD Jul 28, 2018 16:56
[2018-07-28 19:45] VITALS: BP 141/87
[2018-07-28] MEDS: Albuterol/Ipratropium 3ml neb HHN PRN (19:47)
[2018-07-28] MEDS: Miralax 17gm pkt ORAL SCH (20:52)
[2018-07-28] MEDS: Dyna-Hex 2% Top Sol 2oz TOPIC SCH (20:52)
[2018-07-28] MEDS: Tamsulosin 0.4mg cap ORAL SCH (20:52)
[2018-07-28] MEDS: HYDROcodone/Acetamin 10/325 tab ORAL PRN (22:57)
[2018-07-29] VITALS (7 sets, daily range): BP systolic 101–144; BP diastolic 70–92
[2018-07-29] MEDS: Albuterol/Ipratropium 3ml neb HHN PRN (03:35)
[2018-07-29 06:40] LABS: BASOPHILS % (AUTO) 1.3 % (0.0-2.0); EOSINOPHILS % (AUTO) 4.2 % (0.0-3.0); HEMATOCRIT 29.4 % (42.0-52.0); MEAN CORPUSCULAR VOLUME 101 FL (80-99); MONOCYTES % (AUTO) 14.4 % (1.0-10.0); NEUTROPHILS % (AUTO) 60.1 % (45.0-75.0); PLATELET COUNT 206 K/UL (150-450); RED BLOOD COUNT 2.92 M/UL (4.70-6.10); WHITE BLOOD COUNT 5.6 K/UL (4.8-10.8)
[2018-07-29 06:49] LABS: ANION GAP 7 mmol/L (5-15); BLOOD UREA NITROGEN 33 mg/dL (7-18); CALCIUM 8.8 MG/DL (8.5-10.1); CARBON DIOXIDE 31 MMOL/L (21-32); CHLORIDE 100 MMOL/L (98-107); CREATININE 4.9 MG/DL (0.55-1.30); POTASSIUM 4.6 MMOL/L (3.5-5.1); SODIUM 138 MMOL/L (136-145)
--- NOTE | 2018-07-29 08:46 | Pulmonology Progress Note ---
Assessment/Plan Problems: (1) Acute exacerbation of CHF (congestive heart failure) (2) Hypertensive cardiomegaly with heart failure (3) ACS (acute coronary syndrome) (4) Cocaine abuse (5) ARF (acute renal failure) (6) DDD (degenerative disc disease) (7) Epistaxis (8) Hypercapnic respiratory failure Assessment/Plan ASSESSMENT: The patient is a 58-year-old male with history of cocaine and tobacco abuse, congestive heart failure, and renal impairment, presenting with decompensated heart failure and abnormal renal function with marked uremia. He has previously been told he needs dialysis. He is now being admitted for acute coronary syndrome and likely need for dialysis. PROBLEM LIST: 1. Congestive heart failure with acute decompensated heart failure. 2. Abnormal renal function, likely cardiorenal syndrome now on HD 3. History of cocaine abuse with current positive tox screen. 4. Anemia/DARSHANA 5. Hypertension with hypertensive urgency. 6. Acute coronary syndrome/non-ST elevation myocardial infarction. 7. Acute on chronic LBP with radiculopathy ---> DDD/SS TREATMENT PLAN: -BiPAP 12/5 qHS and PRN - ENCOURAGE COMPLIANCE -Titrate FiO2 -PRN DUOnebs -HD per renal with UF as able -Control BP -F/U cards and renal recs -F/U heme recs -F/U GI recs ---> plan for outpatient EGD/colo -DVT Px: hep SQ -Pain control/supportive care - minimize narcotics/sedatives -F/U pain management recs -Appreciate psych eval, has capacity, F/U recs -SW assistance in placement Subjective Allergies: Coded Allergies: No Known Allergies (Unverified , 07/08/18) Subjective ROHINI AFVSS, stable O2 needs S/P HD Feels the same, no sig SOB, no CP, no F/C Objective Last 24 Hour Vital Signs Date Time Temp Pulse Resp B/P (MAP) Pulse Ox O2 Delivery O2 Flow Rate FiO2 07/29/18 04:18 97.5 84 17 101/72 (82) 94 07/29/18 03:42 84 20 98 Nasal Cannula 2.0 28 07/29/18 03:35 81 20 96 Nasal Cannula 2.0 28 07/29/18 00:00 97.7 83 18 133/88 (103) 93 07/28/18 23:27 97.3 07/28/18 20:52 82 141/87 07/28/18 20:11 Room Air 07/28/18 19:56 82 20 97 Nasal Cannula 2.0 28 07/28/18 19:48 Nasal Cannula 2.0 28 07/28/18 19:45 80 20 95 Nasal Cannula 2.0 28 07/28/18 19:45 97.3 82 17 141/87 (105) 98 07/28/18 19:30 95 Nasal Cannula 2.0 28 07/28/18 17:55 142/87 07/28/18 16:18 Nasal Cannula 07/28/18 16:00 97.9 77 18 130/80 (97) 96 07/28/18 14:06 84 22 99 Nasal Cannula 2.0 28 07/28/18 13:59 83 22 97 Nasal Cannula 2.0 28 07/28/18 12:00 97.9 88 20 136/88 (104) 96 07/28/18 09:20 145/93 07/28/18 09:20 86 145/93 07/28/18 09:19 86 145/93 07/28/18 09:19 145/93 07/28/18 09:00 Room Air Intake and Output 07/28/18 07/29/18 18:59 06:59 Output Total 3000 ml 750 ml Balance -3000 ml -750 ml Output Urine Total 750 ml Hemodialysis UF 3000 ml # Voids 4 # Bowel Movements 2 General Appearance: WD/WN, no acute distress HEENT: normocephalic, atraumatic, anicteric, mucous membranes moist Respiratory/Chest: chest wall non-tender, lungs clear, normal breath sounds, no respiratory distress, no accessory muscle use Cardiovascular: normal peripheral pulses, normal rate, regular rhythm Abdomen: normal bowel sounds, soft, non tender, no organomegaly, non distended , no mass Extremities: no cyanosis, no clubbing, no edema Laboratory Tests 07/29/18 05:10: White Blood Count 5.6, Red Blood Count 2.92L, Hemoglobin 9.0L, Hematocrit 29.4L , Mean Corpuscular Volume 101H, Mean Corpuscular Hemoglobin 30.8, Mean Corpuscular Hemoglobin Concent 30.6L, Red Cell Distribution Width 14.0, Platelet Count 206, Mean Platelet Volume 6.5, Neutrophils (%) (Auto) 60.1, Lymphocytes (%) (Auto) 20.0, Monocytes (%) (Auto) 14.4H, Eosinophils (%) (Auto) 4.2H, Basophils (%) (Auto) 1.3, Sodium Level 138, Potassium Level 4.6, Chloride Level 100, Carbon Dioxide Level 31, Anion Gap 7, Blood Urea Nitrogen 33H, Creatinine 4.9H, Estimat Glomerular Filtration Rate 14.9, Glucose Level 90, Calcium Level 8.8 Current Medications Medications (Trade) Dose Ordered Sig/Harish Route PRN Reason Start Time Stop Time Status Last Admin Dose Admin Acetaminophen (Tylenol) 650 mg Q4H PRN ORAL Mild Pain/Temp > 100.5 07/26/18 22:00 08/25/18 21:59 07/27/18 02:11 Acetaminophen/ Hydrocodone Bitart ([place] 10/325) 1 tab Q4H PRN ORAL SEVERE Pain 07/27/18 17:51 08/03/18 17:50 07/28/18 22:57 Albuterol/ Ipratropium (Albuterol/ Ipratropium) 3 ml Q4H PRN HHN Shortness of Breath 07/26/18 22:00 07/31/18 21:59 07/29/18 03:35 Aspirin (ASA) 81 mg DAILY ORAL 07/27/18 09:00 08/08/18 08:59 07/28/18 09:20 Chlorhexidine Gluconate ([place]urel-Hex 2%) 1 applic DAILY@2000 TOPIC 07/27/18 20:00 08/25/18 19:59 07/28/18 20:52 Clonidine HCl (Catapres Tab) 0.1 mg Q4H PRN ORAL bp over 165 syst 07/26/18 22:00 08/25/18 21:59 Dextrose (Dextrose 50%) 25 ml Q30M PRN IV Hypoglycemia 07/26/18 22:00 08/07/18 16:29 Dextrose (Dextrose 50%) 50 ml Q30M PRN IV Hypoglycemia 07/26/18 22:00 08/07/18 16:29 Diltiazem HCl (Cardizem CD) 240 mg DAILY ORAL 07/27/18 09:00 08/25/18 08:59 07/28/18 09:20 Diphenhydramine HCl (Benadryl) 25 mg Q6H PRN ORAL Itching/Pruritis 07/26/18 22:30 08/07/18 16:29 07/28/18 22:56 Docusate Sodium (Colace) 100 mg THREE TIMES A DAY ORAL 07/27/18 09:00 08/20/18 17:59 07/27/18 17:29 Epoetin [place] (Procrit (for non ESRD use)) 10,000 units FRI-FRI-FRI SUBQ 07/27/18 21:00 08/12/18 21:59 07/27/18 21:10 Gabapentin (Neurontin) 300 mg THREE TIMES A DAY ORAL 07/27/18 09:00 08/17/18 17:59 07/28/18 17:55 Heparin Sodium (Porcine) (Heparin 5000 units/ml) 5,000 units EVERY 12 HOURS SUBQ 07/27/18 09:00 08/14/18 21:59 07/28/18 20:53 Isosorbide Mononitrate (Imdur) 60 mg DAILY ORAL 07/27/18 09:00 08/11/18 08:59 07/28/18 09:19 Lisinopril (Prinivil) 20 mg BID ORAL 07/27/18 09:00 08/19/18 08:59 07/28/18 17:55 Metoprolol Tartrate (Lopressor) 100 mg Q12HR ORAL 07/27/18 09:00 08/22/18 20:59 07/28/18 20:52 Pantoprazole (Protonix) 40 mg DAILY ORAL 07/27/18 09:00 08/10/18 21:59 07/28/18 09:21 Polyethylene Glycol (Miralax) 17 gm BEDTIME ORAL 07/27/18 21:00 08/20/18 20:59 07/28/18 20:52 Sevelamer Carbonate (Renvela) 800 mg THREE TIMES A DAY ORAL 07/27/18 09:00 08/08/18 17:59 07/28/18 17:55 Tamsulosin HCl (Flomax) 0.4 mg QHS ORAL 07/27/18 21:00 08/09/18 12:52 07/28/18 20:52 Edgard Webb MD Jul 29, 2018 08:46
--- NOTE | 2018-07-29 08:49 | General Progress Note ---
Assessment/Plan Assessment/Plan (1) Lumbar DDD (2) Lumbar Spondylosis (3) Cocaine Abuse Patient will be continued on [place] as needed. We will start patient on Robaxin 500mg Q8H PRN muscle spasm D/w Dr. Rosado and he concurred. Subjective Date patient seen: Jul 29, 2018 Time patient seen: 07:15 - am Allergies: Coded Allergies: No Known Allergies (Unverified , 07/08/18) Subjective REVIEW OF SYSTEMS: Denies rash, fever, chills, sweating, dizziness, drowsiness, blurred vision, or change in weight. No chest pain. No nausea, vomiting, diarrhea, or blood in the stool or urine. No bowel or bladder incontinence. He is complaining of low back pain. SUBJECTIVE: Patient is in bed and c/o muscle spasms d/w him about a muscle relaxer and he understands. He has taken one norco in the last 24hrs. Objective Last 24 Hour Vital Signs Date Time Temp Pulse Resp B/P (MAP) Pulse Ox O2 Delivery O2 Flow Rate FiO2 07/29/18 08:00 97.6 92 20 144/91 (108) 94 07/29/18 04:18 97.5 84 17 101/72 (82) 94 07/29/18 03:42 84 20 98 Nasal Cannula 2.0 28 07/29/18 03:35 81 20 96 Nasal Cannula 2.0 28 07/29/18 00:00 97.7 83 18 133/88 (103) 93 07/28/18 23:27 97.3 07/28/18 20:52 82 141/87 07/28/18 20:11 Room Air 07/28/18 19:56 82 20 97 Nasal Cannula 2.0 28 07/28/18 19:48 Nasal Cannula 2.0 28 07/28/18 19:45 80 20 95 Nasal Cannula 2.0 28 07/28/18 19:45 97.3 82 17 141/87 (105) 98 07/28/18 19:30 95 Nasal Cannula 2.0 28 07/28/18 17:55 142/87 07/28/18 16:18 Nasal Cannula 07/28/18 16:00 97.9 77 18 130/80 (97) 96 07/28/18 14:06 84 22 99 Nasal Cannula 2.0 28 07/28/18 13:59 83 22 97 Nasal Cannula 2.0 28 07/28/18 12:00 97.9 88 20 136/88 (104) 96 07/28/18 09:20 145/93 07/28/18 09:20 86 145/93 07/28/18 09:19 86 145/93 07/28/18 09:19 145/93 07/28/18 09:00 Room Air Intake and Output 07/28/18 07/29/18 18:59 06:59 Output Total 3000 ml 750 ml Balance -3000 ml -750 ml Output Urine Total 750 ml Hemodialysis UF 3000 ml # Voids 4 # Bowel Movements 2 Laboratory Tests 07/29/18 05:10: White Blood Count 5.6, Red Blood Count 2.92L, Hemoglobin 9.0L, Hematocrit 29.4L , Mean Corpuscular Volume 101H, Mean Corpuscular Hemoglobin 30.8, Mean Corpuscular Hemoglobin Concent 30.6L, Red Cell Distribution Width 14.0, Platelet Count 206, Mean Platelet Volume 6.5, Neutrophils (%) (Auto) 60.1, Lymphocytes (%) (Auto) 20.0, Monocytes (%) (Auto) 14.4H, Eosinophils (%) (Auto) 4.2H, Basophils (%) (Auto) 1.3, Sodium Level 138, Potassium Level 4.6, Chloride Level 100, Carbon Dioxide Level 31, Anion Gap 7, Blood Urea Nitrogen 33H, Creatinine 4.9H, Estimat Glomerular Filtration Rate 14.9, Glucose Level 90, Calcium Level 8.8 Height (Feet): 5 Height (Inches): 11.00 Weight (Pounds): 197 Objective GENERAL: Alert, awake, and oriented. LUNGS: Decreased breath sounds bilaterally. HEART: S1 and S2 regular. ABDOMEN: Soft, nontender. EXTREMITIES: No CCE NEURO: No changes. James Ramirez Jul 29, 2018 08:49
[2018-07-29] MEDS: Docusate 100mg cap ORAL SCH ×3 (09:00→17:14)
[2018-07-29] MEDS: Aspirin Baby 81mg ORAL SCH (09:04)
[2018-07-29] MEDS: dilTIAZem HCl CD 240mg cap ORAL SCH (09:05)
[2018-07-29] MEDS: Imdur 30mg tab ORAL SCH (09:05)
[2018-07-29] MEDS: Lisinopril 20mg tab ORAL SCH ×2 (09:05→17:15)
[2018-07-29] MEDS: Heparin 5000 units/ml inj SUBQ SCH ×2 (09:07→21:00)
--- NOTE | 2018-07-29 11:51 | GI Progress Note ---
Assessment/Plan Problems: (1) Macrocytic anemia ICD Codes: D53.9 - Nutritional anemia, unspecified SNOMED: 34253122 (2) Iron deficiency ICD Codes: E61.1 - Iron deficiency SNOMED: 62254361 (3) Constipation ICD Codes: K59.00 - Constipation, unspecified SNOMED: 07168428 (4) Cocaine abuse ICD Codes: F14.10 - Cocaine abuse, uncomplicated SNOMED: 28693564 (5) Pancreatitis ICD Codes: K85.90 - Acute pancreatitis without necrosis or infection, unspecified SNOMED: 31459849 Status: stable Status Narrative Discussed with Dr. Shea Assessment/Plan Pancreatitis now resolved Hepatitis panel negative history of hernia repair Stable H&H Patient will require cardiac clearance prior to any GI procedures, will consider pending work up OB stool r/o GI bleed not collected monitor H&H, prn transfusions bowel regime ppi venofer renal diet fu labs Otherwise outpatient GI procedures The patient was seen and examined at bedside and all new and available data was reviewed in the patients chart. I agree with the above findings, impression and plan. (Patient seen earlier today. Signature stamp does not reflect patient encounter time.). - Nikolas Shea MD Subjective Subjective had BM has complaint of lower abdominal pain, believes there is problem with his hernia mesh Objective Last 24 Hour Vital Signs Date Time Temp Pulse Resp B/P (MAP) Pulse Ox O2 Delivery O2 Flow Rate FiO2 07/29/18 09:05 92 144/91 07/29/18 09:05 144/91 07/29/18 09:05 144/91 07/29/18 09:05 92 144/91 07/29/18 09:00 Room Air 07/29/18 08:58 Room Air 07/29/18 08:58 91 Room Air 21 07/29/18 08:58 87 20 Room Air 21 07/29/18 08:00 97.6 92 20 144/91 (108) 94 07/29/18 04:18 97.5 84 17 101/72 (82) 94 07/29/18 03:42 84 20 98 Nasal Cannula 2.0 28 07/29/18 03:35 81 20 96 Nasal Cannula 2.0 28 07/29/18 00:00 97.7 83 18 133/88 (103) 93 07/28/18 23:27 97.3 07/28/18 20:52 82 141/87 07/28/18 20:11 Room Air 07/28/18 19:56 82 20 97 Nasal Cannula 2.0 28 07/28/18 19:48 Nasal Cannula 2.0 28 07/28/18 19:45 80 20 95 Nasal Cannula 2.0 28 07/28/18 19:45 97.3 82 17 141/87 (105) 98 07/28/18 19:30 95 Nasal Cannula 2.0 28 07/28/18 17:55 142/87 07/28/18 16:18 Nasal Cannula 07/28/18 16:00 97.9 77 18 130/80 (97) 96 07/28/18 14:06 84 22 99 Nasal Cannula 2.0 28 07/28/18 13:59 83 22 97 Nasal Cannula 2.0 28 07/28/18 12:00 97.9 88 20 136/88 (104) 96 Intake and Output 07/28/18 07/29/18 19:00 07:00 Output Total 3000 ml 750 ml Balance -3000 ml -750 ml Output Urine Total 750 ml Hemodialysis UF 3000 ml # Voids 4 # Bowel Movements 2 Laboratory Tests Test 07/29/18 05:10 White Blood Count 5.6 K/UL (4.8-10.8) Red Blood Count 2.92 M/UL (4.70-6.10) L Hemoglobin 9.0 G/DL (14.2-18.0) L Hematocrit 29.4 % (42.0-52.0) L Mean Corpuscular Volume 101 FL (80-99) H Mean Corpuscular Hemoglobin 30.8 PG (27.0-31.0) Mean Corpuscular Hemoglobin Concent 30.6 G/DL (32.0-36.0) L Red Cell Distribution Width 14.0 % (11.6-14.8) Platelet Count 206 K/UL (150-450) Mean Platelet Volume 6.5 FL (6.5-10.1) Neutrophils (%) (Auto) 60.1 % (45.0-75.0) Lymphocytes (%) (Auto) 20.0 % (20.0-45.0) Monocytes (%) (Auto) 14.4 % (1.0-10.0) H Eosinophils (%) (Auto) 4.2 % (0.0-3.0) H Basophils (%) (Auto) 1.3 % (0.0-2.0) Sodium Level 138 MMOL/L (136-145) Potassium Level 4.6 MMOL/L (3.5-5.1) Chloride Level 100 MMOL/L (98-107) Carbon Dioxide Level 31 MMOL/L (21-32) Anion Gap 7 mmol/L (5-15) Blood Urea Nitrogen 33 mg/dL (7-18) H Creatinine 4.9 MG/DL (0.55-1.30) H Estimat Glomerular Filtration Rate 14.9 mL/min (>60) Glucose Level 90 MG/DL (74-106) Calcium Level 8.8 MG/DL (8.5-10.1) Height (Feet): 5 Height (Inches): 11.00 Weight (Pounds): 197 General Appearance: WD/WN, no apparent distress, alert Cardiovascular: normal rate Respiratory/Chest: normal breath sounds, no respiratory distress Abdominal Exam: normal bowel sounds, non tender, soft Extremities: normal range of motion, non-tender Daja Murdock NP Jul 29, 2018 11:51
--- NOTE | 2018-07-29 14:05 | Cardiac Electrophysiology PN ---
Assessment/Plan Assessment/Plan 1. Troponin leak in the setting of cocaine use and renal failure. Levels are flat Avoid beta-pablo in view of active cocaine use. On aspirin and Lipitor EF 45%. No CP 2. Hypertension. On Cardizem 240 daily, Metoprolol 100 bid, Imdur 60, Lisinopril 20 bid [address] HD per Dr Cm 3. End-stage renal disease, on HD by Dr. Cm 4. Substance use with cocaine. 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 5. Recent pneumonia. 6. Congestive heart failure. EF 45% 7. Severe anemia s/p PRBCs . DW RN Subjective Subjective Feeling better.No CP or SOB. Still urinating despite HD Objective Last 24 Hour Vital Signs Date Time Temp Pulse Resp B/P (MAP) Pulse Ox O2 Delivery O2 Flow Rate FiO2 07/29/18 12:00 96.3 85 20 139/92 (108) 99 07/29/18 09:05 92 144/91 07/29/18 09:05 144/91 07/29/18 09:05 144/91 07/29/18 09:05 92 144/91 07/29/18 09:00 Room Air 07/29/18 08:58 Room Air 07/29/18 08:58 91 Room Air 21 07/29/18 08:58 87 20 Room Air 21 07/29/18 08:00 97.6 92 20 144/91 (108) 94 07/29/18 04:18 97.5 84 17 101/72 (82) 94 07/29/18 03:42 84 20 98 Nasal Cannula 2.0 07/29/18 03:35 81 20 96 Nasal Cannula 2.0 28 07/29/18 00:00 97.7 83 18 133/88 (103) 93 07/28/18 23:27 97.3 07/28/18 20:52 82 141/87 07/28/18 20:11 Room Air 07/28/18 19:56 82 20 97 Nasal Cannula 2.0 28 07/28/18 19:48 Nasal Cannula 2.0 28 07/28/18 19:45 80 20 95 Nasal Cannula 2.0 28 07/28/18 19:45 97.3 82 17 141/87 (105) 98 07/28/18 19:30 95 Nasal Cannula 2.0 28 07/28/18 17:55 142/87 07/28/18 16:18 Nasal Cannula 07/28/18 16:00 97.9 77 18 130/80 (97) 96 07/28/18 14:06 84 22 99 Nasal Cannula 2.0 28 Intake and Output 07/28/18 07/29/18 19:00 07:00 Output Total 3000 ml 750 ml Balance -3000 ml -750 ml Output Urine Total 750 ml Hemodialysis UF 3000 ml # Voids 4 # Bowel Movements 2 Laboratory Tests Test 07/29/18 05:10 White Blood Count 5.6 K/UL (4.8-10.8) Red Blood Count 2.92 M/UL (4.70-6.10) L Hemoglobin 9.0 G/DL (14.2-18.0) L Hematocrit 29.4 % (42.0-52.0) L Mean Corpuscular Volume 101 FL (80-99) H Mean Corpuscular Hemoglobin 30.8 PG (27.0-31.0) Mean Corpuscular Hemoglobin Concent 30.6 G/DL (32.0-36.0) L Red Cell Distribution Width 14.0 % (11.6-14.8) Platelet Count 206 K/UL (150-450) Mean Platelet Volume 6.5 FL (6.5-10.1) Neutrophils (%) (Auto) 60.1 % (45.0-75.0) Lymphocytes (%) (Auto) 20.0 % (20.0-45.0) Monocytes (%) (Auto) 14.4 % (1.0-10.0) H Eosinophils (%) (Auto) 4.2 % (0.0-3.0) H Basophils (%) (Auto) 1.3 % (0.0-2.0) Sodium Level 138 MMOL/L (136-145) Potassium Level 4.6 MMOL/L (3.5-5.1) Chloride Level 100 MMOL/L (98-107) Carbon Dioxide Level 31 MMOL/L (21-32) Anion Gap 7 mmol/L (5-15) Blood Urea Nitrogen 33 mg/dL (7-18) H Creatinine 4.9 MG/DL (0.55-1.30) H Estimat Glomerular Filtration Rate 14.9 mL/min (>60) Glucose Level 90 MG/DL (74-106) Calcium Level 8.8 MG/DL (8.5-10.1) Objective HEAD AND NECK: No JVD. LUNGS: Decreased breath sounds. Right IJ PermCath CARDIOVASCULAR: Regular S1 and S2 with no gallop or murmur. ABDOMEN: Soft. EXTREMITIES: 1 plus pitting edema. German Gray MD Jul 29, 2018 14:05
--- NOTE | 2018-07-29 15:07 | Nephrology Progress Note ---
Assessment/Plan Problem List: (1) Renal failure (ARF), acute on chronic (2) Cocaine abuse (3) Acute exacerbation of CHF (congestive heart failure) (4) Hypertensive cardiomegaly with heart failure (5) Volume overload Assessment Acute on Chronic renal failure Anemia Elevated troponin Hypertensive renal and heart disease Cocaine abuse Cardiomyopathy Plan next HD 07/30 readjust bp meds Dc planning increase Neurontin transfuse one unit 07/[address] Moura 2D Echo 55% ej fx BRIDGETT kidneys * Mild fullness of the bilateral renal collecting systems without radiographically appreciable stone and observed bilateral ureteral jets. Findings may be related to mild bladder distention. Consider repeat exam after bladder decompression. monitor renal parameters Avoid nephrotoxics renal diet flomax Subjective ROS Limited/Unobtainable: No Constitutional: Reports: malaise Objective Objective Last 24 Hour Vital Signs Date Time Temp Pulse Resp B/P (MAP) Pulse Ox O2 Delivery O2 Flow Rate FiO2 07/29/18 12:00 96.3 85 20 139/92 (108) 99 07/29/18 09:05 92 144/91 07/29/18 09:05 144/91 07/29/18 09:05 144/91 07/29/18 09:05 92 144/91 07/29/18 09:00 Room Air 07/29/18 08:58 Room Air 07/29/18 08:58 91 Room Air 21 07/29/18 08:58 87 20 Room Air 21 07/29/18 08:00 97.6 92 20 144/91 (108) 94 07/29/18 04:18 97.5 84 17 101/72 (82) 94 07/29/18 03:42 84 20 98 Nasal Cannula 2.0 28 07/29/18 03:35 81 20 96 Nasal Cannula 2.0 28 07/29/18 00:00 97.7 83 18 133/88 (103) 93 07/28/18 23:27 97.3 07/28/18 20:52 82 141/87 07/28/18 20:11 Room Air 07/28/18 19:56 82 20 97 Nasal Cannula 2.0 28 07/28/18 19:48 Nasal Cannula 2.0 28 07/28/18 19:45 80 20 95 Nasal Cannula 2.0 28 07/28/18 19:45 97.3 82 17 141/87 (105) 98 07/28/18 19:30 95 Nasal Cannula 2.0 28 07/28/18 17:55 142/87 07/28/18 16:18 Nasal Cannula 07/28/18 16:00 97.9 77 18 130/80 (97) 96 Intake and Output 07/28/18 07/29/18 19:00 07:00 Output Total 3000 ml 750 ml Balance -3000 ml -750 ml Output Urine Total 750 ml Hemodialysis UF 3000 ml # Voids 4 # Bowel Movements 2 Laboratory Tests 07/29/18 05:10: White Blood Count 5.6, Red Blood Count 2.92L, Hemoglobin 9.0L, Hematocrit 29.4L , Mean Corpuscular Volume 101H, Mean Corpuscular Hemoglobin 30.8, Mean Corpuscular Hemoglobin Concent 30.6L, Red Cell Distribution Width 14.0, Platelet Count 206, Mean Platelet Volume 6.5, Neutrophils (%) (Auto) 60.1, Lymphocytes (%) (Auto) 20.0, Monocytes (%) (Auto) 14.4H, Eosinophils (%) (Auto) 4.2H, Basophils (%) (Auto) 1.3, Sodium Level 138, Potassium Level 4.6, Chloride Level 100, Carbon Dioxide Level 31, Anion Gap 7, Blood Urea Nitrogen 33H, Creatinine 4.9H, Estimat Glomerular Filtration Rate 14.9, Glucose Level 90, Calcium Level 8.8 Height (Feet): 5 Height (Inches): 11.00 Weight (Pounds): 197 General Appearance: no apparent distress Cardiovascular: tachycardia Respiratory/Chest: decreased breath sounds Abdomen: soft Objective no change Richar Cm MD Jul 29, 2018 15:07
--- NOTE | 2018-07-29 16:28 | General Progress Note ---
Assessment/Plan Assessment/Plan # Anemia of chronic disease, multifactorial, grace on ckd --> Anemia w/u has been reviewed, no eric noted --> No evidence of hemolysis is noted, peripheral smear is wnl --> Hgb goal >7. Transfuse prn. --> continue on epo sq --> on iron # Congestive heart failure with acute decompensated heart failure. --> per cards management --> In tele unit --> on diuresis # Abnormal renal function, likely cardiorenal syndrome. --> Nephrology is following appreciate recs --> HD 07/30/18 --> BRIDGETT kidneys with minimal fullness, seen by renal, echogenicity is wnl # History of cocaine abuse with current positive tox screen. --> recommend cessation # Hypertension with hypertensive urgency. --> On Norvasc 5 mg bid, Hydralazine,Imdur and Clonidine patch as needed --> Avoid beta-blockers for active cocaine # Acute coronary syndrome/non-ST elevation myocardial infarction. --> per cards The date and time note entered does not reflect time and date patient was seen. GREATLY APPRECIATE CONSULTATION. Subjective Constitutional: Denies: no symptoms, chills, diaphoresis, fever, malaise, weakness, other HEENT: Denies: no symptoms, eye pain, blurred vision, tearing, double vision, ear pain, ear discharge, nose pain, nose congestion, throat pain, throat swelling, mouth pain, mouth swelling, other Cardiovascular: Denies: no symptoms, chest pain, edema, irregular heart rate, lightheadedness, palpitations, syncope, other Respiratory: Denies: no symptoms, cough, orthopnea, shortness of breath, SOB with excertion, SOB at rest, sputum, stridor, wheezing, other Gastrointestinal/Abdominal: Denies: no symptoms, abdomen distended, abdominal pain, black stools, tarry stools, blood in stool, constipated, diarrhea, difficulty swallowing, nausea, poor appetite, poor fluid intake, rectal bleeding , vomiting, other Genitourinary: Denies: no symptoms, burning, discharge, frequency, flank pain, hematuria, incontinence, pain, urgency, other Neurologic/Psychiatric: Denies: no symptoms, anxiety, depressed, emotional problems, headache, numbness, paresthesia, pre-existing deficit, seizure, tingling, tremors, weakness, other Endocrine: Denies: no symptoms, excessive sweating, flushing, intolerance to cold, intolerance to heat, increased hunger, increased thirst, increased urine, unexplained weight gain, unexplained weight loss, other Hematologic/Lymphatic: Denies: no symptoms, anemia, easy bleeding, easy bruising, other Allergies: Coded Allergies: No Known Allergies (Unverified , 07/08/18) Subjective 07/12: no events, cr trending, h/h stable, on epo 07/14: transfuse one unit 07/13, diruresed, refused mendez, seen by cards, bp better 07/15 : Pt is seen in the room, awake and alert, S/P blood transfusion, refusing HD 07/16 : Pt is awake and resting in bed. waiting on sister to make HD decision, no events 07/17 Pt is seen in the room,awake and alert, appears to be agreeable for placement of dialysis cath and dialysis . 07/18: Pt is seen in the room, No CP or SOB. Had HD today. 07/19: Pt is awake and resting in bed. Denies pain, SOB or fevers and chills. Has HD scheduled for 07/20/18, currently stable. 07/20: received hand held nebulizer, no other events, no f.c 07/21 : Pt seen by bedside, continues on breathing treatment, HD 07/22/18, no events 07/22: pending snf placement and outpatient hd 07/23: awake and resting in bed. no acute events, waiting placement and outpatient HD 07/24: no major events, waiting placement, seen by gi, recs reviewed, no complaints, on epo 07/25: CXR for patient c/o sob. O2 2L via NC administered. patient is A/A/Ox4. patient BLE edematous 07/26: Continues on oxygen of 3L/min via N/C. no acute respiratory distress is noted. Permacath to right chest for HD is intact 07/27: awake and comfortable, alert and oriented , next HD 07/28 07/28: Pt is seen by bedside, bipap is D/C, HD scheduled today, no events 07/29: Pt is awake and calm, Denies pain, SOB or fevers and chills, next HD 07/30. Objective Last 24 Hour Vital Signs Date Time Temp Pulse Resp B/P (MAP) Pulse Ox O2 Delivery O2 Flow Rate FiO2 07/29/18 16:00 96.8 80 20 129/92 (104) 95 07/29/18 12:00 96.3 85 20 139/92 (108) 99 07/29/18 09:05 92 144/91 07/29/18 09:05 144/91 07/29/18 09:05 144/91 07/29/18 09:05 92 144/91 07/29/18 09:00 Room Air 07/29/18 08:58 Room Air 07/29/18 08:58 91 Room Air 21 07/29/18 08:58 87 20 Room Air 21 07/29/18 08:00 97.6 92 20 144/91 (108) 94 07/29/18 04:18 97.5 84 17 101/72 (82) 94 07/29/18 03:42 84 20 98 Nasal Cannula 2.0 28 07/29/18 03:35 81 20 96 Nasal Cannula 2.0 28 07/29/18 00:00 97.7 83 18 133/88 (103) 93 07/28/18 23:27 97.3 07/28/18 20:52 82 141/87 07/28/18 20:11 Room Air 07/28/18 19:56 82 20 97 Nasal Cannula 2.0 28 07/28/18 19:48 Nasal Cannula 2.0 28 07/28/18 19:45 80 20 95 Nasal Cannula 2.0 28 07/28/18 19:45 97.3 82 17 141/87 (105) 98 07/28/18 19:30 95 Nasal Cannula 2.0 28 07/28/18 17:55 142/87 Intake and Output 07/28/18 07/29/18 19:00 07:00 Output Total 3000 ml 750 ml Balance -3000 ml -750 ml Output Urine Total 750 ml Hemodialysis UF 3000 ml # Voids 4 # Bowel Movements 2 Laboratory Tests 07/29/18 05:10: White Blood Count 5.6, Red Blood Count 2.92L, Hemoglobin 9.0L, Hematocrit 29.4L , Mean Corpuscular Volume 101H, Mean Corpuscular Hemoglobin 30.8, Mean Corpuscular Hemoglobin Concent 30.6L, Red Cell Distribution Width 14.0, Platelet Count 206, Mean Platelet Volume 6.5, Neutrophils (%) (Auto) 60.1, Lymphocytes (%) (Auto) 20.0, Monocytes (%) (Auto) 14.4H, Eosinophils (%) (Auto) 4.2H, Basophils (%) (Auto) 1.3, Sodium Level 138, Potassium Level 4.6, Chloride Level 100, Carbon Dioxide Level 31, Anion Gap 7, Blood Urea Nitrogen 33H, Creatinine 4.9H, Estimat Glomerular Filtration Rate 14.9, Glucose Level 90, Calcium Level 8.8 Height (Feet): 5 Height (Inches): 11.00 Weight (Pounds): 197 Objective Physical Exam General Appearance: A+O x2 NAD HEENT: normocephalic, atraumatic Neck: non-tender, normal alignment Respiratory/Chest: chest wall non-tender, lungs clear Cardiovascular/Chest: normal peripheral pulses, normal rate Abdomen: normal bowel sounds, non tender Extremities: normal range of motion Shane Mary MD Jul 29, 2018 16:28
[2018-07-29] MEDS: Tamsulosin 0.4mg cap ORAL SCH (20:59)
[2018-07-29] MEDS: Dyna-Hex 2% Top Sol 2oz TOPIC SCH (20:59)
[2018-07-29] MEDS: Epogen (for ESRD on dialysis) SUBQ SCH (21:00)
[2018-07-29] MEDS: Miralax 17gm pkt ORAL SCH (21:01)
[2018-07-30 04:15] VITALS: BP 138/82
[2018-07-30] MEDS: Albuterol/Ipratropium 3ml neb HHN PRN (05:53)
[2018-07-30 08:00] VITALS: BP 135/80
[2018-07-30 08:12] LABS: BASOPHILS % (AUTO) 1.6 % (0.0-2.0); EOSINOPHILS % (AUTO) 5.9 % (0.0-3.0); HEMATOCRIT 31.4 % (42.0-52.0); HEMOGLOBIN 9.6 G/DL (14.2-18.0); LYMPHOCYTES % (AUTO) 17.8 % (20.0-45.0); MEAN CORPUSCULAR VOLUME 100 FL (80-99); MONOCYTES % (AUTO) 15.3 % (1.0-10.0); NEUTROPHILS % (AUTO) 59.4 % (45.0-75.0); PLATELET COUNT 227 K/UL (150-450); RED BLOOD COUNT 3.13 M/UL (4.70-6.10); RED CELL DISTRIBUTION WIDTH 14.8 % (11.6-14.8); WHITE BLOOD COUNT 6.5 K/UL (4.8-10.8)
[2018-07-30] MEDS: Lisinopril 20mg tab ORAL SCH ×2 (08:12→17:02)
[2018-07-30] MEDS: Imdur 30mg tab ORAL SCH (08:12)
[2018-07-30] MEDS: dilTIAZem HCl CD 240mg cap ORAL SCH (08:12)
[2018-07-30] MEDS: Docusate 100mg cap ORAL SCH ×3 (08:12→17:03)
[2018-07-30] MEDS: Heparin 5000 units/ml inj SUBQ SCH ×2 (08:18→21:41)
[2018-07-30 08:29] LABS: ANION GAP 7 mmol/L (5-15); BLOOD UREA NITROGEN 42 mg/dL (7-18); CARBON DIOXIDE 29 MMOL/L (21-32); CHLORIDE 102 MMOL/L (98-107); CREATININE 6.1 MG/DL (0.55-1.30); PHOSPHORUS 3.1 MG/DL (2.5-4.9); POTASSIUM 4.6 MMOL/L (3.5-5.1); SODIUM 138 MMOL/L (136-145)
[2018-07-30] MEDS: Aspirin Baby 81mg ORAL SCH (09:00)
--- NOTE | 2018-07-30 10:02 | General Progress Note ---
Assessment/Plan Assessment/Plan (1) Lumbar DDD (2) Lumbar Spondylosis (3) Cocaine Abuse Patient will be continued on Robaxin and [place] as needed. D/w Dr. Rosado and he concurred. Subjective Date patient seen: Jul 30, 2018 Time patient seen: 08:15 - am Allergies: Coded Allergies: No Known Allergies (Unverified , 07/08/18) Subjective REVIEW OF SYSTEMS: Denies rash, fever, chills, sweating, dizziness, drowsiness, blurred vision, or change in weight. No chest pain. No nausea, vomiting, diarrhea, or blood in the stool or urine. No bowel or bladder incontinence. He is complaining of low back pain. SUBJECTIVE: Patient laying in bed. He is showing no signs of pain or distress. Pain has been stable. Has not requested the [place] or Robaxin in the last 24hrs. Objective Last 24 Hour Vital Signs Date Time Temp Pulse Resp B/P (MAP) Pulse Ox O2 Delivery O2 Flow Rate FiO2 07/30/18 09:00 Room Air 07/30/18 08:12 138/82 07/30/18 08:12 138/82 07/30/18 08:12 80 138/82 07/30/18 08:11 80 138/82 07/30/18 08:00 Nasal Cannula 2.0 28 07/30/18 08:00 96 Nasal Cannula 2.0 28 07/30/18 08:00 98.3 80 20 135/80 (98) 97 07/30/18 08:00 83 17 Nasal Cannula 2.0 28 07/30/18 05:54 80 20 97 Nasal Cannula 2.0 28 07/30/18 05:43 78 20 95 Nasal Cannula 2.0 28 07/30/18 04:15 98.0 81 19 138/82 (100) 96 07/29/18 23:37 98.1 83 19 123/70 (87) 94 07/29/18 20:59 92 141/87 07/29/18 20:18 Room Air 07/29/18 20:13 98.5 92 19 141/87 (105) 95 07/29/18 20:00 90 18 Nasal Cannula 2.0 28 07/29/18 20:00 95 Nasal Cannula 2.0 28 07/29/18 20:00 Nasal Cannula 2.0 28 07/29/18 17:15 129/92 07/29/18 16:00 96.8 80 20 129/92 (104) 95 07/29/18 12:00 96.3 85 20 139/92 (108) 99 Intake and Output 07/29/18 07/30/18 18:59 06:59 Intake Total 600 ml 500 ml Output Total 550 ml Balance 50 ml 500 ml Intake Oral 600 ml 500 ml Output Urine Total 550 ml Laboratory Tests 07/30/18 07:37: White Blood Count 6.5, Red Blood Count 3.13L, Hemoglobin 9.6L, Hematocrit 31.4L , Mean Corpuscular Volume 100H, Mean Corpuscular Hemoglobin 30.7, Mean Corpuscular Hemoglobin Concent 30.6L, Red Cell Distribution Width 14.8, Platelet Count 227, Mean Platelet Volume 6.9, Neutrophils (%) (Auto) 59.4, Lymphocytes (%) (Auto) 17.8L, Monocytes (%) (Auto) 15.3H, Eosinophils (%) (Auto ) 5.9H, Basophils (%) (Auto) 1.6, Sodium Level 138, Potassium Level 4.6, Chloride Level 102, Carbon Dioxide Level 29, Anion Gap 7, Blood Urea Nitrogen 42H, Creatinine 6.1H, Estimat Glomerular Filtration Rate 11.6, Glucose Level 102 , Calcium Level 9.0, Phosphorus Level 3.1, Magnesium Level 1.7L Height (Feet): 5 Height (Inches): 11.00 Weight (Pounds): 204 Objective GENERAL: Alert, awake, and oriented. LUNGS: Decreased breath sounds bilaterally. HEART: S1 and S2 regular. ABDOMEN: Soft, nontender. EXTREMITIES: No CCE NEURO: No changes. James Ramirez Jul 30, 2018 10:02
[2018-07-30 12:00] VITALS: BP 137/87
--- NOTE | 2018-07-30 13:40 | GI Progress Note ---
Assessment/Plan Problems: (1) Macrocytic anemia ICD Codes: D53.9 - Nutritional anemia, unspecified SNOMED: 03815132 (2) Iron deficiency ICD Codes: E61.1 - Iron deficiency SNOMED: 13817848 (3) Constipation ICD Codes: K59.00 - Constipation, unspecified SNOMED: 22226891 (4) Cocaine abuse ICD Codes: F14.10 - Cocaine abuse, uncomplicated SNOMED: 76166256 (5) Pancreatitis ICD Codes: K85.90 - Acute pancreatitis without necrosis or infection, unspecified SNOMED: 61482107 Status: stable Status Narrative Discussed with Dr. Shea. Assessment/Plan Pancreatitis now resolved Hepatitis panel negative history of hernia repair Stable H&H OB stool r/o GI bleed not collected monitor H&H, prn transfusions bowel regime ppi venofer renal diet fu labs outpatient GI procedures The patient was seen and examined at bedside and all new and available data was reviewed in the patients chart. I agree with the above findings, impression and plan. (Patient seen earlier today. Signature stamp does not reflect patient encounter time.). - Nikolas Shea MD Subjective Subjective had BM has complaint of lower abdominal pain, believes there is problem with his hernia mesh Objective Last 24 Hour Vital Signs Date Time Temp Pulse Resp B/P (MAP) Pulse Ox O2 Delivery O2 Flow Rate FiO2 07/30/18 12:39 Room Air 07/30/18 12:37 Room Air 07/30/18 12:00 97.8 85 19 137/87 (104) 98 07/30/18 09:00 Room Air 07/30/18 08:12 138/82 07/30/18 08:12 138/82 07/30/18 08:12 80 138/82 07/30/18 08:11 80 138/82 07/30/18 08:00 Nasal Cannula 2.0 28 07/30/18 08:00 96 Nasal Cannula 2.0 28 07/30/18 08:00 98.3 80 20 135/80 (98) 97 07/30/18 08:00 83 17 Nasal Cannula 2.0 28 07/30/18 05:54 80 20 97 Nasal Cannula 2.0 28 07/30/18 05:43 78 20 95 Nasal Cannula 2.0 28 07/30/18 04:15 98.0 81 19 138/82 (100) 96 07/29/18 23:37 98.1 83 19 123/70 (87) 94 07/29/18 20:59 92 141/87 07/29/18 20:18 Room Air 07/29/18 20:13 98.5 92 19 141/87 (105) 95 07/29/18 20:00 90 18 Nasal Cannula 2.0 28 07/29/18 20:00 95 Nasal Cannula 2.0 28 07/29/18 20:00 Nasal Cannula 2.0 28 07/29/18 17:15 129/92 07/29/18 16:00 96.8 80 20 129/92 (104) 95 Intake and Output 07/29/18 07/30/18 18:59 06:59 Intake Total 600 ml 500 ml Output Total 550 ml Balance 50 ml 500 ml Intake Oral 600 ml 500 ml Output Urine Total 550 ml Laboratory Tests Test 07/30/18 07:37 White Blood Count 6.5 K/UL (4.8-10.8) Red Blood Count 3.13 M/UL (4.70-6.10) L Hemoglobin 9.6 G/DL (14.2-18.0) L Hematocrit 31.4 % (42.0-52.0) L Mean Corpuscular Volume 100 FL (80-99) H Mean Corpuscular Hemoglobin 30.7 PG (27.0-31.0) Mean Corpuscular Hemoglobin Concent 30.6 G/DL (32.0-36.0) L Red Cell Distribution Width 14.8 % (11.6-14.8) Platelet Count 227 K/UL (150-450) Mean Platelet Volume 6.9 FL (6.5-10.1) Neutrophils (%) (Auto) 59.4 % (45.0-75.0) Lymphocytes (%) (Auto) 17.8 % (20.0-45.0) L Monocytes (%) (Auto) 15.3 % (1.0-10.0) H Eosinophils (%) (Auto) 5.9 % (0.0-3.0) H Basophils (%) (Auto) 1.6 % (0.0-2.0) Sodium Level 138 MMOL/L (136-145) Potassium Level 4.6 MMOL/L (3.5-5.1) Chloride Level 102 MMOL/L (98-107) Carbon Dioxide Level 29 MMOL/L (21-32) Anion Gap 7 mmol/L (5-15) Blood Urea Nitrogen 42 mg/dL (7-18) H Creatinine 6.1 MG/DL (0.55-1.30) H Estimat Glomerular Filtration Rate 11.6 mL/min (>60) Glucose Level 102 MG/DL (74-106) Calcium Level 9.0 MG/DL (8.5-10.1) Phosphorus Level 3.1 MG/DL (2.5-4.9) Magnesium Level 1.7 MG/DL (1.8-2.4) L Height (Feet): 5 Height (Inches): 11.00 Weight (Pounds): 204 General Appearance: WD/WN, no apparent distress, alert Cardiovascular: normal rate Respiratory/Chest: normal breath sounds, no respiratory distress Abdominal Exam: normal bowel sounds, non tender, soft Extremities: normal range of motion, non-tender Daja Murdock NP Jul 30, 2018 13:40
--- NOTE | 2018-07-30 13:52 | General Progress Note ---
Assessment/Plan Assessment/Plan # Anemia of chronic disease, multifactorial, grace on ckd --> Anemia w/u has been reviewed, no eric noted --> No evidence of hemolysis is noted, peripheral smear is wnl --> Hgb goal >7. Transfuse prn. --> continue on epo sq --> on iron # Congestive heart failure with acute decompensated heart failure. --> per cards management --> In tele unit --> on diuresis # Abnormal renal function, likely cardiorenal syndrome. --> Nephrology is following appreciate recs --> HD 07/30/18 --> BRIDGETT kidneys with minimal fullness, seen by renal, echogenicity is wnl # History of cocaine abuse with current positive tox screen. --> recommend cessation # Hypertension with hypertensive urgency. --> On Norvasc 5 mg bid, Hydralazine,Imdur and Clonidine patch as needed --> Avoid beta-blockers for active cocaine # Acute coronary syndrome/non-ST elevation myocardial infarction. --> per cards The date and time note entered does not reflect time and date patient was seen. GREATLY APPRECIATE CONSULTATION. Subjective Constitutional: Denies: no symptoms, chills, diaphoresis, fever, malaise, weakness, other HEENT: Denies: no symptoms, eye pain, blurred vision, tearing, double vision, ear pain, ear discharge, nose pain, nose congestion, throat pain, throat swelling, mouth pain, mouth swelling, other Cardiovascular: Denies: no symptoms, chest pain, edema, irregular heart rate, lightheadedness, palpitations, syncope, other Respiratory: Denies: no symptoms, cough, orthopnea, shortness of breath, SOB with excertion, SOB at rest, sputum, stridor, wheezing, other Gastrointestinal/Abdominal: Denies: no symptoms, abdomen distended, abdominal pain, black stools, tarry stools, blood in stool, constipated, diarrhea, difficulty swallowing, nausea, poor appetite, poor fluid intake, rectal bleeding , vomiting, other Neurologic/Psychiatric: Denies: no symptoms, anxiety, depressed, emotional problems, headache, numbness, paresthesia, pre-existing deficit, seizure, tingling, tremors, weakness, other Endocrine: Denies: no symptoms, excessive sweating, flushing, intolerance to cold, intolerance to heat, increased hunger, increased thirst, increased urine, unexplained weight gain, unexplained weight loss, other Allergies: Coded Allergies: No Known Allergies (Unverified , 07/08/18) Subjective 07/12: no events, cr trending, h/h stable, on epo 07/14: transfuse one unit 07/13, diruresed, refused mendez, seen by cards, bp better 07/15 : Pt is seen in the room, awake and alert, S/P blood transfusion, refusing HD 07/16 : Pt is awake and resting in bed. waiting on sister to make HD decision, no events 07/17 Pt is seen in the room,awake and alert, appears to be agreeable for placement of dialysis cath and dialysis . 07/18: Pt is seen in the room, No CP or SOB. Had HD today. 07/19: Pt is awake and resting in bed. Denies pain, SOB or fevers and chills. Has HD scheduled for 07/20/18, currently stable. 07/20: received hand held nebulizer, no other events, no f.c 07/21 : Pt seen by bedside, continues on breathing treatment, HD 07/22/18, no events 07/22: pending snf placement and outpatient hd 07/23: awake and resting in bed. no acute events, waiting placement and outpatient HD 07/24: no major events, waiting placement, seen by gi, recs reviewed, no complaints, on epo 07/25: CXR for patient c/o sob. O2 2L via NC administered. patient is A/A/Ox4. patient BLE edematous 07/26: Continues on oxygen of 3L/min via N/C. no acute respiratory distress is noted. Permacath to right chest for HD is intact 07/27: awake and comfortable, alert and oriented , next HD 07/28 07/28: Pt is seen by bedside, bipap is D/C, HD scheduled today, no events 07/29: Pt is awake and calm, Denies pain, SOB or fevers and chills, next HD 07/30. 07/30: hd pending, no major events, some sob Objective Last 24 Hour Vital Signs Date Time Temp Pulse Resp B/P (MAP) Pulse Ox O2 Delivery O2 Flow Rate FiO2 07/30/18 12:39 Room Air 07/30/18 12:37 Room Air 07/30/18 12:00 97.8 85 19 137/87 (104) 98 07/30/18 09:00 Room Air 07/30/18 08:12 138/82 07/30/18 08:12 138/82 07/30/18 08:12 80 138/82 07/30/18 08:11 80 138/82 07/30/18 08:00 Nasal Cannula 2.0 28 07/30/18 08:00 96 Nasal Cannula 2.0 28 07/30/18 08:00 98.3 80 20 135/80 (98) 97 07/30/18 08:00 83 17 Nasal Cannula 2.0 28 07/30/18 05:54 80 20 97 Nasal Cannula 2.0 28 07/30/18 05:43 78 20 95 Nasal Cannula 2.0 28 07/30/18 04:15 98.0 81 19 138/82 (100) 96 07/29/18 23:37 98.1 83 19 123/70 (87) 94 07/29/18 20:59 92 141/87 07/29/18 20:18 Room Air 07/29/18 20:13 98.5 92 19 141/87 (105) 95 07/29/18 20:00 90 18 Nasal Cannula 2.0 28 07/29/18 20:00 95 Nasal Cannula 2.0 28 07/29/18 20:00 Nasal Cannula 2.0 28 07/29/18 17:15 129/92 07/29/18 16:00 96.8 80 20 129/92 (104) 95 Intake and Output 07/29/18 07/30/18 18:59 06:59 Intake Total 600 ml 500 ml Output Total 550 ml Balance 50 ml 500 ml Intake Oral 600 ml 500 ml Output Urine Total 550 ml Laboratory Tests 07/30/18 07:37: White Blood Count 6.5, Red Blood Count 3.13L, Hemoglobin 9.6L, Hematocrit 31.4L , Mean Corpuscular Volume 100H, Mean Corpuscular Hemoglobin 30.7, Mean Corpuscular Hemoglobin Concent 30.6L, Red Cell Distribution Width 14.8, Platelet Count 227, Mean Platelet Volume 6.9, Neutrophils (%) (Auto) 59.4, Lymphocytes (%) (Auto) 17.8L, Monocytes (%) (Auto) 15.3H, Eosinophils (%) (Auto ) 5.9H, Basophils (%) (Auto) 1.6, Sodium Level 138, Potassium Level 4.6, Chloride Level 102, Carbon Dioxide Level 29, Anion Gap 7, Blood Urea Nitrogen 42H, Creatinine 6.1H, Estimat Glomerular Filtration Rate 11.6, Glucose Level 102 , Calcium Level 9.0, Phosphorus Level 3.1, Magnesium Level 1.7L Height (Feet): 5 Height (Inches): 11.00 Weight (Pounds): 204 Objective Physical Exam General Appearance: A+O x2 NAD HEENT: normocephalic, atraumatic Neck: non-tender, normal alignment Respiratory/Chest: chest wall non-tender, lungs clear Cardiovascular/Chest: normal peripheral pulses, normal rate Abdomen: normal bowel sounds, non tender Extremities: normal range of motion Shane Mary MD Jul 30, 2018 13:52
--- NOTE | 2018-07-30 14:48 | Pulmonology Progress Note ---
Assessment/Plan Problems: (1) Acute exacerbation of CHF (congestive heart failure) (2) Hypertensive cardiomegaly with heart failure (3) ACS (acute coronary syndrome) (4) Cocaine abuse (5) ARF (acute renal failure) (6) DDD (degenerative disc disease) (7) Epistaxis (8) Hypercapnic respiratory failure Assessment/Plan ASSESSMENT: The patient is a 58-year-old male with history of cocaine and tobacco abuse, congestive heart failure, and renal impairment, presenting with decompensated heart failure and abnormal renal function with marked uremia. He has previously been told he needs dialysis. He is now being admitted for acute coronary syndrome and likely need for dialysis. PROBLEM LIST: 1. Congestive heart failure with acute decompensated heart failure. 2. Abnormal renal function, likely cardiorenal syndrome now on HD 3. History of cocaine abuse with current positive tox screen. 4. Anemia/DARSHANA 5. Hypertension with hypertensive urgency. 6. Acute coronary syndrome/non-ST elevation myocardial infarction. 7. Acute on chronic LBP with radiculopathy ---> DDD/SS TREATMENT PLAN: -BiPAP 12/5 qHS and PRN - ENCOURAGE COMPLIANCE -Titrate FiO2 -PRN DUOnebs -HD per renal with UF as able -Control BP -F/U cards and renal recs -F/U heme recs -F/U GI recs ---> plan for outpatient EGD/colo -DVT Px: hep SQ -Pain control/supportive care - minimize narcotics/sedatives -F/U pain management recs -Appreciate psych eval, has capacity, F/U recs -SW assistance in placement Subjective Allergies: Coded Allergies: No Known Allergies (Unverified , 07/08/18) Subjective ROHINI AFVSS, stable O2 needs Feels the same, no sig SOB, no CP, no F/C Objective Last 24 Hour Vital Signs Date Time Temp Pulse Resp B/P (MAP) Pulse Ox O2 Delivery O2 Flow Rate FiO2 07/30/18 12:39 Room Air 07/30/18 12:37 Room Air 07/30/18 12:00 97.8 85 19 137/87 (104) 98 07/30/18 09:00 Room Air 07/30/18 08:12 138/82 07/30/18 08:12 138/82 07/30/18 08:12 80 138/82 07/30/18 08:11 80 138/82 07/30/18 08:00 Nasal Cannula 2.0 28 07/30/18 08:00 96 Nasal Cannula 2.0 28 07/30/18 08:00 98.3 80 20 135/80 (98) 97 07/30/18 08:00 83 17 Nasal Cannula 2.0 28 07/30/18 05:54 80 20 97 Nasal Cannula 2.0 28 07/30/18 05:43 78 20 95 Nasal Cannula 2.0 28 07/30/18 04:15 98.0 81 19 138/82 (100) 96 07/29/18 23:37 98.1 83 19 123/70 (87) 94 07/29/18 20:59 92 141/87 07/29/18 20:18 Room Air 07/29/18 20:13 98.5 92 19 141/87 (105) 95 07/29/18 20:00 90 18 Nasal Cannula 2.0 28 07/29/18 20:00 95 Nasal Cannula 2.0 28 07/29/18 20:00 Nasal Cannula 2.0 28 07/29/18 17:15 129/92 07/29/18 16:00 96.8 80 20 129/92 (104) 95 Intake and Output 07/29/18 07/30/18 19:00 07:00 Intake Total 600 ml 500 ml Output Total 550 ml Balance 50 ml 500 ml Intake Oral 600 ml 500 ml Output Urine Total 550 ml General Appearance: WD/WN, no acute distress HEENT: normocephalic, atraumatic, anicteric, mucous membranes moist Respiratory/Chest: chest wall non-tender, lungs clear, normal breath sounds, no respiratory distress, no accessory muscle use Cardiovascular: normal peripheral pulses, normal rate, regular rhythm Abdomen: normal bowel sounds, soft, non tender, no organomegaly, non distended , no mass Extremities: no cyanosis, no clubbing, no edema Laboratory Tests 07/30/18 07:37: White Blood Count 6.5, Red Blood Count 3.13L, Hemoglobin 9.6L, Hematocrit 31.4L , Mean Corpuscular Volume 100H, Mean Corpuscular Hemoglobin 30.7, Mean Corpuscular Hemoglobin Concent 30.6L, Red Cell Distribution Width 14.8, Platelet Count 227, Mean Platelet Volume 6.9, Neutrophils (%) (Auto) 59.4, Lymphocytes (%) (Auto) 17.8L, Monocytes (%) (Auto) 15.3H, Eosinophils (%) (Auto ) 5.9H, Basophils (%) (Auto) 1.6, Sodium Level 138, Potassium Level 4.6, Chloride Level 102, Carbon Dioxide Level 29, Anion Gap 7, Blood Urea Nitrogen 42H, Creatinine 6.1H, Estimat Glomerular Filtration Rate 11.6, Glucose Level 102 , Calcium Level 9.0, Phosphorus Level 3.1, Magnesium Level 1.7L Current Medications Medications (Trade) Dose Ordered Sig/Harish Route PRN Reason Start Time Stop Time Status Last Admin Dose Admin Acetaminophen (Tylenol) 650 mg Q4H PRN ORAL Mild Pain/Temp > 100.5 07/26/18 22:00 08/25/18 21:59 07/27/18 02:11 Acetaminophen/ Hydrocodone Bitart ([place] 10/325) 1 tab Q4H PRN ORAL SEVERE Pain 07/27/18 17:51 08/03/18 17:50 07/28/18 22:57 Albuterol/ Ipratropium (Albuterol/ Ipratropium) 3 ml Q4H PRN HHN Shortness of Breath 07/26/18 22:00 07/31/18 21:59 07/30/18 05:53 Aspirin (ASA) 81 mg DAILY ORAL 07/27/18 09:00 08/08/18 08:59 07/29/18 09:04 Chlorhexidine Gluconate (Laurel-Hex 2%) 1 applic DAILY@2000 TOPIC 07/27/18 20:00 08/25/18 19:59 07/29/18 20:59 Clonidine HCl (Catapres Tab) 0.1 mg Q4H PRN ORAL bp over 165 syst 07/26/18 22:00 08/25/18 21:59 Dextrose (Dextrose 50%) 25 ml Q30M PRN IV Hypoglycemia 07/26/18 22:00 08/07/18 16:29 Dextrose (Dextrose 50%) 50 ml Q30M PRN IV Hypoglycemia 07/26/18 22:00 08/07/18 16:29 Diltiazem HCl (Cardizem CD) 240 mg DAILY ORAL 07/27/18 09:00 08/25/18 08:59 07/30/18 08:12 Diphenhydramine HCl (Benadryl) 25 mg Q6H PRN ORAL Itching/Pruritis 07/26/18 22:30 08/07/18 16:29 07/30/18 00:38 Docusate Sodium (Colace) 100 mg THREE TIMES A DAY ORAL 07/27/18 09:00 08/20/18 17:59 07/30/18 08:12 Epoetin Juan Pablo (Procrit (for ESRD on dialysis)) 8,000 units FRI-FRI-FRI SUBQ 07/29/18 21:00 08/28/18 20:59 07/29/18 21:00 Gabapentin (Neurontin) 300 mg THREE TIMES A DAY ORAL 07/27/18 09:00 08/17/18 17:59 07/30/18 08:11 Heparin Sodium (Porcine) (Heparin 5000 units/ml) 5,000 units EVERY 12 HOURS SUBQ 07/27/18 09:00 08/14/18 21:59 07/30/18 08:18 Isosorbide Mononitrate (Imdur) 60 mg DAILY ORAL 07/27/18 09:00 08/11/18 08:59 07/30/18 08:12 Lisinopril (Prinivil) 20 mg BID ORAL 07/27/18 09:00 08/19/18 08:59 07/30/18 08:12 Methocarbamol (Robaxin) 500 mg Q8H PRN ORAL muscle spasm 07/29/18 09:15 08/28/18 09:14 Metoprolol Tartrate (Lopressor) 100 mg Q12HR ORAL 07/27/18 09:00 08/22/18 20:59 07/30/18 08:11 Pantoprazole (Protonix) 40 mg DAILY ORAL 07/27/18 09:00 08/10/18 21:59 07/30/18 08:12 Polyethylene Glycol (Miralax) 17 gm BEDTIME ORAL 07/27/18 21:00 08/20/18 20:59 07/29/18 21:01 Sevelamer Carbonate (Renvela) 800 mg THREE TIMES A DAY ORAL 07/27/18 09:00 08/08/18 17:59 07/30/18 08:11 Tamsulosin HCl (Flomax) 0.4 mg QHS ORAL 07/27/18 21:00 08/09/18 12:52 07/29/18 20:59 Edgard Webb MD Jul 30, 2018 14:48
--- NOTE | 2018-07-30 15:19 | Nephrology Progress Note ---
Assessment/Plan Problem List: (1) Renal failure (ARF), acute on chronic (2) Cocaine abuse (3) Acute exacerbation of CHF (congestive heart failure) (4) Hypertensive cardiomegaly with heart failure (5) Volume overload Assessment Acute on Chronic renal failure Anemia Elevated troponin Hypertensive renal and heart disease Cocaine abuse Cardiomyopathy Plan next HD 07/30 readjust bp meds Dc planning increase Neurontin transfuse one unit 07/[address] Moura 2D Echo 55% ej fx BRIDGETT kidneys * Mild fullness of the bilateral renal collecting systems without radiographically appreciable stone and observed bilateral ureteral jets. Findings may be related to mild bladder distention. Consider repeat exam after bladder decompression. monitor renal parameters Avoid nephrotoxics renal diet flomax Subjective ROS Limited/Unobtainable: No Objective Objective Last 24 Hour Vital Signs Date Time Temp Pulse Resp B/P (MAP) Pulse Ox O2 Delivery O2 Flow Rate FiO2 07/30/18 12:39 Room Air 07/30/18 12:37 Room Air 07/30/18 12:00 97.8 85 19 137/87 (104) 98 07/30/18 09:00 Room Air 07/30/18 08:12 138/82 07/30/18 08:12 138/82 07/30/18 08:12 80 138/82 07/30/18 08:11 80 138/82 07/30/18 08:00 Nasal Cannula 2.0 28 07/30/18 08:00 96 Nasal Cannula 2.0 28 07/30/18 08:00 98.3 80 20 135/80 (98) 97 07/30/18 08:00 83 17 Nasal Cannula 2.0 28 07/30/18 05:54 80 20 97 Nasal Cannula 2.0 28 07/30/18 05:43 78 20 95 Nasal Cannula 2.0 28 07/30/18 04:15 98.0 81 19 138/82 (100) 96 07/29/18 23:37 98.1 83 19 123/70 (87) 94 07/29/18 20:59 92 141/87 07/29/18 20:18 Room Air 07/29/18 20:13 98.5 92 19 141/87 (105) 95 07/29/18 20:00 90 18 Nasal Cannula 2.0 28 07/29/18 20:00 95 Nasal Cannula 2.0 28 07/29/18 20:00 Nasal Cannula 2.0 28 07/29/18 17:15 129/92 07/29/18 16:00 96.8 80 20 129/92 (104) 95 Intake and Output 07/29/18 07/30/18 19:00 07:00 Intake Total 600 ml 500 ml Output Total 550 ml Balance 50 ml 500 ml Intake Oral 600 ml 500 ml Output Urine Total 550 ml Laboratory Tests 07/30/18 07:37: White Blood Count 6.5, Red Blood Count 3.13L, Hemoglobin 9.6L, Hematocrit 31.4L , Mean Corpuscular Volume 100H, Mean Corpuscular Hemoglobin 30.7, Mean Corpuscular Hemoglobin Concent 30.6L, Red Cell Distribution Width 14.8, Platelet Count 227, Mean Platelet Volume 6.9, Neutrophils (%) (Auto) 59.4, Lymphocytes (%) (Auto) 17.8L, Monocytes (%) (Auto) 15.3H, Eosinophils (%) (Auto ) 5.9H, Basophils (%) (Auto) 1.6, Sodium Level 138, Potassium Level 4.6, Chloride Level 102, Carbon Dioxide Level 29, Anion Gap 7, Blood Urea Nitrogen 42H, Creatinine 6.1H, Estimat Glomerular Filtration Rate 11.6, Glucose Level 102 , Calcium Level 9.0, Phosphorus Level 3.1, Magnesium Level 1.7L Height (Feet): 5 Height (Inches): 11.00 Weight (Pounds): 204 General Appearance: no apparent distress Cardiovascular: regular rhythm Respiratory/Chest: decreased breath sounds Abdomen: soft Objective no change Richar Cm MD Jul 30, 2018 15:19
[2018-07-30] MEDS: HYDROcodone/Acetamin 10/325 tab ORAL PRN ×2 (15:28→21:36)
[2018-07-30 16:00] VITALS: BP 133/82
--- NOTE | 2018-07-30 17:01 | Cardiac Electrophysiology PN ---
Assessment/Plan Assessment/Plan 1. Troponin leak in the setting of cocaine use and renal failure. Levels are flat Avoid beta-pablo in view of active cocaine use. On aspirin and Lipitor. EF 45%. No CP 2. Hypertension. On Cardizem 240 daily, Metoprolol 100 bid, Imdur 60, Lisinopril 20 bid and HD 3. End-stage renal disease, on HD by Dr. Cm 4. Substance use with cocaine. Avoid retirement beta-blockers. 5. Recent pneumonia. 6. Congestive heart failure. EF 45% 7. Severe anemia s/p PRBCs . JEANA RN Subjective Subjective .No CP or SOB. Has back pain Objective Last 24 Hour Vital Signs Date Time Temp Pulse Resp B/P (MAP) Pulse Ox O2 Delivery O2 Flow Rate FiO2 07/30/18 12:39 Room Air 07/30/18 12:37 Room Air 07/30/18 12:00 97.8 85 19 137/87 (104) 98 07/30/18 09:00 Room Air 07/30/18 08:12 138/82 07/30/18 08:12 138/82 07/30/18 08:12 80 138/82 07/30/18 08:11 80 138/82 07/30/18 08:00 Nasal Cannula 2.0 28 07/30/18 08:00 96 Nasal Cannula 2.0 28 07/30/18 08:00 98.3 80 20 135/80 (98) 97 07/30/18 08:00 83 17 Nasal Cannula 2.0 28 07/30/18 05:54 80 20 97 Nasal Cannula 2.0 28 07/30/18 05:43 78 20 95 Nasal Cannula 2.0 28 07/30/18 04:15 98.0 81 19 138/82 (100) 96 07/29/18 23:37 98.1 83 19 123/70 (87) 94 07/29/18 20:59 92 141/87 07/29/18 20:18 Room Air 07/29/18 20:13 98.5 92 19 141/87 (105) 95 07/29/18 20:00 90 18 Nasal Cannula 2.0 28 07/29/18 20:00 95 Nasal Cannula 2.0 28 07/29/18 20:00 Nasal Cannula 2.0 28 07/29/18 17:15 129/92 Intake and Output 07/29/18 07/30/18 19:00 07:00 Intake Total 600 ml 500 ml Output Total 550 ml Balance 50 ml 500 ml Intake Oral 600 ml 500 ml Output Urine Total 550 ml Laboratory Tests Test 07/30/18 07:37 White Blood Count 6.5 K/UL (4.8-10.8) Red Blood Count 3.13 M/UL (4.70-6.10) L Hemoglobin 9.6 G/DL (14.2-18.0) L Hematocrit 31.4 % (42.0-52.0) L Mean Corpuscular Volume 100 FL (80-99) H Mean Corpuscular Hemoglobin 30.7 PG (27.0-31.0) Mean Corpuscular Hemoglobin Concent 30.6 G/DL (32.0-36.0) L Red Cell Distribution Width 14.8 % (11.6-14.8) Platelet Count 227 K/UL (150-450) Mean Platelet Volume 6.9 FL (6.5-10.1) Neutrophils (%) (Auto) 59.4 % (45.0-75.0) Lymphocytes (%) (Auto) 17.8 % (20.0-45.0) L Monocytes (%) (Auto) 15.3 % (1.0-10.0) H Eosinophils (%) (Auto) 5.9 % (0.0-3.0) H Basophils (%) (Auto) 1.6 % (0.0-2.0) Sodium Level 138 MMOL/L (136-145) Potassium Level 4.6 MMOL/L (3.5-5.1) Chloride Level 102 MMOL/L (98-107) Carbon Dioxide Level 29 MMOL/L (21-32) Anion Gap 7 mmol/L (5-15) Blood Urea Nitrogen 42 mg/dL (7-18) H Creatinine 6.1 MG/DL (0.55-1.30) H Estimat Glomerular Filtration Rate 11.6 mL/min (>60) Glucose Level 102 MG/DL (74-106) Calcium Level 9.0 MG/DL (8.5-10.1) Phosphorus Level 3.1 MG/DL (2.5-4.9) Magnesium Level 1.7 MG/DL (1.8-2.4) L Objective HEAD AND NECK: No JVD. LUNGS: Decreased breath sounds. Right IJ PermCath CARDIOVASCULAR: Regular S1 and S2 with no gallop or murmur. ABDOMEN: Soft. EXTREMITIES: 1 plus pitting edema. German Gray MD Jul 30, 2018 17:01
[2018-07-30] MEDS: Methocarbamol 500mg tab ORAL PRN (17:13)
[2018-07-30 20:00] VITALS: BP 144/105
[2018-07-30] MEDS: Miralax 17gm pkt ORAL SCH (21:00)
[2018-07-30] MEDS: Dyna-Hex 2% Top Sol 2oz TOPIC SCH (21:36)
[2018-07-30] MEDS: Tamsulosin 0.4mg cap ORAL SCH (21:36)
[2018-07-31 01:00] VITALS: BP 143/98
[2018-07-31 04:00] VITALS: BP 142/95
[2018-07-31] MEDS: HYDROcodone/Acetamin 10/325 tab ORAL PRN (04:11)
[2018-07-31 07:42] LABS: BASOPHILS % (AUTO) 1.2 % (0.0-2.0); EOSINOPHILS % (AUTO) 5.8 % (0.0-3.0); HEMATOCRIT 31.4 % (42.0-52.0); HEMOGLOBIN 9.7 G/DL (14.2-18.0); LYMPHOCYTES % (AUTO) 18.1 % (20.0-45.0); MEAN CORPUSCULAR VOLUME 100 FL (80-99); MONOCYTES % (AUTO) 11.2 % (1.0-10.0); NEUTROPHILS % (AUTO) 63.8 % (45.0-75.0); PLATELET COUNT 213 K/UL (150-450); RED BLOOD COUNT 3.13 M/UL (4.70-6.10); RED CELL DISTRIBUTION WIDTH 14.6 % (11.6-14.8); WHITE BLOOD COUNT 8.1 K/UL (4.8-10.8)
[2018-07-31 07:57] LABS: ANION GAP 8 mmol/L (5-15); BLOOD UREA NITROGEN 33 mg/dL (7-18); CARBON DIOXIDE 30 MMOL/L (21-32); CHLORIDE 101 MMOL/L (98-107); CREATININE 5.2 MG/DL (0.55-1.30); POTASSIUM 4.5 MMOL/L (3.5-5.1); SODIUM 138 MMOL/L (136-145)
[2018-07-31 08:00] VITALS: BP 158/100
[2018-07-31] MEDS: Docusate 100mg cap ORAL SCH ×3 (08:35→17:12)
[2018-07-31] MEDS: dilTIAZem HCl CD 240mg cap ORAL SCH (08:35)
[2018-07-31] MEDS: Aspirin Baby 81mg ORAL SCH (08:36)
[2018-07-31] MEDS: Lisinopril 20mg tab ORAL SCH ×2 (08:36→17:12)
[2018-07-31] MEDS: Imdur 30mg tab ORAL SCH (08:36)
[2018-07-31] MEDS: Heparin 5000 units/ml inj SUBQ SCH ×2 (08:37→20:46)
--- NOTE | 2018-07-31 09:05 | Pulmonology Progress Note ---
Assessment/Plan Problems: (1) Acute exacerbation of CHF (congestive heart failure) (2) Hypertensive cardiomegaly with heart failure (3) ACS (acute coronary syndrome) (4) Cocaine abuse (5) ARF (acute renal failure) (6) DDD (degenerative disc disease) (7) Epistaxis (8) Hypercapnic respiratory failure Assessment/Plan ASSESSMENT: The patient is a 58-year-old male with history of cocaine and tobacco abuse, congestive heart failure, and renal impairment, presenting with decompensated heart failure and abnormal renal function with marked uremia. He has previously been told he needs dialysis. He is now being admitted for acute coronary syndrome and likely need for dialysis. PROBLEM LIST: 1. Congestive heart failure with acute decompensated heart failure. 2. Abnormal renal function, likely cardiorenal syndrome now on HD 3. History of cocaine abuse with current positive tox screen. 4. Anemia/DARSHANA 5. Hypertension with hypertensive urgency. 6. Acute coronary syndrome/non-ST elevation myocardial infarction. 7. Acute on chronic LBP with radiculopathy ---> DDD/SS TREATMENT PLAN: -BiPAP 12/5 qHS and PRN - DECLINES -Titrate FiO2 -PRN DUOnebs -HD per renal with UF as able -Control BP -F/U cards and renal recs -F/U heme recs -F/U GI recs ---> plan for outpatient EGD/colo -DVT Px: hep SQ -Pain control/supportive care - minimize narcotics/sedatives -F/U pain management recs -Appreciate psych eval, has capacity, F/U recs -SW assistance in placement Subjective Allergies: Coded Allergies: No Known Allergies (Unverified , 07/08/18) Subjective ROHINI AFVSS, stable O2 needs Feels the same, no sig SOB, no CP, no F/C Objective Last 24 Hour Vital Signs Date Time Temp Pulse Resp B/P (MAP) Pulse Ox O2 Delivery O2 Flow Rate FiO2 07/31/18 08:36 158/100 07/31/18 08:36 158/100 07/31/18 08:35 92 158/100 07/31/18 08:35 92 158/100 07/31/18 08:00 98.8 92 19 158/100 (119) 97 07/31/18 04:00 97.3 90 19 142/95 (111) 97 07/31/18 01:00 97.3 88 19 143/98 (113) 95 07/30/18 21:36 89 144/105 07/30/18 21:05 Nasal Cannula 2.0 28 07/30/18 21:05 92 18 Nasal Cannula 2.0 28 07/30/18 21:05 94 Nasal Cannula 2.0 28 07/30/18 21:00 Room Air 07/30/18 20:00 97.0 89 19 144/105 (118) 94 07/30/18 17:02 137/87 07/30/18 16:00 97.2 87 20 133/82 (99) 98 07/30/18 12:39 Room Air 07/30/18 12:37 Room Air 07/30/18 12:00 97.8 85 19 137/87 (104) 98 Intake and Output 07/30/18 07/31/18 19:00 07:00 Intake Total 1200 ml 600 ml Output Total 3000 ml 1450 ml Balance -1800 ml -850 ml Intake Oral 1200 ml 600 ml Output Urine Total 1450 ml Hemodialysis UF 3000 ml # Voids 5 General Appearance: WD/WN, no acute distress HEENT: normocephalic, atraumatic, anicteric, mucous membranes moist Respiratory/Chest: chest wall non-tender, lungs clear, normal breath sounds, no respiratory distress Cardiovascular: normal peripheral pulses, normal rate, regular rhythm Abdomen: normal bowel sounds, soft, non tender, no organomegaly, non distended , no mass Extremities: no cyanosis, no clubbing, no edema Laboratory Tests 07/31/18 06:24: White Blood Count 8.1, Red Blood Count 3.13L, Hemoglobin 9.7L, Hematocrit 31.4L , Mean Corpuscular Volume 100H, Mean Corpuscular Hemoglobin 30.9, Mean Corpuscular Hemoglobin Concent 30.8L, Red Cell Distribution Width 14.6, Platelet Count 213, Mean Platelet Volume 6.5, Neutrophils (%) (Auto) 63.8, Lymphocytes (%) (Auto) 18.1L, Monocytes (%) (Auto) 11.2H, Eosinophils (%) (Auto ) 5.8H, Basophils (%) (Auto) 1.2, Sodium Level 138, Potassium Level 4.5, Chloride Level 101, Carbon Dioxide Level 30, Anion Gap 8, Blood Urea Nitrogen 33H, Creatinine 5.2H, Estimat Glomerular Filtration Rate 13.9, Glucose Level 90 , Calcium Level 9.0, Phosphorus Level 3.0, Magnesium Level 1.6L Current Medications Medications (Trade) Dose Ordered Sig/Harish Route PRN Reason Start Time Stop Time Status Last Admin Dose Admin Acetaminophen (Tylenol) 650 mg Q4H PRN ORAL Mild Pain/Temp > 100.5 07/26/18 22:00 08/25/18 21:59 07/27/18 02:11 Acetaminophen/ Hydrocodone Bitart ([place] 10/325) 1 tab Q4H PRN ORAL SEVERE Pain 07/27/18 17:51 08/03/18 17:50 07/31/18 04:11 Albuterol/ Ipratropium (Albuterol/ Ipratropium) 3 ml Q4H PRN HHN Shortness of Breath 07/26/18 22:00 07/31/18 21:59 07/30/18 05:53 Aspirin (ASA) 81 mg DAILY ORAL 07/27/18 09:00 08/08/18 08:59 07/31/18 08:36 Chlorhexidine Gluconate (Laurel-Hex 2%) 1 applic DAILY@2000 TOPIC 07/27/18 20:00 08/25/18 19:59 07/30/18 21:36 Clonidine HCl (Catapres Tab) 0.1 mg Q4H PRN ORAL bp over 165 syst 07/26/18 22:00 08/25/18 21:59 Dextrose (Dextrose 50%) 25 ml Q30M PRN IV Hypoglycemia 07/26/18 22:00 08/07/18 16:29 Dextrose (Dextrose 50%) 50 ml Q30M PRN IV Hypoglycemia 07/26/18 22:00 08/07/18 16:29 Diltiazem HCl (Cardizem CD) 240 mg DAILY ORAL 07/27/18 09:00 08/25/18 08:59 07/31/18 08:35 Diphenhydramine HCl (Benadryl) 25 mg Q6H PRN ORAL Itching/Pruritis 07/26/18 22:30 08/07/18 16:29 07/30/18 21:44 Docusate Sodium (Colace) 100 mg THREE TIMES A DAY ORAL 07/27/18 09:00 08/20/18 17:59 07/31/18 08:35 Epoetin Juan Pablo (Procrit (for ESRD on dialysis)) 8,000 units FRI-FRI-FRI SUBQ 07/29/18 21:00 08/28/18 20:59 07/29/18 21:00 Gabapentin (Neurontin) 300 mg THREE TIMES A DAY ORAL 07/27/18 09:00 08/17/18 17:59 07/31/18 08:35 Heparin Sodium (Porcine) (Heparin 5000 units/ml) 5,000 units EVERY 12 HOURS SUBQ 07/27/18 09:00 08/14/18 21:59 07/31/18 08:37 Isosorbide Mononitrate (Imdur) 60 mg DAILY ORAL 07/27/18 09:00 08/11/18 08:59 07/31/18 08:36 Lisinopril (Prinivil) 20 mg BID ORAL 07/27/18 09:00 08/19/18 08:59 07/31/18 08:36 Methocarbamol (Robaxin) 500 mg Q8H PRN ORAL muscle spasm 07/29/18 09:15 08/28/18 09:14 07/30/18 17:13 Metoprolol Tartrate (Lopressor) 100 mg Q12HR ORAL 07/27/18 09:00 08/22/18 20:59 07/31/18 08:35 Pantoprazole (Protonix) 40 mg DAILY ORAL 07/27/18 09:00 08/10/18 21:59 07/31/18 08:35 Polyethylene Glycol (Miralax) 17 gm BEDTIME ORAL 07/27/18 21:00 08/20/18 20:59 07/29/18 21:01 Sevelamer Carbonate (Renvela) 800 mg THREE TIMES A DAY ORAL 07/27/18 09:00 08/08/18 17:59 07/31/18 08:36 Tamsulosin HCl (Flomax) 0.4 mg QHS ORAL 07/27/18 21:00 08/09/18 12:52 07/30/18 21:36 Edgard Webb MD Jul 31, 2018 09:05
--- NOTE | 2018-07-31 10:14 | General Progress Note ---
Assessment/Plan Problem List: (1) Lumbar spondylosis ICD Codes: M47.816 - Spondylosis without myelopathy or radiculopathy, lumbar region SNOMED: 747150244 (2) Cocaine abuse ICD Codes: F14.10 - Cocaine abuse, uncomplicated SNOMED: 38078710 (3) DDD (degenerative disc disease) SNOMED: 66297225 Status: doing well, stable Assessment/Plan we will continue [place]. Subjective Constitutional: Denies: no symptoms, chills, diaphoresis, fever, malaise, weakness, other HEENT: Denies: no symptoms, eye pain, blurred vision, tearing, double vision, ear pain, ear discharge, nose pain, nose congestion, throat pain, throat swelling, mouth pain, mouth swelling, other Cardiovascular: Reports: chest pain Respiratory: Denies: no symptoms, cough, orthopnea, shortness of breath, SOB with excertion, SOB at rest, sputum, stridor, wheezing, other Gastrointestinal/Abdominal: Denies: no symptoms, abdomen distended, abdominal pain, black stools, tarry stools, blood in stool, constipated, diarrhea, difficulty swallowing, nausea, poor appetite, poor fluid intake, rectal bleeding , vomiting, other Genitourinary: Denies: no symptoms, burning, discharge, frequency, flank pain, hematuria, incontinence, pain, urgency, other Neurologic/Psychiatric: Denies: no symptoms, anxiety, depressed, emotional problems, headache, numbness, paresthesia, pre-existing deficit, seizure, tingling, tremors, weakness, other Allergies: Coded Allergies: No Known Allergies (Unverified , 07/08/18) Subjective Pt has back pain and chest pain but is stable. No complains. Objective Last 24 Hour Vital Signs Date Time Temp Pulse Resp B/P (MAP) Pulse Ox O2 Delivery O2 Flow Rate FiO2 07/31/18 09:00 Room Air 07/31/18 08:36 158/100 07/31/18 08:36 158/100 07/31/18 08:35 92 158/100 07/31/18 08:35 92 158/100 07/31/18 08:00 98.8 92 19 158/100 (119) 97 07/31/18 04:00 97.3 90 19 142/95 (111) 97 07/31/18 01:00 97.3 88 19 143/98 (113) 95 07/30/18 21:36 89 144/105 07/30/18 21:05 Nasal Cannula 2.0 28 07/30/18 21:05 92 18 Nasal Cannula 2.0 28 07/30/18 21:05 94 Nasal Cannula 2.0 28 07/30/18 21:00 Room Air 07/30/18 20:00 97.0 89 19 144/105 (118) 94 07/30/18 17:02 137/87 07/30/18 16:00 97.2 87 20 133/82 (99) 98 07/30/18 12:39 Room Air 07/30/18 12:37 Room Air 07/30/18 12:00 97.8 85 19 137/87 (104) 98 Intake and Output 07/30/18 07/31/18 19:00 07:00 Intake Total 1200 ml 600 ml Output Total 3000 ml 1450 ml Balance -1800 ml -850 ml Intake Oral 1200 ml 600 ml Output Urine Total 1450 ml Hemodialysis UF 3000 ml # Voids 5 Laboratory Tests 07/31/18 06:24: White Blood Count 8.1, Red Blood Count 3.13L, Hemoglobin 9.7L, Hematocrit 31.4L , Mean Corpuscular Volume 100H, Mean Corpuscular Hemoglobin 30.9, Mean Corpuscular Hemoglobin Concent 30.8L, Red Cell Distribution Width 14.6, Platelet Count 213, Mean Platelet Volume 6.5, Neutrophils (%) (Auto) 63.8, Lymphocytes (%) (Auto) 18.1L, Monocytes (%) (Auto) 11.2H, Eosinophils (%) (Auto ) 5.8H, Basophils (%) (Auto) 1.2, Sodium Level 138, Potassium Level 4.5, Chloride Level 101, Carbon Dioxide Level 30, Anion Gap 8, Blood Urea Nitrogen 33H, Creatinine 5.2H, Estimat Glomerular Filtration Rate 13.9, Glucose Level 90 , Calcium Level 9.0, Phosphorus Level 3.0, Magnesium Level 1.6L Height (Feet): 5 Height (Inches): 11.00 Weight (Pounds): 195 General Appearance: WD/WN EENT: other - Right eye blind Neck: non-tender, supple Cardiovascular: normal rate Respiratory/Chest: lungs clear Abdomen: non tender, soft Edema: no edema noted Arm (L), no edema noted Arm (R); 2+ Leg (L), 2+ Leg (R), 2+ Pedal (L), 2+ Pedal (R) Neurologic: alert, oriented x 3 Jazzy Rosado MD Jul 31, 2018 10:14
--- NOTE | 2018-07-31 11:21 | GI Progress Note ---
Assessment/Plan Problems: (1) Macrocytic anemia ICD Codes: D53.9 - Nutritional anemia, unspecified SNOMED: 96644731 (2) Iron deficiency ICD Codes: E61.1 - Iron deficiency SNOMED: 64652047 (3) Constipation ICD Codes: K59.00 - Constipation, unspecified SNOMED: 57962478 (4) Cocaine abuse ICD Codes: F14.10 - Cocaine abuse, uncomplicated SNOMED: 44566047 (5) Pancreatitis ICD Codes: K85.90 - Acute pancreatitis without necrosis or infection, unspecified SNOMED: 88059123 Status: stable Status Narrative Discussed with Dr. Shea Assessment/Plan Pancreatitis now resolved Hepatitis panel negative history of hernia repair Stable H&H OB stool r/o GI bleed not collected monitor H&H, prn transfusions bowel regime ppi venofer renal diet fu labs outpatient GI procedures The patient was seen and examined at bedside and all new and available data was reviewed in the patients chart. I agree with the above findings, impression and plan. (Patient seen earlier today. Signature stamp does not reflect patient encounter time.). - Nikolas Shea MD Subjective Subjective had BM had complaint of lower abdominal pain, believes there is problem with his hernia mesh Denies any pain at this time Objective Last 24 Hour Vital Signs Date Time Temp Pulse Resp B/P (MAP) Pulse Ox O2 Delivery O2 Flow Rate FiO2 07/31/18 09:00 Room Air 07/31/18 08:36 158/100 07/31/18 08:36 158/100 07/31/18 08:35 92 158/100 07/31/18 08:35 92 158/100 07/31/18 08:00 98.8 92 19 158/100 (119) 97 07/31/18 04:00 97.3 90 19 142/95 (111) 97 07/31/18 01:00 97.3 88 19 143/98 (113) 95 07/30/18 21:36 89 144/105 07/30/18 21:05 Nasal Cannula 2.0 28 07/30/18 21:05 92 18 Nasal Cannula 2.0 28 07/30/18 21:05 94 Nasal Cannula 2.0 28 07/30/18 21:00 Room Air 07/30/18 20:00 97.0 89 19 144/105 (118) 94 07/30/18 17:02 137/87 07/30/18 16:00 97.2 87 20 133/82 (99) 98 07/30/18 12:39 Room Air 07/30/18 12:37 Room Air 07/30/18 12:00 97.8 85 19 137/87 (104) 98 Intake and Output 07/30/18 07/31/18 18:59 06:59 Intake Total 1200 ml 600 ml Output Total 3000 ml 1450 ml Balance -1800 ml -850 ml Intake Oral 1200 ml 600 ml Output Urine Total 1450 ml Hemodialysis UF 3000 ml # Voids 5 Laboratory Tests Test 07/31/18 06:24 White Blood Count 8.1 K/UL (4.8-10.8) Red Blood Count 3.13 M/UL (4.70-6.10) L Hemoglobin 9.7 G/DL (14.2-18.0) L Hematocrit 31.4 % (42.0-52.0) L Mean Corpuscular Volume 100 FL (80-99) H Mean Corpuscular Hemoglobin 30.9 PG (27.0-31.0) Mean Corpuscular Hemoglobin Concent 30.8 G/DL (32.0-36.0) L Red Cell Distribution Width 14.6 % (11.6-14.8) Platelet Count 213 K/UL (150-450) Mean Platelet Volume 6.5 FL (6.5-10.1) Neutrophils (%) (Auto) 63.8 % (45.0-75.0) Lymphocytes (%) (Auto) 18.1 % (20.0-45.0) L Monocytes (%) (Auto) 11.2 % (1.0-10.0) H Eosinophils (%) (Auto) 5.8 % (0.0-3.0) H Basophils (%) (Auto) 1.2 % (0.0-2.0) Sodium Level 138 MMOL/L (136-145) Potassium Level 4.5 MMOL/L (3.5-5.1) Chloride Level 101 MMOL/L (98-107) Carbon Dioxide Level 30 MMOL/L (21-32) Anion Gap 8 mmol/L (5-15) Blood Urea Nitrogen 33 mg/dL (7-18) H Creatinine 5.2 MG/DL (0.55-1.30) H Estimat Glomerular Filtration Rate 13.9 mL/min (>60) Glucose Level 90 MG/DL (74-106) Calcium Level 9.0 MG/DL (8.5-10.1) Phosphorus Level 3.0 MG/DL (2.5-4.9) Magnesium Level 1.6 MG/DL (1.8-2.4) L Height (Feet): 5 Height (Inches): 11.00 Weight (Pounds): 195 General Appearance: WD/WN, no apparent distress, alert Cardiovascular: normal rate Respiratory/Chest: normal breath sounds, no respiratory distress Abdominal Exam: normal bowel sounds, non tender, soft Extremities: normal range of motion, non-tender Daja Murdock NP Jul 31, 2018 11:21
[2018-07-31 12:00] VITALS: BP 167/99
--- NOTE | 2018-07-31 13:10 | Nephrology Progress Note ---
Assessment/Plan Problem List: (1) Renal failure (ARF), acute on chronic (2) Cocaine abuse (3) Acute exacerbation of CHF (congestive heart failure) (4) Hypertensive cardiomegaly with heart failure (5) Volume overload Assessment Acute on Chronic renal failure Anemia Elevated troponin Hypertensive renal and heart disease Cocaine abuse Cardiomyopathy Plan next HD 08/01 readjust bp meds Dc planning increase Neurontin transfuse one unit 07/[address] Moura 2D Echo 55% ej fx BRIDGETT kidneys * Mild fullness of the bilateral renal collecting systems without radiographically appreciable stone and observed bilateral ureteral jets. Findings may be related to mild bladder distention. Consider repeat exam after bladder decompression. monitor renal parameters Avoid nephrotoxics renal diet flomax Subjective ROS Limited/Unobtainable: No Objective Objective Last 24 Hour Vital Signs Date Time Temp Pulse Resp B/P (MAP) Pulse Ox O2 Delivery O2 Flow Rate FiO2 07/31/18 12:59 167/99 07/31/18 12:00 98.8 94 20 167/99 (121) 97 07/31/18 09:00 Room Air 07/31/18 08:36 158/100 07/31/18 08:36 158/100 07/31/18 08:35 92 158/100 07/31/18 08:35 92 158/100 07/31/18 08:00 98.8 92 19 158/100 (119) 97 07/31/18 04:00 97.3 90 19 142/95 (111) 97 07/31/18 01:00 97.3 88 19 143/98 (113) 95 07/30/18 21:36 89 144/105 07/30/18 21:05 Nasal Cannula 2.0 28 07/30/18 21:05 92 18 Nasal Cannula 2.0 28 07/30/18 21:05 94 Nasal Cannula 2.0 28 07/30/18 21:00 Room Air 07/30/18 20:00 97.0 89 19 144/105 (118) 94 07/30/18 17:02 137/87 07/30/18 16:00 97.2 87 20 133/82 (99) 98 Intake and Output 07/30/18 07/31/18 18:59 06:59 Intake Total 1200 ml 600 ml Output Total 3000 ml 1450 ml Balance -1800 ml -850 ml Intake Oral 1200 ml 600 ml Output Urine Total 1450 ml Hemodialysis UF 3000 ml # Voids 5 Current Medications Medications (Trade) Dose Ordered Sig/Harish Route PRN Reason Start Time Stop Time Status Last Admin Dose Admin Acetaminophen (Tylenol) 650 mg Q4H PRN ORAL Mild Pain/Temp > 100.5 07/26/18 22:00 08/25/18 21:59 07/27/18 02:11 Acetaminophen/ Hydrocodone Bitart (Tok 10/325) 1 tab Q4H PRN ORAL SEVERE Pain 07/27/18 17:51 08/03/18 17:50 07/31/18 04:11 Albuterol/ Ipratropium (Albuterol/ Ipratropium) 3 ml Q4H PRN HHN Shortness of Breath 07/26/18 22:00 07/31/18 21:59 07/30/18 05:53 Aspirin (ASA) 81 mg DAILY ORAL 07/27/18 09:00 08/08/18 08:59 07/31/18 08:36 Chlorhexidine Gluconate (Laurel-Hex 2%) 1 applic DAILY@1999 TOPIC 07/27/18 20:00 08/25/18 19:59 07/30/18 21:36 Clonidine HCl (Catapres Tab) 0.1 mg Q4H PRN ORAL bp over 165 syst 07/26/18 22:00 08/25/18 21:59 07/31/18 12:59 Dextrose (Dextrose 50%) 25 ml Q30M PRN IV Hypoglycemia 07/26/18 22:00 08/07/18 16:29 Dextrose (Dextrose 50%) 50 ml Q30M PRN IV Hypoglycemia 07/26/18 22:00 08/07/18 16:29 Diltiazem HCl (Cardizem CD) 240 mg DAILY ORAL 07/27/18 09:00 08/25/18 08:59 07/31/18 08:35 Diphenhydramine HCl (Benadryl) 25 mg Q6H PRN ORAL Itching/Pruritis 07/26/18 22:30 08/07/18 16:29 07/30/18 21:44 Docusate Sodium (Colace) 100 mg THREE TIMES A DAY ORAL 07/27/18 09:00 08/20/18 17:59 07/31/18 08:35 Epoetin Juan Pablo (Procrit (for ESRD on dialysis)) 8,000 units FRI-FRI-FRI SUBQ 07/29/18 21:00 08/28/18 20:59 07/29/18 21:00 Gabapentin (Neurontin) 300 mg THREE TIMES A DAY ORAL 07/27/18 09:00 08/17/18 17:59 07/31/18 12:59 Heparin Sodium (Porcine) (Heparin 5000 units/ml) 5,000 units EVERY 12 HOURS SUBQ 07/27/18 09:00 08/14/18 21:59 07/31/18 08:37 Isosorbide Mononitrate (Imdur) 60 mg DAILY ORAL 07/27/18 09:00 08/11/18 08:59 07/31/18 08:36 Lisinopril (Prinivil) 20 mg BID ORAL 07/27/18 09:00 08/19/18 08:59 07/31/18 08:36 Methocarbamol (Robaxin) 500 mg Q8H PRN ORAL muscle spasm 07/29/18 09:15 08/28/18 09:14 07/30/18 17:13 Metoprolol Tartrate (Lopressor) 100 mg Q12HR ORAL 07/27/18 09:00 08/22/18 20:59 07/31/18 08:35 Pantoprazole (Protonix) 40 mg DAILY ORAL 07/27/18 09:00 08/10/18 21:59 07/31/18 08:35 Polyethylene Glycol (Miralax) 17 gm BEDTIME ORAL 07/27/18 21:00 08/20/18 20:59 07/29/18 21:01 Sevelamer Carbonate (Renvela) 800 mg THREE TIMES A DAY ORAL 07/27/18 09:00 08/08/18 17:59 07/31/18 12:59 Tamsulosin HCl (Flomax) 0.4 mg QHS ORAL 07/27/18 21:00 08/09/18 12:52 07/30/18 21:36 Laboratory Tests 07/31/18 06:24: White Blood Count 8.1, Red Blood Count 3.13L, Hemoglobin 9.7L, Hematocrit 31.4L , Mean Corpuscular Volume 100H, Mean Corpuscular Hemoglobin 30.9, Mean Corpuscular Hemoglobin Concent 30.8L, Red Cell Distribution Width 14.6, Platelet Count 213, Mean Platelet Volume 6.5, Neutrophils (%) (Auto) 63.8, Lymphocytes (%) (Auto) 18.1L, Monocytes (%) (Auto) 11.2H, Eosinophils (%) (Auto ) 5.8H, Basophils (%) (Auto) 1.2, Sodium Level 138, Potassium Level 4.5, Chloride Level 101, Carbon Dioxide Level 30, Anion Gap 8, Blood Urea Nitrogen 33H, Creatinine 5.2H, Estimat Glomerular Filtration Rate 13.9, Glucose Level 90 , Calcium Level 9.0, Phosphorus Level 3.0, Magnesium Level 1.6L Height (Feet): 5 Height (Inches): 11.00 Weight (Pounds): 195 General Appearance: no apparent distress Objective no change Richar Cm MD Jul 31, 2018 13:10
--- NOTE | 2018-07-31 14:24 | Cardiac Electrophysiology PN ---
Assessment/Plan Assessment/Plan 1. Troponin leak in the setting of cocaine use and renal failure. Levels are flat Avoid beta-pablo in view of active cocaine use. On aspirin and Lipitor. EF 45%. No CP 2. Hypertension. On Cardizem 360 daily, Metoprolol 100 bid, Imdur 60, Lisinopril 20 bid and HD 3. End-stage renal disease, on HD by Dr. Cm 4. Substance use with cocaine. Avoid snf beta-blockers. 5. Recent pneumonia. 6. Congestive heart failure. EF 45% 7. Severe anemia s/p PRBCs . JEANA RN Subjective Subjective No CP or SOB. Awaiting placement Objective Last 24 Hour Vital Signs Date Time Temp Pulse Resp B/P (MAP) Pulse Ox O2 Delivery O2 Flow Rate FiO2 07/31/18 12:59 167/99 07/31/18 12:00 98.8 94 20 167/99 (121) 97 07/31/18 09:00 Room Air 07/31/18 08:36 158/100 07/31/18 08:36 158/100 07/31/18 08:35 92 158/100 07/31/18 08:35 92 158/100 07/31/18 08:00 98.8 92 19 158/100 (119) 97 07/31/18 04:00 97.3 90 19 142/95 (111) 97 07/31/18 01:00 97.3 88 19 143/98 (113) 95 07/30/18 21:36 89 144/105 07/30/18 21:05 Nasal Cannula 2.0 28 07/30/18 21:05 92 18 Nasal Cannula 2.0 28 07/30/18 21:05 94 Nasal Cannula 2.0 28 07/30/18 21:00 Room Air 07/30/18 20:00 97.0 89 19 144/105 (118) 94 07/30/18 17:02 137/87 07/30/18 16:00 97.2 87 20 133/82 (99) 98 Intake and Output 07/30/18 07/31/18 18:59 06:59 Intake Total 1200 ml 600 ml Output Total 3000 ml 1450 ml Balance -1800 ml -850 ml Intake Oral 1200 ml 600 ml Output Urine Total 1450 ml Hemodialysis UF 3000 ml # Voids 5 Laboratory Tests Test 1/18/19 06:24 White Blood Count 8.1 K/UL (4.8-10.8) Red Blood Count 3.13 M/UL (4.70-6.10) L Hemoglobin 9.7 G/DL (14.2-18.0) L Hematocrit 31.4 % (42.0-52.0) L Mean Corpuscular Volume 100 FL (80-99) H Mean Corpuscular Hemoglobin 30.9 PG (27.0-31.0) Mean Corpuscular Hemoglobin Concent 30.8 G/DL (32.0-36.0) L Red Cell Distribution Width 14.6 % (11.6-14.8) Platelet Count 213 K/UL (150-450) Mean Platelet Volume 6.5 FL (6.5-10.1) Neutrophils (%) (Auto) 63.8 % (45.0-75.0) Lymphocytes (%) (Auto) 18.1 % (20.0-45.0) L Monocytes (%) (Auto) 11.2 % (1.0-10.0) H Eosinophils (%) (Auto) 5.8 % (0.0-3.0) H Basophils (%) (Auto) 1.2 % (0.0-2.0) Sodium Level 138 MMOL/L (136-145) Potassium Level 4.5 MMOL/L (3.5-5.1) Chloride Level 101 MMOL/L (98-107) Carbon Dioxide Level 30 MMOL/L (21-32) Anion Gap 8 mmol/L (5-15) Blood Urea Nitrogen 33 mg/dL (7-18) H Creatinine 5.2 MG/DL (0.55-1.30) H Estimat Glomerular Filtration Rate 13.9 mL/min (>60) Glucose Level 90 MG/DL (74-106) Calcium Level 9.0 MG/DL (8.5-10.1) Phosphorus Level 3.0 MG/DL (2.5-4.9) Magnesium Level 1.6 MG/DL (1.8-2.4) L Objective HEAD AND NECK: No JVD.Right IJ PermCath LUNGS: Clear CARDIOVASCULAR: Regular S1 and S2 with no gallop or murmur. ABDOMEN: Soft. EXTREMITIES: 1 plus pitting edema. German Gray MD Jul 31, 2018 14:24
[2018-07-31 16:00] VITALS: BP 148/95
[2018-07-31] MEDS: Albuterol/Ipratropium 3ml neb HHN PRN (19:31)
--- NOTE | 2018-07-31 19:50 | General Progress Note ---
Assessment/Plan Assessment/Plan # Anemia of chronic disease, multifactorial, curtis on ckd --> Anemia w/u has been reviewed, no eric noted --> No evidence of hemolysis is noted, peripheral smear is wnl --> Hgb goal >7. Transfuse prn. --> continue on epo sq --> on iron --> s/p blood transfusion # Congestive heart failure with acute decompensated heart failure. --> per cards management --> In tele unit --> on diuresis # Curtis, likely cardiorenal syndrome. --> Nephrology is following appreciate recs --> HD 07/30/18 --> BRIDGETT kidneys with minimal fullness, seen by renal, echogenicity is wnl # History of cocaine abuse with current positive tox screen. --> recommend cessation # Hypertension with hypertensive urgency. --> On Norvasc 5 mg bid, Hydralazine,Imdur and Clonidine patch as needed --> Avoid beta-blockers for active cocaine # Acute coronary syndrome/non-ST elevation myocardial infarction. --> per cards The date and time note entered does not reflect time and date patient was seen. GREATLY APPRECIATE CONSULTATION. Subjective Constitutional: Denies: no symptoms, chills, diaphoresis, fever, malaise, weakness, other Cardiovascular: Denies: no symptoms, chest pain, edema, irregular heart rate, lightheadedness, palpitations, syncope, other Respiratory: Denies: no symptoms, cough, orthopnea, shortness of breath, SOB with excertion, SOB at rest, sputum, stridor, wheezing, other Genitourinary: Denies: no symptoms, burning, discharge, frequency, flank pain, hematuria, incontinence, pain, urgency, other Neurologic/Psychiatric: Denies: no symptoms, anxiety, depressed, emotional problems, headache, numbness, paresthesia, pre-existing deficit, seizure, tingling, tremors, weakness, other Endocrine: Denies: no symptoms, excessive sweating, flushing, intolerance to cold, intolerance to heat, increased hunger, increased thirst, increased urine, unexplained weight gain, unexplained weight loss, other Hematologic/Lymphatic: Denies: no symptoms, anemia, easy bleeding, easy bruising, other Allergies: Coded Allergies: No Known Allergies (Unverified , 07/08/18) Subjective 07/12: no events, cr trending, h/h stable, on epo 07/14: transfuse one unit 07/13, diruresed, refused mendez, seen by cards, bp better 07/15 : Pt is seen in the room, awake and alert, S/P blood transfusion, refusing HD 07/16 : Pt is awake and resting in bed. waiting on sister to make HD decision, no events 07/17 Pt is seen in the room,awake and alert, appears to be agreeable for placement of dialysis cath and dialysis . 07/18: Pt is seen in the room, No CP or SOB. Had HD today. 07/19: Pt is awake and resting in bed. Denies pain, SOB or fevers and chills. Has HD scheduled for 07/20/18, currently stable. 07/20: received hand held nebulizer, no other events, no f.c 07/21 : Pt seen by bedside, continues on breathing treatment, HD 07/22/18, no events 07/22: pending snf placement and outpatient hd 07/23: awake and resting in bed. no acute events, waiting placement and outpatient HD 07/24: no major events, waiting placement, seen by gi, recs reviewed, no complaints, on epo 07/25: CXR for patient c/o sob. O2 2L via NC administered. patient is A/A/Ox4. patient BLE edematous 07/26: Continues on oxygen of 3L/min via N/C. no acute respiratory distress is noted. Permacath to right chest for HD is intact 07/27: awake and comfortable, alert and oriented , next HD 07/28 07/28: Pt is seen by bedside, bipap is D/C, HD scheduled today, no events 07/29: Pt is awake and calm, Denies pain, SOB or fevers and chills, next HD 07/30. 07/30: hd pending, no major events, some sob 07/31: no complaints this am, r permacath in chest without issue, placement pending Objective Last 24 Hour Vital Signs Date Time Temp Pulse Resp B/P (MAP) Pulse Ox O2 Delivery O2 Flow Rate FiO2 07/31/18 19:41 88 20 99 Nasal Cannula 2.0 28 07/31/18 19:32 Nasal Cannula 2.0 28 07/31/18 19:32 96 Nasal Cannula 2.0 28 07/31/18 19:31 88 18 Nasal Cannula 2.0 28 07/31/18 19:31 88 20 96 Nasal Cannula 2.0 28 07/31/18 17:12 148/95 07/31/18 16:00 98.9 89 20 148/95 (112) 97 07/31/18 12:59 167/99 07/31/18 12:00 98.8 94 20 167/99 (121) 97 07/31/18 09:00 Room Air 07/31/18 08:36 158/100 07/31/18 08:36 158/100 07/31/18 08:35 92 158/100 07/31/18 08:35 92 158/100 07/31/18 08:00 98.8 92 19 158/100 (119) 97 07/31/18 04:00 97.3 90 19 142/95 (111) 97 07/31/18 01:00 97.3 88 19 143/98 (113) 95 07/30/18 21:36 89 144/105 07/30/18 21:05 Nasal Cannula 2.0 28 07/30/18 21:05 92 18 Nasal Cannula 2.0 28 07/30/18 21:05 94 Nasal Cannula 2.0 28 07/30/18 21:00 Room Air 07/30/18 20:00 97.0 89 19 144/105 (118) 94 Intake and Output 07/30/18 07/31/18 19:00 07:00 Intake Total 1200 ml 600 ml Output Total 3000 ml 1450 ml Balance -1800 ml -850 ml Intake Oral 1200 ml 600 ml Output Urine Total 1450 ml Hemodialysis UF 3000 ml # Voids 5 Laboratory Tests 07/31/18 06:24: White Blood Count 8.1, Red Blood Count 3.13L, Hemoglobin 9.7L, Hematocrit 31.4L , Mean Corpuscular Volume 100H, Mean Corpuscular Hemoglobin 30.9, Mean Corpuscular Hemoglobin Concent 30.8L, Red Cell Distribution Width 14.6, Platelet Count 213, Mean Platelet Volume 6.5, Neutrophils (%) (Auto) 63.8, Lymphocytes (%) (Auto) 18.1L, Monocytes (%) (Auto) 11.2H, Eosinophils (%) (Auto ) 5.8H, Basophils (%) (Auto) 1.2, Sodium Level 138, Potassium Level 4.5, Chloride Level 101, Carbon Dioxide Level 30, Anion Gap 8, Blood Urea Nitrogen 33H, Creatinine 5.2H, Estimat Glomerular Filtration Rate 13.9, Glucose Level 90 , Calcium Level 9.0, Phosphorus Level 3.0, Magnesium Level 1.6L Height (Feet): 5 Height (Inches): 11.00 Weight (Pounds): 195 Objective Physical Exam General Appearance: A+O x2 NAD HEENT: normocephalic, atraumatic, R permacath Neck: non-tender, normal alignment Respiratory/Chest: chest wall non-tender, lungs clear Cardiovascular/Chest: normal peripheral pulses, normal rate Abdomen: normal bowel sounds, non tender Extremities: normal range of motion Shane Mary MD Jul 31, 2018 19:50
[2018-07-31 20:00] VITALS: BP 137/92
[2018-07-31] MEDS: Tamsulosin 0.4mg cap ORAL SCH (20:38)
[2018-07-31] MEDS: Dyna-Hex 2% Top Sol 2oz TOPIC SCH (20:39)
[2018-07-31] MEDS: Epogen (for ESRD on dialysis) SUBQ SCH (20:41)
[2018-07-31] MEDS: Miralax 17gm pkt ORAL SCH (20:46)
[2018-07-31] MEDS: Methocarbamol 500mg tab ORAL PRN (20:51)
[2018-08-01] VITALS: BP 134/84
[2018-08-01] MEDS: HYDROcodone/Acetamin 10/325 tab ORAL PRN ×3 (03:00→18:13)
[2018-08-01 04:00] VITALS: BP 140/81
[2018-08-01 05:45] LABS: BASOPHILS % (AUTO) 1.3 % (0.0-2.0); EOSINOPHILS % (AUTO) 9.5 % (0.0-3.0); HEMATOCRIT 28.7 % (42.0-52.0); LYMPHOCYTES % (AUTO) 18.6 % (20.0-45.0); MEAN CORPUSCULAR VOLUME 100 FL (80-99); MONOCYTES % (AUTO) 14.6 % (1.0-10.0); NEUTROPHILS % (AUTO) 56.1 % (45.0-75.0); PLATELET COUNT 213 K/UL (150-450); RED BLOOD COUNT 2.89 M/UL (4.70-6.10); RED CELL DISTRIBUTION WIDTH 14.7 % (11.6-14.8); WHITE BLOOD COUNT 7.1 K/UL (4.8-10.8)
[2018-08-01 06:11] LABS: ALANINE AMINOTRANSFERASE 15 U/L (12-78); ALBUMIN 2.7 G/DL (3.4-5.0); ALBUMIN/GLOBULIN RATIO 0.6 (1.0-2.7); ALKALINE PHOSPHATASE 121 U/L (46-116); ANION GAP 9 mmol/L (5-15); ASPARTATE AMINO TRANSFERASE 9 U/L (15-37); BILIRUBIN,TOTAL 0.2 MG/DL (0.2-1.0); BLOOD UREA NITROGEN 39 mg/dL (7-18); CALCIUM 8.8 MG/DL (8.5-10.1); CARBON DIOXIDE 27 MMOL/L (21-32); CHLORIDE 102 MMOL/L (98-107); CHOLESTEROL 124 MG/DL (< 200); CREATININE 5.8 MG/DL (0.55-1.30); HDL CHOLESTEROL 58 MG/DL (40-60); PHOSPHORUS 3.2 MG/DL (2.5-4.9); POTASSIUM 4.6 MMOL/L (3.5-5.1); SODIUM 138 MMOL/L (136-145); TRIGLYCERIDES 56 MG/DL (30-150)
[2018-08-01 08:00] VITALS: BP 97/81
[2018-08-01] MEDS: Docusate 100mg cap ORAL SCH ×5 (09:00→18:00)
--- NOTE | 2018-08-01 11:30 | Nephrology Progress Note ---
Assessment/Plan Problem List: (1) Renal failure (ARF), acute on chronic (2) Cocaine abuse (3) Acute exacerbation of CHF (congestive heart failure) (4) Hypertensive cardiomegaly with heart failure (5) Volume overload Assessment Acute on Chronic renal failure Anemia Elevated troponin Hypertensive renal and heart disease Cocaine abuse Cardiomyopathy Plan next HD 08/01 in process readjust bp meds Dc planning increase Neurontin transfuse one unit 07/[address] Moura 2D Echo 55% ej fx BRIDGETT kidneys * Mild fullness of the bilateral renal collecting systems without radiographically appreciable stone and observed bilateral ureteral jets. Findings may be related to mild bladder distention. Consider repeat exam after bladder decompression. monitor renal parameters Avoid nephrotoxics renal diet flomax Subjective ROS Limited/Unobtainable: No Objective Objective Last 24 Hour Vital Signs Date Time Temp Pulse Resp B/P (MAP) Pulse Ox O2 Delivery O2 Flow Rate FiO2 08/01/18 09:00 Room Air 08/01/18 08:00 98.6 87 17 97/81 (86) 95 08/01/18 04:00 97.7 86 19 140/81 (100) 95 08/01/18 00:00 97.9 79 19 134/84 (101) 96 07/31/18 21:00 Room Air 07/31/18 20:40 89 137/92 07/31/18 20:00 97.9 89 19 137/92 (107) 97 07/31/18 19:41 88 20 99 Nasal Cannula 2.0 28 07/31/18 19:32 Nasal Cannula 2.0 28 07/31/18 19:32 96 Nasal Cannula 2.0 28 07/31/18 19:31 88 18 Nasal Cannula 2.0 28 07/31/18 19:31 88 20 96 Nasal Cannula 2.0 28 07/31/18 17:12 148/95 07/31/18 16:00 98.9 89 20 148/95 (112) 97 07/31/18 12:59 167/99 07/31/18 12:00 98.8 94 20 167/99 (121) 97 Intake and Output 07/31/18 08/01/18 19:00 07:00 Intake Total 480 ml 600 ml Output Total 400 ml Balance 80 ml 600 ml Intake Oral 480 ml 600 ml Output Urine Total 400 ml # Voids 4 Laboratory Tests 08/01/18 05:10: White Blood Count 7.1, Red Blood Count 2.89L, Hemoglobin 9.0L, Hematocrit 28.7L , Mean Corpuscular Volume 100H, Mean Corpuscular Hemoglobin 31.2H, Mean Corpuscular Hemoglobin Concent 31.3L, Red Cell Distribution Width 14.7, Platelet Count 213, Mean Platelet Volume 6.5, Neutrophils (%) (Auto) 56.1, Lymphocytes (%) (Auto) 18.6L, Monocytes (%) (Auto) 14.6H, Eosinophils (%) (Auto ) 9.5H, Basophils (%) (Auto) 1.3, Sodium Level 138, Potassium Level 4.6, Chloride Level 102, Carbon Dioxide Level 27, Anion Gap 9, Blood Urea Nitrogen 39H, Creatinine 5.8H, Estimat Glomerular Filtration Rate 12.2, Glucose Level 113H, Uric Acid 5.4, Calcium Level 8.8, Phosphorus Level 3.2, Magnesium Level 1.5L, Total Bilirubin 0.2, Aspartate Amino Transf (AST/SGOT) 9L, Alanine Aminotransferase (ALT/SGPT) 15, Alkaline Phosphatase 121H, Troponin I 0.039, C- Reactive Protein, Quantitative 6.8H, Pro-B-Type Natriuretic Peptide [id number], Total Protein 7.0, Albumin 2.7L, Globulin 4.3, Albumin/Globulin Ratio 0.6L, Triglycerides Level 56, Cholesterol Level 124, LDL Cholesterol 56, HDL Cholesterol 58, Cholesterol/HDL Ratio 2.1L Height (Feet): 5 Height (Inches): 11.00 Weight (Pounds): 201 General Appearance: no apparent distress Objective no change Richar Cm MD Aug 01, 2018 11:30
[2018-08-01 12:00] VITALS: BP 150/78
[2018-08-01] MEDS: Imdur 30mg tab ORAL SCH (12:12)
[2018-08-01] MEDS: Lisinopril 20mg tab ORAL SCH ×2 (12:13→18:10)
[2018-08-01] MEDS: Methocarbamol 500mg tab ORAL PRN (12:13)
[2018-08-01] MEDS: dilTIAZem HCl CD 180mg cap ORAL SCH (12:14)
[2018-08-01] MEDS: Aspirin Baby 81mg ORAL SCH (12:14)
[2018-08-01] MEDS: Heparin 5000 units/ml inj SUBQ SCH ×2 (12:26→20:44)
[2018-08-01 16:00] VITALS: BP 142/79
[2018-08-01] MEDS ORDERED: Albuterol/Ipratropium 3ml neb HHN PRN (16:30)
[2018-08-01] MEDS: Albuterol/Ipratropium 3ml neb HHN SCH ×2 (16:54→20:10)
--- NOTE | 2018-08-01 17:46 | Pulmonology Progress Note ---
Assessment/Plan Assessment/Plan Pulmonary Progress Note Assessment/Plan Problems: (1) Acute exacerbation of CHF (congestive heart failure) (2) Hypertensive cardiomegaly with heart failure (3) ACS (acute coronary syndrome) (4) Cocaine abuse (5) ARF (acute renal failure) (6) DDD (degenerative disc disease) (7) Epistaxis (8) Hypercapnic respiratory failure TREATMENT PLAN: -BiPAP 12/5 qHS and PRN - DECLINES -Titrate FiO2 -PRN DUOnebs -HD per renal with UF as able -Control BP -F/U cards and renal recs -F/U heme recs -F/U GI recs ---> plan for outpatient EGD/colo -DVT Px: hep SQ -Pain control/supportive care - minimize narcotics/sedatives -F/U pain management recs -Appreciate psych eval, has capacity, F/U recs -SW assistance in placement Subjective Allergies: Coded Allergies: No Known Allergies (Unverified , 07/08/18) Subjective ROHINI AFVSS, stable O2 needs Feels the same, no sig SOB, no CP, no F/C Objective Vital Signs Noted General Appearance: WD/WN, no acute distress HEENT: normocephalic, atraumatic, anicteric, mucous membranes moist Respiratory/Chest: chest wall non-tender, lungs clear, normal breath sounds, no respiratory distress Cardiovascular: normal peripheral pulses, normal rate, regular rhythm Abdomen: normal bowel sounds, soft, non tender, no organomegaly, non distended , no mass Extremities: no cyanosis, no clubbing, no edema Laboratory Tests 07/31/18 06:24: White Blood Count 8.1, Red Blood Count 3.13L, Hemoglobin 9.7L, Hematocrit 31.4L , Mean Corpuscular Volume 100H, Mean Corpuscular Hemoglobin 30.9, Mean Corpuscular Hemoglobin Concent 30.8L, Red Cell Distribution Width 14.6, Platelet Count 213, Mean Platelet Volume 6.5, Neutrophils (%) (Auto) 63.8, Lymphocytes (%) (Auto) 18.1L, Monocytes (%) (Auto) 11.2H, Eosinophils (%) (Auto ) 5.8H, Basophils (%) (Auto) 1.2, Sodium Level 138, Potassium Level 4.5, Chloride Level 101, Carbon Dioxide Level 30, Anion Gap 8, Blood Urea Nitrogen 33H, Creatinine 5.2H, Estimat Glomerular Filtration Rate 13.9, Glucose Level 90 , Calcium Level 9.0, Phosphorus Level 3.0, Magnesium Level 1.6L Current Medications Medications (Trade) Dose Ordered Sig/Harish Route PRN Reason Start Time Stop Time Status Last Admin Dose Admin Acetaminophen (Tylenol) 650 mg Q4H PRN ORAL Mild Pain/Temp > 100.5 07/26/18 22:00 08/25/18 21:59 07/27/18 02:11 Acetaminophen/ Hydrocodone Bitart ([place] 10/325) 1 tab Q4H PRN ORAL SEVERE Pain 07/27/18 17:51 08/03/18 17:50 07/31/18 04:11 Albuterol/ Ipratropium (Albuterol/ Ipratropium) 3 ml Q4H PRN HHN Shortness of Breath 07/26/18 22:00 07/31/18 21:59 07/30/18 05:53 Aspirin (ASA) 81 mg DAILY ORAL 07/27/18 09:00 08/08/18 08:59 07/31/18 08:36 Chlorhexidine Gluconate (Laurel-Hex 2%) 1 applic DAILY@2000 TOPIC 07/27/18 20:00 08/25/18 19:59 07/30/18 21:36 Clonidine HCl (Catapres Tab) 0.1 mg Q4H PRN ORAL bp over 165 syst 07/26/18 22:00 08/25/18 21:59 Dextrose (Dextrose 50%) 25 ml Q30M PRN IV Hypoglycemia 07/26/18 22:00 08/07/18 16:29 Dextrose (Dextrose 50%) 50 ml Q30M PRN IV Hypoglycemia 07/26/18 22:00 08/07/18 16:29 Diltiazem HCl (Cardizem CD) 240 mg DAILY ORAL 07/27/18 09:00 08/25/18 08:59 07/31/18 08:35 Diphenhydramine HCl (Benadryl) 25 mg Q6H PRN ORAL Itching/Pruritis 07/26/18 22:30 08/07/18 16:29 07/30/18 21:44 Docusate Sodium (Colace) 100 mg THREE TIMES A DAY ORAL 07/27/18 09:00 08/20/18 17:59 07/31/18 08:35 Epoetin Juan Pablo (Procrit (for ESRD on dialysis)) 8,000 units FRI-FRI-FRI SUBQ 07/29/18 21:00 08/28/18 20:59 07/29/18 21:00 Gabapentin (Neurontin) 300 mg THREE TIMES A DAY ORAL 07/27/18 09:00 08/17/18 17:59 07/31/18 08:35 Heparin Sodium (Porcine) (Heparin 5000 units/ml) 5,000 units EVERY 12 HOURS SUBQ 07/27/18 09:00 08/14/18 21:59 07/31/18 08:37 Isosorbide Mononitrate (Imdur) 60 mg DAILY ORAL 07/27/18 09:00 08/11/18 08:59 07/31/18 08:36 Lisinopril (Prinivil) 20 mg BID ORAL 07/27/18 09:00 08/19/18 08:59 07/31/18 08:36 Methocarbamol (Robaxin) 500 mg Q8H PRN ORAL muscle spasm 07/29/18 09:15 08/28/18 09:14 07/30/18 17:13 Metoprolol Tartrate (Lopressor) 100 mg Q12HR ORAL 07/27/18 09:00 08/22/18 20:59 07/31/18 08:35 Pantoprazole (Protonix) 40 mg DAILY ORAL 07/27/18 09:00 08/10/18 21:59 07/31/18 08:35 Polyethylene Glycol (Miralax) 17 gm BEDTIME ORAL 07/27/18 21:00 08/20/18 20:59 07/29/18 21:01 Sevelamer Carbonate (Renvela) 800 mg THREE TIMES A DAY ORAL 07/27/18 09:00 08/08/18 17:59 07/31/18 08:36 Tamsulosin HCl (Flomax) 0.4 mg QHS ORAL 07/27/18 21:00 08/09/18 12:52 07/30/18 21:36 Subjective ROS Limited/Unobtainable: No Allergies: Coded Allergies: No Known Allergies (Unverified , 07/08/18) Objective Last 24 Hour Vital Signs Date Time Temp Pulse Resp B/P (MAP) Pulse Ox O2 Delivery O2 Flow Rate FiO2 08/01/18 17:01 86 16 100 Nasal Cannula 2.0 28 08/01/18 16:54 88 20 100 Nasal Cannula 08/01/18 16:54 Nasal Cannula 2.0 28 08/01/18 16:54 28 08/01/18 16:54 100 Nasal Cannula 2.0 28 08/01/18 16:00 98.2 86 18 142/79 (100) 99 08/01/18 15:57 Room Air 08/01/18 12:44 98.3 08/01/18 12:14 62 150/78 08/01/18 12:13 62 150/78 08/01/18 12:13 150/78 08/01/18 12:12 150/78 08/01/18 12:00 98.3 62 19 150/78 (102) 96 08/01/18 09:00 Room Air 08/01/18 08:00 98.6 87 17 97/81 (86) 95 08/01/18 04:00 97.7 86 19 140/81 (100) 95 08/01/18 00:00 97.9 79 19 134/84 (101) 96 07/31/18 21:00 Room Air 07/31/18 20:40 89 137/92 07/31/18 20:00 97.9 89 19 137/92 (107) 97 07/31/18 19:41 88 20 99 Nasal Cannula 2.0 28 07/31/18 19:32 Nasal Cannula 2.0 28 07/31/18 19:32 96 Nasal Cannula 2.0 28 07/31/18 19:31 88 18 Nasal Cannula 2.0 28 07/31/18 19:31 88 20 96 Nasal Cannula 2.0 28 Intake and Output 07/31/18 08/01/18 18:59 06:59 Intake Total 480 ml 600 ml Output Total 400 ml Balance 80 ml 600 ml Intake Oral 480 ml 600 ml Output Urine Total 400 ml # Voids 4 Laboratory Tests 08/01/18 05:10: White Blood Count 7.1, Red Blood Count 2.89L, Hemoglobin 9.0L, Hematocrit 28.7L , Mean Corpuscular Volume 100H, Mean Corpuscular Hemoglobin 31.2H, Mean Corpuscular Hemoglobin Concent 31.3L, Red Cell Distribution Width 14.7, Platelet Count 213, Mean Platelet Volume 6.5, Neutrophils (%) (Auto) 56.1, Lymphocytes (%) (Auto) 18.6L, Monocytes (%) (Auto) 14.6H, Eosinophils (%) (Auto ) 9.5H, Basophils (%) (Auto) 1.3, Sodium Level 138, Potassium Level 4.6, Chloride Level 102, Carbon Dioxide Level 27, Anion Gap 9, Blood Urea Nitrogen 39H, Creatinine 5.8H, Estimat Glomerular Filtration Rate 12.2, Glucose Level 113H, Uric Acid 5.4, Calcium Level 8.8, Phosphorus Level 3.2, Magnesium Level 1.5L, Total Bilirubin 0.2, Aspartate Amino Transf (AST/SGOT) 9L, Alanine Aminotransferase (ALT/SGPT) 15, Alkaline Phosphatase 121H, Troponin I 0.039, C- Reactive Protein, Quantitative 6.8H, Pro-B-Type Natriuretic Peptide 93647M, Total Protein 7.0, Albumin 2.7L, Globulin 4.3, Albumin/Globulin Ratio 0.6L, Triglycerides Level 56, Cholesterol Level 124, LDL Cholesterol 56, HDL Cholesterol 58, Cholesterol/HDL Ratio 2.1L Current Medications Medications (Trade) Dose Ordered Sig/Harish Route PRN Reason Start Time Stop Time Status Last Admin Dose Admin Acetaminophen (Tylenol) 650 mg Q4H PRN ORAL Mild Pain/Temp > 100.5 07/26/18 22:00 08/25/18 21:59 07/27/18 02:11 Acetaminophen/ Hydrocodone Bitart ([place] 10/325) 1 tab Q4H PRN ORAL SEVERE Pain 07/27/18 17:51 08/03/18 17:50 08/01/18 12:14 Albuterol/ Ipratropium (Albuterol/ Ipratropium) 3 ml Q4H PRN HHN Shortness of Breath 08/01/18 16:30 08/06/18 16:29 Albuterol/ Ipratropium (Albuterol/ Ipratropium) 3 ml Q6HRT HHN 08/01/18 16:30 08/06/18 16:29 08/01/18 16:54 Aspirin (ASA) 81 mg DAILY ORAL 07/27/18 09:00 08/08/18 08:59 08/01/18 12:14 Chlorhexidine Gluconate (Laurel-Hex 2%) 1 applic DAILY@2000 TOPIC 07/27/18 20:00 08/25/18 19:59 07/31/18 20:39 Clonidine HCl (Catapres Tab) 0.1 mg Q4H PRN ORAL bp over 165 syst 07/26/18 22:00 08/25/18 21:59 07/31/18 12:59 Dextrose (Dextrose 50%) 25 ml Q30M PRN IV Hypoglycemia 07/26/18 22:00 08/07/18 16:29 Dextrose (Dextrose 50%) 50 ml Q30M PRN IV Hypoglycemia 07/26/18 22:00 08/07/18 16:29 Diltiazem HCl (Cardizem CD) 360 mg DAILY ORAL 08/01/18 09:00 08/25/18 08:59 08/01/18 12:14 Diphenhydramine HCl (Benadryl) 25 mg Q6H PRN ORAL Itching/Pruritis 07/26/18 22:30 08/07/18 16:29 08/01/18 03:00 Docusate Sodium (Colace) 100 mg THREE TIMES A DAY ORAL 07/27/18 09:00 08/20/18 17:59 07/31/18 08:35 Epoetin Juan Pablo (Procrit (for ESRD on dialysis)) 8,000 units FRI-FRI-FRI SUBQ 07/29/18 21:00 08/28/18 20:59 07/31/18 20:41 Gabapentin (Neurontin) 300 mg THREE TIMES A DAY ORAL 07/27/18 09:00 08/17/18 17:59 08/01/18 12:13 Heparin Sodium (Porcine) (Heparin 5000 units/ml) 5,000 units EVERY 12 HOURS SUBQ 07/27/18 09:00 08/14/18 21:59 08/01/18 12:26 Isosorbide Mononitrate (Imdur) 60 mg DAILY ORAL 07/27/18 09:00 08/11/18 08:59 08/01/18 12:12 Lisinopril (Prinivil) 20 mg BID ORAL 07/27/18 09:00 08/19/18 08:59 08/01/18 12:13 Methocarbamol (Robaxin) 500 mg Q8H PRN ORAL muscle spasm 07/29/18 09:15 08/28/18 09:14 08/01/18 12:13 Metoprolol Tartrate (Lopressor) 100 mg Q12HR ORAL 07/27/18 09:00 08/22/18 20:59 08/01/18 12:13 Pantoprazole (Protonix) 40 mg DAILY ORAL 07/27/18 09:00 08/10/18 21:59 08/01/18 12:13 Polyethylene Glycol (Miralax) 17 gm BEDTIME ORAL 07/27/18 21:00 08/20/18 20:59 07/29/18 21:01 Sevelamer Carbonate (Renvela) 800 mg THREE TIMES A DAY ORAL 07/27/18 09:00 08/08/18 17:59 08/01/18 12:13 Tamsulosin HCl (Flomax) 0.4 mg QHS ORAL 07/27/18 21:00 08/09/18 12:52 07/31/18 20:38 Pablito Mac MD Aug 01, 2018 17:46
--- NOTE | 2018-08-01 19:08 | Cardiac Electrophysiology PN ---
Assessment/Plan Assessment/Plan 1. Troponin leak in the setting of cocaine use and renal failure. Levels are flat Avoid beta-pablo in view of active cocaine use. On aspirin and Lipitor. EF 45%. No CP 2. Hypertension. On Cardizem 360 daily, Metoprolol 100 bid, Imdur 60, Lisinopril 20 bid and HD 3. End-stage renal disease, on HD by Dr. Cm 4. Substance use with cocaine. 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 5. Recent pneumonia. 6. Congestive heart failure with EF 45% 7. Anemia s/p PRBCs . DW RN Subjective Subjective No CP or SOB. Awaiting arrangement for HD as out patient Objective Last 24 Hour Vital Signs Date Time Temp Pulse Resp B/P (MAP) Pulse Ox O2 Delivery O2 Flow Rate FiO2 08/01/18 18:43 98.2 08/01/18 18:10 142/79 08/01/18 17:01 86 16 100 Nasal Cannula 2.0 28 08/01/18 16:54 88 20 100 Nasal Cannula 08/01/18 16:54 Nasal Cannula 2.0 28 08/01/18 16:54 28 08/01/18 16:54 100 Nasal Cannula 2.0 28 08/01/18 16:00 98.2 86 18 142/79 (100) 99 08/01/18 15:57 Room Air 08/01/18 12:14 62 150/78 08/01/18 12:13 62 150/78 08/01/18 12:13 150/78 08/01/18 12:12 150/78 08/01/18 12:00 98.3 62 19 150/78 (102) 96 08/01/18 09:00 Room Air 08/01/18 08:00 98.6 87 17 97/81 (86) 95 08/01/18 04:00 97.7 86 19 140/81 (100) 95 08/01/18 00:00 97.9 79 19 134/84 (101) 96 07/31/18 21:00 Room Air 07/31/18 20:40 89 137/92 07/31/18 20:00 97.9 89 19 137/92 (107) 97 07/31/18 19:41 88 20 99 Nasal Cannula 2.0 28 07/31/18 19:32 Nasal Cannula 2.0 28 07/31/18 19:32 96 Nasal Cannula 2.0 28 07/31/18 19:31 88 18 Nasal Cannula 2.0 28 07/31/18 19:31 88 20 96 Nasal Cannula 2.0 28 Intake and Output 07/31/18 08/01/18 18:59 06:59 Intake Total 480 ml 600 ml Output Total 400 ml Balance 80 ml 600 ml Intake Oral 480 ml 600 ml Output Urine Total 400 ml # Voids 4 Laboratory Tests Test 08/01/18 05:10 White Blood Count 7.1 K/UL (4.8-10.8) Red Blood Count 2.89 M/UL (4.70-6.10) L Hemoglobin 9.0 G/DL (14.2-18.0) L Hematocrit 28.7 % (42.0-52.0) L Mean Corpuscular Volume 100 FL (80-99) H Mean Corpuscular Hemoglobin 31.2 PG (27.0-31.0) H Mean Corpuscular Hemoglobin Concent 31.3 G/DL (32.0-36.0) L Red Cell Distribution Width 14.7 % (11.6-14.8) Platelet Count 213 K/UL (150-450) Mean Platelet Volume 6.5 FL (6.5-10.1) Neutrophils (%) (Auto) 56.1 % (45.0-75.0) Lymphocytes (%) (Auto) 18.6 % (20.0-45.0) L Monocytes (%) (Auto) 14.6 % (1.0-10.0) H Eosinophils (%) (Auto) 9.5 % (0.0-3.0) H Basophils (%) (Auto) 1.3 % (0.0-2.0) Sodium Level 138 MMOL/L (136-145) Potassium Level 4.6 MMOL/L (3.5-5.1) Chloride Level 102 MMOL/L (98-107) Carbon Dioxide Level 27 MMOL/L (21-32) Anion Gap 9 mmol/L (5-15) Blood Urea Nitrogen 39 mg/dL (7-18) H Creatinine 5.8 MG/DL (0.55-1.30) H Estimat Glomerular Filtration Rate 12.2 mL/min (>60) Glucose Level 113 MG/DL (74-106) H Uric Acid 5.4 MG/DL (2.6-7.2) Calcium Level 8.8 MG/DL (8.5-10.1) Phosphorus Level 3.2 MG/DL (2.5-4.9) Magnesium Level 1.5 MG/DL (1.8-2.4) L Total Bilirubin 0.2 MG/DL (0.2-1.0) Aspartate Amino Transf (AST/SGOT) 9 U/L (15-37) L Alanine Aminotransferase (ALT/SGPT) 15 U/L (12-78) Alkaline Phosphatase 121 U/L (46-116) H Troponin I 0.039 ng/mL (0.000-0.056) C-Reactive Protein, Quantitative 6.8 mg/dL (0.00-0.90) H Pro-B-Type Natriuretic Peptide 66606 pg/mL (0-125) H Total Protein 7.0 G/DL (6.4-8.2) Albumin 2.7 G/DL (3.4-5.0) L Globulin 4.3 g/dL Albumin/Globulin Ratio 0.6 (1.0-2.7) L Triglycerides Level 56 MG/DL (30-150) Cholesterol Level 124 MG/DL (< 200) LDL Cholesterol 56 mg/dL (<100) HDL Cholesterol 58 MG/DL (40-60) Cholesterol/HDL Ratio 2.1 (3.3-4.4) L Objective HEAD AND NECK: No JVD.Right IJ PermCath LUNGS: Clear CARDIOVASCULAR: Regular S1 and S2 with no gallop or murmur. ABDOMEN: Soft. EXTREMITIES: 1 plus pitting edema. German Gray MD Aug 01, 2018 19:08
[2018-08-01 20:00] VITALS: BP 133/79
[2018-08-01] MEDS: Tamsulosin 0.4mg cap ORAL SCH (20:42)
[2018-08-01] MEDS: Dyna-Hex 2% Top Sol 2oz TOPIC SCH (20:42)
[2018-08-01] MEDS: Miralax 17gm pkt ORAL SCH ×2 (20:44→20:49)
[2018-08-02] VITALS (7 sets, daily range): BP systolic 121–150; BP diastolic 75–93
[2018-08-02] MEDS: Albuterol/Ipratropium 3ml neb HHN SCH ×4 (00:32→20:00)
[2018-08-02] MEDS: HYDROcodone/Acetamin 10/325 tab ORAL PRN ×4 (01:20→20:17)
[2018-08-02] MEDS: Methocarbamol 500mg tab ORAL PRN ×3 (01:20→20:17)
[2018-08-02] MEDS: Aspirin Baby 81mg ORAL SCH (08:51)
[2018-08-02] MEDS: Docusate 100mg cap ORAL SCH ×3 (08:55→17:45)
[2018-08-02] MEDS: Heparin 5000 units/ml inj SUBQ SCH ×2 (08:56→20:19)
[2018-08-02] MEDS: Imdur 30mg tab ORAL SCH (08:59)
[2018-08-02] MEDS: dilTIAZem HCl CD 180mg cap ORAL SCH (09:00)
[2018-08-02] MEDS: Lisinopril 20mg tab ORAL SCH ×2 (09:00→17:46)
--- NOTE | 2018-08-02 12:23 | Nephrology Progress Note ---
Assessment/Plan Problem List: (1) Renal failure (ARF), acute on chronic (2) Cocaine abuse (3) Acute exacerbation of CHF (congestive heart failure) (4) Hypertensive cardiomegaly with heart failure (5) Volume overload Assessment Acute on Chronic renal failure Anemia Elevated troponin Hypertensive renal and heart disease Cocaine abuse Cardiomyopathy Plan next HD 08/04 readjust bp meds Dc planning increase Neurontin transfuse one unit 07/[address] Moura 2D Echo 55% ej fx BRIDGETT kidneys * Mild fullness of the bilateral renal collecting systems without radiographically appreciable stone and observed bilateral ureteral jets. Findings may be related to mild bladder distention. Consider repeat exam after bladder decompression. monitor renal parameters Avoid nephrotoxics renal diet flomax Subjective ROS Limited/Unobtainable: No Objective Objective Last 24 Hour Vital Signs Date Time Temp Pulse Resp B/P (MAP) Pulse Ox O2 Delivery O2 Flow Rate FiO2 08/02/18 09:00 Room Air 08/02/18 08:59 121/82 08/02/18 08:54 79 121/82 08/02/18 08:15 84 16 100 Nasal Cannula 2.0 28 08/02/18 08:09 Nasal Cannula 2.0 28 08/02/18 08:09 28 08/02/18 08:09 84 20 97 Nasal Cannula 2.0 28 08/02/18 08:09 84 20 Nasal Cannula 2.0 28 08/02/18 08:09 98 Nasal Cannula 2.0 28 08/02/18 08:00 98.9 79 19 121/82 (95) 96 08/02/18 04:00 80 18 125/84 (98) 96 08/02/18 00:44 87 16 100 Nasal Cannula 2.0 28 08/02/18 00:32 28 08/02/18 00:32 86 20 97 Nasal Cannula 2.0 28 08/02/18 00:00 85 20 130/86 (101) 98 08/01/18 21:00 Room Air 08/01/18 20:42 84 142/79 08/01/18 20:27 84 16 100 Nasal Cannula 2.0 28 08/01/18 20:11 87 20 Nasal Cannula 2.0 28 08/01/18 20:11 87 20 98 Nasal Cannula 2.0 28 08/01/18 20:11 28 08/01/18 20:00 97.7 85 20 133/79 (97) 98 08/01/18 18:43 98.2 08/01/18 18:10 142/79 08/01/18 17:01 86 16 100 Nasal Cannula 2.0 28 08/01/18 16:54 88 20 100 Nasal Cannula 08/01/18 16:54 Nasal Cannula 2.0 28 08/01/18 16:54 28 08/01/18 16:54 100 Nasal Cannula 2.0 28 08/01/18 16:00 98.2 86 18 142/79 (100) 99 08/01/18 15:57 Room Air Intake and Output 08/01/18 08/02/18 19:00 07:00 Intake Total 350 ml Output Total 3000 ml Balance -3000 ml 350 ml Intake Oral 350 ml Hemodialysis UF 3000 ml # Voids 4 Height (Feet): 5 Height (Inches): 11.00 Weight (Pounds): 201 General Appearance: no apparent distress Cardiovascular: normal rate Respiratory/Chest: decreased breath sounds Abdomen: soft Objective no change Richar Cm MD Aug 02, 2018 12:23
[2018-08-02] MEDS: Magnesium Oxide 400mg tab ORAL SCH ×2 (13:08→17:45)
--- NOTE | 2018-08-02 15:04 | Cardiac Electrophysiology PN ---
Assessment/Plan Assessment/Plan 1. Troponin leak in the setting of cocaine use and renal failure. Levels are flat Avoid beta-pablo in view of active cocaine use. On aspirin and Lipitor. EF 45%. No CP 2. Hypertension. On Cardizem 360 daily, Metoprolol 100 bid, Imdur 60, Lisinopril 20 bid and HD 3. End-stage renal disease, on HD by Dr. Cm 4. Substance use with cocaine. Avoid termite helper beta-blockers. 5. Recent pneumonia. 6. Congestive heart failure with EF 45% 7. Anemia s/p PRBCs . 8. Placement pending DW RN Subjective Subjective No CP or SOB. DC planning in place Objective Last 24 Hour Vital Signs Date Time Temp Pulse Resp B/P (MAP) Pulse Ox O2 Delivery O2 Flow Rate FiO2 08/02/18 12:19 86 16 100 Nasal Cannula 2.0 28 08/02/18 12:09 28 08/02/18 12:09 87 20 99 Nasal Cannula 2.0 28 08/02/18 12:00 98.1 76 19 138/75 (96) 95 08/02/18 09:00 Room Air 08/02/18 08:59 121/82 08/02/18 08:54 79 121/82 08/02/18 08:15 84 16 100 Nasal Cannula 2.0 28 08/02/18 08:09 Nasal Cannula 2.0 28 08/02/18 08:09 28 08/02/18 08:09 84 20 97 Nasal Cannula 2.0 28 08/02/18 08:09 84 20 Nasal Cannula 2.0 28 08/02/18 08:09 98 Nasal Cannula 2.0 28 08/02/18 08:00 98.9 79 19 121/82 (95) 96 08/02/18 04:00 80 18 125/84 (98) 96 08/02/18 00:44 87 16 100 Nasal Cannula 2.0 28 08/02/18 00:32 28 08/02/18 00:32 86 20 97 Nasal Cannula 2.0 28 08/02/18 00:00 85 20 130/86 (101) 98 08/01/18 21:00 Room Air 08/01/18 20:42 84 142/79 08/01/18 20:27 84 16 100 Nasal Cannula 2.0 28 08/01/18 20:11 87 20 Nasal Cannula 2.0 28 08/01/18 20:11 87 20 98 Nasal Cannula 2.0 28 08/01/18 20:11 28 08/01/18 20:00 97.7 85 20 133/79 (97) 98 08/01/18 18:43 98.2 08/01/18 18:10 142/79 08/01/18 17:01 86 16 100 Nasal Cannula 2.0 28 08/01/18 16:54 88 20 100 Nasal Cannula 08/01/18 16:54 Nasal Cannula 2.0 28 08/01/18 16:54 28 08/01/18 16:54 100 Nasal Cannula 2.0 28 08/01/18 16:00 98.2 86 18 142/79 (100) 99 08/01/18 15:57 Room Air Intake and Output 08/01/18 08/02/18 19:00 07:00 Intake Total 350 ml Output Total 3000 ml Balance -3000 ml 350 ml Intake Oral 350 ml Hemodialysis UF 3000 ml # Voids 4 Objective HEAD AND NECK: No JVD. LUNGS: Clear CARDIOVASCULAR: Regular S1 and S2 with no gallop or murmur. ABDOMEN: Soft. EXTREMITIES: 1 plus pitting edema. German Gray MD Aug 02, 2018 15:04
--- NOTE | 2018-08-02 16:43 | Pulmonology Progress Note ---
Assessment/Plan Assessment/Plan Pulmonary Progress Note Assessment/Plan Problems: (1) Acute exacerbation of CHF (congestive heart failure) (2) Hypertensive cardiomegaly with heart failure (3) ACS (acute coronary syndrome) (4) Cocaine abuse (5) ARF (acute renal failure) (6) DDD (degenerative disc disease) (7) Epistaxis (8) Hypercapnic respiratory failure TREATMENT PLAN: -BiPAP 12/5 qHS and PRN - DECLINES -Titrate FiO2 -PRN DUOnebs -HD per renal with UF as able -Control BP -F/U cards and renal recs -F/U heme recs -F/U GI recs ---> plan for outpatient EGD/colo -DVT Px: hep SQ -Pain control/supportive care - minimize narcotics/sedatives -F/U pain management recs -Appreciate psych eval, has capacity, F/U recs -SW assistance in placement Subjective Allergies: Coded Allergies: No Known Allergies (Unverified , 07/08/18) Subjective ROHINI AFVSS, stable O2 needs Feels the same, no sig SOB, no CP, no F/C Objective Vital Signs Noted General Appearance: WD/WN, no acute distress HEENT: normocephalic, atraumatic, anicteric, mucous membranes moist Respiratory/Chest: chest wall non-tender, lungs clear, normal breath sounds, no respiratory distress Cardiovascular: normal peripheral pulses, normal rate, regular rhythm Abdomen: normal bowel sounds, soft, non tender, no organomegaly, non distended , no mass Extremities: no cyanosis, no clubbing, no edema Laboratory Tests 07/31/18 06:24: White Blood Count 8.1, Red Blood Count 3.13L, Hemoglobin 9.7L, Hematocrit 31.4L , Mean Corpuscular Volume 100H, Mean Corpuscular Hemoglobin 30.9, Mean Corpuscular Hemoglobin Concent 30.8L, Red Cell Distribution Width 14.6, Platelet Count 213, Mean Platelet Volume 6.5, Neutrophils (%) (Auto) 63.8, Lymphocytes (%) (Auto) 18.1L, Monocytes (%) (Auto) 11.2H, Eosinophils (%) (Auto ) 5.8H, Basophils (%) (Auto) 1.2, Sodium Level 138, Potassium Level 4.5, Chloride Level 101, Carbon Dioxide Level 30, Anion Gap 8, Blood Urea Nitrogen 33H, Creatinine 5.2H, Estimat Glomerular Filtration Rate 13.9, Glucose Level 90 , Calcium Level 9.0, Phosphorus Level 3.0, Magnesium Level 1.6L Current Medications Medications (Trade) Dose Ordered Sig/Harish Route PRN Reason Start Time Stop Time Status Last Admin Dose Admin Acetaminophen (Tylenol) 650 mg Q4H PRN ORAL Mild Pain/Temp > 100.5 07/26/18 22:00 08/25/18 21:59 07/27/18 02:11 Acetaminophen/ Hydrocodone Bitart (Gail 10/325) 1 tab Q4H PRN ORAL SEVERE Pain 07/27/18 17:51 08/03/18 17:50 07/31/18 04:11 Albuterol/ Ipratropium (Albuterol/ Ipratropium) 3 ml Q4H PRN HHN Shortness of Breath 07/26/18 22:00 07/31/18 21:59 07/30/18 05:53 Aspirin (ASA) 81 mg DAILY ORAL 07/27/18 09:00 08/08/18 08:59 07/31/18 08:36 Chlorhexidine Gluconate (Laurel-Hex 2%) 1 applic DAILY@2000 TOPIC 07/27/18 20:00 08/25/18 19:59 07/30/18 21:36 Clonidine HCl (Catapres Tab) 0.1 mg Q4H PRN ORAL bp over 165 syst 07/26/18 22:00 08/25/18 21:59 Dextrose (Dextrose 50%) 25 ml Q30M PRN IV Hypoglycemia 07/26/18 22:00 08/07/18 16:29 Dextrose (Dextrose 50%) 50 ml Q30M PRN IV Hypoglycemia 07/26/18 22:00 08/07/18 16:29 Diltiazem HCl (Cardizem CD) 240 mg DAILY ORAL 07/27/18 09:00 08/25/18 08:59 07/31/18 08:35 Diphenhydramine HCl (Benadryl) 25 mg Q6H PRN ORAL Itching/Pruritis 07/26/18 22:30 08/07/18 16:29 07/30/18 21:44 Docusate Sodium (Colace) 100 mg THREE TIMES A DAY ORAL 07/27/18 09:00 08/20/18 17:59 07/31/18 08:35 Epoetin [place] (Procrit (for ESRD on dialysis)) 8,000 units FRI-FRI-FRI SUBQ 07/29/18 21:00 08/28/18 20:59 07/29/18 21:00 Gabapentin (Neurontin) 300 mg THREE TIMES A DAY ORAL 07/27/18 09:00 08/17/18 17:59 07/31/18 08:35 Heparin Sodium (Porcine) (Heparin 5000 units/ml) 5,000 units EVERY 12 HOURS SUBQ 07/27/18 09:00 08/14/18 21:59 07/31/18 08:37 Isosorbide Mononitrate (Imdur) 60 mg DAILY ORAL 07/27/18 09:00 08/11/18 08:59 07/31/18 08:36 Lisinopril (Prinivil) 20 mg BID ORAL 07/27/18 09:00 08/19/18 08:59 07/31/18 08:36 Methocarbamol (Robaxin) 500 mg Q8H PRN ORAL muscle spasm 07/29/18 09:15 08/28/18 09:14 07/30/18 17:13 Metoprolol Tartrate (Lopressor) 100 mg Q12HR ORAL 07/27/18 09:00 08/22/18 20:59 07/31/18 08:35 Pantoprazole (Protonix) 40 mg DAILY ORAL 07/27/18 09:00 08/10/18 21:59 07/31/18 08:35 Polyethylene Glycol (Miralax) 17 gm BEDTIME ORAL 07/27/18 21:00 08/20/18 20:59 07/29/18 21:01 Sevelamer Carbonate (Renvela) 800 mg THREE TIMES A DAY ORAL 07/27/18 09:00 08/08/18 17:59 07/31/18 08:36 Tamsulosin HCl (Flomax) 0.4 mg QHS ORAL 07/27/18 21:00 08/09/18 12:52 07/30/18 21:36 Subjective ROS Limited/Unobtainable: No Allergies: Coded Allergies: No Known Allergies (Unverified , 07/08/18) Objective Last 24 Hour Vital Signs Date Time Temp Pulse Resp B/P (MAP) Pulse Ox O2 Delivery O2 Flow Rate FiO2 08/02/18 12:19 86 16 100 Nasal Cannula 2.0 28 08/02/18 12:09 28 08/02/18 12:09 87 20 99 Nasal Cannula 2.0 28 08/02/18 12:00 98.1 76 19 138/75 (96) 95 08/02/18 09:00 Room Air 08/02/18 08:59 121/82 08/02/18 08:54 79 121/82 08/02/18 08:15 84 16 100 Nasal Cannula 2.0 28 08/02/18 08:09 Nasal Cannula 2.0 28 08/02/18 08:09 28 08/02/18 08:09 84 20 97 Nasal Cannula 2.0 28 08/02/18 08:09 84 20 Nasal Cannula 2.0 28 08/02/18 08:09 98 Nasal Cannula 2.0 28 08/02/18 08:00 98.9 79 19 121/82 (95) 96 08/02/18 04:00 80 18 125/84 (98) 96 08/02/18 00:44 87 16 100 Nasal Cannula 2.0 28 08/02/18 00:32 28 08/02/18 00:32 86 20 97 Nasal Cannula 2.0 28 08/02/18 00:00 85 20 130/86 (101) 98 08/01/18 21:00 Room Air 08/01/18 20:42 84 142/79 08/01/18 20:27 84 16 100 Nasal Cannula 2.0 28 08/01/18 20:11 87 20 Nasal Cannula 2.0 28 08/01/18 20:11 87 20 98 Nasal Cannula 2.0 28 08/01/18 20:11 28 08/01/18 20:00 97.7 85 20 133/79 (97) 98 08/01/18 18:43 98.2 08/01/18 18:10 142/79 08/01/18 17:01 86 16 100 Nasal Cannula 2.0 28 08/01/18 16:54 88 20 100 Nasal Cannula 08/01/18 16:54 Nasal Cannula 2.0 28 08/01/18 16:54 28 08/01/18 16:54 100 Nasal Cannula 2.0 28 Intake and Output 08/01/18 08/02/18 18:59 06:59 Intake Total 350 ml Output Total 3000 ml Balance -3000 ml 350 ml Intake Oral 350 ml Hemodialysis UF 3000 ml # Voids 4 Current Medications Medications (Trade) Dose Ordered Sig/Harish Route PRN Reason Start Time Stop Time Status Last Admin Dose Admin Acetaminophen (Tylenol) 650 mg Q4H PRN ORAL Mild Pain/Temp > 100.5 07/26/18 22:00 08/25/18 21:59 07/27/18 02:11 Acetaminophen/ Hydrocodone Bitart (Gail 10/325) 1 tab Q4H PRN ORAL SEVERE Pain 07/27/18 17:51 08/03/18 17:50 08/02/18 13:07 Albuterol/ Ipratropium (Albuterol/ Ipratropium) 3 ml Q4H PRN HHN Shortness of Breath 08/01/18 16:30 08/06/18 16:29 Albuterol/ Ipratropium (Albuterol/ Ipratropium) 3 ml Q6HRT HHN 08/01/18 16:30 08/06/18 16:29 08/02/18 12:09 Aspirin (ASA) 81 mg DAILY ORAL 07/27/18 09:00 08/08/18 08:59 08/02/18 08:51 Chlorhexidine Gluconate (Laurel-Hex 2%) 1 applic DAILY@2000 TOPIC 07/27/18 20:00 08/25/18 19:59 08/01/18 20:42 Clonidine HCl (Catapres Tab) 0.1 mg Q4H PRN ORAL bp over 165 syst 07/26/18 22:00 08/25/18 21:59 07/31/18 12:59 Dextrose (Dextrose 50%) 25 ml Q30M PRN IV Hypoglycemia 07/26/18 22:00 08/07/18 16:29 Dextrose (Dextrose 50%) 50 ml Q30M PRN IV Hypoglycemia 07/26/18 22:00 08/07/18 16:29 Diltiazem HCl (Cardizem CD) 360 mg DAILY ORAL 08/01/18 09:00 08/25/18 08:59 08/01/18 12:14 Diphenhydramine HCl (Benadryl) 25 mg Q6H PRN ORAL Itching/Pruritis 07/26/18 22:30 08/07/18 16:29 08/02/18 01:25 Docusate Sodium (Colace) 100 mg THREE TIMES A DAY ORAL 07/27/18 09:00 08/20/18 17:59 08/02/18 13:08 Epoetin Juan Pablo (Procrit (for ESRD on dialysis)) 8,000 units FRI-FRI-FRI SUBQ 07/29/18 21:00 08/28/18 20:59 07/31/18 20:41 Gabapentin (Neurontin) 300 mg THREE TIMES A DAY ORAL 07/27/18 09:00 08/17/18 17:59 08/02/18 13:08 Heparin Sodium (Porcine) (Heparin 5000 units/ml) 5,000 units EVERY 12 HOURS SUBQ 07/27/18 09:00 08/14/18 21:59 08/02/18 08:56 Isosorbide Mononitrate (Imdur) 60 mg DAILY ORAL 07/27/18 09:00 08/11/18 08:59 08/02/18 08:59 Lisinopril (Prinivil) 20 mg BID ORAL 07/27/18 09:00 08/19/18 08:59 08/01/18 18:10 Magnesium Oxide (Mag-Ox 400mg) 400 mg THREE TIMES A DAY ORAL 08/02/18 13:00 09/01/18 12:59 08/02/18 13:08 Methocarbamol (Robaxin) 500 mg Q8H PRN ORAL muscle spasm 07/29/18 09:15 08/28/18 09:14 08/02/18 08:55 Metoprolol Tartrate (Lopressor) 100 mg Q12HR ORAL 07/27/18 09:00 08/22/18 20:59 08/02/18 08:54 Pantoprazole (Protonix) 40 mg DAILY ORAL 07/27/18 09:00 08/10/18 21:59 08/02/18 08:55 Polyethylene Glycol (Miralax) 17 gm BEDTIME ORAL 07/27/18 21:00 08/20/18 20:59 07/29/18 21:01 Sevelamer Carbonate (Renvela) 800 mg THREE TIMES A DAY ORAL 07/27/18 09:00 08/08/18 17:59 08/02/18 13:08 Tamsulosin HCl (Flomax) 0.4 mg QHS ORAL 07/27/18 21:00 08/09/18 12:52 08/01/18 20:42 Pablito Mac MD Aug 02, 2018 16:43
[2018-08-02] MEDS: Miralax 17gm pkt ORAL SCH (20:08)
[2018-08-02] MEDS: Dyna-Hex 2% Top Sol 2oz TOPIC SCH (20:17)
[2018-08-02] MEDS: Tamsulosin 0.4mg cap ORAL SCH (20:18)
[2018-08-03] MEDS: Albuterol/Ipratropium 3ml neb HHN SCH ×4 (00:50→20:24)
[2018-08-03 04:07] VITALS: BP 139/91
[2018-08-03 08:00] VITALS: BP 157/91
[2018-08-03] MEDS: Aspirin Baby 81mg ORAL SCH (08:27)
[2018-08-03] MEDS: dilTIAZem HCl CD 180mg cap ORAL SCH (08:28)
[2018-08-03] MEDS: Docusate 100mg cap ORAL SCH ×3 (08:29→17:01)
[2018-08-03] MEDS: HYDROcodone/Acetamin 10/325 tab ORAL PRN ×2 (08:29→17:01)
[2018-08-03] MEDS: Magnesium Oxide 400mg tab ORAL SCH ×3 (08:30→17:01)
[2018-08-03] MEDS: Methocarbamol 500mg tab ORAL PRN ×2 (08:30→17:01)
[2018-08-03] MEDS: Lisinopril 20mg tab ORAL SCH ×2 (08:30→17:02)
[2018-08-03] MEDS: Heparin 5000 units/ml inj SUBQ SCH ×2 (08:31→21:28)
[2018-08-03] MEDS: Imdur 30mg tab ORAL SCH (08:40)
--- NOTE | 2018-08-03 10:48 | General Progress Note ---
Assessment/Plan Problem List: (1) Lumbar spondylosis ICD Codes: M47.816 - Spondylosis without myelopathy or radiculopathy, lumbar region SNOMED: 741678084 (2) Cocaine abuse ICD Codes: F14.10 - Cocaine abuse, uncomplicated SNOMED: 71089189 (3) DDD (degenerative disc disease) SNOMED: 59616467 Status: doing well, stable Assessment/Plan we will continue [place]. Subjective Constitutional: Denies: no symptoms, chills, diaphoresis, fever, malaise, weakness, other Cardiovascular: Denies: no symptoms, chest pain, edema, irregular heart rate, lightheadedness, palpitations, syncope, other Respiratory: Denies: no symptoms, cough, orthopnea, shortness of breath, SOB with excertion, SOB at rest, sputum, stridor, wheezing, other Gastrointestinal/Abdominal: Denies: no symptoms, abdomen distended, abdominal pain, black stools, tarry stools, blood in stool, constipated, diarrhea, difficulty swallowing, nausea, poor appetite, poor fluid intake, rectal bleeding , vomiting, other Neurologic/Psychiatric: Denies: no symptoms, anxiety, depressed, emotional problems, headache, numbness, paresthesia, pre-existing deficit, seizure, tingling, tremors, weakness, other Allergies: Coded Allergies: No Known Allergies (Unverified , 07/08/18) Subjective Pt is stable on [place] and Robaxin. No complains. Objective Last 24 Hour Vital Signs Date Time Temp Pulse Resp B/P (MAP) Pulse Ox O2 Delivery O2 Flow Rate FiO2 08/03/18 09:00 Room Air 08/03/18 08:40 139/91 08/03/18 08:30 139/91 08/03/18 08:28 94 139/91 08/03/18 08:28 94 139/91 08/03/18 08:14 94 16 99 Nasal Cannula 2.0 28 08/03/18 08:08 Nasal Cannula 2.0 28 08/03/18 08:08 98 Nasal Cannula 2.0 28 08/03/18 08:07 93 20 97 Nasal Cannula 2.0 28 08/03/18 08:07 90 20 Nasal Cannula 2.0 28 08/03/18 08:00 98.8 94 17 157/91 (113) 98 08/03/18 04:07 98.6 91 18 139/91 (107) 100 08/03/18 00:57 92 16 100 Nasal Cannula 2.0 28 08/03/18 00:50 85 20 98 Nasal Cannula 2.0 28 08/02/18 23:49 98.2 95 18 136/93 (107) 97 08/02/18 22:16 Room Air 08/02/18 20:47 98.5 08/02/18 20:18 92 150/82 08/02/18 20:12 97 16 99 Nasal Cannula 2.0 28 08/02/18 20:04 Nasal Cannula 2.0 28 08/02/18 20:03 97 Nasal Cannula 2.0 28 08/02/18 20:03 92 20 Nasal Cannula 2.0 28 08/02/18 20:00 98.6 92 18 150/82 (104) 94 08/02/18 20:00 92 20 97 Nasal Cannula 2.0 28 08/02/18 17:46 141/91 08/02/18 16:00 98.5 81 17 126/89 (101) 96 08/02/18 12:19 86 16 100 Nasal Cannula 2.0 28 08/02/18 12:09 28 08/02/18 12:09 87 20 99 Nasal Cannula 2.0 28 08/02/18 12:00 98.1 76 19 138/75 (96) 95 Intake and Output 08/02/18 08/03/18 19:00 07:00 Intake Total 850 ml 650 ml Output Total 150 ml Balance 850 ml 500 ml Intake Oral 650 ml Other 850 ml Output Urine Total 150 ml # Bowel Movements 1 Height (Feet): 5 Height (Inches): 11.00 Weight (Pounds): 196 General Appearance: WD/WN Neck: non-tender Cardiovascular: normal rate Respiratory/Chest: lungs clear Abdomen: soft Edema: 2+ Arm (L), 2+ Arm (R); no edema noted Leg (L), no edema noted Leg (R), no edema noted Pedal (L), no edema noted Pedal (R), no edema noted Generalized Neurologic: alert, oriented x 3 Jazzy Rosado MD Aug 03, 2018 10:48
--- NOTE | 2018-08-03 10:57 | GI Progress Note ---
Assessment/Plan Problems: (1) Macrocytic anemia ICD Codes: D53.9 - Nutritional anemia, unspecified SNOMED: 71402381 (2) Iron deficiency ICD Codes: E61.1 - Iron deficiency SNOMED: 30785977 (3) Constipation ICD Codes: K59.00 - Constipation, unspecified SNOMED: 10417013 (4) Cocaine abuse ICD Codes: F14.10 - Cocaine abuse, uncomplicated SNOMED: 40970913 (5) Pancreatitis ICD Codes: K85.90 - Acute pancreatitis without necrosis or infection, unspecified SNOMED: 56142040 Status: stable Status Narrative Discussed with Dr. Shea Assessment/Plan Pancreatitis now resolved Hepatitis panel negative history of hernia repair Stable H&H OB stool r/o GI bleed not collected monitor H&H, prn transfusions bowel regime ppi venofer renal diet fu labs outpatient GI procedures The patient was seen and examined at bedside and all new and available data was reviewed in the patients chart. I agree with the above findings, impression and plan. (Patient seen earlier today. Signature stamp does not reflect patient encounter time.). - Nikolas Shea MD Subjective Subjective had BM had complaint of lower abdominal pain, believes there is problem with his hernia mesh Denies any pain at this time Objective Last 24 Hour Vital Signs Date Time Temp Pulse Resp B/P (MAP) Pulse Ox O2 Delivery O2 Flow Rate FiO2 08/03/18 09:00 Room Air 08/03/18 08:40 139/91 08/03/18 08:30 139/91 08/03/18 08:28 94 139/91 08/03/18 08:28 94 139/91 08/03/18 08:14 94 16 99 Nasal Cannula 2.0 28 08/03/18 08:08 Nasal Cannula 2.0 28 08/03/18 08:08 98 Nasal Cannula 2.0 28 08/03/18 08:07 93 20 97 Nasal Cannula 2.0 28 08/03/18 08:07 90 20 Nasal Cannula 2.0 28 08/03/18 08:00 98.8 94 17 157/91 (113) 98 08/03/18 04:07 98.6 91 18 139/91 (107) 100 08/03/18 00:57 92 16 100 Nasal Cannula 2.0 28 08/03/18 00:50 85 20 98 Nasal Cannula 2.0 28 08/02/18 23:49 98.2 95 18 136/93 (107) 97 08/02/18 22:16 Room Air 08/02/18 20:47 98.5 08/02/18 20:18 92 150/82 08/02/18 20:12 97 16 99 Nasal Cannula 2.0 28 08/02/18 20:04 Nasal Cannula 2.0 28 08/02/18 20:03 97 Nasal Cannula 2.0 28 08/02/18 20:03 92 20 Nasal Cannula 2.0 28 08/02/18 20:00 98.6 92 18 150/82 (104) 94 08/02/18 20:00 92 20 97 Nasal Cannula 2.0 28 08/02/18 17:46 141/91 08/02/18 16:00 98.5 81 17 126/89 (101) 96 08/02/18 12:19 86 16 100 Nasal Cannula 2.0 28 08/02/18 12:09 28 08/02/18 12:09 87 20 99 Nasal Cannula 2.0 28 08/02/18 12:00 98.1 76 19 138/75 (96) 95 Intake and Output 08/02/18 08/03/18 19:00 07:00 Intake Total 850 ml 650 ml Output Total 150 ml Balance 850 ml 500 ml Intake Oral 650 ml Other 850 ml Output Urine Total 150 ml # Bowel Movements 1 Height (Feet): 5 Height (Inches): 11.00 Weight (Pounds): 196 General Appearance: WD/WN, no apparent distress, alert Cardiovascular: normal rate Respiratory/Chest: normal breath sounds, no respiratory distress Abdominal Exam: normal bowel sounds, non tender, soft Extremities: normal range of motion, non-tender Daja Murdock KNOTTER HAND Aug 03, 2018 10:57
[2018-08-03] MEDS ORDERED: Sennosides 8.6mg tab ORAL PRN (11:00)
[2018-08-03] MEDS ORDERED: Sennosides 8.6mg tab ORAL SCH (11:00)
--- NOTE | 2018-08-03 11:13 | Nephrology Progress Note ---
Assessment/Plan Problem List: (1) Renal failure (ARF), acute on chronic (2) Cocaine abuse (3) Acute exacerbation of CHF (congestive heart failure) (4) Hypertensive cardiomegaly with heart failure (5) Volume overload Assessment Acute on Chronic renal failure Anemia Elevated troponin Hypertensive renal and heart disease Cocaine abuse Cardiomyopathy Plan next HD 08/04 readjust bp meds Dc planning increase Neurontin transfuse one unit 07/[address] Moura 2D Echo 55% ej fx BRIDGETT kidneys * Mild fullness of the bilateral renal collecting systems without radiographically appreciable stone and observed bilateral ureteral jets. Findings may be related to mild bladder distention. Consider repeat exam after bladder decompression. monitor renal parameters Avoid nephrotoxics renal diet flomax Subjective ROS Limited/Unobtainable: No Constitutional: Reports: malaise Objective Objective Last 24 Hour Vital Signs Date Time Temp Pulse Resp B/P (MAP) Pulse Ox O2 Delivery O2 Flow Rate FiO2 08/03/18 09:00 Room Air 08/03/18 08:40 139/91 08/03/18 08:30 139/91 08/03/18 08:28 94 139/91 08/03/18 08:28 94 139/91 08/03/18 08:14 94 16 99 Nasal Cannula 2.0 28 08/03/18 08:08 Nasal Cannula 2.0 28 08/03/18 08:08 98 Nasal Cannula 2.0 28 08/03/18 08:07 93 20 97 Nasal Cannula 2.0 28 08/03/18 08:07 90 20 Nasal Cannula 2.0 28 08/03/18 08:00 98.8 94 17 157/91 (113) 98 08/03/18 04:07 98.6 91 18 139/91 (107) 100 08/03/18 00:57 92 16 100 Nasal Cannula 2.0 28 08/03/18 00:50 85 20 98 Nasal Cannula 2.0 28 08/02/18 23:49 98.2 95 18 136/93 (107) 97 08/02/18 22:16 Room Air 08/02/18 20:47 98.5 08/02/18 20:18 92 150/82 08/02/18 20:12 97 16 99 Nasal Cannula 2.0 28 08/02/18 20:04 Nasal Cannula 2.0 28 08/02/18 20:03 97 Nasal Cannula 2.0 28 08/02/18 20:03 92 20 Nasal Cannula 2.0 28 08/02/18 20:00 98.6 92 18 150/82 (104) 94 08/02/18 20:00 92 20 97 Nasal Cannula 2.0 28 08/02/18 17:46 141/91 08/02/18 16:00 98.5 81 17 126/89 (101) 96 08/02/18 12:19 86 16 100 Nasal Cannula 2.0 28 08/02/18 12:09 28 08/02/18 12:09 87 20 99 Nasal Cannula 2.0 28 08/02/18 12:00 98.1 76 19 138/75 (96) 95 Intake and Output 08/02/18 08/03/18 19:00 07:00 Intake Total 850 ml 650 ml Output Total 150 ml Balance 850 ml 500 ml Intake Oral 650 ml Other 850 ml Output Urine Total 150 ml # Bowel Movements 1 Height (Feet): 5 Height (Inches): 11.00 Weight (Pounds): 196 General Appearance: no apparent distress Objective no change Richar Cm MD Aug 03, 2018 11:13
[2018-08-03 12:00] VITALS: BP 131/78
--- NOTE | 2018-08-03 14:59 | Cardiac Electrophysiology PN ---
Assessment/Plan Assessment/Plan 1. Troponin leak in the setting of cocaine use and renal failure. Levels are flat Avoid beta-pablo in view of active cocaine use. On aspirin and Lipitor. EF 45%. No CP 2. Hypertension. On Cardizem 360 daily, Metoprolol 100 bid, Imdur 60, Lisinopril 20 bid and HD 3. End-stage renal disease, on HD by Dr. Cm 4. Substance use with cocaine. Avoid [facility] beta-blockers. 5. Recent pneumonia. 6. Congestive heart failure with EF 45% 7. Anemia s/p PRBCs . 8. Placement pending DW RN Subjective Subjective No CP or SOB. Awaiting HD Objective Last 24 Hour Vital Signs Date Time Temp Pulse Resp B/P (MAP) Pulse Ox O2 Delivery O2 Flow Rate FiO2 08/03/18 12:59 95 18 99 Room Air 21 08/03/18 12:50 75 18 92 Room Air 21 08/03/18 12:00 97.5 84 16 131/78 (95) 95 08/03/18 09:00 Room Air 08/03/18 08:40 139/91 08/03/18 08:30 139/91 08/03/18 08:28 94 139/91 08/03/18 08:28 94 139/91 08/03/18 08:14 94 16 99 Nasal Cannula 2.0 28 08/03/18 08:08 Nasal Cannula 2.0 28 08/03/18 08:08 98 Nasal Cannula 2.0 28 08/03/18 08:07 93 20 97 Nasal Cannula 2.0 28 08/03/18 08:07 90 20 Nasal Cannula 2.0 28 08/03/18 08:00 98.8 94 17 157/91 (113) 98 08/03/18 04:07 98.6 91 18 139/91 (107) 100 08/03/18 00:57 92 16 100 Nasal Cannula 2.0 28 08/03/18 00:50 85 20 98 Nasal Cannula 2.0 28 08/02/18 23:49 98.2 95 18 136/93 (107) 97 08/02/18 22:16 Room Air 08/02/18 20:47 98.5 08/02/18 20:18 92 150/82 08/02/18 20:12 97 16 99 Nasal Cannula 2.0 28 08/02/18 20:04 Nasal Cannula 2.0 28 08/02/18 20:03 97 Nasal Cannula 2.0 28 08/02/18 20:03 92 20 Nasal Cannula 2.0 28 08/02/18 20:00 98.6 92 18 150/82 (104) 94 08/02/18 20:00 92 20 97 Nasal Cannula 2.0 28 08/02/18 17:46 141/91 08/02/18 16:00 98.5 81 17 126/89 (101) 96 Intake and Output 08/02/18 08/03/18 19:00 07:00 Intake Total 850 ml 650 ml Output Total 150 ml Balance 850 ml 500 ml Intake Oral 650 ml Other 850 ml Output Urine Total 150 ml # Bowel Movements 1 Objective HEAD AND NECK: No JVD. LUNGS: Clear CARDIOVASCULAR: Regular S1 and S2 with no gallop or murmur. ABDOMEN: Soft. EXTREMITIES: 1 plus pitting edema. German Gray MD Aug 03, 2018 14:59
--- NOTE | 2018-08-03 15:40 | Pulmonology Progress Note ---
Assessment/Plan Assessment/Plan Pulmonary Progress Note Assessment/Plan Problems: (1) Acute exacerbation of CHF (congestive heart failure) (2) Hypertensive cardiomegaly with heart failure (3) ACS (acute coronary syndrome) (4) Cocaine abuse (5) ARF (acute renal failure) (6) DDD (degenerative disc disease) (7) Epistaxis (8) Hypercapnic respiratory failure TREATMENT PLAN: -BiPAP 12/5 qHS and PRN - DECLINES -Titrate FiO2 -PRN DUOnebs -HD per renal with UF as able -Control BP -F/U cards and renal recs -F/U heme recs -F/U GI recs ---> plan for outpatient EGD/colo -DVT Px: hep SQ -Pain control/supportive care - minimize narcotics/sedatives -F/U pain management recs -Appreciate psych eval, has capacity, F/U recs -SW assistance in placement Subjective Allergies: Coded Allergies: No Known Allergies (Unverified , 07/08/18) Subjective ROHINI AFVSS, stable O2 needs Feels the same, no sig SOB, no CP, no F/C Objective Vital Signs Noted General Appearance: WD/WN, no acute distress HEENT: normocephalic, atraumatic, anicteric, mucous membranes moist Respiratory/Chest: chest wall non-tender, lungs clear, normal breath sounds, no respiratory distress Cardiovascular: normal peripheral pulses, normal rate, regular rhythm Abdomen: normal bowel sounds, soft, non tender, no organomegaly, non distended , no mass Extremities: no cyanosis, no clubbing, no edema Laboratory Tests 07/31/18 06:24: White Blood Count 8.1, Red Blood Count 3.13L, Hemoglobin 9.7L, Hematocrit 31.4L , Mean Corpuscular Volume 100H, Mean Corpuscular Hemoglobin 30.9, Mean Corpuscular Hemoglobin Concent 30.8L, Red Cell Distribution Width 14.6, Platelet Count 213, Mean Platelet Volume 6.5, Neutrophils (%) (Auto) 63.8, Lymphocytes (%) (Auto) 18.1L, Monocytes (%) (Auto) 11.2H, Eosinophils (%) (Auto ) 5.8H, Basophils (%) (Auto) 1.2, Sodium Level 138, Potassium Level 4.5, Chloride Level 101, Carbon Dioxide Level 30, Anion Gap 8, Blood Urea Nitrogen 33H, Creatinine 5.2H, Estimat Glomerular Filtration Rate 13.9, Glucose Level 90 , Calcium Level 9.0, Phosphorus Level 3.0, Magnesium Level 1.6L Current Medications Medications (Trade) Dose Ordered Sig/Harish Route PRN Reason Start Time Stop Time Status Last Admin Dose Admin Acetaminophen (Tylenol) 650 mg Q4H PRN ORAL Mild Pain/Temp > 100.5 07/26/18 22:00 08/25/18 21:59 07/27/18 02:11 Acetaminophen/ Hydrocodone Bitart ([place] 10/325) 1 tab Q4H PRN ORAL SEVERE Pain 07/27/18 17:51 08/03/18 17:50 07/31/18 04:11 Albuterol/ Ipratropium (Albuterol/ Ipratropium) 3 ml Q4H PRN HHN Shortness of Breath 07/26/18 22:00 07/31/18 21:59 07/30/18 05:53 Aspirin (ASA) 81 mg DAILY ORAL 07/27/18 09:00 08/08/18 08:59 07/31/18 08:36 Chlorhexidine Gluconate (Laurel-Hex 2%) 1 applic DAILY@2000 TOPIC 07/27/18 20:00 08/25/18 19:59 07/30/18 21:36 Clonidine HCl (Catapres Tab) 0.1 mg Q4H PRN ORAL bp over 165 syst 07/26/18 22:00 08/25/18 21:59 Dextrose (Dextrose 50%) 25 ml Q30M PRN IV Hypoglycemia 07/26/18 22:00 08/07/18 16:29 Dextrose (Dextrose 50%) 50 ml Q30M PRN IV Hypoglycemia 07/26/18 22:00 08/07/18 16:29 Diltiazem HCl (Cardizem CD) 240 mg DAILY ORAL 07/27/18 09:00 08/25/18 08:59 07/31/18 08:35 Diphenhydramine HCl (Benadryl) 25 mg Q6H PRN ORAL Itching/Pruritis 07/26/18 22:30 08/07/18 16:29 07/30/18 21:44 Docusate Sodium (Colace) 100 mg THREE TIMES A DAY ORAL 07/27/18 09:00 08/20/18 17:59 07/31/18 08:35 Epoetin Juan Pablo (Procrit (for ESRD on dialysis)) 8,000 units FRI-FRI-FRI SUBQ 07/29/18 21:00 08/28/18 20:59 07/29/18 21:00 Gabapentin (Neurontin) 300 mg THREE TIMES A DAY ORAL 07/27/18 09:00 08/17/18 17:59 07/31/18 08:35 Heparin Sodium (Porcine) (Heparin 5000 units/ml) 5,000 units EVERY 12 HOURS SUBQ 07/27/18 09:00 08/14/18 21:59 07/31/18 08:37 Isosorbide Mononitrate (Imdur) 60 mg DAILY ORAL 07/27/18 09:00 08/11/18 08:59 07/31/18 08:36 Lisinopril (Prinivil) 20 mg BID ORAL 07/27/18 09:00 08/19/18 08:59 07/31/18 08:36 Methocarbamol (Robaxin) 500 mg Q8H PRN ORAL muscle spasm 07/29/18 09:15 08/28/18 09:14 07/30/18 17:13 Metoprolol Tartrate (Lopressor) 100 mg Q12HR ORAL 07/27/18 09:00 08/22/18 20:59 07/31/18 08:35 Pantoprazole (Protonix) 40 mg DAILY ORAL 07/27/18 09:00 08/10/18 21:59 07/31/18 08:35 Polyethylene Glycol (Miralax) 17 gm BEDTIME ORAL 07/27/18 21:00 08/20/18 20:59 07/29/18 21:01 Sevelamer Carbonate (Renvela) 800 mg THREE TIMES A DAY ORAL 07/27/18 09:00 08/08/18 17:59 07/31/18 08:36 Tamsulosin HCl (Flomax) 0.4 mg QHS ORAL 07/27/18 21:00 08/09/18 12:52 07/30/18 21:36 Subjective ROS Limited/Unobtainable: No Allergies: Coded Allergies: No Known Allergies (Unverified , 07/08/18) Objective Last 24 Hour Vital Signs Date Time Temp Pulse Resp B/P (MAP) Pulse Ox O2 Delivery O2 Flow Rate FiO2 08/03/18 12:59 95 18 99 Room Air 21 08/03/18 12:50 75 18 92 Room Air 21 08/03/18 12:00 97.5 84 16 131/78 (95) 95 08/03/18 09:00 Room Air 08/03/18 08:40 139/91 08/03/18 08:30 139/91 08/03/18 08:28 94 139/91 08/03/18 08:28 94 139/91 08/03/18 08:14 94 16 99 Nasal Cannula 2.0 28 08/03/18 08:08 Nasal Cannula 2.0 28 08/03/18 08:08 98 Nasal Cannula 2.0 28 08/03/18 08:07 93 20 97 Nasal Cannula 2.0 28 08/03/18 08:07 90 20 Nasal Cannula 2.0 28 08/03/18 08:00 98.8 94 17 157/91 (113) 98 08/03/18 04:07 98.6 91 18 139/91 (107) 100 08/03/18 00:57 92 16 100 Nasal Cannula 2.0 28 08/03/18 00:50 85 20 98 Nasal Cannula 2.0 28 08/02/18 23:49 98.2 95 18 136/93 (107) 97 08/02/18 22:16 Room Air 08/02/18 20:47 98.5 08/02/18 20:18 92 150/82 08/02/18 20:12 97 16 99 Nasal Cannula 2.0 28 08/02/18 20:04 Nasal Cannula 2.0 28 08/02/18 20:03 97 Nasal Cannula 2.0 28 08/02/18 20:03 92 20 Nasal Cannula 2.0 28 08/02/18 20:00 98.6 92 18 150/82 (104) 94 08/02/18 20:00 92 20 97 Nasal Cannula 2.0 28 08/02/18 17:46 141/91 08/02/18 16:00 98.5 81 17 126/89 (101) 96 Intake and Output 08/02/18 08/03/18 19:00 07:00 Intake Total 850 ml 650 ml Output Total 150 ml Balance 850 ml 500 ml Intake Oral 650 ml Other 850 ml Output Urine Total 150 ml # Bowel Movements 1 Laboratory Tests 08/03/18 15:00: White Blood Count [Pending], Red Blood Count [Pending], Hemoglobin [Pending], Hematocrit [Pending], Mean Corpuscular Volume [Pending], Mean Corpuscular Hemoglobin [Pending], Mean Corpuscular Hemoglobin Concent [Pending], Red Cell Distribution Width [Pending], Platelet Count [Pending], Mean Platelet Volume [ Pending], Neutrophils (%) (Auto) [Pending], Lymphocytes (%) (Auto) [Pending], Monocytes (%) (Auto) [Pending], Eosinophils (%) (Auto) [Pending], Basophils (%) (Auto) [Pending] Current Medications Medications (Trade) Dose Ordered Sig/Harish Route PRN Reason Start Time Stop Time Status Last Admin Dose Admin Acetaminophen (Tylenol) 650 mg Q4H PRN ORAL Mild Pain/Temp > 100.5 07/26/18 22:00 08/25/18 21:59 07/27/18 02:11 Acetaminophen/ Hydrocodone Bitart ([place] 10/325) 1 tab Q4H PRN ORAL SEVERE Pain 07/27/18 17:51 08/03/18 17:50 08/03/18 08:29 Albuterol/ Ipratropium (Albuterol/ Ipratropium) 3 ml Q4H PRN HHN Shortness of Breath 08/01/18 16:30 08/06/18 16:29 Albuterol/ Ipratropium (Albuterol/ Ipratropium) 3 ml Q6HRT HHN 08/01/18 16:30 08/06/18 16:29 08/03/18 12:50 Aspirin (ASA) 81 mg DAILY ORAL 07/27/18 09:00 08/08/18 08:59 08/03/18 08:27 Chlorhexidine Gluconate (Laurel-Hex 2%) 1 applic DAILY@2000 TOPIC 07/27/18 20:00 08/25/18 19:59 08/02/18 20:17 Clonidine HCl (Catapres Tab) 0.1 mg Q4H PRN ORAL bp over 165 syst 07/26/18 22:00 08/25/18 21:59 07/31/18 12:59 Dextrose (Dextrose 50%) 25 ml Q30M PRN IV Hypoglycemia 07/26/18 22:00 08/07/18 16:29 Dextrose (Dextrose 50%) 50 ml Q30M PRN IV Hypoglycemia 07/26/18 22:00 08/07/18 16:29 Diltiazem HCl (Cardizem CD) 360 mg DAILY ORAL 08/01/18 09:00 08/25/18 08:59 08/03/18 08:28 Diphenhydramine HCl (Benadryl) 25 mg Q6H PRN ORAL Itching/Pruritis 07/26/18 22:30 08/07/18 16:29 08/03/18 01:27 Docusate Sodium (Colace) 100 mg THREE TIMES A DAY ORAL 07/27/18 09:00 08/20/18 17:59 08/03/18 12:35 Epoetin Juan Pablo (Procrit (for ESRD on dialysis)) 8,000 units FRI-FRI-FRI SUBQ 07/29/18 21:00 08/28/18 20:59 07/31/18 20:41 Gabapentin (Neurontin) 300 mg THREE TIMES A DAY ORAL 07/27/18 09:00 08/17/18 17:59 08/03/18 12:35 Heparin Sodium (Porcine) (Heparin 5000 units/ml) 5,000 units EVERY 12 HOURS SUBQ 07/27/18 09:00 08/14/18 21:59 08/03/18 08:31 Isosorbide Mononitrate (Imdur) 60 mg DAILY ORAL 07/27/18 09:00 08/11/18 08:59 08/03/18 08:40 Lisinopril (Prinivil) 20 mg BID ORAL 07/27/18 09:00 08/19/18 08:59 08/03/18 08:30 Magnesium Oxide (Mag-Ox 400mg) 400 mg THREE TIMES A DAY ORAL 08/02/18 13:00 09/01/18 12:59 08/03/18 12:35 Methocarbamol (Robaxin) 500 mg Q8H PRN ORAL muscle spasm 07/29/18 09:15 08/28/18 09:14 08/03/18 08:30 Metoprolol Tartrate (Lopressor) 100 mg Q12HR ORAL 07/27/18 09:00 08/22/18 20:59 08/03/18 08:28 Pantoprazole (Protonix) 40 mg DAILY ORAL 07/27/18 09:00 08/10/18 21:59 08/03/18 08:28 Polyethylene Glycol (Miralax) 17 gm BEDTIME ORAL 07/27/18 21:00 08/20/18 20:59 07/29/18 21:01 Sennosides (Senokot) 8.6 mg DAILY PRN ORAL Constipation 08/03/18 11:00 09/02/18 10:59 Sevelamer Carbonate (Renvela) 800 mg THREE TIMES A DAY ORAL 07/27/18 09:00 08/08/18 17:59 08/03/18 12:35 Tamsulosin HCl (Flomax) 0.4 mg QHS ORAL 07/27/18 21:00 08/09/18 12:52 08/02/18 20:18 Pablito Mac MD Aug 03, 2018 15:40
[2018-08-03 15:43] LABS: BASOPHILS % (AUTO) 1.3 % (0.0-2.0); EOSINOPHILS % (AUTO) 13.8 % (0.0-3.0); HEMATOCRIT 31.8 % (42.0-52.0); HEMOGLOBIN 9.6 G/DL (14.2-18.0); LYMPHOCYTES % (AUTO) 12.5 % (20.0-45.0); MEAN CORPUSCULAR VOLUME 101 FL (80-99); MONOCYTES % (AUTO) 14.7 % (1.0-10.0); NEUTROPHILS % (AUTO) 57.7 % (45.0-75.0); PLATELET COUNT 220 K/UL (150-450); RED BLOOD COUNT 3.13 M/UL (4.70-6.10); RED CELL DISTRIBUTION WIDTH 15.2 % (11.6-14.8); WHITE BLOOD COUNT 7.3 K/UL (4.8-10.8)
[2018-08-03 16:00] VITALS: BP 127/81
[2018-08-03 20:00] VITALS: BP 135/87
[2018-08-03] MEDS: Miralax 17gm pkt ORAL SCH (21:00)
[2018-08-03] MEDS: Dyna-Hex 2% Top Sol 2oz TOPIC SCH (21:23)
[2018-08-03] MEDS: Epogen (for ESRD on dialysis) SUBQ SCH (21:23)
[2018-08-03] MEDS: Tamsulosin 0.4mg cap ORAL SCH (21:23)
[2018-08-04 00:45] VITALS: BP 134/83
[2018-08-04] MEDS: Albuterol/Ipratropium 3ml neb HHN SCH ×4 (02:17→19:38)
[2018-08-04 04:00] VITALS: BP_SYST 126; BP_SYST 137; BP_DIAS 78; BP_DIAS 95
[2018-08-04 08:00] VITALS: BP 146/93
[2018-08-04 08:10] LABS: BASOPHILS % (AUTO) 1.2 % (0.0-2.0); EOSINOPHILS % (AUTO) 16.9 % (0.0-3.0); HEMATOCRIT 31.6 % (42.0-52.0); HEMOGLOBIN 9.8 G/DL (14.2-18.0); LYMPHOCYTES % (AUTO) 16.1 % (20.0-45.0); MEAN CORPUSCULAR VOLUME 101 FL (80-99); MONOCYTES % (AUTO) 13.7 % (1.0-10.0); NEUTROPHILS % (AUTO) 52.2 % (45.0-75.0); PLATELET COUNT 248 K/UL (150-450); RED BLOOD COUNT 3.14 M/UL (4.70-6.10); RED CELL DISTRIBUTION WIDTH 15.3 % (11.6-14.8); WHITE BLOOD COUNT 7.2 K/UL (4.8-10.8)
[2018-08-04 08:30] LABS: ANION GAP 10 mmol/L (5-15); BLOOD UREA NITROGEN 48 mg/dL (7-18); CALCIUM 8.9 MG/DL (8.5-10.1); CARBON DIOXIDE 24 MMOL/L (21-32); CHLORIDE 103 MMOL/L (98-107); CREATININE 6.8 MG/DL (0.55-1.30); POTASSIUM 5.8 MMOL/L (3.5-5.1); SODIUM 137 MMOL/L (136-145)
[2018-08-04 08:39] LABS: ALANINE AMINOTRANSFERASE 16 U/L (12-78); ALBUMIN 3.1 G/DL (3.4-5.0); ALKALINE PHOSPHATASE 156 U/L (46-116); ASPARTATE AMINO TRANSFERASE 14 U/L (15-37); BILIRUBIN,DIRECT < 0.1 MG/DL (0.0-0.3); BILIRUBIN,TOTAL 0.4 MG/DL (0.2-1.0)
[2018-08-04] MEDS: Magnesium Oxide 400mg tab ORAL SCH ×3 (08:58→17:17)
[2018-08-04] MEDS: Imdur 30mg tab ORAL SCH (08:58)
[2018-08-04] MEDS: Aspirin Baby 81mg ORAL SCH (08:58)
[2018-08-04] MEDS: dilTIAZem HCl CD 180mg cap ORAL SCH (08:58)
[2018-08-04] MEDS: Lisinopril 20mg tab ORAL SCH ×2 (09:00→17:17)
[2018-08-04] MEDS: Docusate 100mg cap ORAL SCH ×2 (09:00→13:00)
[2018-08-04] MEDS: Heparin 5000 units/ml inj SUBQ SCH ×3 (09:07→20:42)
--- NOTE | 2018-08-04 10:29 | General Progress Note ---
Assessment/Plan Problem List: (1) Lumbar spondylosis ICD Codes: M47.816 - Spondylosis without myelopathy or radiculopathy, lumbar region SNOMED: 092063418 (2) Cocaine abuse ICD Codes: F14.10 - Cocaine abuse, uncomplicated SNOMED: 42348045 (3) DDD (degenerative disc disease) SNOMED: 39194574 Status: stable Assessment/Plan we will continue [place]. we will change Robaxin to Baclofen. Subjective Constitutional: Denies: no symptoms, chills, diaphoresis, fever, malaise, weakness, other HEENT: Reports: ear pain; Denies: ear discharge, nose pain, nose congestion, throat pain, throat swelling, mouth pain, mouth swelling Cardiovascular: Denies: no symptoms, chest pain, edema, irregular heart rate, lightheadedness, palpitations, syncope, other Respiratory: Denies: no symptoms, cough, orthopnea, shortness of breath, SOB with excertion, SOB at rest, sputum, stridor, wheezing, other Gastrointestinal/Abdominal: Denies: no symptoms, abdomen distended, abdominal pain, black stools, tarry stools, blood in stool, constipated, diarrhea, difficulty swallowing, nausea, poor appetite, poor fluid intake, rectal bleeding , vomiting, other Genitourinary: Denies: no symptoms, burning, discharge, frequency, flank pain, hematuria, incontinence, pain, urgency, other Neurologic/Psychiatric: Denies: no symptoms, anxiety, depressed, emotional problems, headache, numbness, paresthesia, pre-existing deficit, seizure, tingling, tremors, weakness, other Allergies: Coded Allergies: No Known Allergies (Unverified , 07/08/18) Subjective Pt reports that Robaxin doesnt work and wants another muscle relaxant. Objective Last 24 Hour Vital Signs Date Time Temp Pulse Resp B/P (MAP) Pulse Ox O2 Delivery O2 Flow Rate FiO2 08/04/18 09:00 146/93 08/04/18 08:58 86 146/93 08/04/18 08:58 86 146/93 08/04/18 08:58 146/93 08/04/18 08:00 97.5 86 20 146/93 (110) 99 08/04/18 07:38 83 22 99 Room Air 21 08/04/18 07:36 Room Air 21 08/04/18 07:36 83 22 Room Air 21 08/04/18 07:36 95 Room Air 21 08/04/18 07:30 88 22 95 Room Air 21 08/04/18 04:00 97.7 80 19 137/95 (109) 98 08/04/18 02:23 78 20 99 Nasal Cannula 2.0 28 08/04/18 02:16 80 20 99 Nasal Cannula 2.0 28 08/04/18 00:45 97.8 73 18 134/83 (100) 97 08/03/18 21:23 74 135/87 08/03/18 20:31 77 20 99 Nasal Cannula 2.0 28 08/03/18 20:22 80 20 98 Room Air 21 08/03/18 20:22 Room Air 21 08/03/18 20:22 98 Room Air 21 08/03/18 20:21 80 20 Room Air 21 08/03/18 20:00 Room Air 08/03/18 20:00 97.5 74 18 135/87 (103) 100 08/03/18 17:02 127/81 08/03/18 16:00 97.9 82 17 127/81 (96) 98 08/03/18 12:59 95 18 99 Room Air 21 08/03/18 12:50 75 18 92 Room Air 08/03/18 12:00 97.5 84 16 131/78 (95) 95 Intake and Output 08/03/18 08/04/18 19:00 07:00 Intake Total 1200 ml 460 ml Output Total 425 ml Balance 1200 ml 35 ml Intake Oral 460 ml Other 1200 ml Output Urine Total 425 ml # Voids 2 Laboratory Tests 08/03/18 15:00: White Blood Count 7.3, Red Blood Count 3.13L, Hemoglobin 9.6L, Hematocrit 31.8L , Mean Corpuscular Volume 101H, Mean Corpuscular Hemoglobin 30.8, Mean Corpuscular Hemoglobin Concent 30.4L, Red Cell Distribution Width 15.2H, Platelet Count 220, Mean Platelet Volume 6.6, Neutrophils (%) (Auto) 57.7, Lymphocytes (%) (Auto) 12.5L, Monocytes (%) (Auto) 14.7H, Eosinophils (%) (Auto ) 13.8H, Basophils (%) (Auto) 1.3 1/22/19 07:45: White Blood Count 7.2, Red Blood Count 3.14L, Hemoglobin 9.8L, Hematocrit 31.6L , Mean Corpuscular Volume 101H, Mean Corpuscular Hemoglobin 31.1H, Mean Corpuscular Hemoglobin Concent 30.9L, Red Cell Distribution Width 15.3H, Platelet Count 248, Mean Platelet Volume 6.6, Neutrophils (%) (Auto) 52.2, Lymphocytes (%) (Auto) 16.1L, Monocytes (%) (Auto) 13.7H, Eosinophils (%) (Auto ) 16.9H, Basophils (%) (Auto) 1.2, Sodium Level 137, Potassium Level 5.8H, Chloride Level 103, Carbon Dioxide Level 24, Anion Gap 10, Blood Urea Nitrogen 48H, Creatinine 6.8H, Estimat Glomerular Filtration Rate 10.2, Glucose Level 105 , Calcium Level 8.9, Phosphorus Level 5.0H, Magnesium Level 1.9, Total Bilirubin 0.4, Direct Bilirubin < 0.1, Aspartate Amino Transf (AST/SGOT) 14L, Alanine Aminotransferase (ALT/SGPT) 16, Alkaline Phosphatase 156H, Total Protein 7.2, Albumin 3.1L Height (Feet): 5 Height (Inches): 11.00 Weight (Pounds): 198 General Appearance: WD/WN Neck: non-tender Cardiovascular: normal rate Respiratory/Chest: lungs clear Abdomen: non tender Edema: no edema noted Arm (L), no edema noted Arm (R); 3+ Leg (L), 3+ Leg (R), 3+ Pedal (L), 3+ Pedal (R) Neurologic: alert, oriented x 3 Jazzy Rosado MD Aug 04, 2018 10:29
--- NOTE | 2018-08-04 11:02 | Cardiac Electrophysiology PN ---
Assessment/Plan Assessment/Plan 1. Troponin leak in the setting of cocaine use and renal failure. Levels are flat and low Avoid beta-pablo in view of active cocaine use. On aspirin and Lipitor. EF 45%. No CP 2. Hypertension. On Cardizem 360 daily, Metoprolol 100 bid, Imdur 60, Lisinopril 20 bid and HD 3. End-stage renal disease and hyperkalemia on HD by Dr. Cm 4. Substance use with cocaine. Avoid residential beta-blockers. 5. Recent pneumonia. 6. Congestive heart failure with EF 45% 7. Anemia s/p PRBCs . 8. Placement pending DW RN Subjective Subjective No CP or SOB. K high today and Lisinopril was held but Awaiting HD Objective Last 24 Hour Vital Signs Date Time Temp Pulse Resp B/P (MAP) Pulse Ox O2 Delivery O2 Flow Rate FiO2 08/04/18 09:00 146/93 08/04/18 08:58 86 146/93 08/04/18 08:58 86 146/93 08/04/18 08:58 146/93 08/04/18 08:00 97.5 86 20 146/93 (110) 99 08/04/18 07:38 83 22 99 Room Air 21 08/04/18 07:36 Room Air 21 08/04/18 07:36 83 22 Room Air 21 08/04/18 07:36 95 Room Air 21 08/04/18 07:30 88 22 95 Room Air 21 08/04/18 04:00 97.7 80 19 137/95 (109) 98 08/04/18 02:23 78 20 99 Nasal Cannula 2.0 28 08/04/18 02:16 80 20 99 Nasal Cannula 2.0 28 08/04/18 00:45 97.8 73 18 134/83 (100) 97 08/03/18 21:23 74 135/87 08/03/18 20:31 77 20 99 Nasal Cannula 2.0 28 08/03/18 20:22 80 20 98 Room Air 21 08/03/18 20:22 Room Air 21 08/03/18 20:22 98 Room Air 21 08/03/18 20:21 80 20 Room Air 21 08/03/18 20:00 Room Air 08/03/18 20:00 97.5 74 18 135/87 (103) 100 08/03/18 17:02 127/81 08/03/18 16:00 97.9 82 17 127/81 (96) 98 08/03/18 12:59 95 18 99 Room Air 21 08/03/18 12:50 75 18 92 Room Air 21 08/03/18 12:00 97.5 84 16 131/78 (95) 95 Intake and Output 08/03/18 08/04/18 19:00 07:00 Intake Total 1200 ml 460 ml Output Total 425 ml Balance 1200 ml 35 ml Intake Oral 460 ml Other 1200 ml Output Urine Total 425 ml # Voids 2 Laboratory Tests Test 08/03/18 15:00 08/04/18 07:45 White Blood Count 7.3 K/UL (4.8-10.8) 7.2 K/UL (4.8-10.8) Red Blood Count 3.13 M/UL (4.70-6.10) L 3.14 M/UL (4.70-6.10) L Hemoglobin 9.6 G/DL (14.2-18.0) L 9.8 G/DL (14.2-18.0) L Hematocrit 31.8 % (42.0-52.0) L 31.6 % (42.0-52.0) L Mean Corpuscular Volume 101 FL (80-99) H 101 FL (80-99) H Mean Corpuscular Hemoglobin 30.8 PG (27.0-31.0) 31.1 PG (27.0-31.0) H Mean Corpuscular Hemoglobin Concent 30.4 G/DL (32.0-36.0) L 30.9 G/DL (32.0-36.0) L Red Cell Distribution Width 15.2 % (11.6-14.8) H 15.3 % (11.6-14.8) H Platelet Count 220 K/UL (150-450) 248 K/UL (150-450) Mean Platelet Volume 6.6 FL (6.5-10.1) 6.6 FL (6.5-10.1) Neutrophils (%) (Auto) 57.7 % (45.0-75.0) 52.2 % (45.0-75.0) Lymphocytes (%) (Auto) 12.5 % (20.0-45.0) L 16.1 % (20.0-45.0) L Monocytes (%) (Auto) 14.7 % (1.0-10.0) H 13.7 % (1.0-10.0) H Eosinophils (%) (Auto) 13.8 % (0.0-3.0) H 16.9 % (0.0-3.0) H Basophils (%) (Auto) 1.3 % (0.0-2.0) 1.2 % (0.0-2.0) Sodium Level 137 MMOL/L (136-145) Potassium Level 5.8 MMOL/L (3.5-5.1) H Chloride Level 103 MMOL/L (98-107) Carbon Dioxide Level 24 MMOL/L (21-32) Anion Gap 10 mmol/L (5-15) Blood Urea Nitrogen 48 mg/dL (7-18) H Creatinine 6.8 MG/DL (0.55-1.30) H Estimat Glomerular Filtration Rate 10.2 mL/min (>60) Glucose Level 105 MG/DL (74-106) Calcium Level 8.9 MG/DL (8.5-10.1) Phosphorus Level 5.0 MG/DL (2.5-4.9) H Magnesium Level 1.9 MG/DL (1.8-2.4) Total Bilirubin 0.4 MG/DL (0.2-1.0) Direct Bilirubin < 0.1 MG/DL (0.0-0.3) Aspartate Amino Transf (AST/SGOT) 14 U/L (15-37) L Alanine Aminotransferase (ALT/SGPT) 16 U/L (12-78) Alkaline Phosphatase 156 U/L (46-116) H Total Protein 7.2 G/DL (6.4-8.2) Albumin 3.1 G/DL (3.4-5.0) L Objective HEAD AND NECK: No JVD. LUNGS: Clear CARDIOVASCULAR: Regular S1 and S2 with no gallop or murmur. ABDOMEN: Soft. EXTREMITIES: 1 plus pitting edema. German Gray MD Aug 04, 2018 11:02
--- NOTE | 2018-08-04 11:15 | Nephrology Progress Note ---
Assessment/Plan Problem List: (1) Renal failure (ARF), acute on chronic (2) Cocaine abuse (3) Acute exacerbation of CHF (congestive heart failure) (4) Hypertensive cardiomegaly with heart failure (5) Volume overload Assessment Acute on Chronic renal failure Anemia Elevated troponin Hypertensive renal and heart disease Cocaine abuse Cardiomyopathy Plan next HD 08/04 being done shortly readjust bp meds Dc planning increase Neurontin transfuse one unit 07/[address] Moura 2D Echo 55% ej fx BRIDGETT kidneys * Mild fullness of the bilateral renal collecting systems without radiographically appreciable stone and observed bilateral ureteral jets. Findings may be related to mild bladder distention. Consider repeat exam after bladder decompression. monitor renal parameters Avoid nephrotoxics renal diet flomax Subjective ROS Limited/Unobtainable: No Objective Objective Last 24 Hour Vital Signs Date Time Temp Pulse Resp B/P (MAP) Pulse Ox O2 Delivery O2 Flow Rate FiO2 08/04/18 09:00 146/93 08/04/18 08:58 86 146/93 08/04/18 08:58 86 146/93 08/04/18 08:58 146/93 08/04/18 08:00 97.5 86 20 146/93 (110) 99 08/04/18 07:38 83 22 99 Room Air 08/04/18 07:36 Room Air 21 08/04/18 07:36 83 22 Room Air 08/04/18 07:36 95 Room Air 21 08/04/18 07:30 88 22 95 Room Air 21 08/04/18 04:00 97.7 80 19 137/95 (109) 98 08/04/18 02:23 78 20 99 Nasal Cannula 2.0 08/04/18 02:16 80 20 99 Nasal Cannula 2.0 28 08/04/18 00:45 97.8 73 18 134/83 (100) 97 08/03/18 21:23 74 135/87 08/03/18 20:31 77 20 99 Nasal Cannula 2.0 28 08/03/18 20:22 80 20 98 Room Air 21 08/03/18 20:22 Room Air 21 08/03/18 20:22 98 Room Air 21 08/03/18 20:21 80 20 Room Air 21 08/03/18 20:00 Room Air 08/03/18 20:00 97.5 74 18 135/87 (103) 100 08/03/18 17:02 127/81 08/03/18 16:00 97.9 82 17 127/81 (96) 98 08/03/18 12:59 95 18 99 Room Air 21 08/03/18 12:50 75 18 92 Room Air 21 08/03/18 12:00 97.5 84 16 131/78 (95) 95 Intake and Output 08/03/18 08/04/18 19:00 07:00 Intake Total 1200 ml 460 ml Output Total 425 ml Balance 1200 ml 35 ml Intake Oral 460 ml Other 1200 ml Output Urine Total 425 ml # Voids 2 Current Medications Medications (Trade) Dose Ordered Sig/Harish Route PRN Reason Start Time Stop Time Status Last Admin Dose Admin Acetaminophen (Tylenol) 650 mg Q4H PRN ORAL Mild Pain/Temp > 100.5 07/26/18 22:00 08/25/18 21:59 07/27/18 02:11 Acetaminophen/ Hydrocodone Bitart ([place] 10/325) 1 tab Q4H PRN ORAL Severe Pain (Pain Scale 7-10) 08/03/18 19:45 08/10/18 19:44 Albuterol/ Ipratropium (Albuterol/ Ipratropium) 3 ml Q4H PRN HHN Shortness of Breath 08/01/18 16:30 08/06/18 16:29 Albuterol/ Ipratropium (Albuterol/ Ipratropium) 3 ml Q6HRT HHN 08/01/18 16:30 08/06/18 16:29 08/04/18 07:36 Aspirin (ASA) 81 mg DAILY ORAL 07/27/18 09:00 08/08/18 08:59 08/04/18 08:58 Baclofen (Lioresal) 10 mg Q6H PRN ORAL spasm 08/04/18 10:30 09/03/18 10:29 Chlorhexidine Gluconate (Laurel-Hex 2%) 1 applic DAILY@1999 TOPIC 07/27/18 20:00 08/25/18 19:59 08/03/18 21:23 Clonidine HCl (Catapres Tab) 0.1 mg Q4H PRN ORAL bp over 165 syst 07/26/18 22:00 08/25/18 21:59 07/31/18 12:59 Dextrose (Dextrose 50%) 25 ml Q30M PRN IV Hypoglycemia 07/26/18 22:00 08/07/18 16:29 Dextrose (Dextrose 50%) 50 ml Q30M PRN IV Hypoglycemia 07/26/18 22:00 08/07/18 16:29 Diltiazem HCl (Cardizem CD) 360 mg DAILY ORAL 08/01/18 09:00 08/25/18 08:59 08/04/18 08:58 Diphenhydramine HCl (Benadryl) 25 mg Q6H PRN ORAL Itching/Pruritis 07/26/18 22:30 08/07/18 16:29 08/03/18 01:27 Docusate Sodium (Colace) 100 mg THREE TIMES A DAY ORAL 07/27/18 09:00 08/20/18 17:59 08/03/18 17:01 Epoetin [place] (Procrit (for ESRD on dialysis)) 8,000 units FRI-FRI-FRI SUBQ 07/29/18 21:00 08/28/18 20:59 08/03/18 21:23 Gabapentin (Neurontin) 300 mg THREE TIMES A DAY ORAL 07/27/18 09:00 08/17/18 17:59 08/04/18 08:58 Heparin Sodium (Porcine) (Heparin 5000 units/ml) 5,000 units EVERY 12 HOURS SUBQ 07/27/18 09:00 08/14/18 21:59 08/03/18 21:28 Isosorbide Mononitrate (Imdur) 60 mg DAILY ORAL 07/27/18 09:00 08/11/18 08:59 08/04/18 08:58 Lisinopril (Prinivil) 20 mg BID ORAL 07/27/18 09:00 08/19/18 08:59 08/03/18 17:02 Magnesium Oxide (Mag-Ox 400mg) 400 mg THREE TIMES A DAY ORAL 08/02/18 13:00 09/01/18 12:59 08/04/18 08:58 Metoprolol Tartrate (Lopressor) 100 mg Q12HR ORAL 07/27/18 09:00 08/22/18 20:59 08/04/18 08:58 Pantoprazole (Protonix) 40 mg DAILY ORAL 07/27/18 09:00 08/10/18 21:59 08/04/18 09:15 Polyethylene Glycol (Miralax) 17 gm BEDTIME ORAL 07/27/18 21:00 08/20/18 20:59 07/29/18 21:01 Sennosides (Senokot) 8.6 mg DAILY PRN ORAL Constipation 08/03/18 11:00 09/02/18 10:59 Sevelamer Carbonate (Renvela) 800 mg THREE TIMES A DAY ORAL 07/27/18 09:00 08/08/18 17:59 08/04/18 08:58 Tamsulosin HCl (Flomax) 0.4 mg QHS ORAL 07/27/18 21:00 08/09/18 12:52 08/03/18 21:23 Laboratory Tests 08/03/18 15:00: White Blood Count 7.3, Red Blood Count 3.13L, Hemoglobin 9.6L, Hematocrit 31.8L , Mean Corpuscular Volume 101H, Mean Corpuscular Hemoglobin 30.8, Mean Corpuscular Hemoglobin Concent 30.4L, Red Cell Distribution Width 15.2H, Platelet Count 220, Mean Platelet Volume 6.6, Neutrophils (%) (Auto) 57.7, Lymphocytes (%) (Auto) 12.5L, Monocytes (%) (Auto) 14.7H, Eosinophils (%) (Auto ) 13.8H, Basophils (%) (Auto) 1.3 08/04/18 07:45: White Blood Count 7.2, Red Blood Count 3.14L, Hemoglobin 9.8L, Hematocrit 31.6L , Mean Corpuscular Volume 101H, Mean Corpuscular Hemoglobin 31.1H, Mean Corpuscular Hemoglobin Concent 30.9L, Red Cell Distribution Width 15.3H, Platelet Count 248, Mean Platelet Volume 6.6, Neutrophils (%) (Auto) 52.2, Lymphocytes (%) (Auto) 16.1L, Monocytes (%) (Auto) 13.7H, Eosinophils (%) (Auto ) 16.9H, Basophils (%) (Auto) 1.2, Sodium Level 137, Potassium Level 5.8H, Chloride Level 103, Carbon Dioxide Level 24, Anion Gap 10, Blood Urea Nitrogen 48H, Creatinine 6.8H, Estimat Glomerular Filtration Rate 10.2, Glucose Level 105 , Calcium Level 8.9, Phosphorus Level 5.0H, Magnesium Level 1.9, Total Bilirubin 0.4, Direct Bilirubin < 0.1, Aspartate Amino Transf (AST/SGOT) 14L, Alanine Aminotransferase (ALT/SGPT) 16, Alkaline Phosphatase 156H, Total Protein 7.2, Albumin 3.1L Height (Feet): 5 Height (Inches): 11.00 Weight (Pounds): 198 General Appearance: no apparent distress Cardiovascular: normal rate Respiratory/Chest: decreased breath sounds Abdomen: soft Objective no change Richar Cm MD Aug 04, 2018 11:15
[2018-08-04 12:00] VITALS: BP 133/91
--- NOTE | 2018-08-04 13:22 | GI Progress Note ---
Assessment/Plan Problems: (1) Macrocytic anemia ICD Codes: D53.9 - Nutritional anemia, unspecified SNOMED: 29790848 (2) Iron deficiency ICD Codes: E61.1 - Iron deficiency SNOMED: 58041752 (3) Constipation ICD Codes: K59.00 - Constipation, unspecified SNOMED: 01591557 (4) Cocaine abuse ICD Codes: F14.10 - Cocaine abuse, uncomplicated SNOMED: 93103764 (5) Pancreatitis ICD Codes: K85.90 - Acute pancreatitis without necrosis or infection, unspecified SNOMED: 06685251 Status: unchanged Status Narrative Discussed with Dr. Shea Assessment/Plan Pancreatitis now resolved Hepatitis panel negative history of hernia repair Stable H&H OB stool r/o GI bleed not collected monitor H&H, prn transfusions bowel regime ppi venofer renal diet fu labs outpatient GI procedures The patient was seen and examined at bedside and all new and available data was reviewed in the patients chart. I agree with the above findings, impression and plan. (Patient seen earlier today. Signature stamp does not reflect patient encounter time.). - Nikolas Shea MD Subjective Subjective Complains of mild constipation had complaint of lower abdominal pain, believes there is problem with his hernia mesh Denies any pain at this time Objective Last 24 Hour Vital Signs Date Time Temp Pulse Resp B/P (MAP) Pulse Ox O2 Delivery O2 Flow Rate FiO2 08/04/18 12:00 98.2 88 20 133/91 (105) 95 08/04/18 09:00 Room Air 08/04/18 09:00 146/93 08/04/18 08:58 86 146/93 08/04/18 08:58 86 146/93 08/04/18 08:58 146/93 08/04/18 08:00 97.5 86 20 146/93 (110) 99 08/04/18 07:38 83 22 99 Room Air 21 08/04/18 07:36 Room Air 21 08/04/18 07:36 83 22 Room Air 21 08/04/18 07:36 95 Room Air 21 08/04/18 07:30 88 22 95 Room Air 21 08/04/18 04:00 97.7 80 19 137/95 (109) 98 08/04/18 02:23 78 20 99 Nasal Cannula 2.0 28 08/04/18 02:16 80 20 99 Nasal Cannula 2.0 28 08/04/18 00:45 97.8 73 18 134/83 (100) 97 08/03/18 21:23 74 135/87 08/03/18 20:31 77 20 99 Nasal Cannula 2.0 28 08/03/18 20:22 80 20 98 Room Air 21 08/03/18 20:22 Room Air 21 08/03/18 20:22 98 Room Air 21 08/03/18 20:21 80 20 Room Air 21 08/03/18 20:00 Room Air 08/03/18 20:00 97.5 74 18 135/87 (103) 100 08/03/18 17:02 127/81 08/03/18 16:00 97.9 82 17 127/81 (96) 98 Intake and Output 08/03/18 08/04/18 19:00 07:00 Intake Total 1200 ml 460 ml Output Total 425 ml Balance 1200 ml 35 ml Intake Oral 460 ml Other 1200 ml Output Urine Total 425 ml # Voids 2 Laboratory Tests Test 08/03/18 15:00 08/04/18 07:45 White Blood Count 7.3 K/UL (4.8-10.8) 7.2 K/UL (4.8-10.8) Red Blood Count 3.13 M/UL (4.70-6.10) L 3.14 M/UL (4.70-6.10) L Hemoglobin 9.6 G/DL (14.2-18.0) L 9.8 G/DL (14.2-18.0) L Hematocrit 31.8 % (42.0-52.0) L 31.6 % (42.0-52.0) L Mean Corpuscular Volume 101 FL (80-99) H 101 FL (80-99) H Mean Corpuscular Hemoglobin 30.8 PG (27.0-31.0) 31.1 PG (27.0-31.0) H Mean Corpuscular Hemoglobin Concent 30.4 G/DL (32.0-36.0) L 30.9 G/DL (32.0-36.0) L Red Cell Distribution Width 15.2 % (11.6-14.8) H 15.3 % (11.6-14.8) H Platelet Count 220 K/UL (150-450) 248 K/UL (150-450) Mean Platelet Volume 6.6 FL (6.5-10.1) 6.6 FL (6.5-10.1) Neutrophils (%) (Auto) 57.7 % (45.0-75.0) 52.2 % (45.0-75.0) Lymphocytes (%) (Auto) 12.5 % (20.0-45.0) L 16.1 % (20.0-45.0) L Monocytes (%) (Auto) 14.7 % (1.0-10.0) H 13.7 % (1.0-10.0) H Eosinophils (%) (Auto) 13.8 % (0.0-3.0) H 16.9 % (0.0-3.0) H Basophils (%) (Auto) 1.3 % (0.0-2.0) 1.2 % (0.0-2.0) Sodium Level 137 MMOL/L (136-145) Potassium Level 5.8 MMOL/L (3.5-5.1) H Chloride Level 103 MMOL/L (98-107) Carbon Dioxide Level 24 MMOL/L (21-32) Anion Gap 10 mmol/L (5-15) Blood Urea Nitrogen 48 mg/dL (7-18) H Creatinine 6.8 MG/DL (0.55-1.30) H Estimat Glomerular Filtration Rate 10.2 mL/min (>60) Glucose Level 105 MG/DL (74-106) Calcium Level 8.9 MG/DL (8.5-10.1) Phosphorus Level 5.0 MG/DL (2.5-4.9) H Magnesium Level 1.9 MG/DL (1.8-2.4) Total Bilirubin 0.4 MG/DL (0.2-1.0) Direct Bilirubin < 0.1 MG/DL (0.0-0.3) Aspartate Amino Transf (AST/SGOT) 14 U/L (15-37) L Alanine Aminotransferase (ALT/SGPT) 16 U/L (12-78) Alkaline Phosphatase 156 U/L (46-116) H Total Protein 7.2 G/DL (6.4-8.2) Albumin 3.1 G/DL (3.4-5.0) L Height (Feet): 5 Height (Inches): 11.00 Weight (Pounds): 198 General Appearance: WD/WN, no apparent distress, alert Cardiovascular: normal rate Respiratory/Chest: normal breath sounds, no respiratory distress Abdominal Exam: normal bowel sounds, non tender, soft Extremities: normal range of motion, non-tender Daja Murdock NP Aug 04, 2018 13:22
--- NOTE | 2018-08-04 15:37 | Pulmonology Progress Note ---
Assessment/Plan Assessment/Plan Pulmonary Progress Note Assessment/Plan Problems: (1) Acute exacerbation of CHF (congestive heart failure) (2) Hypertensive cardiomegaly with heart failure (3) ACS (acute coronary syndrome) (4) Cocaine abuse (5) ARF (acute renal failure) (6) DDD (degenerative disc disease) (7) Epistaxis (8) Hypercapnic respiratory failure TREATMENT PLAN: -BiPAP 12/5 qHS and PRN - DECLINES -Titrate FiO2 -PRN DUOnebs -HD per renal with UF as able -Control BP -F/U cards and renal recs -F/U heme recs -F/U GI recs ---> plan for outpatient EGD/colo -DVT Px: hep SQ -Pain control/supportive care - minimize narcotics/sedatives -F/U pain management recs -Appreciate psych eval, has capacity, F/U recs -SW assistance in placement Subjective Allergies: Coded Allergies: No Known Allergies (Unverified , 07/08/18) Subjective ROHINI AFVSS, stable O2 needs Feels the same, no sig SOB, no CP, no F/C Objective Vital Signs Noted General Appearance: WD/WN, no acute distress HEENT: normocephalic, atraumatic, anicteric, mucous membranes moist Respiratory/Chest: chest wall non-tender, lungs clear, normal breath sounds, no respiratory distress Cardiovascular: normal peripheral pulses, normal rate, regular rhythm Abdomen: normal bowel sounds, soft, non tender, no organomegaly, non distended , no mass Extremities: no cyanosis, no clubbing, no edema Laboratory Tests 07/31/18 06:24: White Blood Count 8.1, Red Blood Count 3.13L, Hemoglobin 9.7L, Hematocrit 31.4L , Mean Corpuscular Volume 100H, Mean Corpuscular Hemoglobin 30.9, Mean Corpuscular Hemoglobin Concent 30.8L, Red Cell Distribution Width 14.6, Platelet Count 213, Mean Platelet Volume 6.5, Neutrophils (%) (Auto) 63.8, Lymphocytes (%) (Auto) 18.1L, Monocytes (%) (Auto) 11.2H, Eosinophils (%) (Auto ) 5.8H, Basophils (%) (Auto) 1.2, Sodium Level 138, Potassium Level 4.5, Chloride Level 101, Carbon Dioxide Level 30, Anion Gap 8, Blood Urea Nitrogen 33H, Creatinine 5.2H, Estimat Glomerular Filtration Rate 13.9, Glucose Level 90 , Calcium Level 9.0, Phosphorus Level 3.0, Magnesium Level 1.6L Current Medications Medications (Trade) Dose Ordered Sig/Harish Route PRN Reason Start Time Stop Time Status Last Admin Dose Admin Acetaminophen (Tylenol) 650 mg Q4H PRN ORAL Mild Pain/Temp > 100.5 07/26/18 22:00 08/25/18 21:59 07/27/18 02:11 Acetaminophen/ Hydrocodone Bitart ([place] 10/325) 1 tab Q4H PRN ORAL SEVERE Pain 07/27/18 17:51 08/03/18 17:50 07/31/18 04:11 Albuterol/ Ipratropium (Albuterol/ Ipratropium) 3 ml Q4H PRN HHN Shortness of Breath 07/26/18 22:00 07/31/18 21:59 07/30/18 05:53 Aspirin (ASA) 81 mg DAILY ORAL 07/27/18 09:00 08/08/18 08:59 07/31/18 08:36 Chlorhexidine Gluconate (Laurel-Hex 2%) 1 applic DAILY@2000 TOPIC 07/27/18 20:00 08/25/18 19:59 07/30/18 21:36 Clonidine HCl (Catapres Tab) 0.1 mg Q4H PRN ORAL bp over 165 syst 07/26/18 22:00 08/25/18 21:59 Dextrose (Dextrose 50%) 25 ml Q30M PRN IV Hypoglycemia 07/26/18 22:00 08/07/18 16:29 Dextrose (Dextrose 50%) 50 ml Q30M PRN IV Hypoglycemia 07/26/18 22:00 08/07/18 16:29 Diltiazem HCl (Cardizem CD) 240 mg DAILY ORAL 07/27/18 09:00 08/25/18 08:59 07/31/18 08:35 Diphenhydramine HCl (Benadryl) 25 mg Q6H PRN ORAL Itching/Pruritis 07/26/18 22:30 08/07/18 16:29 07/30/18 21:44 Docusate Sodium (Colace) 100 mg THREE TIMES A DAY ORAL 07/27/18 09:00 08/20/18 17:59 07/31/18 08:35 Epoetin Juan Pablo (Procrit (for ESRD on dialysis)) 8,000 units FRI-FRI-FRI SUBQ 07/29/18 21:00 08/28/18 20:59 07/29/18 21:00 Gabapentin (Neurontin) 300 mg THREE TIMES A DAY ORAL 07/27/18 09:00 08/17/18 17:59 07/31/18 08:35 Heparin Sodium (Porcine) (Heparin 5000 units/ml) 5,000 units EVERY 12 HOURS SUBQ 07/27/18 09:00 08/14/18 21:59 07/31/18 08:37 Isosorbide Mononitrate (Imdur) 60 mg DAILY ORAL 07/27/18 09:00 08/11/18 08:59 07/31/18 08:36 Lisinopril (Prinivil) 20 mg BID ORAL 07/27/18 09:00 08/19/18 08:59 07/31/18 08:36 Methocarbamol (Robaxin) 500 mg Q8H PRN ORAL muscle spasm 07/29/18 09:15 08/28/18 09:14 07/30/18 17:13 Metoprolol Tartrate (Lopressor) 100 mg Q12HR ORAL 07/27/18 09:00 08/22/18 20:59 07/31/18 08:35 Pantoprazole (Protonix) 40 mg DAILY ORAL 07/27/18 09:00 08/10/18 21:59 07/31/18 08:35 Polyethylene Glycol (Miralax) 17 gm BEDTIME ORAL 07/27/18 21:00 08/20/18 20:59 07/29/18 21:01 Sevelamer Carbonate (Renvela) 800 mg THREE TIMES A DAY ORAL 07/27/18 09:00 08/08/18 17:59 07/31/18 08:36 Tamsulosin HCl (Flomax) 0.4 mg QHS ORAL 07/27/18 21:00 08/09/18 12:52 07/30/18 21:36 Subjective ROS Limited/Unobtainable: No Allergies: Coded Allergies: No Known Allergies (Unverified , 07/08/18) Objective Last 24 Hour Vital Signs Date Time Temp Pulse Resp B/P (MAP) Pulse Ox O2 Delivery O2 Flow Rate FiO2 08/04/18 13:31 77 20 98 Room Air 21 08/04/18 13:24 74 20 94 Room Air 21 08/04/18 12:00 98.2 88 20 133/91 (105) 95 08/04/18 09:00 Room Air 08/04/18 09:00 146/93 08/04/18 08:58 86 146/93 08/04/18 08:58 86 146/93 08/04/18 08:58 146/93 08/04/18 08:00 97.5 86 20 146/93 (110) 99 08/04/18 07:38 83 22 99 Room Air 21 08/04/18 07:36 Room Air 08/04/18 07:36 83 22 Room Air 08/04/18 07:36 95 Room Air 08/04/18 07:30 88 22 95 Room Air 08/04/18 04:00 97.7 80 19 137/95 (109) 98 08/04/18 02:23 78 20 99 Nasal Cannula 2.0 28 08/04/18 02:16 80 20 99 Nasal Cannula 2.0 28 08/04/18 00:45 97.8 73 18 134/83 (100) 97 08/03/18 21:23 74 135/87 08/03/18 20:31 77 20 99 Nasal Cannula 2.0 28 08/03/18 20:22 80 20 98 Room Air 21 08/03/18 20:22 Room Air 21 08/03/18 20:22 98 Room Air 21 08/03/18 20:21 80 20 Room Air 08/03/18 20:00 Room Air 08/03/18 20:00 97.5 74 18 135/87 (103) 100 08/03/18 17:02 127/81 08/03/18 16:00 97.9 82 17 127/81 (96) 98 Intake and Output 08/03/18 08/04/18 19:00 07:00 Intake Total 1200 ml 460 ml Output Total 425 ml Balance 1200 ml 35 ml Intake Oral 460 ml Other 1200 ml Output Urine Total 425 ml # Voids 2 Laboratory Tests 08/04/18 07:45: White Blood Count 7.2, Red Blood Count 3.14L, Hemoglobin 9.8L, Hematocrit 31.6L , Mean Corpuscular Volume 101H, Mean Corpuscular Hemoglobin 31.1H, Mean Corpuscular Hemoglobin Concent 30.9L, Red Cell Distribution Width 15.3H, Platelet Count 248, Mean Platelet Volume 6.6, Neutrophils (%) (Auto) 52.2, Lymphocytes (%) (Auto) 16.1L, Monocytes (%) (Auto) 13.7H, Eosinophils (%) (Auto ) 16.9H, Basophils (%) (Auto) 1.2, Sodium Level 137, Potassium Level 5.8H, Chloride Level 103, Carbon Dioxide Level 24, Anion Gap 10, Blood Urea Nitrogen 48H, Creatinine 6.8H, Estimat Glomerular Filtration Rate 10.2, Glucose Level 105 , Calcium Level 8.9, Phosphorus Level 5.0H, Magnesium Level 1.9, Total Bilirubin 0.4, Direct Bilirubin < 0.1, Aspartate Amino Transf (AST/SGOT) 14L, Alanine Aminotransferase (ALT/SGPT) 16, Alkaline Phosphatase 156H, Total Protein 7.2, Albumin 3.1L Current Medications Medications (Trade) Dose Ordered Sig/Harish Route PRN Reason Start Time Stop Time Status Last Admin Dose Admin Acetaminophen (Tylenol) 650 mg Q4H PRN ORAL Mild Pain/Temp > 100.5 07/26/18 22:00 08/25/18 21:59 07/27/18 02:11 Acetaminophen/ Hydrocodone Bitart ([place] 10/325) 1 tab Q4H PRN ORAL Severe Pain (Pain Scale 7-10) 08/03/18 19:45 08/10/18 19:44 Albuterol/ Ipratropium (Albuterol/ Ipratropium) 3 ml Q4H PRN HHN Shortness of Breath 08/01/18 16:30 08/06/18 16:29 Albuterol/ Ipratropium (Albuterol/ Ipratropium) 3 ml Q6HRT HHN 08/01/18 16:30 08/06/18 16:29 08/04/18 13:30 Aspirin (ASA) 81 mg DAILY ORAL 07/27/18 09:00 08/08/18 08:59 08/04/18 08:58 Baclofen (Lioresal) 10 mg Q6H PRN ORAL spasm 08/04/18 10:30 09/03/18 10:29 Chlorhexidine Gluconate (Laurel-Hex 2%) 1 applic DAILY@2000 TOPIC 07/27/18 20:00 08/25/18 19:59 08/03/18 21:23 Clonidine HCl (Catapres Tab) 0.1 mg Q4H PRN ORAL bp over 165 syst 07/26/18 22:00 08/25/18 21:59 07/31/18 12:59 Dextrose (Dextrose 50%) 25 ml Q30M PRN IV Hypoglycemia 07/26/18 22:00 08/07/18 16:29 Dextrose (Dextrose 50%) 50 ml Q30M PRN IV Hypoglycemia 07/26/18 22:00 08/07/18 16:29 Diltiazem HCl (Cardizem CD) 360 mg DAILY ORAL 08/01/18 09:00 08/25/18 08:59 08/04/18 08:58 Diphenhydramine HCl (Benadryl) 25 mg Q6H PRN ORAL Itching/Pruritis 07/26/18 22:30 08/07/18 16:29 08/03/18 01:27 Docusate Sodium (Colace) 100 mg THREE TIMES A DAY ORAL 07/27/18 09:00 08/20/18 17:59 08/03/18 17:01 Epoetin Juan Pablo (Procrit (for ESRD on dialysis)) 8,000 units FRI-FRI-FRI SUBQ 07/29/18 21:00 08/28/18 20:59 08/03/18 21:23 Gabapentin (Neurontin) 300 mg THREE TIMES A DAY ORAL 07/27/18 09:00 08/17/18 17:59 08/04/18 13:56 Heparin Sodium (Porcine) (Heparin 5000 units/ml) 5,000 units EVERY 12 HOURS SUBQ 07/27/18 09:00 08/14/18 21:59 08/04/18 14:04 Isosorbide Mononitrate (Imdur) 60 mg DAILY ORAL 07/27/18 09:00 08/11/18 08:59 08/04/18 08:58 Lisinopril (Prinivil) 20 mg BID ORAL 07/27/18 09:00 08/19/18 08:59 08/03/18 17:02 Magnesium Oxide (Mag-Ox 400mg) 400 mg THREE TIMES A DAY ORAL 08/02/18 13:00 09/01/18 12:59 08/04/18 13:56 Metoprolol Tartrate (Lopressor) 100 mg Q12HR ORAL 07/27/18 09:00 08/22/18 20:59 08/04/18 08:58 Pantoprazole (Protonix) 40 mg DAILY ORAL 07/27/18 09:00 08/10/18 21:59 08/04/18 09:15 Polyethylene Glycol (Miralax) 17 gm BEDTIME ORAL 07/27/18 21:00 08/20/18 20:59 07/29/18 21:01 Sennosides (Senokot) 8.6 mg DAILY PRN ORAL Constipation 08/03/18 11:00 09/02/18 10:59 Sevelamer Carbonate (Renvela) 1,600 mg THREE TIMES A DAY ORAL 08/04/18 13:00 08/08/18 17:59 08/04/18 13:56 Tamsulosin HCl (Flomax) 0.4 mg QHS ORAL 07/27/18 21:00 08/09/18 12:52 08/03/18 21:23 Pablito Mac MD Aug 04, 2018 15:37
[2018-08-04 16:00] VITALS: BP 117/71
[2018-08-04] MEDS ORDERED: Miralax 17gm pkt ORAL PRN (16:15)
[2018-08-04 20:24] VITALS: BP 121/72
[2018-08-04] MEDS: Dyna-Hex 2% Top Sol 2oz TOPIC SCH (20:38)
[2018-08-04] MEDS: Tamsulosin 0.4mg cap ORAL SCH (20:38)
[2018-08-04] MEDS: HYDROcodone/Acetamin 10/325 tab ORAL PRN (20:45)
--- NOTE | 2018-08-04 22:01 | General Progress Note ---
Assessment/Plan Assessment/Plan # Anemia of chronic disease, multifactorial, curtis on ckd --> Anemia w/u has been reviewed, no eric noted --> No evidence of hemolysis is noted, peripheral smear is wnl --> Hgb goal >7. Transfuse prn. --> continue on epo sq --> on iron --> s/p blood transfusion # Congestive heart failure with acute decompensated heart failure. --> per cards management --> In tele unit --> on diuresis # Curtis, likely cardiorenal syndrome. --> Nephrology is following appreciate recs --> HD 08/04/18 --> BRIDGETT kidneys with minimal fullness, seen by renal, echogenicity is wnl # History of cocaine abuse with current positive tox screen. --> recommend cessation # Hypertension with hypertensive urgency. --> On Norvasc 5 mg bid, Hydralazine,Imdur and Clonidine patch as needed --> Avoid beta-blockers for active cocaine # Acute coronary syndrome/non-ST elevation myocardial infarction. --> per cards The date and time note entered does not reflect time and date patient was seen. GREATLY APPRECIATE CONSULTATION. Subjective Constitutional: Denies: no symptoms, chills, diaphoresis, fever, malaise, weakness, other HEENT: Denies: no symptoms, eye pain, blurred vision, tearing, double vision, ear pain, ear discharge, nose pain, nose congestion, throat pain, throat swelling, mouth pain, mouth swelling, other Cardiovascular: Denies: no symptoms, chest pain, edema, irregular heart rate, lightheadedness, palpitations, syncope, other Respiratory: Denies: no symptoms, cough, orthopnea, shortness of breath, SOB with excertion, SOB at rest, sputum, stridor, wheezing, other Gastrointestinal/Abdominal: Denies: no symptoms, abdomen distended, abdominal pain, black stools, tarry stools, blood in stool, constipated, diarrhea, difficulty swallowing, nausea, poor appetite, poor fluid intake, rectal bleeding , vomiting, other Genitourinary: Denies: no symptoms, burning, discharge, frequency, flank pain, hematuria, incontinence, pain, urgency, other Neurologic/Psychiatric: Denies: no symptoms, anxiety, depressed, emotional problems, headache, numbness, paresthesia, pre-existing deficit, seizure, tingling, tremors, weakness, other Endocrine: Denies: no symptoms, excessive sweating, flushing, intolerance to cold, intolerance to heat, increased hunger, increased thirst, increased urine, unexplained weight gain, unexplained weight loss, other Hematologic/Lymphatic: Denies: no symptoms, anemia, easy bleeding, easy bruising, other Allergies: Coded Allergies: No Known Allergies (Unverified , 07/08/18) Subjective 07/12: no events, cr trending, h/h stable, on epo 07/14: transfuse one unit 07/13, diruresed, refused mendez, seen by cards, bp better 07/15 : Pt is seen in the room, awake and alert, S/P blood transfusion, refusing HD 07/16 : Pt is awake and resting in bed. waiting on sister to make HD decision, no events 07/17 Pt is seen in the room,awake and alert, appears to be agreeable for placement of dialysis cath and dialysis . 07/18: Pt is seen in the room, No CP or SOB. Had HD today. 07/19: Pt is awake and resting in bed. Denies pain, SOB or fevers and chills. Has HD scheduled for 07/20/18, currently stable. 07/20: received hand held nebulizer, no other events, no f.c 07/21 : Pt seen by bedside, continues on breathing treatment, HD 07/22/18, no events 07/22: pending snf placement and outpatient hd 07/23: awake and resting in bed. no acute events, waiting placement and outpatient HD 07/24: no major events, waiting placement, seen by gi, recs reviewed, no complaints, on epo 07/25: CXR for patient c/o sob. O2 2L via NC administered. patient is A/A/Ox4. patient BLE edematous 07/26: Continues on oxygen of 3L/min via N/C. no acute respiratory distress is noted. Permacath to right chest for HD is intact 07/27: awake and comfortable, alert and oriented , next HD 07/28 07/28: Pt is seen by bedside, bipap is D/C, HD scheduled today, no events 07/29: Pt is awake and calm, Denies pain, SOB or fevers and chills, next HD 07/30. 07/30: hd pending, no major events, some sob 07/31: no complaints this am, r permacath in chest without issue, placement pending 08/04: pt is seen by bedside, awake, comfortable, waiting HD. Objective Last 24 Hour Vital Signs Date Time Temp Pulse Resp B/P (MAP) Pulse Ox O2 Delivery O2 Flow Rate FiO2 08/04/18 21:19 97.5 08/04/18 20:38 81 121/72 08/04/18 20:24 97.5 81 17 121/72 (88) 93 08/04/18 20:19 Room Air 08/04/18 19:40 87 22 97 Room Air 08/04/18 19:39 Room Air 08/04/18 19:39 83 20 Room Air 08/04/18 19:39 94 Room Air 08/04/18 19:32 83 22 96 Room Air 08/04/18 17:17 117/71 08/04/18 16:00 98.2 77 20 117/71 (86) 100 08/04/18 13:31 77 20 98 Room Air 21 08/04/18 13:24 74 20 94 Room Air 08/04/18 12:00 98.2 88 20 133/91 (105) 95 08/04/18 09:00 Room Air 08/04/18 09:00 146/93 08/04/18 08:58 86 146/93 08/04/18 08:58 86 146/93 08/04/18 08:58 146/93 08/04/18 08:00 97.5 86 20 146/93 (110) 99 08/04/18 07:38 83 22 99 Room Air 08/04/18 07:36 Room Air 08/04/18 07:36 83 22 Room Air 08/04/18 07:36 95 Room Air 08/04/18 07:30 88 22 95 Room Air 08/04/18 04:00 97.7 80 19 137/95 (109) 98 08/04/18 02:23 78 20 99 Nasal Cannula 2.0 08/04/18 02:16 80 20 99 Nasal Cannula 2.0 28 08/04/18 00:45 97.8 73 18 134/83 (100) 97 Intake and Output 08/03/18 08/04/18 19:00 07:00 Intake Total 1200 ml 460 ml Output Total 425 ml Balance 1200 ml 35 ml Intake Oral 460 ml Other 1200 ml Output Urine Total 425 ml # Voids 2 Laboratory Tests 08/04/18 07:45: White Blood Count 7.2, Red Blood Count 3.14L, Hemoglobin 9.8L, Hematocrit 31.6L , Mean Corpuscular Volume 101H, Mean Corpuscular Hemoglobin 31.1H, Mean Corpuscular Hemoglobin Concent 30.9L, Red Cell Distribution Width 15.3H, Platelet Count 248, Mean Platelet Volume 6.6, Neutrophils (%) (Auto) 52.2, Lymphocytes (%) (Auto) 16.1L, Monocytes (%) (Auto) 13.7H, Eosinophils (%) (Auto ) 16.9H, Basophils (%) (Auto) 1.2, Sodium Level 137, Potassium Level 5.8H, Chloride Level 103, Carbon Dioxide Level 24, Anion Gap 10, Blood Urea Nitrogen 48H, Creatinine 6.8H, Estimat Glomerular Filtration Rate 10.2, Glucose Level 105 , Calcium Level 8.9, Phosphorus Level 5.0H, Magnesium Level 1.9, Total Bilirubin 0.4, Direct Bilirubin < 0.1, Aspartate Amino Transf (AST/SGOT) 14L, Alanine Aminotransferase (ALT/SGPT) 16, Alkaline Phosphatase 156H, Total Protein 7.2, Albumin 3.1L Height (Feet): 5 Height (Inches): 11.00 Weight (Pounds): 198 Objective Physical Exam General Appearance: A+O x2 NAD HEENT: normocephalic, atraumatic, R permacath Neck: non-tender, normal alignment Respiratory/Chest: chest wall non-tender, lungs clear Cardiovascular/Chest: normal peripheral pulses, normal rate Abdomen: normal bowel sounds, non tender Extremities: normal range of motion Shane Mary MD Aug 04, 2018 22:01
[2018-08-05] VITALS: BP 117/72
[2018-08-05] MEDS: Albuterol/Ipratropium 3ml neb HHN SCH ×4 (01:17→19:57)
[2018-08-05] MEDS: HYDROcodone/Acetamin 10/325 tab ORAL PRN ×3 (02:14→14:58)
[2018-08-05 04:00] VITALS: BP 127/78
[2018-08-05 08:00] VITALS: BP 146/97
--- NOTE | 2018-08-05 08:30 | General Progress Note ---
Assessment/Plan Assessment/Plan (1) Lumbar DDD (2) Lumbar Spondylosis (3) Cocaine Abuse Patient will be continued on Baclofen and Jbphh as needed. D/w Dr. Rosado and he concurred. Subjective Date patient seen: Aug 05, 2018 Time patient seen: 07:00 - am Allergies: Coded Allergies: No Known Allergies (Unverified , 07/08/18) Subjective REVIEW OF SYSTEMS: Denies rash, fever, chills, sweating, dizziness, drowsiness, blurred vision, or change in weight. No chest pain. No nausea, vomiting, diarrhea, or blood in the stool or urine. No bowel or bladder incontinence. He is complaining of low back pain. SUBJECTIVE: Patient is doing well and reports that the Jbphh has continued to reduce his pain and is using the baclofen. Objective Last 24 Hour Vital Signs Date Time Temp Pulse Resp B/P (MAP) Pulse Ox O2 Delivery O2 Flow Rate FiO2 08/05/18 07:50 77 20 97 Room Air 08/05/18 07:40 77 20 97 Room Air 08/05/18 07:30 98 Room Air 21 08/05/18 07:30 80 20 Room Air 08/05/18 07:30 Room Air 08/05/18 04:00 96.8 78 20 127/78 (94) 99 08/05/18 02:45 96.8 08/05/18 01:26 74 20 99 Room Air 08/05/18 01:17 71 20 98 Room Air 08/05/18 00:00 96.8 80 18 117/72 (87) 95 08/04/18 20:38 81 121/72 08/04/18 20:24 97.5 81 17 121/72 (88) 93 08/04/18 20:19 Room Air 08/04/18 19:40 87 22 97 Room Air 08/04/18 19:39 Room Air 21 08/04/18 19:39 83 20 Room Air 08/04/18 19:39 94 Room Air 21 08/04/18 19:32 83 22 96 Room Air 08/04/18 17:17 117/71 08/04/18 16:00 98.2 77 20 117/71 (86) 100 08/04/18 13:31 77 20 98 Room Air 21 08/04/18 13:24 74 20 94 Room Air 21 08/04/18 12:00 98.2 88 20 133/91 (105) 95 08/04/18 09:00 Room Air 08/04/18 09:00 146/93 08/04/18 08:58 86 146/93 08/04/18 08:58 86 146/93 08/04/18 08:58 146/93 Intake and Output 08/04/18 08/05/18 19:00 07:00 Intake Total 1060 ml Output Total 3600 ml Balance -2540 ml Intake Oral 1060 ml Output Urine Total 600 ml Hemodialysis UF 3000 ml # Voids 5 Height (Feet): 5 Height (Inches): 11.00 Weight (Pounds): 195 Objective GENERAL: Alert, awake, and oriented. LUNGS: Decreased breath sounds bilaterally. HEART: S1 and S2 regular. ABDOMEN: Soft, nontender. EXTREMITIES: No CCE NEURO: No changes. James Ramirez Aug 05, 2018 08:30
[2018-08-05] MEDS: Lisinopril 20mg tab ORAL SCH ×2 (09:46→18:25)
[2018-08-05] MEDS: Magnesium Oxide 400mg tab ORAL SCH ×3 (09:47→18:39)
[2018-08-05] MEDS: Aspirin Baby 81mg ORAL SCH (09:47)
[2018-08-05] MEDS: dilTIAZem HCl CD 180mg cap ORAL SCH (09:47)
[2018-08-05] MEDS: Imdur 30mg tab ORAL SCH (09:48)
[2018-08-05] MEDS: Heparin 5000 units/ml inj SUBQ SCH ×2 (09:55→20:59)
--- NOTE | 2018-08-05 11:03 | GI Progress Note ---
Assessment/Plan Problems: (1) Macrocytic anemia ICD Codes: D53.9 - Nutritional anemia, unspecified SNOMED: 41628686 (2) Iron deficiency ICD Codes: E61.1 - Iron deficiency SNOMED: 00254515 (3) Constipation ICD Codes: K59.00 - Constipation, unspecified SNOMED: 81584151 (4) Cocaine abuse ICD Codes: F14.10 - Cocaine abuse, uncomplicated SNOMED: 55603821 (5) Pancreatitis ICD Codes: K85.90 - Acute pancreatitis without necrosis or infection, unspecified SNOMED: 52572089 Status: stable Status Narrative Discussed with Dr. Shea Assessment/Plan Pancreatitis now resolved Hepatitis panel negative history of hernia repair Stable H&H Okay for DC per GI standpoint OB stool r/o GI bleed not collected monitor H&H, prn transfusions bowel regime ppi venofer renal diet fu labs outpatient GI procedures The patient was seen and examined at bedside and all new and available data was reviewed in the patients chart. I agree with the above findings, impression and plan. (Patient seen earlier today. Signature stamp does not reflect patient encounter time.). - Nikolas Shea MD Subjective Subjective Denies any constipation had complaint of lower abdominal pain, believes there is problem with his hernia mesh Denies any pain at this time Objective Last 24 Hour Vital Signs Date Time Temp Pulse Resp B/P (MAP) Pulse Ox O2 Delivery O2 Flow Rate FiO2 08/05/18 09:48 146/97 08/05/18 09:47 87 146/97 08/05/18 09:47 87 146/97 08/05/18 09:46 146/97 08/05/18 07:50 77 20 97 Room Air 21 08/05/18 07:40 77 20 97 Room Air 21 08/05/18 07:30 98 Room Air 21 08/05/18 07:30 80 20 Room Air 21 08/05/18 07:30 Room Air 21 08/05/18 04:00 96.8 78 20 127/78 (94) 99 08/05/18 02:45 96.8 08/05/18 01:26 74 20 99 Room Air 21 08/05/18 01:17 71 20 98 Room Air 21 08/05/18 00:00 96.8 80 18 117/72 (87) 95 08/04/18 20:38 81 121/72 1/22/19 20:24 97.5 81 17 121/72 (88) 93 08/04/18 20:19 Room Air 08/04/18 19:40 87 22 97 Room Air 21 08/04/18 19:39 Room Air 21 08/04/18 19:39 83 20 Room Air 21 08/04/18 19:39 94 Room Air 21 08/04/18 19:32 83 22 96 Room Air 21 08/04/18 17:17 117/71 08/04/18 16:00 98.2 77 20 117/71 (86) 100 08/04/18 13:31 77 20 98 Room Air 21 08/04/18 13:24 74 20 94 Room Air 21 08/04/18 12:00 98.2 88 20 133/91 (105) 95 Intake and Output 08/04/18 08/05/18 19:00 07:00 Intake Total 1060 ml Output Total 3600 ml Balance -2540 ml Intake Oral 1060 ml Output Urine Total 600 ml Hemodialysis UF 3000 ml # Voids 5 Height (Feet): 5 Height (Inches): 11.00 Weight (Pounds): 195 General Appearance: WD/WN, no apparent distress, alert Cardiovascular: normal rate Respiratory/Chest: normal breath sounds, no respiratory distress Abdominal Exam: normal bowel sounds, non tender, soft Extremities: normal range of motion, non-tender Daja Murdock NP Aug 05, 2018 11:03
[2018-08-05 12:00] VITALS: BP 139/78
--- NOTE | 2018-08-05 12:25 | Nephrology Progress Note ---
Assessment/Plan Problem List: (1) Renal failure (ARF), acute on chronic (2) Cocaine abuse (3) Acute exacerbation of CHF (congestive heart failure) (4) Hypertensive cardiomegaly with heart failure (5) Volume overload Assessment Acute on Chronic renal failure Anemia Elevated troponin Hypertensive renal and heart disease Cocaine abuse Cardiomyopathy Plan next HD 08/06 readjust bp meds Dc planning increase Neurontin transfuse one unit 07/[address] Moura 2D Echo 55% ej fx BRIDGETT kidneys * Mild fullness of the bilateral renal collecting systems without radiographically appreciable stone and observed bilateral ureteral jets. Findings may be related to mild bladder distention. Consider repeat exam after bladder decompression. monitor renal parameters Avoid nephrotoxics renal diet flomax Subjective ROS Limited/Unobtainable: No Objective Objective Last 24 Hour Vital Signs Date Time Temp Pulse Resp B/P (MAP) Pulse Ox O2 Delivery O2 Flow Rate FiO2 08/05/18 09:48 146/97 08/05/18 09:47 87 146/97 08/05/18 09:47 87 146/97 08/05/18 09:46 146/97 08/05/18 09:00 Room Air 08/05/18 08:00 97.0 88 19 146/97 (113) 99 08/05/18 07:50 77 20 97 Room Air 21 08/05/18 07:40 77 20 97 Room Air 21 08/05/18 07:30 98 Room Air 21 08/05/18 07:30 80 20 Room Air 21 08/05/18 07:30 Room Air 21 08/05/18 04:00 96.8 78 20 127/78 (94) 99 08/05/18 02:45 96.8 08/05/18 01:26 74 20 99 Room Air 21 08/05/18 01:17 71 20 98 Room Air 21 08/05/18 00:00 96.8 80 18 117/72 (87) 95 08/04/18 20:38 81 121/72 08/04/18 20:24 97.5 81 17 121/72 (88) 93 08/04/18 20:19 Room Air 08/04/18 19:40 87 22 97 Room Air 21 08/04/18 19:39 Room Air 21 08/04/18 19:39 83 20 Room Air 21 08/04/18 19:39 94 Room Air 21 08/04/18 19:32 83 22 96 Room Air 21 08/04/18 17:17 117/71 08/04/18 16:00 98.2 77 20 117/71 (86) 100 08/04/18 13:31 77 20 98 Room Air 21 08/04/18 13:24 74 20 94 Room Air 21 Intake and Output 08/04/18 08/05/18 19:00 07:00 Intake Total 1060 ml Output Total 3600 ml Balance -2540 ml Intake Oral 1060 ml Output Urine Total 600 ml Hemodialysis UF 3000 ml # Voids 5 Height (Feet): 5 Height (Inches): 11.00 Weight (Pounds): 195 General Appearance: no apparent distress Objective no change Richar Cm MD Aug 05, 2018 12:25
--- NOTE | 2018-08-05 12:32 | Cardiac Electrophysiology PN ---
Assessment/Plan Assessment/Plan 1. Troponin leak in the setting of cocaine use and renal failure. Levels are flat and low Avoid beta-pablo in view of active cocaine use. On aspirin and Lipitor. EF 45%. No CP 2. Hypertension. On Cardizem 360 daily, Metoprolol 100 bid, Imdur 60, Lisinopril 20 bid and HD 3. End-stage renal disease and hyperkalemia on HD by Dr. Cm 4. Substance use with cocaine. Avoid senior care beta-blockers. 5. Recent pneumonia. 6. Congestive heart failure with EF 45% 7. Anemia s/p PRBCs . 8. Placement pending today DW RN Subjective Subjective No CP or SOB. DC planning in progress Objective Last 24 Hour Vital Signs Date Time Temp Pulse Resp B/P (MAP) Pulse Ox O2 Delivery O2 Flow Rate FiO2 08/05/18 09:48 146/97 08/05/18 09:47 87 146/97 08/05/18 09:47 87 146/97 08/05/18 09:46 146/97 08/05/18 09:00 Room Air 08/05/18 08:00 97.0 88 19 146/97 (113) 99 08/05/18 07:50 77 20 97 Room Air 21 08/05/18 07:40 77 20 97 Room Air 21 08/05/18 07:30 98 Room Air 21 08/05/18 07:30 80 20 Room Air 21 08/05/18 07:30 Room Air 21 08/05/18 04:00 96.8 78 20 127/78 (94) 99 08/05/18 02:45 96.8 08/05/18 01:26 74 20 99 Room Air 21 08/05/18 01:17 71 20 98 Room Air 21 08/05/18 00:00 96.8 80 18 117/72 (87) 95 08/04/18 20:38 81 121/72 08/04/18 20:24 97.5 81 17 121/72 (88) 93 08/04/18 20:19 Room Air 08/04/18 19:40 87 22 97 Room Air 21 08/04/18 19:39 Room Air 21 08/04/18 19:39 83 20 Room Air 21 08/04/18 19:39 94 Room Air 21 08/04/18 19:32 83 22 96 Room Air 21 08/04/18 17:17 117/71 08/04/18 16:00 98.2 77 20 117/71 (86) 100 08/04/18 13:31 77 20 98 Room Air 21 08/04/18 13:24 74 20 94 Room Air 21 Intake and Output 08/04/18 08/05/18 19:00 07:00 Intake Total 1060 ml Output Total 3600 ml Balance -2540 ml Intake Oral 1060 ml Output Urine Total 600 ml Hemodialysis UF 3000 ml # Voids 5 Objective HEAD AND NECK: No JVD. LUNGS: Clear CARDIOVASCULAR: Regular S1 and S2 with no gallop or murmur. ABDOMEN: Soft. EXTREMITIES: 1 plus pitting edema. German Gray MD Aug 05, 2018 12:32
--- NOTE | 2018-08-05 12:40 | Pulmonology Progress Note ---
Assessment/Plan Problems: (1) Acute exacerbation of CHF (congestive heart failure) (2) Hypertensive cardiomegaly with heart failure (3) ACS (acute coronary syndrome) (4) Cocaine abuse (5) ARF (acute renal failure) (6) DDD (degenerative disc disease) (7) Epistaxis (8) Hypercapnic respiratory failure Assessment/Plan ASSESSMENT: The patient is a 58-year-old male with history of cocaine and tobacco abuse, congestive heart failure, and renal impairment, presenting with decompensated heart failure and abnormal renal function with marked uremia. He has previously been told he needs dialysis. He is now being admitted for acute coronary syndrome and likely need for dialysis. PROBLEM LIST: 1. Congestive heart failure with acute decompensated heart failure. 2. Abnormal renal function, likely cardiorenal syndrome now on HD 3. History of cocaine abuse with current positive tox screen. 4. Anemia/DARSHANA 5. Hypertension with hypertensive urgency. 6. Acute coronary syndrome/non-ST elevation myocardial infarction. 7. Acute on chronic LBP with radiculopathy ---> DDD/SS TREATMENT PLAN: -BiPAP 12/5 qHS and PRN - DECLINES -Titrate FiO2 -PRN DUOnebs -HD per renal with UF as able -Control BP -F/U cards and renal recs -F/U heme recs -F/U GI recs ---> plan for outpatient EGD/colo -DVT Px: hep SQ -Pain control/supportive care - minimize narcotics/sedatives -F/U pain management recs -Appreciate psych eval, has capacity, F/U recs -SW assistance in placement Subjective Allergies: Coded Allergies: No Known Allergies (Unverified , 07/08/18) Subjective Events reviewed, AFVSS, stable O2 needs Feels the same, no sig SOB, no CP, no F/C Objective Last 24 Hour Vital Signs Date Time Temp Pulse Resp B/P (MAP) Pulse Ox O2 Delivery O2 Flow Rate FiO2 08/05/18 09:48 146/97 08/05/18 09:47 87 146/97 08/05/18 09:47 87 146/97 08/05/18 09:46 146/97 08/05/18 09:00 Room Air 08/05/18 08:00 97.0 88 19 146/97 (113) 99 08/05/18 07:50 77 20 97 Room Air 21 08/05/18 07:40 77 20 97 Room Air 21 08/05/18 07:30 98 Room Air 21 08/05/18 07:30 80 20 Room Air 21 08/05/18 07:30 Room Air 21 08/05/18 04:00 96.8 78 20 127/78 (94) 99 08/05/18 02:45 96.8 08/05/18 01:26 74 20 99 Room Air 21 08/05/18 01:17 71 20 98 Room Air 21 08/05/18 00:00 96.8 80 18 117/72 (87) 95 08/04/18 20:38 81 121/72 08/04/18 20:24 97.5 81 17 121/72 (88) 93 08/04/18 20:19 Room Air 08/04/18 19:40 87 22 97 Room Air 21 08/04/18 19:39 Room Air 21 08/04/18 19:39 83 20 Room Air 21 08/04/18 19:39 94 Room Air 21 08/04/18 19:32 83 22 96 Room Air 21 08/04/18 17:17 117/71 08/04/18 16:00 98.2 77 20 117/71 (86) 100 08/04/18 13:31 77 20 98 Room Air 21 08/04/18 13:24 74 20 94 Room Air 21 Intake and Output 08/04/18 08/05/18 19:00 07:00 Intake Total 1060 ml Output Total 3600 ml Balance -2540 ml Intake Oral 1060 ml Output Urine Total 600 ml Hemodialysis UF 3000 ml # Voids 5 General Appearance: WD/WN, no acute distress HEENT: normocephalic, atraumatic, anicteric, mucous membranes moist Respiratory/Chest: chest wall non-tender, lungs clear, normal breath sounds, no respiratory distress, no accessory muscle use Cardiovascular: normal peripheral pulses, normal rate, regular rhythm Abdomen: normal bowel sounds, soft, non tender, no organomegaly, non distended , no mass Extremities: no cyanosis, no clubbing, no edema Current Medications Medications (Trade) Dose Ordered Sig/Harish Route PRN Reason Start Time Stop Time Status Last Admin Dose Admin Acetaminophen (Tylenol) 650 mg Q4H PRN ORAL Mild Pain/Temp > 100.5 07/26/18 22:00 08/25/18 21:59 07/27/18 02:11 Acetaminophen/ Hydrocodone Bitart ([place] 10/325) 1 tab Q4H PRN ORAL Severe Pain (Pain Scale 7-10) 08/03/18 19:45 08/10/18 19:44 08/05/18 06:39 Albuterol/ Ipratropium (Albuterol/ Ipratropium) 3 ml Q4H PRN HHN Shortness of Breath 08/01/18 16:30 08/06/18 16:29 Albuterol/ Ipratropium (Albuterol/ Ipratropium) 3 ml Q6HRT HHN 08/01/18 16:30 08/06/18 16:29 08/05/18 07:35 Aspirin (ASA) 81 mg DAILY ORAL 07/27/18 09:00 08/08/18 08:59 08/05/18 09:47 Baclofen (Lioresal) 10 mg Q6H PRN ORAL spasm 08/04/18 10:30 09/03/18 10:29 08/04/18 20:45 Chlorhexidine Gluconate (Laurel-Hex 2%) 1 applic DAILY@2000 TOPIC 07/27/18 20:00 08/25/18 19:59 08/04/18 20:38 Clonidine HCl (Catapres Tab) 0.1 mg Q4H PRN ORAL bp over 165 syst 07/26/18 22:00 08/25/18 21:59 07/31/18 12:59 Dextrose (Dextrose 50%) 25 ml Q30M PRN IV Hypoglycemia 07/26/18 22:00 08/07/18 16:29 Dextrose (Dextrose 50%) 50 ml Q30M PRN IV Hypoglycemia 07/26/18 22:00 08/07/18 16:29 Diltiazem HCl (Cardizem CD) 360 mg DAILY ORAL 08/01/18 09:00 08/25/18 08:59 08/05/18 09:47 Diphenhydramine HCl (Benadryl) 25 mg Q6H PRN ORAL Itching/Pruritis 07/26/18 22:30 08/07/18 16:29 08/05/18 02:13 Epoetin [place] (Procrit (for ESRD on dialysis)) 8,000 units FRI-FRI-FRI SUBQ 07/29/18 21:00 08/28/18 20:59 08/03/18 21:23 Famotidine (Pepcid) 20 mg BID ORAL 08/04/18 18:00 09/03/18 17:59 08/05/18 09:47 Gabapentin (Neurontin) 300 mg THREE TIMES A DAY ORAL 07/27/18 09:00 08/17/18 17:59 08/05/18 09:48 Heparin Sodium (Porcine) (Heparin 5000 units/ml) 5,000 units EVERY 12 HOURS SUBQ 07/27/18 09:00 08/14/18 21:59 08/05/18 09:55 Isosorbide Mononitrate (Imdur) 60 mg DAILY ORAL 07/27/18 09:00 08/11/18 08:59 08/05/18 09:48 Lisinopril (Prinivil) 20 mg BID ORAL 07/27/18 09:00 08/19/18 08:59 08/05/18 09:46 Magnesium Oxide (Mag-Ox 400mg) 400 mg THREE TIMES A DAY ORAL 08/02/18 13:00 09/01/18 12:59 08/05/18 09:47 Metoprolol Tartrate (Lopressor) 100 mg Q12HR ORAL 07/27/18 09:00 08/22/18 20:59 08/05/18 09:47 Polyethylene Glycol (Miralax) 17 gm DAILYPRN PRN ORAL Constipation 08/04/18 16:15 09/03/18 16:14 Sevelamer Carbonate (Renvela) 1,600 mg THREE TIMES A DAY ORAL 08/04/18 13:00 08/08/18 17:59 08/05/18 09:47 Tamsulosin HCl (Flomax) 0.4 mg QHS ORAL 07/27/18 21:00 08/09/18 12:52 08/04/18 20:38 Edgard Webb MD Aug 05, 2018 12:40
[2018-08-05 16:00] VITALS: BP 145/90
--- NOTE | 2018-08-05 19:35 | General Progress Note ---
Assessment/Plan Assessment/Plan # Anemia of iron deficiency, multifactorial, curtis on ckd --> Anemia w/u has been reviewed, no eric noted --> No evidence of hemolysis is noted, peripheral smear is wnl --> Hgb goal >7. Transfuse prn. --> continue on epo sq, reviewed renal recs --> on iron iv, has been given 5 doses of venofer 08/05 --> s/p blood transfusion # Congestive heart failure with acute decompensated heart failure. --> per cards management --> In tele unit --> on diuresis # Curtis, likely cardiorenal syndrome. --> Nephrology is following appreciate recs --> HD 08/04/18 --> BRIDGETT kidneys with minimal fullness, seen by renal, echogenicity is wnl # History of cocaine abuse with current positive tox screen. --> recommend cessation # Hypertension with hypertensive urgency. --> On Norvasc 5 mg bid, Hydralazine,Imdur and Clonidine patch as needed --> Avoid beta-blockers for active cocaine us # Acute coronary syndrome/non-ST elevation myocardial infarction. --> per cards The date and time note entered does not reflect time and date patient was seen. GREATLY APPRECIATE CONSULTATION. Subjective Constitutional: Denies: no symptoms, chills, diaphoresis, fever, malaise, weakness, other HEENT: Denies: no symptoms, eye pain, blurred vision, tearing, double vision, ear pain, ear discharge, nose pain, nose congestion, throat pain, throat swelling, mouth pain, mouth swelling, other Respiratory: Denies: no symptoms, cough, orthopnea, shortness of breath, SOB with excertion, SOB at rest, sputum, stridor, wheezing, other Gastrointestinal/Abdominal: Denies: no symptoms, abdomen distended, abdominal pain, black stools, tarry stools, blood in stool, constipated, diarrhea, difficulty swallowing, nausea, poor appetite, poor fluid intake, rectal bleeding , vomiting, other Genitourinary: Denies: no symptoms, burning, discharge, frequency, flank pain, hematuria, incontinence, pain, urgency, other Neurologic/Psychiatric: Denies: no symptoms, anxiety, depressed, emotional problems, headache, numbness, paresthesia, pre-existing deficit, seizure, tingling, tremors, weakness, other Allergies: Coded Allergies: No Known Allergies (Unverified , 07/08/18) Subjective 07/12: no events, cr trending, h/h stable, on epo 07/14: transfuse one unit 07/13, diruresed, refused mendez, seen by cards, bp better 07/15 : Pt is seen in the room, awake and alert, S/P blood transfusion, refusing HD 07/16 : Pt is awake and resting in bed. waiting on sister to make HD decision, no events 07/17 Pt is seen in the room,awake and alert, appears to be agreeable for placement of dialysis cath and dialysis . 07/18: Pt is seen in the room, No CP or SOB. Had HD today. 07/19: Pt is awake and resting in bed. Denies pain, SOB or fevers and chills. Has HD scheduled for 07/20/18, currently stable. 07/20: received hand held nebulizer, no other events, no f.c 07/21 : Pt seen by bedside, continues on breathing treatment, HD 07/22/18, no events 07/22: pending snf placement and outpatient hd 07/23: awake and resting in bed. no acute events, waiting placement and outpatient HD 07/24: no major events, waiting placement, seen by gi, recs reviewed, no complaints, on epo 07/25: CXR for patient c/o sob. O2 2L via NC administered. patient is A/A/Ox4. patient BLE edematous 07/26: Continues on oxygen of 3L/min via N/C. no acute respiratory distress is noted. Permacath to right chest for HD is intact 07/27: awake and comfortable, alert and oriented , next HD 07/28 07/28: Pt is seen by bedside, bipap is D/C, HD scheduled today, no events 07/29: Pt is awake and calm, Denies pain, SOB or fevers and chills, next HD 07/30. 07/30: hd pending, no major events, some sob 07/31: no complaints this am, r permacath in chest without issue, placement pending 08/04: pt is seen by bedside, awake, comfortable, waiting HD. 08/05: bp is much better controlled this am, no fevers or chills, refusing some labs Objective Last 24 Hour Vital Signs Date Time Temp Pulse Resp B/P (MAP) Pulse Ox O2 Delivery O2 Flow Rate FiO2 08/05/18 18:25 145/90 08/05/18 16:00 97.5 85 18 145/90 (108) 97 08/05/18 13:23 78 18 100 Room Air 21 08/05/18 13:15 80 20 99 Room Air 21 08/05/18 12:00 97.7 86 19 139/78 (98) 100 08/05/18 09:48 146/97 08/05/18 09:47 87 146/97 08/05/18 09:47 87 146/97 08/05/18 09:46 146/97 08/05/18 09:00 Room Air 08/05/18 08:00 97.0 88 19 146/97 (113) 99 08/05/18 07:50 77 20 97 Room Air 21 08/05/18 07:40 77 20 97 Room Air 21 08/05/18 07:30 98 Room Air 21 08/05/18 07:30 80 20 Room Air 21 08/05/18 07:30 Room Air 21 08/05/18 04:00 96.8 78 20 127/78 (94) 99 08/05/18 02:45 96.8 08/05/18 01:26 74 20 99 Room Air 21 08/05/18 01:17 71 20 98 Room Air 21 08/05/18 00:00 96.8 80 18 117/72 (87) 95 08/04/18 20:38 81 121/72 08/04/18 20:24 97.5 81 17 121/72 (88) 93 08/04/18 20:19 Room Air 08/04/18 19:40 87 22 97 Room Air 21 08/04/18 19:39 Room Air 21 08/04/18 19:39 83 20 Room Air 21 08/04/18 19:39 94 Room Air 21 Intake and Output 08/04/18 08/05/18 19:00 07:00 Intake Total 1060 ml Output Total 3600 ml Balance -2540 ml Intake Oral 1060 ml Output Urine Total 600 ml Hemodialysis UF 3000 ml # Voids 5 Height (Feet): 5 Height (Inches): 11.00 Weight (Pounds): 195 Objective Physical Exam General Appearance: A+O x2 NAD HEENT: normocephalic, atraumatic, R permacath Neck: non-tender, normal alignment Respiratory/Chest: chest wall non-tender, lungs clear Cardiovascular/Chest: normal peripheral pulses, normal rate Abdomen: normal bowel sounds, non tender Extremities: normal range of motion Shane Mary MD Aug 05, 2018 19:35
[2018-08-05 20:00] VITALS: BP 137/87
[2018-08-05] MEDS: Iron Sucrose 100 MG in NS 55 ML IV SCH (20:58)
[2018-08-05] MEDS: Tamsulosin 0.4mg cap ORAL SCH (20:58)
[2018-08-05] MEDS: Dyna-Hex 2% Top Sol 2oz TOPIC SCH (20:58)
[2018-08-05] MEDS: Epogen (for ESRD on dialysis) SUBQ SCH (20:59)
[2018-08-06] VITALS: BP 131/88
[2018-08-06] MEDS: Albuterol/Ipratropium 3ml neb HHN SCH ×3 (01:00→14:29)
[2018-08-06] MEDS: HYDROcodone/Acetamin 10/325 tab ORAL PRN ×2 (03:36→08:52)
[2018-08-06 04:09] VITALS: BP 143/84
[2018-08-06 07:18] LABS: ANION GAP 8 mmol/L (5-15); BLOOD UREA NITROGEN 41 mg/dL (7-18); CARBON DIOXIDE 28 MMOL/L (21-32); CHLORIDE 100 MMOL/L (98-107); CREATININE 6.4 MG/DL (0.55-1.30); POTASSIUM 5.5 MMOL/L (3.5-5.1); SODIUM 136 MMOL/L (136-145)
[2018-08-06 07:34] LABS: BASOPHILS % (AUTO) 1.4 % (0.0-2.0); EOSINOPHILS % (AUTO) 16.5 % (0.0-3.0); HEMATOCRIT 31.3 % (42.0-52.0); HEMOGLOBIN 9.6 G/DL (14.2-18.0); MEAN CORPUSCULAR VOLUME 100 FL (80-99); MONOCYTES % (AUTO) 14.4 % (1.0-10.0); NEUTROPHILS % (AUTO) 52.7 % (45.0-75.0); PLATELET COUNT 214 K/UL (150-450); RED BLOOD COUNT 3.14 M/UL (4.70-6.10); RED CELL DISTRIBUTION WIDTH 15.2 % (11.6-14.8); WHITE BLOOD COUNT 6.7 K/UL (4.8-10.8)
[2018-08-06 08:00] VITALS: BP 135/82
--- NOTE | 2018-08-06 08:27 | General Progress Note ---
Assessment/Plan Assessment/Plan (1) Lumbar DDD (2) Lumbar Spondylosis (3) Cocaine Abuse Patient will be continued on Baclofen and [place] as needed. D/w Dr. Rosado and he concurred. Subjective Date patient seen: Aug 06, 2018 Time patient seen: 07:00 - am Allergies: Coded Allergies: No Known Allergies (Unverified , 07/08/18) Subjective REVIEW OF SYSTEMS: Denies rash, fever, chills, sweating, dizziness, drowsiness, blurred vision, or change in weight. No chest pain. No nausea, vomiting, diarrhea, or blood in the stool or urine. No bowel or bladder incontinence. He is complaining of low back pain. SUBJECTIVE: Patient has been in bed and continues to c/o pain which has been tolerated on the norco. He has no new complaints. Objective Last 24 Hour Vital Signs Date Time Temp Pulse Resp B/P (MAP) Pulse Ox O2 Delivery O2 Flow Rate FiO2 08/06/18 04:09 97.7 84 20 143/84 (103) 95 08/06/18 04:06 97.7 08/06/18 01:41 Room Air 21 08/06/18 01:40 Room Air 21 08/06/18 00:00 98.0 76 20 131/88 (102) 96 08/05/18 20:58 76 137/87 08/05/18 20:33 76 20 99 Nasal Cannula 2.0 28 08/05/18 20:18 Room Air 08/05/18 20:00 98.0 73 19 137/87 (104) 97 08/05/18 19:56 73 20 98 Nasal Cannula 2.0 28 08/05/18 19:56 Nasal Cannula 2.0 28 08/05/18 19:55 97 Nasal Cannula 2.0 28 08/05/18 19:54 73 20 Nasal Cannula 2.0 28 08/05/18 18:25 145/90 08/05/18 16:00 97.5 85 18 145/90 (108) 97 08/05/18 13:23 78 18 100 Room Air 21 08/05/18 13:15 80 20 99 Room Air 21 08/05/18 12:00 97.7 86 19 139/78 (98) 100 08/05/18 09:48 146/97 08/05/18 09:47 87 146/97 08/05/18 09:47 87 146/97 08/05/18 09:46 146/97 08/05/18 09:00 Room Air Intake and Output 08/05/18 08/06/18 18:59 06:59 Intake Total 240 ml 240 ml Balance 240 ml 240 ml Intake Oral 240 ml 240 ml # Voids 4 # Bowel Movements 2 Laboratory Tests 08/05/18 21:00: HIV (1&2) Antibody Rapid Negative 08/06/18 05:35: White Blood Count 6.7, Red Blood Count 3.14L, Hemoglobin 9.6L, Hematocrit 31.3L , Mean Corpuscular Volume 100H, Mean Corpuscular Hemoglobin 30.7, Mean Corpuscular Hemoglobin Concent 30.8L, Red Cell Distribution Width 15.2H, Platelet Count 214, Mean Platelet Volume 6.9, Neutrophils (%) (Auto) 52.7, Lymphocytes (%) (Auto) 15.0L, Monocytes (%) (Auto) 14.4H, Eosinophils (%) (Auto ) 16.5H, Basophils (%) (Auto) 1.4, Sodium Level 136, Potassium Level 5.5H, Chloride Level 100, Carbon Dioxide Level 28, Anion Gap 8, Blood Urea Nitrogen 41H, Creatinine 6.4H, Estimat Glomerular Filtration Rate 10.9, Glucose Level 92 , Calcium Level 9.0 Height (Feet): 5 Height (Inches): 11.00 Weight (Pounds): 194 Objective GENERAL: Alert, awake, and oriented. LUNGS: Decreased breath sounds bilaterally. HEART: S1 and S2 regular. ABDOMEN: Soft, nontender. EXTREMITIES: No CCE NEURO: No changes. James Ramirez Aug 06, 2018 08:27
[2018-08-06] MEDS: Magnesium Oxide 400mg tab ORAL SCH ×3 (08:50→17:27)
[2018-08-06] MEDS: dilTIAZem HCl CD 180mg cap ORAL SCH (08:50)
[2018-08-06] MEDS: Imdur 30mg tab ORAL SCH (08:50)
[2018-08-06] MEDS: Aspirin Baby 81mg ORAL SCH (08:51)
[2018-08-06] MEDS: Lisinopril 20mg tab ORAL SCH ×2 (08:51→17:27)
[2018-08-06] MEDS: Heparin 5000 units/ml inj SUBQ SCH ×2 (08:53→21:00)
--- NOTE | 2018-08-06 10:32 | Nephrology Progress Note ---
Assessment/Plan Problem List: (1) Renal failure (ARF), acute on chronic (2) Cocaine abuse (3) Acute exacerbation of CHF (congestive heart failure) (4) Hypertensive cardiomegaly with heart failure (5) Volume overload Assessment Acute on Chronic renal failure Anemia Elevated troponin Hypertensive renal and heart disease Cocaine abuse Cardiomyopathy Plan next HD 08/06 in progress readjust bp meds and pain meds Dc planning in progress transfuse one unit 07/[address] Moura 2D Echo 55% ej fx BRIDGETT kidneys * Mild fullness of the bilateral renal collecting systems without radiographically appreciable stone and observed bilateral ureteral jets. Findings may be related to mild bladder distention. Consider repeat exam after bladder decompression. monitor renal parameters Avoid nephrotoxics renal diet flomax Subjective ROS Limited/Unobtainable: No Constitutional: Reports: malaise, other - complains of non sepcific generalized pain Objective Objective Last 24 Hour Vital Signs Date Time Temp Pulse Resp B/P (MAP) Pulse Ox O2 Delivery O2 Flow Rate FiO2 08/06/18 09:00 Room Air 08/06/18 08:51 78 20 99 Room Air 21 08/06/18 08:51 80 135/82 08/06/18 08:51 135/82 08/06/18 08:50 80 135/82 08/06/18 08:50 135/82 08/06/18 08:49 79 20 98 Room Air 21 08/06/18 08:49 Room Air 21 08/06/18 08:49 98 Room Air 21 08/06/18 08:49 79 18 Room Air 21 08/06/18 08:00 98.0 80 20 135/82 (99) 97 08/06/18 04:09 97.7 84 20 143/84 (103) 95 08/06/18 04:06 97.7 08/06/18 01:41 Room Air 21 08/06/18 01:40 Room Air 21 08/06/18 00:00 98.0 76 20 131/88 (102) 96 08/05/18 20:58 76 137/87 08/05/18 20:33 76 20 99 Nasal Cannula 2.0 28 08/05/18 20:18 Room Air 08/05/18 20:00 98.0 73 19 137/87 (104) 97 08/05/18 19:56 73 20 98 Nasal Cannula 2.0 28 08/05/18 19:56 Nasal Cannula 2.0 28 08/05/18 19:55 97 Nasal Cannula 2.0 28 08/05/18 19:54 73 20 Nasal Cannula 2.0 28 08/05/18 18:25 145/90 08/05/18 16:00 97.5 85 18 145/90 (108) 97 08/05/18 13:23 78 18 100 Room Air 21 08/05/18 13:15 80 20 99 Room Air 21 08/05/18 12:00 97.7 86 19 139/78 (98) 100 Intake and Output 08/05/18 08/06/18 19:00 07:00 Intake Total 240 ml 240 ml Balance 240 ml 240 ml Intake Oral 240 ml 240 ml # Voids 4 # Bowel Movements 2 Current Medications Medications (Trade) Dose Ordered Sig/Harish Route PRN Reason Start Time Stop Time Status Last Admin Dose Admin Acetaminophen (Tylenol) 650 mg Q4H PRN ORAL Mild Pain/Temp > 100.5 07/26/18 22:00 08/25/18 21:59 07/27/18 02:11 Acetaminophen/ Hydrocodone Bitart ([place] 10/325) 1 tab Q4H PRN ORAL Severe Pain (Pain Scale 7-10) 08/03/18 19:45 08/10/18 19:44 08/06/18 08:52 Albuterol/ Ipratropium (Albuterol/ Ipratropium) 3 ml Q4H PRN HHN Shortness of Breath 08/01/18 16:30 08/06/18 16:29 Albuterol/ Ipratropium (Albuterol/ Ipratropium) 3 ml Q6HRT HHN 08/01/18 16:30 08/06/18 16:29 08/06/18 08:48 Aspirin (ASA) 81 mg DAILY ORAL 07/27/18 09:00 08/08/18 08:59 08/06/18 08:51 Baclofen (Lioresal) 10 mg Q6H PRN ORAL spasm 08/04/18 10:30 09/03/18 10:29 08/06/18 00:18 Chlorhexidine Gluconate (Laurel-Hex 2%) 1 applic DAILY@2000 TOPIC 07/27/18 20:00 08/25/18 19:59 08/05/18 20:58 Clonidine HCl (Catapres Tab) 0.1 mg Q4H PRN ORAL bp over 165 syst 07/26/18 22:00 08/25/18 21:59 07/31/18 12:59 Dextrose (Dextrose 50%) 25 ml Q30M PRN IV Hypoglycemia 07/26/18 22:00 08/07/18 16:29 Dextrose (Dextrose 50%) 50 ml Q30M PRN IV Hypoglycemia 07/26/18 22:00 08/07/18 16:29 Diltiazem HCl (Cardizem CD) 360 mg DAILY ORAL 08/01/18 09:00 08/25/18 08:59 08/06/18 08:50 Diphenhydramine HCl (Benadryl) 25 mg Q6H PRN ORAL Itching/Pruritis 07/26/18 22:30 08/07/18 16:29 08/06/18 00:18 Epoetin Juan Pablo (Procrit (for ESRD on dialysis)) 8,000 units FRI-FRI-FRI SUBQ 07/29/18 21:00 08/28/18 20:59 08/05/18 20:59 Famotidine (Pepcid) 20 mg BID ORAL 08/04/18 18:00 09/03/18 17:59 08/06/18 08:50 Gabapentin (Neurontin) 300 mg THREE TIMES A DAY ORAL 07/27/18 09:00 08/17/18 17:59 08/06/18 08:50 Heparin Sodium (Porcine) (Heparin 5000 units/ml) 5,000 units EVERY 12 HOURS SUBQ 07/27/18 09:00 08/14/18 21:59 08/06/18 08:53 Iron Sucrose 100 mg/Sodium Chloride 60 ml @ 240 mls/hr BEDTIME IV 08/05/18 21:00 08/09/18 21:14 08/05/18 20:58 Isosorbide Mononitrate (Imdur) 60 mg DAILY ORAL 07/27/18 09:00 08/11/18 08:59 08/06/18 08:50 Lisinopril (Prinivil) 20 mg BID ORAL 07/27/18 09:00 08/19/18 08:59 08/06/18 08:51 Magnesium Oxide (Mag-Ox 400mg) 400 mg THREE TIMES A DAY ORAL 08/02/18 13:00 09/01/18 12:59 08/06/18 08:50 Metoprolol Tartrate (Lopressor) 100 mg Q12HR ORAL 07/27/18 09:00 08/22/18 20:59 08/06/18 08:51 Polyethylene Glycol (Miralax) 17 gm DAILYPRN PRN ORAL Constipation 08/04/18 16:15 09/03/18 16:14 Sevelamer Carbonate (Renvela) 1,600 mg THREE TIMES A DAY ORAL 08/04/18 13:00 08/08/18 17:59 08/06/18 08:51 Tamsulosin HCl (Flomax) 0.4 mg QHS ORAL 07/27/18 21:00 08/09/18 12:52 08/05/18 20:58 Laboratory Tests 08/05/18 21:00: HIV (1&2) Antibody Rapid Negative 08/06/18 05:35: White Blood Count 6.7, Red Blood Count 3.14L, Hemoglobin 9.6L, Hematocrit 31.3L , Mean Corpuscular Volume 100H, Mean Corpuscular Hemoglobin 30.7, Mean Corpuscular Hemoglobin Concent 30.8L, Red Cell Distribution Width 15.2H, Platelet Count 214, Mean Platelet Volume 6.9, Neutrophils (%) (Auto) 52.7, Lymphocytes (%) (Auto) 15.0L, Monocytes (%) (Auto) 14.4H, Eosinophils (%) (Auto ) 16.5H, Basophils (%) (Auto) 1.4, Sodium Level 136, Potassium Level 5.5H, Chloride Level 100, Carbon Dioxide Level 28, Anion Gap 8, Blood Urea Nitrogen 41H, Creatinine 6.4H, Estimat Glomerular Filtration Rate 10.9, Glucose Level 92 , Calcium Level 9.0 Height (Feet): 5 Height (Inches): 11.00 Weight (Pounds): 194 General Appearance: no apparent distress Cardiovascular: normal rate Respiratory/Chest: lungs clear Abdomen: soft Objective no other change Richar Cm MD Aug 06, 2018 10:32
[2018-08-06 12:00] VITALS: BP 146/85
--- NOTE | 2018-08-06 12:45 | GI Progress Note ---
Assessment/Plan Problems: (1) Macrocytic anemia ICD Codes: D53.9 - Nutritional anemia, unspecified SNOMED: 58224560 (2) Iron deficiency ICD Codes: E61.1 - Iron deficiency SNOMED: 11309344 (3) Constipation ICD Codes: K59.00 - Constipation, unspecified SNOMED: 76727258 (4) Cocaine abuse ICD Codes: F14.10 - Cocaine abuse, uncomplicated SNOMED: 13102908 (5) Pancreatitis ICD Codes: K85.90 - Acute pancreatitis without necrosis or infection, unspecified SNOMED: 17067692 Status: stable Status Narrative Discussed with Dr. Shea Assessment/Plan Pancreatitis now resolved Hepatitis panel negative history of hernia repair Stable H&H Okay for DC per GI standpoint OB stool r/o GI bleed not collected monitor H&H, prn transfusions bowel regime ppi venofer renal diet fu labs outpatient GI procedures The patient was seen and examined at bedside and all new and available data was reviewed in the patients chart. I agree with the above findings, impression and plan. (Patient seen earlier today. Signature stamp does not reflect patient encounter time.). - Nikolas Shea MD Subjective Subjective Denies any constipation had complaint of lower abdominal pain, believes there is problem with his hernia mesh Denies any pain at this time Objective Last 24 Hour Vital Signs Date Time Temp Pulse Resp B/P (MAP) Pulse Ox O2 Delivery O2 Flow Rate FiO2 08/06/18 09:00 Room Air 08/06/18 08:51 78 20 99 Room Air 08/06/18 08:51 80 135/82 08/06/18 08:51 135/82 08/06/18 08:50 80 135/82 08/06/18 08:50 135/82 08/06/18 08:49 79 20 98 Room Air 21 08/06/18 08:49 Room Air 21 08/06/18 08:49 98 Room Air 21 08/06/18 08:49 79 18 Room Air 08/06/18 08:00 98.0 80 20 135/82 (99) 97 08/06/18 04:09 97.7 84 20 143/84 (103) 95 08/06/18 04:06 97.7 08/06/18 01:41 Room Air 08/06/18 01:40 Room Air 21 08/06/18 00:00 98.0 76 20 131/88 (102) 96 08/05/18 20:58 76 137/87 08/05/18 20:33 76 20 99 Nasal Cannula 2.0 28 08/05/18 20:18 Room Air 08/05/18 20:00 98.0 73 19 137/87 (104) 97 08/05/18 19:56 73 20 98 Nasal Cannula 2.0 28 08/05/18 19:56 Nasal Cannula 2.0 28 08/05/18 19:55 97 Nasal Cannula 2.0 28 08/05/18 19:54 73 20 Nasal Cannula 2.0 28 08/05/18 18:25 145/90 08/05/18 16:00 97.5 85 18 145/90 (108) 97 08/05/18 13:23 78 18 100 Room Air 21 08/05/18 13:15 80 20 99 Room Air 21 Intake and Output 08/05/18 08/06/18 19:00 07:00 Intake Total 240 ml 240 ml Balance 240 ml 240 ml Intake Oral 240 ml 240 ml # Voids 4 # Bowel Movements 2 Laboratory Tests Test 08/05/18 21:00 08/06/18 05:35 HIV (1&2) Antibody Rapid Negative (NEGATIVE) White Blood Count 6.7 K/UL (4.8-10.8) Red Blood Count 3.14 M/UL (4.70-6.10) L Hemoglobin 9.6 G/DL (14.2-18.0) L Hematocrit 31.3 % (42.0-52.0) L Mean Corpuscular Volume 100 FL (80-99) H Mean Corpuscular Hemoglobin 30.7 PG (27.0-31.0) Mean Corpuscular Hemoglobin Concent 30.8 G/DL (32.0-36.0) L Red Cell Distribution Width 15.2 % (11.6-14.8) H Platelet Count 214 K/UL (150-450) Mean Platelet Volume 6.9 FL (6.5-10.1) Neutrophils (%) (Auto) 52.7 % (45.0-75.0) Lymphocytes (%) (Auto) 15.0 % (20.0-45.0) L Monocytes (%) (Auto) 14.4 % (1.0-10.0) H Eosinophils (%) (Auto) 16.5 % (0.0-3.0) H Basophils (%) (Auto) 1.4 % (0.0-2.0) Sodium Level 136 MMOL/L (136-145) Potassium Level 5.5 MMOL/L (3.5-5.1) H Chloride Level 100 MMOL/L (98-107) Carbon Dioxide Level 28 MMOL/L (21-32) Anion Gap 8 mmol/L (5-15) Blood Urea Nitrogen 41 mg/dL (7-18) H Creatinine 6.4 MG/DL (0.55-1.30) H Estimat Glomerular Filtration Rate 10.9 mL/min (>60) Glucose Level 92 MG/DL (74-106) Calcium Level 9.0 MG/DL (8.5-10.1) Height (Feet): 5 Height (Inches): 11.00 Weight (Pounds): 194 General Appearance: WD/WN, no apparent distress, alert Cardiovascular: normal rate Respiratory/Chest: normal breath sounds, no respiratory distress Abdominal Exam: normal bowel sounds, non tender, soft Extremities: normal range of motion, non-tender Daja Murdock NP Aug 06, 2018 12:45
--- NOTE | 2018-08-06 13:44 | General Progress Note ---
Assessment/Plan Assessment/Plan # Anemia of iron deficiency, multifactorial, curtis on ckd --> Anemia w/u has been reviewed, no eric noted --> No evidence of hemolysis is noted, peripheral smear is wnl --> Hgb goal >7. Transfuse prn. --> continue on epo sq, reviewed renal recs --> on iron iv, has been given 5 doses of venofer 08/05 --> s/p blood transfusion # Congestive heart failure with acute decompensated heart failure. --> per cards management --> In tele unit --> on diuresis # Curtis, likely cardiorenal syndrome. --> Nephrology is following appreciate recs --> HD 08/04/18 --> BRIDGETT kidneys with minimal fullness, seen by renal, echogenicity is wnl # History of cocaine abuse with current positive tox screen. --> recommend cessation # Hypertension with hypertensive urgency. --> On Norvasc 5 mg bid, Hydralazine,Imdur and Clonidine patch as needed --> Avoid beta-blockers for active cocaine us # Acute coronary syndrome/non-ST elevation myocardial infarction. --> per cards The date and time note entered does not reflect time and date patient was seen. GREATLY APPRECIATE CONSULTATION. Subjective Constitutional: Denies: no symptoms, chills, diaphoresis, fever, malaise, weakness, other HEENT: Denies: no symptoms, eye pain, blurred vision, tearing, double vision, ear pain, ear discharge, nose pain, nose congestion, throat pain, throat swelling, mouth pain, mouth swelling, other Cardiovascular: Denies: no symptoms, chest pain, edema, irregular heart rate, lightheadedness, palpitations, syncope, other Respiratory: Denies: no symptoms, cough, orthopnea, shortness of breath, SOB with excertion, SOB at rest, sputum, stridor, wheezing, other Gastrointestinal/Abdominal: Denies: no symptoms, abdomen distended, abdominal pain, black stools, tarry stools, blood in stool, constipated, diarrhea, difficulty swallowing, nausea, poor appetite, poor fluid intake, rectal bleeding , vomiting, other Genitourinary: Denies: no symptoms, burning, discharge, frequency, flank pain, hematuria, incontinence, pain, urgency, other Endocrine: Denies: no symptoms, excessive sweating, flushing, intolerance to cold, intolerance to heat, increased hunger, increased thirst, increased urine, unexplained weight gain, unexplained weight loss, other Hematologic/Lymphatic: Denies: no symptoms, anemia, easy bleeding, easy bruising, other Allergies: Coded Allergies: No Known Allergies (Unverified , 07/08/18) Subjective 07/12: no events, cr trending, h/h stable, on epo 07/14: transfuse one unit 07/13, diruresed, refused mendez, seen by cards, bp better 07/15 : Pt is seen in the room, awake and alert, S/P blood transfusion, refusing HD 07/16 : Pt is awake and resting in bed. waiting on sister to make HD decision, no events 07/17 Pt is seen in the room,awake and alert, appears to be agreeable for placement of dialysis cath and dialysis . 07/18: Pt is seen in the room, No CP or SOB. Had HD today. 07/19: Pt is awake and resting in bed. Denies pain, SOB or fevers and chills. Has HD scheduled for 07/20/18, currently stable. 07/20: received hand held nebulizer, no other events, no f.c 07/21 : Pt seen by bedside, continues on breathing treatment, HD 07/22/18, no events 07/22: pending snf placement and outpatient hd 07/23: awake and resting in bed. no acute events, waiting placement and outpatient HD 07/24: no major events, waiting placement, seen by gi, recs reviewed, no complaints, on epo 07/25: CXR for patient c/o sob. O2 2L via NC administered. patient is A/A/Ox4. patient BLE edematous 07/26: Continues on oxygen of 3L/min via N/C. no acute respiratory distress is noted. Permacath to right chest for HD is intact 07/27: awake and comfortable, alert and oriented , next HD 07/28 07/28: Pt is seen by bedside, bipap is D/C, HD scheduled today, no events 07/29: Pt is awake and calm, Denies pain, SOB or fevers and chills, next HD 07/30. 07/30: hd pending, no major events, some sob 07/31: no complaints this am, r permacath in chest without issue, placement pending 08/04: pt is seen by bedside, awake, comfortable, waiting HD. 08/05: bp is much better controlled this am, no fevers or chills, refusing some labs; 08/06: seen by bedside, awake, comfortable, HD today, no events Objective Last 24 Hour Vital Signs Date Time Temp Pulse Resp B/P (MAP) Pulse Ox O2 Delivery O2 Flow Rate FiO2 08/06/18 12:00 97.2 77 20 146/85 (105) 93 08/06/18 09:00 Room Air 08/06/18 08:51 78 20 99 Room Air 21 08/06/18 08:51 80 135/82 08/06/18 08:51 135/82 08/06/18 08:50 80 135/82 08/06/18 08:50 135/82 08/06/18 08:49 79 20 98 Room Air 21 08/06/18 08:49 Room Air 21 08/06/18 08:49 98 Room Air 21 08/06/18 08:49 79 18 Room Air 21 08/06/18 08:00 98.0 80 20 135/82 (99) 97 08/06/18 04:09 97.7 84 20 143/84 (103) 95 08/06/18 04:06 97.7 08/06/18 01:41 Room Air 21 08/06/18 01:40 Room Air 21 08/06/18 00:00 98.0 76 20 131/88 (102) 96 08/05/18 20:58 76 137/87 08/05/18 20:33 76 20 99 Nasal Cannula 2.0 28 08/05/18 20:18 Room Air 08/05/18 20:00 98.0 73 19 137/87 (104) 97 08/05/18 19:56 73 20 98 Nasal Cannula 2.0 28 08/05/18 19:56 Nasal Cannula 2.0 28 08/05/18 19:55 97 Nasal Cannula 2.0 28 08/05/18 19:54 73 20 Nasal Cannula 2.0 28 08/05/18 18:25 145/90 08/05/18 16:00 97.5 85 18 145/90 (108) 97 Intake and Output 08/05/18 08/06/18 19:00 07:00 Intake Total 240 ml 240 ml Balance 240 ml 240 ml Intake Oral 240 ml 240 ml # Voids 4 # Bowel Movements 2 Laboratory Tests 08/05/18 21:00: HIV (1&2) Antibody Rapid Negative 08/06/18 05:35: White Blood Count 6.7, Red Blood Count 3.14L, Hemoglobin 9.6L, Hematocrit 31.3L , Mean Corpuscular Volume 100H, Mean Corpuscular Hemoglobin 30.7, Mean Corpuscular Hemoglobin Concent 30.8L, Red Cell Distribution Width 15.2H, Platelet Count 214, Mean Platelet Volume 6.9, Neutrophils (%) (Auto) 52.7, Lymphocytes (%) (Auto) 15.0L, Monocytes (%) (Auto) 14.4H, Eosinophils (%) (Auto ) 16.5H, Basophils (%) (Auto) 1.4, Sodium Level 136, Potassium Level 5.5H, Chloride Level 100, Carbon Dioxide Level 28, Anion Gap 8, Blood Urea Nitrogen 41H, Creatinine 6.4H, Estimat Glomerular Filtration Rate 10.9, Glucose Level 92 , Calcium Level 9.0 Height (Feet): 5 Height (Inches): 11.00 Weight (Pounds): 194 Objective Physical Exam General Appearance: A+O x2 NAD HEENT: normocephalic, atraumatic, R permacath Neck: non-tender, normal alignment Respiratory/Chest: chest wall non-tender, lungs clear Cardiovascular/Chest: normal peripheral pulses, normal rate Abdomen: normal bowel sounds, non tender Extremities: normal range of motion Shane Mary MD Aug 06, 2018 13:44
--- NOTE | 2018-08-06 15:18 | Cardiac Electrophysiology PN ---
Assessment/Plan Assessment/Plan 1. Troponin leak in the setting of cocaine use and renal failure. Levels are flat and low Avoid beta-pablo in view of active cocaine use. On aspirin and Lipitor. EF 45%. No CP 2. Hypertension. On Cardizem 360 daily, Metoprolol 100 bid, Imdur 60, Lisinopril 20 bid and HD 3. End-stage renal disease and hyperkalemia on HD by Dr. Cm 4. Substance use with cocaine. Avoid halfway beta-blockers. 5. Recent pneumonia. 6. Congestive heart failure with EF 45% 7. Anemia s/p PRBCs . 8. Placement pending insurance DW RN Subjective Subjective No CP or SOB. Had HD today.DC planning in progress Objective Last 24 Hour Vital Signs Date Time Temp Pulse Resp B/P (MAP) Pulse Ox O2 Delivery O2 Flow Rate FiO2 08/06/18 13:48 Room Air 21 08/06/18 13:48 Room Air 21 08/06/18 12:00 97.2 77 20 146/85 (105) 93 08/06/18 09:00 Room Air 08/06/18 08:51 78 20 99 Room Air 21 08/06/18 08:51 80 135/82 08/06/18 08:51 135/82 08/06/18 08:50 80 135/82 08/06/18 08:50 135/82 08/06/18 08:49 79 20 98 Room Air 21 08/06/18 08:49 Room Air 21 08/06/18 08:49 98 Room Air 21 08/06/18 08:49 79 18 Room Air 21 08/06/18 08:00 98.0 80 20 135/82 (99) 97 08/06/18 04:09 97.7 84 20 143/84 (103) 95 08/06/18 04:06 97.7 08/06/18 01:41 Room Air 21 08/06/18 01:40 Room Air 21 08/06/18 00:00 98.0 76 20 131/88 (102) 96 08/05/18 20:58 76 137/87 08/05/18 20:33 76 20 99 Nasal Cannula 2.0 28 08/05/18 20:18 Room Air 08/05/18 20:00 98.0 73 19 137/87 (104) 97 08/05/18 19:56 73 20 98 Nasal Cannula 2.0 28 08/05/18 19:56 Nasal Cannula 2.0 28 08/05/18 19:55 97 Nasal Cannula 2.0 28 08/05/18 19:54 73 20 Nasal Cannula 2.0 28 08/05/18 18:25 145/90 08/05/18 16:00 97.5 85 18 145/90 (108) 97 Intake and Output 08/05/18 08/06/18 19:00 07:00 Intake Total 240 ml 240 ml Balance 240 ml 240 ml Intake Oral 240 ml 240 ml # Voids 4 # Bowel Movements 2 Laboratory Tests Test 08/05/18 21:00 08/06/18 05:35 HIV (1&2) Antibody Rapid Negative (NEGATIVE) White Blood Count 6.7 K/UL (4.8-10.8) Red Blood Count 3.14 M/UL (4.70-6.10) L Hemoglobin 9.6 G/DL (14.2-18.0) L Hematocrit 31.3 % (42.0-52.0) L Mean Corpuscular Volume 100 FL (80-99) H Mean Corpuscular Hemoglobin 30.7 PG (27.0-31.0) Mean Corpuscular Hemoglobin Concent 30.8 G/DL (32.0-36.0) L Red Cell Distribution Width 15.2 % (11.6-14.8) H Platelet Count 214 K/UL (150-450) Mean Platelet Volume 6.9 FL (6.5-10.1) Neutrophils (%) (Auto) 52.7 % (45.0-75.0) Lymphocytes (%) (Auto) 15.0 % (20.0-45.0) L Monocytes (%) (Auto) 14.4 % (1.0-10.0) H Eosinophils (%) (Auto) 16.5 % (0.0-3.0) H Basophils (%) (Auto) 1.4 % (0.0-2.0) Sodium Level 136 MMOL/L (136-145) Potassium Level 5.5 MMOL/L (3.5-5.1) H Chloride Level 100 MMOL/L (98-107) Carbon Dioxide Level 28 MMOL/L (21-32) Anion Gap 8 mmol/L (5-15) Blood Urea Nitrogen 41 mg/dL (7-18) H Creatinine 6.4 MG/DL (0.55-1.30) H Estimat Glomerular Filtration Rate 10.9 mL/min (>60) Glucose Level 92 MG/DL (74-106) Calcium Level 9.0 MG/DL (8.5-10.1) Objective HEAD AND NECK: No JVD. LUNGS: Clear CARDIOVASCULAR: Regular S1 and S2 with no gallop or murmur. ABDOMEN: Soft. EXTREMITIES: 1 plus pitting edema. German Gray MD Aug 06, 2018 15:18
--- NOTE | 2018-08-06 15:58 | Pulmonology Progress Note ---
Assessment/Plan Problems: (1) Acute exacerbation of CHF (congestive heart failure) (2) Hypertensive cardiomegaly with heart failure (3) ACS (acute coronary syndrome) (4) Cocaine abuse (5) ARF (acute renal failure) (6) DDD (degenerative disc disease) (7) Epistaxis (8) Hypercapnic respiratory failure Assessment/Plan ASSESSMENT: The patient is a 58-year-old male with history of cocaine and tobacco abuse, congestive heart failure, and renal impairment, presenting with decompensated heart failure and abnormal renal function with marked uremia. He has previously been told he needs dialysis. He is now being admitted for acute coronary syndrome and likely need for dialysis. PROBLEM LIST: 1. Congestive heart failure with acute decompensated heart failure. 2. Abnormal renal function, likely cardiorenal syndrome now on HD 3. History of cocaine abuse with current positive tox screen. 4. Anemia/DARSHANA 5. Hypertension with hypertensive urgency. 6. Acute coronary syndrome/non-ST elevation myocardial infarction. 7. Acute on chronic LBP with radiculopathy ---> DDD/SS TREATMENT PLAN: -BiPAP 12/5 qHS and PRN - DECLINES -Titrate FiO2 -PRN DUOnebs -HD per renal with UF as able -Control BP -F/U cards and renal recs -F/U heme recs -F/U GI recs ---> plan for outpatient EGD/colo -DVT Px: hep SQ -Pain control/supportive care - minimize narcotics/sedatives -F/U pain management recs -Appreciate psych eval, has capacity, F/U recs -Neuro eval -SW assistance in placement Subjective Allergies: Coded Allergies: No Known Allergies (Unverified , 07/08/18) Subjective Events reviewed, AFVSS, stable O2 needs Tremors and spasms no sig SOB, no CP, no F/C Objective Last 24 Hour Vital Signs Date Time Temp Pulse Resp B/P (MAP) Pulse Ox O2 Delivery O2 Flow Rate FiO2 08/06/18 13:48 Room Air 21 08/06/18 13:48 Room Air 21 08/06/18 12:00 97.2 77 20 146/85 (105) 93 08/06/18 09:00 Room Air 08/06/18 08:51 78 20 99 Room Air 21 08/06/18 08:51 80 135/82 08/06/18 08:51 135/82 08/06/18 08:50 80 135/82 08/06/18 08:50 135/82 08/06/18 08:49 79 20 98 Room Air 21 08/06/18 08:49 Room Air 21 08/06/18 08:49 98 Room Air 21 08/06/18 08:49 79 18 Room Air 21 08/06/18 08:00 98.0 80 20 135/82 (99) 97 08/06/18 04:09 97.7 84 20 143/84 (103) 95 08/06/18 04:06 97.7 08/06/18 01:41 Room Air 21 08/06/18 01:40 Room Air 21 08/06/18 00:00 98.0 76 20 131/88 (102) 96 08/05/18 20:58 76 137/87 08/05/18 20:33 76 20 99 Nasal Cannula 2.0 28 08/05/18 20:18 Room Air 08/05/18 20:00 98.0 73 19 137/87 (104) 97 08/05/18 19:56 73 20 98 Nasal Cannula 2.0 28 08/05/18 19:56 Nasal Cannula 2.0 28 08/05/18 19:55 97 Nasal Cannula 2.0 28 08/05/18 19:54 73 20 Nasal Cannula 2.0 28 08/05/18 18:25 145/90 08/05/18 16:00 97.5 85 18 145/90 (108) 97 Intake and Output 08/05/18 08/06/18 19:00 07:00 Intake Total 240 ml 240 ml Balance 240 ml 240 ml Intake Oral 240 ml 240 ml # Voids 4 # Bowel Movements 2 General Appearance: WD/WN, no acute distress HEENT: normocephalic, atraumatic, anicteric, mucous membranes moist Respiratory/Chest: chest wall non-tender, lungs clear, normal breath sounds, no respiratory distress, no accessory muscle use Cardiovascular: normal peripheral pulses, normal rate, regular rhythm Abdomen: normal bowel sounds, soft, non tender, no organomegaly, non distended , no mass Extremities: no cyanosis, no clubbing, no edema Laboratory Tests 08/05/18 21:00: HIV (1&2) Antibody Rapid Negative 08/06/18 05:35: White Blood Count 6.7, Red Blood Count 3.14L, Hemoglobin 9.6L, Hematocrit 31.3L , Mean Corpuscular Volume 100H, Mean Corpuscular Hemoglobin 30.7, Mean Corpuscular Hemoglobin Concent 30.8L, Red Cell Distribution Width 15.2H, Platelet Count 214, Mean Platelet Volume 6.9, Neutrophils (%) (Auto) 52.7, Lymphocytes (%) (Auto) 15.0L, Monocytes (%) (Auto) 14.4H, Eosinophils (%) (Auto ) 16.5H, Basophils (%) (Auto) 1.4, Sodium Level 136, Potassium Level 5.5H, Chloride Level 100, Carbon Dioxide Level 28, Anion Gap 8, Blood Urea Nitrogen 41H, Creatinine 6.4H, Estimat Glomerular Filtration Rate 10.9, Glucose Level 92 , Calcium Level 9.0 Current Medications Medications (Trade) Dose Ordered Sig/Harish Route PRN Reason Start Time Stop Time Status Last Admin Dose Admin Acetaminophen (Tylenol) 650 mg Q4H PRN ORAL Mild Pain/Temp > 100.5 07/26/18 22:00 08/25/18 21:59 07/27/18 02:11 Acetaminophen/ Hydrocodone Bitart ([place] 10/325) 1 tab Q4H PRN ORAL Severe Pain (Pain Scale 7-10) 08/03/18 19:45 08/10/18 19:44 08/06/18 08:52 Albuterol/ Ipratropium (Albuterol/ Ipratropium) 3 ml Q4H PRN HHN Shortness of Breath 08/01/18 16:30 08/06/18 16:29 Albuterol/ Ipratropium (Albuterol/ Ipratropium) 3 ml Q6HRT HHN 08/01/18 16:30 08/06/18 16:29 08/06/18 08:48 Aspirin (ASA) 81 mg DAILY ORAL 07/27/18 09:00 08/08/18 08:59 08/06/18 08:51 Baclofen (Lioresal) 10 mg Q6H PRN ORAL spasm 08/04/18 10:30 09/03/18 10:29 08/06/18 00:18 Chlorhexidine Gluconate (Laurel-Hex 2%) 1 applic DAILY@1999 TOPIC 07/27/18 20:00 08/25/18 19:59 08/05/18 20:58 Clonidine HCl (Catapres Tab) 0.1 mg Q4H PRN ORAL bp over 165 syst 07/26/18 22:00 08/25/18 21:59 07/31/18 12:59 Dextrose (Dextrose 50%) 25 ml Q30M PRN IV Hypoglycemia 07/26/18 22:00 08/07/18 16:29 Dextrose (Dextrose 50%) 50 ml Q30M PRN IV Hypoglycemia 07/26/18 22:00 08/07/18 16:29 Diltiazem HCl (Cardizem CD) 360 mg DAILY ORAL 08/01/18 09:00 08/25/18 08:59 08/06/18 08:50 Diphenhydramine HCl (Benadryl) 25 mg Q6H PRN ORAL Itching/Pruritis 07/26/18 22:30 08/07/18 16:29 08/06/18 00:18 Epoetin Juan [place] (Procrit (for ESRD on dialysis)) 8,000 units FRI-FRI-FRI SUBQ 07/29/18 21:00 08/28/18 20:59 08/05/18 20:59 Gabapentin (Neurontin) 300 mg THREE TIMES A DAY ORAL 07/27/18 09:00 08/17/18 17:59 08/06/18 13:36 Heparin Sodium (Porcine) (Heparin 5000 units/ml) 5,000 units EVERY 12 HOURS SUBQ 07/27/18 09:00 08/14/18 21:59 08/06/18 08:53 Iron Sucrose 100 mg/Sodium Chloride 60 ml @ 240 mls/hr BEDTIME IV 08/05/18 21:00 08/09/18 21:14 08/05/18 20:58 Isosorbide Mononitrate (Imdur) 60 mg DAILY ORAL 07/27/18 09:00 08/11/18 08:59 08/06/18 08:50 Lisinopril (Prinivil) 20 mg BID ORAL 07/27/18 09:00 08/19/18 08:59 08/06/18 08:51 Magnesium Oxide (Mag-Ox 400mg) 400 mg THREE TIMES A DAY ORAL 08/02/18 13:00 09/01/18 12:59 08/06/18 13:36 Metoprolol Tartrate (Lopressor) 100 mg Q12HR ORAL 07/27/18 09:00 08/22/18 20:59 08/06/18 08:51 Pantoprazole (Protonix) 40 mg DAILY ORAL 08/07/18 09:00 09/06/18 08:59 Polyethylene Glycol (Miralax) 17 gm DAILYPRN PRN ORAL Constipation 08/04/18 16:15 09/03/18 16:14 Sevelamer Carbonate (Renvela) 1,600 mg THREE TIMES A DAY ORAL 08/04/18 13:00 08/08/18 17:59 08/06/18 13:36 Tamsulosin HCl (Flomax) 0.4 mg QHS ORAL 07/27/18 21:00 08/09/18 12:52 08/05/18 20:58 Edgard Webb MD Aug 06, 2018 15:58
[2018-08-06 16:00] VITALS: BP 139/92
--- NOTE | 2018-08-06 17:27 | Consultation ---
Consult Note Consult Note NEUROLOGY CONSULTATION: Full note dictated #[id number] 58 y/o, RH, BM who was hospitalized on 07/08/18 for shortness of breath. He was noted to have renal failure, respiratory failure, CHF, and was intoxicated with cocaine. He has been exhibiting generalized body jerks and other abnormal movements. He is significantly encephalopathic at this time and is unable to give me any Hx. He has DJD involving the LS Spine but denies any significant pain at this time. ON EXAM: Awake but not alert. Cerebration slow. Problems with orientation, memory, VSF, HCF Right eye phthisis bulbi. Unable to give good motor effort due to severe asterixis. Unable to cooperate for Sensory tests. Globally absent DTRs with flexor plantars. Unable to stand and walk. Asterixis G 3/4 Myoclonus G 1/4 IMPRESSION: Moderately severe encephalopathy. Known reasons for encephalopathy - renal dysfunction, respiratory dysfunction, CHF. REC: Correct all known metabolic abnormalities. Discontinue all mind altering drugs. ABG, Ammonia EEG CT brain no contrast. Observe. Eriberto Berg M.D., M.S.P.H. Eriberto Berg MD Aug 06, 2018 17:27
[2018-08-06 20:00] VITALS: BP 142/96
[2018-08-06] MEDS: Dyna-Hex 2% Top Sol 2oz TOPIC SCH (20:59)
[2018-08-06] MEDS: Tamsulosin 0.4mg cap ORAL SCH (20:59)
[2018-08-06] MEDS: Iron Sucrose 100 MG in NS 55 ML IV SCH (21:00)
[2018-08-06] MEDS ORDERED: Albuterol/Ipratropium 3ml neb HHN PRN (21:37)
--- NOTE | 2018-08-06 23:00 | Consultation ---
DATE OF CONSULTATION: 08/06/2018 NEUROLOGY CONSULTATION CONSULTING PHYSICIAN: Eriberto Berg M.D. REQUESTING PHYSICIAN: Edgard Webb M.D. HISTORY: Mr. Bg Neal is a 58-year-old, right-handed, black gentleman, who was hospitalized on 07/08/2018 for shortness of breath. He was noted to have renal failure, respiratory failure, congestive heart failure, and was intoxicated with cocaine. He has since been stabilized, started on hemodialysis and his respiratory and renal failure have been treated appropriately. He, however, has been exhibiting some generalized abnormal body jerks and other abnormal body movements, and thus this consultation was requested. At this point in time, the patient is significantly encephalopathic and is unable to give me much of a history. 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 FAMILY HISTORY: The patient was unable to tell me if any neurological illnesses run in the family or not and nothing was recorded in the chart. PERSONAL HISTORY: Home: He says that he lives alone. 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 Habits: He used to smoke approximately 1 pack of cigarettes per day prior to admission. He used to consume 1 pint of vodka every day prior to admission. He used to use crack cocaine as much as he could get prior to admission. PRESENT MEDICATIONS: Include Protonix, iron sucrose, MiraLAX, Renvela, baclofen, [place], magnesium, diazepam, Procrit, Flomax, aspirin, heparin for DVT prophylaxis, Imdur, Prinivil, Lopressor, Benadryl, Tylenol, and Catapres. PHYSICAL EXAMINATION: GENERAL: He is a well-developed and well-nourished black gentleman, lying in bed, in no acute distress. Quite encephalopathic. VITAL SIGNS: Pulse 77/minute, blood pressure 146/85 mmHg, respirations 20/minute, and temperature 97.2 degrees Fahrenheit. HEAD: Normocephalic and atraumatic. NECK: No neck rigidity was observed. EENT: Examination benign. SPINE: Cervical, thoracic, and lumbosacral spine revealed no tenderness and no paraspinal muscle spasm, but decreased range of motion. NEUROLOGICAL EXAMINATION: MENTAL STATUS EXAMINATION: He was awake, but not alert. His cerebration was significantly slowed. He was oriented to self and hospital, but did not know the name of the hospital. He knew it was July, but did not know the date or the year. He was able to recall 3/3 words immediately, but could not remember any of them in 1 minute and 3 minutes. He knew that Damon was president, but could not remember presidents prior to that. His mathematical skills were impaired. His visuospatial function was also impaired. SPEECH: He had a mild dysarthria. LANGUAGE: Could not be tested adequately because of his inability to maintain attention. CRANIAL NERVE EXAMINATION: II: He was able to count fingers correctly in the left eye. He had right-sided phthisis bulbi. He was unable to cooperate for confrontation testing. III, IV & : External ocular movements were present, but incomplete in the left eye. In the right eye ocular movements were significantly diminished. The left pupil was 3 mm and reactive sluggishly to light. V: He had normal facial sensations and the temporales, masseters, and pterygoids functioned normally. VII: He had normal facial expressions and no facial asymmetry. VIII: He was able to hear well and had no nystagmus. IX: The palate moved symmetrically on phonation. X: He had no hoarseness of voice. XI: The sternocleidomastoids and trapezii functioned normally. XII: The tongue was in the midline without any fasciculations or atrophy. MOTOR SYSTEM: The tone was normal in all four extremities. Examination of muscle mass revealed no focal wasting. Examination of power was exceedingly difficult to perform because he was unable to give a good motor effort due to severe asterixis. SENSORY EXAMINATION: He responded appropriately to deep pain, but was unable to cooperate for other sensory modalities. REFLEXES: 0 at the biceps, triceps, brachioradialis, knees, and ankles. The plantar responses were flexor bilaterally. COORDINATION: He was unable to perform [id number] or [id number] testing. STANCE: He was unable to stand because his legs would buckle. GAIT: Could not be tested. ABNORMAL MOVEMENTS: Asterixis: Of a generalized nature G 3/4. Myoclonus: Of a generalized nature G 1/4. DIAGNOSTIC IMPRESSION: 1. Mr. Bg Neal is a 58-year-old, right-handed, black gentleman, who was hospitalized on 07/08/2018 for shortness of breath and was found to have renal failure, respiratory failure, congestive heart failure, and was intoxicated with cocaine. Since then, he has been treated for these problems. He has been exhibiting some abnormal generalized body jerks and other abnormal movements for which I was called in to evaluate him. At this point in time, he is significantly encephalopathic and unable to give any significant history. He does also have a history of degenerative joint disease involving the lumbosacral spine, but denies any significant back pain at this time. 2. On neurological examination, at this time, he is awake, but not alert. His cerebration is significantly slowed. He has severe problems with orientation, recent and remote memory, visuospatial function, higher cognitive function, and language. He also has a significant dysarthria. He has right-sided phthisis bulbi. He is unable to give a good motor effort due to severe asterixis. He is unable to cooperate for sensory testing because he is unable to pay attention. His deep tendon reflexes are globally absent, but his plantar responses are flexor. He is unable to stand and walk because of severe asterixis. He exhibits constant asterixis and myoclonus. 3. His latest laboratory data revealed that he is anemic with a hemoglobin of 9.6 G. His last blood gas performed on 07/25/2018 revealed a pH was low at 7.34, pCO2 elevated to 50.1, and pO2 normal at 79.3. His latest chemistry panel revealed a potassium elevated at 5.5, a BUN elevated at 41, and a creatinine elevated at 6.4. His last toxicology screen performed on 07/08/2018, was positive for cocaine. 4. The patient's history, neurological examination, and laboratory data are most compatible with moderately severe encephalopathy. The known reasons for encephalopathy at this point in time include renal dysfunction, respiratory dysfunction, congestive heart failure, and the mind-altering drugs that have been given to him. RECOMMENDATIONS: 1. Would correct all known metabolic abnormalities. 2. Would recheck ABG and ammonia level. 3. An EEG should be performed to evaluate the patient for the degree and type of cerebral dysfunction. 4. The CT scan of the brain without contrast should be performed to evaluate the patient for intracranial pathology. 5. All mind-altering drugs should be discontinued. 6. The patient should be observed closely and depending on how he fares further recommendations will be given. Thank you for entrusting me with the care of . I shall follow him with you. Eriberto Berg M.D., M.S.P.H. DR: ROYAL JOB#: [id number] WING
[2018-08-07] VITALS (7 sets, daily range): BP systolic 131–152; BP diastolic 77–100
[2018-08-07] MEDS: Albuterol/Ipratropium 3ml neb HHN SCH ×4 (00:51→19:30)
[2018-08-07 07:38] LABS: BASOPHILS % (AUTO) 2.4 % (0.0-2.0); EOSINOPHILS % (AUTO) 16.5 % (0.0-3.0); HEMATOCRIT 30.9 % (42.0-52.0); HEMOGLOBIN 9.5 G/DL (14.2-18.0); LYMPHOCYTES % (AUTO) 16.6 % (20.0-45.0); MEAN CORPUSCULAR VOLUME 100 FL (80-99); MONOCYTES % (AUTO) 14.3 % (1.0-10.0); NEUTROPHILS % (AUTO) 50.2 % (45.0-75.0); PLATELET COUNT 177 K/UL (150-450); RED CELL DISTRIBUTION WIDTH 14.7 % (11.6-14.8); WHITE BLOOD COUNT 6.6 K/UL (4.8-10.8)
[2018-08-07 07:47] LABS: ANION GAP 5 mmol/L (5-15); BLOOD UREA NITROGEN 35 mg/dL (7-18); CALCIUM 8.8 MG/DL (8.5-10.1); CARBON DIOXIDE 28 MMOL/L (21-32); CHLORIDE 102 MMOL/L (98-107); CREATININE 5.8 MG/DL (0.55-1.30); POTASSIUM 5.1 MMOL/L (3.5-5.1); SODIUM 135 MMOL/L (136-145)
[2018-08-07] MEDS: Aspirin Baby 81mg ORAL SCH (08:31)
[2018-08-07] MEDS: Lisinopril 20mg tab ORAL SCH ×2 (08:32→17:14)
[2018-08-07] MEDS: Magnesium Oxide 400mg tab ORAL SCH ×3 (08:33→17:14)
[2018-08-07] MEDS: dilTIAZem HCl CD 180mg cap ORAL SCH (08:33)
[2018-08-07] MEDS: Imdur 30mg tab ORAL SCH (08:33)
[2018-08-07] MEDS: Heparin 5000 units/ml inj SUBQ SCH ×2 (08:35→20:56)
--- NOTE | 2018-08-07 08:58 | General Progress Note ---
Assessment/Plan Assessment/Plan (1) Lumbar DDD (2) Lumbar Spondylosis (3) Cocaine Abuse Patient will be continued on Baclofen and Otley as needed. D/w Dr. Rosado and he concurred. Subjective Date patient seen: Aug 07, 2018 Time patient seen: 08:00 - am Allergies: Coded Allergies: No Known Allergies (Unverified , 07/08/18) Subjective REVIEW OF SYSTEMS: Denies rash, fever, chills, sweating, dizziness, drowsiness, blurred vision, or change in weight. No chest pain. No nausea, vomiting, diarrhea, or blood in the stool or urine. No bowel or bladder incontinence. He is complaining of low back pain. SUBJECTIVE: Patient is in bed showing no signs of pain or distress. He continues to request the Otley as needed. Has no new complaints at this time. Objective Last 24 Hour Vital Signs Date Time Temp Pulse Resp B/P (MAP) Pulse Ox O2 Delivery O2 Flow Rate FiO2 08/07/18 08:33 85 146/95 08/07/18 08:33 85 146/95 08/07/18 08:33 146/95 08/07/18 08:32 146/95 08/07/18 08:00 98.9 85 16 146/95 (112) 97 08/07/18 07:24 72 18 99 Room Air 21 08/07/18 07:16 74 20 Room Air 21 08/07/18 07:16 96 Room Air 21 08/07/18 07:16 74 20 96 Room Air 21 08/07/18 07:16 Room Air 21 08/07/18 05:24 73 18 94 08/07/18 04:00 61 08/07/18 04:00 97.7 80 20 149/100 (116) 98 08/07/18 02:54 70 11 96 Facial 21 08/07/18 01:04 68 18 98 Bi-pap 21 08/07/18 00:51 75 18 97 Bi-pap 21 08/07/18 00:49 75 18 97 Facial 21 08/07/18 00:00 97.5 72 20 152/96 (114) 97 08/06/18 21:15 Room Air 08/06/18 20:59 70 142/96 08/06/18 20:50 70 20 Room Air 21 08/06/18 20:50 94 Room Air 21 08/06/18 20:50 Room Air 21 08/06/18 20:50 Room Air 21 08/06/18 20:50 Room Air 21 08/06/18 20:00 98.2 73 22 142/96 (111) 95 08/06/18 17:27 139/92 08/06/18 16:00 98.1 75 20 139/92 (108) 98 08/06/18 13:48 Room Air 21 08/06/18 13:48 Room Air 21 08/06/18 12:00 97.2 77 20 146/85 (105) 93 08/06/18 09:00 Room Air Intake and Output 08/06/18 08/07/18 18:59 06:59 Intake Total 1000 ml 60 ml Output Total 3600 ml Balance -2600 ml 60 ml Intake Oral 1000 ml IV Total 60 ml Output Urine Total 600 ml Hemodialysis UF 3000 ml # Voids 1 Laboratory Tests 08/06/18 17:45: Arterial Blood pH 7.362, Arterial Blood Partial Pressure CO2 47.9H, Arterial Blood Partial Pressure O2 77.3, Arterial Blood HCO3 26.6H, Arterial Blood Oxygen Saturation 94.8L, Arterial Blood Base Excess 0.8, Enzo Test Positive 08/06/18 18:10: Ammonia 13 08/07/18 07:13: White Blood Count 6.6, Red Blood Count 3.10L, Hemoglobin 9.5L, Hematocrit 30.9L , Mean Corpuscular Volume 100H, Mean Corpuscular Hemoglobin 30.6, Mean Corpuscular Hemoglobin Concent 30.7L, Red Cell Distribution Width 14.7, Platelet Count 177, Mean Platelet Volume 7.4, Neutrophils (%) (Auto) 50.2, Lymphocytes (%) (Auto) 16.6L, Monocytes (%) (Auto) 14.3H, Eosinophils (%) (Auto ) 16.5H, Basophils (%) (Auto) 2.4H, Sodium Level 135L, Potassium Level 5.1, Chloride Level 102, Carbon Dioxide Level 28, Anion Gap 5, Blood Urea Nitrogen 35H, Creatinine 5.8H, Estimat Glomerular Filtration Rate 12.2, Glucose Level 136H, Calcium Level 8.8 Height (Feet): 5 Height (Inches): 11.00 Weight (Pounds): 193 Objective GENERAL: Alert, awake, and oriented. LUNGS: Decreased breath sounds bilaterally. HEART: S1 and S2 regular. ABDOMEN: Soft, nontender. EXTREMITIES: No CCE NEURO: No changes. James Ramirez Aug 07, 2018 08:58
--- NOTE | 2018-08-07 10:25 | Nephrology Progress Note ---
Assessment/Plan Problem List: (1) Renal failure (ARF), acute on chronic (2) Cocaine abuse (3) Acute exacerbation of CHF (congestive heart failure) (4) Hypertensive cardiomegaly with heart failure (5) Volume overload Assessment Acute on Chronic renal failure Anemia Elevated troponin Hypertensive renal and heart disease Cocaine abuse Cardiomyopathy Plan next HD 08/08 DC muscle relaxant and Neurontin Ativan TID readjust bp meds and pain meds discussed with RN head CT results pending transfuse one unit 07/[address] Moura 2D Echo 55% ej fx BRIDGETT kidneys * Mild fullness of the bilateral renal collecting systems without radiographically appreciable stone and observed bilateral ureteral jets. Findings may be related to mild bladder distention. Consider repeat exam after bladder decompression. monitor renal parameters Avoid nephrotoxics renal diet flomax Subjective ROS Limited/Unobtainable: No Constitutional: Reports: malaise, other - tremors Objective Objective Last 24 Hour Vital Signs Date Time Temp Pulse Resp B/P (MAP) Pulse Ox O2 Delivery O2 Flow Rate FiO2 08/07/18 08:33 85 146/95 08/07/18 08:33 85 146/95 08/07/18 08:33 146/95 08/07/18 08:32 146/95 08/07/18 08:00 98.9 85 16 146/95 (112) 97 08/07/18 08:00 86 08/07/18 07:24 72 18 99 Room Air 21 08/07/18 07:16 74 20 Room Air 21 08/07/18 07:16 96 Room Air 21 08/07/18 07:16 74 20 96 Room Air 21 08/07/18 07:16 Room Air 21 08/07/18 05:24 73 18 94 08/07/18 04:00 61 08/07/18 04:00 97.7 80 20 149/100 (116) 98 08/07/18 02:54 70 11 96 Facial 21 08/07/18 01:04 68 18 98 Bi-pap 21 08/07/18 00:51 75 18 97 Bi-pap 21 08/07/18 00:49 75 18 97 Facial 21 08/07/18 00:00 97.5 72 20 152/96 (114) 97 08/06/18 21:15 Room Air 08/06/18 20:59 70 142/96 08/06/18 20:50 70 20 Room Air 21 08/06/18 20:50 94 Room Air 21 08/06/18 20:50 Room Air 21 08/06/18 20:50 Room Air 21 08/06/18 20:50 Room Air 21 08/06/18 20:00 98.2 73 22 142/96 (111) 95 08/06/18 17:27 139/92 08/06/18 16:00 98.1 75 20 139/92 (108) 98 08/06/18 13:48 Room Air 21 08/06/18 13:48 Room Air 21 08/06/18 12:00 97.2 77 20 146/85 (105) 93 Intake and Output 08/06/18 08/07/18 18:59 06:59 Intake Total 1000 ml 60 ml Output Total 3600 ml Balance -2600 ml 60 ml Intake Oral 1000 ml IV Total 60 ml Output Urine Total 600 ml Hemodialysis UF 3000 ml # Voids 1 Laboratory Tests 08/06/18 17:45: Arterial Blood pH 7.362, Arterial Blood Partial Pressure CO2 47.9H, Arterial Blood Partial Pressure O2 77.3, Arterial Blood HCO3 26.6H, Arterial Blood Oxygen Saturation 94.8L, Arterial Blood Base Excess 0.8, Enzo Test Positive 08/06/18 18:10: Ammonia 13 08/07/18 07:13: White Blood Count 6.6, Red Blood Count 3.10L, Hemoglobin 9.5L, Hematocrit 30.9L , Mean Corpuscular Volume 100H, Mean Corpuscular Hemoglobin 30.6, Mean Corpuscular Hemoglobin Concent 30.7L, Red Cell Distribution Width 14.7, Platelet Count 177, Mean Platelet Volume 7.4, Neutrophils (%) (Auto) 50.2, Lymphocytes (%) (Auto) 16.6L, Monocytes (%) (Auto) 14.3H, Eosinophils (%) (Auto ) 16.5H, Basophils (%) (Auto) 2.4H, Sodium Level 135L, Potassium Level 5.1, Chloride Level 102, Carbon Dioxide Level 28, Anion Gap 5, Blood Urea Nitrogen 35H, Creatinine 5.8H, Estimat Glomerular Filtration Rate 12.2, Glucose Level 136H, Calcium Level 8.8 Height (Feet): 5 Height (Inches): 11.00 Weight (Pounds): 193 General Appearance: no apparent distress, lethargic Cardiovascular: normal rate Respiratory/Chest: decreased breath sounds Abdomen: soft Objective no other change Richar Cm MD Aug 07, 2018 10:25
[2018-08-07 10:48] LABS: ALANINE AMINOTRANSFERASE 11 U/L (12-78); ALBUMIN 2.9 G/DL (3.4-5.0); ALKALINE PHOSPHATASE 110 U/L (46-116); ASPARTATE AMINO TRANSFERASE 9 U/L (15-37); BILIRUBIN,DIRECT < 0.1 MG/DL (0.0-0.3); BILIRUBIN,TOTAL 0.1 MG/DL (0.2-1.0); PHOSPHORUS 3.3 MG/DL (2.5-4.9)
--- NOTE | 2018-08-07 11:12 | GI Progress Note ---
Assessment/Plan Problems: (1) Macrocytic anemia ICD Codes: D53.9 - Nutritional anemia, unspecified SNOMED: 60447744 (2) Iron deficiency ICD Codes: E61.1 - Iron deficiency SNOMED: 65311176 (3) Constipation ICD Codes: K59.00 - Constipation, unspecified SNOMED: 30484803 (4) Cocaine abuse ICD Codes: F14.10 - Cocaine abuse, uncomplicated SNOMED: 66125031 (5) Pancreatitis ICD Codes: K85.90 - Acute pancreatitis without necrosis or infection, unspecified SNOMED: 68476851 Status: stable Status Narrative Discussed with Dr. Shea Assessment/Plan Pancreatitis now resolved Hepatitis panel negative history of hernia repair Stable H&H Transferred to the telemetry for abnormal ABGs Okay for DC per GI standpoint OB stool r/o GI bleed not collected monitor H&H, prn transfusions bowel regime ppi venofer renal diet fu labs outpatient GI procedures The patient was seen and examined at bedside and all new and available data was reviewed in the patients chart. I agree with the above findings, impression and plan. (Patient seen earlier today. Signature stamp does not reflect patient encounter time.). - Nikolas Shea MD Subjective Subjective Denies any constipation had complaint of lower abdominal pain, believes there is problem with his hernia mesh Denies any pain at this time Objective Last 24 Hour Vital Signs Date Time Temp Pulse Resp B/P (MAP) Pulse Ox O2 Delivery O2 Flow Rate FiO2 08/07/18 09:00 Room Air 08/07/18 08:33 85 146/95 08/07/18 08:33 85 146/95 08/07/18 08:33 146/95 08/07/18 08:32 146/95 08/07/18 08:00 98.9 85 16 146/95 (112) 97 08/07/18 08:00 86 08/07/18 07:24 72 18 99 Room Air 21 08/07/18 07:16 74 20 Room Air 21 08/07/18 07:16 96 Room Air 21 08/07/18 07:16 74 20 96 Room Air 21 08/07/18 07:16 Room Air 21 08/07/18 05:24 73 18 94 08/07/18 04:00 61 08/07/18 04:00 97.7 80 20 149/100 (116) 98 08/07/18 02:54 70 11 96 Facial 21 08/07/18 01:04 68 18 98 Bi-pap 21 08/07/18 00:51 75 18 97 Bi-pap 21 08/07/18 00:49 75 18 97 Facial 21 08/07/18 00:00 97.5 72 20 152/96 (114) 97 08/06/18 21:15 Room Air 08/06/18 20:59 70 142/96 08/06/18 20:50 70 20 Room Air 21 08/06/18 20:50 94 Room Air 21 08/06/18 20:50 Room Air 21 08/06/18 20:50 Room Air 21 08/06/18 20:50 Room Air 21 08/06/18 20:00 98.2 73 22 142/96 (111) 95 08/06/18 17:27 139/92 08/06/18 16:00 98.1 75 20 139/92 (108) 98 08/06/18 13:48 Room Air 21 08/06/18 13:48 Room Air 21 08/06/18 12:00 97.2 77 20 146/85 (105) 93 Intake and Output 08/06/18 08/07/18 18:59 06:59 Intake Total 1000 ml 60 ml Output Total 3600 ml Balance -2600 ml 60 ml Intake Oral 1000 ml IV Total 60 ml Output Urine Total 600 ml Hemodialysis UF 3000 ml # Voids 1 Laboratory Tests Test 08/06/18 17:45 08/06/18 18:10 08/07/18 07:13 08/07/18 07:30 Arterial Blood pH 7.362 (7.350-7.450) Arterial Blood Partial Pressure CO2 47.9 mmHg (35.0-45.0) H Arterial Blood Partial Pressure O2 77.3 mmHg (75.0-100.0) Arterial Blood HCO3 26.6 mmol/L (22.0-26.0) H Arterial Blood Oxygen Saturation 94.8 % (95-100) L Arterial Blood Base Excess 0.8 (-2-2) Enzo Test Positive Ammonia 13 umol/L (11-32) White Blood Count 6.6 K/UL (4.8-10.8) Red Blood Count 3.10 M/UL (4.70-6.10) L Hemoglobin 9.5 G/DL (14.2-18.0) L Hematocrit 30.9 % (42.0-52.0) L Mean Corpuscular Volume 100 FL (80-99) H Mean Corpuscular Hemoglobin 30.6 PG (27.0-31.0) Mean Corpuscular Hemoglobin Concent 30.7 G/DL (32.0-36.0) L Red Cell Distribution Width 14.7 % (11.6-14.8) Platelet Count 177 K/UL (150-450) Mean Platelet Volume 7.4 FL (6.5-10.1) Neutrophils (%) (Auto) 50.2 % (45.0-75.0) Lymphocytes (%) (Auto) 16.6 % (20.0-45.0) L Monocytes (%) (Auto) 14.3 % (1.0-10.0) H Eosinophils (%) (Auto) 16.5 % (0.0-3.0) H Basophils (%) (Auto) 2.4 % (0.0-2.0) H Sodium Level 135 MMOL/L (136-145) L Potassium Level 5.1 MMOL/L (3.5-5.1) Chloride Level 102 MMOL/L (98-107) Carbon Dioxide Level 28 MMOL/L (21-32) Anion Gap 5 mmol/L (5-15) Blood Urea Nitrogen 35 mg/dL (7-18) H Creatinine 5.8 MG/DL (0.55-1.30) H Estimat Glomerular Filtration Rate 12.2 mL/min (>60) Glucose Level 136 MG/DL (74-106) H Calcium Level 8.8 MG/DL (8.5-10.1) Phosphorus Level 3.3 MG/DL (2.5-4.9) Magnesium Level 2.1 MG/DL (1.8-2.4) Total Bilirubin 0.1 MG/DL (0.2-1.0) L Direct Bilirubin < 0.1 MG/DL (0.0-0.3) Aspartate Amino Transf (AST/SGOT) 9 U/L (15-37) L Alanine Aminotransferase (ALT/SGPT) 11 U/L (12-78) L Alkaline Phosphatase 110 U/L (46-116) Total Protein 6.8 G/DL (6.4-8.2) Albumin 2.9 G/DL (3.4-5.0) L Height (Feet): 5 Height (Inches): 11.00 Weight (Pounds): 193 General Appearance: WD/WN, no apparent distress, alert Cardiovascular: normal rate Respiratory/Chest: normal breath sounds, no respiratory distress Abdominal Exam: normal bowel sounds, non tender, soft Extremities: normal range of motion, non-tender Daja Murdock NP Aug 07, 2018 11:12
--- NOTE | 2018-08-07 11:56 | Diagnostic Imaging Report ---
Indications: Altered mental status Technique: Spiral acquisitions obtained through the brain. Angled axial and coronal 5 x 5 mm slices were reconstructed. Total dose length product 1418.31 mGycm. CTDI vol(s) 70.38 mGy. Dose reduction achieved using automated exposure control Comparison: None. Findings: No acute hemorrhage or edema. No mass effect nor midline shift. Normal-sized ventricles and extra axial CSF spaces. There is some periventricular deep white matter low-attenuation, consistent with chronic ischemic change. Otherwise normal molina-white differentiation. Intact calvarium. There is ethmoid sinus disease. There is evidence of some atrophy and calcification of the right optic globe. Impression: Negative for acute intracranial bleed or mass effect Atrophy and some calcification of the right optic globe. Correlate with clinical findings The CT scanner at [facility] is accredited by the [employer] and the scans are performed using protocols designed to limit radiation exposure to as low as reasonably achievable to attain images of sufficient resolution adequate for diagnostic evaluation.
[2018-08-07] MEDS: LORazepam 1mg tab ORAL SCH ×2 (12:47→17:14)
--- NOTE | 2018-08-07 13:16 | General Progress Note ---
Assessment/Plan Assessment/Plan # Anemia of iron deficiency, multifactorial, curtis on ckd --> Anemia w/u has been reviewed, no eric noted --> No evidence of hemolysis is noted, peripheral smear is wnl --> Hgb goal >7. Transfuse prn. --> continue on epo sq, reviewed renal recs --> on iron iv, has been given 5 doses of venofer 08/05 --> s/p blood transfusion # Congestive heart failure with acute decompensated heart failure. --> per cards management --> In tele unit --> on diuresis # Curtis, likely cardiorenal syndrome. --> Nephrology is following appreciate recs --> HD 08/04/18 --> BRIDGETT kidneys with minimal fullness, seen by renal, echogenicity is wnl # History of cocaine abuse with current positive tox screen. --> recommend cessation # Hypertension with hypertensive urgency. --> On Norvasc 5 mg bid, Hydralazine,Imdur and Clonidine patch as needed --> Avoid beta-blockers for active cocaine us # Acute coronary syndrome/non-ST elevation myocardial infarction. --> per cards The date and time note entered does not reflect time and date patient was seen. GREATLY APPRECIATE CONSULTATION. Subjective Constitutional: Denies: no symptoms, chills, diaphoresis, fever, malaise, weakness, other HEENT: Denies: no symptoms, eye pain, blurred vision, tearing, double vision, ear pain, ear discharge, nose pain, nose congestion, throat pain, throat swelling, mouth pain, mouth swelling, other Cardiovascular: Denies: no symptoms, chest pain, edema, irregular heart rate, lightheadedness, palpitations, syncope, other Gastrointestinal/Abdominal: Denies: no symptoms, abdomen distended, abdominal pain, black stools, tarry stools, blood in stool, constipated, diarrhea, difficulty swallowing, nausea, poor appetite, poor fluid intake, rectal bleeding , vomiting, other Genitourinary: Denies: no symptoms, burning, discharge, frequency, flank pain, hematuria, incontinence, pain, urgency, other Neurologic/Psychiatric: Denies: no symptoms, anxiety, depressed, emotional problems, headache, numbness, paresthesia, pre-existing deficit, seizure, tingling, tremors, weakness, other Endocrine: Denies: no symptoms, excessive sweating, flushing, intolerance to cold, intolerance to heat, increased hunger, increased thirst, increased urine, unexplained weight gain, unexplained weight loss, other Hematologic/Lymphatic: Denies: no symptoms, anemia, easy bleeding, easy bruising, other Allergies: Coded Allergies: No Known Allergies (Unverified , 07/08/18) Subjective 07/12: no events, cr trending, h/h stable, on epo 07/14: transfuse one unit 07/13, diruresed, refused mendez, seen by cards, bp better 07/15 : Pt is seen in the room, awake and alert, S/P blood transfusion, refusing HD 07/16 : Pt is awake and resting in bed. waiting on sister to make HD decision, no events 07/17 Pt is seen in the room,awake and alert, appears to be agreeable for placement of dialysis cath and dialysis . 07/18: Pt is seen in the room, No CP or SOB. Had HD today. 07/19: Pt is awake and resting in bed. Denies pain, SOB or fevers and chills. Has HD scheduled for 07/20/18, currently stable. 07/20: received hand held nebulizer, no other events, no f.c 07/21 : Pt seen by bedside, continues on breathing treatment, HD 07/22/18, no events 07/22: pending snf placement and outpatient hd 07/23: awake and resting in bed. no acute events, waiting placement and outpatient HD 07/24: no major events, waiting placement, seen by gi, recs reviewed, no complaints, on epo 07/25: CXR for patient c/o sob. O2 2L via NC administered. patient is A/A/Ox4. patient BLE edematous 07/26: Continues on oxygen of 3L/min via N/C. no acute respiratory distress is noted. Permacath to right chest for HD is intact 07/27: awake and comfortable, alert and oriented , next HD 07/28 07/28: Pt is seen by bedside, bipap is D/C, HD scheduled today, no events 07/29: Pt is awake and calm, Denies pain, SOB or fevers and chills, next HD 07/30. 07/30: hd pending, no major events, some sob 07/31: no complaints this am, r permacath in chest without issue, placement pending 08/04: pt is seen by bedside, awake, comfortable, waiting HD. 08/05: bp is much better controlled this am, no fevers or chills, refusing some labs; 08/06: seen by bedside, awake, comfortable, HD today, no events 08/07: Pt is awake, comfortable, eating breakfast, HD 08/08. , hgb 9.5,plt 177. Objective Last 24 Hour Vital Signs Date Time Temp Pulse Resp B/P (MAP) Pulse Ox O2 Delivery O2 Flow Rate FiO2 08/07/18 13:09 78 18 97 Room Air 21 08/07/18 12:00 83 08/07/18 12:00 97.1 85 16 134/77 (96) 98 08/07/18 09:00 Room Air 08/07/18 08:33 85 146/95 08/07/18 08:33 85 146/95 08/07/18 08:33 146/95 08/07/18 08:32 146/95 08/07/18 08:00 98.9 85 16 146/95 (112) 97 08/07/18 08:00 86 08/07/18 07:24 72 18 99 Room Air 21 08/07/18 07:16 74 20 Room Air 21 08/07/18 07:16 96 Room Air 21 08/07/18 07:16 74 20 96 Room Air 21 08/07/18 07:16 Room Air 21 08/07/18 05:24 73 18 94 08/07/18 04:00 61 08/07/18 04:00 97.7 80 20 149/100 (116) 98 08/07/18 02:54 70 11 96 Facial 21 08/07/18 01:04 68 18 98 Bi-pap 21 08/07/18 00:51 75 18 97 Bi-pap 21 08/07/18 00:49 75 18 97 Facial 21 08/07/18 00:00 97.5 72 20 152/96 (114) 97 08/06/18 21:15 Room Air 08/06/18 20:59 70 142/96 08/06/18 20:50 70 20 Room Air 21 08/06/18 20:50 94 Room Air 21 08/06/18 20:50 Room Air 21 08/06/18 20:50 Room Air 21 08/06/18 20:50 Room Air 21 08/06/18 20:00 98.2 73 22 142/96 (111) 95 08/06/18 17:27 139/92 08/06/18 16:00 98.1 75 20 139/92 (108) 98 08/06/18 13:48 Room Air 21 08/06/18 13:48 Room Air 21 Intake and Output 08/06/18 08/07/18 19:00 07:00 Intake Total 1000 ml 60 ml Output Total 3600 ml Balance -2600 ml 60 ml Intake Oral 1000 ml IV Total 60 ml Output Urine Total 600 ml Hemodialysis UF 3000 ml # Voids 1 Laboratory Tests 08/06/18 17:45: Arterial Blood pH 7.362, Arterial Blood Partial Pressure CO2 47.9H, Arterial Blood Partial Pressure O2 77.3, Arterial Blood HCO3 26.6H, Arterial Blood Oxygen Saturation 94.8L, Arterial Blood Base Excess 0.8, Enzo Test Positive 08/06/18 18:10: Ammonia 13 08/07/18 07:13: White Blood Count 6.6, Red Blood Count 3.10L, Hemoglobin 9.5L, Hematocrit 30.9L , Mean Corpuscular Volume 100H, Mean Corpuscular Hemoglobin 30.6, Mean Corpuscular Hemoglobin Concent 30.7L, Red Cell Distribution Width 14.7, Platelet Count 177, Mean Platelet Volume 7.4, Neutrophils (%) (Auto) 50.2, Lymphocytes (%) (Auto) 16.6L, Monocytes (%) (Auto) 14.3H, Eosinophils (%) (Auto ) 16.5H, Basophils (%) (Auto) 2.4H, Sodium Level 135L, Potassium Level 5.1, Chloride Level 102, Carbon Dioxide Level 28, Anion Gap 5, Blood Urea Nitrogen 35H, Creatinine 5.8H, Estimat Glomerular Filtration Rate 12.2, Glucose Level 136H, Calcium Level 8.8 08/07/18 07:30: Phosphorus Level 3.3, Magnesium Level 2.1, Total Bilirubin 0.1L, Direct Bilirubin < 0.1, Aspartate Amino Transf (AST/SGOT) 9L, Alanine Aminotransferase (ALT/SGPT) 11L, Alkaline Phosphatase 110, Total Protein 6.8, Albumin 2.9L Height (Feet): 5 Height (Inches): 11.00 Weight (Pounds): 193 Objective Physical Exam General Appearance: A+O x2 NAD HEENT: normocephalic, atraumatic, R permacath Neck: non-tender, normal alignment Respiratory/Chest: chest wall non-tender, lungs clear Cardiovascular/Chest: normal peripheral pulses, normal rate Abdomen: normal bowel sounds, non tender Extremities: normal range of motion Shane Mary MD Aug 07, 2018 13:16
--- NOTE | 2018-08-07 13:47 | Cardiac Electrophysiology PN ---
Assessment/Plan Assessment/Plan 1. Troponin leak in the setting of cocaine use and renal failure. Levels are flat and low. Avoid beta-pablo for active cocaine use. On aspirin and Lipitor. EF 45%. No CP 2. Hypertension. On Cardizem 360 daily, Metoprolol 100 bid, Imdur 60, Lisinopril 20 bid and HD 3. End-stage renal disease on HD by Dr. Cm 4. Substance use with cocaine. 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 5. Recent pneumonia. 6. Congestive heart failure with EF 45% 7. Anemia s/p PRBCs . 8. Placement pending DW RN Subjective Subjective No events. Had HD yesterday. Awaiting placement. Objective Last 24 Hour Vital Signs Date Time Temp Pulse Resp B/P (MAP) Pulse Ox O2 Delivery O2 Flow Rate FiO2 08/07/18 13:19 78 18 99 Room Air 21 08/07/18 13:09 78 18 97 Room Air 21 08/07/18 12:00 83 08/07/18 12:00 97.1 85 16 134/77 (96) 98 08/07/18 09:00 Room Air 08/07/18 08:33 85 146/95 08/07/18 08:33 85 146/95 08/07/18 08:33 146/95 08/07/18 08:32 146/95 08/07/18 08:00 98.9 85 16 146/95 (112) 97 08/07/18 08:00 86 08/07/18 07:24 72 18 99 Room Air 21 08/07/18 07:16 74 20 Room Air 21 08/07/18 07:16 96 Room Air 21 08/07/18 07:16 74 20 96 Room Air 21 08/07/18 07:16 Room Air 21 08/07/18 05:24 73 18 94 08/07/18 04:00 61 08/07/18 04:00 97.7 80 20 149/100 (116) 98 08/07/18 02:54 70 11 96 Facial 21 08/07/18 01:04 68 18 98 Bi-pap 21 08/07/18 00:51 75 18 97 Bi-pap 21 08/07/18 00:49 75 18 97 Facial 21 08/07/18 00:00 97.5 72 20 152/96 (114) 97 08/06/18 21:15 Room Air 08/06/18 20:59 70 142/96 08/06/18 20:50 70 20 Room Air 21 08/06/18 20:50 94 Room Air 21 08/06/18 20:50 Room Air 21 08/06/18 20:50 Room Air 21 08/06/18 20:50 Room Air 21 08/06/18 20:00 98.2 73 22 142/96 (111) 95 08/06/18 17:27 139/92 08/06/18 16:00 98.1 75 20 139/92 (108) 98 08/06/18 13:48 Room Air 21 08/06/18 13:48 Room Air 21 Intake and Output 08/06/18 08/07/18 19:00 07:00 Intake Total 1000 ml 60 ml Output Total 3600 ml Balance -2600 ml 60 ml Intake Oral 1000 ml IV Total 60 ml Output Urine Total 600 ml Hemodialysis UF 3000 ml # Voids 1 Laboratory Tests Test 08/06/18 17:45 08/06/18 18:10 08/07/18 07:13 08/07/18 07:30 Arterial Blood pH 7.362 (7.350-7.450) Arterial Blood Partial Pressure CO2 47.9 mmHg (35.0-45.0) H Arterial Blood Partial Pressure O2 77.3 mmHg (75.0-100.0) Arterial Blood HCO3 26.6 mmol/L (22.0-26.0) H Arterial Blood Oxygen Saturation 94.8 % (95-100) L Arterial Blood Base Excess 0.8 (-2-2) Enzo Test Positive Ammonia 13 umol/L (11-32) White Blood Count 6.6 K/UL (4.8-10.8) Red Blood Count 3.10 M/UL (4.70-6.10) L Hemoglobin 9.5 G/DL (14.2-18.0) L Hematocrit 30.9 % (42.0-52.0) L Mean Corpuscular Volume 100 FL (80-99) H Mean Corpuscular Hemoglobin 30.6 PG (27.0-31.0) Mean Corpuscular Hemoglobin Concent 30.7 G/DL (32.0-36.0) L Red Cell Distribution Width 14.7 % (11.6-14.8) Platelet Count 177 K/UL (150-450) Mean Platelet Volume 7.4 FL (6.5-10.1) Neutrophils (%) (Auto) 50.2 % (45.0-75.0) Lymphocytes (%) (Auto) 16.6 % (20.0-45.0) L Monocytes (%) (Auto) 14.3 % (1.0-10.0) H Eosinophils (%) (Auto) 16.5 % (0.0-3.0) H Basophils (%) (Auto) 2.4 % (0.0-2.0) H Sodium Level 135 MMOL/L (136-145) L Potassium Level 5.1 MMOL/L (3.5-5.1) Chloride Level 102 MMOL/L (98-107) Carbon Dioxide Level 28 MMOL/L (21-32) Anion Gap 5 mmol/L (5-15) Blood Urea Nitrogen 35 mg/dL (7-18) H Creatinine 5.8 MG/DL (0.55-1.30) H Estimat Glomerular Filtration Rate 12.2 mL/min (>60) Glucose Level 136 MG/DL (74-106) H Calcium Level 8.8 MG/DL (8.5-10.1) Phosphorus Level 3.3 MG/DL (2.5-4.9) Magnesium Level 2.1 MG/DL (1.8-2.4) Total Bilirubin 0.1 MG/DL (0.2-1.0) L Direct Bilirubin < 0.1 MG/DL (0.0-0.3) Aspartate Amino Transf (AST/SGOT) 9 U/L (15-37) L Alanine Aminotransferase (ALT/SGPT) 11 U/L (12-78) L Alkaline Phosphatase 110 U/L (46-116) Total Protein 6.8 G/DL (6.4-8.2) Albumin 2.9 G/DL (3.4-5.0) L Objective HEAD AND NECK: No JVD. LUNGS: Clear CARDIOVASCULAR: Regular S1 and S2 with no gallop or murmur. ABDOMEN: Soft. EXTREMITIES: 1 plus pitting edema. German Gray MD Aug 07, 2018 13:47
--- NOTE | 2018-08-07 14:56 | Pulmonology Progress Note ---
Assessment/Plan Problems: (1) Acute exacerbation of CHF (congestive heart failure) (2) Hypertensive cardiomegaly with heart failure (3) ACS (acute coronary syndrome) (4) Cocaine abuse (5) ARF (acute renal failure) (6) DDD (degenerative disc disease) (7) Epistaxis (8) Hypercapnic respiratory failure Assessment/Plan ASSESSMENT: The patient is a 58-year-old male with history of cocaine and tobacco abuse, congestive heart failure, and renal impairment, presenting with decompensated heart failure and abnormal renal function with marked uremia. He has previously been told he needs dialysis. He is now being admitted for acute coronary syndrome and likely need for dialysis. PROBLEM LIST: 1. Congestive heart failure with acute decompensated heart failure. 2. Abnormal renal function, likely cardiorenal syndrome now on HD 3. History of cocaine abuse with current positive tox screen. 4. Anemia/DARSHANA 5. Hypertension with hypertensive urgency. 6. Acute coronary syndrome/non-ST elevation myocardial infarction. 7. Acute on chronic LBP with radiculopathy ---> DDD/SS TREATMENT PLAN: -BiPAP 12/5 qHS and PRN - ENCOURAGE NOCTURNAL COMPLIANCE -Titrate FiO2 -HHN's -HD per renal with UF as able -Control BP -F/U cards and renal recs -F/U heme recs -F/U GI recs ---> plan for outpatient EGD/colo -DVT Px: hep SQ -Pain control/supportive care - minimize narcotics/sedatives -F/U pain management recs -Appreciate psych eval, has capacity, F/U recs -F/U neuro recs, F/U EEG -SW assistance in placement Subjective Allergies: Coded Allergies: No Known Allergies (Unverified , 07/08/18) Subjective Events reviewed, AFVSS, stable O2 needs Placed on noct BiPAP for CO2 retention neuro eval noted, CT NAD More alert less asterixis no sig SOB, no CP, no F/C Objective Last 24 Hour Vital Signs Date Time Temp Pulse Resp B/P (MAP) Pulse Ox O2 Delivery O2 Flow Rate FiO2 08/07/18 13:19 78 18 99 Room Air 21 08/07/18 13:09 78 18 97 Room Air 21 08/07/18 12:00 83 08/07/18 12:00 97.1 85 16 134/77 (96) 98 08/07/18 09:00 Room Air 08/07/18 08:33 85 146/95 08/07/18 08:33 85 146/95 08/07/18 08:33 146/95 08/07/18 08:32 146/95 08/07/18 08:00 98.9 85 16 146/95 (112) 97 08/07/18 08:00 86 08/07/18 07:24 72 18 99 Room Air 21 08/07/18 07:16 74 20 Room Air 21 08/07/18 07:16 96 Room Air 21 08/07/18 07:16 74 20 96 Room Air 21 08/07/18 07:16 Room Air 21 08/07/18 05:24 73 18 94 08/07/18 04:00 61 08/07/18 04:00 97.7 80 20 149/100 (116) 98 08/07/18 02:54 70 11 96 Facial 21 08/07/18 01:04 68 18 98 Bi-pap 21 08/07/18 00:51 75 18 97 Bi-pap 21 08/07/18 00:49 75 18 97 Facial 21 08/07/18 00:00 97.5 72 20 152/96 (114) 97 08/06/18 21:15 Room Air 08/06/18 20:59 70 142/96 08/06/18 20:50 70 20 Room Air 21 08/06/18 20:50 94 Room Air 21 08/06/18 20:50 Room Air 21 08/06/18 20:50 Room Air 21 08/06/18 20:50 Room Air 21 08/06/18 20:00 98.2 73 22 142/96 (111) 95 08/06/18 17:27 139/92 08/06/18 16:00 98.1 75 20 139/92 (108) 98 Intake and Output 08/06/18 08/07/18 19:00 07:00 Intake Total 1000 ml 60 ml Output Total 3600 ml Balance -2600 ml 60 ml Intake Oral 1000 ml IV Total 60 ml Output Urine Total 600 ml Hemodialysis UF 3000 ml # Voids 1 General Appearance: WD/WN, no acute distress HEENT: normocephalic, atraumatic, anicteric, mucous membranes moist Respiratory/Chest: chest wall non-tender, lungs clear, normal breath sounds, no respiratory distress, no accessory muscle use Cardiovascular: normal peripheral pulses, normal rate, regular rhythm Abdomen: normal bowel sounds, soft, non tender, no organomegaly, non distended , no mass Extremities: no cyanosis, no clubbing, no edema Laboratory Tests 08/06/18 17:45: Arterial Blood pH 7.362, Arterial Blood Partial Pressure CO2 47.9H, Arterial Blood Partial Pressure O2 77.3, Arterial Blood HCO3 26.6H, Arterial Blood Oxygen Saturation 94.8L, Arterial Blood Base Excess 0.8, Enzo Test Positive 08/06/18 18:10: Ammonia 13 08/07/18 07:13: White Blood Count 6.6, Red Blood Count 3.10L, Hemoglobin 9.5L, Hematocrit 30.9L , Mean Corpuscular Volume 100H, Mean Corpuscular Hemoglobin 30.6, Mean Corpuscular Hemoglobin Concent 30.7L, Red Cell Distribution Width 14.7, Platelet Count 177, Mean Platelet Volume 7.4, Neutrophils (%) (Auto) 50.2, Lymphocytes (%) (Auto) 16.6L, Monocytes (%) (Auto) 14.3H, Eosinophils (%) (Auto ) 16.5H, Basophils (%) (Auto) 2.4H, Sodium Level 135L, Potassium Level 5.1, Chloride Level 102, Carbon Dioxide Level 28, Anion Gap 5, Blood Urea Nitrogen 35H, Creatinine 5.8H, Estimat Glomerular Filtration Rate 12.2, Glucose Level 136H, Calcium Level 8.8 08/07/18 07:30: Phosphorus Level 3.3, Magnesium Level 2.1, Total Bilirubin 0.1L, Direct Bilirubin < 0.1, Aspartate Amino Transf (AST/SGOT) 9L, Alanine Aminotransferase (ALT/SGPT) 11L, Alkaline Phosphatase 110, Total Protein 6.8, Albumin 2.9L Current Medications Medications (Trade) Dose Ordered Sig/Harish Route PRN Reason Start Time Stop Time Status Last Admin Dose Admin Acetaminophen (Tylenol) 650 mg Q4H PRN ORAL Mild Pain/Temp > 100.5 07/26/18 22:00 08/25/18 21:59 07/27/18 02:11 Acetaminophen/ Hydrocodone Bitart ([place] 10/325) 1 tab Q4H PRN ORAL Severe Pain (Pain Scale 7-10) 08/03/18 19:45 08/10/18 19:44 08/06/18 08:52 Albuterol/ Ipratropium (Albuterol/ Ipratropium) 3 ml Q4H PRN HHN Shortness of Breath 08/06/18 21:37 08/11/18 21:36 Albuterol/ Ipratropium (Albuterol/ Ipratropium) 3 ml Q6HRT HHN 08/07/18 01:00 08/12/18 00:59 08/07/18 13:09 Aspirin (ASA) 81 mg DAILY ORAL 07/27/18 09:00 08/08/18 08:59 08/07/18 08:31 Chlorhexidine Gluconate (Laurel-Hex 2%) 1 applic DAILY@2000 TOPIC 07/27/18 20:00 08/25/18 19:59 08/06/18 20:59 Clonidine HCl (Catapres Tab) 0.1 mg Q4H PRN ORAL bp over 165 syst 07/26/18 22:00 08/25/18 21:59 07/31/18 12:59 Dextrose (Dextrose 50%) 25 ml Q30M PRN IV Hypoglycemia 07/26/18 22:00 08/07/18 16:29 Dextrose (Dextrose 50%) 50 ml Q30M PRN IV Hypoglycemia 07/26/18 22:00 08/07/18 16:29 Diltiazem HCl (Cardizem CD) 360 mg DAILY ORAL 08/01/18 09:00 08/25/18 08:59 08/07/18 08:33 Epoetin Juan Pablo (Procrit (for ESRD on dialysis)) 8,000 units FRI-FRI-FRI SUBQ 07/29/18 21:00 08/28/18 20:59 08/05/18 20:59 Heparin Sodium (Porcine) (Heparin 5000 units/ml) 5,000 units EVERY 12 HOURS SUBQ 07/27/18 09:00 08/14/18 21:59 08/07/18 08:35 Iron Sucrose 100 mg/Sodium Chloride 60 ml @ 240 mls/hr BEDTIME IV 08/05/18 21:00 08/09/18 21:14 08/06/18 21:00 Isosorbide Mononitrate (Imdur) 60 mg DAILY ORAL 07/27/18 09:00 08/11/18 08:59 08/07/18 08:33 Lisinopril (Prinivil) 20 mg BID ORAL 07/27/18 09:00 08/19/18 08:59 08/07/18 08:32 Lorazepam (Ativan) 1 mg THREE TIMES A DAY ORAL 08/07/18 13:00 08/14/18 12:59 08/07/18 12:47 Magnesium Oxide (Mag-Ox 400mg) 400 mg THREE TIMES A DAY ORAL 08/02/18 13:00 09/01/18 12:59 08/07/18 12:48 Metoprolol Tartrate (Lopressor) 100 mg Q12HR ORAL 07/27/18 09:00 08/22/18 20:59 08/07/18 08:33 Mirtazapine (Remeron) 15 mg BEDTIME ORAL 08/07/18 21:00 09/06/18 20:59 Pantoprazole (Protonix) 40 mg DAILY ORAL 08/07/18 09:00 09/06/18 08:59 08/07/18 08:32 Polyethylene Glycol (Miralax) 17 gm DAILYPRN PRN ORAL Constipation 08/04/18 16:15 09/03/18 16:14 Sevelamer Carbonate (Renvela) 1,600 mg THREE TIMES A DAY ORAL 08/04/18 13:00 08/08/18 17:59 08/07/18 12:47 Tamsulosin HCl (Flomax) 0.4 mg QHS ORAL 07/27/18 21:00 08/09/18 12:52 08/06/18 20:59 Edgard Webb MD Aug 07, 2018 14:56
--- NOTE | 2018-08-07 14:59 | Neurology Progress Note ---
Interim History Interim History Interim History Mr. Neal feels better. He is more easily arousable. He however continues to be significantly encephalopathic. The abnormal body jerks are a little better but still bothersome. He continues to be cognitively impoverished. He continues to be motorically challenged. He denies any new neurologic symptoms. Review of Systems Neuro Review of Systems Benign. Objective Physical Exam Last Vital Signs Date Time Temp Pulse Resp B/P (MAP) Pulse Ox O2 Delivery O2 Flow Rate FiO2 08/07/18 13:19 78 18 99 Room Air 21 08/07/18 12:00 97.1 134/77 (96) 08/05/18 20:33 2.0 Laboratory Tests Test 08/06/18 17:45 08/06/18 18:10 08/07/18 07:13 08/07/18 07:30 Arterial Blood pH 7.362 (7.350-7.450) Arterial Blood Partial Pressure CO2 47.9 mmHg (35.0-45.0) H Arterial Blood Partial Pressure O2 77.3 mmHg (75.0-100.0) Arterial Blood HCO3 26.6 mmol/L (22.0-26.0) H Arterial Blood Oxygen Saturation 94.8 % (95-100) L Arterial Blood Base Excess 0.8 (-2-2) Enzo Test Positive Ammonia 13 umol/L (11-32) White Blood Count 6.6 K/UL (4.8-10.8) Red Blood Count 3.10 M/UL (4.70-6.10) L Hemoglobin 9.5 G/DL (14.2-18.0) L Hematocrit 30.9 % (42.0-52.0) L Mean Corpuscular Volume 100 FL (80-99) H Mean Corpuscular Hemoglobin 30.6 PG (27.0-31.0) Mean Corpuscular Hemoglobin Concent 30.7 G/DL (32.0-36.0) L Red Cell Distribution Width 14.7 % (11.6-14.8) Platelet Count 177 K/UL (150-450) Mean Platelet Volume 7.4 FL (6.5-10.1) Neutrophils (%) (Auto) 50.2 % (45.0-75.0) Lymphocytes (%) (Auto) 16.6 % (20.0-45.0) L Monocytes (%) (Auto) 14.3 % (1.0-10.0) H Eosinophils (%) (Auto) 16.5 % (0.0-3.0) H Basophils (%) (Auto) 2.4 % (0.0-2.0) H Sodium Level 135 MMOL/L (136-145) L Potassium Level 5.1 MMOL/L (3.5-5.1) Chloride Level 102 MMOL/L (98-107) Carbon Dioxide Level 28 MMOL/L (21-32) Anion Gap 5 mmol/L (5-15) Blood Urea Nitrogen 35 mg/dL (7-18) H Creatinine 5.8 MG/DL (0.55-1.30) H Estimat Glomerular Filtration Rate 12.2 mL/min (>60) Glucose Level 136 MG/DL (74-106) H Calcium Level 8.8 MG/DL (8.5-10.1) Phosphorus Level 3.3 MG/DL (2.5-4.9) Magnesium Level 2.1 MG/DL (1.8-2.4) Total Bilirubin 0.1 MG/DL (0.2-1.0) L Direct Bilirubin < 0.1 MG/DL (0.0-0.3) Aspartate Amino Transf (AST/SGOT) 9 U/L (15-37) L Alanine Aminotransferase (ALT/SGPT) 11 U/L (12-78) L Alkaline Phosphatase 110 U/L (46-116) Total Protein 6.8 G/DL (6.4-8.2) Albumin 2.9 G/DL (3.4-5.0) L Neurologic Exam Objective PHYSICAL EXAMINATION: GENERAL: He is a well-developed and well-nourished black gentleman, lying in bed, in no acute distress. He is less encephalopathic. HEAD: Normocephalic and atraumatic. NECK: No neck rigidity was observed. EENT: Examination benign. SPINE: Cervical, thoracic, and lumbosacral spine revealed no tenderness and no paraspinal muscle spasm, but decreased range of motion. NEUROLOGICAL EXAMINATION: MENTAL STATUS EXAMINATION: He was awake, but not alert. His cerebration was significantly slowed. He was oriented to self and hospital, but did not know the name of the hospital. He knew it was July, but did not know the date or the year. He was able to recall 3/3 words immediately, but could not remember any of them in 1 minute and 3 minutes. He knew that Damon was president, but could not remember presidents prior to that. His mathematical skills were impaired. His visuospatial function was also impaired. SPEECH: He had a mild dysarthria. LANGUAGE: Could not be tested adequately because of his inability to maintain attention. CRANIAL NERVE EXAMINATION: II: He was able to count fingers correctly in the left eye. He had right-sided phthisis bulbi. He was unable to cooperate for confrontation testing. III, IV & : External ocular movements were present, but incomplete in the left eye. In the right eye ocular movements were significantly diminished. The left pupil was 3 mm and reactive sluggishly to light. V: He had normal facial sensations and the temporales, masseters, and pterygoids functioned normally. VII: He had normal facial expressions and no facial asymmetry. VIII: He was able to hear well and had no nystagmus. IX: The palate moved symmetrically on phonation. X: He had no hoarseness of voice. XI: The sternocleidomastoids and trapezii functioned normally. XII: The tongue was in the midline without any fasciculations or atrophy. MOTOR SYSTEM: The tone was normal in all four extremities. Examination of muscle mass revealed no focal wasting. Examination of power was exceedingly difficult to perform because he was unable to give a good motor effort due to severe asterixis. SENSORY EXAMINATION: He responded appropriately to deep pain, but was unable to cooperate for other sensory modalities. REFLEXES: 0 at the biceps, triceps, brachioradialis, knees, and ankles. The plantar responses were flexor bilaterally. COORDINATION: He was unable to perform [id number] or [id number] testing. STANCE & GAIT: Could not be tested. ABNORMAL MOVEMENTS: Asterixis: Of a generalized nature G 2/4. Myoclonus: Of a generalized nature G 1/4. Impression/Recommendations Diagnostic Impression 1. Mr. Bg Neal is a 58-year-old, right-handed, black gentleman, who was hospitalized on 07/08/2018 for shortness of breath and was found to have renal failure, respiratory failure, congestive heart failure, and was intoxicated with cocaine. Since then, he has been treated for these problems. He has been exhibiting some abnormal generalized body jerks and other abnormal movements for which I was called in to evaluate him. He does also have a history of degenerative joint disease involving the lumbosacral spine, but denies any significant back pain at this time. 2. He feels better. He is more easily arousable. He however continues to be significantly encephalopathic. The abnormal body jerks are a little better but still bothersome. He continues to be cognitively impoverished. He continues to be motorically challenged. He denies any new neurologic symptoms. 3. On neurological examination, at this time, he is awake, but not alert. His cerebration is significantly slowed but better than yesterday. He has severe problems with orientation, recent and remote memory, visuospatial function, higher cognitive function, and language. He also has a significant dysarthria. He has right-sided phthisis bulbi. He is unable to give a good motor effort due to severe asterixis. He is unable to cooperate for sensory testing because he is unable to pay attention. His deep tendon reflexes are globally absent, but his plantar responses are flexor. He is unable to stand and walk because of severe asterixis. He exhibits constant asterixis and myoclonus. 4. His laboratory data on my initial evaluation revealed that he was anemic with a hemoglobin of 9.6 G. His latest chemistry panel revealed a potassium elevated at 5.5, a BUN elevated at 41, and a creatinine elevated at 6.4. His last toxicology screen performed on 07/08/2018, was positive for cocaine. 5. His repeat ABG done on 08/06/18 revealed a pH=7.36, pCO2=48, pO2=77. 6. The CT of the brain done on 08/06/18 was benign. 7. The patient's history, neurological examination, and laboratory data are most compatible with moderately severe encephalopathy. The known reasons for encephalopathy at this point in time include renal dysfunction, respiratory dysfunction, congestive heart failure, and the mind-altering drugs that have been given to him. Recommendations 1. Would correct all known metabolic abnormalities. 2. Await EEG to evaluate the patient for the degree and type of cerebral dysfunction. 3. Refrain from use of all mind-altering drugs. 4. Observe. Eriberto Berg M.D., M.S.P.H. Eriberto Berg MD Aug 07, 2018 14:58
--- NOTE | 2018-08-07 18:00 | Electroencephalogram ---
DATE OF PROCEDURE: 08/06/2018 REQUESTING PHYSICIAN: Edgard Webb M.D. READING PHYSICIAN: Eriberto Berg M.D. PROCEDURE PERFORMED: Electroencephalogram. HISTORY: This EEG was performed on a 58-year-old gentleman with a history of multiple medical problems including respiratory failure, renal failure, congestive heart failure, hypertension, and cocaine intoxication. He has been having abnormal body jerks and has been quite encephalopathic. The purpose of this EEG was to evaluate the patient for the degree and type of cerebral dysfunction and to exclude ongoing ictal or interictal phenomena. TECHNICAL NOTE: This EEG was performed on a [employer] with electrodes placed on the scalp according to the International 10-20 system. [id number] and [id number] montages were used. The EEG was technically satisfactory and was performed in the awake, drowsy, and sleep states. OBSERVATIONS: In the best awake state, the background activity consisted of 6-7 Hz theta activity with some intermixed 2-2.5 Htz delta frequencies, and triphasic waveforms with an anterior to posterior gradient were seen from time to time. Drowsiness was characterized by slowing of the background in the 4-5 Hz theta range with intermixed delta frequencies. Stage II sleep was characterized by further slowing of the background in the delta and theta range, the presence of vertex waves, and 10-12 Hz sleep spindles. No definite focal abnormalities or epileptiform discharges were seen. Throughout the tracing, the patient had abnormal body movements, which were not associated with any EEG correlate. IMPRESSION: This is an abnormal EEG characterized by: 1. Slowing of the background in the 6-7 Hz theta range with some intermixed delta frequencies in the reportedly awake state. 2. The presence of triphasic waveforms. 3. The presence of slow 10-12 hz sleep spindles seen during sleep. COMMENT: This study is consistent with an encephalopathy of a moderate degree most, probably with a metabolic component is evidenced by the triphasic waveforms. Eriberto Berg M.D., M.S.P.H. DR: JOSESITO JOB#: [id number] [facility] CENTERJuan R
[2018-08-07] MEDS: Dyna-Hex 2% Top Sol 2oz TOPIC SCH (20:00)
[2018-08-07] MEDS: Epogen (for ESRD on dialysis) SUBQ SCH (20:45)
[2018-08-07] MEDS: Iron Sucrose 100 MG in NS 55 ML IV SCH (20:54)
[2018-08-07] MEDS: Tamsulosin 0.4mg cap ORAL SCH (20:54)
[2018-08-07] MEDS: HYDROcodone/Acetamin 10/325 tab ORAL PRN (21:06)
[2018-08-08 00:26] VITALS: BP 135/78
[2018-08-08] MEDS: Albuterol/Ipratropium 3ml neb HHN SCH ×4 (01:00→19:13)
[2018-08-08 04:36] VITALS: BP 136/85
--- NOTE | 2018-08-08 07:26 | General Progress Note ---
Assessment/Plan Problem List: (1) Lumbar spondylosis ICD Codes: M47.816 - Spondylosis without myelopathy or radiculopathy, lumbar region SNOMED: 592263621 (2) Renal failure (ARF), acute on chronic ICD Codes: N17.9 - Acute kidney failure, unspecified; N18.9 - Chronic kidney disease, unspecified SNOMED: 618652567 (3) Pancreatitis ICD Codes: K85.90 - Acute pancreatitis without necrosis or infection, unspecified SNOMED: 07888773 (4) Macrocytic anemia ICD Codes: D53.9 - Nutritional anemia, unspecified SNOMED: 13309360 (5) Iron deficiency ICD Codes: E61.1 - Iron deficiency SNOMED: 30156840 (6) Constipation ICD Codes: K59.00 - Constipation, unspecified SNOMED: 82885681 (7) MDD (major depressive disorder) ICD Codes: F32.9 - Major depressive disorder, single episode, unspecified SNOMED: 629581458 (8) Cocaine abuse ICD Codes: F14.10 - Cocaine abuse, uncomplicated SNOMED: 38051387 Assessment/Plan Pancreatitis now resolved Hepatitis panel negative history of hernia repair Stable H&H Okay for DC per GI standpoint OB stool r/o GI bleed not collected...re ordered monitor H&H, prn transfusions bowel regime, add colace ppi venofer renal diet fu labs outpatient GI procedures Subjective ROS Limited/Unobtainable: Yes Allergies: Coded Allergies: No Known Allergies (Unverified , 07/08/18) Subjective no event over night Objective Last 24 Hour Vital Signs Date Time Temp Pulse Resp B/P (MAP) Pulse Ox O2 Delivery O2 Flow Rate FiO2 08/08/18 07:11 Room Air 21 08/08/18 07:11 96 Room Air 21 08/08/18 07:11 Room Air 21 08/08/18 07:11 Room Air 21 08/08/18 04:37 75 08/08/18 04:36 98.0 75 20 136/85 (102) 100 08/08/18 01:09 Room Air 08/08/18 01:09 Room Air 08/08/18 00:26 98.4 71 18 135/78 (97) 98 08/08/18 00:00 73 08/07/18 21:36 97.9 08/07/18 21:00 Room Air 08/07/18 20:55 76 145/85 08/07/18 20:00 81 08/07/18 20:00 97.9 76 19 145/85 (105) 97 08/07/18 19:48 81 18 98 Room Air 21 08/07/18 19:34 80 20 Room Air 21 08/07/18 19:34 Room Air 21 08/07/18 19:33 97 Room Air 21 08/07/18 19:30 80 20 96 Room Air 21 08/07/18 17:14 131/88 08/07/18 16:00 72 08/07/18 16:00 97.1 77 16 131/88 (102) 100 08/07/18 13:19 78 18 99 Room Air 21 08/07/18 13:09 78 18 97 Room Air 21 08/07/18 12:00 83 08/07/18 12:00 97.1 85 16 134/77 (96) 98 08/07/18 09:00 Room Air 08/07/18 08:33 85 146/95 08/07/18 08:33 85 146/95 08/07/18 08:33 146/95 08/07/18 08:32 146/95 08/07/18 08:00 98.9 85 16 146/95 (112) 97 08/07/18 08:00 86 Intake and Output 08/07/18 08/08/18 19:00 07:00 Intake Total 720 ml Output Total 400 ml Balance 320 ml Intake Oral 720 ml Output Urine Total 400 ml # Voids 2 3 Laboratory Tests 08/07/18 07:30: Phosphorus Level 3.3, Magnesium Level 2.1, Total Bilirubin 0.1L, Direct Bilirubin < 0.1, Aspartate Amino Transf (AST/SGOT) 9L, Alanine Aminotransferase (ALT/SGPT) 11L, Alkaline Phosphatase 110, Total Protein 6.8, Albumin 2.9L Height (Feet): 5 Height (Inches): 11.00 Weight (Pounds): 194 General Appearance: no apparent distress EENT: normal ENT inspection Neck: supple Cardiovascular: normal rate Respiratory/Chest: decreased breath sounds Abdomen: normal bowel sounds, non tender, soft Extremities: non-tender Nikolas Shea MD Aug 08, 2018 07:26
[2018-08-08 08:00] VITALS: BP 130/99
[2018-08-08 08:17] LABS: BASOPHILS % (AUTO) 2.3 % (0.0-2.0); EOSINOPHILS % (AUTO) 14.4 % (0.0-3.0); HEMATOCRIT 32.9 % (42.0-52.0); HEMOGLOBIN 10.2 G/DL (14.2-18.0); MEAN CORPUSCULAR VOLUME 99 FL (80-99); MONOCYTES % (AUTO) 13.8 % (1.0-10.0); NEUTROPHILS % (AUTO) 47.5 % (45.0-75.0); PLATELET COUNT 223 K/UL (150-450); RED BLOOD COUNT 3.32 M/UL (4.70-6.10); WHITE BLOOD COUNT 6.9 K/UL (4.8-10.8)
[2018-08-08 08:27] LABS: ANION GAP 7 mmol/L (5-15); BLOOD UREA NITROGEN 46 mg/dL (7-18); CALCIUM 9.3 MG/DL (8.5-10.1); CARBON DIOXIDE 27 MMOL/L (21-32); CHLORIDE 104 MMOL/L (98-107); CREATININE 6.8 MG/DL (0.55-1.30); POTASSIUM 5.2 MMOL/L (3.5-5.1); SODIUM 138 MMOL/L (136-145)
[2018-08-08] MEDS: Imdur 30mg tab ORAL SCH (09:00)
[2018-08-08] MEDS: dilTIAZem HCl CD 180mg cap ORAL SCH (09:00)
[2018-08-08] MEDS: Lisinopril 20mg tab ORAL SCH ×2 (09:00→17:59)
[2018-08-08] MEDS: Heparin 5000 units/ml inj SUBQ SCH ×2 (09:00→20:39)
[2018-08-08] MEDS: Docusate 100mg cap ORAL SCH ×2 (09:07→17:59)
[2018-08-08] MEDS: Magnesium Oxide 400mg tab ORAL SCH ×3 (09:07→17:59)
[2018-08-08] MEDS: LORazepam 1mg tab ORAL SCH ×3 (09:07→17:59)
--- NOTE | 2018-08-08 10:59 | Nephrology Progress Note ---
Assessment/Plan Problem List: (1) Renal failure (ARF), acute on chronic (2) Cocaine abuse (3) Acute exacerbation of CHF (congestive heart failure) (4) Hypertensive cardiomegaly with heart failure (5) Volume overload Assessment Acute on Chronic renal failure Anemia Elevated troponin Hypertensive renal and heart disease Cocaine abuse Cardiomyopathy Plan next HD 08/08- DC muscle relaxant and Neurontin Ativan TID readjust bp meds and pain meds discussed with RN head CT results Negative for acute intracranial bleed or mass effect Atrophy and some calcification of the right optic globe. Correlate with clinical findings transfuse one unit 07/[address] Moura 2D Echo 55% ej fx BRIDGETT kidneys * Mild fullness of the bilateral renal collecting systems without radiographically appreciable stone and observed bilateral ureteral jets. Findings may be related to mild bladder distention. Consider repeat exam after bladder decompression. monitor renal parameters Avoid nephrotoxics renal diet flomax Subjective ROS Limited/Unobtainable: No Constitutional: Reports: malaise, other - tremors Objective Objective Last 24 Hour Vital Signs Date Time Temp Pulse Resp B/P (MAP) Pulse Ox O2 Delivery O2 Flow Rate FiO2 08/08/18 09:00 66 130/99 08/08/18 09:00 66 130/99 08/08/18 09:00 130/99 08/08/18 09:00 130/99 08/08/18 09:00 Room Air 08/08/18 08:00 80 08/08/18 08:00 98.1 66 21 130/99 (109) 100 08/08/18 07:11 Room Air 21 08/08/18 07:11 96 Room Air 21 08/08/18 07:11 Room Air 21 08/08/18 07:11 Room Air 21 08/08/18 04:37 75 08/08/18 04:36 98.0 75 20 136/85 (102) 100 08/08/18 01:09 Room Air 08/08/18 01:09 Room Air 08/08/18 00:26 98.4 71 18 135/78 (97) 98 08/08/18 00:00 73 08/07/18 21:36 97.9 08/07/18 21:00 Room Air 08/07/18 20:55 76 145/85 08/07/18 20:00 81 08/07/18 20:00 97.9 76 19 145/85 (105) 97 08/07/18 19:48 81 18 98 Room Air 21 08/07/18 19:34 80 20 Room Air 21 08/07/18 19:34 Room Air 21 08/07/18 19:33 97 Room Air 21 08/07/18 19:30 80 20 96 Room Air 21 08/07/18 17:14 131/88 08/07/18 16:00 72 08/07/18 16:00 97.1 77 16 131/88 (102) 100 08/07/18 13:19 78 18 99 Room Air 21 08/07/18 13:09 78 18 97 Room Air 21 08/07/18 12:00 83 08/07/18 12:00 97.1 85 16 134/77 (96) 98 Intake and Output 08/07/18 08/08/18 18:59 06:59 Intake Total 720 ml Output Total 400 ml Balance 320 ml Intake Oral 720 ml Output Urine Total 400 ml # Voids 2 3 Laboratory Tests 08/08/18 06:25: White Blood Count 6.9, Red Blood Count 3.32L, Hemoglobin 10.2L, Hematocrit 32.9L , Mean Corpuscular Volume 99, Mean Corpuscular Hemoglobin 30.6, Mean Corpuscular Hemoglobin Concent 30.9L, Red Cell Distribution Width 15.0H, Platelet Count 223, Mean Platelet Volume 7.1, Neutrophils (%) (Auto) 47.5, Lymphocytes (%) (Auto) 22.0, Monocytes (%) (Auto) 13.8H, Eosinophils (%) (Auto) 14.4H, Basophils (%) (Auto) 2.3H, Sodium Level 138, Potassium Level 5.2H, Chloride Level 104, Carbon Dioxide Level 27, Anion Gap 7, Blood Urea Nitrogen 46H, Creatinine 6.8H, Estimat Glomerular Filtration Rate 10.2, Glucose Level 86 , Calcium Level 9.3 Height (Feet): 5 Height (Inches): 11.00 Weight (Pounds): 194 General Appearance: lethargic Cardiovascular: tachycardia Respiratory/Chest: decreased breath sounds Abdomen: distended Objective no other change Richar Cm MD Aug 08, 2018 10:59
[2018-08-08 11:14] LABS: PHOSPHORUS 3.7 MG/DL (2.5-4.9)
[2018-08-08 12:00] VITALS: BP 140/85
--- NOTE | 2018-08-08 13:11 | Pulmonology Progress Note ---
Assessment/Plan Problems: (1) Acute exacerbation of CHF (congestive heart failure) (2) Hypertensive cardiomegaly with heart failure (3) ACS (acute coronary syndrome) (4) Cocaine abuse (5) ARF (acute renal failure) (6) DDD (degenerative disc disease) (7) Epistaxis (8) Hypercapnic respiratory failure Assessment/Plan ASSESSMENT: The patient is a 58-year-old male with history of cocaine and tobacco abuse, congestive heart failure, and renal impairment, presenting with decompensated heart failure and abnormal renal function with marked uremia. He has previously been told he needs dialysis. He is now being admitted for acute coronary syndrome and likely need for dialysis. PROBLEM LIST: 1. Congestive heart failure with acute decompensated heart failure. 2. Abnormal renal function, likely cardiorenal syndrome now on HD 3. History of cocaine abuse with current positive tox screen. 4. Anemia/DARSHANA 5. Hypertension with hypertensive urgency. 6. Acute coronary syndrome/non-ST elevation myocardial infarction. 7. Acute on chronic LBP with radiculopathy ---> DDD/SS TREATMENT PLAN: -BiPAP 12/5 qHS and PRN - ENCOURAGE NOCTURNAL COMPLIANCE -Titrate FiO2 -HHN's -HD per renal with UF as able -Control BP -F/U cards and renal recs -F/U heme recs -F/U GI recs ---> plan for outpatient EGD/colo -DVT Px: hep SQ -Pain control/supportive care - minimize narcotics/sedatives -F/U pain management recs -Appreciate psych eval, has capacity, F/U recs -F/U neuro recs, F/U EEG -SW assistance in placement Subjective Allergies: Coded Allergies: No Known Allergies (Unverified , 07/08/18) Subjective Events reviewed, AFVSS, on RA More alert today no sig SOB, no CP, no F/C Objective Last 24 Hour Vital Signs Date Time Temp Pulse Resp B/P (MAP) Pulse Ox O2 Delivery O2 Flow Rate FiO2 08/08/18 13:02 85 18 99 Room Air 21 08/08/18 12:57 79 16 96 Room Air 21 08/08/18 12:00 86 08/08/18 12:00 98.0 89 21 140/85 (103) 98 08/08/18 09:00 66 130/99 1/26/19 09:00 66 130/99 08/08/18 09:00 130/99 08/08/18 09:00 130/99 08/08/18 09:00 Room Air 08/08/18 08:00 80 08/08/18 08:00 98.1 66 21 130/99 (109) 100 08/08/18 07:11 Room Air 21 08/08/18 07:11 96 Room Air 21 08/08/18 07:11 Room Air 21 08/08/18 07:11 Room Air 21 08/08/18 04:37 75 08/08/18 04:36 98.0 75 20 136/85 (102) 100 08/08/18 01:09 Room Air 08/08/18 01:09 Room Air 08/08/18 00:26 98.4 71 18 135/78 (97) 98 08/08/18 00:00 73 08/07/18 21:36 97.9 08/07/18 21:00 Room Air 08/07/18 20:55 76 145/85 08/07/18 20:00 81 08/07/18 20:00 97.9 76 19 145/85 (105) 97 08/07/18 19:48 81 18 98 Room Air 21 08/07/18 19:34 80 20 Room Air 21 08/07/18 19:34 Room Air 21 08/07/18 19:33 97 Room Air 21 08/07/18 19:30 80 20 96 Room Air 21 08/07/18 17:14 131/88 08/07/18 16:00 72 08/07/18 16:00 97.1 77 16 131/88 (102) 100 08/07/18 13:19 78 18 99 Room Air 21 Intake and Output 08/07/18 08/08/18 18:59 06:59 Intake Total 720 ml Output Total 400 ml Balance 320 ml Intake Oral 720 ml Output Urine Total 400 ml # Voids 2 3 General Appearance: WD/WN, no acute distress HEENT: normocephalic, atraumatic, anicteric, mucous membranes moist Respiratory/Chest: chest wall non-tender, lungs clear, normal breath sounds, no respiratory distress Cardiovascular: normal peripheral pulses, normal rate, regular rhythm Abdomen: normal bowel sounds, soft, non tender, no organomegaly, non distended , no mass Extremities: no cyanosis, no clubbing, other - trace edema Laboratory Tests 08/08/18 06:25: White Blood Count 6.9, Red Blood Count 3.32L, Hemoglobin 10.2L, Hematocrit 32.9L , Mean Corpuscular Volume 99, Mean Corpuscular Hemoglobin 30.6, Mean Corpuscular Hemoglobin Concent 30.9L, Red Cell Distribution Width 15.0H, Platelet Count 223, Mean Platelet Volume 7.1, Neutrophils (%) (Auto) 47.5, Lymphocytes (%) (Auto) 22.0, Monocytes (%) (Auto) 13.8H, Eosinophils (%) (Auto) 14.4H, Basophils (%) (Auto) 2.3H, Sodium Level 138, Potassium Level 5.2H, Chloride Level 104, Carbon Dioxide Level 27, Anion Gap 7, Blood Urea Nitrogen 46H, Creatinine 6.8H, Estimat Glomerular Filtration Rate 10.2, Glucose Level 86 , Calcium Level 9.3, Phosphorus Level 3.7, Magnesium Level 2.4 Current Medications Medications (Trade) Dose Ordered Sig/Harish Route PRN Reason Start Time Stop Time Status Last Admin Dose Admin Acetaminophen (Tylenol) 650 mg Q4H PRN ORAL Mild Pain/Temp > 100.5 07/26/18 22:00 08/25/18 21:59 07/27/18 02:11 Acetaminophen/ Hydrocodone Bitart ([place] 10/325) 1 tab Q4H PRN ORAL Severe Pain (Pain Scale 7-10) 08/03/18 19:45 08/10/18 19:44 08/07/18 21:06 Albuterol/ Ipratropium (Albuterol/ Ipratropium) 3 ml Q4H PRN HHN Shortness of Breath 08/06/18 21:37 08/11/18 21:36 Albuterol/ Ipratropium (Albuterol/ Ipratropium) 3 ml Q6HRT HHN 08/07/18 01:00 08/12/18 00:59 08/08/18 13:02 Chlorhexidine Gluconate (Laurel-Hex 2%) 1 applic DAILY@1999 TOPIC 07/27/18 20:00 08/25/18 19:59 08/07/18 20:00 Clonidine HCl (Catapres Tab) 0.1 mg Q4H PRN ORAL bp over 165 syst 07/26/18 22:00 08/25/18 21:59 07/31/18 12:59 Diltiazem HCl (Cardizem CD) 360 mg DAILY ORAL 08/01/18 09:00 08/25/18 08:59 08/07/18 08:33 Docusate Sodium (Colace) 100 mg TWICE A DAY ORAL 08/08/18 09:00 09/07/18 08:59 08/08/18 09:07 Epoetin Juan Pablo (Procrit (for ESRD on dialysis)) 8,000 units FRI-FRI-FRI SUBQ 07/29/18 21:00 08/28/18 20:59 08/05/18 20:59 Heparin Sodium (Porcine) (Heparin 5000 units/ml) 5,000 units EVERY 12 HOURS SUBQ 07/27/18 09:00 08/14/18 21:59 08/07/18 20:56 Iron Sucrose 100 mg/Sodium Chloride 60 ml @ 240 mls/hr BEDTIME IV 08/05/18 21:00 08/09/18 21:14 08/07/18 20:54 Isosorbide Mononitrate (Imdur) 60 mg DAILY ORAL 07/27/18 09:00 08/11/18 08:59 08/07/18 08:33 Lisinopril (Prinivil) 20 mg BID ORAL 07/27/18 09:00 08/19/18 08:59 08/07/18 17:14 Lorazepam (Ativan) 1 mg THREE TIMES A DAY ORAL 08/07/18 13:00 08/14/18 12:59 08/08/18 12:43 Magnesium Oxide (Mag-Ox 400mg) 400 mg THREE TIMES A DAY ORAL 08/02/18 13:00 09/01/18 12:59 08/08/18 12:43 Metoprolol Tartrate (Lopressor) 100 mg Q12HR ORAL 07/27/18 09:00 08/22/18 20:59 08/07/18 20:55 Mirtazapine (Remeron) 15 mg BEDTIME ORAL 08/07/18 21:00 09/06/18 20:59 08/07/18 20:54 Pantoprazole (Protonix) 40 mg DAILY ORAL 08/07/18 09:00 09/06/18 08:59 08/08/18 09:07 Polyethylene Glycol (Miralax) 17 gm DAILYPRN PRN ORAL Constipation 08/04/18 16:15 09/03/18 16:14 Sevelamer Carbonate (Renvela) 1,600 mg THREE TIMES A DAY ORAL 08/04/18 13:00 08/08/18 17:59 08/08/18 12:43 Tamsulosin HCl (Flomax) 0.4 mg QHS ORAL 07/27/18 21:00 08/09/18 12:52 08/07/18 20:54 Edgard Webb MD Aug 08, 2018 13:11
--- NOTE | 2018-08-08 13:37 | Neurology Progress Note ---
Interim History Interim History Interim History Mr. Neal feels better. He is awake today but still not completely alert. He continues to be significantly encephalopathic and is more aware of it today. The abnormal body jerks are a little better but still bothersome. He continues to be cognitively impoverished. He continues to be motorically challenged. He denies any new neurologic symptoms. He is undergoing HD now. Review of Systems Neuro Review of Systems Benign. Objective Physical Exam Last Vital Signs Date Time Temp Pulse Resp B/P (MAP) Pulse Ox O2 Delivery O2 Flow Rate FiO2 08/08/18 13:02 85 18 99 Room Air 21 08/08/18 12:00 98.0 140/85 (103) 08/05/18 20:33 2.0 Laboratory Tests Test 08/08/18 06:25 White Blood Count 6.9 K/UL (4.8-10.8) Red Blood Count 3.32 M/UL (4.70-6.10) L Hemoglobin 10.2 G/DL (14.2-18.0) L Hematocrit 32.9 % (42.0-52.0) L Mean Corpuscular Volume 99 FL (80-99) Mean Corpuscular Hemoglobin 30.6 PG (27.0-31.0) Mean Corpuscular Hemoglobin Concent 30.9 G/DL (32.0-36.0) L Red Cell Distribution Width 15.0 % (11.6-14.8) H Platelet Count 223 K/UL (150-450) Mean Platelet Volume 7.1 FL (6.5-10.1) Neutrophils (%) (Auto) 47.5 % (45.0-75.0) Lymphocytes (%) (Auto) 22.0 % (20.0-45.0) Monocytes (%) (Auto) 13.8 % (1.0-10.0) H Eosinophils (%) (Auto) 14.4 % (0.0-3.0) H Basophils (%) (Auto) 2.3 % (0.0-2.0) H Sodium Level 138 MMOL/L (136-145) Potassium Level 5.2 MMOL/L (3.5-5.1) H Chloride Level 104 MMOL/L (98-107) Carbon Dioxide Level 27 MMOL/L (21-32) Anion Gap 7 mmol/L (5-15) Blood Urea Nitrogen 46 mg/dL (7-18) H Creatinine 6.8 MG/DL (0.55-1.30) H Estimat Glomerular Filtration Rate 10.2 mL/min (>60) Glucose Level 86 MG/DL (74-106) Calcium Level 9.3 MG/DL (8.5-10.1) Phosphorus Level 3.7 MG/DL (2.5-4.9) Magnesium Level 2.4 MG/DL (1.8-2.4) Neurologic Exam Objective PHYSICAL EXAMINATION: GENERAL: He is a well-developed and well-nourished black gentleman, lying in bed, in no acute distress. He is less encephalopathic. HEAD: Normocephalic and atraumatic. NECK: No neck rigidity was observed. EENT: Examination benign. SPINE: Cervical, thoracic, and lumbosacral spine revealed no tenderness and no paraspinal muscle spasm, but decreased range of motion. NEUROLOGICAL EXAMINATION: MENTAL STATUS EXAMINATION: He was awake, but not completely alert. His cerebration was minimally faster. He was oriented to self and hospital, but did not know the name of the hospital. He knew it was July, but did not know the date or the year. He was able to recall 3/3 words immediately, but could not remember any of them in 1 minute and 3 minutes. He was able to remember presidents Trump and Obama only. His mathematical skills were impaired. His visuospatial function was also impaired. SPEECH: He had a mild dysarthria. LANGUAGE: He had a mild anomia. CRANIAL NERVE EXAMINATION: II: He was able to count fingers correctly in the left eye. He had right-sided phthisis bulbi. He was unable to cooperate for confrontation testing. III, IV & : External ocular movements were present, but incomplete in the left eye. In the right eye ocular movements were significantly diminished. The left pupil was 3 mm and reactive sluggishly to light. V: He had normal facial sensations and the temporales, masseters, and pterygoids functioned normally. VII: He had normal facial expressions and no facial asymmetry. VIII: He was able to hear well and had no nystagmus. IX: The palate moved symmetrically on phonation. X: He had no hoarseness of voice. XI: The sternocleidomastoids and trapezii functioned normally. XII: The tongue was in the midline without any fasciculations or atrophy. MOTOR SYSTEM: The tone was normal in all four extremities. Examination of muscle mass revealed no focal wasting. Examination of power was exceedingly difficult to perform because he was unable to give a good motor effort due to severe asterixis. SENSORY EXAMINATION: He responded appropriately to deep pain, but was unable to cooperate for other sensory modalities. REFLEXES: 0 at the biceps, triceps, brachioradialis, knees, and ankles. The plantar responses were flexor bilaterally. COORDINATION: He was unable to perform [id number] or [id number]-nz-[id number] testing. STANCE & GAIT: Could not be tested. ABNORMAL MOVEMENTS: Asterixis: Of a generalized nature G 2/4. Myoclonus: G Trace/4. Impression/Recommendations Diagnostic Impression 1. Mr. Bg Neal is a 58-year-old, right-handed, black gentleman, who was hospitalized on 07/08/2018 for shortness of breath and was found to have renal failure, respiratory failure, congestive heart failure, and was intoxicated with cocaine. Since then, he has been treated for these problems. He has been exhibiting some abnormal generalized body jerks and other abnormal movements for which I was called in to evaluate him. He does also have a history of degenerative joint disease involving the lumbosacral spine, but denies any significant back pain at this time. 2. He feels better. He is awake today but still not completely alert. He continues to be significantly encephalopathic and is more aware of it today. The abnormal body jerks are a little better but still bothersome. He continues to be cognitively impoverished. He continues to be motorically challenged. He denies any new neurologic symptoms. He is undergoing HD now. 3. On neurological examination, at this time, he is awake but not completely alert. His cerebration is minimally faster. He is oriented to self and hospital and July only. His recent and remote memory is poor. His mathematical skills are impaired. His visuospatial function is also impaired. He has a mild dysarthria. He has a mild anomia. He has right-sided phthisis bulbi. He is unable to give a good motor effort due to severe asterixis. He is unable to cooperate for sensory testing because he is unable to pay attention. His deep tendon reflexes are globally absent, but his plantar responses are flexor. He is unable to stand and walk because of severe asterixis. He exhibits constant asterixis but the myoclonus has improved. 4. His laboratory data on my initial evaluation revealed that he was anemic with a hemoglobin of 9.6 G. His latest chemistry panel revealed a potassium elevated at 5.5, a BUN elevated at 41, and a creatinine elevated at 6.4. His last toxicology screen performed on 07/08/2018, was positive for cocaine. 5. His repeat ABG done on 08/06/18 revealed a pH=7.36, pCO2=48, pO2=77. 6. The CT of the brain done on 08/06/18 was benign. 7. The EEG revealed a moderate metabolic encephalopathy. 8. The patient's history, neurological examination, and laboratory data are most compatible with moderately severe encephalopathy. The known reasons for encephalopathy at this point in time include renal dysfunction, respiratory dysfunction, congestive heart failure, and the mind-altering drugs that have been given to him. Recommendations 1. Would correct all known metabolic abnormalities. 2. Refrain from use of all mind-altering drugs. 3. Observe. Eriberto Berg M.D., M.S.P.H. Eriberto Berg MD Aug 08, 2018 13:37
--- NOTE | 2018-08-08 14:32 | Cardiac Electrophysiology PN ---
Assessment/Plan Assessment/Plan 1. Troponin leak in the setting of cocaine use and renal failure. Levels are flat and low. Avoid beta-pablo for active cocaine use. On aspirin and Lipitor. EF 45%. No CP 2. Hypertension. On Cardizem 360 daily, Metoprolol 100 bid, Imdur 60, Lisinopril 20 bid and HD 3. End-stage renal disease on HD by Dr. Cm 4. Substance use with cocaine. 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 5. Recent pneumonia. 6. Congestive heart failure with EF 45% 7. Anemia s/p PRBCs . JEANA RN Subjective Subjective No events, CP or SOB. Getting HD today. Awaiting placement. Objective Last 24 Hour Vital Signs Date Time Temp Pulse Resp B/P (MAP) Pulse Ox O2 Delivery O2 Flow Rate FiO2 08/08/18 13:02 85 18 99 Room Air 21 08/08/18 12:57 79 16 96 Room Air 21 08/08/18 12:00 86 08/08/18 12:00 98.0 89 21 140/85 (103) 98 08/08/18 09:00 66 130/99 08/08/18 09:00 66 130/99 08/08/18 09:00 130/99 08/08/18 09:00 130/99 08/08/18 09:00 Room Air 08/08/18 08:00 80 08/08/18 08:00 98.1 66 21 130/99 (109) 100 08/08/18 07:11 Room Air 21 08/08/18 07:11 96 Room Air 21 08/08/18 07:11 Room Air 21 08/08/18 07:11 Room Air 21 08/08/18 04:37 75 08/08/18 04:36 98.0 75 20 136/85 (102) 100 08/08/18 01:09 Room Air 08/08/18 01:09 Room Air 08/08/18 00:26 98.4 71 18 135/78 (97) 98 08/08/18 00:00 73 08/07/18 21:36 97.9 08/07/18 21:00 Room Air 08/07/18 20:55 76 145/85 08/07/18 20:00 81 08/07/18 20:00 97.9 76 19 145/85 (105) 97 08/07/18 19:48 81 18 98 Room Air 21 08/07/18 19:34 80 20 Room Air 21 08/07/18 19:34 Room Air 21 08/07/18 19:33 97 Room Air 21 08/07/18 19:30 80 20 96 Room Air 21 08/07/18 17:14 131/88 08/07/18 16:00 72 08/07/18 16:00 97.1 77 16 131/88 (102) 100 Intake and Output 08/07/18 08/08/18 18:59 06:59 Intake Total 720 ml Output Total 400 ml Balance 320 ml Intake Oral 720 ml Output Urine Total 400 ml # Voids 2 3 Laboratory Tests Test 08/08/18 06:25 White Blood Count 6.9 K/UL (4.8-10.8) Red Blood Count 3.32 M/UL (4.70-6.10) L Hemoglobin 10.2 G/DL (14.2-18.0) L Hematocrit 32.9 % (42.0-52.0) L Mean Corpuscular Volume 99 FL (80-99) Mean Corpuscular Hemoglobin 30.6 PG (27.0-31.0) Mean Corpuscular Hemoglobin Concent 30.9 G/DL (32.0-36.0) L Red Cell Distribution Width 15.0 % (11.6-14.8) H Platelet Count 223 K/UL (150-450) Mean Platelet Volume 7.1 FL (6.5-10.1) Neutrophils (%) (Auto) 47.5 % (45.0-75.0) Lymphocytes (%) (Auto) 22.0 % (20.0-45.0) Monocytes (%) (Auto) 13.8 % (1.0-10.0) H Eosinophils (%) (Auto) 14.4 % (0.0-3.0) H Basophils (%) (Auto) 2.3 % (0.0-2.0) H Sodium Level 138 MMOL/L (136-145) Potassium Level 5.2 MMOL/L (3.5-5.1) H Chloride Level 104 MMOL/L (98-107) Carbon Dioxide Level 27 MMOL/L (21-32) Anion Gap 7 mmol/L (5-15) Blood Urea Nitrogen 46 mg/dL (7-18) H Creatinine 6.8 MG/DL (0.55-1.30) H Estimat Glomerular Filtration Rate 10.2 mL/min (>60) Glucose Level 86 MG/DL (74-106) Calcium Level 9.3 MG/DL (8.5-10.1) Phosphorus Level 3.7 MG/DL (2.5-4.9) Magnesium Level 2.4 MG/DL (1.8-2.4) Objective HEAD AND NECK: No JVD. LUNGS: Clear CARDIOVASCULAR: Regular S1 and S2 with no gallop or murmur. ABDOMEN: Soft. EXTREMITIES: 1 plus pitting edema. German Gray MD Aug 08, 2018 14:32
[2018-08-08 16:00] VITALS: BP_SYST 145; BP_SYST 157; BP_DIAS 75; BP_DIAS 86
--- NOTE | 2018-08-08 19:35 | General Progress Note ---
Assessment/Plan Assessment/Plan # Anemia of iron deficiency, multifactorial, curtis on ckd --> Anemia w/u has been reviewed, no eric noted --> No evidence of hemolysis is noted, peripheral smear is wnl --> Hgb goal >7. Transfuse prn. --> continue on epo sq, reviewed renal recs --> on iron iv, has been given 5 doses of venofer 08/05 --> s/p blood transfusion # Congestive heart failure with acute decompensated heart failure. --> per cards management --> In tele unit --> on diuresis # Curtis, likely cardiorenal syndrome. --> Nephrology is following appreciate recs --> HD 08/08/18 --> BRIDGETT kidneys with minimal fullness, seen by renal, echogenicity is wnl # History of cocaine abuse with current positive tox screen. --> recommend cessation # Hypertension with hypertensive urgency. --> On Norvasc 5 mg bid, Hydralazine,Imdur and Clonidine patch as needed --> Avoid beta-blockers for active cocaine us # Acute coronary syndrome/non-ST elevation myocardial infarction. --> per cards The date and time note entered does not reflect time and date patient was seen. GREATLY APPRECIATE CONSULTATION. Subjective Constitutional: Denies: no symptoms, chills, diaphoresis, fever, malaise, weakness, other HEENT: Denies: no symptoms, eye pain, blurred vision, tearing, double vision, ear pain, ear discharge, nose pain, nose congestion, throat pain, throat swelling, mouth pain, mouth swelling, other Cardiovascular: Denies: no symptoms, chest pain, edema, irregular heart rate, lightheadedness, palpitations, syncope, other Respiratory: Denies: no symptoms, cough, orthopnea, shortness of breath, SOB with excertion, SOB at rest, sputum, stridor, wheezing, other Neurologic/Psychiatric: Denies: no symptoms, anxiety, depressed, emotional problems, headache, numbness, paresthesia, pre-existing deficit, seizure, tingling, tremors, weakness, other Hematologic/Lymphatic: Denies: no symptoms, anemia, easy bleeding, easy bruising, other Allergies: Coded Allergies: No Known Allergies (Unverified , 07/08/18) Subjective 07/12: no events, cr trending, h/h stable, on epo 07/14: transfuse one unit 07/13, diruresed, refused mendez, seen by cards, bp better 07/15 : Pt is seen in the room, awake and alert, S/P blood transfusion, refusing HD 07/16 : Pt is awake and resting in bed. waiting on sister to make HD decision, no events 07/17 Pt is seen in the room,awake and alert, appears to be agreeable for placement of dialysis cath and dialysis . 07/18: Pt is seen in the room, No CP or SOB. Had HD today. 07/19: Pt is awake and resting in bed. Denies pain, SOB or fevers and chills. Has HD scheduled for 07/20/18, currently stable. 07/20: received hand held nebulizer, no other events, no f.c 07/21 : Pt seen by bedside, continues on breathing treatment, HD 07/22/18, no events 07/22: pending snf placement and outpatient hd 07/23: awake and resting in bed. no acute events, waiting placement and outpatient HD 07/24: no major events, waiting placement, seen by gi, recs reviewed, no complaints, on epo 07/25: CXR for patient c/o sob. O2 2L via NC administered. patient is A/A/Ox4. patient BLE edematous 07/26: Continues on oxygen of 3L/min via N/C. no acute respiratory distress is noted. Permacath to right chest for HD is intact 07/27: awake and comfortable, alert and oriented , next HD 07/28 07/28: Pt is seen by bedside, bipap is D/C, HD scheduled today, no events 07/29: Pt is awake and calm, Denies pain, SOB or fevers and chills, next HD 07/30. 07/30: hd pending, no major events, some sob 07/31: no complaints this am, r permacath in chest without issue, placement pending 08/04: pt is seen by bedside, awake, comfortable, waiting HD. 08/05: bp is much better controlled this am, no fevers or chills, refusing some labs; 08/06: seen by bedside, awake, comfortable, HD today, no events 08/07: Pt is awake, comfortable, eating breakfast, HD 08/08. , hgb 9.5,plt 177. 08/08: seen by bedside awake, no events. Getting HD today. Awaiting placement. Objective Last 24 Hour Vital Signs Date Time Temp Pulse Resp B/P (MAP) Pulse Ox O2 Delivery O2 Flow Rate FiO2 08/08/18 19:26 106 20 99 Room Air 21 08/08/18 19:13 Room Air 21 08/08/18 19:13 103 20 98 Room Air 21 08/08/18 19:13 98 Room Air 08/08/18 17:59 157/86 08/08/18 16:00 97.7 94 20 157/86 (109) 90 08/08/18 16:00 94 08/08/18 13:02 85 18 99 Room Air 08/08/18 12:57 79 16 96 Room Air 08/08/18 12:00 86 08/08/18 12:00 98.0 89 21 140/85 (103) 98 08/08/18 09:00 66 130/99 08/08/18 09:00 66 130/99 08/08/18 09:00 130/99 08/08/18 09:00 130/99 08/08/18 09:00 Room Air 08/08/18 08:00 80 08/08/18 08:00 98.1 66 21 130/99 (109) 100 08/08/18 07:11 Room Air 08/08/18 07:11 96 Room Air 08/08/18 07:11 Room Air 08/08/18 07:11 Room Air 08/08/18 04:37 75 08/08/18 04:36 98.0 75 20 136/85 (102) 100 08/08/18 01:09 Room Air 08/08/18 01:09 Room Air 08/08/18 00:26 98.4 71 18 135/78 (97) 98 08/08/18 00:00 73 08/07/18 21:36 97.9 08/07/18 21:00 Room Air 08/07/18 20:55 76 145/85 08/07/18 20:00 81 08/07/18 20:00 97.9 76 19 145/85 (105) 97 08/07/18 19:48 81 18 98 Room Air 21 08/07/18 19:34 80 20 Room Air 21 08/07/18 19:34 Room Air 21 Intake and Output 08/07/18 08/08/18 19:00 07:00 Intake Total 720 ml Output Total 400 ml Balance 320 ml Intake Oral 720 ml Output Urine Total 400 ml # Voids 2 3 Laboratory Tests 08/08/18 06:25: White Blood Count 6.9, Red Blood Count 3.32L, Hemoglobin 10.2L, Hematocrit 32.9L , Mean Corpuscular Volume 99, Mean Corpuscular Hemoglobin 30.6, Mean Corpuscular Hemoglobin Concent 30.9L, Red Cell Distribution Width 15.0H, Platelet Count 223, Mean Platelet Volume 7.1, Neutrophils (%) (Auto) 47.5, Lymphocytes (%) (Auto) 22.0, Monocytes (%) (Auto) 13.8H, Eosinophils (%) (Auto) 14.4H, Basophils (%) (Auto) 2.3H, Sodium Level 138, Potassium Level 5.2H, Chloride Level 104, Carbon Dioxide Level 27, Anion Gap 7, Blood Urea Nitrogen 46H, Creatinine 6.8H, Estimat Glomerular Filtration Rate 10.2, Glucose Level 86 , Calcium Level 9.3, Phosphorus Level 3.7, Magnesium Level 2.4 Height (Feet): 5 Height (Inches): 11.00 Weight (Pounds): 194 Objective Physical Exam General Appearance: A+O x2 NAD HEENT: normocephalic, atraumatic, R permacath Neck: non-tender, normal alignment Respiratory/Chest: chest wall non-tender, lungs clear Cardiovascular/Chest: normal peripheral pulses, normal rate Abdomen: normal bowel sounds, non tender Extremities: normal range of motion Shane Mary MD Aug 08, 2018 19:35
[2018-08-08 20:00] VITALS: BP 160/86
[2018-08-08] MEDS: Tamsulosin 0.4mg cap ORAL SCH (20:36)
[2018-08-08] MEDS: Iron Sucrose 100 MG in NS 55 ML IV SCH (20:36)
[2018-08-08] MEDS: Dyna-Hex 2% Top Sol 2oz TOPIC SCH (20:37)
[2018-08-09] VITALS (7 sets, daily range): BP systolic 118–168; BP diastolic 74–110
[2018-08-09] MEDS: Albuterol/Ipratropium 3ml neb HHN SCH ×4 (01:00→19:59)
--- NOTE | 2018-08-09 07:48 | General Progress Note ---
Assessment/Plan Problem List: (1) Lumbar spondylosis ICD Codes: M47.816 - Spondylosis without myelopathy or radiculopathy, lumbar region SNOMED: 873532010 (2) Renal failure (ARF), acute on chronic ICD Codes: N17.9 - Acute kidney failure, unspecified; N18.9 - Chronic kidney disease, unspecified SNOMED: 411380647 (3) Pancreatitis ICD Codes: K85.90 - Acute pancreatitis without necrosis or infection, unspecified SNOMED: 95570436 (4) Macrocytic anemia ICD Codes: D53.9 - Nutritional anemia, unspecified SNOMED: 19046846 (5) Iron deficiency ICD Codes: E61.1 - Iron deficiency SNOMED: 97285049 (6) Constipation ICD Codes: K59.00 - Constipation, unspecified SNOMED: 31365953 (7) MDD (major depressive disorder) ICD Codes: F32.9 - Major depressive disorder, single episode, unspecified SNOMED: 187233288 (8) Cocaine abuse ICD Codes: F14.10 - Cocaine abuse, uncomplicated SNOMED: 42495000 Assessment/Plan Pancreatitis now resolved Hepatitis panel negative history of hernia repair Stable H&H Okay for DC per GI standpoint OB stool r/o GI bleed not collected...re ordered monitor H&H, prn transfusions bowel regime, ppi venofer renal diet fu labs outpatient GI procedures Subjective ROS Limited/Unobtainable: Yes Allergies: Coded Allergies: No Known Allergies (Unverified , 07/08/18) Subjective no event over night Objective Last 24 Hour Vital Signs Date Time Temp Pulse Resp B/P (MAP) Pulse Ox O2 Delivery O2 Flow Rate FiO2 08/09/18 05:26 78 12 98 Facial 21 08/09/18 04:00 97.9 91 19 158/110 (126) 99 08/09/18 04:00 89 08/09/18 03:52 86 18 98 Bi-pap 21 08/09/18 03:47 86 11 98 Facial 21 08/09/18 01:22 Room Air 21 08/09/18 01:22 Room Air 21 08/09/18 00:00 92 08/09/18 00:00 97.3 94 19 147/106 (120) 100 08/08/18 21:00 Room Air 08/08/18 20:36 107 160/86 08/08/18 20:00 99.0 107 19 160/86 (110) 97 08/08/18 20:00 104 08/08/18 19:26 106 20 99 Room Air 21 08/08/18 19:13 Room Air 21 08/08/18 19:13 103 20 98 Room Air 21 08/08/18 19:13 98 Room Air 21 08/08/18 17:59 157/86 08/08/18 16:00 97.7 94 20 157/86 (109) 90 08/08/18 16:00 94 08/08/18 13:02 85 18 99 Room Air 21 08/08/18 12:57 79 16 96 Room Air 21 08/08/18 12:00 86 08/08/18 12:00 98.0 89 21 140/85 (103) 98 08/08/18 09:00 66 130/99 08/08/18 09:00 66 130/99 08/08/18 09:00 130/99 08/08/18 09:00 130/99 08/08/18 09:00 Room Air 08/08/18 08:00 80 08/08/18 08:00 98.1 66 21 130/99 (109) 100 Intake and Output 08/08/18 08/09/18 19:00 07:00 Output Total 1200 ml Balance -1200 ml Output Urine Total 1200 ml # Voids 4 Height (Feet): 5 Height (Inches): 11.00 Weight (Pounds): 190 General Appearance: no apparent distress EENT: normal ENT inspection Neck: supple Cardiovascular: normal rate Respiratory/Chest: decreased breath sounds Abdomen: normal bowel sounds, non tender, soft Extremities: non-tender Nikolas Shea MD Aug 09, 2018 07:48
--- NOTE | 2018-08-09 08:05 | General Progress Note ---
Assessment/Plan Assessment/Plan (1) Lumbar DDD (2) Lumbar Spondylosis (3) Cocaine Abuse Patient will be continued on Baclofen and [place] as needed. D/w Dr. Rosado and he concurred. Subjective Date patient seen: Aug 09, 2018 Time patient seen: 07:00 - am Allergies: Coded Allergies: No Known Allergies (Unverified , 07/08/18) Subjective REVIEW OF SYSTEMS: Denies rash, fever, chills, sweating, dizziness, drowsiness, blurred vision, or change in weight. No chest pain. No nausea, vomiting, diarrhea, or blood in the stool or urine. No bowel or bladder incontinence. He is complaining of low back pain. SUBJECTIVE: Patient has been in bed no signs of pain or distress. The pain is worse with movement. Has not been getting the [place] since the . He has no new complaints. Objective Last 24 Hour Vital Signs Date Time Temp Pulse Resp B/P (MAP) Pulse Ox O2 Delivery O2 Flow Rate FiO2 08/09/18 05:26 78 12 98 Facial 21 08/09/18 04:00 97.9 91 19 158/110 (126) 99 08/09/18 04:00 89 08/09/18 03:52 86 18 98 Bi-pap 08/09/18 03:47 86 11 98 Facial 21 08/09/18 01:22 Room Air 21 08/09/18 01:22 Room Air 21 08/09/18 00:00 92 08/09/18 00:00 97.3 94 19 147/106 (120) 100 08/08/18 21:00 Room Air 08/08/18 20:36 107 160/86 08/08/18 20:00 99.0 107 19 160/86 (110) 97 08/08/18 20:00 104 08/08/18 19:26 106 20 99 Room Air 21 08/08/18 19:13 Room Air 21 08/08/18 19:13 103 20 98 Room Air 21 08/08/18 19:13 98 Room Air 21 08/08/18 17:59 157/86 08/08/18 16:00 97.7 94 20 157/86 (109) 90 08/08/18 16:00 94 08/08/18 13:02 85 18 99 Room Air 21 08/08/18 12:57 79 16 96 Room Air 21 08/08/18 12:00 86 08/08/18 12:00 98.0 89 21 140/85 (103) 98 08/08/18 09:00 66 130/99 08/08/18 09:00 66 130/99 08/08/18 09:00 130/99 08/08/18 09:00 130/99 08/08/18 09:00 Room Air Intake and Output 08/08/18 08/09/18 19:00 07:00 Output Total 1200 ml Balance -1200 ml Output Urine Total 1200 ml # Voids 4 Height (Feet): 5 Height (Inches): 11.00 Weight (Pounds): 190 Objective GENERAL: Alert, awake, and oriented. LUNGS: Decreased breath sounds bilaterally. HEART: S1 and S2 regular. ABDOMEN: Soft, nontender. EXTREMITIES: No CCE NEURO: No changes. James Ramirez Aug 09, 2018 08:05
[2018-08-09] MEDS: Imdur 30mg tab ORAL SCH (08:51)
[2018-08-09] MEDS: dilTIAZem HCl CD 180mg cap ORAL SCH (08:51)
[2018-08-09] MEDS: Docusate 100mg cap ORAL SCH ×2 (08:51→17:51)
[2018-08-09] MEDS: Lisinopril 20mg tab ORAL SCH ×2 (08:52→17:49)
[2018-08-09] MEDS: LORazepam 1mg tab ORAL SCH (08:52)
[2018-08-09] MEDS: Heparin 5000 units/ml inj SUBQ SCH ×2 (09:00→20:39)
[2018-08-09] MEDS: Magnesium Oxide 400mg tab ORAL SCH ×3 (09:00→17:50)
--- NOTE | 2018-08-09 12:43 | Neurology Progress Note ---
Interim History Interim History Interim History Mr. Neal feels a little better. He is awake but still not completely alert. He continues to be significantly encephalopathic but better than yesterday. The abnormal body jerks are better but still bothersome. He continues to be cognitively impoverished. He continues to be motorically challenged. He denies any new neurologic symptoms. Review of Systems Neuro Review of Systems Benign. Objective Physical Exam Last Vital Signs Date Time Temp Pulse Resp B/P (MAP) Pulse Ox O2 Delivery O2 Flow Rate FiO2 08/09/18 09:00 79 168/109 08/09/18 09:00 Room Air 08/09/18 08:59 18 99 21 08/09/18 08:00 97.5 08/05/18 20:33 2.0 Neurologic Exam Objective PHYSICAL EXAMINATION: GENERAL: He is a well-developed and well-nourished black gentleman, lying in bed, in no acute distress. He is less encephalopathic. HEAD: Normocephalic and atraumatic. NECK: No neck rigidity was observed. EENT: Examination benign. SPINE: Cervical, thoracic, and lumbosacral spine revealed no tenderness and no paraspinal muscle spasm, but decreased range of motion. NEUROLOGICAL EXAMINATION: MENTAL STATUS EXAMINATION: He was awake, but not completely alert. His cerebration was faster. He was oriented to self and hospital, but did not know the name of the hospital. He knew it was July 2018, but did not know the date. He was able to recall 3/3 words immediately, but could only remember 1/3 in 1 minute and 3 minutes. He was able to remember presidents Trump and Obama only. His mathematical skills were impaired. His visuospatial function was also impaired. SPEECH: He had a mild dysarthria. LANGUAGE: He had a mild anomia. CRANIAL NERVE EXAMINATION: II: He was able to count fingers correctly in the left eye. He had right-sided phthisis bulbi. He was unable to cooperate for confrontation testing. III, IV & : External ocular movements were present, but incomplete in the left eye. In the right eye ocular movements were significantly diminished. The left pupil was 3 mm and reactive sluggishly to light. V: He had normal facial sensations and the temporales, masseters, and pterygoids functioned normally. VII: He had normal facial expressions and no facial asymmetry. VIII: He was able to hear well and had no nystagmus. IX: The palate moved symmetrically on phonation. X: He had no hoarseness of voice. XI: The sternocleidomastoids and trapezii functioned normally. XII: The tongue was in the midline without any fasciculations or atrophy. MOTOR SYSTEM: The tone was normal in all four extremities. Examination of muscle mass revealed no focal wasting. Examination of power was exceedingly difficult to perform because he was unable to give a good motor effort due to moderate asterixis. SENSORY EXAMINATION: He responded appropriately to deep pain, but was unable to cooperate for other sensory modalities. REFLEXES: 0 at the biceps, triceps, brachioradialis, knees, and ankles. The plantar responses were flexor bilaterally. COORDINATION: He was unable to perform [id number] or [id number] testing. STANCE & GAIT: Could not be tested. ABNORMAL MOVEMENTS: Asterixis: G 2/4 in UEs and LEs. Myoclonus: G 0/4. Impression/Recommendations Diagnostic Impression 1. Mr. Bg Neal is a 58-year-old, right-handed, black gentleman, who was hospitalized on 07/08/2018 for shortness of breath and was found to have renal failure, respiratory failure, congestive heart failure, and was intoxicated with cocaine. Since then, he has been treated for these problems. He has been exhibiting some abnormal generalized body jerks and other abnormal movements for which I was called in to evaluate him. He does also have a history of degenerative joint disease involving the lumbosacral spine, but denies any significant back pain at this time. 2. He feels a little better. He is awake but still not completely alert. He continues to be significantly encephalopathic but better than yesterday. The abnormal body jerks are better but still bothersome. He continues to be cognitively impoverished. He continues to be motorically challenged. He denies any new neurologic symptoms. 3. On neurological examination, at this time, he is awake but not completely alert. His cerebration is minimally faster. He is oriented to self and hospital and July 2018 only. His recent and remote memory is poor. His mathematical skills are impaired. His visuospatial function is also impaired. He has a mild dysarthria. He has a mild anomia. He has right-sided phthisis bulbi. He is unable to give a good motor effort due to asterixis. He is unable to cooperate for sensory testing because he is unable to pay attention. His deep tendon reflexes are globally absent, but his plantar responses are flexor. He is unable to stand and walk because of asterixis. He exhibits asterixis but the myoclonus has resolved. 4. His laboratory data on my initial evaluation revealed that he was anemic with a hemoglobin of 9.6 G. His latest chemistry panel revealed a potassium elevated at 5.5, a BUN elevated at 41, and a creatinine elevated at 6.4. His last toxicology screen performed on 07/08/2018, was positive for cocaine. 5. His repeat ABG done on 08/06/18 revealed a pH=7.36, pCO2=48, pO2=77. 6. The CT of the brain done on 08/06/18 was benign. 7. The EEG revealed a moderate metabolic encephalopathy. 8. The patient's history, neurological examination, and laboratory data are most compatible with moderately severe encephalopathy. The known reasons for encephalopathy at this point in time include renal dysfunction, respiratory dysfunction, congestive heart failure, and the mind-altering drugs that have been given to him. Recommendations 1. Would correct all known metabolic abnormalities. 2. Refrain from use of all mind-altering drugs. 3. Observe. Eriberto Berg M.D., M.S.P.H. Eriberto Berg MD Aug 09, 2018 12:43
--- NOTE | 2018-08-09 13:10 | Pulmonology Progress Note ---
Assessment/Plan Problems: (1) Acute exacerbation of CHF (congestive heart failure) (2) Hypertensive cardiomegaly with heart failure (3) ACS (acute coronary syndrome) (4) Cocaine abuse (5) ARF (acute renal failure) (6) DDD (degenerative disc disease) (7) Epistaxis (8) Hypercapnic respiratory failure Assessment/Plan ASSESSMENT: The patient is a 58-year-old male with history of cocaine and tobacco abuse, congestive heart failure, and renal impairment, presenting with decompensated heart failure and abnormal renal function with marked uremia. He has previously been told he needs dialysis. He is now being admitted for acute coronary syndrome and likely need for dialysis. PROBLEM LIST: 1. Congestive heart failure with acute decompensated heart failure. 2. Abnormal renal function, likely cardiorenal syndrome now on HD 3. History of cocaine abuse with current positive tox screen. 4. Anemia/DARSHANA 5. Hypertension with hypertensive urgency. 6. Acute coronary syndrome/non-ST elevation myocardial infarction. 7. Acute on chronic LBP with radiculopathy ---> DDD/SS TREATMENT PLAN: -BiPAP 12/5 qHS and PRN - ENCOURAGE NOCTURNAL COMPLIANCE -Titrate FiO2 -HHN's -HD per renal with UF as able -Control BP -F/U cards and renal recs -F/U heme recs -F/U GI recs ---> plan for outpatient EGD/colo -DVT Px: hep SQ -Pain control/supportive care - minimize narcotics/sedatives -F/U pain management recs -Appreciate psych eval, has capacity, F/U recs -F/U neuro recs, D/C Ativan - assistance in placement - clear to go once encephalopathy resolved Subjective Allergies: Coded Allergies: No Known Allergies (Unverified , 07/08/18) Subjective Events reviewed, AFVSS, on RA More alert but with asterixis no sig SOB, no CP, no F/C Objective Last 24 Hour Vital Signs Date Time Temp Pulse Resp B/P (MAP) Pulse Ox O2 Delivery O2 Flow Rate FiO2 08/09/18 09:00 79 168/109 08/09/18 09:00 Room Air 08/09/18 08:59 81 18 99 Room Air 21 08/09/18 08:52 168/109 08/09/18 08:51 Room Air 21 08/09/18 08:51 97 Room Air 21 08/09/18 08:51 79 168/109 08/09/18 08:51 168/109 08/09/18 08:51 168/109 08/09/18 08:51 82 18 98 Room Air 21 08/09/18 08:00 93 08/09/18 08:00 97.5 79 18 168/109 (128) 98 08/09/18 05:26 78 12 98 Facial 21 08/09/18 04:00 97.9 91 19 158/110 (126) 99 08/09/18 04:00 89 08/09/18 03:52 86 18 98 Bi-pap 21 08/09/18 03:47 86 11 98 Facial 21 08/09/18 01:22 Room Air 21 08/09/18 01:22 Room Air 21 08/09/18 00:00 92 08/09/18 00:00 97.3 94 19 147/106 (120) 100 08/08/18 21:00 Room Air 08/08/18 20:36 107 160/86 08/08/18 20:00 99.0 107 19 160/86 (110) 97 08/08/18 20:00 104 08/08/18 19:26 106 20 99 Room Air 21 08/08/18 19:13 Room Air 21 08/08/18 19:13 103 20 98 Room Air 21 08/08/18 19:13 98 Room Air 21 08/08/18 17:59 157/86 08/08/18 16:00 97.7 94 20 157/86 (109) 90 08/08/18 16:00 94 Intake and Output 08/08/18 08/09/18 18:59 06:59 Output Total 1200 ml Balance -1200 ml Output Urine Total 1200 ml # Voids 4 General Appearance: WD/WN, no acute distress HEENT: normocephalic, atraumatic, anicteric, mucous membranes moist Respiratory/Chest: chest wall non-tender, lungs clear, normal breath sounds, no respiratory distress, no accessory muscle use Cardiovascular: normal peripheral pulses, normal rate, regular rhythm Abdomen: normal bowel sounds, soft, non tender, no organomegaly, non distended , no mass Extremities: no cyanosis, no clubbing, no edema Current Medications Medications (Trade) Dose Ordered Sig/Harish Route PRN Reason Start Time Stop Time Status Last Admin Dose Admin Acetaminophen (Tylenol) 650 mg Q4H PRN ORAL Mild Pain/Temp > 100.5 07/26/18 22:00 08/25/18 21:59 07/27/18 02:11 Acetaminophen/ Hydrocodone Bitart (Lorain 10/325) 1 tab Q4H PRN ORAL Severe Pain (Pain Scale 7-10) 08/03/18 19:45 08/10/18 19:44 08/07/18 21:06 Albuterol/ Ipratropium (Albuterol/ Ipratropium) 3 ml Q4H PRN HHN Shortness of Breath 08/06/18 21:37 08/11/18 21:36 08/09/18 03:52 Albuterol/ Ipratropium (Albuterol/ Ipratropium) 3 ml Q6HRT HHN 08/07/18 01:00 08/12/18 00:59 08/09/18 08:57 Chlorhexidine Gluconate (Laurel-Hex 2%) 1 applic DAILY@2000 TOPIC 07/27/18 20:00 08/25/18 19:59 08/08/18 20:37 Clonidine HCl (Catapres Tab) 0.1 mg Q4H PRN ORAL bp over 165 syst 07/26/18 22:00 08/25/18 21:59 08/09/18 08:51 Diltiazem HCl (Cardizem CD) 360 mg DAILY ORAL 08/01/18 09:00 08/25/18 08:59 08/09/18 08:51 Docusate Sodium (Colace) 100 mg TWICE A DAY ORAL 08/08/18 09:00 09/07/18 08:59 08/09/18 08:51 Epoetin [place] (Procrit (for ESRD on dialysis)) 8,000 units MON-WED-FRI SUBQ 07/29/18 21:00 08/28/18 20:59 08/05/18 20:59 Heparin Sodium (Porcine) (Heparin 5000 units/ml) 5,000 units EVERY 12 HOURS SUBQ 07/27/18 09:00 08/14/18 21:59 08/08/18 20:39 Iron Sucrose 100 mg/Sodium Chloride 60 ml @ 240 mls/hr BEDTIME IV 08/05/18 21:00 08/09/18 21:14 08/08/18 20:36 Isosorbide Mononitrate (Imdur) 60 mg DAILY ORAL 07/27/18 09:00 08/11/18 08:59 08/09/18 08:51 Lisinopril (Prinivil) 20 mg BID ORAL 07/27/18 09:00 08/19/18 08:59 08/09/18 08:52 Lorazepam (Ativan) 1 mg THREE TIMES A DAY ORAL 08/07/18 13:00 08/14/18 12:59 08/09/18 08:52 Magnesium Oxide (Mag-Ox 400mg) 400 mg THREE TIMES A DAY ORAL 08/02/18 13:00 09/01/18 12:59 08/09/18 09:00 Metoprolol Tartrate (Lopressor) 100 mg Q12HR ORAL 07/27/18 09:00 08/22/18 20:59 08/09/18 09:00 Mirtazapine (Remeron) 15 mg BEDTIME ORAL 08/07/18 21:00 09/06/18 20:59 08/08/18 20:36 Pantoprazole (Protonix) 40 mg DAILY ORAL 08/07/18 09:00 09/06/18 08:59 08/09/18 09:00 Polyethylene Glycol (Miralax) 17 gm DAILYPRN PRN ORAL Constipation 08/04/18 16:15 09/03/18 16:14 Edgard Webb MD Aug 09, 2018 13:10
--- NOTE | 2018-08-09 18:30 | Nephrology Progress Note ---
Assessment/Plan Problem List: (1) Renal failure (ARF), acute on chronic (2) Cocaine abuse (3) Acute exacerbation of CHF (congestive heart failure) (4) Hypertensive cardiomegaly with heart failure (5) Volume overload Assessment Acute on Chronic renal failure Anemia Elevated troponin Hypertensive renal and heart disease Cocaine abuse Cardiomyopathy Plan next HD 08/10 DC muscle relaxant and Neurontin and now Ativan readjust bp meds and pain meds discussed with RN per Neuro head CT results Negative for acute intracranial bleed or mass effect Atrophy and some calcification of the right optic globe. Correlate with clinical findings transfuse one unit 07/[address] Moura 2D Echo 55% ej fx BRIDGETT kidneys * Mild fullness of the bilateral renal collecting systems without radiographically appreciable stone and observed bilateral ureteral jets. Findings may be related to mild bladder distention. Consider repeat exam after bladder decompression. monitor renal parameters Avoid nephrotoxics renal diet flomax Subjective ROS Limited/Unobtainable: No Constitutional: Reports: malaise Objective Objective Last 24 Hour Vital Signs Date Time Temp Pulse Resp B/P (MAP) Pulse Ox O2 Delivery O2 Flow Rate FiO2 08/09/18 17:49 118/74 08/09/18 16:00 81 08/09/18 16:00 79 08/09/18 16:00 98.8 83 18 118/74 (89) 100 08/09/18 14:09 86 18 99 Room Air 21 08/09/18 14:01 77 18 99 Room Air 21 08/09/18 12:00 97.3 85 18 129/85 (100) 100 08/09/18 12:00 93 08/09/18 09:00 97.3 85 18 129/85 (100) 100 08/09/18 09:00 79 168/109 08/09/18 09:00 Room Air 08/09/18 08:59 81 18 99 Room Air 21 08/09/18 08:52 168/109 08/09/18 08:51 Room Air 21 08/09/18 08:51 97 Room Air 21 08/09/18 08:51 79 168/109 08/09/18 08:51 168/109 08/09/18 08:51 168/109 08/09/18 08:51 82 18 98 Room Air 21 08/09/18 08:00 93 08/09/18 08:00 97.5 79 18 168/109 (128) 98 08/09/18 05:26 78 12 98 Facial 21 08/09/18 04:00 97.9 91 19 158/110 (126) 99 08/09/18 04:00 89 08/09/18 03:52 86 18 98 Bi-pap 21 08/09/18 03:47 86 11 98 Facial 21 08/09/18 01:22 Room Air 21 08/09/18 01:22 Room Air 21 08/09/18 00:00 92 08/09/18 00:00 97.3 94 19 147/106 (120) 100 08/08/18 21:00 Room Air 08/08/18 20:36 107 160/86 08/08/18 20:00 99.0 107 19 160/86 (110) 97 08/08/18 20:00 104 08/08/18 19:26 106 20 99 Room Air 21 08/08/18 19:13 Room Air 21 08/08/18 19:13 103 20 98 Room Air 21 08/08/18 19:13 98 Room Air 21 Intake and Output 08/08/18 08/09/18 18:59 06:59 Output Total 1200 ml Balance -1200 ml Output Urine Total 1200 ml # Voids 4 Laboratory Tests 08/09/18 17:00: Stool Occult Blood [Pending] Height (Feet): 5 Height (Inches): 11.00 Weight (Pounds): 190 General Appearance: no apparent distress, other - less tremors Cardiovascular: normal rate Respiratory/Chest: lungs clear Abdomen: soft Objective no other change Richar Cm MD Aug 09, 2018 18:30
[2018-08-09] MEDS: Dyna-Hex 2% Top Sol 2oz TOPIC SCH (20:38)
[2018-08-09] MEDS: Iron Sucrose 100 MG in NS 55 ML IV SCH (20:38)
[2018-08-10] VITALS: BP 136/80
[2018-08-10] MEDS: Albuterol/Ipratropium 3ml neb HHN SCH ×2 (00:36→07:02)
[2018-08-10 04:00] VITALS: BP 145/90
[2018-08-10 07:19] LABS: HEMATOCRIT 32.3 % (42.0-52.0); MEAN CORPUSCULAR VOLUME 99 FL (80-99); PLATELET COUNT 252 K/UL (150-450); RED BLOOD COUNT 3.26 M/UL (4.70-6.10); RED CELL DISTRIBUTION WIDTH 15.5 % (11.6-14.8); WHITE BLOOD COUNT 7.5 K/UL (4.8-10.8)
[2018-08-10 07:22] LABS: ANION GAP 8 mmol/L (5-15); BLOOD UREA NITROGEN 57 mg/dL (7-18); CARBON DIOXIDE 26 MMOL/L (21-32); CHLORIDE 107 MMOL/L (98-107); CREATININE 6.7 MG/DL (0.55-1.30); POTASSIUM 5.8 MMOL/L (3.5-5.1); SODIUM 141 MMOL/L (136-145)
[2018-08-10 07:29] LABS: ALANINE AMINOTRANSFERASE 14 U/L (12-78); ALKALINE PHOSPHATASE 97 U/L (46-116); ASPARTATE AMINO TRANSFERASE 9 U/L (15-37); BILIRUBIN,DIRECT < 0.1 MG/DL (0.0-0.3); BILIRUBIN,TOTAL 0.2 MG/DL (0.2-1.0); GAMMA GLUTAMYL TRANSPEPTIDASE 51 U/L (5-85); PHOSPHORUS 3.4 MG/DL (2.5-4.9)
[2018-08-10 07:40] LABS: AMMONIA 21 umol/L (11-32)
[2018-08-10 08:00] VITALS: BP 172/102
[2018-08-10] MEDS: Magnesium Oxide 400mg tab ORAL SCH (08:24)
[2018-08-10] MEDS: Heparin 5000 units/ml inj SUBQ SCH (08:28)
[2018-08-10] MEDS: Lisinopril 20mg tab ORAL SCH (08:29)
[2018-08-10] MEDS: Imdur 30mg tab ORAL SCH (08:29)
[2018-08-10] MEDS: dilTIAZem HCl CD 180mg cap ORAL SCH (08:30)
[2018-08-10] MEDS: Docusate 100mg cap ORAL SCH (08:31)
--- NOTE | 2018-08-10 08:50 | General Progress Note ---
Assessment/Plan Assessment/Plan (1) Lumbar DDD (2) Lumbar Spondylosis (3) Cocaine Abuse Patient will be continued on Baclofen and [place] as needed. D/w Dr. Rosado and he concurred. Subjective Date patient seen: Aug 10, 2018 Time patient seen: 07:15 - am Allergies: Coded Allergies: No Known Allergies (Unverified , 07/08/18) Subjective REVIEW OF SYSTEMS: Denies rash, fever, chills, sweating, dizziness, drowsiness, blurred vision, or change in weight. No chest pain. No nausea, vomiting, diarrhea, or blood in the stool or urine. No bowel or bladder incontinence. He is complaining of low back pain. SUBJECTIVE: Patient is in bed reports that the pain is unchanged and tolerated on the [employer] [place] with no new complaints at this time. Objective Last 24 Hour Vital Signs Date Time Temp Pulse Resp B/P (MAP) Pulse Ox O2 Delivery O2 Flow Rate FiO2 08/10/18 08:30 92 172/102 08/10/18 08:30 92 172/102 08/10/18 08:29 172/102 08/10/18 08:29 172/102 08/10/18 07:13 91 19 99 Room Air 21 08/10/18 07:02 89 17 97 Room Air 21 08/10/18 07:02 Room Air 21 08/10/18 07:02 97 Room Air 21 08/10/18 04:00 98.0 90 19 145/90 (108) 96 08/10/18 04:00 89 08/10/18 00:44 94 16 97 Room Air 21 08/10/18 00:36 95 16 93 08/10/18 00:36 95 16 93 Room Air 21 08/10/18 00:00 97.3 95 18 136/80 (98) 96 08/10/18 00:00 93 08/09/18 23:14 21 08/09/18 23:11 91 17 94 Facial 21 08/09/18 21:00 Room Air 08/09/18 20:38 96 133/84 08/09/18 20:00 98.8 96 18 133/84 (100) 95 08/09/18 20:00 92 08/09/18 19:59 94 18 97 Room Air 21 08/09/18 19:49 93 Room Air 21 08/09/18 19:49 Room Air 21 08/09/18 19:49 95 20 93 Room Air 21 08/09/18 17:49 118/74 08/09/18 16:00 81 08/09/18 16:00 79 08/09/18 16:00 98.8 83 18 118/74 (89) 100 08/09/18 14:09 86 18 99 Room Air 21 08/09/18 14:01 77 18 99 Room Air 21 08/09/18 12:00 97.3 85 18 129/85 (100) 100 08/09/18 12:00 93 08/09/18 09:00 97.3 85 18 129/85 (100) 100 08/09/18 09:00 79 168/109 08/09/18 09:00 Room Air 08/09/18 08:59 81 18 99 Room Air 21 08/09/18 08:52 168/109 08/09/18 08:51 Room Air 21 08/09/18 08:51 97 Room Air 21 08/09/18 08:51 79 168/109 08/09/18 08:51 168/109 08/09/18 08:51 168/109 08/09/18 08:51 82 18 98 Room Air 21 Intake and Output 08/09/18 08/10/18 19:00 07:00 Intake Total 280 ml 280 ml Balance 280 ml 280 ml Intake Oral 280 ml 280 ml # Voids 4 # Bowel Movements 6 Laboratory Tests 08/09/18 17:00: Stool Occult Blood [Pending] 08/09/18 22:00: Stool Occult Blood [Pending] 08/10/18 06:20: White Blood Count 7.5, Red Blood Count 3.26L, Hemoglobin 10.0L, Hematocrit 32.3L , Mean Corpuscular Volume 99, Mean Corpuscular Hemoglobin 30.7, Mean Corpuscular Hemoglobin Concent 31.0L, Red Cell Distribution Width 15.5H, Platelet Count 252, Mean Platelet Volume 6.9, Neutrophils (%) (Auto) , Lymphocytes (%) (Auto) , Monocytes (%) (Auto) , Eosinophils (%) (Auto) , Basophils (%) (Auto) , Differential Total Cells Counted 100, Neutrophils % ( Manual) 43L, Lymphocytes % (Manual) 21, Monocytes % (Manual) 23H, Eosinophils % (Manual) 11H, Basophils % (Manual) 2, Band Neutrophils 0, Platelet Estimate Adequate, Platelet Morphology Normal, Sodium Level 141, Potassium Level 5.8H, Chloride Level 107, Carbon Dioxide Level 26, Anion Gap 8, Blood Urea Nitrogen 57H, Creatinine 6.7H, Estimat Glomerular Filtration Rate 10.4, Glucose Level 94 , Calcium Level 9.0, Phosphorus Level 3.4, Magnesium Level 2.1, Total Bilirubin 0.2, Direct Bilirubin < 0.1, Gamma Glutamyl Transpeptidase 51, Aspartate Amino Transf (AST/SGOT) 9L, Alanine Aminotransferase (ALT/SGPT) 14, Alkaline Phosphatase 97, Ammonia 21, Total Protein 7.1, Albumin 3.0L Height (Feet): 5 Height (Inches): 11.00 Weight (Pounds): 187 Objective GENERAL: Alert, awake, and oriented. LUNGS: Decreased breath sounds bilaterally. HEART: S1 and S2 regular. ABDOMEN: Soft, nontender. EXTREMITIES: No CCE NEURO: No changes. James Ramirez Aug 10, 2018 08:50
--- NOTE | 2018-08-10 10:08 | Neurology Progress Note ---
Interim History Interim History Interim History Mr. Neal feels much better. The mind feels significantly clearer. He is awake and alert. His cerebration is faster. The abnormal body jerks have stopped. He continues to be cognitively improved. He feels stronger. He denies any new neurologic symptoms. Review of Systems Neuro Review of Systems Benign. Objective Physical Exam Last Vital Signs Date Time Temp Pulse Resp B/P (MAP) Pulse Ox O2 Delivery O2 Flow Rate FiO2 08/10/18 09:00 Room Air 08/10/18 08:30 92 172/102 08/10/18 08:00 98.2 16 91 08/10/18 08:00 21 08/05/18 20:33 2.0 Laboratory Tests Test 08/09/18 17:00 08/09/18 22:00 08/10/18 06:20 Stool Occult Blood Pending Pending White Blood Count 7.5 K/UL (4.8-10.8) Red Blood Count 3.26 M/UL (4.70-6.10) L Hemoglobin 10.0 G/DL (14.2-18.0) L Hematocrit 32.3 % (42.0-52.0) L Mean Corpuscular Volume 99 FL (80-99) Mean Corpuscular Hemoglobin 30.7 PG (27.0-31.0) Mean Corpuscular Hemoglobin Concent 31.0 G/DL (32.0-36.0) L Red Cell Distribution Width 15.5 % (11.6-14.8) H Platelet Count 252 K/UL (150-450) Mean Platelet Volume 6.9 FL (6.5-10.1) Neutrophils (%) (Auto) % (45.0-75.0) Lymphocytes (%) (Auto) % (20.0-45.0) Monocytes (%) (Auto) % (1.0-10.0) Eosinophils (%) (Auto) % (0.0-3.0) Basophils (%) (Auto) % (0.0-2.0) Differential Total Cells Counted 100 Neutrophils % (Manual) 43 % (45-75) L Lymphocytes % (Manual) 21 % (20-45) Monocytes % (Manual) 23 % (1-10) H Eosinophils % (Manual) 11 % (0-3) H Basophils % (Manual) 2 % (0-2) Band Neutrophils 0 % (0-8) Platelet Estimate Adequate Platelet Morphology Normal Sodium Level 141 MMOL/L (136-145) Potassium Level 5.8 MMOL/L (3.5-5.1) H Chloride Level 107 MMOL/L (98-107) Carbon Dioxide Level 26 MMOL/L (21-32) Anion Gap 8 mmol/L (5-15) Blood Urea Nitrogen 57 mg/dL (7-18) H Creatinine 6.7 MG/DL (0.55-1.30) H Estimat Glomerular Filtration Rate 10.4 mL/min (>60) Glucose Level 94 MG/DL (74-106) Calcium Level 9.0 MG/DL (8.5-10.1) Phosphorus Level 3.4 MG/DL (2.5-4.9) Magnesium Level 2.1 MG/DL (1.8-2.4) Total Bilirubin 0.2 MG/DL (0.2-1.0) Direct Bilirubin < 0.1 MG/DL (0.0-0.3) Gamma Glutamyl Transpeptidase 51 U/L (5-85) Aspartate Amino Transf (AST/SGOT) 9 U/L (15-37) L Alanine Aminotransferase (ALT/SGPT) 14 U/L (12-78) Alkaline Phosphatase 97 U/L (46-116) Ammonia 21 umol/L (11-32) Total Protein 7.1 G/DL (6.4-8.2) Albumin 3.0 G/DL (3.4-5.0) L Neurologic Exam Objective PHYSICAL EXAMINATION: GENERAL: He is a well-developed and well-nourished black gentleman, lying in bed, in no acute distress. HEAD: Normocephalic and atraumatic. NECK: No neck rigidity was observed. EENT: Examination benign. SPINE: Cervical, thoracic, and lumbosacral spine revealed no tenderness and no paraspinal muscle spasm, but decreased range of motion. NEUROLOGICAL EXAMINATION: MENTAL STATUS EXAMINATION: He was awake and alert. His cerebration was close to normal. He was oriented to self, [facility] [place] and July 2018. He did not know the exact date. He was able to recall 3/3 words immediately, but could only remember 2/3 in 1 minute and 3 minutes. He was able to remember presidents Trump and Obama only. His mathematical skills were impaired. His visuospatial function was good. SPEECH: He had no dysarthria. LANGUAGE: He had a mild anomia. CRANIAL NERVE EXAMINATION: II: He was able to count fingers correctly in the left eye. He had right-sided phthisis bulbi. He was unable to cooperate for confrontation testing. III, IV & : External ocular movements were present, but incomplete in the left eye. In the right eye ocular movements were significantly diminished. The left pupil was 3 mm and reactive sluggishly to light. V: He had normal facial sensations and the temporales, masseters, and pterygoids functioned normally. VII: He had normal facial expressions and no facial asymmetry. VIII: He was able to hear well and had no nystagmus. IX: The palate moved symmetrically on phonation. X: He had no hoarseness of voice. XI: The sternocleidomastoids and trapezii functioned normally. XII: The tongue was in the midline without any fasciculations or atrophy. MOTOR SYSTEM: The tone was normal in all four extremities. Examination of muscle mass revealed no focal wasting. Examination of power revealed G 5/5 power in all mucle groups. SENSORY EXAMINATION: He had intact sensations to light touch. REFLEXES: 0 at the biceps, triceps, brachioradialis, knees, and ankles. The plantar responses were flexor bilaterally. COORDINATION: He performed well on [id number] testing. STANCE & GAIT: Were deferred. ABNORMAL MOVEMENTS: Asterixis: G 0/4 in UEs and G Trace/4 in LEs. Myoclonus: G 0/4. Impression/Recommendations Diagnostic Impression 1. Mr. Bg Neal is a 58-year-old, right-handed, black gentleman, who was hospitalized on 07/08/2018 for shortness of breath and was found to have renal failure, respiratory failure, congestive heart failure, and was intoxicated with cocaine. Since then, he has been treated for these problems. He has been exhibiting some abnormal generalized body jerks and other abnormal movements for which I was called in to evaluate him. He does also have a history of degenerative joint disease involving the lumbosacral spine, but denies any significant back pain at this time. 2. He feels much better. The mind feels significantly clearer. He is awake and alert. His cerebration is faster. The abnormal body jerks have stopped. He continues to be cognitively improved. He feels stronger. He denies any new neurologic symptoms. 3. On neurological examination, at this time, he is awake and alert. His cerebration is close to normal. He is oriented to self, [facility] [place] and July 2018. His recent and remote memory is better. His mathematical skills are impaired. His visuospatial function is normal. He has no dysarthria. He has a mild anomia. He has right-sided phthisis bulbi. He has G 5/5 power. He has intact sensations to light touch. His deep tendon reflexes are globally absent, but his plantar responses are flexor. He exhibits trace asterixis in the lower extremities but the the myoclonus has resolved. 4. His laboratory data on my initial evaluation revealed that he was anemic with a hemoglobin of 9.6 G. His latest chemistry panel revealed a potassium elevated at 5.5, a BUN elevated at 41, and a creatinine elevated at 6.4. His last toxicology screen performed on 07/08/2018, was positive for cocaine. 5. His repeat ABG done on 08/06/18 revealed a pH=7.36, pCO2=48, pO2=77. 6. The CT of the brain done on 08/06/18 was benign. 7. The EEG revealed a moderate metabolic encephalopathy. 8. The patient's history, neurological examination, and laboratory data are most compatible with moderately severe encephalopathy. The known reasons for encephalopathy include renal dysfunction, respiratory dysfunction, congestive heart failure, and the mind-altering drugs that have been given to him. 9. His encephalopathy has improved significantly today. Recommendations 1. Would correct all known metabolic abnormalities. 2. Refrain from use of all mind-altering drugs. 3. Observe. Eriberto Berg M.D., M.S.P.H. Eriberto Berg MD Aug 10, 2018 10:08
--- NOTE | 2018-08-10 11:06 | GI Progress Note ---
Assessment/Plan Problems: (1) Macrocytic anemia ICD Codes: D53.9 - Nutritional anemia, unspecified SNOMED: 40485725 (2) Iron deficiency ICD Codes: E61.1 - Iron deficiency SNOMED: 30727495 (3) Constipation ICD Codes: K59.00 - Constipation, unspecified SNOMED: 56792749 (4) Cocaine abuse ICD Codes: F14.10 - Cocaine abuse, uncomplicated SNOMED: 72840063 (5) Pancreatitis ICD Codes: K85.90 - Acute pancreatitis without necrosis or infection, unspecified SNOMED: 55878247 Status: stable Status Narrative Discussed with Dr. Shea. Assessment/Plan Pancreatitis now resolved Hepatitis panel negative history of hernia repair Stable H&H Okay for DC per GI standpoint OB stool r/o GI bleed not collected...re ordered monitor H&H, prn transfusions bowel regime, ppi venofer renal diet fu labs outpatient GI procedures The patient was seen and examined at bedside and all new and available data was reviewed in the patients chart. I agree with the above findings, impression and plan. (Patient seen earlier today. Signature stamp does not reflect patient encounter time.). - Nikolas Shea MD Subjective Subjective Denies any constipation had complaint of lower abdominal pain, believes there is problem with his hernia mesh Denies any pain at this time Objective Last 24 Hour Vital Signs Date Time Temp Pulse Resp B/P (MAP) Pulse Ox O2 Delivery O2 Flow Rate FiO2 08/10/18 09:00 Room Air 08/10/18 08:30 92 172/102 08/10/18 08:30 92 172/102 08/10/18 08:29 172/102 08/10/18 08:29 172/102 08/10/18 08:00 98.2 91 16 172/102 (125) 91 08/10/18 08:00 91 08/10/18 08:00 21 08/10/18 07:13 91 19 99 Room Air 21 08/10/18 07:02 89 17 97 Room Air 21 08/10/18 07:02 Room Air 21 08/10/18 07:02 97 Room Air 08/10/18 04:00 98.0 90 19 145/90 (108) 96 08/10/18 04:00 89 08/10/18 00:44 94 16 97 Room Air 08/10/18 00:36 95 16 93 08/10/18 00:36 95 16 93 Room Air 21 08/10/18 00:00 97.3 95 18 136/80 (98) 96 08/10/18 00:00 93 08/09/18 23:14 21 08/09/18 23:11 91 17 94 Facial 21 08/09/18 21:00 Room Air 08/09/18 20:38 96 133/84 08/09/18 20:00 98.8 96 18 133/84 (100) 95 08/09/18 20:00 92 08/09/18 19:59 94 18 97 Room Air 21 08/09/18 19:49 93 Room Air 21 08/09/18 19:49 Room Air 21 08/09/18 19:49 95 20 93 Room Air 21 08/09/18 17:49 118/74 08/09/18 16:00 81 08/09/18 16:00 79 08/09/18 16:00 98.8 83 18 118/74 (89) 100 08/09/18 14:09 86 18 99 Room Air 21 08/09/18 14:01 77 18 99 Room Air 21 08/09/18 12:00 97.3 85 18 129/85 (100) 100 08/09/18 12:00 93 Intake and Output 08/09/18 08/10/18 19:00 07:00 Intake Total 280 ml 280 ml Balance 280 ml 280 ml Intake Oral 280 ml 280 ml # Voids 4 # Bowel Movements 6 Laboratory Tests Test 08/09/18 17:00 08/09/18 22:00 08/10/18 06:20 Stool Occult Blood Pending Pending White Blood Count 7.5 K/UL (4.8-10.8) Red Blood Count 3.26 M/UL (4.70-6.10) L Hemoglobin 10.0 G/DL (14.2-18.0) L Hematocrit 32.3 % (42.0-52.0) L Mean Corpuscular Volume 99 FL (80-99) Mean Corpuscular Hemoglobin 30.7 PG (27.0-31.0) Mean Corpuscular Hemoglobin Concent 31.0 G/DL (32.0-36.0) L Red Cell Distribution Width 15.5 % (11.6-14.8) H Platelet Count 252 K/UL (150-450) Mean Platelet Volume 6.9 FL (6.5-10.1) Neutrophils (%) (Auto) % (45.0-75.0) Lymphocytes (%) (Auto) % (20.0-45.0) Monocytes (%) (Auto) % (1.0-10.0) Eosinophils (%) (Auto) % (0.0-3.0) Basophils (%) (Auto) % (0.0-2.0) Differential Total Cells Counted 100 Neutrophils % (Manual) 43 % (45-75) L Lymphocytes % (Manual) 21 % (20-45) Monocytes % (Manual) 23 % (1-10) H Eosinophils % (Manual) 11 % (0-3) H Basophils % (Manual) 2 % (0-2) Band Neutrophils 0 % (0-8) Platelet Estimate Adequate Platelet Morphology Normal Sodium Level 141 MMOL/L (136-145) Potassium Level 5.8 MMOL/L (3.5-5.1) H Chloride Level 107 MMOL/L (98-107) Carbon Dioxide Level 26 MMOL/L (21-32) Anion Gap 8 mmol/L (5-15) Blood Urea Nitrogen 57 mg/dL (7-18) H Creatinine 6.7 MG/DL (0.55-1.30) H Estimat Glomerular Filtration Rate 10.4 mL/min (>60) Glucose Level 94 MG/DL (74-106) Calcium Level 9.0 MG/DL (8.5-10.1) Phosphorus Level 3.4 MG/DL (2.5-4.9) Magnesium Level 2.1 MG/DL (1.8-2.4) Total Bilirubin 0.2 MG/DL (0.2-1.0) Direct Bilirubin < 0.1 MG/DL (0.0-0.3) Gamma Glutamyl Transpeptidase 51 U/L (5-85) Aspartate Amino Transf (AST/SGOT) 9 U/L (15-37) L Alanine Aminotransferase (ALT/SGPT) 14 U/L (12-78) Alkaline Phosphatase 97 U/L (46-116) Ammonia 21 umol/L (11-32) Total Protein 7.1 G/DL (6.4-8.2) Albumin 3.0 G/DL (3.4-5.0) L Height (Feet): 5 Height (Inches): 11.00 Weight (Pounds): 187 General Appearance: WD/WN, no apparent distress, alert Cardiovascular: normal rate Respiratory/Chest: normal breath sounds, no respiratory distress Abdominal Exam: normal bowel sounds, non tender, soft Extremities: normal range of motion, non-tender Daja Murdock NP Aug 10, 2018 11:06
[2018-08-10 12:00] VITALS: BP 166/100
[2018-08-10] MEDS ORDERED: Magnesium Oxide 400mg tab ORAL SCH (13:00)
[2018-08-10] MEDS ORDERED: Albuterol/Ipratropium 3ml neb HHN SCH (13:00)
--- NOTE | 2018-08-10 13:00 | Pulmonology Progress Note ---
Assessment/Plan Problems: (1) Acute exacerbation of CHF (congestive heart failure) (2) Hypertensive cardiomegaly with heart failure (3) ACS (acute coronary syndrome) (4) Cocaine abuse (5) ARF (acute renal failure) (6) DDD (degenerative disc disease) (7) Epistaxis (8) Hypercapnic respiratory failure Assessment/Plan ASSESSMENT: The patient is a 58-year-old male with history of cocaine and tobacco abuse, congestive heart failure, and renal impairment, presenting with decompensated heart failure and abnormal renal function with marked uremia. He has previously been told he needs dialysis. He is now being admitted for acute coronary syndrome and likely need for dialysis. PROBLEM LIST: 1. Congestive heart failure with acute decompensated heart failure. 2. Abnormal renal function, likely cardiorenal syndrome now on HD 3. History of cocaine abuse with current positive tox screen. 4. Anemia/DARSHANA 5. Hypertension with hypertensive urgency. 6. Acute coronary syndrome/non-ST elevation myocardial infarction. 7. Acute on chronic LBP with radiculopathy ---> DDD/SS TREATMENT PLAN: -BiPAP 12/5 qHS and PRN - DECLINES -Titrate FiO2 -HHN's -HD per renal with UF as able -Control BP -F/U cards and renal recs -F/U heme recs -F/U GI recs ---> plan for outpatient EGD/colo -DVT Px: hep SQ -Pain control/supportive care - minimize narcotics/sedatives -F/U pain management recs -Appreciate psych eval, has capacity, F/U recs -F/U neuro recs, monitor MS -D/C to SNF today Subjective Allergies: Coded Allergies: No Known Allergies (Unverified , 07/08/18) Subjective Events reviewed, AFVSS, on RA Awake and alert no asterixis no sig SOB, no CP, no F/C Objective Last 24 Hour Vital Signs Date Time Temp Pulse Resp B/P (MAP) Pulse Ox O2 Delivery O2 Flow Rate FiO2 08/10/18 12:00 21 08/10/18 12:00 98.2 93 16 166/100 (122) 98 08/10/18 09:00 Room Air 08/10/18 08:30 92 172/102 08/10/18 08:30 92 172/102 08/10/18 08:29 172/102 08/10/18 08:29 172/102 08/10/18 08:00 98.2 91 16 172/102 (125) 91 08/10/18 08:00 91 08/10/18 08:00 21 08/10/18 07:13 91 19 99 Room Air 21 08/10/18 07:02 89 17 97 Room Air 21 08/10/18 07:02 Room Air 21 08/10/18 07:02 97 Room Air 21 08/10/18 04:00 98.0 90 19 145/90 (108) 96 08/10/18 04:00 89 08/10/18 00:44 94 16 97 Room Air 21 08/10/18 00:36 95 16 93 08/10/18 00:36 95 16 93 Room Air 21 08/10/18 00:00 97.3 95 18 136/80 (98) 96 08/10/18 00:00 93 08/09/18 23:14 21 08/09/18 23:11 91 17 94 Facial 21 08/09/18 21:00 Room Air 08/09/18 20:38 96 133/84 08/09/18 20:00 98.8 96 18 133/84 (100) 95 08/09/18 20:00 92 08/09/18 19:59 94 18 97 Room Air 21 08/09/18 19:49 93 Room Air 21 08/09/18 19:49 Room Air 21 08/09/18 19:49 95 20 93 Room Air 21 08/09/18 17:49 118/74 08/09/18 16:00 81 08/09/18 16:00 79 08/09/18 16:00 98.8 83 18 118/74 (89) 100 08/09/18 14:09 86 18 99 Room Air 21 08/09/18 14:01 77 18 99 Room Air 21 Intake and Output 08/09/18 08/10/18 19:00 07:00 Intake Total 280 ml 280 ml Balance 280 ml 280 ml Intake Oral 280 ml 280 ml # Voids 4 # Bowel Movements 6 General Appearance: WD/WN, no acute distress HEENT: normocephalic, atraumatic, anicteric, mucous membranes moist Respiratory/Chest: chest wall non-tender, lungs clear, normal breath sounds, no respiratory distress, no accessory muscle use Cardiovascular: normal peripheral pulses, normal rate, regular rhythm Abdomen: normal bowel sounds, soft, non tender, no organomegaly, non distended , no mass Extremities: no cyanosis, no clubbing, no edema Laboratory Tests 08/09/18 17:00: Stool Occult Blood Negative 08/09/18 22:00: Stool Occult Blood Negative 08/10/18 06:20: White Blood Count 7.5, Red Blood Count 3.26L, Hemoglobin 10.0L, Hematocrit 32.3L , Mean Corpuscular Volume 99, Mean Corpuscular Hemoglobin 30.7, Mean Corpuscular Hemoglobin Concent 31.0L, Red Cell Distribution Width 15.5H, Platelet Count 252, Mean Platelet Volume 6.9, Neutrophils (%) (Auto) , Lymphocytes (%) (Auto) , Monocytes (%) (Auto) , Eosinophils (%) (Auto) , Basophils (%) (Auto) , Differential Total Cells Counted 100, Neutrophils % ( Manual) 43L, Lymphocytes % (Manual) 21, Monocytes % (Manual) 23H, Eosinophils % (Manual) 11H, Basophils % (Manual) 2, Band Neutrophils 0, Platelet Estimate Adequate, Platelet Morphology Normal, Sodium Level 141, Potassium Level 5.8H, Chloride Level 107, Carbon Dioxide Level 26, Anion Gap 8, Blood Urea Nitrogen 57H, Creatinine 6.7H, Estimat Glomerular Filtration Rate 10.4, Glucose Level 94 , Calcium Level 9.0, Phosphorus Level 3.4, Magnesium Level 2.1, Total Bilirubin 0.2, Direct Bilirubin < 0.1, Gamma Glutamyl Transpeptidase 51, Aspartate Amino Transf (AST/SGOT) 9L, Alanine Aminotransferase (ALT/SGPT) 14, Alkaline Phosphatase 97, Ammonia 21, Total Protein 7.1, Albumin 3.0L Current Medications Medications (Trade) Dose Ordered Sig/Harish Route PRN Reason Start Time Stop Time Status Last Admin Dose Admin Acetaminophen (Tylenol) 650 mg Q4H PRN ORAL Mild Pain/Temp > 100.5 07/26/18 22:00 08/25/18 21:59 07/27/18 02:11 Acetaminophen/ Hydrocodone Bitart ([place] 10/325) 1 tab Q4H PRN ORAL Severe Pain (Pain Scale 7-10) 08/03/18 19:45 08/10/18 19:44 08/07/18 21:06 Albuterol/ Ipratropium (Albuterol/ Ipratropium) 3 ml Q4H PRN HHN Shortness of Breath 08/06/18 21:37 08/11/18 21:36 08/09/18 03:52 Albuterol/ Ipratropium (Albuterol/ Ipratropium) 3 ml Q6HRT HHN 08/07/18 01:00 08/12/18 00:59 08/10/18 07:02 Chlorhexidine Gluconate (Laurel-Hex 2%) 1 applic DAILY@2000 TOPIC 07/27/18 20:00 08/25/18 19:59 08/09/18 20:38 Clonidine HCl (Catapres Tab) 0.1 mg Q4H PRN ORAL bp over 165 syst 07/26/18 22:00 08/25/18 21:59 08/09/18 08:51 Diltiazem HCl (Cardizem CD) 360 mg DAILY ORAL 08/01/18 09:00 08/25/18 08:59 08/10/18 08:30 Docusate Sodium (Colace) 100 mg TWICE A DAY ORAL 08/08/18 09:00 09/07/18 08:59 08/09/18 08:51 Epoetin [place] (Procrit (for ESRD on dialysis)) 8,000 units FRI-FRI-FRI SUBQ 07/29/18 21:00 08/28/18 20:59 08/05/18 20:59 Heparin Sodium (Porcine) (Heparin 5000 units/ml) 5,000 units EVERY 12 HOURS SUBQ 07/27/18 09:00 08/14/18 21:59 08/10/18 08:28 Isosorbide Mononitrate (Imdur) 60 mg DAILY ORAL 07/27/18 09:00 08/11/18 08:59 08/10/18 08:29 Lisinopril (Prinivil) 20 mg BID ORAL 07/27/18 09:00 08/19/18 08:59 08/10/18 08:29 Magnesium Oxide (Mag-Ox 400mg) 400 mg THREE TIMES A DAY ORAL 08/02/18 13:00 09/01/18 12:59 08/10/18 08:24 Metoprolol Tartrate (Lopressor) 100 mg Q12HR ORAL 07/27/18 09:00 08/22/18 20:59 08/10/18 08:30 Mirtazapine (Remeron) 15 mg BEDTIME ORAL 08/07/18 21:00 09/06/18 20:59 08/09/18 20:38 Pantoprazole (Protonix) 40 mg DAILY ORAL 08/07/18 09:00 09/06/18 08:59 08/10/18 08:24 Polyethylene Glycol (Miralax) 17 gm DAILYPRN PRN ORAL Constipation 08/04/18 16:15 09/03/18 16:14 Edgard Webb MD Aug 10, 2018 12:59
[2018-08-10] MEDS ORDERED: Miralax 17gm pkt ORAL PRN (13:30)
[2018-08-10] MEDS ORDERED: Albuterol/Ipratropium 3ml neb HHN PRN (13:30)
[2018-08-10] MEDS ORDERED: HYDROcodone/Acetamin 10/325 tab ORAL PRN (13:30)
--- NOTE | 2018-08-10 13:31 | Nephrology Progress Note ---
Assessment/Plan Problem List: (1) Renal failure (ARF), acute on chronic (2) Cocaine abuse (3) Acute exacerbation of CHF (congestive heart failure) (4) Hypertensive cardiomegaly with heart failure (5) Volume overload Assessment non compliant with diet Acute on Chronic renal failure Anemia Elevated troponin Hypertensive renal and heart disease Cocaine abuse Cardiomyopathy Plan next HD 08/10 DC muscle relaxant and Neurontin and now Ativan readjust bp meds and pain meds discussed with RN per Neuro head CT results Negative for acute intracranial bleed or mass effect Atrophy and some calcification of the right optic globe. Correlate with clinical findings transfuse one unit 07/[address] Moura 2D Echo 55% ej fx BRIDGETT kidneys * Mild fullness of the bilateral renal collecting systems without radiographically appreciable stone and observed bilateral ureteral jets. Findings may be related to mild bladder distention. Consider repeat exam after bladder decompression. monitor renal parameters Avoid nephrotoxics renal diet flomax Subjective ROS Limited/Unobtainable: No Constitutional: Reports: other - feels better Objective Objective Last 24 Hour Vital Signs Date Time Temp Pulse Resp B/P (MAP) Pulse Ox O2 Delivery O2 Flow Rate FiO2 08/10/18 13:15 82 18 96 Room Air 08/10/18 12:00 21 08/10/18 12:00 98.2 93 16 166/100 (122) 98 08/10/18 09:00 Room Air 08/10/18 08:30 92 172/102 08/10/18 08:30 92 172/102 08/10/18 08:29 172/102 08/10/18 08:29 172/102 08/10/18 08:00 98.2 91 16 172/102 (125) 91 08/10/18 08:00 91 08/10/18 08:00 21 08/10/18 07:13 91 19 99 Room Air 21 08/10/18 07:02 89 17 97 Room Air 21 08/10/18 07:02 Room Air 21 08/10/18 07:02 97 Room Air 08/10/18 04:00 98.0 90 19 145/90 (108) 96 08/10/18 04:00 89 08/10/18 00:44 94 16 97 Room Air 08/10/18 00:36 95 16 93 08/10/18 00:36 95 16 93 Room Air 08/10/18 00:00 97.3 95 18 136/80 (98) 96 08/10/18 00:00 93 08/09/18 23:14 21 08/09/18 23:11 91 17 94 Facial 21 08/09/18 21:00 Room Air 08/09/18 20:38 96 133/84 08/09/18 20:00 98.8 96 18 133/84 (100) 95 08/09/18 20:00 92 08/09/18 19:59 94 18 97 Room Air 21 08/09/18 19:49 93 Room Air 21 08/09/18 19:49 Room Air 21 08/09/18 19:49 95 20 93 Room Air 21 08/09/18 17:49 118/74 08/09/18 16:00 81 08/09/18 16:00 79 08/09/18 16:00 98.8 83 18 118/74 (89) 100 08/09/18 14:09 86 18 99 Room Air 21 08/09/18 14:01 77 18 99 Room Air 21 Intake and Output 08/09/18 08/10/18 19:00 07:00 Intake Total 280 ml 280 ml Balance 280 ml 280 ml Intake Oral 280 ml 280 ml # Voids 4 # Bowel Movements 6 Laboratory Tests 08/09/18 17:00: Stool Occult Blood Negative 08/09/18 22:00: Stool Occult Blood Negative 08/10/18 06:20: White Blood Count 7.5, Red Blood Count 3.26L, Hemoglobin 10.0L, Hematocrit 32.3L , Mean Corpuscular Volume 99, Mean Corpuscular Hemoglobin 30.7, Mean Corpuscular Hemoglobin Concent 31.0L, Red Cell Distribution Width 15.5H, Platelet Count 252, Mean Platelet Volume 6.9, Neutrophils (%) (Auto) , Lymphocytes (%) (Auto) , Monocytes (%) (Auto) , Eosinophils (%) (Auto) , Basophils (%) (Auto) , Differential Total Cells Counted 100, Neutrophils % ( Manual) 43L, Lymphocytes % (Manual) 21, Monocytes % (Manual) 23H, Eosinophils % (Manual) 11H, Basophils % (Manual) 2, Band Neutrophils 0, Platelet Estimate Adequate, Platelet Morphology Normal, Sodium Level 141, Potassium Level 5.8H, Chloride Level 107, Carbon Dioxide Level 26, Anion Gap 8, Blood Urea Nitrogen 57H, Creatinine 6.7H, Estimat Glomerular Filtration Rate 10.4, Glucose Level 94 , Calcium Level 9.0, Phosphorus Level 3.4, Magnesium Level 2.1, Total Bilirubin 0.2, Direct Bilirubin < 0.1, Gamma Glutamyl Transpeptidase 51, Aspartate Amino Transf (AST/SGOT) 9L, Alanine Aminotransferase (ALT/SGPT) 14, Alkaline Phosphatase 97, Ammonia 21, Total Protein 7.1, Albumin 3.0L Height (Feet): 5 Height (Inches): 11.00 Weight (Pounds): 187 General Appearance: no apparent distress Respiratory/Chest: decreased breath sounds Abdomen: soft Neurologic: other - tremors one Objective no other change Richar Cm MD Aug 10, 2018 13:31
--- NOTE | 2018-08-10 13:33 | Cardiac Electrophysiology PN ---
Assessment/Plan Assessment/Plan 1. Troponin leak in the setting of cocaine use and renal failure. Levels are flat and low. On aspirin, Metoprolol and Lipitor. EF 45%. 2. Hypertension. On Cardizem 360 daily, Metoprolol 100 bid, Imdur 60, Lisinopril 20 bid and HD 3. End-stage renal disease on HD by Dr. Cm 4. Substance use with cocaine. Avoid intermodal dispatcher beta-blockers. 5. Recent pneumonia. 6. Congestive heart failure with EF 45% 7. Anemia s/p PRBCs . DW RN Subjective Subjective No events, CP or SOB. Getting HD today. Objective Last 24 Hour Vital Signs Date Time Temp Pulse Resp B/P (MAP) Pulse Ox O2 Delivery O2 Flow Rate FiO2 08/10/18 13:28 83 18 99 Room Air 21 08/10/18 13:15 82 18 96 Room Air 21 08/10/18 12:00 21 08/10/18 12:00 98.2 93 16 166/100 (122) 98 08/10/18 09:00 Room Air 08/10/18 08:30 92 172/102 08/10/18 08:30 92 172/102 08/10/18 08:29 172/102 08/10/18 08:29 172/102 08/10/18 08:00 98.2 91 16 172/102 (125) 91 08/10/18 08:00 91 08/10/18 08:00 21 08/10/18 07:13 91 19 99 Room Air 21 08/10/18 07:02 89 17 97 Room Air 21 08/10/18 07:02 Room Air 21 08/10/18 07:02 97 Room Air 21 08/10/18 04:00 98.0 90 19 145/90 (108) 96 08/10/18 04:00 89 08/10/18 00:44 94 16 97 Room Air 08/10/18 00:36 95 16 93 08/10/18 00:36 95 16 93 Room Air 21 08/10/18 00:00 97.3 95 18 136/80 (98) 96 08/10/18 00:00 93 08/09/18 23:14 21 08/09/18 23:11 91 17 94 Facial 21 08/09/18 21:00 Room Air 08/09/18 20:38 96 133/84 08/09/18 20:00 98.8 96 18 133/84 (100) 95 08/09/18 20:00 92 08/09/18 19:59 94 18 97 Room Air 21 08/09/18 19:49 93 Room Air 21 08/09/18 19:49 Room Air 21 08/09/18 19:49 95 20 93 Room Air 21 08/09/18 17:49 118/74 08/09/18 16:00 81 08/09/18 16:00 79 08/09/18 16:00 98.8 83 18 118/74 (89) 100 08/09/18 14:09 86 18 99 Room Air 21 08/09/18 14:01 77 18 99 Room Air 21 Intake and Output 08/09/18 08/10/18 19:00 07:00 Intake Total 280 ml 280 ml Balance 280 ml 280 ml Intake Oral 280 ml 280 ml # Voids 4 # Bowel Movements 6 Laboratory Tests Test 08/09/18 17:00 08/09/18 22:00 08/10/18 06:20 Stool Occult Blood Negative (NEGATIVE) Negative (NEGATIVE) White Blood Count 7.5 K/UL (4.8-10.8) Red Blood Count 3.26 M/UL (4.70-6.10) L Hemoglobin 10.0 G/DL (14.2-18.0) L Hematocrit 32.3 % (42.0-52.0) L Mean Corpuscular Volume 99 FL (80-99) Mean Corpuscular Hemoglobin 30.7 PG (27.0-31.0) Mean Corpuscular Hemoglobin Concent 31.0 G/DL (32.0-36.0) L Red Cell Distribution Width 15.5 % (11.6-14.8) H Platelet Count 252 K/UL (150-450) Mean Platelet Volume 6.9 FL (6.5-10.1) Neutrophils (%) (Auto) % (45.0-75.0) Lymphocytes (%) (Auto) % (20.0-45.0) Monocytes (%) (Auto) % (1.0-10.0) Eosinophils (%) (Auto) % (0.0-3.0) Basophils (%) (Auto) % (0.0-2.0) Differential Total Cells Counted 100 Neutrophils % (Manual) 43 % (45-75) L Lymphocytes % (Manual) 21 % (20-45) Monocytes % (Manual) 23 % (1-10) H Eosinophils % (Manual) 11 % (0-3) H Basophils % (Manual) 2 % (0-2) Band Neutrophils 0 % (0-8) Platelet Estimate Adequate Platelet Morphology Normal Sodium Level 141 MMOL/L (136-145) Potassium Level 5.8 MMOL/L (3.5-5.1) H Chloride Level 107 MMOL/L (98-107) Carbon Dioxide Level 26 MMOL/L (21-32) Anion Gap 8 mmol/L (5-15) Blood Urea Nitrogen 57 mg/dL (7-18) H Creatinine 6.7 MG/DL (0.55-1.30) H Estimat Glomerular Filtration Rate 10.4 mL/min (>60) Glucose Level 94 MG/DL (74-106) Calcium Level 9.0 MG/DL (8.5-10.1) Phosphorus Level 3.4 MG/DL (2.5-4.9) Magnesium Level 2.1 MG/DL (1.8-2.4) Total Bilirubin 0.2 MG/DL (0.2-1.0) Direct Bilirubin < 0.1 MG/DL (0.0-0.3) Gamma Glutamyl Transpeptidase 51 U/L (5-85) Aspartate Amino Transf (AST/SGOT) 9 U/L (15-37) L Alanine Aminotransferase (ALT/SGPT) 14 U/L (12-78) Alkaline Phosphatase 97 U/L (46-116) Ammonia 21 umol/L (11-32) Total Protein 7.1 G/DL (6.4-8.2) Albumin 3.0 G/DL (3.4-5.0) L Objective HEAD AND NECK: No JVD. LUNGS: Clear CARDIOVASCULAR: Regular S1 and S2 with no gallop or murmur. ABDOMEN: Soft. EXTREMITIES: 1 plus pitting edema. German Gray MD Aug 10, 2018 13:33
[2018-08-10 16:00] VITALS: BP 135/81
--- NOTE | 2018-08-10 17:30 | General Progress Note ---
Assessment/Plan Assessment/Plan # Anemia of iron deficiency, multifactorial, curtis on ckd --> Anemia w/u has been reviewed, no eric noted --> No evidence of hemolysis is noted, peripheral smear is wnl --> Hgb goal >7. Transfuse prn. --> continue on epo sq, reviewed renal recs --> on iron iv, has been given 5 doses of venofer 08/05 --> s/p blood transfusion # Congestive heart failure with acute decompensated heart failure. --> per cards management --> In tele unit --> on diuresis # Curtis, likely cardiorenal syndrome. --> Nephrology is following appreciate recs --> HD 08/08/18 --> BRIDGETT kidneys with minimal fullness, seen by renal, echogenicity is wnl # History of cocaine abuse with current positive tox screen. --> recommend cessation # Hypertension with hypertensive urgency. --> On Norvasc 5 mg bid, Hydralazine,Imdur and Clonidine patch as needed --> Avoid beta-blockers for active cocaine us # Acute coronary syndrome/non-ST elevation myocardial infarction. --> per cards The date and time note entered does not reflect time and date patient was seen. GREATLY APPRECIATE CONSULTATION. Subjective Constitutional: Denies: no symptoms, chills, diaphoresis, fever, malaise, weakness, other HEENT: Denies: no symptoms, eye pain, blurred vision, tearing, double vision, ear pain, ear discharge, nose pain, nose congestion, throat pain, throat swelling, mouth pain, mouth swelling, other Cardiovascular: Denies: no symptoms, chest pain, edema, irregular heart rate, lightheadedness, palpitations, syncope, other Respiratory: Denies: no symptoms, cough, orthopnea, shortness of breath, SOB with excertion, SOB at rest, sputum, stridor, wheezing, other Gastrointestinal/Abdominal: Denies: no symptoms, abdomen distended, abdominal pain, black stools, tarry stools, blood in stool, constipated, diarrhea, difficulty swallowing, nausea, poor appetite, poor fluid intake, rectal bleeding , vomiting, other Genitourinary: Denies: no symptoms, burning, discharge, frequency, flank pain, hematuria, incontinence, pain, urgency, other Neurologic/Psychiatric: Denies: no symptoms, anxiety, depressed, emotional problems, headache, numbness, paresthesia, pre-existing deficit, seizure, tingling, tremors, weakness, other Endocrine: Denies: no symptoms, excessive sweating, flushing, intolerance to cold, intolerance to heat, increased hunger, increased thirst, increased urine, unexplained weight gain, unexplained weight loss, other Hematologic/Lymphatic: Denies: no symptoms, anemia, easy bleeding, easy bruising, other Allergies: Coded Allergies: No Known Allergies (Unverified , 07/08/18) Subjective 07/12: no events, cr trending, h/h stable, on epo 07/14: transfuse one unit 07/13, diruresed, refused mendez, seen by cards, bp better 07/15 : Pt is seen in the room, awake and alert, S/P blood transfusion, refusing HD 07/16 : Pt is awake and resting in bed. waiting on sister to make HD decision, no events 07/17 Pt is seen in the room,awake and alert, appears to be agreeable for placement of dialysis cath and dialysis . 07/18: Pt is seen in the room, No CP or SOB. Had HD today. 07/19: Pt is awake and resting in bed. Denies pain, SOB or fevers and chills. Has HD scheduled for 07/20/18, currently stable. 07/20: received hand held nebulizer, no other events, no f.c 07/21 : Pt seen by bedside, continues on breathing treatment, HD 07/22/18, no events 07/22: pending snf placement and outpatient hd 07/23: awake and resting in bed. no acute events, waiting placement and outpatient HD 07/24: no major events, waiting placement, seen by gi, recs reviewed, no complaints, on epo 07/25: CXR for patient c/o sob. O2 2L via NC administered. patient is A/A/Ox4. patient BLE edematous 07/26: Continues on oxygen of 3L/min via N/C. no acute respiratory distress is noted. Permacath to right chest for HD is intact 07/27: awake and comfortable, alert and oriented , next HD 07/28 07/28: Pt is seen by bedside, bipap is D/C, HD scheduled today, no events 07/29: Pt is awake and calm, Denies pain, SOB or fevers and chills, next HD 07/30. 07/30: hd pending, no major events, some sob 07/31: no complaints this am, r permacath in chest without issue, placement pending 08/04: pt is seen by bedside, awake, comfortable, waiting HD. 08/05: bp is much better controlled this am, no fevers or chills, refusing some labs; 08/06: seen by bedside, awake, comfortable, HD today, no events 08/07: Pt is awake, comfortable, eating breakfast, HD 08/08. , hgb 9.5,plt 177. 08/08: seen by bedside awake, no events. Getting HD today. Awaiting placement. 08/10: Pt is awake, comfortable, getting HD today, no events Objective Last 24 Hour Vital Signs Date Time Temp Pulse Resp B/P (MAP) Pulse Ox O2 Delivery O2 Flow Rate FiO2 08/10/18 16:00 98.2 86 16 135/81 (99) 98 08/10/18 16:00 86 08/10/18 16:00 21 08/10/18 13:28 83 18 99 Room Air 08/10/18 13:15 82 18 96 Room Air 08/10/18 12:00 21 08/10/18 12:00 98.2 93 16 166/100 (122) 98 08/10/18 12:00 89 08/10/18 09:00 Room Air 08/10/18 08:30 92 172/102 08/10/18 08:30 92 172/102 08/10/18 08:29 172/102 08/10/18 08:29 172/102 08/10/18 08:00 98.2 91 16 172/102 (125) 91 08/10/18 08:00 91 08/10/18 08:00 21 08/10/18 07:13 91 19 99 Room Air 08/10/18 07:02 89 17 97 Room Air 08/10/18 07:02 Room Air 08/10/18 07:02 97 Room Air 08/10/18 04:00 98.0 90 19 145/90 (108) 96 08/10/18 04:00 89 08/10/18 00:44 94 16 97 Room Air 08/10/18 00:36 95 16 93 08/10/18 00:36 95 16 93 Room Air 21 08/10/18 00:00 97.3 95 18 136/80 (98) 96 08/10/18 00:00 93 08/09/18 23:14 21 08/09/18 23:11 91 17 94 Facial 21 08/09/18 21:00 Room Air 08/09/18 20:38 96 133/84 08/09/18 20:00 98.8 96 18 133/84 (100) 95 08/09/18 20:00 92 08/09/18 19:59 94 18 97 Room Air 21 08/09/18 19:49 93 Room Air 21 08/09/18 19:49 Room Air 21 08/09/18 19:49 95 20 93 Room Air 21 08/09/18 17:49 118/74 Intake and Output 08/09/18 08/10/18 18:59 06:59 Intake Total 280 ml 280 ml Balance 280 ml 280 ml Intake Oral 280 ml 280 ml # Voids 4 # Bowel Movements 6 Laboratory Tests 08/09/18 22:00: Stool Occult Blood Negative 08/10/18 06:20: White Blood Count 7.5, Red Blood Count 3.26L, Hemoglobin 10.0L, Hematocrit 32.3L , Mean Corpuscular Volume 99, Mean Corpuscular Hemoglobin 30.7, Mean Corpuscular Hemoglobin Concent 31.0L, Red Cell Distribution Width 15.5H, Platelet Count 252, Mean Platelet Volume 6.9, Neutrophils (%) (Auto) , Lymphocytes (%) (Auto) , Monocytes (%) (Auto) , Eosinophils (%) (Auto) , Basophils (%) (Auto) , Differential Total Cells Counted 100, Neutrophils % ( Manual) 43L, Lymphocytes % (Manual) 21, Monocytes % (Manual) 23H, Eosinophils % (Manual) 11H, Basophils % (Manual) 2, Band Neutrophils 0, Platelet Estimate Adequate, Platelet Morphology Normal, Sodium Level 141, Potassium Level 5.8H, Chloride Level 107, Carbon Dioxide Level 26, Anion Gap 8, Blood Urea Nitrogen 57H, Creatinine 6.7H, Estimat Glomerular Filtration Rate 10.4, Glucose Level 94 , Calcium Level 9.0, Phosphorus Level 3.4, Magnesium Level 2.1, Total Bilirubin 0.2, Direct Bilirubin < 0.1, Gamma Glutamyl Transpeptidase 51, Aspartate Amino Transf (AST/SGOT) 9L, Alanine Aminotransferase (ALT/SGPT) 14, Alkaline Phosphatase 97, Ammonia 21, Total Protein 7.1, Albumin 3.0L Height (Feet): 5 Height (Inches): 11.00 Weight (Pounds): 187 Objective Physical Exam General Appearance: A+O x2 NAD HEENT: normocephalic, atraumatic, R permacath Neck: non-tender, normal alignment Respiratory/Chest: chest wall non-tender, lungs clear Cardiovascular/Chest: normal peripheral pulses, normal rate Abdomen: normal bowel sounds, non tender Extremities: normal range of motion Shane Mary MD Aug 10, 2018 17:30
[2018-08-10] MEDS ORDERED: Lisinopril 20mg tab ORAL SCH (18:00)
[2018-08-10] MEDS ORDERED: Docusate 100mg cap ORAL SCH (18:00)
[2018-08-10] MEDS ORDERED: Dyna-Hex 2% Top Sol 2oz TOPIC SCH (20:00)
[2018-08-10] MEDS ORDERED: Epogen (for ESRD on dialysis) SUBQ SCH (21:00)
[2018-08-11] MEDS ORDERED: dilTIAZem HCl CD 180mg cap ORAL SCH (09:00)
[2018-08-11] MEDS ORDERED: Imdur 30mg tab ORAL SCH (09:00)
--- NOTE | 2018-08-12 08:47 | Discharge Summary ---
Discharge Summary Discharge Summary _ DATE OF ADMISSION: 07/08/2018 DATE OF DISCHARGE: 08/10/2018 DISCHARGE BY:Dr. Webb REASON FOR ADMISSION: 58 years old male history of cocaine and tobacco abuse, congestive heart failure , chronic kidney disease, presented with to [facility] [place] emergency department for shortness of breath and epistaxis in the setting of recent cocaine use. Upon arrival to the emergency department he was afebrile , but showed episode of hypertensive urgency with BP 177/95 and sinus tachycardia with heart rate 107. Pulse oximetry was stable on room air. Patient had elevated cardiac biomarker CK troponin and s Urine toxicology screen was positive for cocaine. Chest x-ray was consistent with congestive heart failure. Chemistry revealed evidence of acute renal failure BUN 91, creatinine 9.3. Potassium 3.0. Lipase 585. Pro BNP over 35,000. CK 1287. Troponin 0.197. No leukocytosis hemoglobin 9.2, hematocrit 28.1. Patient was started on anticoagulation with Lovenox in the emergency department. Nitroglycerine and Aspirin were given as well . Patient was previously told that he need dialysis. Patient was admitted for further management with decompensated heart failure , anemia a,bnormal renal function with marked uremia ,elevated troponin and elevated lipase. CONSULTANTS: winder operator Dr. Barragan neurologist Dr. Berg GI specialist Dr. Shea hanger Dr. Cm quality associate/oncologist Dr. Mary psychiatrist pain specialist Dr. Rosado [place] [employer] [facility]RSE: Patient admitted to monitored floor. Patient initially started on anticoagulation with IV heparin. Cardiology clsoely followed. Blood pressure was stabilized. Antiplatelet therapy with aspirin provided. Patient started on diuresis with close monitoring of volumes and cardiorenal parameters. Electrolytes were closely monitored and replaced as needed. Data Coder Operator clsoely followed. Serial troponin were closely monitored , last 4 troponin negative. Levels were flat and low. Per winder operator patient had troponin leak in the setting of cocaine use and renal failure. Initial heparin drip was stopped. Patient was continued on antiplatelet therapy. Beta-pablo/metoprolol and statin were continued. Antihypertensive medication regimen was optimized with multiply antihypertensive medications to keep blood pressure under control. Blood pressure stabilized. Echocardiogram revealed ejection fraction of 55%, mitral inflow indicated restrictive pattern, implying severely elevated left atrial pressure ,grade 3 , moderate mitral regurgitation. Right ventricular systolic pressure of 23 Data Coder Operator closely follow. Renal ultrasound revealed mild bladder distention. Renal echogenicity appeared to be within normal limits bilaterally. Patient refused Simpson catheter. IV fluids initially attempted , no significant impact on renal function, likely cardiorenal syndrome. IV fluids stopped. Renal parameters and electrolytes were closely monitored. Electrolytes corrected as needed. Nephrotoxins were avoided. Patient started on Flomax. Blood pressure was closely monitor and optimized by both winder operator and hanger. Attempted diuresis with Lasix and Zaroxolyn. Blood pressure was further optimized. Despite all above measures, patient required hemodialysis , which was extensively discussed with patient . Patient initially declined hemodialysis, but then agreed to placement of hemodialysis catheter. On 07/17 tunneled hemodialysis catheter was placed by radiology via right jugular vein. Patient started on hemodialysis on 07/18 as per hanger recommendations with close monitoring of volumes and cardiorenal parameters. Patient was educated on renal diet and compliance . Follow up ABG revealed evidence fo hypercapnia. Patient was started on BiPAP at nighttime and as needed. Patient however, declined BiPAP. Supplemetnal oxygen provided to keep pulse oximetry above 90%. Pulmonary toilet provided as needed. Prior to discharge pulse oximetry was stable on room air. Venous duplex bilateral lower extremity revealed no evidence of acute DVT. DVT prophylaxis provided. Patient was counseled on smoking cessation. Patient declined nicotine patch. Patient initially with evidence of pancreatitis . Lipase trended down to normal. Hepatitis panel was negative. HIV test was nonreactive. Lipid panel was stable. Pain management was addressed. Bowel regimen instituted. Hemoglobin and hematocrit were closely monitored with goal to keep hemoglobin above 7. Admission patient required 2 transfusions of 2 units of packed red blood cells. Prior to discharge hemoglobin 10 , hematocrit 32.3. Anemia workup was reviewed by quality associate and GI specialist. Patient received Venofer IV. Stool for occult blood x2 was negative. GI recommended outpatient procedure. Anemia was likely due to renal failure as per quality associate.. Epogen was continued. Pain management was addressed as per pain specialist recommendation. MRI of the lumbar spine revealed degenerative changes, including moderate spinal stenosis at L4-5 and multilevel neural foraminal stenosis. No acute abnormality. Neurologist was consulted due to abnormal body jerks and other abnormal body movements. CT of the head revealed no acute intracranial bleeding or mass-effect. EEG findings were consistent with encephalopathy of moderate to severe degree , probably metabolic component. Ammonia level was stable. Repeated ABG on room air was stable. Per neurologist , patient history, physical examination, laboratory data and imaging studies were most compatible with moderate to severe encephalopathy, probably due to renal dysfunction, respiratory dysfunction, congestive heart failure and mind altering medications , given to him. All mind altering drugs were discontinued. Metabolic abnormalities were corrected. Encephalopathy significantly improved. Psychiatrist followed . Psychiatrist diagnosed patient with major depressive disorder , cluster B personality disorder and cocaine abuse. Patient was reluctant to take psychiatric medications. Patient was provided with reality orientation and supportive therapy. Patient was educated on compliance with medication regimen. Patient was counseled on abstinence from illicit street drugs. Patient clinically stabilized and was ready for transfer to residential facility for continuation of care FINAL DIAGNOSES: Congestive heart failure with acute decompensated heart failure Possible acute coronary syndrome Probably troponin leak in the setting of cocaine use and renal failure Hypertension with hypertensive urgency Hypertensive renal and heart disease Hypercapnic respiratory failure Acute encephalopathy of metabolic origin Acute on chronic renal failure, started on hemodialysis Likely cardiorenal syndrome Pancreatitis-resolved Anemia Cocaine abuse Acute on chronic low back pain Lumbar spondylosis Lumbar DDD Major depressive disorder Cluster B personality disorder DISCHARGE MEDICATIONS: List of medication was sent to accepting facility. DISCHARGE INSTRUCTIONS: Patient was discharged to the residential facility/[facility]. Follow up with medical doctor at the facility. I have been assigned to dictate discharge summary for this account. I was not involved in the patient's management. Becca Velazquez NP Aug 12, 2018 08:47
== END 2018-08-10 16:19 | DRG 194 ==
LOC: EMR 20:26 → EDBEDREQ 21:27 → 2E 21:30 → EDBEDREQ 21:54 → 2E 23:01 → 4E 07-17 20:43 → 2W 07-25 15:40 → 4E 07-26 21:45 → 2E 08-07 03:49
PROC: 05HM33Z Insertion of Infusion Device into Right Internal Jugular Vein, Percutaneous Approach (ICD-10-PCS; principal; 2018-07-17)
PROC: 0JH63XZ Insertion of Tunneled Vascular Access Device into Chest Subcutaneous Tissue and Fascia, Percutaneous Approach (ICD-10-PCS; principal; 2018-07-17)
PROC: B513ZZA Fluoroscopy of Right Jugular Veins, Guidance (ICD-10-PCS; 2018-07-18)
PROC: 5A1D70Z Performance of Urinary Filtration, Intermittent, Less than 6 Hours Per Day (ICD-10-PCS; 2018-07-18)
DX: I13.2 Hypertensive heart and chronic kidney disease with heart failure and with stage 5 chronic kidney disease, or end stage renal disease (principal); J96.92 Respiratory failure, unspecified with hypercapnia; G93.41 Metabolic encephalopathy; N17.9 Acute kidney failure, unspecified; K85.90 Acute pancreatitis without necrosis or infection, unspecified; I24.9 Acute ischemic heart disease, unspecified; N18.6 End stage renal disease; I16.0 Hypertensive urgency; I50.9 Heart failure, unspecified; F14.10 Cocaine abuse, uncomplicated; H54.40 Blindness, one eye, unspecified eye; I42.9 Cardiomyopathy, unspecified; D63.1 Anemia in chronic kidney disease; F32.9 Major depressive disorder, single episode, unspecified; F60.89 Other specific personality disorders; M51.36 Other intervertebral disc degeneration, lumbar region; M47.9 Spondylosis, unspecified; K59.00 Constipation, unspecified
CPT/HCPCS: 36415; 36600; 70450; 71045; 72148; 76000; 76770; 80048; 80053; 80061; 80076; 80307; 81001; 82140; 82270; 82550; 82553; 82607; 82728; 82746; 82803; 82977; 83036; 83540; 83550; 83690; 83735; 83880; 84100; 84443; 84484; 84550; 85007; 85025; 85610; 85651; 85730; 86140; 86703; 86706; 86707; 86803; 86850; 86900; 86901; 86920; 87081; 89050; 93005; 93306; 93970; 93971; 94640; 94660; 94664; 94760; 95819; 96374; 99285; J7620; J8499

== ENCOUNTER 2019-01-09 00:15 | Inpatient (IN) | payer OTHER ==
[2019-01-09] VITALS (9 sets, daily range): BP systolic 121–158; BP diastolic 69–97
[~2019-01-09] VITALS: Ht 175.3 cm; Wt 85.8 kg
[~2019-01-09 00:15] MED LIST: FUROSEMIDE40 MG/5 ML ORAL; HYDRALAZINE HCL50 MG ORAL; UNOBMED
--- NOTE | 2019-01-09 00:30 | NUR ---
ED Nurse Note: While doing triage for pt, he is very hostile towards nurse telling staff to hurry up because he is tired, pt also states he has been drinking all day and missed dialysis because he wanted to drink, pt speaking to nurse with foul language and expressing to nurse "ill bust your robertson", pt is rude and hostile.
--- NOTE | 2019-01-09 00:35 | NUR ---
ED Nurse Note: pt walked in c/c missed dialysis, pt reports he drank today and he goes dialysis on [facility] but missed on friday. no complaints at this time. noted permacath on right subclavian, old av shunt site on right upper arm and left upper arm. pt AA&ox4, gcs=15, skin warm and dry, resp even and unlabored on RA, -n/v/d, ambulates w/ steady gait with walker, vss, NSr on protection mgr, will cont monitor.
--- NOTE | 2019-01-09 00:45 | Emergency Room Report ---
History of Present Illness General Chief Complaint: General Complaint Source: Patient Present Illness HPI Patient presents with missed dialysis today. He has been drinking alcohol also. Feeling depressed. He is demanding immediate dialysis. He denies suicidal or homicidal ideation. He denied pain to the triage nurse. He reports chest pain 12/21. No fevers, chills, chest pain, palpitations, nausea, vomiting, diarrhea, dysuria , abdominal pain, shortness of breath, depression, visual changes, headache. Recently had a surgical fistula placed in his left upper arm. Dialysis is not performed yet at that site. Is a vas cath there is right chest. He was admitted June last year with these discharge diagnoses: Congestive heart failure with acute decompensated heart failure Possible acute coronary syndrome Probably troponin leak in the setting of cocaine use and renal failure Hypertension with hypertensive urgency Hypertensive renal and heart disease Hypercapnic respiratory failure Acute encephalopathy of metabolic origin Acute on chronic renal failure, started on hemodialysis Likely cardiorenal syndrome Pancreatitis-resolved Anemia Cocaine abuse Acute on chronic low back pain Lumbar spondylosis Lumbar DDD Major depressive disorder Cluster B personality disorder Allergies: Coded Allergies: No Known Allergies (Unverified , 01/09/19) Patient History Past Medical History: see triage record, old chart reviewed Social History: Reports: alcohol use, drug use Social History Narrative From home Reviewed Nursing Documentation: PMH: Agreed; PSxH: Agreed Nursing Documentation-PMH Hx Cardiac Problems: Yes - CHF Hx Hypertension: Yes Hx COPD: Yes Hx Diabetes: No - RENAL FAILURE Review of Systems All Other Systems: negative except mentioned in HPI Physical Exam Vital Signs Date Time Temp Pulse Resp B/P (MAP) Pulse Ox O2 Delivery O2 Flow Rate FiO2 01/09/19 00:26 98.1 72 20 96 Room Air 158/97 Sp02 EP Interpretation: reviewed, normal General Appearance: well appearing, no apparent distress - Demanding immediate dialysis, GCS 15 Head: normocephalic, atraumatic Eyes: bilateral eye PERRL, bilateral eye EOMI, bilateral eye Scleral Injection ENT: moist mucus membranes Neck: full range of motion, supple Respiratory: lungs clear, normal breath sounds, other - Fast cath present right chest Cardiovascular #1: regular rate, rhythm Cardiovascular #2: 2+ radial (L) - Surgical fistula present with thrill Gastrointestinal: normal inspection, normal bowel sounds, non tender, no mass, non-distended Musculoskeletal: back normal, gait/station normal, normal range of motion Neurologic: alert, oriented x3, grossly normal Psychiatric: no suicidal/homicidal ideation, depressed affect Skin: no rash, palpation normal Medical Decision Making Diagnostic Impression: Primary Impression: ESRD (end stage renal disease) on dialysis Additional Impressions: Patient's noncompliance with other medical treatment and regimen Acute alcohol intoxication Qualified Codes: F10.929 - Alcohol use, unspecified with intoxication, unspecified Cocaine abuse Metabolic acidemia Uremia ER Course Patient presents with noncompliance with dialysis and alcohol ingestion. Differential includes electrolyte abnormality, alcohol intoxication, hyperkalemia, depression amongst others. Patient will be evaluated with EKG, chest x-ray and labs. As the patient is a dialysis patient he cannot receive IV hydration. The patient was given famotidine. The patient was placed on a cardiac nurse specialist. EKG without injury. Chest x-ray Vas-Cath without extreme pulmonary congestion. Labs significant for acute renal failure with acidosis, uremia. Tox screen positive for cocaine and blood alcohol of 78. Patient is resting without distress and reports decreased pain. Based on laboratory results the patient needs dialysis. Patient admitted to the hospital telemetry. Laboratory Tests Test 01/09/19 00:50 01/09/19 03:21 White Blood Count 7.3 K/UL (4.8-10.8) Red Blood Count 3.37 M/UL (4.70-6.10) L Hemoglobin 10.6 G/DL (14.2-18.0) L Hematocrit 32.7 % (42.0-52.0) L Mean Corpuscular Volume 97 FL (80-99) Mean Corpuscular Hemoglobin 31.4 PG (27.0-31.0) H Mean Corpuscular Hemoglobin Concent 32.3 G/DL (32.0-36.0) Red Cell Distribution Width 12.6 % (11.6-14.8) Platelet Count 285 K/UL (150-450) Mean Platelet Volume 6.9 FL (6.5-10.1) Neutrophils (%) (Auto) 54.0 % (45.0-75.0) Lymphocytes (%) (Auto) 32.1 % (20.0-45.0) Monocytes (%) (Auto) 11.7 % (1.0-10.0) H Eosinophils (%) (Auto) 0.4 % (0.0-3.0) Basophils (%) (Auto) 1.9 % (0.0-2.0) Prothrombin Time 10.2 SEC (9.30-11.50) Prothrombin Time INR 1.0 (0.9-1.1) PTT 28 SEC (23-33) Sodium Level 130 MMOL/L (136-145) L Potassium Level 4.5 MMOL/L (3.5-5.1) Chloride Level 90 MMOL/L (98-107) L Carbon Dioxide Level 20 MMOL/L (21-32) L Anion Gap 20 mmol/L (5-15) H Blood Urea Nitrogen 75 mg/dL (7-18) H Creatinine 10.9 MG/DL (0.55-1.30) H Estimate Glomerular Filtration Rate 5.9 mL/min (>60) Glucose Level 90 MG/DL (74-106) Calcium Level 6.4 MG/DL (8.5-10.1) L Total Bilirubin 0.2 MG/DL (0.2-1.0) Aspartate Amino Transferase (AST) 11 U/L (15-37) L Alanine Aminotransferase (ALT) 8 U/L (12-78) L Alkaline Phosphatase 94 U/L (46-116) Total Creatine Kinase 213 U/L (26-308) Troponin I 0.003 ng/mL (0.000-0.056) Pro-B-Type Natriuretic Peptide 2947 pg/mL (0-125) H Total Protein 7.7 G/DL (6.4-8.2) Albumin 4.0 G/DL (3.4-5.0) Globulin 3.7 g/dL Albumin/Globulin Ratio 1.1 (1.0-2.7) Lipase 111 U/L (73-393) Serum Alcohol 78 mg/dL Urine Color Pale yellow Urine Appearance Clear Urine pH 6.5 (4.5-8.0) Urine Specific [place] 1.010 (1.005-1.035) Urine Protein 3+ (NEGATIVE) H Urine Glucose (UA) Negative (NEGATIVE) Urine Ketones Negative (NEGATIVE) Urine Blood 2+ (NEGATIVE) H Urine Nitrite Negative (NEGATIVE) Urine Bilirubin Negative (NEGATIVE) Urine Urobilinogen Normal MG/DL (0.0-1.0) Urine Leukocyte Esterase Negative (NEGATIVE) Urine RBC Pending Urine WBC Pending Urine Squamous Epithelial Cells Pending Urine Bacteria Pending Urine Opiates Screen Negative (NEGATIVE) Urine Barbiturates Screen Negative (NEGATIVE) Phencyclidine (PCP) Screen Negative (NEGATIVE) Urine Amphetamines Screen Negative (NEGATIVE) Urine Benzodiazepines Screen Negative (NEGATIVE) Urine Cocaine Screen Positive (NEGATIVE) H Urine Marijuana (THC) Screen Negative (NEGATIVE) EKG Diagnostic Results Rate: normal Rhythm: NSR ST Segments: no acute changes - Prolonged QT, QTC 480 ms Rhythm Strip Diag. Results EP Interpretation: yes Rhythm: NSR, no PVC's, no ectopy Chest X-Ray Diagnostic Results Chest X-Ray Diagnostic Results : Chest X-Ray Ordered: Yes # of Views/Limited/Complete: 1 View Indication: Other EP Interpretation: Yes Interpretation: no consolidation, no effusion, no pneumothorax, other Impression: Other Electronically Signed by: Electronically signed by Pablito Manzo MD Last Vital Signs Date Time Temp Pulse Resp B/P (MAP) Pulse Ox O2 Delivery O2 Flow Rate FiO2 01/09/19 02:27 98.1 75 16 132/72 100 Room Air Status: improved Disposition: PLACE IN OBSERVATION Condition: Serious Scripts Thiamine Mononitrate (VITAMIN B-1) 100 Mg Tablet 100 MG ORAL DAILY for 30 Days, TAB Prov: Qian Abdi MD 01/11/19 Sevelamer Carbonate (Renvela) 800 Mg Tablet 1600 MG ORAL THREE TIMES A DAY for 30 Days, TAB Prov: Qian Abdi MD 01/11/19 Diphenhydramine Hcl* (BENADRYL*) 25 Mg Capsule 25 MG ORAL Q6H PRN for 30 Days, CAP Prov: Qian Abdi MD 01/11/19 Pablito Manzo MD Jan 09, 2019 00:45
[2019-01-09 01:05] LABS: BASOPHILS % (AUTO) 1.9 % (0.0-2.0); EOSINOPHILS % (AUTO) 0.4 % (0.0-3.0); HEMATOCRIT 32.7 % (42.0-52.0); HEMOGLOBIN 10.6 G/DL (14.2-18.0); LYMPHOCYTES % (AUTO) 32.1 % (20.0-45.0); MEAN CORPUSCULAR VOLUME 97 FL (80-99); MONOCYTES % (AUTO) 11.7 % (1.0-10.0); PLATELET COUNT 285 K/UL (150-450); RED BLOOD COUNT 3.37 M/UL (4.70-6.10); RED CELL DISTRIBUTION WIDTH 12.6 % (11.6-14.8); WHITE BLOOD COUNT 7.3 K/UL (4.8-10.8)
[2019-01-09 01:24] LABS: ANION GAP 20 mmol/L (5-15); BLOOD UREA NITROGEN 75 mg/dL (7-18); CALCIUM 6.4 MG/DL (8.5-10.1); CARBON DIOXIDE 20 MMOL/L (21-32); CHLORIDE 90 MMOL/L (98-107); CREATININE 10.9 MG/DL (0.55-1.30); POTASSIUM 4.5 MMOL/L (3.5-5.1); SODIUM 130 MMOL/L (136-145)
[2019-01-09 01:35] LABS: ALANINE AMINOTRANSFERASE 8 U/L (12-78); ALBUMIN/GLOBULIN RATIO 1.1 (1.0-2.7); ALKALINE PHOSPHATASE 94 U/L (46-116); ASPARTATE AMINO TRANSFERASE 11 U/L (15-37); BILIRUBIN,TOTAL 0.2 MG/DL (0.2-1.0); CREATINE KINASE 213 U/L (26-308)
--- NOTE | 2019-01-09 01:35 | NUR ---
ED Nurse Note: pt sleeping at this time, no sx distress, resp even and unlabored on RA, pillow and extra warm blanket provided for comfort, vss, Nsr on cardiac care nurse, will cont monitor, safety precautions in place.
--- NOTE | 2019-01-09 01:50 | Diagnostic Imaging Report ---
EXAM: XR Chest, 1 View CLINICAL HISTORY: CP TECHNIQUE: Frontal view of the chest. COMPARISON: 07/25/18 FINDINGS: Lungs: Unremarkable. No consolidation. Pleural space: Unremarkable. No pneumothorax. Heart: Unremarkable. No cardiomegaly. Mediastinum: Unremarkable. Bones/joints: Unremarkable. Tubes, lines and devices: Tip of right permacath projects over the region of superior vena cava, about 5.5 cm below the level of the marixa. IMPRESSION: No acute findings.
--- NOTE | 2019-01-09 03:00 | NUR ---
ED Nurse Note: pt void using urinal, urine specimen obtained and sent to lab.
[2019-01-09 03:43] LABS: APPEARANCE,URINE CLEAR; BILIRUBIN, URINE NEGATIVE (NEGATIVE); COLOR,URINE PALE YELLOW; GLUCOSE, URINE (UA) NEGATIVE (NEGATIVE); KETONES,URINE NEGATIVE (NEGATIVE); LEUKOCYTE ESTERASE ,URINE NEGATIVE (NEGATIVE); NITRITE,URINE NEGATIVE (NEGATIVE); PH,URINE 6.5 (4.5-8.0); PROTEIN,URINE 3+ (NEGATIVE); UROBILINOGEN,URINE NORMAL MG/DL (0.0-1.0)
[2019-01-09] MEDS ORDERED: LIPITOR80 MG ORAL (04:20)
[2019-01-09] MEDS ORDERED: VENTOLIN HFA18 GM INH (04:20)
[2019-01-09] MEDS ORDERED: METOPROLOL TART25 MG ORAL (04:20)
[2019-01-09] MEDS ORDERED: PREDNISONE1 MG PO (04:20)
--- NOTE | 2019-01-09 04:28 | NUR ---
ED Nurse Note: REPORT GIVEN TO ZEENAT CUEVAS, PT TRANSFERRED TO [facility] BY SCALE BALANCER, ALL BELONGINGS SENT W/ PT, W/ COMPLETED LIST, PT SIGNED, PT VSS, RESP EVEN AND UNLABORED ON RA, IV INTACT AND PATENT, CARE ENDORSED TO ZEENAT CUEVAS FROM [place].
--- NOTE | 2019-01-09 04:45 | NUR ---
NURSE NOTES: PATIENT ADMITTED FROM ER [facility] WITH ADM DX OF ESRD UNDER PRIMARY DR DRAKE. REPORT RECEIVED FROM [facility] [place]. A/O X 4, RA, NO SOB, NO ACUTE DISTRESS. PERMA CATH ON R SUBCLAVIAN WITH DRY DSG. R THUMB IV INTACT, PATENT. BELONGINGS CHECKED, ORIENTED PATIENT TO SURROUNDINGS. BED IN LOWEST POSITION, LOCKED, ALARMS ON. CALL LIGHT IN REACH. WILL RECEIVED ADM ORDERS FROM DR DRAKE.
[2019-01-09] MEDS ORDERED: Miralax 17gm pkt ORAL PRN ×2 (06:00→10:15)
[2019-01-09] MEDS ORDERED: Albuterol/Ipratropium 3ml neb HHN PRN ×2 (06:00→10:15)
--- NOTE | 2019-01-09 06:25 | NUR ---
NURSE NOTES: RECEIVED ADM ORDER FROM DR FAROOQ. MADE AWARE THAT PATIENT MISSED DIALYSIS.
[2019-01-09] MEDS ORDERED: HydrALAZINE 50mg tab ORAL SCH (06:30)
--- NOTE | 2019-01-09 06:51 | NUR ---
NURSE NOTES: UNABLE TO PULL MEDS FROM [facility]. PATIENT'S NAME DOESN'T APPEAR IN UNIT LIST. WHEN FIND PATIENT BY NAME, NO MEDS APPEARS. PER PIPELINE, WE NEED TO CONTACT ADM. PER ADM, WE NEED TO CONTACT PHARMACY. INFORMED CN AND PRINTING PRESS OPERATOR, WILL FOLLOW UP WITH I.T. AND ENDORSE TO AM RN.
--- NOTE | 2019-01-09 07:25 | Consultation ---
History of Present Illness General Chief Complaint: General Complaint Present Illness HPI 58 year old male with hx of ESRF on HD, HTN, ETOH abuse presented to ER with missed dialysis today. He has been drinking alcohol and feeling depressed. His urine was positive for cocaine as well. Allergies: Coded Allergies: No Known Allergies (Unverified , 01/09/19) Medication History Scheduled Albuterol Sulfate (Ventolin Hfa), Unknown Dose INH EVERY 6 HOURS, (Reported) Atorvastatin (Lipitor), Unknown Dose ORAL DAILY, (Reported) Furosemide (Furosemide), 80 MG ORAL DAILY, (Reported) Hydralazine Hcl* (Hydralazine Hcl*), 50 MG ORAL EVERY 8 HOURS, (Reported) Prednisone (Prednisone), Unknown Dose PO DAILY, (Reported) Miscellaneous Medications Metoprolol Tartrate* (Metoprolol Tartrate*), Unknown Dose ORAL, (Reported) Unable to Obtain Medications (Unable To Obtain Meds), (Reported) Patient History Healthcare decision maker Resuscitation status Full Code Advanced Directive on File Past Medical/Surgical History Past Medical/Surgical History: (1) Cocaine abuse (2) ESRD (end stage renal disease) on dialysis (3) Lumbar spondylosis Review of Systems Constitutional: Reports: no symptoms Eye: Reports: no symptoms ENT: Reports: no symptoms All Other Systems: negative except mentioned in HPI Physical Exam General Appearance: WD/WN, no apparent distress Lines, tubes and drains: peripheral HEENT: normocephalic, anicteric Neck: non-tender, normal alignment Respiratory/Chest: chest wall non-tender, normal breath sounds Breasts: no masses Cardiovascular/Chest: normal rate, no gallop/murmur Last 24 Hour Vital Signs Date Time Temp Pulse Resp B/P (MAP) Pulse Ox O2 Delivery O2 Flow Rate FiO2 01/09/19 04:48 Room Air 01/09/19 04:30 98.4 74 18 130/78 (95) 96 01/09/19 04:29 98.7 68 18 131/67 95 Room Air 01/09/19 02:27 98.1 75 16 132/72 100 Room Air 01/09/19 01:27 98.1 72 16 135/71 98 Room Air 01/09/19 01:27 72 16 Room Air 01/09/19 00:26 98.1 72 20 96 Room Air 01/09/19 00:26 158/97 Intake and Output 6/28/19 6/29/19 19:00 07:00 Intake Total 60 ml Balance 60 ml Intake Oral 50 ml IV Total 10 ml Laboratory Tests Test 01/09/19 00:50 01/09/19 03:21 White Blood Count 7.3 K/UL (4.8-10.8) Red Blood Count 3.37 M/UL (4.70-6.10) L Hemoglobin 10.6 G/DL (14.2-18.0) L Hematocrit 32.7 % (42.0-52.0) L Mean Corpuscular Volume 97 FL (80-99) Mean Corpuscular Hemoglobin 31.4 PG (27.0-31.0) H Mean Corpuscular Hemoglobin Concent 32.3 G/DL (32.0-36.0) Red Cell Distribution Width 12.6 % (11.6-14.8) Platelet Count 285 K/UL (150-450) Mean Platelet Volume 6.9 FL (6.5-10.1) Neutrophils (%) (Auto) 54.0 % (45.0-75.0) Lymphocytes (%) (Auto) 32.1 % (20.0-45.0) Monocytes (%) (Auto) 11.7 % (1.0-10.0) H Eosinophils (%) (Auto) 0.4 % (0.0-3.0) Basophils (%) (Auto) 1.9 % (0.0-2.0) Prothrombin Time 10.2 SEC (9.30-11.50) Prothromb Time International Ratio 1.0 (0.9-1.1) Activated Partial Thromboplast Time 28 SEC (23-33) Sodium Level 130 MMOL/L (136-145) L Potassium Level 4.5 MMOL/L (3.5-5.1) Chloride Level 90 MMOL/L (98-107) L Carbon Dioxide Level 20 MMOL/L (21-32) L Anion Gap 20 mmol/L (5-15) H Blood Urea Nitrogen 75 mg/dL (7-18) H Creatinine 10.9 MG/DL (0.55-1.30) H Estimat Glomerular Filtration Rate 5.9 mL/min (>60) Glucose Level 90 MG/DL (74-106) Calcium Level 6.4 MG/DL (8.5-10.1) L Total Bilirubin 0.2 MG/DL (0.2-1.0) Aspartate Amino Transf (AST/SGOT) 11 U/L (15-37) L Alanine Aminotransferase (ALT/SGPT) 8 U/L (12-78) L Alkaline Phosphatase 94 U/L (46-116) Total Creatine Kinase 213 U/L (26-308) Troponin I 0.003 ng/mL (0.000-0.056) Pro-B-Type Natriuretic Peptide 2947 pg/mL (0-125) H Total Protein 7.7 G/DL (6.4-8.2) Albumin 4.0 G/DL (3.4-5.0) Globulin 3.7 g/dL Albumin/Globulin Ratio 1.1 (1.0-2.7) Lipase 111 U/L (73-393) Serum Alcohol 78 mg/dL Urine Color Pale yellow Urine Appearance Clear Urine pH 6.5 (4.5-8.0) Urine Specific [place] 1.010 (1.005-1.035) Urine Protein 3+ (NEGATIVE) H Urine Glucose (UA) Negative (NEGATIVE) Urine Ketones Negative (NEGATIVE) Urine Blood 2+ (NEGATIVE) H Urine Nitrite Negative (NEGATIVE) Urine Bilirubin Negative (NEGATIVE) Urine Urobilinogen Normal MG/DL (0.0-1.0) Urine Leukocyte Esterase Negative (NEGATIVE) Urine RBC 2-4 /HPF (0 - 0) H Urine WBC 0-2 /HPF (0 - 0) Urine Squamous Epithelial Cells Occasional /LPF Urine Bacteria Occasional /HPF (NONE) Urine Opiates Screen Negative (NEGATIVE) Urine Barbiturates Screen Negative (NEGATIVE) Phencyclidine (PCP) Screen Negative (NEGATIVE) Urine Amphetamines Screen Negative (NEGATIVE) Urine Benzodiazepines Screen Negative (NEGATIVE) Urine Cocaine Screen Positive (NEGATIVE) H Urine Marijuana (THC) Screen Negative (NEGATIVE) Height (Feet): 5 Height (Inches): 9.00 Weight (Pounds): 170 Medications Current Medications Medications (Trade) Dose Ordered Sig/Harish Route PRN Reason Start Time Stop Time Status Last Admin Dose Admin Acetaminophen (Tylenol) 650 mg Q4H PRN ORAL Fever 01/09/19 06:00 02/08/19 05:59 Albuterol/ Ipratropium (Albuterol/ Ipratropium) 3 ml Q4H PRN HHN Shortness of Breath 01/09/19 06:00 01/14/19 05:59 Dextrose (Dextrose 50%) 25 ml Q30M PRN IV Hypoglycemia 01/09/19 06:00 02/08/19 05:59 Dextrose (Dextrose 50%) 50 ml Q30M PRN IV Hypoglycemia 01/09/19 06:00 02/08/19 05:59 Heparin Sodium (Porcine) (Heparin 5000 units/ml) 5,000 units EVERY 12 HOURS SUBQ 01/09/19 09:00 02/08/19 08:59 Hydralazine HCl (Apresoline) 50 mg EVERY 8 HOURS ORAL 01/09/19 06:30 02/08/19 06:29 Ondansetron HCl (Zofran) 4 mg Q6H PRN IVP Nausea & Vomiting 01/09/19 06:00 02/08/19 05:59 Polyethylene Glycol (Miralax) 17 gm DAILYPRN PRN ORAL Constipation 01/09/19 06:00 02/08/19 05:59 Temazepam (Restoril) 15 mg HSPRN PRN ORAL Insomnia 01/09/19 06:00 01/16/19 05:59 Assessment/Plan Problem List: (1) Acute alcohol intoxication ICD Codes: F10.929 - Alcohol use, unspecified with intoxication, unspecified SNOMED: 40197406, [id number] Qualifiers: Qualified Codes: F10.929 - Alcohol use, unspecified with intoxication, unspecified (2) ESRD (end stage renal disease) on dialysis ICD Codes: N18.6 - End stage renal disease; Z99.2 - Dependence on renal dialysis SNOMED: 025080880 (3) Patient's noncompliance with other medical treatment and regimen ICD Codes: Z91.19 - Patient's noncompliance with other medical treatment and regimen SNOMED: 282912260 (4) Cocaine abuse ICD Codes: F14.10 - Cocaine abuse, uncomplicated SNOMED: 93266115 Assessment/Plan: HD folic acid, thiamine psych evaluation nephrology f/u Qian Abdi MD Jan 09, 2019 07:25
--- NOTE | 2019-01-09 07:32 | NUR ---
HAND-OFF: Report given to Babita EPPERSON.
[2019-01-09] MEDS ORDERED: chlordiazePOXIDE 25mg Cap ORAL PRN ×2 (07:45→10:15)
--- NOTE | 2019-01-09 08:15 | NUR ---
NURSE NOTES: Patient alert and oriented,respirations are unlabored,patient has shunt left arm with bruit and thrill.Permacath right subclavian intact.Patient has old shunt to the right arm.Patient ate breakfast.Bed alarm is ,call light within reach.
[2019-01-09] MEDS ORDERED: Thiamine 100mg tab ORAL SCH (09:00)
[2019-01-09] MEDS ORDERED: Heparin 5000 units/ml inj SUBQ SCH (09:00)
[2019-01-09] MEDS: HydrALAZINE 50mg tab ORAL SCH ×3 (10:29→21:53)
--- NOTE | 2019-01-09 10:29 | NUR ---
NURSE NOTES: Dr Cm was here to see patient earlier and aware that patient missed his dialysis on Friday,DR Cm will asses patient regarding dialysis schedule,BP medication not given at this time for possibly dialysis.will monitor patient blood pressure.
--- NOTE | 2019-01-09 10:30 | Consultation ---
Consult Note Consult Note asked to eval for dialysis management 58 year old male with hx of ESRF on HD, HTN, ETOH abuse presented to ER with missed dialysis today. He has been drinking alcohol and feeling depressed. His urine was positive for cocaine as well. interviewed examined data reviewed . Assessment/Plan ESRD, has a catheter - Missed dialysis yesterday Anemia of CKD Hypertensive renal and heart disease Cocaine abuse Cardiomyopathy alcohol intoxication HD today + UF 2D Echo ? monitor renal parameters BP control per orders Richar Cm MD Jan 09, 2019 10:30
[2019-01-09] MEDS: Heparin 5000 units/ml inj SUBQ SCH ×2 (10:41→21:55)
[2019-01-09] MEDS: Thiamine 100mg tab ORAL SCH (10:41)
--- NOTE | 2019-01-09 15:19 | NUR ---
CASE MANAGEMENT: INITIAL REVIEW 58 YO M PRESENTED TO OUR ED FROM HOME CC: DEPRESSION. ETOH ABUSE. PHMx: HD MWF. ESRD. SI: ESRD. T 98.1 HR 72 RR 20 B/P 158/97 SATS 96% ON RA NA 130 CL 90 CO2 20 BUN 75 CR 10.9 CA 6.4 AST 11 ALT 8 BNP 2947 U TOX (+COCAINE) IS: PEPCID IV X1 PATIENT ADMITTED TO MED/SURG STATUS 01/09/2019 @ 0519 DCP: PATIENT TO BE DISCHARGED TO HOME ONCE MEDICALLY CLEARED. PLAN OF CARE: PSYCH EVAL Addendum: 01/11/19 at 1804 by Jessica Nguyen CM INTERQUAL MET
--- NOTE | 2019-01-09 17:30 | History and Physical Report ---
DATE OF ADMISSION: 01/09/2019 TIME SEEN: On 01/09/2019 at 10 a.m. CONSULTANTS: 1. Richar Cm M.D. 2. Qian Abdi M.D. CHIEF COMPLAINT: Alcohol use, ESRD. BRIEF HISTORY: This is a 58-year-old male, who comes in to [facility] last night with lethargy. He has ESRD, on dialysis. The patient was admitted to medical floor for further treatment. Currently, sleeping in bed, refusing to answer questions. REVIEW OF SYSTEMS: Unavailable. PAST MEDICAL HISTORY: Includes ACS, pancreatitis, respiratory failure, cocaine abuse, alcohol abuse, and ESRD. PAST SURGICAL HISTORY: Unknown. MEDICATIONS: Include heparin, folic acid, thiamine, Tylenol, Librium, hydralazine, Zofran, polyethylene glycol, and Restoril. ALLERGIES: Denies. SOCIAL HISTORY: Unable to obtain due to the patient's lethargy. PHYSICAL EXAMINATION: GENERAL: Lethargic in bed, refusing to answer questions. VITAL SIGNS: Temperature 98 degrees, pulse 77, respirations 18, blood pressure 146/83. CARDIOVASCULAR: No murmur. LUNGS: Poor air exchange. ABDOMEN: Bowel sounds distant. EXTREMITIES: No cyanosis, clubbing, or edema. NEUROLOGIC: The patient is lethargic in bed, but moves all extremities. LABORATORY AND DIAGNOSTIC DATA: Labs at this time show hemoglobin and hematocrit 10.6/32, otherwise CBC is normal. BMP shows sodium 130, chloride 90, CO2 20. BUN and creatinine 75/10.9. Glucose 90. AST 11, ALT 8. Troponin 0.003. BNP 2947. Albumin 4.0. INR is 1.0, PTT 28. Urine-tox positive for cocaine. Urinalysis is 2+ blood, 3+ protein. ASSESSMENT: 1. Alcohol abuse. 2. Lethargy. 3. Anemia. 4. ESRD. PLAN: Detox. Dietary followup. Dialysis p.r.n. PT and dietary evaluation. CBC and BMP in the morning. Jadiel Manzanares D.O. DR: GLENN JOB#: [id number] CC:
[2019-01-09] MEDS: Docusate 100mg cap ORAL SCH (18:00)
--- NOTE | 2019-01-09 19:11 | NUR ---
NURSE NOTES: Patient complaint of pain,tylenol 650mg po given as ordered.Will endorse to oncoming Nurse to follow up .
--- NOTE | 2019-01-09 20:00 | NUR ---
HAND-OFF: Report given to Caridad EPPERSON.
--- NOTE | 2019-01-09 20:02 | NUR ---
NURSE NOTES: Patient alert and oriented,respirations are unlabored,patient has shunt left arm. Permacath right subclavian intact.Patient has old shunt to the right arm .Bed alarm is on ,call light within reach.
[2019-01-10 04:00] VITALS: BP 125/73
[2019-01-10] MEDS: HydrALAZINE 50mg tab ORAL SCH ×3 (05:10→21:19)
--- NOTE | 2019-01-10 06:47 | Pulmonology Progress Note ---
Assessment/Plan Problems: (1) Acute alcohol intoxication (2) ESRD (end stage renal disease) on dialysis (3) Patient's noncompliance with other medical treatment and regimen (4) Cocaine abuse Assessment/Plan got dialyzed yesterday, 3 liters taken off symptomatic treatment continue bp meds pt is sober now Subjective ROS Limited/Unobtainable: No Constitutional: Reports: no symptoms HEENT: Repors: no symptoms Allergies: Coded Allergies: No Known Allergies (Unverified , 01/09/19) Objective Last 24 Hour Vital Signs Date Time Temp Pulse Resp B/P (MAP) Pulse Ox O2 Delivery O2 Flow Rate FiO2 01/10/19 05:10 125/73 01/10/19 04:00 97.6 73 20 125/73 (90) 96 01/10/19 00:54 98.2 01/09/19 23:48 98.2 83 20 126/69 (88) 97 01/09/19 21:53 141/72 01/09/19 21:00 Room Air 01/09/19 20:00 97.2 85 16 128/81 (97) 97 01/09/19 19:35 83 18 96 Room Air 21 01/09/19 16:00 97.7 17 141/72 (95) 99 01/09/19 12:00 97.5 16 121/77 (92) 99 01/09/19 10:29 146/83 01/09/19 09:47 Room Air 01/09/19 08:23 98.1 77 18 146/83 (104) Intake and Output 01/09/19 01/10/19 18:59 06:59 Intake Total 360 ml 440 ml Output Total 200 ml 250 ml Balance 160 ml 190 ml Intake Oral 360 ml 440 ml Output Urine Total 200 ml 250 ml # Voids 1 General Appearance: WD/WN, no acute distress HEENT: normocephalic, atraumatic Respiratory/Chest: chest wall non-tender, lungs clear, normal breath sounds Cardiovascular: normal peripheral pulses, normal rate Abdomen: normal bowel sounds, soft, non tender, no organomegaly Genitourinary: normal external genitalia Extremities: no cyanosis Skin: no lesions Microbiology Date/Time Source Procedure Growth Status 01/09/19 03:00 Rectum Received Laboratory Tests 01/09/19 06:50: Troponin I 0.012, Hepatitis B Surface Antigen [Pending] Current Medications Medications (Trade) Dose Ordered Sig/Harish Route PRN Reason Start Time Stop Time Status Last Admin Dose Admin Acetaminophen (Tylenol) 650 mg Q4H PRN ORAL fever/pain 01/09/19 18:22 02/08/19 18:21 01/10/19 00:24 Albuterol/ Ipratropium (Albuterol/ Ipratropium) 3 ml Q4H PRN HHN Shortness of Breath 01/09/19 10:15 01/14/19 10:14 Chlordiazepoxide (Librium) 25 mg Q6H PRN ORAL Agitation 01/09/19 10:15 01/16/19 10:14 Clonidine HCl (Catapres Tab) 0.1 mg Q4H PRN ORAL BP over 165 syst 01/09/19 10:45 02/08/19 10:44 Dextrose (Dextrose 50%) 25 ml Q30M PRN IV Hypoglycemia 01/09/19 10:15 02/08/19 10:14 Dextrose (Dextrose 50%) 50 ml Q30M PRN IV Hypoglycemia 01/09/19 10:15 02/08/19 10:14 Docusate Sodium (Colace) 100 mg TWICE A DAY ORAL 01/09/19 18:00 02/08/19 17:59 Folic Acid (Folate) 1 mg DAILY ORAL 01/09/19 10:30 02/08/19 10:29 01/09/19 10:41 Heparin Sodium (Porcine) (Heparin 5000 units/ml) 5,000 units EVERY 12 HOURS SUBQ 01/09/19 10:30 02/08/19 10:29 01/09/19 21:55 Hydralazine HCl (Apresoline) 50 mg EVERY 8 HOURS ORAL 01/09/19 10:30 02/08/19 10:29 01/10/19 05:10 Ondansetron HCl (Zofran) 4 mg Q6H PRN IVP Nausea & Vomiting 01/09/19 10:15 02/08/19 10:14 Pantoprazole (Protonix) 40 mg DAILY ORAL 01/10/19 09:00 02/09/19 08:59 Polyethylene Glycol (Miralax) 17 gm DAILYPRN PRN ORAL Constipation 01/09/19 10:15 02/08/19 10:14 Temazepam (Restoril) 15 mg HSPRN PRN ORAL Insomnia 01/09/19 21:00 01/16/19 20:59 01/10/19 00:25 Thiamine HCl (Vitamin B1) 100 mg DAILY ORAL 01/09/19 10:30 02/08/19 10:29 01/09/19 10:41 Qian Abdi MD Jan 10, 2019 06:47
--- NOTE | 2019-01-10 07:09 | NUR ---
HAND-OFF: Report given to ZEENAT Jc.
--- NOTE | 2019-01-10 08:00 | NUR ---
NURSE NOTES: Patient awake and alert and oriented,sitting up in bed and eating breakfast.Dialysis Catheter in the upper right chest intact.No complaints at this time.Call light within reach.
--- NOTE | 2019-01-10 08:02 | General Progress Note ---
Assessment/Plan Problem List: (1) Neck pain ICD Codes: M54.2 - Cervicalgia SNOMED: 50514785 (2) Back pain ICD Codes: M54.9 - Dorsalgia, unspecified SNOMED: 860782253 (3) ESRD (end stage renal disease) on dialysis ICD Codes: N18.6 - End stage renal disease; Z99.2 - Dependence on renal dialysis SNOMED: 373234149 (4) Acute alcohol intoxication ICD Codes: F10.929 - Alcohol use, unspecified with intoxication, unspecified SNOMED: 79455458, 6392589 Qualifiers: Qualified Codes: F10.929 - Alcohol use, unspecified with intoxication, unspecified (5) Cocaine abuse ICD Codes: F14.10 - Cocaine abuse, uncomplicated SNOMED: 39113710 Status: stable, progressing Assessment/Plan: pt diet pain control dialysis cbc bmp am pain neuro eval Subjective Constitutional: Reports: weakness Allergies: Coded Allergies: No Known Allergies (Unverified , 01/09/19) All Systems: reviewed and negative except above Subjective eating calm c/o sl neck back pain Objective Last 24 Hour Vital Signs Date Time Temp Pulse Resp B/P (MAP) Pulse Ox O2 Delivery O2 Flow Rate FiO2 01/10/19 05:10 125/73 01/10/19 04:00 97.6 73 20 125/73 (90) 96 01/10/19 00:54 98.2 01/09/19 23:48 98.2 83 20 126/69 (88) 97 01/09/19 21:53 141/72 01/09/19 21:00 Room Air 01/09/19 20:00 97.2 85 16 128/81 (97) 97 01/09/19 19:35 83 18 96 Room Air 21 01/09/19 16:00 97.7 17 141/72 (95) 99 01/09/19 12:00 97.5 16 121/77 (92) 99 01/09/19 10:29 146/83 01/09/19 09:47 Room Air 01/09/19 08:23 98.1 77 18 146/83 (104) Intake and Output 01/09/19 01/10/19 19:00 07:00 Intake Total 360 ml 440 ml Output Total 200 ml 250 ml Balance 160 ml 190 ml Intake Oral 360 ml 440 ml Output Urine Total 200 ml 250 ml # Voids 1 Height (Feet): 5 Height (Inches): 9.00 Weight (Pounds): 189 General Appearance: alert EENT: normal ENT inspection Neck: normal alignment Cardiovascular: normal peripheral pulses, normal rate, regular rhythm Respiratory/Chest: chest wall non-tender, lungs clear, normal breath sounds Abdomen: normal bowel sounds, non tender, soft Extremities: normal inspection Edema: no edema noted Arm (L), no edema noted Arm (R), no edema noted Leg (L), no edema noted Leg (R), no edema noted Pedal (L), no edema noted Pedal (R), no edema noted Generalized Neurologic: responsive, motor weakness Skin: normal pigmentation, warm/dry Jadiel Manzanares DO Jan 10, 2019 08:01
[2019-01-10 08:21] LABS: BASOPHILS % (AUTO) 1.8 % (0.0-2.0); EOSINOPHILS % (AUTO) 0.8 % (0.0-3.0); HEMATOCRIT 34.5 % (42.0-52.0); HEMOGLOBIN 11.2 G/DL (14.2-18.0); LYMPHOCYTES % (AUTO) 28.9 % (20.0-45.0); MEAN CORPUSCULAR VOLUME 96 FL (80-99); NEUTROPHILS % (AUTO) 53.6 % (45.0-75.0); PLATELET COUNT 273 K/UL (150-450); RED BLOOD COUNT 3.58 M/UL (4.70-6.10); RED CELL DISTRIBUTION WIDTH 12.7 % (11.6-14.8); WHITE BLOOD COUNT 6.1 K/UL (4.8-10.8)
[2019-01-10 08:40] VITALS: BP 140/75
[2019-01-10] MEDS: Thiamine 100mg tab ORAL SCH (08:49)
[2019-01-10] MEDS: Heparin 5000 units/ml inj SUBQ SCH ×2 (08:51→21:21)
[2019-01-10] MEDS: Docusate 100mg cap ORAL SCH ×2 (08:55→18:00)
[2019-01-10 08:57] LABS: ALANINE AMINOTRANSFERASE 9 U/L (12-78); ALBUMIN 3.5 G/DL (3.4-5.0); ALKALINE PHOSPHATASE 87 U/L (46-116); ANION GAP 14 mmol/L (5-15); ASPARTATE AMINO TRANSFERASE 10 U/L (15-37); BILIRUBIN,TOTAL 0.2 MG/DL (0.2-1.0); BLOOD UREA NITROGEN 78 mg/dL (7-18); CALCIUM 6.3 MG/DL (8.5-10.1); CARBON DIOXIDE 24 MMOL/L (21-32); CHLORIDE 95 MMOL/L (98-107); CHOLESTEROL 131 MG/DL (< 200); FERRITIN 726 NG/ML (8-388); HDL CHOLESTEROL 72 MG/DL (40-60); PHOSPHORUS 7.6 MG/DL (2.5-4.9); POTASSIUM 4.4 MMOL/L (3.5-5.1); SODIUM 133 MMOL/L (136-145); TRIGLYCERIDES 64 MG/DL (30-150)
[2019-01-10 09:23] LABS: % IRON SATURATION 37 % (15-50); IRON 70 ug/dL (50-175); TOTAL IRON BINDING CAPACITY 188 ug/dL (250-450)
[2019-01-10 09:30] LABS: GAMMA GLUTAMYL TRANSPEPTIDASE 14 U/L (5-85)
--- NOTE | 2019-01-10 10:30 | NUR ---
PT Note Attempted to see patient for eval/tx. Patient requests to defer PT at this time; c/o having upper back pain and has not had any pain meds. RN is aware. Will attempt again later.
[2019-01-10 12:00] VITALS: BP 143/70
--- NOTE | 2019-01-10 13:18 | General Progress Note ---
Assessment/Plan Assessment/Plan: (1) Lumbar DDD (2) Lumbar Spondylosis (3) Cocaine Abuse Patient will be started on [place] 5/325mg PO 1 tab Q4H PRN. D/w Dr. Rosado and he concurred. Subjective Date patient seen: Jan 10, 2019 Time patient seen: 12:30 - pm Allergies: Coded Allergies: No Known Allergies (Unverified , 01/09/19) Subjective REVIEW OF SYSTEMS: Denies rash, fever, chills, sweating, dizziness, drowsiness, blurred vision, or change in weight. No chest pain. No nausea, vomiting, diarrhea, or blood in the stool or urine. No bowel or bladder incontinence. He is complaining of low back pain. SUBJECTIVE: Patient is a known patient from prior admission and has been admitted due to ESRD under the care of Dr. Manzanares. He continues to c/o back pain and we were consulted so patient has adequate pain control while here in the hospital. He was again found to have cocaine in his urine, was advised to stop the illegal substance and enter into a detox. He seems to understand. Objective Last 24 Hour Vital Signs Date Time Temp Pulse Resp B/P (MAP) Pulse Ox O2 Delivery O2 Flow Rate FiO2 01/10/19 09:40 85 18 97 Room Air 21 01/10/19 09:00 Room Air 01/10/19 08:40 97.8 88 20 140/75 (96) 97 01/10/19 05:10 125/73 01/10/19 04:00 97.6 73 20 125/73 (90) 96 01/10/19 00:54 98.2 01/09/19 23:48 98.2 83 20 126/69 (88) 97 01/09/19 21:53 141/72 01/09/19 21:00 Room Air 01/09/19 20:00 97.2 85 16 128/81 (97) 97 01/09/19 19:35 83 18 96 Room Air 21 01/09/19 16:00 97.7 17 141/72 (95) 99 Intake and Output 01/09/19 01/10/19 19:00 07:00 Intake Total 360 ml 440 ml Output Total 200 ml 250 ml Balance 160 ml 190 ml Intake Oral 360 ml 440 ml Output Urine Total 200 ml 250 ml # Voids 1 Laboratory Tests 01/10/19 07:10: White Blood Count 6.1, Red Blood Count 3.58L, Hemoglobin 11.2L, Hematocrit 34.5L , Mean Corpuscular Volume 96, Mean Corpuscular Hemoglobin 31.2H, Mean Corpuscular Hemoglobin Concent 32.4, Red Cell Distribution Width 12.7, Platelet Count 273, Mean Platelet Volume 6.6, Neutrophils (%) (Auto) 53.6, Lymphocytes (% ) (Auto) 28.9, Monocytes (%) (Auto) 15.0H, Eosinophils (%) (Auto) 0.8, Basophils (%) (Auto) 1.8, Sodium Level 133L, Potassium Level 4.4, Chloride Level 95L, Carbon Dioxide Level 24, Anion Gap 14, Blood Urea Nitrogen 78H, Creatinine 9.0H, Estimat Glomerular Filtration Rate 7.4, Glucose Level 131H, Uric Acid 6.9, Calcium Level 6.3L, Phosphorus Level 7.6H, Magnesium Level 2.2, Iron Level 70, Total Iron Binding Capacity 188L, Percent Iron Saturation 37, Unsaturated Iron Binding 118, Ferritin 726H, Total Bilirubin 0.2, Gamma Glutamyl Transpeptidase 14, Aspartate Amino Transf (AST/SGOT) 10L, Alanine Aminotransferase (ALT/SGPT) 9L, Alkaline Phosphatase 87, Troponin I 0.004, C- Reactive Protein, Quantitative 1.4H, Pro-B-Type Natriuretic Peptide 3767H, Total Protein 7.1, Albumin 3.5, Globulin 3.6, Albumin/Globulin Ratio 1.0, Triglycerides Level 64, Cholesterol Level 131, LDL Cholesterol 48, HDL Cholesterol 72H, Cholesterol/HDL Ratio 1.8L, Vitamin B12 Level 368, Folate 9.1, Thyroid Stimulating Hormone (TSH) 1.837 Height (Feet): 5 Height (Inches): 9.00 Weight (Pounds): 189 Objective GENERAL: Alert, awake, and oriented. LUNGS: Decreased breath sounds bilaterally. HEART: S1 and S2 regular. ABDOMEN: Soft, nontender. EXTREMITIES: No CCE NEURO: weakness noted James Ramirez Jan 10, 2019 13:18
[2019-01-10] MEDS: HYDROcodone/Acetamin 5/325 tab ORAL PRN ×2 (14:18→19:13)
--- NOTE | 2019-01-10 14:59 | NUR ---
PT Note PT louis completed. Patient is independent in all mobility and is steady in gait with the rollator. No further PT f/u treatment recommended at this time. Addendum: 01/10/19 at 1459 by MAUREEN WHEELER PT Amended: Links added.
--- NOTE | 2019-01-10 15:41 | Nephrology Progress Note ---
Assessment/Plan Problem List: (1) ESRD (end stage renal disease) on dialysis (2) Cocaine abuse (3) Cardiomyopathy Assessment ESRD, has a catheter - Missed dialysis yesterday Anemia of CKD Hypertensive renal and heart disease Cocaine abuse Cardiomyopathy alcohol intoxication Plan HD 01/09 next 01/11-- 2D Echo ? monitor renal parameters BP control per orders Subjective ROS Limited/Unobtainable: No Constitutional: Reports: malaise, weakness Objective Objective Last 24 Hour Vital Signs Date Time Temp Pulse Resp B/P (MAP) Pulse Ox O2 Delivery O2 Flow Rate FiO2 01/10/19 14:15 121/67 01/10/19 09:40 85 18 97 Room Air 21 01/10/19 09:00 Room Air 01/10/19 08:40 97.8 88 20 140/75 (96) 97 01/10/19 05:10 125/73 01/10/19 04:00 97.6 73 20 125/73 (90) 96 01/10/19 00:54 98.2 01/09/19 23:48 98.2 83 20 126/69 (88) 97 01/09/19 21:53 141/72 01/09/19 21:00 Room Air 01/09/19 20:00 97.2 85 16 128/81 (97) 97 01/09/19 19:35 83 18 96 Room Air 21 01/09/19 16:00 97.7 17 141/72 (95) 99 Intake and Output 01/09/19 01/10/19 19:00 07:00 Intake Total 360 ml 440 ml Output Total 200 ml 250 ml Balance 160 ml 190 ml Intake Oral 360 ml 440 ml Output Urine Total 200 ml 250 ml # Voids 1 Laboratory Tests 01/10/19 07:10: White Blood Count 6.1, Red Blood Count 3.58L, Hemoglobin 11.2L, Hematocrit 34.5L , Mean Corpuscular Volume 96, Mean Corpuscular Hemoglobin 31.2H, Mean Corpuscular Hemoglobin Concent 32.4, Red Cell Distribution Width 12.7, Platelet Count 273, Mean Platelet Volume 6.6, Neutrophils (%) (Auto) 53.6, Lymphocytes (% ) (Auto) 28.9, Monocytes (%) (Auto) 15.0H, Eosinophils (%) (Auto) 0.8, Basophils (%) (Auto) 1.8, Sodium Level 133L, Potassium Level 4.4, Chloride Level 95L, Carbon Dioxide Level 24, Anion Gap 14, Blood Urea Nitrogen 78H, Creatinine 9.0H, Estimat Glomerular Filtration Rate 7.4, Glucose Level 131H, Uric Acid 6.9, Calcium Level 6.3L, Phosphorus Level 7.6H, Magnesium Level 2.2, Iron Level 70, Total Iron Binding Capacity 188L, Percent Iron Saturation 37, Unsaturated Iron Binding 118, Ferritin 726H, Total Bilirubin 0.2, Gamma Glutamyl Transpeptidase 14, Aspartate Amino Transf (AST/SGOT) 10L, Alanine Aminotransferase (ALT/SGPT) 9L, Alkaline Phosphatase 87, Troponin I 0.004, C- Reactive Protein, Quantitative 1.4H, Pro-B-Type Natriuretic Peptide 3767H, Total Protein 7.1, Albumin 3.5, Globulin 3.6, Albumin/Globulin Ratio 1.0, Triglycerides Level 64, Cholesterol Level 131, LDL Cholesterol 48, HDL Cholesterol 72H, Cholesterol/HDL Ratio 1.8L, Vitamin B12 Level 368, Folate 9.1, Thyroid Stimulating Hormone (TSH) 1.837 Height (Feet): 5 Height (Inches): 9.00 Weight (Pounds): 189 General Appearance: no apparent distress Cardiovascular: tachycardia Respiratory/Chest: decreased breath sounds Abdomen: soft Richar Cm MD Jan 10, 2019 15:41
[2019-01-10 16:00] VITALS: BP 118/71
--- NOTE | 2019-01-10 19:06 | NUR ---
NURSE NOTES: Patient sitting up in bed and watching TV,patient requesting pain medication for complaint of back pain,will give pain medication as ordered and endorse to oncoming nurse to reasses.
--- NOTE | 2019-01-10 19:59 | NUR ---
NURSE NOTES: [facility] Nephrology notified message center FRITZ took message and will notify Dialysis Nurse regarding order written for patient to receive Dialysis on 01/11/19,per DR Cm order.
[2019-01-10 20:00] VITALS: BP 133/84
[2019-01-11] VITALS: BP 128/74
[2019-01-11] MEDS: HYDROcodone/Acetamin 5/325 tab ORAL PRN ×4 (00:30→13:04)
[2019-01-11 04:00] VITALS: BP 130/77
[2019-01-11] MEDS: HydrALAZINE 50mg tab ORAL SCH ×2 (05:35→14:00)
--- NOTE | 2019-01-11 07:33 | NUR ---
HAND-OFF: Report given to ZEENAT Hendrix.
--- NOTE | 2019-01-11 07:44 | NUR ---
NURSE NOTES: Pt sitting up at bedside eating breakfast. has pending dialysis for today. Pt is able to verbalize known needs. Breathing room air. Current plan of care will be followed
[2019-01-11 08:00] VITALS: BP 154/85
[2019-01-11] MEDS: Thiamine 100mg tab ORAL SCH (08:11)
[2019-01-11] MEDS: Docusate 100mg cap ORAL SCH ×2 (08:12→08:22)
[2019-01-11] MEDS: Heparin 5000 units/ml inj SUBQ SCH (08:16)
--- NOTE | 2019-01-11 08:29 | NUR ---
NURSE NOTES: Provided with medication. Dr Manzanares seen pt pt did not have any concerns while Dr was in room. Immediately as the Dr exited pt stated " I need you to put an order in for Benadryl" Pt made aware that automatic typewriter inspector does not have authorization to enter orders, . Pt became upset, I have been asking the nurse since last night for Benadryl. " Pt made aware that the Dr was attempted to be contacted in regards to Benadryl, per report of outgoing nurse. " We are going to have a good day pt stated sarcastically. Test And Balance Engineer informed pt that Dr would be contacted but an order could not be put in place without a Dr order
--- NOTE | 2019-01-11 08:30 | General Progress Note ---
Assessment/Plan Assessment/Plan: (1) Lumbar DDD (2) Lumbar Spondylosis (3) Cocaine Abuse Patient will be continued on [place]. D/w Dr. Rosado and he concurred. Subjective Date patient seen: Jan 11, 2019 Time patient seen: 07:15 - am Allergies: Coded Allergies: No Known Allergies (Unverified , 01/09/19) Subjective REVIEW OF SYSTEMS: Denies rash, fever, chills, sweating, dizziness, drowsiness, blurred vision, or change in weight. No chest pain. No nausea, vomiting, diarrhea, or blood in the stool or urine. No bowel or bladder incontinence. He is complaining of low back pain. SUBJECTIVE: Patient is in bed continued to c/o pain which has been tolerated on the [place]. He has no new complaints at this time. Objective Last 24 Hour Vital Signs Date Time Temp Pulse Resp B/P (MAP) Pulse Ox O2 Delivery O2 Flow Rate FiO2 01/11/19 05:35 130/77 01/11/19 05:23 97.6 01/11/19 04:00 98.2 96 20 130/77 (94) 97 01/11/19 00:00 97.8 92 20 128/74 (92) 97 01/10/19 21:19 133/84 01/10/19 21:00 Room Air 01/10/19 20:14 89 18 99 Room Air 21 01/10/19 20:10 84 18 95 Room Air 21 01/10/19 20:09 88 18 95 Room Air 21 01/10/19 20:09 21 01/10/19 20:00 97.6 90 20 133/84 (100) 97 01/10/19 16:00 97.9 84 20 118/71 (87) 96 01/10/19 14:15 121/67 01/10/19 12:00 97.7 102 18 143/70 (94) 97 01/10/19 09:40 85 18 97 Room Air 21 01/10/19 09:00 Room Air 01/10/19 08:40 97.8 88 20 140/75 (96) 97 Intake and Output 01/10/19 01/11/19 19:00 07:00 Intake Total 300 ml 450 ml Output Total 400 ml 620 ml Balance -100 ml -170 ml Intake Oral 300 ml 450 ml Output Urine Total 400 ml 620 ml # Voids 2 3 Height (Feet): 5 Height (Inches): 9.00 Weight (Pounds): 189 Objective GENERAL: Alert, awake, and oriented. LUNGS: Decreased breath sounds bilaterally. HEART: S1 and S2 regular. ABDOMEN: Soft, nontender. EXTREMITIES: No CCE NEURO: weakness noted James Ramirez Jan 11, 2019 08:30
--- NOTE | 2019-01-11 08:38 | General Progress Note ---
Assessment/Plan Problem List: (1) Neck pain ICD Codes: M54.2 - Cervicalgia SNOMED: 27433809 (2) Back pain ICD Codes: M54.9 - Dorsalgia, unspecified SNOMED: 889014722 (3) ESRD (end stage renal disease) on dialysis ICD Codes: N18.6 - End stage renal disease; Z99.2 - Dependence on renal dialysis SNOMED: 835970374 (4) Acute alcohol intoxication ICD Codes: F10.929 - Alcohol use, unspecified with intoxication, unspecified SNOMED: 65892673, 4283489 Qualifiers: Qualified Codes: F10.929 - Alcohol use, unspecified with intoxication, unspecified (5) Cocaine abuse ICD Codes: F14.10 - Cocaine abuse, uncomplicated SNOMED: 04866901 Status: stable, progressing Assessment/Plan: pt diet pain control dialysis cbc bmp am pain neuro eval dc plan w hh Subjective Constitutional: Reports: weakness Allergies: Coded Allergies: No Known Allergies (Unverified , 01/09/19) All Systems: reviewed and negative except above Subjective c/o sl gen pain Objective Last 24 Hour Vital Signs Date Time Temp Pulse Resp B/P (MAP) Pulse Ox O2 Delivery O2 Flow Rate FiO2 01/11/19 05:35 130/77 01/11/19 05:23 97.6 01/11/19 04:00 98.2 96 20 130/77 (94) 97 01/11/19 00:00 97.8 92 20 128/74 (92) 97 01/10/19 21:19 133/84 01/10/19 21:00 Room Air 01/10/19 20:14 89 18 99 Room Air 21 01/10/19 20:10 84 18 95 Room Air 21 01/10/19 20:09 88 18 95 Room Air 21 01/10/19 20:09 21 01/10/19 20:00 97.6 90 20 133/84 (100) 97 01/10/19 16:00 97.9 84 20 118/71 (87) 96 01/10/19 14:15 121/67 01/10/19 12:00 97.7 102 18 143/70 (94) 97 01/10/19 09:40 85 18 97 Room Air 21 01/10/19 09:00 Room Air 01/10/19 08:40 97.8 88 20 140/75 (96) 97 Intake and Output 01/10/19 01/11/19 19:00 07:00 Intake Total 300 ml 450 ml Output Total 400 ml 620 ml Balance -100 ml -170 ml Intake Oral 300 ml 450 ml Output Urine Total 400 ml 620 ml # Voids 2 3 Height (Feet): 5 Height (Inches): 9.00 Weight (Pounds): 189 General Appearance: lethargic EENT: normal ENT inspection Neck: normal alignment Cardiovascular: normal peripheral pulses, normal rate, regular rhythm Respiratory/Chest: chest wall non-tender, lungs clear, normal breath sounds Abdomen: normal bowel sounds, non tender, soft Extremities: normal inspection Edema: no edema noted Arm (L), no edema noted Arm (R), no edema noted Leg (L), no edema noted Leg (R), no edema noted Pedal (L), no edema noted Pedal (R), no edema noted Generalized Neurologic: responsive, motor weakness Skin: normal pigmentation, warm/dry Jadiel Manzanares DO Jan 11, 2019 08:38
--- NOTE | 2019-01-11 09:13 | NUR ---
NURSE NOTES: Pt requested pain medication before the 4 hour time lapse states his pain is a 10. ' It is time for me to get it I know it was 4 when I got it" Informed of the time " Just give it to me then" " My pain is a 10 when I cough" Investment Counselor entered as pt requested pt snoring. Investment Counselor informed him that I have the medication he recently requested and if he was still in pain? Pt grabbed the cup and placed pill in his mouth. Investment Counselor did not note that the pill was swallowed. Fluids offered . Investment Counselor asked pt to swallow pill. " What can I do with it, " Pill was in pocket of mouth fluids given, pt reluctantly drank the apple juice.
--- NOTE | 2019-01-11 10:02 | NUR ---
NURSE NOTES: Dr Manzanares refered advertising copywriter to Dr Abdi in regards Benadryl request
[2019-01-11 11:42] LABS: BASOPHILS % (AUTO) 2.2 % (0.0-2.0); EOSINOPHILS % (AUTO) 1.3 % (0.0-3.0); HEMATOCRIT 32.2 % (42.0-52.0); HEMOGLOBIN 10.2 G/DL (14.2-18.0); LYMPHOCYTES % (AUTO) 16.2 % (20.0-45.0); MEAN CORPUSCULAR VOLUME 99 FL (80-99); MONOCYTES % (AUTO) 12.6 % (1.0-10.0); NEUTROPHILS % (AUTO) 67.7 % (45.0-75.0); PLATELET COUNT 248 K/UL (150-450); RED BLOOD COUNT 3.26 M/UL (4.70-6.10); RED CELL DISTRIBUTION WIDTH 12.8 % (11.6-14.8); WHITE BLOOD COUNT 8.6 K/UL (4.8-10.8)
[2019-01-11 11:52] LABS: ANION GAP 14 mmol/L (5-15); BLOOD UREA NITROGEN 82 mg/dL (7-18); CALCIUM 7.3 MG/DL (8.5-10.1); CARBON DIOXIDE 23 MMOL/L (21-32); CHLORIDE 100 MMOL/L (98-107); CREATININE 9.3 MG/DL (0.55-1.30); POTASSIUM 5.1 MMOL/L (3.5-5.1); SODIUM 137 MMOL/L (136-145)
[2019-01-11 12:00] VITALS: BP 134/84
--- NOTE | 2019-01-11 12:44 | Nephrology Progress Note ---
Assessment/Plan Problem List: (1) ESRD (end stage renal disease) on dialysis (2) Cocaine abuse (3) Cardiomyopathy Assessment ESRD, has a catheter - Missed dialysis yesterday Anemia of CKD Hypertensive renal and heart disease Cocaine abuse Cardiomyopathy alcohol intoxication Plan HD 01/09 next 01/11-- 2D Echo ? monitor renal parameters BP control phos binder per orders Subjective ROS Limited/Unobtainable: No Constitutional: Reports: malaise, weakness Objective Objective Last 24 Hour Vital Signs Date Time Temp Pulse Resp B/P (MAP) Pulse Ox O2 Delivery O2 Flow Rate FiO2 01/11/19 11:08 104 18 96 Room Air 21 01/11/19 09:00 Room Air 01/11/19 08:00 97.2 105 20 154/85 (108) 01/11/19 05:35 130/77 01/11/19 05:23 97.6 01/11/19 04:00 98.2 96 20 130/77 (94) 97 01/11/19 00:00 97.8 92 20 128/74 (92) 97 01/10/19 21:19 133/84 01/10/19 21:00 Room Air 01/10/19 20:14 89 18 99 Room Air 21 01/10/19 20:10 84 18 95 Room Air 21 01/10/19 20:09 88 18 95 Room Air 21 01/10/19 20:09 21 01/10/19 20:00 97.6 90 20 133/84 (100) 97 01/10/19 16:00 97.9 84 20 118/71 (87) 96 01/10/19 14:15 121/67 Intake and Output 01/10/19 01/11/19 19:00 07:00 Intake Total 300 ml 450 ml Output Total 400 ml 620 ml Balance -100 ml -170 ml Intake Oral 300 ml 450 ml Output Urine Total 400 ml 620 ml # Voids 2 3 Laboratory Tests 01/11/19 10:00: White Blood Count 8.6, Red Blood Count 3.26L, Hemoglobin 10.2L, Hematocrit 32.2L , Mean Corpuscular Volume 99, Mean Corpuscular Hemoglobin 31.4H, Mean Corpuscular Hemoglobin Concent 31.8L, Red Cell Distribution Width 12.8, Platelet Count 248, Mean Platelet Volume 6.3L, Neutrophils (%) (Auto) 67.7, Lymphocytes (%) (Auto) 16.2L, Monocytes (%) (Auto) 12.6H, Eosinophils (%) (Auto ) 1.3, Basophils (%) (Auto) 2.2H, Sodium Level 137, Potassium Level 5.1, Chloride Level 100, Carbon Dioxide Level 23, Anion Gap 14, Blood Urea Nitrogen 82H, Creatinine 9.3H, Estimat Glomerular Filtration Rate 7.2, Glucose Level 118H , Calcium Level 7.3L, Troponin I 0.004 Height (Feet): 5 Height (Inches): 9.00 Weight (Pounds): 189 General Appearance: no apparent distress Cardiovascular: tachycardia Respiratory/Chest: decreased breath sounds Abdomen: distended Richar Cm MD Jan 11, 2019 12:44
[2019-01-11] MEDS ORDERED: Carvedilol 6.25mg Tab ORAL SCH ×2 (12:45→21:00)
[2019-01-11] MEDS ORDERED: Docusate 100mg cap ORAL SCH (13:00)
--- NOTE | 2019-01-11 14:50 | Pulmonology Progress Note ---
Assessment/Plan Problems: (1) Acute alcohol intoxication (2) ESRD (end stage renal disease) on dialysis (3) Patient's noncompliance with other medical treatment and regimen (4) Cocaine abuse Assessment/Plan being dialyzed yesterday, c/o skin pain symptomatic treatment continue bp meds pt is sober now Subjective ROS Limited/Unobtainable: No Constitutional: Reports: no symptoms HEENT: Repors: no symptoms Respiratory: Reports: no symptoms Allergies: Coded Allergies: No Known Allergies (Unverified , 01/09/19) Objective Last 24 Hour Vital Signs Date Time Temp Pulse Resp B/P (MAP) Pulse Ox O2 Delivery O2 Flow Rate FiO2 01/11/19 13:51 104 154/85 01/11/19 11:08 104 18 96 Room Air 21 01/11/19 09:00 Room Air 01/11/19 08:00 97.2 105 20 154/85 (108) 01/11/19 05:35 130/77 01/11/19 05:23 97.6 01/11/19 04:00 98.2 96 20 130/77 (94) 97 01/11/19 00:00 97.8 92 20 128/74 (92) 97 01/10/19 21:19 133/84 01/10/19 21:00 Room Air 01/10/19 20:14 89 18 99 Room Air 21 01/10/19 20:10 84 18 95 Room Air 21 01/10/19 20:09 88 18 95 Room Air 21 01/10/19 20:09 21 01/10/19 20:00 97.6 90 20 133/84 (100) 97 01/10/19 16:00 97.9 84 20 118/71 (87) 96 Intake and Output 01/10/19 01/11/19 19:00 07:00 Intake Total 300 ml 450 ml Output Total 400 ml 620 ml Balance -100 ml -170 ml Intake Oral 300 ml 450 ml Output Urine Total 400 ml 620 ml # Voids 2 3 General Appearance: WD/WN HEENT: normocephalic, atraumatic Respiratory/Chest: chest wall non-tender, lungs clear Cardiovascular: normal peripheral pulses, normal rate Abdomen: normal bowel sounds Genitourinary: normal external genitalia Microbiology Date/Time Source Procedure Growth Status 01/09/19 03:00 Nasal Nares MRSA Culture - Final NO METHICILLIN RESISTANT STAPH AUREUS... Complete 01/09/19 03:00 Rectum - Final NO CARBAPENEM-RESISTANT ENTEROBACTERI... Complete 01/09/19 03:00 Rectum VRE Culture - Final NO VANCOMYCIN RESISTANT ENTEROCOCCUS ... Complete Laboratory Tests 01/11/19 10:00: White Blood Count 8.6, Red Blood Count 3.26L, Hemoglobin 10.2L, Hematocrit 32.2L , Mean Corpuscular Volume 99, Mean Corpuscular Hemoglobin 31.4H, Mean Corpuscular Hemoglobin Concent 31.8L, Red Cell Distribution Width 12.8, Platelet Count 248, Mean Platelet Volume 6.3L, Neutrophils (%) (Auto) 67.7, Lymphocytes (%) (Auto) 16.2L, Monocytes (%) (Auto) 12.6H, Eosinophils (%) (Auto ) 1.3, Basophils (%) (Auto) 2.2H, Sodium Level 137, Potassium Level 5.1, Chloride Level 100, Carbon Dioxide Level 23, Anion Gap 14, Blood Urea Nitrogen 82H, Creatinine 9.3H, Estimat Glomerular Filtration Rate 7.2, Glucose Level 118H , Calcium Level 7.3L, Troponin I 0.004 Current Medications Medications (Trade) Dose Ordered Sig/Harish Route PRN Reason Start Time Stop Time Status Last Admin Dose Admin Acetaminophen (Tylenol) 650 mg Q4H PRN ORAL T>100.5/Mild Pain 01/10/19 13:30 02/08/19 18:21 Acetaminophen/ Hydrocodone Bitart ([place] 5/325) 1 tab Q4H PRN ORAL Severe Pain (Pain Scale 7-10) 01/10/19 13:15 01/17/19 13:14 01/11/19 13:04 Albuterol/ Ipratropium (Albuterol/ Ipratropium) 3 ml Q4H PRN HHN Shortness of Breath 01/09/19 10:15 01/14/19 10:14 Carvedilol (Coreg) 6.25 mg EVERY 12 HOURS ORAL 01/11/19 21:00 02/10/19 20:59 Chlordiazepoxide (Librium) 25 mg Q6H PRN ORAL Agitation 01/09/19 10:15 01/16/19 10:14 Clonidine HCl (Catapres Tab) 0.1 mg Q4H PRN ORAL BP over 165 syst 01/09/19 10:45 02/08/19 10:44 Dextrose (Dextrose 50%) 25 ml Q30M PRN IV Hypoglycemia 01/09/19 10:15 02/08/19 10:14 Dextrose (Dextrose 50%) 50 ml Q30M PRN IV Hypoglycemia 01/09/19 10:15 02/08/19 10:14 Diphenhydramine HCl (Benadryl) 25 mg Q6H PRN ORAL Itching 01/11/19 13:45 02/10/19 13:44 01/11/19 13:50 Docusate Sodium (Colace) 100 mg TID ORAL 01/11/19 13:00 02/08/19 17:59 01/11/19 13:00 Folic Acid (Folate) 1 mg DAILY ORAL 01/09/19 10:30 02/08/19 10:29 01/11/19 08:12 Heparin Sodium (Porcine) (Heparin 5000 units/ml) 5,000 units EVERY 12 HOURS SUBQ 01/09/19 10:30 02/08/19 10:29 01/11/19 08:16 Hydralazine HCl (Apresoline) 50 mg EVERY 8 HOURS ORAL 01/09/19 10:30 02/08/19 10:29 01/11/19 05:35 Ondansetron HCl (Zofran) 4 mg Q6H PRN IVP Nausea & Vomiting 01/09/19 10:15 02/08/19 10:14 Pantoprazole (Protonix) 40 mg DAILY ORAL 01/10/19 09:00 02/09/19 08:59 01/11/19 08:11 Polyethylene Glycol (Miralax) 17 gm DAILYPRN PRN ORAL Constipation 01/09/19 10:15 02/08/19 10:14 Sevelamer Carbonate (Renvela) 1,600 mg THREE TIMES A DAY ORAL 01/11/19 13:00 02/10/19 12:59 01/11/19 13:00 Temazepam (Restoril) 15 mg HSPRN PRN ORAL Insomnia 01/09/19 21:00 01/16/19 20:59 01/11/19 01:00 Thiamine HCl (Vitamin B1) 100 mg DAILY ORAL 01/09/19 10:30 02/08/19 10:29 01/11/19 08:11 Qian Abdi MD Jan 11, 2019 14:50
--- NOTE | 2019-01-11 15:06 | NUR ---
NURSE NOTES: Dr Abdi phoned earlier in shift to clarify Benadryl order Dr gave order of Benadryl 25 mg po q6 prn itching
--- NOTE | 2019-01-11 15:07 | NUR ---
NURSE NOTES: Pt called song writer to room and stated he wanted to be discharged after Dialysis . Dr Manzanares phoned gave orders to discharge home with hospital meds and home health. Clarification, for orders Dr Manzanares referred me to Dr Abdi.
--- NOTE | 2019-01-11 15:27 | NUR ---
NURSE NOTES: Dr Abdi contacted informed senior medical writer that he will call me back in order to obtain orders. Dr Davis phoned per request of Dr Manzanares for clearance for discharge, Dr Alvarez gave clearance
[2019-01-11 16:00] VITALS: BP 125/76
[2019-01-11] MEDS ORDERED: BENADRYL25 MG ORAL (16:02)
[2019-01-11] MEDS ORDERED: VITAMIN B-1100 M2 ORAL (16:02)
[2019-01-11] MEDS ORDERED: RENVELA800 MG ORAL (16:02)
--- NOTE | 2019-01-11 16:33 | NUR ---
NURSE NOTES: Dr Shoshana ragland updated orders for pt . Gave orders to discharge, medication reconciliation done by
--- NOTE | 2019-01-11 17:30 | NUR ---
NURSE NOTES: Pt discharged provided with personal medications and pharmacy medications. Refused home health Dr Manzanares made aware. Iv removed, name band removed. Pt teaching provided renal diet. pt not receptive. " I know" I have a nurse" Attempted to give education on medication " I know" data analyst report writer asked if he why Phoslo was ordered' No what is it he replied. data analyst report writer began explaining. the purpose of medication. " I know that" " But give me a pain pill before I leave" Informed that assessment will be needed. " I will buy my own that is okay. Dialysis done 3 liters removed
--- NOTE | 2019-01-11 17:45 | NUR ---
NURSE NOTES: Pt became upset when he was informed that the Dr Manzanares gave orders for discharge with home health. " I ma going to call that Mother Erasto didnt nobody ask him to do that I already have a nurse" Dr zambrano case management consult for home health d/c Dr Manzanares made aware. Pt requested to speak to charge nurse in regards to same concern
--- NOTE | 2019-01-12 15:03 | Cardiology Report ---
APPROVED REPORT EXAM: Two-dimensional and M-mode echocardiogram with Doppler and color Doppler. M-Mode DIMENSIONS IVSd0.9 (0.7-1.1cm)Left Atrium (MM)3.3 (1.6-4.0cm) LVDd5.2 (3.5-5.6cm)Aortic Root3.4 (2.0-3.7cm) PWd1.1 (0.7-1.1cm)Aortic Cusp Exc.2.2 (1.5-2.0cm) IVSs1.5 cm LVDs3.6 (2.5-4.0cm) PWs1.1 cm Normal left ventricular chamber size, systolic function and wall motion . Left ventricular ejection fraction estimated to be 60-65 %. No evidence of left ventricular hypertrophy. Anterior Echo-free space, may be due to pericardial fat or effusion. All other cardiac chamber sizes are within normal limits. Aortic valve calcification with normal cusp excursion . Mildly thickened mitral valve leaflets with normal excursion. Mild mitral annulus and aortic root calcification. Pulmonic valve not well visualized. IVC at normal size with physiologic collapse . A color flow and spectral Doppler study was performed and revealed: No aortic insufficiency . Mitral diastolic velocities suggest reduced left ventricular relaxation c/w mild LV diastolic dysfunction (Grade I ). Trace mitral regurgitation. Mild tricuspid regurgitation. Tricuspid systolic velocities suggests peak right ventricular systolic pressure of 12mmHg.
--- NOTE | 2019-01-12 18:41 | Discharge Summary ---
Discharge Summary Discharge Summary _ DATE OF ADMISSION: 01/09/2019 DATE OF DISCHARGE: 01/11/2019 DISCHARGED BY: Dr Manzanares REASON FOR ADMISSION: 58 years old male with past medical history of congestive heart failure, hypertension, hypertensive renal and heart disease, respiratory failure, acute encephalopathy, renal failure requiring hemodialysis , anemia, cocaine abuse, low back pain, lumbar DDD, lumbar spondylosis, major depressive disorder, cluster B personality disorder, presented after missed hemodialysis. Patient reported drinking alcohol. Patient felt depressed and demanded immediate dialysis. He denied suicidal or homicidal ideation. He denied pain initially, but then reported chest pain , 6 out of 10 on a scale 1-10 . No fever, no chills. No shortness of breath. No palpitation. No nausea, vomiting, diarrhea, dysuria, abdominal pain. Upon evaluation vital signs were stable. Laboratory work-up revealed no leukocytosis, hemoglobin 10.6, hematocrit 32.7. Sodium 130 , anion gap 28 . BUN 75 creatinine 10.9. Glucose 90. Stable LFT. Troponin - 0.003. Pro BNP 2947. Serum alcohol level 78. Urinalysis revealed +3 protein, +2 blood. No evidence of UTI. Urine toxicology screen was positive for cocaine. Chest x-ray revealed no acute cardiopulmonary pathology. CONSULTANTS: pulmonary Dr. Abdi pharmacist manager Dr. Cm pain specialist Dr. Rosado HOSPITAL COURSE: Patient admitted. Travel Pt followed. Hemodialysis was arranged as per pharmacist manager with close monitoring of volumes, renal parameters and electrolytes. First dialysis provided on . Phosphate binders provided due to elevated phosphorus. Echocardiogram revealed ejection fraction of 60 to 65% with no evidence of left ventricular hypertrophy. No evidence of wall motion abnormality. Right ventricular systolic pressure of 12. Folic acid and thiamine provided. Librium was on board as needed. Supplemental oxygen provided as needed to keep pulse oximetry above 92%. Pulmonary toilet provided. Pain management was addressed as per pain specialist recommendations, and pain was controlled. Hemoglobin and hematocrit were closely monitored with goal to keep hemoglobin above 7. Prior to discharge hemoglobin 10.2, hematocrit 32.2. Supportive care provided. Bowel regimen instituted. Patient was counseled on abstinence from illicit street drugs. Patient was working with physical therapist. Patient clinically stabilized and was ready for discharge home . Home health has been arranged. However patient stated that he has his own nurse and declined arranged home health services. Patient was stable for discharge. Patient was encouraged compliance with medication regimen and hemodialysis. FINAL DIAGNOSES: End-stage renal disease, on hemodialysis Acute alcohol intoxication Uremia, due to missed hemodialysis Cocaine abuse History of cardiomyopathy Anemia of chronic kidney disease Hypertensive renal and heart disease Lumbar DDD Lumbar spondylosis DISCHARGE MEDICATIONS: See Medication Reconciliation list. DISCHARGE INSTRUCTIONS: Patient was discharged home with home health services. Follow up with primary care provider in one week. I have been assigned to dictate discharge summary for this account. I was not involved in the patient's management. Becca Velazquez NP Jan 12, 2019 18:41
--- NOTE | 2019-01-13 16:44 | Cardiology Report ---
APPROVED REPORT EKG Measurement Heart [id number] Normal sinus rhythm Prolonged QT Abnormal ECG
== END 2019-01-11 18:30 | disposition home or self-care (01) | DRG 470 ==
LOC: EMR 01:15 → EDBEDREQ 02:39 → 3E 04:34 → OBSVTOIN 04:34
PROC: 5A1D70Z Performance of Urinary Filtration, Intermittent, Less than 6 Hours Per Day (ICD-10-PCS; principal; 2019-01-11)
DX: I13.11 Hypertensive heart and chronic kidney disease without heart failure, with stage 5 chronic kidney disease, or end stage renal disease (principal); E87.2 Acidosis; I42.9 Cardiomyopathy, unspecified; I50.9 Heart failure, unspecified; N18.6 End stage renal disease; F10.129 Alcohol abuse with intoxication, unspecified; F14.10 Cocaine abuse, uncomplicated; Z99.2 Dependence on renal dialysis; M51.36 Other intervertebral disc degeneration, lumbar region; M47.896 Other spondylosis, lumbar region; D63.1 Anemia in chronic kidney disease; F32.9 Major depressive disorder, single episode, unspecified; F60.89 Other specific personality disorders
CPT/HCPCS: 36415; 71045; 80048; 80053; 80061; 80069; 80307; 80329; 81003; 82550; 82607; 82728; 82746; 82977; 83540; 83550; 83690; 83735; 83880; 84443; 84484; 84550; 85025; 85610; 85730; 86140; 86706; 87081; 93005; 93306; 94640; 94664; 96374; 99285; J7620

== ENCOUNTER 2020-06-05 17:48 | Emergency (ER) | payer OTHER ==
[~2020-06-05] VITALS: Ht 180.3 cm; Wt 95.3 kg
[~2020-06-05 17:48] MED LIST changes: +BENADRYL25 MG ORAL; +LIPITOR80 MG ORAL; +METOPROLOL TART25 MG ORAL; +PREDNISONE1 MG PO; +RENVELA800 MG ORAL; +VENTOLIN HFA18 GM INH; +VITAMIN B-1100 M2 ORAL
--- NOTE | 2020-06-05 18:07 | Emergency Room Report ---
History of Present Illness General Chief Complaint: Generalized Weakness Present Illness HPI Patient is a 60-year-old male brought in by EMS after increased generalized weakness and dizziness. Patient a prior history of end-stage renal disease as well as COPD. He reports having dialysis earlier in the day. Reports feeling somewhat lightheaded. Had multiple alcoholic drinks as well as smoking some marijuana earlier in the day. Reports having increased generalized fatigue. Patient denies any syncopal episode. States he somewhat felt lightheaded but di d not lose consciousness. Allergies: Coded Allergies: No Known Allergies (Unverified , 01/09/19) COVID-19 Screening Contact w/high risk pt: No Experienced COVID-19 symptoms?: No COVID-19 Testing performed EMERGENCY DOCTOR: No Patient History Past Medical History: see triage record Reviewed Nursing Documentation: PMH: Agreed; PSxH: Agreed Nursing Documentation-PMH Hx Cardiac Problems: Yes Hx Hypertension: Yes Hx COPD: Yes Hx Diabetes: No - RENAL FAILURE Hx Gastrointestinal Problems: Yes Hx Dialysis: Yes Hx Neurological Problems: No Review of Systems All Other Systems: negative except mentioned in HPI Physical Exam Vital Signs Date Time Temp Pulse Resp B/P (MAP) Pulse Ox O2 Delivery O2 Flow Rate FiO2 06/05/20 17:44 98.6 105 18 154/92 (112) 99 Nasal Cannula 4.0 Sp02 EP Interpretation: reviewed, normal General Appearance: normal inspection, alert, GCS 15, Chronically Ill Head: atraumatic Eyes: 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 ENT: normal ENT inspection, hearing grossly normal, normal voice Neck: normal inspection, full range of motion, supple, no bony tend Respiratory: normal inspection, lungs clear, normal breath sounds, no respiratory distress, no retraction, no wheezing Cardiovascular #1: regular rate, rhythm, no edema Gastrointestinal: normal inspection, normal bowel sounds, non tender, soft, no guarding, no hernia Genitourinary: no CVA tenderness Musculoskeletal: normal inspection, back normal, normal range of motion Neurologic: alert, motor strength/tone normal, public space attendant III-XII nml as tested, o riented x3, responsive, speech normal, normal inspection Psychiatric: normal inspection, judgement/insight normal, mood/affect normal Medical Decision Making Diagnostic Impression: Primary Impression: Alcohol related disorder Additional Impressions: Dizziness, nonspecific ESRD (end stage renal disease) ER Course Patient present for increased generalized weakness. Differential diagnosis include was not limited to anemia, pancreatitis, cardiomyopathy among others. Because of complexity of patient's case laboratory tests and imaging studies were ordered. Labs Test 06/05/20 20:05 White Blood Count 7.0 K/UL (4.8-10.8) Red Blood Count 3.00 M/UL (4.70-6.10) Hemoglobin 9.6 G/DL (14.2-18.0) Hematocrit 29.8 % (42.0-52.0) Mean Corpuscular Volume 100 FL (80-99) Mean Corpuscular Hemoglobin 32.2 PG (27.0-31.0) Mean Corpuscular Hemoglobin Concent 32.3 G/DL (32.0-36.0) Red Cell Distribution Width 14.2 % (11.6-14.8) Platelet Count 205 K/UL (150-450) Mean Platelet Volume 8.0 FL (6.5-10.1) Neutrophils (%) (Auto) 79.0 % (45.0-75.0) Lymphocytes (%) (Auto) 10.7 % (20.0-45.0) Monocytes (%) (Auto) 7.4 % (1.0-10.0) Eosinophils (%) (Auto) 1.6 % (0.0-3.0) Basophils (%) (Auto) 1.4 % (0.0-2.0) Prothrombin Time 10.7 SEC (9.30-11.50) Prothromb Time International Ratio 1.0 (0.9-1.1) Activated Partial Thromboplast Time 26 SEC (23-33) Sodium Level 137 MMOL/L (136-145) Potassium Level 4.0 MMOL/L (3.5-5.1) Chloride Level 97 MMOL/L (98-107) Carbon Dioxide Level 29 MMOL/L (21-32) Anion Gap 11 mmol/L (5-15) Blood Urea Nitrogen 44 mg/dL (7-18) Creatinine 10.8 MG/DL (0.55-1.30) Estimat Glomerular Filtration Rate 5.9 mL/min (>60) Glucose Level 91 MG/DL (74-106) Calcium Level 6.5 MG/DL (8.5-10.1) Total Bilirubin 0.2 MG/DL (0.2-1.0) Aspartate Amino Transf (AST/SGOT) 13 U/L (15-37) Alanine Aminotransferase (ALT/SGPT) 17 U/L (12-78) Alkaline Phosphatase 128 U/L (46-116) Troponin I 0.009 ng/mL (0.000-0.056) Total Protein 7.9 G/DL (6.4-8.2) Albumin 3.8 G/DL (3.4-5.0) Globulin 4.1 g/dL Albumin/Globulin Ratio 0.9 (1.0-2.7) Thyroid Stimulating Hormone (TSH) 0.755 uiU/mL (0.358-3.740) Digoxin Level < 0.2 NG/ML (0.5-2.0) Serum Alcohol 61 mg/dL EKG Diagnostic Results Troponin ordered: Yes Last Vital Signs Date Time Temp Pulse Resp B/P (MAP) Pulse Ox O2 Delivery O2 Flow Rate FiO2 06/05/20 17:44 98.6 105 18 154/92 (112) 99 Nasal Cannula 4.0 Status: improved Disposition: HOME, SELF-CARE Condition: Stable Keagan Joyce MD Jun 05, 2020 18:07
[2020-06-05] MEDS ORDERED: LISINOPRIL2.5 MG ORAL (18:10)
--- NOTE | 2020-06-05 18:55 | NUR ---
ED Nurse Note: Pt brought in by ambulance from car in parking lot c/o generalized weakness x 3 hours. Pt reports syncopal episode. Pt has hx of ESRD with Dialysis M/W/F. Pt had dialysis today. Respirations even adn unlabored on room air with occasional cough. Vitals stable as documented. A+Ox4, speaking in complete sentences.
[2020-06-05 19:01] VITALS: BP 149/88
--- NOTE | 2020-06-05 19:08 | NUR ---
HAND-OFF: Report given to ZEENAT Bennett. Pt in stable condition; plan of care endorsed.
--- NOTE | 2020-06-05 19:10 | NUR ---
ED Nurse Note: Report received from ZEENAT Goodrich.
--- NOTE | 2020-06-05 19:48 | NUR ---
ED Nurse Note: Per ER MD right EJ was placed, patient tolerated procedure well. Blood collected sent to lab
--- NOTE | 2020-06-05 20:00 | NUR ---
ED Nurse Note: Patient is resting in bed, NAD noted. Verbally responsive. Safety measures met.
[2020-06-05 20:45] LABS: BASOPHILS % (AUTO) 1.4 % (0.0-2.0); EOSINOPHILS % (AUTO) 1.6 % (0.0-3.0); HEMATOCRIT 29.8 % (42.0-52.0); HEMOGLOBIN 9.6 G/DL (14.2-18.0); LYMPHOCYTES % (AUTO) 10.7 % (20.0-45.0); MEAN CORPUSCULAR VOLUME 100 FL (80-99); MONOCYTES % (AUTO) 7.4 % (1.0-10.0); PLATELET COUNT 205 K/UL (150-450); RED CELL DISTRIBUTION WIDTH 14.2 % (11.6-14.8)
[2020-06-05 20:54] LABS: ANION GAP 11 mmol/L (5-15); BLOOD UREA NITROGEN 44 mg/dL (7-18); CALCIUM 6.5 MG/DL (8.5-10.1); CARBON DIOXIDE 29 MMOL/L (21-32); CHLORIDE 97 MMOL/L (98-107); CREATININE 10.8 MG/DL (0.55-1.30); SODIUM 137 MMOL/L (136-145)
[2020-06-05 21:09] LABS: ALANINE AMINOTRANSFERASE 17 U/L (12-78); ALBUMIN 3.8 G/DL (3.4-5.0); ALBUMIN/GLOBULIN RATIO 0.9 (1.0-2.7); ALKALINE PHOSPHATASE 128 U/L (46-116); ASPARTATE AMINO TRANSFERASE 13 U/L (15-37); BILIRUBIN,TOTAL 0.2 MG/DL (0.2-1.0)
[2020-06-05] MEDS ORDERED: Thiamine HCl 100 MG in D5W 55 ML IVPB ONE (21:30)
[2020-06-05 22:40] VITALS: BP 145/82
--- NOTE | 2020-06-05 22:40 | NUR ---
ED Nurse Note: Patient provided with karl. Awaiting on transport at this time.
[2020-06-05 23:05] VITALS: BP 145/85
--- NOTE | 2020-06-05 23:05 | NUR ---
ER DISCHARGE NOTE: Patient is cleared to be discharged per ERMD, pt is aox4, on room air, with stable vital signs. pt was given dc instructions, pt was able to verbalize understanding, pt id band and iv site removed without complications. pt is able to ambulate with steady gait with cane. pt took all belongings and assisted into taxi transport set up by insurance/pre sales technical engineer.
== END 2020-06-05 23:05 | disposition home or self-care (01) ==
LOC: EDBD 17:48 → EMR 20:44
DX: F10.99 Alcohol use, unspecified with unspecified alcohol-induced disorder (principal); Y90.3 Blood alcohol level of 60-79 mg/100 ml; R42 Dizziness and giddiness; R53.1 Weakness; I12.0 Hypertensive chronic kidney disease with stage 5 chronic kidney disease or end stage renal disease; N18.6 End stage renal disease; J44.9 Chronic obstructive pulmonary disease, unspecified; Z99.2 Dependence on renal dialysis; F12.90 Cannabis use, unspecified, uncomplicated; H54.61 Unqualified visual loss, right eye, normal vision left eye
CPT/HCPCS: 36415; 80053; 80162; 84443; 84484; 85025; 85610; 85730; 86850; 86900; 86901; 93005; 96365; G0480; Z7502; 99284